=== PATIENT | male | born 1975 | race Caucasian/White ===

== ENCOUNTER 2017-11-07 13:53 | Emergency (ER) | payer MEDICARE, SELFPAY ==
[2017-11-07 13:53] VITALS: BP 148/101; PULSE 105; RESP 14; TEMP 36.5; O2SAT 97; BMI 19.4
--- NOTE | 2017-11-07 14:04 | ED.VISSUMM ---
- ER Visit Summary Date of Service: 11/07/17 Chief Complaint: [Insect sting] History of Present Illness: The patient is a 41 M [presents to the emergency department after being stung by an insect to his left calf approximately 20 minutes ago. Patient states that he was working in his garden when he got hit by something. Patient noticed redness and swelling so he applied some ice to the area. Patient states that he began feeling nauseated and then decided to come in and get evaluated. Patient denies lip or tongue swelling or difficulty breathing. Patient is unsure what may have stung him.] Physical Examination: [HEENT-PERRLA, EOMI. Cranial nerves II through XII grossly intact. TMs clear. Mucous membranes moist. No adenopathy. No angioedema noted of the lips, tongue, or soft tissue structures of the mouth. Cardiovascular-regular rate and rhythm without murmur or ectopy Lungs-clear to auscultation, chest wall stable without crepitus or subcu emphysema Abdomen-normoactive bowel sounds, soft, nontender, no rebound or rigidity, no peritoneal signs. Extremities-intact ?4, normal range of motion, normal pulses. Left calf-medial aspect there is an area of erythema measuring approximately 8 x 5 cm with a central portion slightly raised consistent with an insect sting with local inflammatory reaction. Patient neurovascular intact. Patient has no rashes otherwise. Test Results: [None indicated] Emergency Department Course and Treatment: [Patient was given a dose of Benadryl and dose of Zofran for nausea] Treatment Plan: [Patient advised to use ice to the area and Benadryl as needed for itching.] Disposition: [Discharged home in stable condition] Impression: [Insect Sting-local reaction] This note was generated with [employer] dictation software. It may contain incorrect words, spelling, and punctuation that were not noted in review of the chart prior to signing ED Disposition - Plan for ED Patient: Chief Complaint: Bite Referrals: Jose Graham MD [Primary Care Provider] -
--- NOTE | 2017-11-07 14:06 | ED.DEP ---
ED Disposition - Plan for ED Patient: Chief Complaint: Bite Instructions: ED Bite Sting Insect Gen Allergic React Referrals: Jose Graham MD [Primary Care Provider] - 3-5 Days
[2017-11-07] MEDS: DiphenhydrAMINE 25 MG Capsule PO (14:15)
[2017-11-07] MEDS: Ondansetron ODT 4 MG Tablet PO (14:15)
== END 2017-11-07 14:18 | disposition home or self-care (01) ==
LOC: ED 14:11
PROVIDERS: Emergency Provider Emergency Medicine; Family Provider Family Medicine; PCP Family Medicine
DX: T63.481A Toxic effect of venom of other arthropod, accidental (unintentional), initial encounter (principal); Y92.9 Unspecified place or not applicable; E11.9 Type 2 diabetes mellitus without complications; I10 Essential (primary) hypertension; K21.9 Gastro-esophageal reflux disease without esophagitis; J45.909 Unspecified asthma, uncomplicated; Z72.0 Tobacco use
CPT/HCPCS: 99283

== ENCOUNTER 2017-11-19 20:04 | Inpatient (IN) | payer MEDICARE, SELFPAY ==
[2017-11-19 20:04] VITALS: BP 116/82; PULSE 81; RESP 16; TEMP 37.9; O2SAT 98; BMI 19.9
[2017-11-19 20:34] LABS: Absolute Lymphocyte Count 1.03 X10^3/ul (0.83-4.51); Absolute Neutrophil Count 8.1 X10^3/uL (2.0-7.7); Basophil# 0.03 X10^3/uL; Basophil% 0.3 % (0-1); Eosinophil# 0.17 X10^3/uL; Eosinophils% 1.6 % (0-5); Hematocrit 35.8 % (40-54); Hemoglobin 11.8 g/dl (13.0-16.5); Lymphocyte # 1.03 X10^3/ul (4.0); Mean Corpuscular Hgb 28.9 pg (27.0-32.0); Mean Corpuscular Volume 87.5 fL (80-94); Mean Platelet Vol. 10.7 fl (6.2-12.0); Monocyte# 1.02 X10^3/uL; Monocyte% 9.9 % (0-10); Neutrophil # 8.08 X10^3/uL (2.7-7.7); Platelet Count 338 K/mm3 (150-450); RBC Distribution Width CV 13.4 % (11.6-14.6); RBC Distribution Width SD 43.2 fl (35.1-43.9); Red Blood Count 4.09 M/mm3 (4.6-6.2); White Blood Count 10.4 K/mm3 (4.4-11.0)
[2017-11-19 20:35] LABS: POSITIVE COUNT NO; POSITIVE DIFFERENTIAL NO; POSITIVE MORPHOLOGY NO
[2017-11-19 20:41] LABS: Erythrocyte Sedimentation Rate 81 mm/hr (0-15)
[2017-11-19] MEDS: Acetaminophen 500 MG Tablet 1000 MG PO (20:56)
[2017-11-19 21:11] LABS: Anion Gap 11 (5-15); BUN 25 mg/dL (7-18); CRP 3.81 mg/L (0.0-3.0); Calcium,Total 8.1 mg/dL (8.5-10.1); Chloride 93 mmol/L (98-107); Creatinine, Serum 1.78 mg/dL (0.70-1.30); EST Glomerular Filtration Rate 45 mL/min (>60); Est Glom Filt Rate - Afr Amer 54 mL/min (>60); Estimated Creatinine Clearance 42.82 ml/min; Glucose 613 mg/dL (74-106); Potassium 4.5 mmol/L (3.5-5.1); Sodium Level 131 mmol/L (136-145)
--- NOTE | 2017-11-19 21:24 | ED.VISSUMM ---
- ER Visit Summary Date of Service: 11/19/17 Chief Complaint: Right lower extremity redness History of Present Illness: The patient is a 41 M presenting with right lower extremity redness and pain. He states 2 weeks ago he sustained a wound to his right lower extremity. This was healing. He states that 2 days ago he noticed increasing redness around the wound with drainage. This has been progressively worsening over the past 2 days. He has a history of insulin dependent diabetes. He states his blood sugars are not well-controlled. He has had temperature up to 100.3. Denies other complaints. Physical Examination: Vitals are stable. Temperature 100.3. Alert no acute distress. HEENT exam is unremarkable. Neck is supple. Lungs are clear and equal bilaterally. Heart is regular rate and rhythm. Abdomen is soft nontender nondistended. Extremities right anterior lower extremity erythema surrounding wound, no drainage or fluctuance. Normal distal pulses.. Skin is warm and dry. No focal neurologic deficit. Remainder of exam is unremarkable. Emergency Department Course and Treatment: Right tib-fib x-ray is normal. CBC shows hemoglobin 11.8. ESR 81, CRP 3.81. Chemistry shows sodium 131, glucose 613, BUN 25, creatinine 1.78. Patient was given IV fluids, insulin, Ancef. Discussed with the hospitalist for admission. Disposition: Admission Impression: RLE cellulitis, KADIE, hyperglycemia This note was generated with [employer] dictation software. It may contain incorrect words, spelling, and punctuation that were not noted in review of the chart prior to signing ED Disposition - Plan for ED Patient: Chief Complaint: Cellulitis Referrals: Jose Graham MD [Primary Care Provider] -
[2017-11-19] MEDS: Cefazolin 1 GM/50 ML BAG IV (21:38)
[2017-11-19] MEDS: 0.9% Normal Saline 1,000 ML 999 ML IV (21:43)
[2017-11-19] MEDS: Insulin Lispro 100 UNIT/ML INSULN.PEN 15 UNIT SC (21:43)
[2017-11-19] MEDS: Morphine 4 MG/ML Syringe IV (21:46)
[2017-11-19] MEDS: Ondansetron 4 MG/2 ML Vial IV (21:47)
[2017-11-19 22:18] VITALS: BP 109/73; PULSE 79; RESP 18; O2SAT 99
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
[2017-11-19 23:12] VITALS: BMI 20.5
[2017-11-19 23:20] VITALS: BMI 20.5
[2017-11-19 23:32] VITALS: BP 118/81; PULSE 76; RESP 16; TEMP 37.2; O2SAT 98
[2017-11-20] VITALS (9 sets, daily range): BP systolic 150–158; BP diastolic 90–102; PULSE 73–91; RESP 16–18; TEMP 36.7–37; O2SAT 94–100
[2017-11-20] MEDS: 0.9% Normal Saline 1,000 ML 100 ML IV ×3 (00:05→22:13)
[2017-11-20] MEDS: Enoxaparin 40 MG/0.4 ML Syringe SC (00:20)
[2017-11-20 00:30] LABS: Bedside Glucose 332 mg/dL (70-110)
[2017-11-20] MEDS: oxyCODONE 5 MG Tablet PO ×5 (00:32→20:19)
[2017-11-20] MEDS: Morphine 2 MG/ML Syringe IV ×2 (02:04→06:43)
[2017-11-20 03:18] LABS: M R Staph aureus DNA By PCR Negative (Negative); Probe Check PASS; Specimen Processing Control PASS; Staph aureus DNA By PCR POSITIVE (Negative)
[2017-11-20] MEDS: traMADol 50 MG Tablet PO ×3 (03:41→22:15)
[2017-11-20] MEDS: Ondansetron 4 MG/2 ML Vial IV (05:34)
[2017-11-20 06:33] LABS: Absolute Lymphocyte Count 1.53 X10^3/ul (0.83-4.51); Absolute Neutrophil Count 11.8 X10^3/uL (2.0-7.7); Anion Gap 8 (5-15); BUN 22 mg/dL (7-18); BUN/Creat Ratio 17.2 RATIO (10-20); Basophil# 0.04 X10^3/uL; Basophil% 0.3 % (0-1); Calcium,Total 7.8 mg/dL (8.5-10.1); Chloride 99 mmol/L (98-107); Creatinine, Serum 1.28 mg/dL (0.70-1.30); EST Glomerular Filtration Rate 65 mL/min (>60); Eosinophil# 0.23 X10^3/uL; Eosinophils% 1.5 % (0-5); Est Glom Filt Rate - Afr Amer 79 mL/min (>60); Estimated Creatinine Clearance 61.36 ml/min; Glucose 46 mg/dL (74-106); Hematocrit 35.7 % (40-54); Hemoglobin 12.1 g/dl (13.0-16.5); Lymphocyte # 1.53 X10^3/ul (4.0); Lymphocyte % 10.1 % (19-41); Mean Corp Hgb Conc 33.9 g/gl (32-36); Mean Corpuscular Hgb 29.4 pg (27.0-32.0); Mean Corpuscular Volume 86.7 fL (80-94); Mean Platelet Vol. 10.5 fl (6.2-12.0); Monocyte# 1.54 X10^3/uL; Monocyte% 10.1 % (0-10); Neutrophil # 11.82 X10^3/uL (2.7-7.7); Neutrophil % 77.7 % (47-70); Platelet Count 387 K/mm3 (150-450); Potassium 3.7 mmol/L (3.5-5.1); RBC Distribution Width CV 13.1 % (11.6-14.6); RBC Distribution Width SD 40.8 fl (35.1-43.9); Red Blood Count 4.12 M/mm3 (4.6-6.2); Sodium Level 135 mmol/L (136-145); White Blood Count 15.2 K/mm3 (4.4-11.0)
[2017-11-20 06:39] LABS: Differential Indicated SCAN CRITERIA MET; POSITIVE COUNT NO; POSITIVE DIFFERENTIAL YES; POSITIVE MORPHOLOGY NO
[2017-11-20] MEDS: Sucralfate 1 GM Tablet PO ×4 (06:42→22:13)
[2017-11-20 06:58] LABS: Differential Comment SCANNED
[2017-11-20] MEDS: Albuterol 2.5 MG/3 ML VIAL.NEB. INHALATION ×3 (07:02→19:20)
[2017-11-20] MEDS: Budesonide Respules 0.5 MG/2 ML AMPUL.NEB. INHALATION ×2 (07:02→19:20)
[2017-11-20 07:41] LABS: Glucose 33 mg/dL (74-106)
[2017-11-20] MEDS: Dextrose 50%-Water 25 GM/50 ML DISP.SYRIN IV (07:49)
[2017-11-20 07:51] LABS: Bedside Glucose 35 mg/dL (70-110)
[2017-11-20 07:51] LABS: Bedside Glucose 41 mg/dL (70-110)
[2017-11-20 07:51] LABS: Bedside Glucose 31 mg/dL (70-110)
[2017-11-20 08:26] LABS: Bedside Glucose 174 mg/dL (70-110)
[2017-11-20] MEDS: Gabapentin 300 MG Capsule PO ×3 (08:31→17:48)
[2017-11-20] MEDS: Multivitamins,Ther W-Minerals Tablet 1 TABLET PO (08:31)
[2017-11-20] MEDS: Metoprolol Tartrate 50 MG Tablet PO ×2 (08:31→22:13)
[2017-11-20] MEDS: hydroCHLOROthiazide 25 MG Tablet PO (08:32)
[2017-11-20] MEDS: Sertraline 100 MG Tablet PO (08:32)
[2017-11-20] MEDS: Pantoprazole Sodium 40 MG Tablet PO (08:33)
[2017-11-20] MEDS: Glucerna Shake 120 ML LIQUID PO ×4 (10:13→22:14)
--- NOTE | 2017-11-20 10:19 | PCM.PN.HOSP ---
Patient Problems: Active and Suspected Problems Cellulitis of right leg (Acute) Trip and fall (Acute) On November 05, 2017 Subjective: Patient is a 41-year-old gentleman presenting with right lower extremity warmth with erythema and assessment of cellulitis made admitted to regular nursing floor for further management Objective: GENERAL: cooperative HEENT: Clear conjunctiva, NECK; supple, normal thyroid, CHEST: Clear to auscultation bilaterally, HEART: Regular S1 S2, no audible murmurs ABDOMEN: soft, non-tender, normoactive bowel sounds, RECTAL: deferred EXTREMITIES: An open excoriation involving the skin over the right knee as well as erythema along the entire right lower extremity DIVISION SUPERINTENDENT: Awake; no lateralizing signs. SKIN: Described above Vitals/I&O's: Vital Signs Temp Pulse Resp BP Pulse Ox 98.3 F 91 16 158/102 H 100 11/20/17 05:30 11/20/17 08:31 11/20/17 07:02 11/20/17 05:30 11/20/17 05:30 Oxygen Delivery Method Room Air Weight: 57.7 kg Intake and Output for Last 24 Hours 11/18/17 11/19/17 11/20/17 23:59 23:59 23:59 Intake Total 690 / 690 Balance 690 / 690 Laboratory Results 11/20/17 00:05: Hemoglobin A1c 11.0 H 11/20/17 00:10: POC Glucose 332 H 11/20/17 00:40: MRSA (PCR) Negative 11/20/17 00:40: S.aureus Protein A PCR POSITIVE H, MRSA (PCR) Negative 11/20/17 05:54: WBC 15.2 H, RBC 4.12 L, Hgb 12.1 L, Hct 35.7 L, MCV 86.7, MCH 29.4, MCHC 33.9, RDW 13.1, RDW Differential 40.8, Plt Count 387, MPV 10.5, Immature Gran % (Auto) 0.300, Neut % (Auto) 77.7 H, Lymph % (Auto) 10.1 L, [place] % (Auto) 10.1 H, Eos % (Auto) 1.5, Baso % (Auto) 0.3, Absolute Neuts (auto) 11.8 H, Absolute Lymphs (auto) 1.53, Total Counted Not Reportable, Differential Comment SCANNED, Diff Path Review July11/20/17 05:54: Sodium 135 L, Potassium 3.7, Chloride 99, Carbon Dioxide 28.0, Anion Gap 8, BUN 22 H, Creatinine 1.28, Estim Creat Clear Calc 61.36, Est GFR (MDRD) Af Amer 79, Est GFR (MDRD) Non-Af 65, BUN/Creatinine Ratio 17.2, Glucose 46 L, Calcium 7.8 L 11/20/17 07:01: POC Glucose 35 L* 11/20/17 07:24: POC Glucose 31 L* 11/20/17 07:25: Glucose 33 L* 11/20/17 07:43: POC Glucose 41 L* 11/20/17 08:23: POC Glucose 174 H Current Medications Acetaminophen (Tylenol) 650 mg PO Q6H PRN PRN PRN Reason: Mild Pain (scale 0-3)/T>100.7 Albuterol Sulfate (Ventolin Aerosols) 2.5 mg INHALATION Q4H PRN PRN PRN Reason: Bronchospasm Albuterol Sulfate (Ventolin Aerosols) 2.5 mg INHALATION Q6HWA.RT [facility] Last Admin: 11/20/17 07:02 Dose: 2.5 mg Budesonide (Pulmicort Aerosol) 0.5 mg INHALATION Q12H.RT [facility] Last Admin: 11/20/17 07:02 Dose: 0.5 mg Dextrose (D50w Syringe) 0 gm IV X1 PRN; Protocol PRN Reason: Hypoglycemia Last Admin: 11/20/17 07:49 Dose: 25 gm Docusate Sodium (Colace) 200 mg PO BID PRN PRN PRN Reason: Constipation Enoxaparin Sodium (Lovenox) 40 mg SC DAILY [facility] Last Admin: 11/20/17 00:20 Dose: 40 mg Gabapentin (Neurontin) 300 mg PO TIDCM [facility] Last Admin: 11/20/17 08:31 Dose: 300 mg Glucagon () 1 mg IM .X1 PRN PRN Reason: Hypoglycemia Hydrochlorothiazide (Hctz) 25 mg PO DAILY [facility] Last Admin: 11/20/17 08:32 Dose: 25 mg Sodium Chloride () 1,000 mls @ 100 mls/hr IV .Q10H [facility] Last Admin: 11/20/17 00:05 Dose: 100 mls/hr Ampicillin Sodium/Sulbactam (Sodium 3 gm/ Sodium Chloride) 112 mls @ 150 mls/hr IV Q6 [facility] Last Admin: 11/20/17 06:42 Dose: 150 mls/hr Insulin Glargine (Lantus (Bkc)) 35 units SC QHS [facility] Insulin Human Lispro (Humalog Kwikpen (Bkc)) 0 unit SQ ACHS [facility] PRN Reason: Protocol Last Admin: 11/20/17 07:54 Dose: Not Given Insulin Human Lispro (Humalog Kwikpen (Bkc)) 15 unit SC TIDAC [facility] Last Admin: 11/20/17 07:54 Dose: Not Given Metoprolol Tartrate (Lopressor (Beta [place])) 50 mg PO BID [facility] Last Admin: 11/20/17 08:31 Dose: 50 mg Montelukast Sodium (Singulair) 10 mg PO QHS [facility] Morphine Sulfate () 1 - 2 mg IV Q4H PRN PRN PRN Reason: Moderate Pain (pain scale 4-5) Last Admin: 11/20/17 06:43 Dose: 2 mg Multivitamins/Minerals (Multivitamin With Minerals) [facility] Last Admin: 11/20/17 08:31 Dose: 1 tablet Nutritional Formula (Lactose Free) (Glucerna Shake) 120 ml PO 4X/DAY [facility] Last Admin: 11/20/17 10:13 Dose: 120 ml Ondansetron HCl (Zofran) 4 mg IV Q8H PRN PRN PRN Reason: Nausea Last Admin: 11/20/17 05:34 Dose: 4 mg Oxycodone HCl (Oxyir) 5 mg PO Q4H PRN PRN PRN Reason: Moderate Pain (pain scale 4-5) Last Admin: 11/20/17 05:34 Dose: 5 mg Pantoprazole Sodium (Protonix) 40 mg PO DAILY [facility] Last Admin: 11/20/17 08:33 Dose: 40 mg Pyridostigmine [place] (Mestinon) 60 mg PO TID PRN PRN PRN Reason: MYASTHENIA GRAVIS Sertraline HCl (Zoloft) 100 mg PO DAILY [facility] Last Admin: 11/20/17 08:32 Dose: 100 mg Sodium Chloride () 5 - 30 ml IV UD PRN PRN Reason: SALINE FLUSH Sucralfate (Carafate) 1 gm PO 1HR_ACHS [facility] Last Admin: 11/20/17 06:42 Dose: 1 gm Tramadol HCl (Ultram) 50 mg PO Q6H PRN PRN PRN Reason: PAIN Last Admin: 11/20/17 03:41 Dose: 50 mg Medical Necessity - Tobacco Use Smoking Status: Current every day smoker Assessment/Plan All Active Problems Cellulitis of right leg (Acute) Trip and fall (Acute) Diarrhea (Resolved) Hyperglycemia (Acute) Intractable vomiting with nausea (Resolved) Transverse colitis (Resolved) Nausea (Resolved) Patient is a 41-year-old gentleman presenting with right lower extremity warmth with erythema and assessment of cellulitis made admitted to regular nursing floor for further management 1. Right lower extremity cellulitis with an open wound over the right knee: Admitted to regular nursing floor started on Unasyn colchicine with plans to adjust antibiotic therapy based on cultures 2. Healing right knee wound; wound care nurse consulted 3. Diabetes mellitus type 1 with complications including hypo-and hyperglycemia. Patient is on long-acting insulin in addition to pre-meal insulin held this morning as a result of patient being hypoglycemic 4. Hyponatremia secondary to pseudohyponatremia from patient's hypoglycemia 5. History of myasthenia gravis 6. Hypertension-blood pressure controlled, home medications continued with dose adjustment as needed 7. Irritable syndrome 8. DVT prophylaxis SC enoxaparin Active Medications Acetaminophen (Tylenol) 650 mg PO Q6H PRN PRN PRN Reason: Mild Pain (scale 0-3)/T>100.7 Albuterol Sulfate (Ventolin Aerosols) 2.5 mg INHALATION Q4H PRN PRN PRN Reason: Bronchospasm Albuterol Sulfate (Ventolin Aerosols) 2.5 mg INHALATION Q6HWA.RT [facility] Last Admin: 11/20/17 07:02 Dose: 2.5 mg Budesonide (Pulmicort Aerosol) 0.5 mg INHALATION Q12H.RT [facility] Last Admin: 11/20/17 07:02 Dose: 0.5 mg Dextrose (D50w Syringe) 0 gm IV X1 PRN; Protocol PRN Reason: Hypoglycemia Last Admin: 11/20/17 07:49 Dose: 25 gm Docusate Sodium (Colace) 200 mg PO BID PRN PRN PRN Reason: Constipation Enoxaparin Sodium (Lovenox) 40 mg SC DAILY [facility] Last Admin: 11/20/17 00:20 Dose: 40 mg Gabapentin (Neurontin) 300 mg PO TIDCM [facility] Last Admin: 11/20/17 08:31 Dose: 300 mg Glucagon () 1 mg IM .X1 PRN PRN Reason: Hypoglycemia Hydrochlorothiazide (Hctz) 25 mg PO DAILY [facility] Last Admin: 11/20/17 08:32 Dose: 25 mg Sodium Chloride () 1,000 mls @ 100 mls/hr IV .Q10H [facility] Last Admin: 11/20/17 00:05 Dose: 100 mls/hr Ampicillin Sodium/Sulbactam (Sodium 3 gm/ Sodium Chloride) 112 mls @ 150 mls/hr IV Q6 [facility] Last Admin: 11/20/17 06:42 Dose: 150 mls/hr Insulin Glargine (Lantus (Bkc)) 35 units SC QHS [facility] Insulin Human Lispro (Humalog Kwikpen (Bkc)) 0 unit SQ ACHS [facility] PRN Reason: Protocol Last Admin: 11/20/17 07:54 Dose: Not Given Insulin Human Lispro (Humalog Kwikpen (Bkc)) 15 unit SC TIDAC [facility] Last Admin: 11/20/17 07:54 Dose: Not Given Metoprolol Tartrate (Lopressor (Beta [place])) 50 mg PO BID [facility] Last Admin: 11/20/17 08:31 Dose: 50 mg Montelukast Sodium (Singulair) 10 mg PO QHS [facility] Morphine Sulfate () 1 - 2 mg IV Q4H PRN PRN PRN Reason: Moderate Pain (pain scale 4-5) Last Admin: 11/20/17 06:43 Dose: 2 mg Multivitamins/Minerals (Multivitamin With Minerals) [facility] Last Admin: 11/20/17 08:31 Dose: 1 tablet Nutritional Formula (Lactose Free) (Glucerna Shake) 120 ml PO 4X/DAY [facility] Last Admin: 11/20/17 10:13 Dose: 120 ml Ondansetron HCl (Zofran) 4 mg IV Q8H PRN PRN PRN Reason: Nausea Last Admin: 11/20/17 05:34 Dose: 4 mg Oxycodone HCl (Oxyir) 5 mg PO Q4H PRN PRN PRN Reason: Moderate Pain (pain scale 4-5) Last Admin: 11/20/17 05:34 Dose: 5 mg Pantoprazole Sodium (Protonix) 40 mg PO DAILY [facility] Last Admin: 11/20/17 08:33 Dose: 40 mg Pyridostigmine [place] (Mestinon) 60 mg PO TID PRN PRN PRN Reason: MYASTHENIA GRAVIS Sertraline HCl (Zoloft) 100 mg PO DAILY [facility] Last Admin: 11/20/17 08:32 Dose: 100 mg Sodium Chloride () 5 - 30 ml IV UD PRN PRN Reason: SALINE FLUSH Sucralfate (Carafate) 1 gm PO 1HR_ACHS [facility] Last Admin: 11/20/17 06:42 Dose: 1 gm Tramadol HCl (Ultram) 50 mg PO Q6H PRN PRN PRN Reason: PAIN Last Admin: 11/20/17 03:41 Dose: 50 mg Clinical Impression(s) from Imaging Studies Tibia/Fibula X-Ray 11/19/17 20:22 IMPRESSION: Normal x-ray examination of the tibia and fibula. Electronically Signed: Alexandro Cortés MD at 20:46 EDT , Service support , Code Visit Inpatient E&M: [id number] [facility] Hosp L3
[2017-11-20 10:20] LABS: Pathologist Review Reviewed
--- NOTE | 2017-11-20 10:56 | NURSING ---
wound photo: right whitt
[2017-11-20] MEDS: Acetaminophen 325 MG Tablet 650 MG PO ×2 (11:00→20:20)
[2017-11-20 11:11] LABS: Bedside Glucose 208 mg/dL (70-110)
[2017-11-20] MEDS: Insulin Lispro 100 UNIT/ML INSULN.PEN SQ ×2 (11:18→17:53)
[2017-11-20 13:10] LABS: Bedside Glucose 80 mg/dL (70-110)
--- NOTE | 2017-11-20 13:18 | CASEMGMT ---
RN CM Assessment completed. See Link. Pt states he is independent, Drives. Is able to change leg dressing himself. Daughter assists with laundry as this is in the basement. Pt states he drives when he has gas$ or has friend who can drive. Was to be on Glucerna shakes at home, states his insurance called him this am to say this will be covered under his insurance now. No other needs identified. Cari ZACARIAS RN ACM
[2017-11-20 14:51] LABS: Bedside Glucose 77 mg/dL (70-110)
[2017-11-20 16:05] LABS: Bedside Glucose 94 mg/dL (70-110)
[2017-11-20 18:16] LABS: Bedside Glucose 173 mg/dL (70-110)
[2017-11-20] MEDS: Montelukast 10 MG Tablet PO (22:13)
[2017-11-20 22:26] LABS: Bedside Glucose 272 mg/dL (70-110)
[2017-11-21] VITALS: BP 150/97; PULSE 81; RESP 16; TEMP 36.7; O2SAT 95
[2017-11-21] MEDS: oxyCODONE 5 MG Tablet PO ×2 (02:34→08:09)
[2017-11-21] MEDS: Acetaminophen 325 MG Tablet 650 MG PO (02:34)
[2017-11-21] MEDS: Morphine 4 MG/ML Syringe IV (03:15)
[2017-11-21] MEDS: traMADol 50 MG Tablet PO (06:08)
--- NOTE | 2017-11-21 06:10 | NURSING ---
BG 33 at this time, lab called and notified for STAT back up, 4 oz OJ given, patient also requested apple juice. Peanut butter and crackers given at this time. Patient is awake and alert and able to eat. Patient also ordering breakfast at this time.
[2017-11-21 06:14] VITALS: BP 173/89; PULSE 83; RESP 16; TEMP 36.9; O2SAT 96
[2017-11-21] MEDS: Sucralfate 1 GM Tablet PO (06:19)
[2017-11-21 06:25] LABS: Bedside Glucose 33 mg/dL (70-110)
--- NOTE | 2017-11-21 06:42 | NURSING ---
BG rechecked- 38, patient still eating, requested more apple juice and OJ. Patient still A&0x3, awake and alert.
[2017-11-21 06:47] LABS: Glucose 29 mg/dL (74-106)
[2017-11-21 06:58] VITALS: PULSE 78; RESP 16
[2017-11-21] MEDS: Dextrose 50%-Water 25 GM/50 ML DISP.SYRIN IV (06:58)
[2017-11-21] MEDS: Budesonide Respules 0.5 MG/2 ML AMPUL.NEB. INHALATION (06:58)
[2017-11-21 07:22] LABS: Bedside Glucose 65 mg/dL (70-110)
[2017-11-21 07:22] LABS: Bedside Glucose 139 mg/dL (70-110)
[2017-11-21 07:22] LABS: Bedside Glucose 38 mg/dL (70-110)
[2017-11-21 07:59] VITALS: BP 130/90; PULSE 77; RESP 18; TEMP 36.4; O2SAT 99
[2017-11-21 08:04] VITALS: PULSE 77
[2017-11-21] MEDS: Pantoprazole Sodium 40 MG Tablet PO (08:04)
[2017-11-21] MEDS: hydroCHLOROthiazide 25 MG Tablet PO (08:04)
[2017-11-21] MEDS: Multivitamins,Ther W-Minerals Tablet 1 TABLET PO (08:04)
[2017-11-21] MEDS: Metoprolol Tartrate 50 MG Tablet PO (08:04)
[2017-11-21] MEDS: Enoxaparin 40 MG/0.4 ML Syringe SC (08:05)
[2017-11-21] MEDS: Gabapentin 300 MG Capsule PO (08:05)
[2017-11-21] MEDS: Sertraline 100 MG Tablet PO (08:05)
[2017-11-21] MEDS: Glucerna Shake 120 ML LIQUID PO (08:09)
--- NOTE | 2017-11-21 09:59 | PCM.DC ---
- Discharge Diagnoses Current Active Problems: Current Active and Chronic Problems Cellulitis of right leg (Acute) Trip and fall (Acute) On November 05, 2017 You will use the following diet at home:: Calorie/Carbohydrate Controlled (specify 1200, 1400, etc) - 1999 Allergies/Adverse Reactions: Allergies lisinopril Allergy (Verified 11/20/17 00:12) Angioedema metoclopramide HCl [From Reglan] Allergy (Verified 11/19/17 20:07) Hives Medications to take at Discharge Insulin Aspart [Novolog Flexpen] 0 units SC TIDCM 12/28/12 Metoprolol Tartrate [Lopressor (beta mariama)] 50 mg PO BID 12/28/12 Omeprazole [Prilosec] 40 mg PO DAILY 12/28/12 Albuterol Inhaler [Ventolin Hfa] 2 puff INHALATION Q4H PRN PRN 08/19/14 Gabapentin [Neurontin] 300 mg PO TID 08/19/14 Budesonide/Formoterol 160/4.5 [Symbicort 160/4.5 Mcg Inhaler (SP)] 2 puff INHALATION BID 02/23/16 Montelukast Sodium [Singulair] 10 mg PO QHS 02/23/16 Hydrochlorothiazide 25 mg PO DAILY 06/21/16 Multivitamins,Ther W-Minerals [Multivitamin With Minerals] 1 tablet PO DAILY 06/21/16 Sucralfate 1 gm PO 4X/DAY 06/21/16 Pyridostigmine [place] [Mestinon] 60 mg PO TID PRN PRN 12/03/16 Sertraline HCl [Zoloft] 100 mg PO DAILY 02/07/17 traMADol [Ultram] 50 mg PO Q6H PRN PRN #20 tablet 02/09/17 Amox/Clavulanate Tablet [Augmentin Tablet] 500 mg PO Q12H #14 tab 11/21/17 Insulin Glargine,Hum.rec.anlog [Lantus] 20 unit SQ QHS #0 11/21/17 The following prescriptions were given: Amox/Clavulanate Tablet [Augmentin Tablet] 500 mg PO Q12H #14 tab Primary Care Physician: Jose Graham MD [Primary Care Provider] - Please follow up with your Primary Care Physician in: IN 3-5 DAYS Test Results: Test results from this visit will be discussed in further detail at your follow-up appointment, if applicable. Proposed Discharge Date: 11/21/17
--- NOTE | 2017-11-21 10:23 | PCA ---
Made followup appointment to his primary care doctor
--- NOTE | 2017-11-21 12:05 | PCM.DC.SUM ---
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 Right lower extremity cellulitis with an open wound over the right knee: Admitted to regular nursing floor started on Unasyn and vancomycin. Patient was discharged home on Augmentin 2. Healing right knee wound; wound care nurse consulted 3. Diabetes mellitus type 1 with complications including hypo-and hyperglycemia. Patient is on long-acting insulin in addition to pre-meal insulin held this morning as a result of patient being hypoglycemic; Patient insulin regimen adjusted on discharge 4. Hyponatremia secondary to pseudohyponatremia from patient's hypoglycemia 5. History of myasthenia gravis 6. Hypertension-blood pressure controlled, home medications continued with dose adjustment as needed 7. Irritable syndrome 8. DVT prophylaxis SC enoxaparin Discharge Diet: 1999 Calorie Control Diet Discharge Activity: Return to Normal Activity Home Medications: Medications to take at Discharge Insulin Aspart [Novolog Flexpen] 0 units SC TIDCM 12/28/12 Metoprolol Tartrate [Lopressor (beta mariama)] 50 mg PO BID 12/28/12 Omeprazole [Prilosec] 40 mg PO DAILY 12/28/12 Albuterol Inhaler [Ventolin Hfa] 2 puff INHALATION Q4H PRN PRN 08/19/14 Gabapentin [Neurontin] 300 mg PO TID 08/19/14 Budesonide/Formoterol 160/4.5 [Symbicort 160/4.5 Mcg Inhaler (SP)] 2 puff INHALATION BID 02/23/16 Montelukast Sodium [Singulair] 10 mg PO QHS 02/23/16 Hydrochlorothiazide 25 mg PO DAILY 06/21/16 Multivitamins,Ther W-Minerals [Multivitamin With Minerals] 1 tablet PO DAILY 06/21/16 Sucralfate 1 gm PO 4X/DAY 06/21/16 Pyridostigmine [place] [Mestinon] 60 mg PO TID PRN PRN 12/03/16 Sertraline HCl [Zoloft] 100 mg PO DAILY 02/07/17 traMADol [Ultram] 50 mg PO Q6H PRN PRN #20 tablet 02/09/17 Amox/Clavulanate Tablet [Augmentin Tablet] 500 mg PO Q12H #14 tab 11/21/17 Insulin Glargine,Hum.rec.anlog [Lantus] 20 unit SQ QHS #0 11/21/17 Following Prescrptions Were Given to Patient: Amox/Clavulanate Tablet [Augmentin Tablet] 500 mg PO Q12H #14 tab Primary Care Physician: Jose Graham MD [Primary Care Provider] - Please follow up with your Primary Care Physician in: IN 3-5 DAYS Please Follow Up With: Jose Graham MD Disposition: Home Minutes spent on discharge:: 35 Patient Condition:: Stable Medical Necessity - Tobacco Use Smoking Status: Current every day smoker Meaningful Use Info Meaningful Use Diagnoses (Choose all that apply): None applicable Code Visit Inpatient E&M: 99315 Disch Hosp
== END 2017-11-21 10:22 | disposition home or self-care (01) | DRG 603 ==
LOC: ED 21:45 → MS3 22:20
PROVIDERS: Admitting Provider Internal Medicine; Emergency Provider Emergency Medicine; Family Provider Family Medicine; PCP Family Medicine; Visit Provider Internal Medicine
DX: L03.115 Cellulitis of right lower limb (principal); N17.9 Acute kidney failure, unspecified; E87.1 Hypo-osmolality and hyponatremia; Z79.4 Long term (current) use of insulin; I10 Essential (primary) hypertension; G70.00 Myasthenia gravis without (acute) exacerbation; S81.801A Unspecified open wound, right lower leg, initial encounter; W01.0XXA Fall on same level from slipping, tripping and stumbling without subsequent striking against object, initial encounter; F17.200 Nicotine dependence, unspecified, uncomplicated; E10.65 Type 1 diabetes mellitus with hyperglycemia; K58.9 Irritable bowel syndrome, unspecified; E10.40 Type 1 diabetes mellitus with diabetic neuropathy, unspecified; E10.649 Type 1 diabetes mellitus with hypoglycemia without coma
CPT/HCPCS: 36415; 73590; 80048; 82947; 82962; 83036; 85025; 85652; 86140; 87040; 87640; 87641; 93970; 94640; 97802; 99284; 99406; J7030; A4216; J0295; J2405

== ENCOUNTER 2017-11-23 15:28 | Inpatient (IN) | payer MEDICARE, SELFPAY ==
[2017-11-23] VITALS (9 sets, daily range): BP systolic 152–217; BP diastolic 97–121; PULSE 82–95; RESP 14–24; TEMP 36.4–37.2; O2SAT 96–100; BMI 20.1; BMI 20.2; BMI 22.5
--- NOTE | 2017-11-23 16:35 | ED.VISSUMM ---
- ER Visit Summary Date of Service: 11/23/17 Chief Complaint: Right lower extremity infection History of Present Illness: The patient is a 41 M with history of type 1 diabetes and recent hospitalization for right lower extremity infection who presents for worsening of the infection at home. Patient states on November 05 he fell in the [place] and injured his right whitt. He developed an infection at that site and was hospitalized this past weekend, receiving IV antibiotics. He states he was discharged 2 days ago on Augmentin and the leg looked much better at the time. The redness had resolved and he was not having pain. He is taking all doses of Augmentin since discharge without missing any. Yesterday the leg began becoming red again, and today it is much more erythematous and painful. Patient also has a low-grade fever at home. Patient is feeling nauseated. He denies any other complaints at this time. Physical Examination: Vital signs: afebrile, heart rate 95, hypertensive at 169/109, no hypoxia on room air General: well nourished, well developed, in no distress, peers uncomfortable Skin: warm, dry HEENT: normocephalic and atraumatic; PERRL, EOMI, moist mucous membranes Cardiovascular: regular rate and rhythm without murmurs, no peripheral edema, 2+ pulses all distal extremities Respiratory: No increased work of breathing, lungs are clear to auscultation bilaterally, no rales, rhonchi or wheezing Abdominal: Abdomen is soft, nontender with normoactive bowel sounds, no guarding or rebound, no masses MSK: Moves all extremities, no deformities, normal strength, pitting edema to the right foot, erythema on the anterior tibia distal to the right knee and extending to the ankle, 5 x 3 cm area of induration and fluctuance just distal to the patella, no calf tenderness Neuro: Awake and alert, oriented ?4. No facial droop, sensation and motor function intact and symmetric Test Results: Abnormal Lab Results 11/23/17 11/23/17 11/23/17 16:45 17:00 17:00 WBC 8.9 RBC 4.00 L Hgb 11.6 L Hct 35.0 L MCV 87.5 MCH 29.0 MCHC 33.1 RDW 13.6 RDW Differential 43.5 Plt Count 369 MPV 10.8 Immature Gran % (Auto) 0.300 Neut % (Auto) 76.9 H Lymph % (Auto) 11.5 L [place] % (Auto) 7.8 Eos % (Auto) 3.3 Baso % (Auto) 0.2 Absolute Neuts (auto) 6.8 Absolute Lymphs (auto) 1.02 Total Counted Not Reportable PT 12.6 INR 0.9 APTT 37.4 H Sodium Potassium Chloride Carbon Dioxide Anion Gap BUN Creatinine Estim Creat Clear Calc Est GFR (MDRD) Af Amer Est GFR (MDRD) Non-Af BUN/Creatinine Ratio Glucose Hemoglobin A1c Lactic Acid Calcium Magnesium Iron TIBC Iron Saturation Ferritin Total Bilirubin AST ALT Alkaline Phosphatase Total Protein Albumin Globulin Albumin/Globulin Ratio Folate Urine Color Yellow Urine Clarity Sl. Cloudy Urine pH 7.0 Ur Specific [place] 1.010 Urine Protein 500 H Urine Glucose (UA) 100 H Urine Ketones 5 H Urine Occult Blood 25 H Urine Nitrite Negative Urine Bilirubin Negative Urine Urobilinogen Normal Ur Leukocyte Esterase Negative Urine RBC 0-5 SEEN Urine WBC 0-5 SEEN Ur Squamous Epith Cells 0 SEEN Ur Transition Epith Cell 0-5 SEEN Urine Bacteria 0 SEEN Hyaline Casts 0-5 SEEN Urine Mucus 0 SEEN S.aureus Protein A PCR MRSA (PCR) POC Glucose 11/23/17 11/23/17 11/23/17 17:00 17:00 17:00 WBC RBC Hgb Hct MCV MCH MCHC RDW RDW Differential Plt Count MPV Immature Gran % (Auto) Neut % (Auto) Lymph % (Auto) [place] % (Auto) Eos % (Auto) Baso % (Auto) Absolute Neuts (auto) Absolute Lymphs (auto) Total Counted PT INR APTT Sodium 136 Potassium 3.7 Chloride 99 Carbon Dioxide 26.0 Anion Gap 11 BUN 17 Creatinine 1.31 H Estim Creat Clear Calc 58.91 Est GFR (MDRD) Af Amer 77 Est GFR (MDRD) Non-Af 64 BUN/Creatinine Ratio 13.0 Glucose 282 H Hemoglobin A1c Lactic Acid 0.7 Calcium 8.4 L Magnesium 2.1 Iron 30 L TIBC 175 L Iron Saturation 17.1 Ferritin 339 Total Bilirubin 0.20 AST 34 ALT 116 H Alkaline Phosphatase 417 H Total Protein 6.8 Albumin 1.5 L Globulin 5.3 H Albumin/Globulin Ratio 0.3 L Folate 30.70 Urine Color Urine Clarity Urine pH Ur Specific [place] Urine Protein Urine Glucose (UA) Urine Ketones Urine Occult Blood Urine Nitrite Urine Bilirubin Urine Urobilinogen Ur Leukocyte Esterase Urine RBC Urine WBC Ur Squamous Epith Cells Ur Transition Epith Cell Urine Bacteria Hyaline Casts Urine Mucus S.aureus Protein A PCR MRSA (PCR) POC Glucose 11/23/17 11/23/17 11/23/17 17:00 19:40 21:04 WBC RBC Hgb Hct MCV MCH MCHC RDW RDW Differential Plt Count MPV Immature Gran % (Auto) Neut % (Auto) Lymph % (Auto) [place] % (Auto) Eos % (Auto) Baso % (Auto) Absolute Neuts (auto) Absolute Lymphs (auto) Total Counted PT INR APTT Sodium Potassium Chloride Carbon Dioxide Anion Gap BUN Creatinine Estim Creat Clear Calc Est GFR (MDRD) Af Amer Est GFR (MDRD) Non-Af BUN/Creatinine Ratio Glucose Hemoglobin A1c 10.9 H Lactic Acid Calcium Magnesium Iron TIBC Iron Saturation Ferritin Total Bilirubin AST ALT Alkaline Phosphatase Total Protein Albumin Globulin Albumin/Globulin Ratio Folate Urine Color Urine Clarity Urine pH Ur Specific [place] Urine Protein Urine Glucose (UA) Urine Ketones Urine Occult Blood Urine Nitrite Urine Bilirubin Urine Urobilinogen Ur Leukocyte Esterase Urine RBC Urine WBC Ur Squamous Epith Cells Ur Transition Epith Cell Urine Bacteria Hyaline Casts Urine Mucus S.aureus Protein A PCR POSITIVE H MRSA (PCR) Negative POC Glucose 227 H Clinical Impression(s) from Imaging Studies Tibia/Fibula X-Ray 11/23/17 16:34 IMPRESSION: Normal x-ray examination of the tibia and fibula. Electronically Signed: Neisha Pride MD at 18:09 EDT Tel , Service support , Chest X-Ray 11/23/17 16:45 IMPRESSION: 1. Trace left pleural effusion versus chronic fibrosis. 2. Minimal fibrotic changes in the lung bases. Electronically Signed: Neisha Pride MD at 18:08 EDT Tel , Service support , Emergency Department Course and Treatment: Patient presents with worsening of a right lower leg infection which was recently treated and improving with inpatient management. Patient has been compliant with his antibiotics. His examination is concerning for an abscess over the large area of cellulitis. Patient had no leukocytosis. Lactate was normal at 0.7. He was afebrile but was borderline tachycardic at 95. Because of the worsening of patient's cellulitis, it may be secondary to the abscess formation and inability of the antibiotics to effectively treat this. Thus incision and drainage was performed. Verbal consent was obtained. Patient's leg was cleansed with Shur-Clens. 1% lidocaine was used to locally anesthetize the area of maximum fluctuance. A 1 cm incision was made with an 11 blade over the area of maximum fluctuance with return of copious amounts of homogenous pus. Cultures were obtained. The abscess cavity was drained and loculations were broken with curved hemostats. He tolerated the procedure well. Patient was started on Unasyn and Zosyn. He was managed with morphine. An x-ray of the tibia and fibula had been obtained to look for any subcutaneous gas or signs of deep space infection that might be concerning for necrotizing fasciitis or osteomyelitis. X-ray was unremarkable. Given patient's failure on outpatient treatment, worsening of the cellulitis, and the development of the abscess, she will benefit from further inpatient management and IV antibiotics for his cellulitis, especially given that he is diabetic. He was discussed with Dr. Huynh and admitted for further management. Treatment Plan: [] Disposition: [] Impression: Right lower extremity cellulitis with abscess, failed outpatient therapy, incision and drainage This note was generated with [employer] dictation software. It may contain incorrect words, spelling, and punctuation that were not noted in review of the chart prior to signing ED Disposition - Plan for ED Patient: Disposition: Acute Care Hospital [facility] Chief Complaint: Lower Extremity Injury
--- NOTE | 2017-11-23 16:38 | ED.DCSUM_ITS ---
- ER Visit Summary Date of Service: 11/23/17 Chief Complaint: Right lower extremity infection History of Present Illness: The patient is a 41 M with history of type 1 diabetes and recent hospitalization for right lower extremity infection who presents for worsening of the infection at home. Patient states on November 05 he fell in the [place] and injured his right whitt. He developed an infection at that site and was hospitalized this past weekend, receiving IV antibiotics. He states he was discharged 2 days ago on Augmentin and the leg looked much better at the time. The redness had resolved and he was not having pain. He is taking all doses of Augmentin since discharge without missing any. Yesterday the leg began becoming red again, and today it is much more erythematous and painful. Patient also has a low-grade fever at home. Patient is feeling nauseated. He denies any other complaints at this time. Physical Examination: Vital signs: afebrile, heart rate 95, hypertensive at 169/109, no hypoxia on room air General: well nourished, well developed, in no distress, peers uncomfortable Skin: warm, dry HEENT: normocephalic and atraumatic; PERRL, EOMI, moist mucous membranes Cardiovascular: regular rate and rhythm without murmurs, no peripheral edema, 2 + pulses all distal extremities Respiratory: No increased work of breathing, lungs are clear to auscultation bilaterally, no rales, rhonchi or wheezing Abdominal: Abdomen is soft, nontender with normoactive bowel sounds, no guarding or rebound, no masses MSK: Moves all extremities, no deformities, normal strength, pitting edema to the right foot, erythema on the anterior tibia distal to the right knee and extending to the ankle, 5 x 3 cm area of induration and fluctuance just distal to the patella, no calf tenderness Neuro: Awake and alert, oriented ?4. No facial droop, sensation and motor function intact and symmetric Test Results: Abnormal Lab Results 11/23/17 11/23/17 11/23/17 16:45 17:00 17:00 WBC 8.9 RBC 4.00 L Hgb 11.6 L Hct 35.0 L MCV 87.5 MCH 29.0 MCHC 33.1 RDW 13.6 RDW Differential 43.5 Plt Count 369 MPV 10.8 Immature Gran % (Auto) 0.300 Neut % (Auto) 76.9 H Lymph % (Auto) 11.5 L [place] % (Auto) 7.8 Eos % (Auto) 3.3 Baso % (Auto) 0.2 Absolute Neuts (auto) 6.8 Absolute Lymphs (auto) 1.02 Total Counted Not Reportable PT 12.6 INR 0.9 APTT 37.4 H Sodium Potassium Chloride Carbon Dioxide Anion Gap BUN Creatinine Estim Creat Clear Calc Est GFR (MDRD) Af Amer Est GFR (MDRD) Non-Af BUN/Creatinine Ratio Glucose Hemoglobin A1c Lactic Acid Calcium Magnesium Iron TIBC Iron Saturation Ferritin Total Bilirubin AST ALT Alkaline Phosphatase Total Protein Albumin Globulin Albumin/Globulin Ratio Folate Urine Color Yellow Urine Clarity Sl. Cloudy Urine pH 7.0 Ur Specific [place] 1.010 Urine Protein 500 H Urine Glucose (UA) 100 H Urine Ketones 5 H Urine Occult Blood 25 H Urine Nitrite Negative Urine Bilirubin Negative Urine Urobilinogen Normal Ur Leukocyte Esterase Negative Urine RBC 0-5 SEEN Urine WBC 0-5 SEEN Ur Squamous Epith Cells 0 SEEN Ur Transition Epith Cell 0-5 SEEN Urine Bacteria 0 SEEN Hyaline Casts 0-5 SEEN Urine Mucus 0 SEEN S.aureus Protein A PCR MRSA (PCR) POC Glucose 11/23/17 11/23/17 11/23/17 17:00 17:00 17:00 WBC RBC Hgb Hct MCV MCH MCHC RDW RDW Differential Plt Count MPV Immature Gran % (Auto) Neut % (Auto) Lymph % (Auto) [place] % (Auto) Eos % (Auto) Baso % (Auto) Absolute Neuts (auto) Absolute Lymphs (auto) Total Counted PT INR APTT Sodium 136 Potassium 3.7 Chloride 99 Carbon Dioxide 26.0 Anion Gap 11 BUN 17 Creatinine 1.31 H Estim Creat Clear Calc 58.91 Est GFR (MDRD) Af Amer 77 Est GFR (MDRD) Non-Af 64 BUN/Creatinine Ratio 13.0 Glucose 282 H Hemoglobin A1c Lactic Acid 0.7 Calcium 8.4 L Magnesium 2.1 Iron 30 L TIBC 175 L Iron Saturation 17.1 Ferritin 339 Total Bilirubin 0.20 AST 34 ALT 116 H Alkaline Phosphatase 417 H Total Protein 6.8 Albumin 1.5 L Globulin 5.3 H Albumin/Globulin Ratio 0.3 L Folate 30.70 Urine Color Urine Clarity Urine pH Ur Specific [place] Urine Protein Urine Glucose (UA) Urine Ketones Urine Occult Blood Urine Nitrite Urine Bilirubin Urine Urobilinogen Ur Leukocyte Esterase Urine RBC Urine WBC Ur Squamous Epith Cells Ur Transition Epith Cell Urine Bacteria Hyaline Casts Urine Mucus S.aureus Protein A PCR MRSA (PCR) POC Glucose 11/23/17 11/23/17 11/23/17 17:00 19:40 21:04 WBC RBC Hgb Hct MCV MCH MCHC RDW RDW Differential Plt Count MPV Immature Gran % (Auto) Neut % (Auto) Lymph % (Auto) [place] % (Auto) Eos % (Auto) Baso % (Auto) Absolute Neuts (auto) Absolute Lymphs (auto) Total Counted PT INR APTT Sodium Potassium Chloride Carbon Dioxide Anion Gap BUN Creatinine Estim Creat Clear Calc Est GFR (MDRD) Af Amer Est GFR (MDRD) Non-Af BUN/Creatinine Ratio Glucose Hemoglobin A1c 10.9 H Lactic Acid Calcium Magnesium Iron TIBC Iron Saturation Ferritin Total Bilirubin AST ALT Alkaline Phosphatase Total Protein Albumin Globulin Albumin/Globulin Ratio Folate Urine Color Urine Clarity Urine pH Ur Specific [place] Urine Protein Urine Glucose (UA) Urine Ketones Urine Occult Blood Urine Nitrite Urine Bilirubin Urine Urobilinogen Ur Leukocyte Esterase Urine RBC Urine WBC Ur Squamous Epith Cells Ur Transition Epith Cell Urine Bacteria Hyaline Casts Urine Mucus S.aureus Protein A PCR POSITIVE H MRSA (PCR) Negative POC Glucose 227 H Clinical Impression(s) from Imaging Studies Tibia/Fibula X-Ray 11/23/17 16:34 IMPRESSION: Normal x-ray examination of the tibia and fibula. Electronically Signed: Neisha Pride MD at 18:09 EDT Tel , Service support , Chest X-Ray 11/23/17 16:45 IMPRESSION: 1. Trace left pleural effusion versus chronic fibrosis. 2. Minimal fibrotic changes in the lung bases. Electronically Signed: Neisha Pride MD at 18:08 EDT Tel , Service support , Emergency Department Course and Treatment: Patient presents with worsening of a right lower leg infection which was recently treated and improving with inpatient management. Patient has been compliant with his antibiotics. His examination is concerning for an abscess over the large area of cellulitis. Patient had no leukocytosis. Lactate was normal at 0.7. He was afebrile but was borderline tachycardic at 95. Because of the worsening of patient's cellulitis, it may be secondary to the abscess formation and inability of the antibiotics to effectively treat this. Thus incision and drainage was performed. Verbal consent was obtained. Patient's leg was cleansed with Shur- Clens. 1% lidocaine was used to locally anesthetize the area of maximum fluctuance. A 1 cm incision was made with an 11 blade over the area of maximum fluctuance with return of copious amounts of homogenous pus. Cultures were obtained. The abscess cavity was drained and loculations were broken with curved hemostats. He tolerated the procedure well. Patient was started on Unasyn and Zosyn. He was managed with morphine. An x-ray of the tibia and fibula had been obtained to look for any subcutaneous gas or signs of deep space infection that might be concerning for necrotizing fasciitis or osteomyelitis. X-ray was unremarkable. Given patient's failure on outpatient treatment, worsening of the cellulitis, and the development of the abscess, she will benefit from further inpatient management and IV antibiotics for his cellulitis, especially given that he is diabetic. He was discussed with Dr. Huynh and admitted for further management. Treatment Plan: [] Disposition: [] Impression: Right lower extremity cellulitis with abscess, failed outpatient therapy, incision and drainage This note was generated with [employer]aya dictation software. It may contain incorrect words, spelling, and punctuation that were not noted in review of the chart prior to signing ED Disposition - Plan for ED Patient: Disposition: Acute Care Hospital [facility] Chief Complaint: Lower Extremity Injury
[2017-11-23 16:50] LABS: Bacteria 0 SEEN /hpf (None Seen); Mucous, Urine 0 SEEN /hpf (<or=2+); Squamous Epithelial Cells - UA 0 SEEN /hpf (0-5)
[2017-11-23 16:55] LABS: Color, Urine Yellow (Yellow); Glucose, Dipstick 100 mg/dl (Normal); Ketone-Dipstick 5 mg/dl (Negative); Leukocyte Esterase-Dipstick Negative /ul (Negative); Nitrite-Dipstick Negative (Negative); Occult Blood-Urine 25 /ul (Negative); Protein-Dipstick 500 mg/dl (Negative); Urine Bilirubin Dipstick Negative (Negative); Urine Clarity Sl. Cloudy (Clear); Urine Urobilinogen Normal (Normal)
[2017-11-23] MEDS: Lactated Ringers 1,000 ML 250 ML IV (16:56)
[2017-11-23] MEDS: Acetaminophen 500 MG Tablet 1000 MG PO (16:56)
[2017-11-23 17:08] LABS: Hyaline Cast 0-5 SEEN /lpf (0-5)
[2017-11-23 17:11] LABS: Absolute Lymphocyte Count 1.02 X10^3/ul (0.83-4.51); Absolute Neutrophil Count 6.8 X10^3/uL (2.0-7.7); Basophil# 0.02 X10^3/uL; Basophil% 0.2 % (0-1); Eosinophil# 0.29 X10^3/uL; Eosinophils% 3.3 % (0-5); Hemoglobin 11.6 g/dl (13.0-16.5); Lymphocyte # 1.02 X10^3/ul (4.0); Lymphocyte % 11.5 % (19-41); Mean Corp Hgb Conc 33.1 g/gl (32-36); Mean Corpuscular Volume 87.5 fL (80-94); Mean Platelet Vol. 10.8 fl (6.2-12.0); Monocyte# 0.69 X10^3/uL; Monocyte% 7.8 % (0-10); Neutrophil % 76.9 % (47-70); POSITIVE COUNT NO; POSITIVE DIFFERENTIAL NO; POSITIVE MORPHOLOGY NO; Platelet Count 369 K/mm3 (150-450); RBC Distribution Width CV 13.6 % (11.6-14.6); RBC Distribution Width SD 43.5 fl (35.1-43.9); White Blood Count 8.9 K/mm3 (4.4-11.0)
[2017-11-23 17:11] LABS: White Blood Cells 0-5 SEEN /hpf (0-5)
[2017-11-23 17:12] LABS: Red Blood Cells-Urine 0-5 SEEN /hpf (0-5); Transitional Epithelial - Ur 0-5 SEEN /hpf (0-5)
[2017-11-23 17:18] LABS: International Normalized Ratio 0.9; Prothrombin Time (Protime)PT. 12.6 SECONDS (11.7-14.9)
[2017-11-23 17:19] LABS: Partial Thromboplast Time 37.4 Seconds (24.1-36.2)
[2017-11-23 17:41] LABS: ALB/GLOB Ratio 0.3 RATIO (0.9-2.4); AST(SGOT) 34 U/L (15-37); Alanine Aminotransfer ALT/SGPT 116 U/L (16-61); Albumin, Serum 1.5 g/dL (3.2-5.0); Alkaline Phosphatase 417 U/L (45-117); Anion Gap 11 (5-15); BUN 17 mg/dL (7-18); Calcium,Total 8.4 mg/dL (8.5-10.1); Chloride 99 mmol/L (98-107); Creatinine, Serum 1.31 mg/dL (0.70-1.30); EST Glomerular Filtration Rate 64 mL/min (>60); Est Glom Filt Rate - Afr Amer 77 mL/min (>60); Estimated Creatinine Clearance 58.91 ml/min; Globulin 5.3 g/dL (2.2-4.2); Glucose 282 mg/dL (74-106); Potassium 3.7 mmol/L (3.5-5.1); Protein, Total 6.8 g/dL (6.4-8.2); Sodium Level 136 mmol/L (136-145)
[2017-11-23 17:42] LABS: Lactic Acid 0.7 mmol/L (0.4-2.0)
[2017-11-23] MEDS: Ondansetron 4 MG/2 ML Vial IV (17:49)
[2017-11-23] MEDS: Morphine 4 MG/ML Syringe IV ×2 (17:49→22:30)
[2017-11-23] MEDS: morphine 8 MG/ML Syringe IV (19:40)
--- NOTE | 2017-11-23 19:42 | PCM.HP.STD ---
Problem List (1) Cellulitis of right leg Status: Acute (2) Diabetes type I Status: Chronic Qualifiers: Diabetes mellitus complication status: with unspecified complications Qualified Code(s): E10.8 - Type 1 diabetes mellitus with unspecified complications (3) HTN (hypertension) Status: Chronic Qualifiers: Hypertension type: essential hypertension Qualified Code(s): I10 - Essential (primary) hypertension (4) IBS (irritable bowel syndrome) Status: Chronic Qualifiers: Irritable bowel syndrome type: unspecified Qualified Code(s): K58.9 - Irritable bowel syndrome without diarrhea (5) Myasthenia gravis Status: Chronic History of Present Illness Date of Admission: 11/23/17 Chief Complaint: RLE infection The patient is a 41 y/o M w/ PMHx: Diabetes mellitus type I, HTN, HLD, Chronic COPD/Asthma, Tobacco use, Myasthenia Gravis s/p thymectomy, IBS, recently admitted 11/19/17 and discharged on 11/21/17 with RLE extremity cellulitis whitt discharged on augmentin regimen for an additional 7 days of treatment, improved upon discharge initially but has been worsened since Monday with onset redness, edema and discomfort w/ some development of fluctuance with ED I+D with copious purulent output. In the ED work-up included T 99, heart rate 95, BP 169/109, respiratory rate 18, 99% on room air, BC with WBC 8.9, hemoglobin 11.6, platelet 369 without market left shift, coags unremarkable aside PTT 37.4, CMP notable for BUN/creatinine 17/1.31 (baseline creatinine 0.8-1), AST/ALT 34/116 (noted intermittent enzyme elevations prior), Alk phos 417, UA without evidence UTI, plain film R Tib/Fib unremarkable, CXR w/ trace L pleural effusion versus chronic fibrosis, minimal fibrotic changes in the lung bases. In the ED patient administered Zofran, morphine, lidocaine, Tylenol, LR, Unasyn. Wound Cx obtained s/p I+D and discussed with ED physician with Wound MRSA PCR addition. Past Medical History Past Medical History (Chronic Problems): Chronic Problems IBS (irritable bowel syndrome) (Chronic) HTN (hypertension) (Chronic) Diabetes type I (Chronic) Myasthenia gravis (Chronic) Diabetes mellitus (Chronic) Allergies lisinopril Allergy (Verified 11/23/17 15:30) Angioedema losartan Allergy (Verified 11/23/17 15:30) Angioedema metoclopramide HCl [From Reglan] Allergy (Verified 11/23/17 15:30) Hives Home Medications: Ambulatory Orders Medication Instructions Recorded Insulin Aspart [Novolog Flexpen] 0 units SC TIDCM 12/28/12 Metoprolol Tartrate [Lopressor 50 mg PO BID 12/28/12 (beta mariama)] Omeprazole [Prilosec] 40 mg PO DAILY 12/28/12 Albuterol Inhaler [Ventolin Hfa] 2 puff INHALATION Q4H PRN PRN 08/19/14 Gabapentin [Neurontin] 300 mg PO TID 08/19/14 Budesonide/Formoterol 160/4.5 2 puff INHALATION BID 02/23/16 [Symbicort 160/4.5 Mcg Inhaler (SP)] Montelukast Sodium [Singulair] 10 mg PO QHS 02/23/16 Hydrochlorothiazide 25 mg PO DAILY 06/21/16 Multivitamins,Ther W-Minerals 1 tablet PO DAILY 06/21/16 [Multivitamin With Minerals] Sucralfate 1 gm PO 4X/DAY 06/21/16 Pyridostigmine Dupont [Mestinon] 60 mg PO TID PRN PRN 12/03/16 Sertraline HCl [Zoloft] 100 mg PO DAILY 02/07/17 Amox/Clavulanate Tablet [Augmentin 500 mg PO Q12H 11/23/17 Tablet] Furosemide [Lasix] 20 mg PO DAILY 11/23/17 Insulin Glargine,Hum.rec.anlog 14 unit SQ QHS 11/23/17 [Lantus] Surgical History: - - Thymectomy, cholecystectomy, teeth resection. Psychiatric History: No pertinent psych hx Lives: With Family - Lives with his young daughter. Smoking Status: Current every day smoker - 1 ppd. Tobacco Use: Cigarettes Alcohol: None Drugs: Marijuana - *Family History Maternal History Items: - - Crohn's disease and thyroid disease. Paternal History Items: Cancer, Hypertension, - Review of Systems Constitutional: Reports: Malaise, Weakness, Fatigue. Denies: Chills, Fever, Weight Change HEENT: Denies: Head Aches, Sinus Congestion, Sinus Drainage Cardiovascular: Denies: Chest Pain, Palpitations Respiratory: Denies: Cough, Shortness of breath at rest, Sputum production Gastrointestinal: Reports: Constipation, Diarrhea. Denies: Abdominal Pain, Nausea, Vomiting Genitourinary: Denies: Dysuria Musculoskeletal: Denies: Joint Pain, Joint Tenderness Skin: Reports: Skin Changes, Wounds. Denies: Rash Neurological: Denies: Numbness, Tingling, Focal weakness Psychiatric: Denies: Anxiety, Depression, Homicidal Ideations, Suicidal Ideations Hematologic/ Lymphatic: Denies: Easy Bruising, Easy Bleeding VTE Information - Inpt Only VTE Present on Admission: No VTE Mechan Device Prophylaxis: SCD's VTE Pharm Prophylaxis ordered?: Yes Subjective: Seated upright in the ED bed, fatigued, recent I+D w/ pain to RLE. Objective: Physical Examination: General: awake, alert, oriented x 3 and cooperative, seated upright in the ED bed in no apparent distress but notes discomfort ongoing to RLE. Skin: normal color, turgor, no icterus, cyanosis except RLE w/ erythema extending from ankle to proximal whitt, edematous, tender to palpation, warm, status post I&D with wick in place with noted purulent discharge with I&D. HEENT: AT/NC, EOMI, PERRLA, mildly dry MM, no carotid bruits or JVD noted. Lungs: Mildly diminished BS BL bases, moderate effort, no rales, ronchi or wheezing. Heart: Regular rate and rhythm; no gallop, rub audible. Abdomen: soft, thin habitus, NTTP, ND, normal BS, no HSM. Extremities: no cyanosis, clubbing, see skin. Neurological: patient awake, alert, oriented x 3; cognitive function intact; pupils equally reactive to light and accomodation; cranial nerves II-XII grossly normal, moving all 4 extremities, no focal deficits, strength mildly globally decreased secondary to acute presentation. Psychiatric: affect appears normal, no acute evidence of depressive or anxiety feelings. - Physical Exam Vital Signs Temp Pulse Resp BP Pulse Ox 98.5 F 88 24 H 187/116 H 96 11/23/17 17:51 11/23/17 19:11 11/23/17 19:11 11/23/17 19:11 11/23/17 19:11 Oxygen Delivery Method Room Air Weight: 125 lb Body Mass Index (BMI) 20.1 Finger Stick Blood Glucose 406 Laboratory Tests Past 24 Hrs 11/23/17 11/23/17 11/23/17 16:45 17:00 17:00 WBC 8.9 RBC 4.00 L Hgb 11.6 L Hct 35.0 L MCV 87.5 MCH 29.0 MCHC 33.1 RDW 13.6 RDW Differential 43.5 Plt Count 369 MPV 10.8 Immature Gran % (Auto) 0.300 Neut % (Auto) 76.9 H Lymph % (Auto) 11.5 L [place] % (Auto) 7.8 Eos % (Auto) 3.3 Baso % (Auto) 0.2 Absolute Neuts (auto) 6.8 Absolute Lymphs (auto) 1.02 Total Counted Not Reportable PT 12.6 INR 0.9 APTT 37.4 H Sodium Potassium Chloride Carbon Dioxide Anion Gap BUN Creatinine Estim Creat Clear Calc Est GFR (MDRD) Af Amer Est GFR (MDRD) Non-Af BUN/Creatinine Ratio Glucose Lactic Acid Calcium Total Bilirubin AST ALT Alkaline Phosphatase Total Protein Albumin Globulin Albumin/Globulin Ratio Urine Color Yellow Urine Clarity Sl. Cloudy Urine pH 7.0 Ur Specific [place] 1.010 Urine Protein 500 H Urine Glucose (UA) 100 H Urine Ketones 5 H Urine Occult Blood 25 H Urine Nitrite Negative Urine Bilirubin Negative Urine Urobilinogen Normal Ur Leukocyte Esterase Negative Urine RBC 0-5 SEEN Urine WBC 0-5 SEEN Ur Squamous Epith Cells 0 SEEN Ur Transition Epith Cell 0-5 SEEN Urine Bacteria 0 SEEN Hyaline Casts 0-5 SEEN Urine Mucus 0 SEEN 11/23/17 11/23/17 17:00 17:00 WBC RBC Hgb Hct MCV MCH MCHC RDW RDW Differential Plt Count MPV Immature Gran % (Auto) Neut % (Auto) Lymph % (Auto) [place] % (Auto) Eos % (Auto) Baso % (Auto) Absolute Neuts (auto) Absolute Lymphs (auto) Total Counted PT INR APTT Sodium 136 Potassium 3.7 Chloride 99 Carbon Dioxide 26.0 Anion Gap 11 BUN 17 Creatinine 1.31 H Estim Creat Clear Calc 58.91 Est GFR (MDRD) Af Amer 77 Est GFR (MDRD) Non-Af 64 BUN/Creatinine Ratio 13.0 Glucose 282 H Lactic Acid 0.7 Calcium 8.4 L Total Bilirubin 0.20 AST 34 ALT 116 H Alkaline Phosphatase 417 H Total Protein 6.8 Albumin 1.5 L Globulin 5.3 H Albumin/Globulin Ratio 0.3 L Urine Color Urine Clarity Urine pH Ur Specific [place] Urine Protein Urine Glucose (UA) Urine Ketones Urine Occult Blood Urine Nitrite Urine Bilirubin Urine Urobilinogen Ur Leukocyte Esterase Urine RBC Urine WBC Ur Squamous Epith Cells Ur Transition Epith Cell Urine Bacteria Hyaline Casts Urine Mucus Assessment/Plan All Active Problems Cellulitis of right leg (Acute) Trip and fall (Acute) Diarrhea (Resolved) Hyperglycemia (Acute) Intractable vomiting with nausea (Resolved) Transverse colitis (Resolved) Nausea (Resolved) The patient is a 41 y/o M w/ PMHx: Diabetes mellitus type I, HTN, HLD, Chronic COPD/Asthma, Tobacco use, Myasthenia Gravis s/p thymectomy, IBS, recently admitted 11/19/17 and discharged on 11/21/17 with RLE extremity cellulitis whitt discharged on augmentin regimen for an additional 7 days of treatment, improved upon discharge initially but has been worsened since Monday with onset redness, edema and discomfort w/ some development of fluctuance with ED I+D with copious purulent output. (1) RLE Extremity Cellulitis w/ Abscess: Will admit to [facility], maintain on IV vanc and zosyn, pending Wound Cx and added Wound MRSA PCR, plan repeat CBC in AM, continue affected extremity elevation above heart when seated and in bed, monitor erythema outline with VS checks. (2) Acute kidney injury: Secondary to acute infection, suspected mild decreased oral intake. Admission BUN/Cr 17/1.31, prior baseline creatinine noted to be 0.8-1.0. Will hydrate, hold nephrotoxic medications and repeat chemistry in AM. (3) Elevated Liver Enzymes: Noted prior intermittent elevations, will hydrate, repeat CMP in AM given acute presentation #1. (4) Chronic Normocytic Anemia: Unclear etiology, noted ongoing, admission Hgb 11.6, stable, will obtain Fe panel, ferritin, vitamin B12 and folic acid level. (5) Diabetes mellitus type I: Continue home insulin regimen, ADA diet, accu checks w/ ISS. (6) Chronic Asthma/COPD: ATC duonebs, PRN albuterol, HOB, IS parameters. (7) Tobacco Abuse: Encouraged cessation, inpatient consultation per RT, NR if desired. (8) Myasthenia Gravis: s/p thymectomy secondary to severity and difficulty tolerating steroids with DM. (9) GERD: PPI. (10) DVT Prophylaxis: SCDs, lovenox. Code Visit Inpatient E&M: 98487 Init Hosp L3
[2017-11-23 21:27] LABS: M R Staph aureus DNA By PCR Negative (Negative); Probe Check PASS; Specimen Processing Control PASS; Staph aureus DNA By PCR POSITIVE (Negative)
[2017-11-23 21:46] LABS: Bedside Glucose 227 mg/dL (70-110)
[2017-11-23] MEDS: Metoprolol Tartrate 50 MG Tablet PO (22:28)
[2017-11-23] MEDS: Sucralfate 1 GM Tablet PO (22:28)
[2017-11-23] MEDS: Temazepam 15 MG Capsule PO (22:28)
[2017-11-23] MEDS: 0.9% Normal Saline 1,000 ML 125 ML IV (22:28)
[2017-11-23] MEDS: Gabapentin 300 MG Capsule PO (22:28)
[2017-11-23] MEDS: Insulin Lispro 100 UNIT/ML INSULN.PEN SC (22:29)
[2017-11-23] MEDS: Vancomycin IV 1,000 MG/200 ML BAG 200 MG IV (22:30)
[2017-11-23] MEDS: Montelukast 10 MG Tablet PO (22:34)
[2017-11-23 22:50] LABS: Ferritin 339 ng/mL (26-388); Iron 30 ug/dL (65-175); Iron Binding Capacity,Total 175 ug/dL (250-450); Magnesium 2.1 mg/dL (1.6-2.6); PERCENT IRON SATURATION 17.1 % (15.0-55.0)
[2017-11-23 23:07] LABS: Hemoglobin A1c 10.9 % (4.2-6.3)
--- NOTE | 2017-11-23 23:21 | PCM.RX.CS ---
Consult Pharmacy has been consulted to manage selected antiobiotic: Vancomycin Type of Consult: New start Suspected Infection: Skin/Soft tissue Labs: Sodium 136 mmol/L (136-145) 11/23/17 17:00 Potassium 3.7 mmol/L (3.5-5.1) 11/23/17 17:00 Chloride 99 mmol/L (98-107) 11/23/17 17:00 Carbon Dioxide 26.0 mmol/L (21.0-32.0) 11/23/17 17:00 Anion Gap 11 (5-15) 11/23/17 17:00 BUN 17 mg/dL (7-18) 11/23/17 17:00 Creatinine 1.31 mg/dL (0.70-1.30) H 11/23/17 17:00 Est GFR (MDRD) Af Amer 77 mL/min (>60) 11/23/17 17:00 Est GFR (MDRD) Non-Af 64 mL/min (>60) 11/23/17 17:00 BUN/Creatinine Ratio 13.0 RATIO (10-20) 11/23/17 17:00 Glucose 282 mg/dL (74-106) H 11/23/17 17:00 Estimated Creatinine Clearance: 58.91 Goal Trough: 10-15 mcg/mL Pharmacy Plan for Drug Dosing: Pharmacy Service will continue to monitor and adjust dosing as required. Medications Vancomycin HCl 1,250 mg/ (Sodium Chloride) 275 mls @ 167 mls/hr IV Q24H [place] Vancomycin HCl (Vancomycin) 1,000 mg in 200 mls @ 200 mls/hr IV X1 ONE Stop: 11/23/17 23:29 Last Admin: 11/23/17 22:30 Dose: 200 mls/hr Follow-Up Labs: Trough Vancomycin Labs to be done on [date and time ordered]: 11/26 @ 6510
[2017-11-23] MEDS: HYDROcodone Bitartrate/Apap 5/325 Tablet PO (23:41)
[2017-11-24] VITALS (9 sets, daily range): BP systolic 135–162; BP diastolic 73–111; PULSE 56–102; RESP 16–18; TEMP 36.6–37.2; O2SAT 97–100
[2017-11-24] MEDS: 0.9% NaCl Peripheral Flush Adult/Peds IV ×6 (02:42→22:51)
[2017-11-24] MEDS: Morphine 4 MG/ML Syringe IV ×6 (02:42→22:56)
[2017-11-24] MEDS: Acetaminophen 325 MG Tablet 650 MG PO (02:44)
[2017-11-24] MEDS: HYDROcodone Bitartrate/Apap 5/325 Tablet PO ×3 (05:47→18:03)
[2017-11-24] MEDS: Gabapentin 300 MG Capsule PO ×3 (05:47→22:49)
[2017-11-24 06:48] LABS: Absolute Lymphocyte Count 0.99 X10^3/ul (0.83-4.51); Absolute Neutrophil Count 5.5 X10^3/uL (2.0-7.7); Basophil# 0.04 X10^3/uL; Basophil% 0.5 % (0-1); Eosinophil# 0.25 X10^3/uL; Eosinophils% 3.2 % (0-5); Hematocrit 29.9 % (40-54); Lymphocyte # 0.99 X10^3/ul (4.0); Lymphocyte % 12.6 % (19-41); Mean Corp Hgb Conc 33.4 g/gl (32-36); Mean Corpuscular Hgb 29.5 pg (27.0-32.0); Mean Corpuscular Volume 88.2 fL (80-94); Monocyte# 0.95 X10^3/uL; Monocyte% 12.1 % (0-10); Neutrophil # 5.54 X10^3/uL (2.7-7.7); Neutrophil % 70.7 % (47-70); Platelet Count 306 K/mm3 (150-450); RBC Distribution Width CV 13.2 % (11.6-14.6); RBC Distribution Width SD 40.9 fl (35.1-43.9); Red Blood Count 3.39 M/mm3 (4.6-6.2); White Blood Count 7.8 K/mm3 (4.4-11.0)
[2017-11-24 06:54] LABS: POSITIVE COUNT NO; POSITIVE DIFFERENTIAL NO; POSITIVE MORPHOLOGY NO
[2017-11-24] MEDS: Sucralfate 1 GM Tablet PO ×4 (06:55→22:48)
[2017-11-24 07:06] LABS: Bedside Glucose 145 mg/dL (70-110)
[2017-11-24] MEDS: Ipratropium/Albuterol Sulfate 3 ML AMPUL.NEB INHALATION ×3 (07:06→19:07)
[2017-11-24 07:20] LABS: ALB/GLOB Ratio 0.3 RATIO (0.9-2.4); AST(SGOT) 18 U/L (15-37); Alanine Aminotransfer ALT/SGPT 77 U/L (16-61); Albumin, Serum 1.1 g/dL (3.2-5.0); Alkaline Phosphatase 322 U/L (45-117); Anion Gap 8 (5-15); BUN 16 mg/dL (7-18); BUN/Creat Ratio 14.7 RATIO (10-20); Calcium,Total 7.7 mg/dL (8.5-10.1); Chloride 104 mmol/L (98-107); Creatinine, Serum 1.09 mg/dL (0.70-1.30); EST Glomerular Filtration Rate 79 mL/min (>60); Est Glom Filt Rate - Afr Amer 95 mL/min (>60); Estimated Creatinine Clearance 78.36 ml/min; Glucose 148 mg/dL (74-106); Potassium 3.7 mmol/L (3.5-5.1); Protein, Total 5.1 g/dL (6.4-8.2); Sodium Level 140 mmol/L (136-145)
[2017-11-24] MEDS: 0.9% Normal Saline 1,000 ML 125 ML IV ×2 (08:26→16:50)
[2017-11-24] MEDS: Enoxaparin 30 MG/0.3 ML Syringe SC (08:27)
[2017-11-24] MEDS: Multivitamins,Ther W-Minerals Tablet 1 TABLET PO (08:27)
[2017-11-24] MEDS: Metoprolol Tartrate 50 MG Tablet PO ×2 (08:27→22:49)
[2017-11-24] MEDS: Sertraline 100 MG Tablet PO (08:27)
[2017-11-24] MEDS: Pantoprazole Sodium 40 MG Tablet PO (08:27)
[2017-11-24 09:03] LABS: Vitamin B12 699 pg/mL (211-911)
--- NOTE | 2017-11-24 09:14 | PCM.PROGNOTE ---
Subjective: Chief complaint: Follow-up after admission for acute right leg cellulitis with abscess, status post bedside incision and drainage. Patient seen and examined. No acute events overnight. He complains of mild discomfort at the upper part of the right leg. Denied fever chills overnight. Patient was admitted 3 days ago for the same problem, discharged on October, on Augmentin but swelling and erythema of the right leg started to come back since yesterday. His vital signs are stable, afebrile. - Physical Exam General: Alert, Oriented x3, Cooperative, No apparent distress HEENT: Atraumatic, PERRLA, EOMI, Normocephalic Oral: Moist Mucosa, No Gingival or Mucosal Lesions/ Ulcerations Neck: Supple, No JVD, Negative Carotid Bruits, Trachea Midline, Thyroid Normal Size and Texture Lungs: Clear to auscultation, Normal air movement, No rhonchi, No wheeze, No rales Cardiovascular: Regular rate, Regular Rhythm, Normal S1, Normal S2, PMI Normal Abdomen: Bowel Sounds Present, Soft, Non Tender, Non-Distended, No Hepato-splenomegaly Extremities: No clubbing, No cyanosis, No edema Skin: No rashes, - - Right leg: Open longitudinal wound on the upper third of the right whitt surrounded by erythema and swelling extending up to just below the right knee as well as almost down to the right ankle. Lymphatic: No Cervical, Supraclavicular, or Inguinal Adenopathy Neurological: Cranial nerves II-XII grossly intact, Motor Exam 5/5 strength throughout Psych/Mental Status: Normal Affect, Appropriate, Alert and oriented to time, place, person, mood and affect Vital Signs Temp Pulse Resp BP Pulse Ox 98.6 F 56 L 18 135/73 H 97 11/24/17 08:22 11/24/17 08:27 11/24/17 08:22 11/24/17 08:22 11/24/17 08:22 Oxygen Delivery Method Room Air Weight: 139 lb 12.369 oz Body Mass Index (BMI) 22.5 Intake and Output for Last 24 Hours 11/22/17 11/23/17 11/24/17 23:59 23:59 23:59 Intake Total 347 / 347 1171 / 1171 Output Total 600 / 600 Balance 347 / 347 571 / 571 Laboratory Tests Past 24 Hrs 11/24/17 11/24/17 11/24/17 06:00 06:00 06:00 WBC 7.8 RBC 3.39 L Hgb 10.0 L Hct 29.9 L MCV 88.2 MCH 29.5 MCHC 33.4 RDW 13.2 RDW Differential 40.9 Plt Count 306 MPV 11.0 Immature Gran % (Auto) 0.900 Neut % (Auto) 70.7 H Lymph % (Auto) 12.6 L [place] % (Auto) 12.1 H Eos % (Auto) 3.2 Baso % (Auto) 0.5 Absolute Neuts (auto) 5.5 Absolute Lymphs (auto) 0.99 Total Counted Not Reportable Sodium 140 Potassium 3.7 Chloride 104 Carbon Dioxide 28.0 Anion Gap 8 BUN 16 Creatinine 1.09 Estim Creat Clear Calc 78.36 Est GFR (MDRD) Af Amer 95 Est GFR (MDRD) Non-Af 79 BUN/Creatinine Ratio 14.7 Glucose 148 H Calcium 7.7 L Total Bilirubin 0.10 L AST 18 ALT 77 H Alkaline Phosphatase 322 H Total Protein 5.1 L Albumin 1.1 L Globulin 4.0 Albumin/Globulin Ratio 0.3 L Vitamin B12 699 POC Glucose 11/24/17 11/23/17 06:52 21:04 POC Glucose 145 H 227 H Medical Necessity - Tobacco Use Smoking Status: Current every day smoker - 1 ppd. Tobacco Use: Cigarettes Assessment/Plan All Active Problems Cellulitis of right leg (Acute) This is a 41 years old male patient presented to the emergency room because of worsening right leg swelling, erythema and pain in context of recent discharge from the hospital because of right leg cellulitis and he was found to have right leg cellulitis with abscess status post bedside incision and drainage #1 acute bacterial right leg cellulitis/abscess: Status post bedside incision and drainage that was done by ER physician yesterday. He is on IV Unasyn and vancomycin. Patient was on Augmentin after discharge from the hospital on October,. Patient stated that when he was discharged, swelling and erythema of the artery improved but since yesterday, has been getting worse. His vital signs are stable, afebrile. No evidence of sepsis or severe sepsis. He has no leukocytosis. Blood, urine and wound cultures are pending. Wound care nurse consulted. Plan to continue same treatment. #2 acute kidney injury: Probably secondary to acute infection. Patient has been on IV fluids, creatinine came down to normal. Admission creatinine was 1.31. It came down to 1.01 today, improved. #3 chronically elevated LFT: This is chronic, unclear etiology. Patient denied any abdominal pain, denied right upper quadrant abdominal pain and it has been going on for couple of years. He denied drinking alcohol. No past history of hepatitis. #4 uncontrolled type 1 diabetes mellitus: Hemoglobin A1c is 10.9. He is on Lantus insulin nightly and sliding scale. Plan to monitor and adjust insulin dosage accordingly. #5 chronic anemia: It is normocytic anemia likely because of anemia of chronic disease. Today's hemoglobin is 10 compensated, stable. #6 hypertension: Blood pressure stable, continue metoprolol, IV hydralazine as needed. #7 asthma/COPD: Pulse ox is maintained on room air. Continue DuoNeb every 6 hours, albuterol as needed. #8 myasthenia gravis: Status post thymectomy, on Mestinon. #9 GERD: Continue Protonix. #10 DVT prophylaxis: Subcu Lovenox. This note was generated with [employer] dictation software. It may contain incorrect words, spelling, and punctuation that were not noted in checking the note before signing. Code Visit Inpatient E&M: 86422 Subs Hosp L2
--- NOTE | 2017-11-24 11:00 | CASEMGMT ---
ERICH MAURICIO Face to Face with patient for initial transition planning/care coordination assessment. ERICH MAURICIO introduced self and role at [facility]. Patient lying in bed, alert and oriented. Patient willing to participate in assessment and is able to answer all questions appropriately. Care providers, pharmacy, and demographics verified. Patient wishes to discharge home, denies need for home health at this time. ERICH MAURICIO discussed that CM will continue to monitor patient for need for HHC based on coarse of treatment. Patient states he has no further needs or concerns at this time. CM to follow for discharge planning needs that may arise. Patient was recently discharged on 11/21/17 for Cellulitis of right leg with wound care instructions and oral antibiotic. Follow-up appt was made for 11/30/[address] Graham PCP. Patient denied need for HHC. Disposition Plan: Patient to discharge home with follow-up plans in place. Will monitor for need for HHC based on coarse of treatment.
[2017-11-24] MEDS: Insulin Lispro 100 UNIT/ML INSULN.PEN SC ×2 (11:09→22:50)
--- NOTE | 2017-11-24 11:17 | NURSING ---
dressing being changed at this time by karuna rankin RN
--- NOTE | 2017-11-24 11:20 | NURSING ---
wound photo: right lower leg
[2017-11-24 11:21] LABS: Bedside Glucose 158 mg/dL (70-110)
--- NOTE | 2017-11-24 15:01 | NURSING ---
pt requested bgt be taken at this time- instead of later at 1630- same completed.
[2017-11-24 15:06] LABS: Bedside Glucose 139 mg/dL (70-110)
[2017-11-24] MEDS: Ondansetron 4 MG/2 ML Vial IV (19:12)
--- NOTE | 2017-11-24 19:54 | NURSING ---
pt was very happy at start of shift and very talkative. patient became very agitated and sad- tearful at times today. States he has a lot of family issues on top of being here in hospital. patient requesting prn morphine and norco every time due- but states that he only was taking motrin at home. Patient very agitated in room- at shift change and states that he cannot tolerate my noisy neighbor all night- notified that we will look into getting patient another room if he finds it to be intolerable. Patient states he will let us know if he needs something.
[2017-11-24] MEDS: Montelukast 10 MG Tablet PO (22:49)
[2017-11-24] MEDS: Temazepam 15 MG Capsule PO (22:58)
[2017-11-24 23:16] LABS: Bedside Glucose 337 mg/dL (70-110)
[2017-11-25] VITALS (10 sets, daily range): BP systolic 133–159; BP diastolic 86–97; PULSE 80–104; RESP 16–18; TEMP 36.8–37.1; O2SAT 92–98
[2017-11-25] MEDS: HYDROcodone Bitartrate/Apap 5/325 Tablet PO ×3 (00:52→19:22)
[2017-11-25] MEDS: Morphine 4 MG/ML Syringe IV ×5 (03:47→22:25)
[2017-11-25] MEDS: Ondansetron 4 MG/2 ML Vial IV ×2 (03:47→16:09)
[2017-11-25] MEDS: 0.9% Normal Saline 1,000 ML 125 ML IV ×2 (03:48→13:03)
--- NOTE | 2017-11-25 03:54 | NURSING ---
pt awake had diarrhea asked for items to clean up and get bed linen changed. C/o pain when I came back into the room he was throwing up in the trash can. States Took a sip of water and then had a cough then started to throw up. Meds given.
[2017-11-25] MEDS: 0.9% NaCl Peripheral Flush Adult/Peds IV ×2 (04:34→22:25)
[2017-11-25] MEDS: proMETHazine 25 MG/ML Syringe 12.5 MG IV ×2 (04:34→17:02)
[2017-11-25] MEDS: Insulin Lispro 100 UNIT/ML INSULN.PEN SC ×4 (06:10→22:21)
[2017-11-25 06:31] LABS: Bedside Glucose 185 mg/dL (70-110)
[2017-11-25] MEDS: Ipratropium/Albuterol Sulfate 3 ML AMPUL.NEB INHALATION ×3 (07:41→19:05)
[2017-11-25] MEDS: Sucralfate 1 GM Tablet PO ×4 (08:05→22:21)
[2017-11-25] MEDS: Pantoprazole Sodium 40 MG Tablet PO (08:05)
[2017-11-25] MEDS: Metoprolol Tartrate 50 MG Tablet PO ×2 (08:06→22:21)
[2017-11-25] MEDS: Multivitamins,Ther W-Minerals Tablet 1 TABLET PO (08:06)
[2017-11-25] MEDS: Sertraline 100 MG Tablet PO (08:06)
[2017-11-25] MEDS: Gabapentin 300 MG Capsule PO ×3 (08:07→22:21)
[2017-11-25] MEDS: Enoxaparin 30 MG/0.3 ML Syringe SC (08:07)
--- NOTE | 2017-11-25 08:19 | PCM.PROGNOTE ---
Subjective: Chief complaint: Follow-up after admission for acute right leg cellulitis with abscess, status post bedside incision and drainage. Patient seen and examined. No acute events overnight. Today, he denies any significant complaints. Erythema and swelling of the right leg is getting better. His vital signs are stable, afebrile. - Physical Exam General: Alert, Oriented x3, Cooperative, No apparent distress HEENT: Atraumatic, PERRLA, EOMI, Normocephalic Oral: Moist Mucosa, No Gingival or Mucosal Lesions/ Ulcerations Neck: Supple, No JVD, Negative Carotid Bruits, Trachea Midline, Thyroid Normal Size and Texture Lungs: Clear to auscultation, Normal air movement, No rhonchi, No wheeze, No rales Cardiovascular: Regular rate, Regular Rhythm, Normal S1, Normal S2, No murmurs Abdomen: Bowel Sounds Present, Soft, Non Tender, Non-Distended, No Hepato-splenomegaly Extremities: No clubbing, No cyanosis, No edema Skin: No rashes, Ulcer/ Wound, - - Right leg: Swelling and erythema improved, still there is some erythema around the site of the incision and drainage. Lymphatic: No Cervical, Supraclavicular, or Inguinal Adenopathy Neurological: Cranial nerves II-XII grossly intact, Neuro grossly intact Psych/Mental Status: Normal Affect, Appropriate, Alert and oriented to time, place, person, mood and affect Vital Signs Temp Pulse Resp BP Pulse Ox 98.2 F 92 18 159/92 H 98 11/25/17 08:01 11/25/17 08:06 11/25/17 08:01 11/25/17 08:01 11/25/17 08:01 Oxygen Delivery Method Room Air Weight: 139 lb 12.369 oz Body Mass Index (BMI) 22.5 Intake and Output for Last 24 Hours 11/23/17 11/24/17 11/25/17 23:59 23:59 23:59 Intake Total 347 / 347 3815 / 3815 1977 Output Total 600 / 600 200 / 200 Balance 347 / 347 3215 / 3215 1778 / 1778 Laboratory Tests Past 24 Hrs 11/24/17 06:00 Vitamin B12 699 POC Glucose 11/25/17 11/24/17 11/24/17 06:09 22:48 14:54 POC Glucose 185 H 337 H 139 H 11/24/17 11:02 POC Glucose 158 H Medical Necessity - Tobacco Use Smoking Status: Current every day smoker - 1 ppd. Tobacco Use: Cigarettes Assessment/Plan All Active Problems Cellulitis of right leg (Acute) This is a 41 years old male patient presented to the emergency room because of worsening right leg swelling, erythema and pain in context of recent discharge from the hospital because of right leg cellulitis and he was found to have right leg cellulitis with abscess status post bedside incision and drainage #1 acute bacterial right leg cellulitis/abscess: Status post bedside incision and drainage that was done by ER physician on admission. He is on IV Unasyn and vancomycin. His vital signs are stable, afebrile. Wound culture revealed MSSA. Local erythema and swelling of the right leg is improving. Urine culture showed no growth. Blood cultures pending. Plan: DC IV vancomycin, continue IV Unasyn. #2 acute kidney injury: Probably secondary to acute infection. Patient has been on IV fluids, creatinine came down to normal. Admission creatinine was 1.31. It came down to 1.01 yesterday, improved. #3 chronically elevated LFT: This is chronic, unclear etiology. Patient denied any abdominal pain, denied right upper quadrant abdominal pain and it has been going on for couple of years. He denied drinking alcohol. No past history of hepatitis. #4 uncontrolled type 1 diabetes mellitus: Blood sugar has been under fair control. Hemoglobin A1c is 10.9. He is on Lantus insulin nightly and sliding scale. #5 chronic anemia: It is normocytic anemia likely because of anemia of chronic disease. Yesterday's hemoglobin is 10 compensated, stable. #6 hypertension: Blood pressure stable, continue metoprolol, IV hydralazine as needed. #7 asthma/COPD: Pulse ox is maintained on room air. Continue DuoNeb every 6 hours, albuterol as needed. #8 myasthenia gravis: Status post thymectomy, on Mestinon. #9 GERD: Continue Protonix. #10 DVT prophylaxis: Subcu Lovenox. This note was generated with [employer] dictation software. It may contain incorrect words, spelling, and punctuation that were not noted in checking the note before signing. Code Visit Inpatient E&M: 43721 Subs Hosp L2
[2017-11-25 11:26] LABS: Bedside Glucose 239 mg/dL (70-110)
--- NOTE | 2017-11-25 11:44 | CASEMGMT ---
RN CM Note. Pt continues on IV Unasyn. If dc plan is for po antibiotics, pt can return home. IF IV antibiotics are recommended on dc, will need to stay to have set up on Monday by CM. Cari BURGERN RN ACM
[2017-11-25 16:16] LABS: Bedside Glucose 331 mg/dL (70-110)
[2017-11-25] MEDS: Montelukast 10 MG Tablet PO (22:21)
[2017-11-25] MEDS: Temazepam 15 MG Capsule PO (22:28)
[2017-11-25 23:10] LABS: Bedside Glucose 393 mg/dL (70-110)
[2017-11-26 02:00] VITALS: BP 132/84; PULSE 81; RESP 14; TEMP 37.2; O2SAT 95
[2017-11-26] MEDS: 0.9% NaCl Peripheral Flush Adult/Peds IV (03:32)
[2017-11-26] MEDS: Morphine 4 MG/ML Syringe IV (03:32)
[2017-11-26] MEDS: HYDROcodone Bitartrate/Apap 5/325 Tablet PO (06:36)
[2017-11-26] MEDS: Sucralfate 1 GM Tablet PO ×2 (06:36→10:46)
[2017-11-26] MEDS: Gabapentin 300 MG Capsule PO (06:36)
[2017-11-26] MEDS: Insulin Lispro 100 UNIT/ML INSULN.PEN SC (06:40)
[2017-11-26 06:51] LABS: Bedside Glucose 250 mg/dL (70-110)
[2017-11-26 06:52] VITALS: PULSE 89; RESP 18; O2SAT 96
[2017-11-26] MEDS: Ipratropium/Albuterol Sulfate 3 ML AMPUL.NEB INHALATION (06:52)
[2017-11-26 07:37] VITALS: BP 144/89; PULSE 90; RESP 16; TEMP 36.9; O2SAT 93
[2017-11-26] MEDS: Ondansetron 4 MG/2 ML Vial IV (07:44)
[2017-11-26] MEDS: Multivitamins,Ther W-Minerals Tablet 1 TABLET PO (07:45)
--- NOTE | 2017-11-26 09:03 | PCM.DC ---
You will use the following diet at home:: Calorie/Carbohydrate Controlled (specify 1200, 1400, etc) - 1800 ana maria, Cardiac Your food should be the consistency of: Regular Discharge Activity: Return to Normal Activity, May not drive while taking narcotic pain medications. Weight Bearing Status: Weight bearing as tolerated Call your doctor if your incision/area has: Continuous Slow Oozing, Increased Pain/ Swelling, Increased Redness, Foul Smelling Discharge, Swelling at the incision site Call your doctor if you observe: Fever of 101 or Higher, Shortness of breath, Dizziness, Fainting spells, Chest pain, Increased palpitations (irregular heartbeat), Uncontrolled pain Additional Instructions: Follow-up with the wound care center this coming week. Allergies/Adverse Reactions: Allergies lisinopril Allergy (Verified 11/23/17 15:30) Angioedema losartan Allergy (Verified 11/23/17 15:30) Angioedema metoclopramide HCl [From Reglan] Allergy (Verified 11/23/17 15:30) Hives Medications to take at Discharge Insulin Aspart [Novolog Flexpen] 0 units SC TIDCM 12/28/12 Metoprolol Tartrate [Lopressor (beta mariama)] 50 mg PO BID 12/28/12 Omeprazole [Prilosec] 40 mg PO DAILY 12/28/12 Albuterol Inhaler [Ventolin Hfa] 2 puff INHALATION Q4H PRN PRN 08/19/14 Gabapentin [Neurontin] 300 mg PO TID 08/19/14 Budesonide/Formoterol 160/4.5 [Symbicort 160/4.5 Mcg Inhaler (SP)] 2 puff INHALATION BID 02/23/16 Montelukast Sodium [Singulair] 10 mg PO QHS 02/23/16 Hydrochlorothiazide 25 mg PO DAILY 06/21/16 Multivitamins,Ther W-Minerals [Multivitamin With Minerals] 1 tablet PO DAILY 06/21/16 Sucralfate 1 gm PO 4X/DAY 06/21/16 Pyridostigmine [place] [Mestinon] 60 mg PO TID PRN PRN 12/03/16 Sertraline HCl [Zoloft] 100 mg PO DAILY 02/07/17 Furosemide [Lasix] 20 mg PO DAILY 11/23/17 Insulin Glargine,Hum.rec.anlog [Lantus] 14 unit SQ QHS 11/23/17 Levofloxacin [Levaquin] 750 mg PO DAILY #7 tab 11/26/17 Mupirocin [Bactroban] 1 applic TOPICAL TID #1 tube 11/26/17 traMADol [Ultram] 50 mg PO Q12H PRN PRN #10 tab 11/26/17 The following prescriptions were given: traMADol [Ultram] 50 mg PO Q12H PRN PRN #10 tab PRN Reason: Right leg pain Levofloxacin [Levaquin] 750 mg PO DAILY #7 tab Mupirocin [Bactroban] 1 applic TOPICAL TID #1 tube Primary Care Physician: Jose Graham MD [Primary Care Provider] - Please follow up with your Primary Care Physician in: 1 week. Test Results: Test results from this visit will be discussed in further detail at your follow-up appointment, if applicable.
[2017-11-26 10:44] VITALS: BP 144/89; PULSE 90
[2017-11-26] MEDS: Enoxaparin 30 MG/0.3 ML Syringe SC (10:44)
[2017-11-26] MEDS: Metoprolol Tartrate 50 MG Tablet PO (10:44)
[2017-11-26] MEDS: Sertraline 100 MG Tablet PO (10:45)
[2017-11-26] MEDS: Pantoprazole Sodium 40 MG Tablet PO (10:45)
[2017-11-26 11:10] LABS: Bedside Glucose 141 mg/dL (70-110)
[2017-11-26 12:18] VITALS: BP 158/80; PULSE 96; RESP 18; TEMP 37.1; O2SAT 96
--- NOTE | 2017-11-26 14:56 | PCM.DC.SUM ---
Discharge Date and Diagnosis Date of Admission: 11/23/17 Date of Discharge: 11/26/17 - Primary Discharge Diagnosis #1 acute MSSA right leg cellulitis/abscess status post bedside incision and drainage. #2 acute kidney injury. #3 uncontrolled type 1 diabetes mellitus. #4 chronically elevated LFTs. - Secondary Discharge Diagnosis Chronic Problems IBS (irritable bowel syndrome) (Chronic) HTN (hypertension) (Chronic) Diabetes type I (Chronic) Myasthenia gravis (Chronic) Hospital Course and Treatment Imaging Results: Clinical Impression(s) from Imaging Studies Tibia/Fibula X-Ray 11/23/17 16:34 IMPRESSION: Normal x-ray examination of the tibia and fibula. Electronically Signed: Neisha Pride MD at 18:09 EDT Tel , Service support , Chest X-Ray 11/23/17 16:45 IMPRESSION: 1. Trace left pleural effusion versus chronic fibrosis. 2. Minimal fibrotic changes in the lung bases. Electronically Signed: Neisha Pride MD at 18:08 EDT Tel , Service support , Consultations 11/23/17 21:44 Consult: Onc/Wound/admeasurer Routine Comment: Operations: None Procedures: None Summary of Care Provided: Patient was seen and examined on the day of discharge and appeared to be stable to be discharged home. Swelling and erythema of the right leg significantly improved. He has been afebrile since admission. His vital signs are stable. - Physical Exam General: Alert, Oriented x3, Cooperative, No apparent distress. HEENT: Atraumatic, PERRLA, EOMI. Neck: Supple, No JVD, Negative Carotid Bruits, Trachea Midline, Thyroid Normal. Lungs: Clear to auscultation, Normal air movement, No rhonchi, No wheeze, No rales. Cardiovascular: Regular rate, Regular Rhythm, Normal S1, Normal S2, PMI Normal. Abdomen: Bowel Sounds Present, Soft, Non Tender, Non-Distended, No Hepato-splenomegaly. Extremities: No clubbing, No cyanosis, No edema Skin: No rashes, No breakdown Neurological: Neuro grossly intact Vital Signs are stable. Hospital course: This is a 41 years old male patient presented to the emergency room because of worsening right leg swelling, erythema and pain in context of recent discharge from the hospital because of right leg cellulitis and he was found to have right leg cellulitis with abscess status post bedside incision and drainage #1 acute MSSA right leg cellulitis/abscess: Status post bedside incision and drainage that was done by ER physician on admission. Patient was treated with IV Unasyn and vancomycin. There was no evidence of sepsis or severe sepsis. Patient remained afebrile throughout admission. Staph aureus screen by PCR was positive but MRSA screen was negative. With IV antibiotic therapy, local erythema and swelling of the right leg improved. Blood and urine culture showed no growth. Wound culture revealed MSSA. Patient discharged home in a stable medical condition, discharged on Levaquin daily for 7 days, discharged on Bactroban topically 3 times daily for 7 days, recommended to follow-up with PCP in 1 week and follow-up with the wound care center in 3-5 days. #2 acute kidney injury: Probably secondary to acute infection. Treated with IV fluids and his kidney function returned back to normal. #3 chronically elevated LFT: This is chronic, unclear etiology. Patient denied any abdominal pain, denied right upper quadrant abdominal pain and it has been going on for couple of years. Recommend follow-up with PCP. #4 uncontrolled type 1 diabetes mellitus: Blood sugar has been fluctuating throughout admission. It goes from 140s up to 300s. Hemoglobin A1c is 10.9. Continued on Lantus insulin nightly and sliding scale, recommended to check blood sugar at least 4 times a day, follow-up with PCP. Patient discharged home in a stable medical condition, discharged on Levaquin for 7 days, and topical Bactroban, instructed and highly recommended to follow-up with the wound care center within 2-5 days, follow-up with PCP in 1 week. This note was generated with [employer] dictation software. It may contain incorrect words, spelling, and punctuation that were not noted in checking the note before signing. Discharge Activity: Return to Normal Activity, May not drive while taking narcotic pain medications. Weight Bearing Status: Weight bearing as tolerated Call your doctor if your incision/area has: Continuous Slow Oozing, Increased Pain/ Swelling, Increased Redness, Foul Smelling Discharge, Swelling at the incision site Call your doctor if you observe: Fever of 101 or Higher, Shortness of breath, Dizziness, Fainting spells, Chest pain, Increased palpitations (irregular heartbeat), Uncontrolled pain Home Medications: Medications to take at Discharge Insulin Aspart [Novolog Flexpen] 0 units SC TIDCM 12/28/12 Metoprolol Tartrate [Lopressor (beta mariama)] 50 mg PO BID 12/28/12 Omeprazole [Prilosec] 40 mg PO DAILY 12/28/12 Albuterol Inhaler [Ventolin Hfa] 2 puff INHALATION Q4H PRN PRN 08/19/14 Gabapentin [Neurontin] 300 mg PO TID 08/19/14 Budesonide/Formoterol 160/4.5 [Symbicort 160/4.5 Mcg Inhaler (SP)] 2 puff INHALATION BID 02/23/16 Montelukast Sodium [Singulair] 10 mg PO QHS 02/23/16 Hydrochlorothiazide 25 mg PO DAILY 06/21/16 Multivitamins,Ther W-Minerals [Multivitamin With Minerals] 1 tablet PO DAILY 06/21/16 Sucralfate 1 gm PO 4X/DAY 06/21/16 Pyridostigmine Grant [Mestinon] 60 mg PO TID PRN PRN 12/03/16 Sertraline HCl [Zoloft] 100 mg PO DAILY 02/07/17 Furosemide [Lasix] 20 mg PO DAILY 11/23/17 Insulin Glargine,Hum.rec.anlog [Lantus] 14 unit SQ QHS 11/23/17 Levofloxacin [Levaquin] 750 mg PO DAILY #7 tab 11/26/17 Mupirocin [Bactroban] 1 applic TOPICAL TID #1 tube 11/26/17 traMADol [Ultram] 50 mg PO Q12H PRN PRN #10 tab 11/26/17 Following Prescrptions Were Given to Patient: traMADol [Ultram] 50 mg PO Q12H PRN PRN #10 tab PRN Reason: Right leg pain Levofloxacin [Levaquin] 750 mg PO DAILY #7 tab Mupirocin [Bactroban] 1 applic TOPICAL TID #1 tube Primary Care Physician: Jose Graham MD [Primary Care Provider] - Please follow up with your Primary Care Physician in: 1 week. Disposition: Home Minutes spent on discharge:: 32 Patient Condition:: Stable Medical Necessity - Tobacco Use Smoking Status: Current every day smoker - 1 ppd. Tobacco Use: Cigarettes Meaningful Use Info Meaningful Use Diagnoses (Choose all that apply): None applicable Code Visit Inpatient E&M: 63572 Disch Hosp
--- NOTE | 2017-11-26 15:03 | DS.PCM_ITS ---
Discharge Date and Diagnosis Date of Admission: 11/23/17 Date of Discharge: 11/26/17 - Primary Discharge Diagnosis #1 acute MSSA right leg cellulitis/abscess status post bedside incision and drainage. #2 acute kidney injury. #3 uncontrolled type 1 diabetes mellitus. #4 chronically elevated LFTs. - Secondary Discharge Diagnosis Chronic Problems IBS (irritable bowel syndrome) (Chronic) HTN (hypertension) (Chronic) Diabetes type I (Chronic) Myasthenia gravis (Chronic) Hospital Course and Treatment Imaging Results: Clinical Impression(s) from Imaging Studies Tibia/Fibula X-Ray 11/23/17 16:34 IMPRESSION: Normal x-ray examination of the tibia and fibula. Electronically Signed: Neisha Pride MD at 18:09 EDT Tel , Service support , Chest X-Ray 11/23/17 16:45 IMPRESSION: 1. Trace left pleural effusion versus chronic fibrosis. 2. Minimal fibrotic changes in the lung bases. Electronically Signed: Neisha Pride MD at 18:08 EDT Tel , Service support , Consultations 11/23/17 21:44 Consult: Onc/Wound/data modeling architect Routine Comment: Operations: None Procedures: None Summary of Care Provided: Patient was seen and examined on the day of discharge and appeared to be stable to be discharged home. Swelling and erythema of the right leg significantly improved. He has been afebrile since admission. His vital signs are stable. - Physical Exam General: Alert, Oriented x3, Cooperative, No apparent distress. HEENT: Atraumatic, PERRLA, EOMI. Neck: Supple, No JVD, Negative Carotid Bruits, Trachea Midline, Thyroid Normal. Lungs: Clear to auscultation, Normal air movement, No rhonchi, No wheeze, No rales. Cardiovascular: Regular rate, Regular Rhythm, Normal S1, Normal S2, PMI Normal. Abdomen: Bowel Sounds Present, Soft, Non Tender, Non-Distended, No Hepato- splenomegaly. Extremities: No clubbing, No cyanosis, No edema Skin: No rashes, No breakdown Neurological: Neuro grossly intact Vital Signs are stable. Hospital course: This is a 41 years old male patient presented to the emergency room because of worsening right leg swelling, erythema and pain in context of recent discharge from the hospital because of right leg cellulitis and he was found to have right leg cellulitis with abscess status post bedside incision and drainage #1 acute MSSA right leg cellulitis/abscess: Status post bedside incision and drainage that was done by ER physician on admission. Patient was treated with IV Unasyn and vancomycin. There was no evidence of sepsis or severe sepsis. Patient remained afebrile throughout admission. Staph aureus screen by PCR was positive but MRSA screen was negative. With IV antibiotic therapy, local erythema and swelling of the right leg improved. Blood and urine culture showed no growth. Wound culture revealed MSSA. Patient discharged home in a stable medical condition, discharged on Levaquin daily for 7 days, discharged on Bactroban topically 3 times daily for 7 days, recommended to follow-up with PCP in 1 week and follow-up with the wound care center in 3-5 days. #2 acute kidney injury: Probably secondary to acute infection. Treated with IV fluids and his kidney function returned back to normal. #3 chronically elevated LFT: This is chronic, unclear etiology. Patient denied any abdominal pain, denied right upper quadrant abdominal pain and it has been going on for couple of years. Recommend follow-up with PCP. #4 uncontrolled type 1 diabetes mellitus: Blood sugar has been fluctuating throughout admission. It goes from 140s up to 300s. Hemoglobin A1c is 10.9. Continued on Lantus insulin nightly and sliding scale, recommended to check blood sugar at least 4 times a day, follow-up with PCP. Patient discharged home in a stable medical condition, discharged on Levaquin for 7 days, and topical Bactroban, instructed and highly recommended to follow- up with the wound care center within 2-5 days, follow-up with PCP in 1 week. This note was generated with [employer] dictation software. It may contain incorrect words, spelling, and punctuation that were not noted in checking the note before signing. Discharge Activity: Return to Normal Activity, May not drive while taking narcotic pain medications. Weight Bearing Status: Weight bearing as tolerated Call your doctor if your incision/area has: Continuous Slow Oozing, Increased Pain/ Swelling, Increased Redness, Foul Smelling Discharge, Swelling at the incision site Call your doctor if you observe: Fever of 101 or Higher, Shortness of breath, Dizziness, Fainting spells, Chest pain, Increased palpitations (irregular heartbeat), Uncontrolled pain Home Medications: Medications to take at Discharge Insulin Aspart [Novolog Flexpen] 0 units SC TIDCM 12/28/12 Metoprolol Tartrate [Lopressor (beta mariama)] 50 mg PO BID 12/28/12 Omeprazole [Prilosec] 40 mg PO DAILY 12/28/12 Albuterol Inhaler [Ventolin Hfa] 2 puff INHALATION Q4H PRN PRN 08/19/14 Gabapentin [Neurontin] 300 mg PO TID 08/19/14 Budesonide/Formoterol 160/4.5 [Symbicort 160/4.5 Mcg Inhaler (SP)] 2 puff INHALATION BID 02/23/16 Montelukast Sodium [Singulair] 10 mg PO QHS 02/23/16 Hydrochlorothiazide 25 mg PO DAILY 06/21/16 Multivitamins,Ther W-Minerals [Multivitamin With Minerals] 1 tablet PO DAILY Sucralfate 1 gm PO 4X/DAY 06/21/16 Pyridostigmine Gordo [Mestinon] 60 mg PO TID PRN PRN 12/03/16 Sertraline HCl [Zoloft] 100 mg PO DAILY 02/07/17 Furosemide [Lasix] 20 mg PO DAILY 11/23/17 Insulin Glargine,Hum.rec.anlog [Lantus] 14 unit SQ QHS 11/23/17 Levofloxacin [Levaquin] 750 mg PO DAILY #7 tab 11/26/17 Mupirocin [Bactroban] 1 applic TOPICAL TID #1 tube 11/26/17 traMADol [Ultram] 50 mg PO Q12H PRN PRN #10 tab 11/26/17 Following Prescrptions Were Given to Patient: traMADol [Ultram] 50 mg PO Q12H PRN PRN #10 tab PRN Reason: Right leg pain Levofloxacin [Levaquin] 750 mg PO DAILY #7 tab Mupirocin [Bactroban] 1 applic TOPICAL TID #1 tube Primary Care Physician: Jose Graham MD [Primary Care Provider] - Please follow up with your Primary Care Physician in: 1 week. Disposition: Home Minutes spent on discharge:: 32 Patient Condition:: Stable Medical Necessity - Tobacco Use Smoking Status: Current every day smoker - 1 ppd. Tobacco Use: Cigarettes Meaningful Use Info Meaningful Use Diagnoses (Choose all that apply): None applicable Code Visit Inpatient E&M: 74054 Disch Hosp
--- NOTE | 2017-11-28 16:07 | CASEMGMT ---
ERICH MAURICIO Discharge Follow-up Phone Call: MARILYN: 13 Strata: 4 Call Date: 11/28/17 Discharge Date: 11/29/17 Time of Call: 1610 Duration: 3 min Admitting Diagnosis: RLE cellulitis, Abscess ERICH MAURICIO completed follow-up phone call after recent hospitalization. Patient states he is doing well and had no questions regarding discharge instructions. 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 Patient states she has a follow-up appt with PCP on .
== END 2017-11-26 12:20 | disposition home or self-care (01) | DRG 603 ==
LOC: ED 16:46 → MS3 20:59
PROVIDERS: Admitting Provider Family Medicine; Emergency Provider Emergency Medicine; Family Provider Family Medicine; PCP Family Medicine; Visit Provider Hospitalist
DX: L03.115 Cellulitis of right lower limb (principal); N17.9 Acute kidney failure, unspecified; L02.415 Cutaneous abscess of right lower limb; B95.61 Methicillin susceptible Staphylococcus aureus infection as the cause of diseases classified elsewhere; E10.65 Type 1 diabetes mellitus with hyperglycemia; R79.89 Other specified abnormal findings of blood chemistry; K58.9 Irritable bowel syndrome, unspecified; I10 Essential (primary) hypertension; G70.00 Myasthenia gravis without (acute) exacerbation; Z79.4 Long term (current) use of insulin; J44.9 Chronic obstructive pulmonary disease, unspecified; F17.210 Nicotine dependence, cigarettes, uncomplicated; D63.8 Anemia in other chronic diseases classified elsewhere
CPT/HCPCS: 10060; 36415; 71045; 73590; 80053; 81001; 82607; 82728; 82746; 82962; 83036; 83540; 83550; 83605; 83735; 85025; 85610; 85730; 87040; 87070; 87077; 87086; 87186; 87205; 87640; 94640; 97802; 99284; 99406; J7030; J7050; J7120; A4216; J0295; J2405

== ENCOUNTER → 2018-04-17 15:34 | Outpatient (CLI) | payer MEDICARE, SELFPAY ==
[2017-11-23 21:57] VITALS: BMI 22.5
[2018-04-17 17:42] LABS: Protein, Urine (Random) 875.6 mg/dL (<11.9); Protein:Creat Ratio 14841 mg/g CRE (0-200)
--- OUTSIDE RECORDS SUMMARY | 2018-06-19 21:42 | XMS RPT_ITS ---
:1975 Author Organization OHIP Support Name Relationship Address Phone LISSET [facility] Unavailable [address] + [place] [address] D Unavailable Unavailable Unavailable BUSCHUR, LISSET Unavailable [address] + [place] [address] D Unavailable Unavailable Unavailable BUSCHUR, LISSET Unavailable [address] + [place] [address] D Unavailable Unavailable Unavailable BUSCHUR, LISSET Unavailable [address] + [place] [address] D Unavailable Unavailable Unavailable BUSCHUR, LISSET Unavailable [address] + [place] [address] D Unavailable Unavailable Unavailable BUSCHUR, LISSET Unavailable [address] + [place] [address] D Unavailable Unavailable Unavailable BUSCHUR, LISSET Unavailable [address] + [place] [address] D Unavailable Unavailable Unavailable BUSCHUR, LISSET Unavailable [address] + [place] [address] D Unavailable Unavailable Unavailable BUSCHUR, LISSET Unavailable [address] + [place] [address] D Unavailable Unavailable Unavailable BUSCHUR, LISSET Unavailable [address] + [place] [address] D Unavailable Unavailable Unavailable BUSCHUR, LISSET Unavailable [address] + [place] [address] D Unavailable Unavailable Unavailable BUSCHUR, LISSET Unavailable [address] + [place] [address] D Unavailable Unavailable Unavailable BUSCHUR, LISSET Unavailable [address] + [place] [address] D Unavailable Unavailable Unavailable Care Team Providers Name Role Phone CASSIE GRAHAM) Referring Unavailable CASSIE GRAHAM) Referring Unavailable CASSIE GRAHAM) Referring Unavailable CASSIE GRAHAM) Referring Unavailable CASSIE GRAHAM) Attending Unavailable CASSIE GRAHAM) Attending Unavailable PODLOGARBERE (ALFREDO) Attending Unavailable CASSIE GRAHAM) Referring Unavailable CASSIE GRAHAM) Referring Unavailable RAYO FAM Attending Unavailable PODLOGAR, BERE (ALFREDO) Attending Unavailable CASSIE GRAHAM) Referring Unavailable TESTRAKECARI Referring Unavailable TESTRAKECARI Attending Unavailable ADRIEN PARADA Attending Unavailable CASSIE GRAHAM) Referring Unavailable KALININJR Benito (PICKER / PACKER) Referring Unavailable TESTRAKECARI Referring Unavailable ADRIEN PARADA Referring Unavailable CASSIE GRAHAM) Referring Unavailable ADRIEN PARADA Referring Unavailable JANIE GAITAN Attending Unavailable CARI HDZ Referring Unavailable LEE MCNAMARA Attending Unavailable CASSIE GRAHAM) Attending Unavailable CASSIE GRAHAM) Referring Unavailable CASSIE GRAHAM) Referring Unavailable KALININAJR (PICKER / PACKER) Referring Unavailable CASSIE GRAHAM) Referring Unavailable VESNA HARRISON (ASSOCIATE DIRECTOR) Attending Unavailable JOSHUA CAMPBELL Attending Unavailable LEE MCNAMARA Referring Unavailable TESTRACARI ARENAS Attending Unavailable TESTRAKECARI Referring Unavailable Nina Vang Attending Unavailable Bursley, Jose Primary Care Unavailable Nina Vang Attending Unavailable Taj Nina Referring Unavailable Bursley, Jose Primary Care Unavailable Bursley, Jose Primary Care Unavailable Juanita Matthews Attending Unavailable Bursley, Jose Primary Care Unavailable Alexis, Inocencio Admitting Unavailable Van Ga Attending Unavailable Alexis, Inocencio Admitting Unavailable Alexis, Inocencio Attending Unavailable Bursley, Jose Primary Care Unavailable Alexis, Inocencio Consulting Unavailable Alexis, Inocencio Admitting Unavailable Van Ga Attending Unavailable Bursley, Jose Primary Care Unavailable Kittoe, Van Consulting Unavailable Alexis, Inocencio Admitting Unavailable Van Ga Attending Unavailable Gladys, Jose Primary Care Unavailable Van Ga Consulting Unavailable Bursley, Jose Primary Care Unavailable White, Heidi Admitting Unavailable Ashelfah, Ghasem Attending Unavailable White, Heidi Attending Unavailable Bursley, Jose Primary Care Unavailable White, Heidi Admitting Unavailable Ashelfah, Ghasem Attending Unavailable Bursley, Jose Primary Care Unavailable Ashelfah, Ghasem Consulting Unavailable White, Heidi Admitting Unavailable Ashelfah, Ghasem Attending Unavailable Bursley, Jose Primary Care Unavailable Ashelfah, Ghasem Consulting Unavailable White, Heidi Admitting Unavailable Ashelfah, Ghasem Attending Unavailable Gladys, Jose Primary Care Unavailable Ashelfah, Ghasem Consulting Unavailable Chao Wei Attending Unavailable Alexis, Inocencio Referring Unavailable PROBLEMS PROBLEMS DATE TYPE CONDITION / CODE ATTENDING STATUS SOURCE 03/07/2018 Active Generalized NA Active [facility] abdominal pain / [facility] R10.84(ICD-10) [place] Rep[facility] 03/06/2018 Active Diarrhea, NA Active [facility] unspecified / [facility] R19.7(ICD-10) [place] [facility] 03/06/2018 Active Encounter for NA Active [facility] screening for other [facility] disorder / [place] Z13.89(ICD-10) Repository 10/03/2016 Active Myasthenia gravis NA Active [facility] without (acute) [facility] exacerbation / [place] G70.00(ICD-10) Repository 01/17/2018 Active Full incontinence of NA Active [facility] feces / [facility] R15.9(ICD-10) [place] [facility] 01/17/2018 Active Epigastric pain / NA Active [facility] R10.13(ICD-10) [facility] [place] [facility] 01/17/2018 Active Other specified NA Active [facility] diabetes mellitus [facility] with diabetic [place] autonomic Repository (poly)neuropathy / E13.43(ICD-10) 01/17/2018 Active Fatty (change of) NA Active [facility] liver, not elsewhere [facility] classified / [place] K76.0(ICD-10) Repository 01/17/2018 Active Essential (primary) NA Active [facility] hypertension / [facility] I10(ICD-10) [place] [facility] 01/17/2018 Active Moderate NA Active [facility] protein-calorie [facility] malnutrition / [place] E44.0(ICD-10) Repository 01/03/2018 Active Abnormal results of NA Active [facility] liver function [facility] studies / [place] R94.5(ICD-10) Repository 01/03/2018 Active Nausea / NA Active [facility] R11.0(ICD-10) [facility] [place] [facility] 10/03/2016 Active Type 2 diabetes NA Active [facility] mellitus with other [facility] diabetic [place] neurological Repository complication / E11.49(ICD-10) 12/28/2017 Active Tinea unguium / NA Active [facility] B35.1(ICD-10) [facility] [place] [facility] 12/28/2017 Active Other specified NA Active [facility] symptoms and signs [facility] involving the [place] circulatory and Repository respiratory systems / R09.89(ICD-10) 12/26/2017 Active Nonspecific NA Active [facility] elevation of levels [facility] of transaminase and [place] lactic acid Repository dehydrogenase (ldh) / R74.0(ICD-10) 12/26/2017 Active Unknown / BISI, Active [facility] UNK(Unknown) ADRIEN J [facility] [place] [facility] 12/22/2017 Active Pain, unspecified / NA Active [facility] R52(ICD-10) [facility] [place] [facility] 12/07/2017 Active Acute kidney NA Active [facility] failure, unspecified [facility] / N17.9(ICD-10) [place] [facility] 12/07/2017 Active Other specified NA Active [facility] disorders of the [facility] male genital organs [place] / N50.89(ICD-10) Repository 12/07/2017 Active Localized edema / NA Active [facility] R60.0(ICD-10) [facility] [place] Rep[facility] 12/18/2017 Unknown M79.89 - Other Chao Wei Active [facility] specified soft Community tissue disorders / Hospital M79.89(ICD-10) Repository 11/07/2017 Active Other half-way NA Active [facility] (current) drug [facility] therapy / [place] Z79.899(ICD-10) Repository 04/27/2017 Active Other nonspecific NA Active [facility] abnormal finding of [facility] lung field / [place] R91.8(ICD-10) Repository 04/25/2017 Active Type 1 diabetes NA Active [facility] mellitus with [facility] diabetic [place] polyneuropathy / Repository E10.42(ICD-10) 04/25/2017 Active Other specified NA Active [facility] abnormal findings of [facility] blood chemistry / [place] R79.89(ICD-10) Repository 04/25/2017 Active Anemia, unspecified NA Active [facility] / D64.9(ICD-10) Clinic [facility] [place] Rep[facility] 04/25/2017 Active Pleural effusion, NA Active [facility] not elsewhere [facility] Main classified / [place] J90(ICD-10) Repository 04/25/2017 Active Mixed hyperlipidemia NA Active [facility] / E78.2(ICD-10) [facility] Main [place] Repository PROCEDURES PROCEDURES No Procedure Records FoundRESULTS RESULTS PROGRESS Observed: 04/20/2018 Status: COMPLETED Source: [place] 3:10 PM [facility] REPOSITORY HNO ID: [id number] Author: Lisset Nunn) Navin Service: (none) Author Type: Clinical Recruiter Type: Progress Notes Filed: 04/20/2018 3:11 PM Note Text: [facility] HYDROBLASTER QUICKNOTE Provider Action/FYI: Patient is opted out of the care gap registry per Dr. Graham. This was discussed at the teamlet meeting. Patient identified by name and . Lisset Soler MA PROGRESS Observed: 04/20/2018 Status: COMPLETED Source: [place] 10:41 AM [facility] REPOSITORY HNO ID: [id number] Author: Joshua Campbell Service: (none) Author Type: Physician Type: Progress Notes Filed: 04/20/2018 5:10 PM Note Text: NEUROLOGY CONSULT [facility] Chief Complaint: MG REQUESTING PHYSICIAN: Lee Mcnamara DO My final recommendations will be communicated to the requesting health care provider by way of the shared medical record for internal providers or letter via the [employer] for external providers.??? History of Present Illness: This is a 42 year old y.o. right handed male with history of DM type I, gastroparesis, IBD, MG, s/p thymectomy (2001), HLD, HTN who presents today for neurologic consultation. The patient was referred to neurology for evaluation of MG. Mr. Kaiser reports hx of MG, Ab+ in [address] Caruso at [facility]. Symptoms before Dx- diplopia, ptosis, and weakness. He never had myasthenic crisis. MG meds- Imuran and mestinon. Steroids never used b/c hx of DM type I. Thymectomy performed in 2001. Imuran d/c subsequently and mestinon continued 60 mg TID. He became disabled in 2001. He was following with Neurology at [facility]. Reportedly he saw neurology last time 2 years ago. Pt reports having difficulty contacting his neurologist at [facility] and wishes to establish care with [facility] neurology. Current symptoms: Diplopia resolved after thymectomy. Rarely he notices L ptosis when he is tired. No dysphonia or dysphagia. No SOB. Lower extremity weakness that is felt at baseline and slightly worse w activity - worse over the past several months. Gabapentin 300 mg QID RX for neuropathic pain not helping much. Distal LE and UE's paresthesia and pain x 4-5 years. RX statins in 09/2016 (as per EMR atorvastatin 80 mg daily) for HLD and d/c later b/c elevated LFT's. No bladder issues. He reports bowel incontinence related to very loose stools. GI sx (diarrhea) and elevated liver enzymes x 1 year. Labs- HbA1C 12.0 (03/13), MAURO neg (01/11), Hep A + (01/11) Folate 7.1 B12 933 (04/13), ACHR Muscle modulating Ab 85% (0-20%),AchR binding ab 10.2 (<= 0.02 nmol/L), anti SLAAV 35 (<5.0 IU/mL). Hepatic function panel Prot 5.9 ALT 55 AST 26 T bili < 0.2 Alb 2.7 GGT 307 (01/11). Review of Systems: Consitutional: No malaise, fever, chills, changes in weight. ENT: Normal hearing, no tinnitus. No nasal congestion or discharge. No sore throat, or changes in voice. Eye: No blurry vision, visual loss, diplopia. Cardiac: no chest pain, no edema. Respiratory: no shortness of breath, fever, or cough. GI: Diarrhea and occasional incontinence. : No urinary frequency, urgency or discomfort. No incontinence. Neurologic: Musculoskeletal: muscle pain. Endocrine: No problems tolerating cold or warm temperatures. No polyuria, polydipsia, or polyphagia. Psychiatric: Some anxiety/depression. Integumentary:No skin rash. Hematologic/Lymphatic:No bruising, bleeding, swelling. Allergic/Immunologic: No allergies or immunodeficiency. All other systems reviewed are negative. PAST MEDICAL HISTORY Diagnosis Date - Anxiety and depression - Asthma - Diabetic neuropathy (HCC) Seeing Dr. Land - Edentulous - Emphysema lung (HCC) early stages - Fatty liver - Gastroparesis - GERD (gastroesophageal reflux disease) - Hyperlipidemia - Hypertension - IBS (irritable bowel syndrome) previously seeing GI - Myasthenia gravis (HCC) Seeing Dr. Land-neurology - Pulmonary nodules - Shingles - Tobacco use - Type I diabetes mellitus ([facility]) Seeing Dr. Fam Current Outpatient Prescriptions on File Prior to Visit: insulin detemir U-100 (LEVEMIR FLEXTOUCH U-100 INSULN) 100 unit/mL (3 mL) inpn injection Inject subcutaneous 14 units daily. insulin aspart U-100 (NOVOLOG FLEXPEN U-100 INSULIN) 100 unit/mL inpn Take 1 unit per 8 grams of carbs breakfast and lunch; 1:7 at dinner +SSI. 150-200: 1unit, 201-250: 2units, 251-300: 3units, 301-350: 4units, 351-400:5units, TDD 30units. metoprolol tartrate, short acting, (LOPRESSOR) 100 mg tablet Take 1 tablet by mouth twice daily. buPROPion SR (WELLBUTRIN SR) 150 mg 12 hr tablet Take 1 tablet by mouth twice daily. promethazine (PHENERGAN) 25 mg tablet Take 1 tablet by mouth every 6 hours as needed for Nausea/Vomiting. ondansetron orally disintegrating (ZOFRAN ODT) 8 mg disintegrating tablet Take 1 tablet by mouth every 8 hours as needed. gabapentin (NEURONTIN) 300 mg capsule Take 1 capsule by mouth four times daily. Omeprazole 40 mg capsule Take 1 capsule by mouth once daily. budesonide-formoterol (SYMBICORT) 160-4.5 mcg/actuation inhaler Inhale 2 Puffs as instructed twice daily. albuterol HFA (VENTOLIN HFA) 90 mcg/actuation inhaler Inhale 2 Puffs as instructed every 4 hours as needed. hydroCHLOROthiazide (HYDRODIURIL, ESIDRIX) 50 mg tablet Take 1 tablet by mouth once daily. montelukast (SINGULAIR) 10 mg tablet Take 1 tablet by mouth daily at bedtime. furosemide (LASIX) 20 mg tablet Take 1 tablet by mouth once daily. blood sugar diagnostic (TRUE METRIX GLUCOSE TEST STRIP) test strip Use as instructed 3-4 times daily. lancets (TRUEPLUS LANCETS) 33 gauge misc Use as directed 3- 4 times daily. Insulin [place], Disposable, (BD ULTRA-FINE DAYA PEN NEEDLE) 32 gauge x ndle Use one needle for each dose. 4/day. sertraline (ZOLOFT) 100 mg tablet Take 1 tablet by mouth once daily. Compression Knee Highs KNEE HIGH COMPRESSION STOCKINGS 20- 30 MM. DX: EDEMA pyridostigmine (MESTINON) 60 mg tablet Take 1 tablet by mouth three times daily. As needed based on activity. Dr. Land, [facility] sucralfate (CARAFATE) 1 gram tablet Take 1 g by mouth four times daily. gabapentin (NEURONTIN) 300 mg capsule Take one capsule by mouth three times daily, as directed. DX: E11.40 mupirocin (BACTROBAN) 2 % ointment cyclobenzaprine (FLEXERIL) 10 mg tablet Take 1 tablet by mouth three times daily as needed for Muscle Spasm. Dr. Swanson trimethobenzamide (TIGAN) 300 mg capsule Take 1 capsule by mouth three times daily. (Patient not taking: Reported on 12/18/2017 ) MULTIVITAMIN ORAL Take by mouth. No current facility-administered medications on file prior to visit. ALLERGIES Allergen Reactions - Levaquin [Levofloxa* Other: See Comments Aching in joints - Lisinopril Other: See Comments Lip swelling, possible angioedema, face swelling - Losartan Swelling Face swelling - Nicoderm Rash - Reglan [Metoclopram* Hives SOCIAL HISTORY: Patient is single. He smokes 1/2 ppd for many years. Amarilys reports his alcohol use as never. Family History Problem Relation Age of Onset - Cancer Father lung - other (Other) Daughter Depression/Psych - Thyroid Maternal Grandmother - Cancer Paternal Grandmother lung - Cancer Paternal Grandfather throat, brain - Hypertension Mother - other (thyroid issues) Mother General exam: No acute distress BP 133/93 Pulse 76 Resp 18 Ht 5' 6 (1.68m) Wt 148 lb (67.1kg) BMI 23.90 kg/(m2). HEENT: AT/NC, PERRL, EOMI. No nasal discharge. EAC normal. Neck: supple, full range of motion. No lymphadenopathy. Heart: S1 S2 + Lungs: CTA. Abdomen: Bowel sounds present and normoactive. NT/ND. Endocrine: No thyromegaly. Lymphatic: No lymphadenopathy. Extremities: Normal ROM. No joint swelling, or redness. Normal peripheral pulses. Skin: No skin rash. Neurological exam: Mental status: Awake, alert and oriented x3; speech fluent with normal repetition, comprehension and naming. Cranial Nerves: PERRL, extraocular movements intact, very mild L eye lid asymmetry that does not worsen w sustained upgaze, light touch and pinprick are intact in V1-V3, face symmetric, tongue midline. Neck extensors 4/5. Motor: Tone is normal in upper and lower extremities. Symmetric bulk. UE: bilateral deltoid 4/5, elbow flexion/extension 4/5, wrist flexion/extension 4+/5, finger extensors 4/5, finger flexors 4/5, thumb abduction 4/5, dorsal intrinsics 4/5, palmar intrinsics 4/5. LE: bilateral hip flexion/extension 3/5, knee flexion/extension 4+/5, ankle plantar/dorsi- flexion 4-/5. Deep Tendon Reflexes: Bilateral brachioradialis 1+, biceps 1+, triceps 1+. Bilateral patella trace, ankle absent. Toes are downgoing bilaterally.Sanders's neg. Sensory: Light touch and pinprick are decreased below the knees and in hands. VS decreased in feet. MARCO WNL. Coordination: Normal [id number]. Gait: Unable to get up w/o assistance. Able to walk independently. DATA: Diagnostic tests reviewed for today's visit, films/specimens were personally reviewed by me: Most recent labs and imaging results. LABORATORIES: HbA1C 12.0 (03/13), MAURO neg (01/11), Hep A + (01/11) Folate 7.1 B12 933 (04/13), ACHR Muscle modulating Ab 85% (0-20%),AchR binding ab 10.2 (<= 0.02 nmol/L), anti SLAVA 35 (<5.0 IU/mL). Hepatic function panel Prot 5.9 ALT 55 AST 26 T bili < 0.2 Alb 2.7 GGT 307 (01/11). CK 164 (12/2016) IMAGING STUDIES: Results CT CHEST WO IVCON (Order [id number]) Patient Info Patient Name Sex NORAH Amarilys Kaiser Jr. ([id number]) Male 1975 01/04/2018 ?8:13 AM - Radiology, [place] In Impression IMPRESSION: No acute pulmonary process is identified. ?Stable bilateral pulmonary nodules, measuring up to 6 mm in size. ?Consider a follow- up examination in 6-12 months in order to assess stability. IMPRESSION: - Generalized MG with (+) AchR ab, s/p thymectomy, currently symptomatic (w evidence of moderate weakness in all ext including neck extensors). - Peripheral neuropathy, likely DM related - Uncontrolled DM type I - Smoker PLAN: Additional labs (CK and HMGCR ab given statin exposure). EMG PN protocol (need to know degree of PN) Improve DM control Quit smoking Will consider IVIG monthly given underlying DM, LFT abn, GI complaints. Pt to call me after EMG to coordinate IVIG tx. I spent 60 minutes in the visit, with more than 50% of the total [id number] time of the visit in counseling / coordination of care. Joshua Campbell MD Staff, Neurology and Neuromuscular Medicine CNOV Observed: 04/20/2018 Status: COMPLETED Source: [place] 9:40 AM [facility] REPOSITORY Office Visit (NENMMN) AMARILYS KAISER JR. ([id number]) 1975 M Date Time Provider Department 04/20/18 9:40 AM JOSHUA CAMPBELL [facility] During your visit today, we recorded the following information about you: Pulse Respiration Blood pressure Weight 76/minute 18/minute 133/93 67.1 kg Height 1.676 m Joshua Campbell MD 04/20/2018 5:10 PM Signed [facility] [place] [facility] Chief Complaint: MG REQUESTING PHYSICIAN: Lee Mcnamara, DO My final recommendations will be communicated to the requesting health care provider by way of the shared medical record for internal providers or letter via the [employer] for external providers.??? History of Present Illness: This is a 42 year old y.o. right handed male with history of DM type I, gastroparesis, IBD, MG, s/p thymectomy (2001), HLD, HTN who presents today for neurologic consultation. The patient was referred to neurology for evaluation of MG. Mr. Kaiser reports hx of MG, Ab+ in [address] Caruso at [facility]. Symptoms before Dx- diplopia, ptosis, and weakness. He never had myasthenic crisis. MG meds- Imuran and mestinon. Steroids never used b/c hx of DM type I. Thymectomy performed in 2001. Imuran d/c subsequently and mestinon continued 60 mg TID. He became disabled in 2001. He was following with Neurology at [facility]. Reportedly he saw neurology last time 2 years ago. Pt reports having difficulty contacting his neurologist at [facility] and wishes to establish care with [facility] neurology. Current symptoms: Diplopia resolved after thymectomy. Rarely he notices L ptosis when he is tired. No dysphonia or dysphagia. No SOB. Lower extremity weakness that is felt at baseline and slightly worse w activity - worse over the past several months. Gabapentin 300 mg QID RX for neuropathic pain not helping much. Distal LE and UE's paresthesia and pain x 4-5 years. RX statins in 09/2016 (as per EMR atorvastatin 80 mg daily) for HLD and d/c later b/c elevated LFT's. No bladder issues. He reports bowel incontinence related to very loose stools. GI sx (diarrhea) and elevated liver enzymes x 1 year. Labs- HbA1C 12.0 (03/13), MAURO neg (01/11), Hep A + (01/11) Folate 7.1 B12 933 (04/13), ACHR Muscle modulating Ab 85% (0-20%),AchR binding ab 10.2 (<= 0.02 nmol/L), anti SLAVA 35 (<5.0 IU/mL). Hepatic function panel Prot 5.9 ALT 55 AST 26 T bili < 0.2 Alb 2.7 GGT 307 (01/11). Review of Systems: Consitutional: No malaise, fever, chills, changes in weight. ENT: Normal hearing, no tinnitus. No nasal congestion or discharge. No sore throat, or changes in voice. Eye: No blurry vision, visual loss, diplopia. Cardiac: no chest pain, no edema. Respiratory: no shortness of breath, fever, or cough. GI: Diarrhea and occasional incontinence. : No urinary frequency, urgency or discomfort. No incontinence. Neurologic: Musculoskeletal: muscle pain. Endocrine: No problems tolerating cold or warm temperatures. No polyuria, polydipsia, or polyphagia. Psychiatric: Some anxiety/depression. Integumentary:No skin rash. Hematologic/Lymphatic:No bruising, bleeding, swelling. Allergic/Immunologic: No allergies or immunodeficiency. All other systems reviewed are negative. PAST MEDICAL HISTORY Diagnosis Date - Anxiety and depression - Asthma - Diabetic neuropathy (HCC) Seeing Dr. Land - Edentulous - Emphysema lung ([facility]) early stages - Fatty liver - Gastroparesis - GERD (gastroesophageal reflux disease) - Hyperlipidemia - Hypertension - IBS (irritable bowel syndrome) previously seeing GI - Myasthenia gravis ([facility]) Seeing Dr. Land-neurology - Pulmonary nodules - Shingles - Tobacco use - Type I diabetes mellitus ([facility]) Seeing Dr. Fam Current Outpatient Prescriptions on File Prior to Visit: insulin detemir U-100 (LEVEMIR FLEXTOUCH U-100 INSULN) 100 unit/mL (3 mL) inpn injection Inject subcutaneous 14 units daily. insulin aspart U-100 (NOVOLOG FLEXPEN U-100 INSULIN) 100 unit/mL inpn Take 1 unit per 8 grams of carbs breakfast and lunch; 1:7 at dinner +SSI. 150-200: 1unit, 201-250: 2units, 251-300: 3units, 301-350: 4units, 351-400:5units, TDD 30units. metoprolol tartrate, short acting, (LOPRESSOR) 100 mg tablet Take 1 tablet by mouth twice daily. buPROPion SR (WELLBUTRIN SR) 150 mg 12 hr tablet Take 1 tablet by mouth twice daily. promethazine (PHENERGAN) 25 mg tablet Take 1 tablet by mouth every 6 hours as needed for Nausea/Vomiting. ondansetron orally disintegrating (ZOFRAN ODT) 8 mg disintegrating tablet Take 1 tablet by mouth every 8 hours as needed. gabapentin (NEURONTIN) 300 mg capsule Take 1 capsule by mouth four times daily. Omeprazole 40 mg capsule Take 1 capsule by mouth once daily. budesonide-formoterol (SYMBICORT) 160-4.5 mcg/actuation inhaler Inhale 2 Puffs as instructed twice daily. albuterol HFA (VENTOLIN HFA) 90 mcg/actuation inhaler Inhale 2 Puffs as instructed every 4 hours as needed. hydroCHLOROthiazide (HYDRODIURIL, ESIDRIX) 50 mg tablet Take 1 tablet by mouth once daily. montelukast (SINGULAIR) 10 mg tablet Take 1 tablet by mouth daily at bedtime. furosemide (LASIX) 20 mg tablet Take 1 tablet by mouth once daily. blood sugar diagnostic (TRUE METRIX GLUCOSE TEST STRIP) test strip Use as instructed 3-4 times daily. lancets (TRUEPLUS LANCETS) 33 gauge misc Use as directed 3- 4 times daily. Insulin [place], Disposable, (BD ULTRA-FINE DAYA PEN NEEDLE) 32 gauge x /32 ndle Use one needle for each dose. 4/day. sertraline (ZOLOFT) 100 mg tablet Take 1 tablet by mouth once daily. Compression Knee Highs KNEE HIGH COMPRESSION STOCKINGS 20- 30 MM. DX: EDEMA pyridostigmine (MESTINON) 60 mg tablet Take 1 tablet by mouth three times daily. As needed based on activity. Dr. Land, [facility] sucralfate (CARAFATE) 1 gram tablet Take 1 g by mouth four times daily. gabapentin (NEURONTIN) 300 mg capsule Take one capsule by mouth three times daily, as directed. DX: E11.40 mupirocin (BACTROBAN) 2 % ointment cyclobenzaprine (FLEXERIL) 10 mg tablet Take 1 tablet by mouth three times daily as needed for Muscle Spasm. Dr. Swanson trimethobenzamide (TIGAN) 300 mg capsule Take 1 capsule by mouth three times daily. (Patient not taking: Reported on 12/18/2017 ) MULTIVITAMIN ORAL Take by mouth. No current facility-administered medications on file prior to visit. ALLERGIES Allergen Reactions - Levaquin [Levofloxa* Other: See Comments Aching in joints - Lisinopril Other: See Comments Lip swelling, possible angioedema, face swelling - Losartan Swelling Face swelling - Nicoderm Rash - Reglan [Metoclopram* Hives SOCIAL HISTORY: Patient is single. He smokes 1/2 ppd for many years. Amarilys reports his alcohol use as never. Family History Problem Relation Age of Onset - Cancer Father lung - other (Other) Daughter Depression/Psych - Thyroid Maternal Grandmother - Cancer Paternal Grandmother lung - Cancer Paternal Grandfather throat, brain - Hypertension Mother - other (thyroid issues) Mother General exam: No acute distress BP 133/93 Pulse 76 Resp 18 Ht 5' 6 (1.68m) Wt 148 lb (67.1kg) BMI 23.90 kg/(m2). HEENT: AT/NC, PERRL, EOMI. No nasal discharge. EAC normal. Neck: supple, full range of motion. No lymphadenopathy. Heart: S1 S2 + Lungs: CTA. Abdomen: Bowel sounds present and normoactive. NT/ND. Endocrine: No thyromegaly. Lymphatic: No lymphadenopathy. Extremities: Normal ROM. No joint swelling, or redness. Normal peripheral pulses. Skin: No skin rash. Neurological exam: Mental status: Awake, alert and oriented x3; speech fluent with normal repetition, comprehension and naming. Cranial Nerves: PERRL, extraocular movements intact, very mild L eye lid asymmetry that does not worsen w sustained upgaze, light touch and pinprick are intact in V1-V3, face symmetric, tongue midline. Neck extensors 4/5. Motor: Tone is normal in upper and lower extremities. Symmetric bulk. UE: bilateral deltoid 4/5, elbow flexion/extension 4/5, wrist flexion/extension 4+/5, finger extensors 4/5, finger flexors 4/5, thumb abduction 4/5, dorsal intrinsics 4/5, palmar intrinsics 4/5. LE: bilateral hip flexion/extension 3/5, knee flexion/extension 4+/5, ankle plantar/dorsi- flexion 4-/5. Deep Tendon Reflexes: Bilateral brachioradialis 1+, biceps 1+, triceps 1+. Bilateral patella trace, ankle absent. Toes are downgoing bilaterally.Sanders's neg. Sensory: Light touch and pinprick are decreased below the knees and in hands. VS decreased in feet. MARCO WNL. Coordination: Normal lgyqwr-fqlb-auxyev. Gait: Unable to get up w/o assistance. Able to walk independently. DATA: Diagnostic tests reviewed for today's visit, films/specimens were personally reviewed by me: Most recent labs and imaging results. LABORATORIES: HbA1C 12.0 (03/13), MAURO neg (01/11), Hep A + (01/11) Folate 7.1 B12 933 (04/13), ACHR Muscle modulating Ab 85% (0-20%),AchR binding ab 10.2 (<= 0.02 nmol/L), anti SLAVA 35 (<5.0 IU/mL). Hepatic function panel Prot 5.9 ALT 55 AST 26 T bili < 0.2 Alb 2.7 GGT 307 (01/11). CK 164 (12/2016) IMAGING STUDIES: Results CT CHEST WO IVCON (Order [id number]) Patient Info Patient Name Sex Amarilys Busch Jr. ([id number]) Male 1975 01/04/2018 ?8:13 AM - Radiology, O[place] In Impression IMPRESSION: No acute pulmonary process is identified. ?Stable bilateral pulmonary nodules, measuring up to 6 mm in size. ?Consider a follow- up examination in 6-12 months in order to assess stability. IMPRESSION: - Generalized MG with (+) AchR ab, s/p thymectomy, currently symptomatic (w evidence of moderate weakness in all ext including neck extensors). - Peripheral neuropathy, likely DM related - Uncontrolled DM type I - Smoker PLAN: Additional labs (CK and HMGCR ab given statin exposure). EMG PN protocol (need to know degree of PN) Improve DM control Quit smoking Will consider IVIG monthly given underlying DM, LFT abn, GI complaints. Pt to call me after EMG to coordinate IVIG tx. I spent 60 minutes in the visit, with more than 50% of the total lgzo-lo-iybo time of the visit in counseling / coordination of care. Joshua Campbell MD Staff, Neurology and Neuromuscular Medicine Joshua Campbell MD 04/20/2018 11:39 AM Signed Blood work EMG Increase gabapentin to 600 mg three times a day Will consider IVIG for myasthenia treatment Referring Provider: LEE MCNAMARA [[id number]] Allergies As of Date: 04/20/2018 Noted Allergy Reaction LEVAQUIN (LEVOFLOXACIN) 12/07/2017 14 - Other: See Comments Comments: Aching in joints LISINOPRIL 11/14/2017 14 - Other: See Comments Comments: Lip swelling, possible angioedema, face swelling LOSARTAN 12/07/2017 7 - Swelling Comments: Face swelling NICODERM 10/03/2016 2 - Rash REGLAN (METOCLOPRAMIDE HCL) 07/26/2016 4 - Hives Date Reviewed: 04/20/2018 Reviewed by: Monika Boo RN - Fully Assessed Reason for Visit: New Patient [172] Primary Visit Diagnosis:Myasthenia gravis with exacerbation (HCC) [G70.01] Other Visit Diagnoses:Myopathy [G72.9] Uncontrolled type I diabetes mellitus with neuropathy (HCC) [E10.40, E10.65] Order(s):EMG(NEURO/NI) [20100625] Order #: [id number]: 1 FUTURE CK CREATINE KINASE [SQCK] Order #: [id number] FUTURE ANTI HMGCR AUTOANTIBODIES [SQHMGCR] Order #: [id number] FUTURE Prescriptions as of 04/20/2018 Sig: INSULIN DETEMIR (U-100) 100 U* Inject subcutaneous 14 units * INSULIN ASPART U-100 100 UNI* Take 1 unit per 8 grams of ca* METOPROLOL TARTRATE 100 MG TA* Take 1 tablet by mouth twice * BUPROPION HCL SR 150 MG TABLE* Take 1 tablet by mouth twice * PROMETHAZINE 25 MG TABLET Take 1 tablet by mouth every * ONDANSETRON 8 MG DISINTEGRATI* Take 1 tablet by mouth every * GABAPENTIN 300 MG CAPSULE Take 1 capsule by mouth four * OMEPRAZOLE 40 MG CAPSULE,YONNY* Take 1 capsule by mouth once * BUDESONIDE-FORMOTEROL HFA 160* Inhale 2 Puffs as instructed * ALBUTEROL SULFATE HFA 90 MCG/* Inhale 2 Puffs as instructed * HYDROCHLOROTHIAZIDE 50 MG TAB* Take 1 tablet by mouth once d* MONTELUKAST 10 MG TABLET Take 1 tablet by mouth daily * FUROSEMIDE 20 MG TABLET Take 1 tablet by mouth once d* BLOOD SUGAR DIAGNOSTIC STRIPS Use as instructed 3-4 times d* LANCETS 33 GAUGE Use as directed 3-4 times willy* PEN NEEDLE, DIABETIC 32 GAUGE* Use one needle for each dose.* SERTRALINE 100 MG TABLET Take 1 tablet by mouth once d* COMPOUNDED PRESCRIPTION KNEE HIGH COMPRESSION STOCKIN* PYRIDOSTIGMINE BROMIDE 60 MG * Take 1 tablet by mouth three * SUCRALFATE 1 GRAM TABLET Take 1 g by mouth four times * GABAPENTIN 300 MG CAPSULE Take one capsule by mouth thr* MUPIROCIN 2 % TOPICAL OINTMENT CYCLOBENZAPRINE 10 MG TABLET Take 1 tablet by mouth three * TRIMETHOBENZAMIDE 300 MG CAPS* Take 1 capsule by mouth three* Patient not taking: Reported on 12/18/2017 MULTIVITAMIN ORAL Take by mouth. Medication notes this encounter BUPROPION HCL SR 150 MG TABLET,12 HR SUSTAINED-RELEASE >> Jamila Preston MA 04/20/2018 9:56 AM >> JAMILA PRESTON Apr 20, 2018 9:56 AM Problem List As Of Date 04/20/2018 Noted Resolved Anxiety and depression [F41.9, F32.9] INVALID FOR* Diabetic neuropathy (HCC) [E11.40] More... Asthma [J45.909] GERD (gastroesophageal reflux disease) [K21.9] IBS (irritable bowel syndrome) [K58.9] More... Myasthenia gravis (HCC) [G70.00] More... Tobacco use [Z72.0] Type I diabetes mellitus (HCC) [E10.9] More... Hyperlipidemia [E78.5] Essential hypertension [I10] INVALID FOR* Gastroparesis [K31.84] INVALID FOR* Hypoglycemia [E16.2] INVALID FOR* Other instructions from your clinician: Blood work EMG Increase gabapentin to 600 mg three times a day Will consider IVIG for myasthenia treatment Encounter Status:Closed by JOSHUA CAMPBELL MD on 04/20/18 ALFREDOTOUTREAFRANKY Observed: 04/20/2018 Status: COMPLETED Source: [place] 12:00 AM [facility] REPOSITORY Patient Outreach (FAMPWS) AMARILYS KAISER JR. ([id number]) 1975 M Date Time Provider Department 04/20/18 LISSET SOLER) BERTHAWS During your visit today, we recorded the following information about you: Lisset Soler MA 04/20/2018 3:11 PM Signed [facility] HYDROBLASTER QUICKNOTE Provider Action/FYI: Patient is opted out of the care gap registry per Dr. Graham. This was discussed at the teamlet meeting. Patient identified by name and . Lisset Soler MA Allergies As of Date: 04/20/2018 Noted Allergy Reaction LEVAQUIN (LEVOFLOXACIN) 12/07/2017 14 - Other: See Comments Comments: Aching in joints LISINOPRIL 11/14/2017 14 - Other: See Comments Comments: Lip swelling, possible angioedema, face swelling LOSARTAN 12/07/2017 7 - Swelling Comments: Face swelling NICODERM 10/03/2016 2 - Rash REGLAN (METOCLOPRAMIDE HCL) 07/26/2016 4 - Hives Date Reviewed: 04/20/2018 Reviewed by: Jamila Nunn) Kary - Fully Assessed Reason for Visit: [facility]/Care Gap Outreach [[id number]] Prescriptions as of 04/20/2018 Sig: INSULIN DETEMIR (U-100) 100 U* Inject subcutaneous 14 units * INSULIN ASPART U-100 100 UNI* Take 1 unit per 8 grams of ca* METOPROLOL TARTRATE 100 MG TA* Take 1 tablet by mouth twice * BUPROPION HCL SR 150 MG TABLE* Take 1 tablet by mouth twice * PROMETHAZINE 25 MG TABLET Take 1 tablet by mouth every * ONDANSETRON 8 MG DISINTEGRATI* Take 1 tablet by mouth every * GABAPENTIN 300 MG CAPSULE Take 1 capsule by mouth four * OMEPRAZOLE 40 MG CAPSULE,YONNY* Take 1 capsule by mouth once * BUDESONIDE-FORMOTEROL HFA 160* Inhale 2 Puffs as instructed * ALBUTEROL SULFATE HFA 90 MCG/* Inhale 2 Puffs as instructed * HYDROCHLOROTHIAZIDE 50 MG TAB* Take 1 tablet by mouth once d* MONTELUKAST 10 MG TABLET Take 1 tablet by mouth daily * FUROSEMIDE 20 MG TABLET Take 1 tablet by mouth once d* BLOOD SUGAR DIAGNOSTIC STRIPS Use as instructed 3-4 times d* LANCETS 33 GAUGE Use as directed 3-4 times willy* PEN NEEDLE, DIABETIC 32 GAUGE* Use one needle for each dose.* GABAPENTIN 300 MG CAPSULE Take one capsule by mouth thr* MUPIROCIN 2 % TOPICAL OINTMENT SERTRALINE 100 MG TABLET Take 1 tablet by mouth once d* COMPOUNDED PRESCRIPTION KNEE HIGH COMPRESSION STOCKIN* PYRIDOSTIGMINE BROMIDE 60 MG * Take 1 tablet by mouth three * CYCLOBENZAPRINE 10 MG TABLET Take 1 tablet by mouth three * TRIMETHOBENZAMIDE 300 MG CAPS* Take 1 capsule by mouth three* Patient not taking: Reported on 12/18/2017 SUCRALFATE 1 GRAM TABLET Take 1 g by mouth four times * MULTIVITAMIN ORAL Take by mouth. Problem List As Of Date 04/20/2018 Noted Resolved Anxiety and depression [F41.9, F32.9] INVALID FOR* Diabetic neuropathy (HCC) [E11.40] More... Asthma [J45.909] GERD (gastroesophageal reflux disease) [K21.9] IBS (irritable bowel syndrome) [K58.9] More... Myasthenia gravis (HCC) [G70.00] More... Tobacco use [Z72.0] Type I diabetes mellitus (HCC) [E10.9] More... Hyperlipidemia [E78.5] Essential hypertension [I10] INVALID FOR* Gastroparesis [K31.84] INVALID FOR* Hypoglycemia [E16.2] INVALID FOR* Encounter Status:Closed by LISSET SOLER on 04/20/18 KIDNEY AND BLADDER Observed: 04/18/2018 Status: F Source: [place] 2:01 PM [facility] REPOSITORY [facility] Imaging Services [address] [place] [address] Kidney and Bladder MR#: [id number] Acct: [id number] Name: AMARILYS KAISER Rep #: [id number] : 1975 M 42 From: Tez Vargas MD PCP: Jose Graham MD Status: REG CLI Study: Kidney and Bladder Date of Exam: 04/18/18 Exam# [id number] Ordering Dr: Nina Vang DO STUDY: RENAL ULTRASOUND - COMPLETE REASON FOR EXAM: Male, 42 years old. Proteinuria. Diabetes. TECHNIQUE: Ultrasound evaluation of the kidneys was performed with real-time and static noel-scale imaging. COMPARISON: None available. FINDINGS: RIGHT KIDNEY: Normal location of the right kidney, which is normal in size. The right kidney measures 10.8 cm. There is a normal cortex of the right kidney. There is no right renal mass or cyst. There are no right renal calculi. There is no right hydronephrosis. DISTAL RIGHT URETER: There is non-visualization of the distal right ureter. There is no demonstrated right ureterovesical junction calculus. There is a visualized right ureteral jet. LEFT KIDNEY: Normal location of the left kidney, which is normal in size. The left kidney measures 10.7 cm. There is a normal cortex of the left kidney. There is no left renal mass or cyst. There are no left renal calculi. There is no left hydronephrosis. DISTAL LEFT URETER: There is non-visualization of the distal left ureter. There is no demonstrated left ureterovesical junction calculus. There is a visualized left ureteral jet. BLADDER: The urinary bladder is partially distended and appears unremarkable. There is ascites noted. US/Kidney and Bladder IMPRESSION: Normal ultrasound of the kidneys and urinary bladder. Ascites. Electronically Signed: Tez Sam, at 23:22 EST Tel , Service support , CC: Nina Vang DO; Jose Graham MD Sales Producer: Signed PROTEIN+CREATININE Collected: Status: F Source: FARA HANDY,URINE 04/17/2018 3:37 PM [facility] REPOSITORY TYPE CODE TESTS RESULT OUT OF RANGE REFERENCE UNITS LAB L501.1200 NO RANGE EST. mg/dL Normal UR CREAT 59.00 LAB L501.1930 <11.9 mg/dL High 875.6 PROTEIN,UR.R AN. LAB L501.1940 0-200 mg/g CRE High PROT:CRE [id number] RATIO Performed By: #### L501.0900 #### [facility] [address] [place], [address] PROGRESS Observed: 04/13/2018 Status: COMPLETED Source: [place] 9:06 AM [facility] REPOSITORY HNO ID: [id number] Author: Vesna Harrison Service: (none) Author Type: Nurse Practitioner Type: Progress Notes Filed: 04/13/2018 10:28 AM Note Text: Reason for Consultation: DM Type 1 Referring Physician: SELF HISTORY OF PRESENT ILLNESS Mr. Kaiser is a 42 year old male presenting here today for a follow up of DM Type 1. As I recall, he was initially diagnosed with diabetes 1999. Previous patient of Dr. Fam; LV 12/18/2017 A1C 12.0 on 03/06/2018 States dx with myasthenia gravis in 1999. Going to see nephrology next week in [place] for macroalbuminuria. FHx of diabetes in uncle and Aunts Interested in medtronic pump/sensor. ? Known complications include: hypertension, gastroparesis, autonomic neuropathy, peripheral neuropathy, retinopathy, nephropathy ? Exacerbating factors include: none ? Current diabetes regimen is as follows: 1. levemir 34 units daily---pt only taking 14 units daily --due to low sugars overnight as low as 32. 2. novolog ratio 1:8 plus SS 1 he is checking his blood glucose 4 times daily. he does bring a log book today for review. ? LDE Blood Sugar Frequency: ? BS range: 32 to 572 ? FBS 114, 155, 240, 143, 514, 45 ? acL 91, 40/292, 380 ? acS 572 ? HS 434, 481 ? Post dinner 569, ? Hypoglycemia frequency: once weekly; does not always check but has been low as 32. ? Hypoglycemia awareness: Yes Regarding symptoms of hypoglycemia, he is is not experiencing any symptoms such as polyuria, polydipsia, nocturia or rapid weight loss or blurry vision, Overall, the patient has no acute complaints at this time. PAST MEDICAL HISTORY Diagnosis Date - Anxiety and depression - Asthma - Diabetic neuropathy (HCC) Seeing Dr. Land - Edentulous - Emphysema lung (HCC) early stages - Fatty liver - Gastroparesis - GERD (gastroesophageal reflux disease) - Hyperlipidemia - Hypertension - IBS (irritable bowel syndrome) previously seeing GI - Myasthenia gravis (HCC) Seeing Dr. Land-neurology - Pulmonary nodules - Shingles - Tobacco use - Type I diabetes mellitus (HCC) Seeing Dr. Fam PAST SURGICAL HISTORY Procedure Laterality Date - COLONOSCOPY 09/08/2015 poor prep - procedure aborted - EGD 01/04/2016 [facility] - PAST SURGICAL HISTORY OF Thymectomy - PAST SURGICAL HISTORY OF Cholecystectomy - PAST SURGICAL HISTORY OF teeth extraction-total FAMILY HISTORY Problem Relation Age of Onset - Cancer Father lung - other (Other) Daughter Depression/Psych - Thyroid Maternal Grandmother - Cancer Paternal Grandmother lung - Cancer Paternal Grandfather throat, brain - Hypertension Mother - other (thyroid issues) Mother Social History Marital status: Single Spouse name: Years of education: Number of children: 2 Social History Main Topics Smoking status: Current Every Day Smoker Packs/day: 1.00 Years: 26.00 Types: Cigarettes Smokeless tobacco: Never Used Comment: down from 2 packs per day Alcohol use: Yes Comment: rarely Drug use: Yes Frequency: 3.0 times per week Types: Marijuana Comment: now down to once a week Sexual activity: Not Currently Allergies As of Date: 04/13/2018 Allergen Noted Reaction LEVAQUIN [LEVOFLOXACIN] 12/07/2017 Other: See Comments LISINOPRIL 11/14/2017 Other: See Comments LOSARTAN 12/07/2017 Swelling NICODERM 10/03/2016 Rash REGLAN [METOCLOPRAMIDE HCL] 07/26/2016 Hives Fully Assessed 04/13/2018 Current Outpatient Prescriptions: insulin detemir U-100 (LEVEMIR FLEXTOUCH U-100 INSULN) 100 unit/mL (3 mL) inpn injection Inject subcutaneous 14 units daily. Disp: 15 Pen Rfl: 0 insulin aspart U-100 (NOVOLOG FLEXPEN U-100 INSULIN) 100 unit/mL inpn Take 1 unit per 8 grams of carbs breakfast and lunch; 1:7 at dinner +SSI. 150-200: 1unit, 201-250: 2units, 251-300: 3units, 301-350: 4units, 351-400:5units, TDD 30units. Disp: 30 mL Rfl: 1 metoprolol tartrate, short acting, (LOPRESSOR) 100 mg tablet Take 1 tablet by mouth twice daily. Disp: 60 tablet Rfl: 5 promethazine (PHENERGAN) 25 mg tablet Take 1 tablet by mouth every 6 hours as needed for Nausea/Vomiting. Disp: 120 tablet Rfl: 6 ondansetron orally disintegrating (ZOFRAN ODT) 8 mg disintegrating tablet Take 1 tablet by mouth every 8 hours as needed. Disp: 90 tablet Rfl: 6 gabapentin (NEURONTIN) 300 mg capsule Take 1 capsule by mouth four times daily. Disp: 120 capsule Rfl: 3 Omeprazole 40 mg capsule Take 1 capsule by mouth once daily. Disp: 30 capsule Rfl: 1 budesonide-formoterol (SYMBICORT) 160-4.5 mcg/actuation inhaler Inhale 2 Puffs as instructed twice daily. Disp: 3 Inhaler Rfl: 1 albuterol HFA (VENTOLIN HFA) 90 mcg/actuation inhaler Inhale 2 Puffs as instructed every 4 hours as needed. Disp: 3 Inhaler Rfl: 1 hydroCHLOROthiazide (HYDRODIURIL, ESIDRIX) 50 mg tablet Take 1 tablet by mouth once daily. Disp: 90 tablet Rfl: 0 montelukast (SINGULAIR) 10 mg tablet Take 1 tablet by mouth daily at bedtime. Disp: 90 tablet Rfl: 1 furosemide (LASIX) 20 mg tablet Take 1 tablet by mouth once daily. Disp: 30 tablet Rfl: 2 blood sugar diagnostic (TRUE METRIX GLUCOSE TEST STRIP) test strip Use as instructed 3-4 times daily. Disp: 400 Strip Rfl: 1 lancets (TRUEPLUS LANCETS) 33 gauge misc Use as directed 3- 4 times daily. Disp: 400 Each Rfl: 1 Insulin [place], Disposable, (BD ULTRA-FINE DAYA PEN NEEDLE) 32 gauge x 5/32 ndle Use one needle for each dose. 4/day. Disp: 400 Each Rfl: 1 sertraline (ZOLOFT) 100 mg tablet Take 1 tablet by mouth once daily. Disp: 90 tablet Rfl: 1 Compression Knee Highs KNEE HIGH COMPRESSION STOCKINGS 20- 30 MM. DX: EDEMA Disp: 1 Device Rfl: 1 pyridostigmine (MESTINON) 60 mg tablet Take 1 tablet by mouth three times daily. As needed based on activity. Dr. Land, [facility] Disp: Rfl: buPROPion SR (WELLBUTRIN SR) 150 mg 12 hr tablet Take 1 tablet by mouth twice daily. Disp: 60 tablet Rfl: 2 gabapentin (NEURONTIN) 300 mg capsule Take one capsule by mouth three times daily, as directed. DX: E11.40 Disp: 270 capsule Rfl: 1 mupirocin (BACTROBAN) 2 % ointment Disp: Rfl: cyclobenzaprine (FLEXERIL) 10 mg tablet Take 1 tablet by mouth three times daily as needed for Muscle Spasm. Dr. Swanson Disp: Rfl: trimethobenzamide (TIGAN) 300 mg capsule Take 1 capsule by mouth three times daily. (Patient not taking: Reported on 12/18/2017 ) Disp: 30 capsule Rfl: 6 sucralfate (CARAFATE) 1 gram tablet Take 1 g by mouth four times daily. Disp: Rfl: MULTIVITAMIN ORAL Take by mouth. Disp: Rfl: No current facility-administered medications for this visit. REVIEW OF SYSTEMS General: no fever and no chills Skin: dry skin Cardiac: denies chest pain, heart palpitations or orthopnea Pulmonary: denies wheezing or exertional dyspnea but cough with smoking PHYSICAL EXAMINATION BP 140/88 Pulse 107 Ht 167.5 cm (5' 5.95) Wt 67.6 kg (149 lb) SpO2 100% BMI 24.09 kg/m2 Physical Exam Constitutional: He is oriented to person, place, and time and well-developed, well-nourished, and in no distress. No distress. HENT: Head: Normocephalic and atraumatic. Eyes: Right eye exhibits no discharge. Left eye exhibits no discharge. Cardiovascular: Normal rate and regular rhythm. Pulmonary/Chest: Effort normal and breath sounds normal. Neurological: He is alert and oriented to person, place, and time. Skin: Skin is warm and dry. He is not diaphoretic. Psychiatric: Mood, memory, affect and judgment normal. Per podiatry--appt next week. DATA Creatinine Date Value Ref Range Status 03/06/2018 1.32 (H) 0.73 - 1.22 mg/dL Final Hemoglobin A1C (%) Date Value 03/06/2018 12.0 ) No components found for: URINEALBUMIN Cholesterol, Total (mg/dL) Date Value 04/25/2017 330 HDL Cholesterol (mg/dL) Date Value 04/25/2017 72 LDL Cholesterol (mg/dL) Date Value 04/25/2017 203 Triglyceride (mg/dL) Date Value 04/25/2017 276 IMPRESSION: Mr. Kaiser is a 42 year old male here for evaluation of DM Type 1 complicated by hypertension, retinopathy, autonomic neuropathy and gastroparesis, hypoglycemia RECOMMENDATIONS: (E10.8, E10.65) Diabetes mellitus type 1, uncontrolled, with complications (HCC) (primary encounter diagnosis) Comment: Complications of: retinopathy, gastroparesis, peripheral neuropathy, autonomic neuropathy, nephropathy. Glycemic control is above goal. Readings are variable. Adjustments made as able today. He would benefit from a pump with sensor and wants to use Medtr[employer]. Info given for Tate Crockett, [employer] Rep. Plan: COMP METABOLIC PANEL, LIPID PANEL BASIC, ALBUMIN/CREAT RATIO RND UR, insulin detemir U-100 (LEVEMIR FLEXTOUCH U-100 INSULN) 100 unit/mL (3 mL) inpn injection, insulin aspart U-100 (NOVOLOG FLEXPEN U-100 INSULIN) 100 unit/mL inpn Levemir 14 units daily. Novolog Breakfast ratio 1:8 Lunch ratio 1:8 Dinner ratio 1:7; Lower to 1:6 if still high at bedtime. Plus the same correction of 1:50 for sugars over 150. Send readings in a week. Contact Tate Crockett regarding a pump. Follow up in 3 months (I10) Essential hypertension Comment: BP with improvement when repeated. Plan: Stop smoking. Follow up with PCP/nephrology (K31.84) Gastroparesis Comment/Plan: Stable (E16.2) Hypoglycemia Comment: Blood sugars as low as 32. Plan: He would benefit from pump with sensor. Given Tate Crockett contact info. (Z72.0) Tobacco use Comment/Plan: Encourage cessation; he is trying to quit Vesna Harrison APRN, ASSOCIATE DIRECTOR-C Endocrinology [facility] Medical Office [facility]/[address] [place] [address] Fax: CNOV Observed: 04/13/2018 Status: COMPLETED Source: [place] 8:45 AM [facility] REPOSITORY Office Visit (ENDMED) AMARILYS KAISER JR. ([id number]) 1975 M Date Time Provider Department 1/18/19 8:45 AM VESNA HARRISON ([place]) ENDMED During your visit today, we recorded the following information about you: Pulse Blood pressure Weight Height 107/minute 140/88 67.6 kg 1.675 m Vesna Harrison APRN.CNP 04/13/2018 10:28 AM Signed Reason for Consultation: DM Type 1 Referring Physician: SELF HISTORY OF PRESENT ILLNESS Mr. Kaiser is a 42 year old male presenting here today for a follow up of DM Type 1. As I recall, he was initially diagnosed with diabetes 1999. Previous patient of Dr. Fam; LV 12/18/2017 A1C 12.0 on 03/06/2018 States dx with myasthenia gravis in 1999. Going to see nephrology next week in [place] for macroalbuminuria. FHx of diabetes in uncle and Aunts Interested in medtronic pump/sensor. ? Known complications include: hypertension, gastroparesis, autonomic neuropathy, peripheral neuropathy, retinopathy, nephropathy ? Exacerbating factors include: none ? Current diabetes regimen is as follows: 1. levemir 34 units daily---pt only taking 14 units daily --due to low sugars overnight as low as 32. 2. novolog ratio 1:8 plus SS 1 he is checking his blood glucose 4 times daily. he does bring a log book today for review. ? LDE Blood Sugar Frequency: ? BS range: 32 to 572 ? FBS 114, 155, 240, 143, 514, 45 ? acL 91, 40/292, 380 ? acS 572 ? HS 434, 481 ? Post dinner 569, ? Hypoglycemia frequency: once weekly; does not always check but has been low as 32. ? Hypoglycemia awareness: Yes Regarding symptoms of hypoglycemia, he is is not experiencing any symptoms such as polyuria, polydipsia, nocturia or rapid weight loss or blurry vision, Overall, the patient has no acute complaints at this time. PAST MEDICAL HISTORY Diagnosis Date - Anxiety and depression - Asthma - Diabetic neuropathy (HCC) Seeing Dr. Land - Edentulous - Emphysema lung (HCC) early stages - Fatty liver - Gastroparesis - GERD (gastroesophageal reflux disease) - Hyperlipidemia - Hypertension - IBS (irritable bowel syndrome) previously seeing GI - Myasthenia gravis (HCC) Seeing Dr. Land-neurology - Pulmonary nodules - Shingles - Tobacco use - Type I diabetes mellitus (HCC) Seeing Dr. Fam PAST SURGICAL HISTORY Procedure Laterality Date - COLONOSCOPY 09/08/2015 poor prep - procedure aborted - EGD 01/04/2016 [facility] - PAST SURGICAL HISTORY OF Thymectomy - PAST SURGICAL HISTORY OF Cholecystectomy - PAST SURGICAL HISTORY OF teeth extraction-total FAMILY HISTORY Problem Relation Age of Onset - Cancer Father lung - other (Other) Daughter Depression/Psych - Thyroid Maternal Grandmother - Cancer Paternal Grandmother lung - Cancer Paternal Grandfather throat, brain - Hypertension Mother - other (thyroid issues) Mother Social History Marital status: Single Spouse name: Years of education: Number of children: 2 Social History Main Topics Smoking status: Current Every Day Smoker Packs/day: 1.00 Years: 26.00 Types: Cigarettes Smokeless tobacco: Never Used Comment: down from 2 packs per day Alcohol use: Yes Comment: rarely Drug use: Yes Frequency: 3.0 times per week Types: Marijuana Comment: now down to once a week Sexual activity: Not Currently Allergies As of Date: 04/13/2018 Allergen Noted Reaction LEVAQUIN [LEVOFLOXACIN] 12/07/2017 Other: See Comments LISINOPRIL 11/14/2017 Other: See Comments LOSARTAN 12/07/2017 Swelling NICODERM 10/03/2016 Rash REGLAN [METOCLOPRAMIDE HCL] 07/26/2016 Hives Fully Assessed 04/13/2018 Current Outpatient Prescriptions: insulin detemir U-100 (LEVEMIR FLEXTOUCH U-100 INSULN) 100 unit/mL (3 mL) inpn injection Inject subcutaneous 14 units daily. Disp: 15 Pen Rfl: 0 insulin aspart U-100 (NOVOLOG FLEXPEN U-100 INSULIN) 100 unit/mL inpn Take 1 unit per 8 grams of carbs breakfast and lunch; 1:7 at dinner +SSI. 150-200: 1unit, 201-250: 2units, 251-300: 3units, 301-350: 4units, 351-400:5units, TDD 30units. Disp: 30 mL Rfl: 1 metoprolol tartrate, short acting, (LOPRESSOR) 100 mg tablet Take 1 tablet by mouth twice daily. Disp: 60 tablet Rfl: 5 promethazine (PHENERGAN) 25 mg tablet Take 1 tablet by mouth every 6 hours as needed for Nausea/Vomiting. Disp: 120 tablet Rfl: 6 ondansetron orally disintegrating (ZOFRAN ODT) 8 mg disintegrating tablet Take 1 tablet by mouth every 8 hours as needed. Disp: 90 tablet Rfl: 6 gabapentin (NEURONTIN) 300 mg capsule Take 1 capsule by mouth four times daily. Disp: 120 capsule Rfl: 3 Omeprazole 40 mg capsule Take 1 capsule by mouth once daily. Disp: 30 capsule Rfl: 1 budesonide-formoterol (SYMBICORT) 160-4.5 mcg/actuation inhaler Inhale 2 Puffs as instructed twice daily. Disp: 3 Inhaler Rfl: 1 albuterol HFA (VENTOLIN HFA) 90 mcg/actuation inhaler Inhale 2 Puffs as instructed every 4 hours as needed. Disp: 3 Inhaler Rfl: 1 hydroCHLOROthiazide (HYDRODIURIL, ESIDRIX) 50 mg tablet Take 1 tablet by mouth once daily. Disp: 90 tablet Rfl: 0 montelukast (SINGULAIR) 10 mg tablet Take 1 tablet by mouth daily at bedtime. Disp: 90 tablet Rfl: 1 furosemide (LASIX) 20 mg tablet Take 1 tablet by mouth once daily. Disp: 30 tablet Rfl: 2 blood sugar diagnostic (TRUE METRIX GLUCOSE TEST STRIP) test strip Use as instructed 3-4 times daily. Disp: 400 Strip Rfl: 1 lancets (TRUEPLUS LANCETS) 33 gauge misc Use as directed 3- 4 times daily. Disp: 400 Each Rfl: 1 Insulin [place], Disposable, (BD ULTRA-FINE DAYA PEN NEEDLE) 32 gauge x 5/32 ndle Use one needle for each dose. 4/day. Disp: 400 Each Rfl: 1 sertraline (ZOLOFT) 100 mg tablet Take 1 tablet by mouth once daily. Disp: 90 tablet Rfl: 1 Compression Knee Highs KNEE HIGH COMPRESSION STOCKINGS 20- 30 MM. DX: EDEMA Disp: 1 Device Rfl: 1 pyridostigmine (MESTINON) 60 mg tablet Take 1 tablet by mouth three times daily. As needed based on activity. Dr. Land, [facility] Disp: Rfl: buPROPion SR (WELLBUTRIN SR) 150 mg 12 hr tablet Take 1 tablet by mouth twice daily. Disp: 60 tablet Rfl: 2 gabapentin (NEURONTIN) 300 mg capsule Take one capsule by mouth three times daily, as directed. DX: E11.40 Disp: 270 capsule Rfl: 1 mupirocin (BACTROBAN) 2 % ointment Disp: Rfl: cyclobenzaprine (FLEXERIL) 10 mg tablet Take 1 tablet by mouth three times daily as needed for Muscle Spasm. Dr. Swanson Disp: Rfl: trimethobenzamide (TIGAN) 300 mg capsule Take 1 capsule by mouth three times daily. (Patient not taking: Reported on 12/18/2017 ) Disp: 30 capsule Rfl: 6 sucralfate (CARAFATE) 1 gram tablet Take 1 g by mouth four times daily. Disp: Rfl: MULTIVITAMIN ORAL Take by mouth. Disp: Rfl: No current facility-administered medications for this visit. REVIEW OF SYSTEMS General: no fever and no chills Skin: dry skin Cardiac: denies chest pain, heart palpitations or orthopnea Pulmonary: denies wheezing or exertional dyspnea but cough with smoking PHYSICAL EXAMINATION BP 140/88 Pulse 107 Ht 167.5 cm (5' 5.95) Wt 67.6 kg (149 lb) SpO2 100% BMI 24.09 kg/m2 Physical Exam Constitutional: He is oriented to person, place, and time and well-developed, well-nourished, and in no distress. No distress. HENT: Head: Normocephalic and atraumatic. Eyes: Right eye exhibits no discharge. Left eye exhibits no discharge. Cardiovascular: Normal rate and regular rhythm. Pulmonary/Chest: Effort normal and breath sounds normal. Neurological: He is alert and oriented to person, place, and time. Skin: Skin is warm and dry. He is not diaphoretic. Psychiatric: Mood, memory, affect and judgment normal. Per podiatry--appt next week. DATA Creatinine Date Value Ref Range Status 03/06/2018 1.32 (H) 0.73 - 1.22 mg/dL Final Hemoglobin A1C (%) Date Value 03/06/2018 12.0 ) No components found for: URINEALBUMIN Cholesterol, Total (mg/dL) Date Value 04/25/2017 330 HDL Cholesterol (mg/dL) Date Value 04/25/2017 72 LDL Cholesterol (mg/dL) Date Value 04/25/2017 203 Triglyceride (mg/dL) Date Value 04/25/2017 276 IMPRESSION: Mr. Kaiser is a 42 year old male here for evaluation of DM Type 1 complicated by hypertension, retinopathy, autonomic neuropathy and gastroparesis, hypoglycemia RECOMMENDATIONS: (E10.8, E10.65) Diabetes mellitus type 1, uncontrolled, with complications (HCC) (primary encounter diagnosis) Comment: Complications of: retinopathy, gastroparesis, peripheral neuropathy, autonomic neuropathy, nephropathy. Glycemic control is above goal. Readings are variable. Adjustments made as able today. He would benefit from a pump with sensor and wants to use Medtr[employer]. Info given for Tate Crockett, [employer] Rep. Plan: COMP METABOLIC PANEL, LIPID PANEL BASIC, ALBUMIN/CREAT RATIO RND UR, insulin detemir U-100 (LEVEMIR FLEXTOUCH U-100 INSULN) 100 unit/mL (3 mL) inpn injection, insulin aspart U-100 (NOVOLOG FLEXPEN U-100 INSULIN) 100 unit/mL inpn Levemir 14 units daily. Novolog Breakfast ratio 1:8 Lunch ratio 1:8 Dinner ratio 1:7; Lower to 1:6 if still high at bedtime. Plus the same correction of 1:50 for sugars over 150. Send readings in a week. Contact Tate Crockett regarding a pump. Follow up in 3 months (I10) Essential hypertension Comment: BP with improvement when repeated. Plan: Stop smoking. Follow up with PCP/nephrology (K31.84) Gastroparesis Comment/Plan: Stable (E16.2) Hypoglycemia Comment: Blood sugars as low as 32. Plan: He would benefit from pump with sensor. Given Tate Crockett contact info. (Z72.0) Tobacco use Comment/Plan: Encourage cessation; he is trying to quit Vesna Harrison APRN, ASSOCIATE DIRECTOR-C Endocrinology [facility] Medical Office [facility]/[address], [address] [place] [address] Fax: Vesna Harrison APRN.PICKER / PACKER 04/13/2018 9:29 AM Addendum 1. Levemir 14 units daily. 2. Novolog Breakfast ratio 1:8 Lunch ratio 1:8 Dinner ratio 1:7; Lower to 1:6 if still high at bedtime. Plus the same correction of 1:50 for sugars over 150. 3. Send readings in a week. 4. Contact Tate Bon regarding a pump. 5. Follow up in 3 months Vesna Harrison APRN, NP-C Endocrinology [facility] Medical Office [facility]/[address], [address] [place], [place] [address] Fax: Referring Provider: SELF [200] Allergies As of Date: 04/13/2018 Noted Allergy Reaction LEVAQUIN (LEVOFLOXACIN) 12/07/2017 14 - Other: See Comments Comments: Aching in joints LISINOPRIL 11/14/2017 14 - Other: See Comments Comments: Lip swelling, possible angioedema, face swelling LOSARTAN 12/07/2017 7 - Swelling Comments: Face swelling NICODERM 10/03/2016 2 - Rash REGLAN (METOCLOPRAMIDE HCL) 07/26/2016 4 - Hives Date Reviewed: 04/13/2018 Reviewed by: Vesna (Kirill) Gauri - Fully Assessed Reason for Visit: Diabetes [34] Primary Visit Diagnosis:Diabetes mellitus type 1, uncontrolled, with complications (HCC) [E10.8, E10.65] Other Visit Diagnoses:Essential hypertension [I10] Gastroparesis [K31.84] Hypoglycemia [E16.2] Tobacco use [Z72.0] Order(s):COMP METABOLIC PANEL [SQCMP] Order #: [id number] FUTURE LIPID PANEL BASIC [SQLIPB] Order #: [id number] FUTURE ALBUMIN/CREAT RATIO RND UR [SQUACR] Order #: [id number] FUTURE insulin detemir U-100 (LEVEMIR FLEXTOUCH U-100 INSULN) 100 unit/mL (3 mL) inpn injectionInject subcutaneous 14 units daily.Disp: 15 PenRfl: 0 insulin aspart U-100 (NOVOLOG FLEXPEN U-100 INSULIN) 100 unit/mL inpnTake 1 unit per 8 grams of carbs breakfast and lunch; 1:7 at dinner +SSI. 150-200: 1unit, 201-250: 2units, 251- 300: 3units, 301-350: 4units, 351-400:5units, TDD 30units.Disp: 30 mLRfl: 1 Prescriptions as of 04/13/2018 Sig: INSULIN DETEMIR (U-100) 100 U* Inject subcutaneous 14 units * INSULIN ASPART U-100 100 UNI* Take 1 unit per 8 grams of ca* METOPROLOL TARTRATE 100 MG TA* Take 1 tablet by mouth twice * PROMETHAZINE 25 MG TABLET Take 1 tablet by mouth every * ONDANSETRON 8 MG DISINTEGRATI* Take 1 tablet by mouth every * GABAPENTIN 300 MG CAPSULE Take 1 capsule by mouth four * OMEPRAZOLE 40 MG CAPSULE,YONNY* Take 1 capsule by mouth once * BUDESONIDE-FORMOTEROL HFA 160* Inhale 2 Puffs as instructed * ALBUTEROL SULFATE HFA 90 MCG/* Inhale 2 Puffs as instructed * HYDROCHLOROTHIAZIDE 50 MG TAB* Take 1 tablet by mouth once d* MONTELUKAST 10 MG TABLET Take 1 tablet by mouth daily * FUROSEMIDE 20 MG TABLET Take 1 tablet by mouth once d* BLOOD SUGAR DIAGNOSTIC STRIPS Use as instructed 3-4 times d* LANCETS 33 GAUGE Use as directed 3-4 times willy* PEN NEEDLE, DIABETIC 32 GAUGE* Use one needle for each dose.* SERTRALINE 100 MG TABLET Take 1 tablet by mouth once d* COMPOUNDED PRESCRIPTION KNEE HIGH COMPRESSION STOCKIN* PYRIDOSTIGMINE BROMIDE 60 MG * Take 1 tablet by mouth three * BUPROPION HCL SR 150 MG TABLE* Take 1 tablet by mouth twice * GABAPENTIN 300 MG CAPSULE Take one capsule by mouth thr* MUPIROCIN 2 % TOPICAL OINTMENT CYCLOBENZAPRINE 10 MG TABLET Take 1 tablet by mouth three * TRIMETHOBENZAMIDE 300 MG CAPS* Take 1 capsule by mouth three* Patient not taking: Reported on 12/18/2017 SUCRALFATE 1 GRAM TABLET Take 1 g by mouth four times * MULTIVITAMIN ORAL Take by mouth. Medication notes this encounter INSULIN DETEMIR (U-100) 100 UNIT/ML (3 ML) SUBCUTANEOUS PEN >> Cj Palafox Ma 04/13/2018 8:56 AM >> CJ PALAFOX MA Apr 13, 2018 8:56 AM Taking 14 units at 10pm daily BUPROPION HCL SR 150 MG TABLET,12 HR SUSTAINED-RELEASE >> Cj Palafox Ma 04/13/2018 8:56 AM >> CJ PALAFOX MA Apr 13, 2018 8:56 AM Haven't started taking GABAPENTIN 300 MG CAPSULE >> Cj Palafox Ma 04/13/2018 8:55 AM >> CJ PALAFOX MA Apr 13, 2018 8:55 AM D/c SUCRALFATE 1 GRAM TABLET >> Cj Templekuldeep Ying 04/13/2018 8:58 AM >> CJ PALAFOX MA Apr 13, 2018 8:58 AM As needed Problem List As Of Date 04/13/2018 Noted Resolved Anxiety and depression [F41.9, F32.9] INVALID FOR* Diabetic neuropathy (HCC) [E11.40] More... Asthma [J45.909] GERD (gastroesophageal reflux disease) [K21.9] IBS (irritable bowel syndrome) [K58.9] More... Myasthenia gravis (HCC) [G70.00] More... Tobacco use [Z72.0] Type I diabetes mellitus (HCC) [E10.9] More... Hyperlipidemia [E78.5] Essential hypertension [I10] INVALID FOR* Gastroparesis [K31.84] INVALID FOR* Hypoglycemia [E16.2] INVALID FOR* Other instructions from your clinician: 1. Levemir 14 units daily. 2. Novolog Breakfast ratio 1:8 Lunch ratio 1:8 Dinner ratio 1:7; Lower to 1:6 if still high at bedtime. Plus the same correction of 1:50 for sugars over 150. 3. Send readings in a week. 4. Contact Tate Crockett regarding a pump. 5. Follow up in 3 months Vesna Harrison APRN, ASSOCIATE DIRECTOR-C Endocrinology [facility] Office [facility]/[address], [facility] [address] [place] [address] Fax: Prescriptions ordered this encounter Disp Refills Start End INSULIN DETEMIR (U-100) 100 UNIT/ML * 15 P* 0 04/13/2018 Class: Med Update Sig: Inject subcutaneous 14 units daily. INSULIN ASPART U-100 100 UNIT/ML PERES* 30 mL 1 04/13/2018 Class: Med Update Sig: Take 1 unit per 8 grams of carbs breakfast and lunch; 1:7 at dinner +SSI. 150-200: 1unit, 201-250: 2units, 251-300: 3units, 301-350: 4units, 351-400:5units, TDD 30units. Medications Discontinued During This Encounter insulin detemir U-100 (LEVEMIR FLEXT* 15 P* 0 04/09/2018 04/13/2018 Sig: Inject subcutaneous 34 units daily. Disc: Reason for discontinue is not on file. insulin aspart U-100 (NOVOLOG FLEXPE* 30 mL 1 12/21/2017 04/13/2018 Class: Med Update Sig: Take 1 unit per 8 grams of carbs +SSI. 150-200: 1unit, 201-250: 2units, 251-300: 3units, 301-350: 4units, 351-400:5units, TDD 30units. Disc: Reason for discontinue is not on file. Follow-up and Disposition History Recorded Encounter Status:Closed by VESNA HARRISON on 04/13/18 OBSOLETE Observed: 04/09/2018 Status: COMPLETED Source: [place] 12:00 AM [facility] REPOSITORY Refill (ENDMED) AMARILYS KAISER JR. ([id number]) 1975 M Date Time Provider Department 04/09/18 VESNA HARRISON (KIRILL) NATY During your visit today, we recorded the following information about you: Mabel Rendon 04/09/2018 3:16 PM Signed Has an appointment Monday with Vesna. Will run out before appointment. Pharmacy verified in [facility] Patient has been identified by name and date of : Yes Patient aware RX will be sent to pharmacy. No need to notify patient. Patient phones for refill(s): Pending Prescriptions Disp Refills INSULIN DETEMIR (U-100) 100 UNIT/ML (3 ML) SUBCUTANEOUS PEN 15 mL 0 Sig: Inject subcutaneous 34 units daily. DENY: No Date of last office visit : 12/18/2017 Date of next office visit : 04/13/2018 Last 2 Encounter Wt Readings: Date: Wt: 03/05/2018 62.6 kg (138 lb) 03/01/2018 62.1 kg (137 lb) Not applicable Please advise. Mabel Westbrook Ma 04/09/2018 3:39 PM Signed Patient requesting refills as follows: ALAYNA: 12/18/2017 NOV: 04/13/2018 Pending Prescriptions Disp Refills INSULIN DETEMIR (U-100) 100 UNIT/ML (3 ML) SUBCUTANEOUS PEN 15 Pen 0 Sig: Inject subcutaneous 34 units daily. DENY: No Please review and advise. Kaleb Harrison, PURE PAK MACHINE OPERATOR.PICKER / PACKER 04/09/2018 3:48 PM Signed Former pt of Dr. Fam. RX sent. Has appt later this week. Allergies As of Date: 04/09/2018 Noted Allergy Reaction LEVAQUIN (LEVOFLOXACIN) 12/07/2017 14 - Other: See Comments Comments: Aching in joints LISINOPRIL 11/14/2017 14 - Other: See Comments Comments: Lip swelling, possible angioedema, face swelling LOSARTAN 12/07/2017 7 - Swelling Comments: Face swelling NICODERM 10/03/2016 2 - Rash REGLAN (METOCLOPRAMIDE HCL) 07/26/2016 4 - Hives Date Reviewed: 03/05/2018 Reviewed by: Petr Paul Ma - Fully Assessed Reason for Visit: Refill Request [94] Primary Visit Diagnosis: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) [E10.21] Order(s):insulin detemir U-100 (LEVEMIR FLEXTOUCH U-100 INSULN) 100 unit/mL (3 mL) inpn injectionInject subcutaneous 34 units daily.Disp: 15 PenRfl: 0 Prescriptions as of 04/09/2018 Sig: INSULIN DETEMIR (U-100) 100 U* Inject subcutaneous 34 units * METOPROLOL TARTRATE 100 MG TA* Take 1 tablet by mouth twice * BUPROPION HCL SR 150 MG TABLE* Take 1 tablet by mouth twice * PROMETHAZINE 25 MG TABLET Take 1 tablet by mouth every * ONDANSETRON 8 MG DISINTEGRATI* Take 1 tablet by mouth every * Patient not taking: Reported on 03/05/2018 GABAPENTIN 300 MG CAPSULE Take 1 capsule by mouth four * OMEPRAZOLE 40 MG CAPSULE,YONNY* Take 1 capsule by mouth once * BUDESONIDE-FORMOTEROL HFA 160* Inhale 2 Puffs as instructed * ALBUTEROL SULFATE HFA 90 MCG/* Inhale 2 Puffs as instructed * HYDROCHLOROTHIAZIDE 50 MG TAB* Take 1 tablet by mouth once d* MONTELUKAST 10 MG TABLET Take 1 tablet by mouth daily * FUROSEMIDE 20 MG TABLET Take 1 tablet by mouth once d* BLOOD SUGAR DIAGNOSTIC STRIPS Use as instructed 3-4 times d* LANCETS 33 GAUGE Use as directed 3-4 times willy* PEN NEEDLE, DIABETIC 32 GAUGE* Use one needle for each dose.* GABAPENTIN 300 MG CAPSULE Take one capsule by mouth thr* INSULIN ASPART U-100 100 UNI* Take 1 unit per 8 grams of ca* MUPIROCIN 2 % TOPICAL OINTMENT SERTRALINE 100 MG TABLET Take 1 tablet by mouth once d* COMPOUNDED PRESCRIPTION KNEE HIGH COMPRESSION STOCKIN* PYRIDOSTIGMINE BROMIDE 60 MG * Take 1 tablet by mouth three * CYCLOBENZAPRINE 10 MG TABLET Take 1 tablet by mouth three * TRIMETHOBENZAMIDE 300 MG CAPS* Take 1 capsule by mouth three* Patient not taking: Reported on 12/18/2017 SUCRALFATE 1 GRAM TABLET Take 1 g by mouth four times * MULTIVITAMIN ORAL Take by mouth. Problem List As Of Date 04/09/2018 Noted Resolved Anxiety and depression [F41.9, F32.9] INVALID FOR* Hypertension [I10] Diabetic neuropathy (HCC) [E11.40] More... Asthma [J45.909] GERD (gastroesophageal reflux disease) [K21.9] IBS (irritable bowel syndrome) [K58.9] More... Myasthenia gravis ([facility]) [G70.00] More... Tobacco use [Z72.0] Type I diabetes mellitus (HCC) [E10.9] More... Hyperlipidemia [E78.5] Prescriptions ordered this encounter Disp Refills Start End INSULIN DETEMIR (U-100) 100 UNIT/ML * 15 P* 0 04/09/2018 Sig: Inject subcutaneous 34 units daily. Medications Discontinued During This Encounter insulin detemir U-100 (LEVEMIR FLEXT* 15 mL 0 12/21/2017 04/09/2018 Class: Med Update Sig: Inject subcutaneous 34 units daily. Disc: Reason for discontinue is not on file. Encounter Status:Closed by YOSI HARRISONANY on 04/09/18 MRI PANC/COMPA WO/W Observed: 03/07/2018 Status: F Source: [facility] 3:49 PM [facility] [place] REPOSITORY * * *Final Report* * * DATE OF EXAM: Mar 07 2018 3:49PM CHIP 0730 - MRI PANC/COMPA WO/W IVCON / PROCEDURE REASON: Generalized abdominal pain * * * * Physician Interpretation * * * * MRI ABDOMEN WITHOUT AND WITH IV CONTRAST HISTORY: Elevated alkaline phosphatase and GGT. ?History of ulcerative colitis, evaluation for possible associated primary sclerosing cholangitis. TECHNIQUE: Magnet: 1.5T scanner. Multiplanar MRI with multiple sequences before and after contrast. Contrast: IV: 13ml ml of Dotarem COMPARISON: CT liver 01/03/2018. RESULT: Liver: Normal morphology. Small amount of focal fat along falciform ligament. No mass. Biliary: No bile duct dilation. Gallbladder is absent. Specifically there are no morphologic changes to suggest primary sclerosing cholangitis. Spleen: No mass. No splenomegaly. Pancreas: No mass or duct dilation. Adrenals: No mass. Kidneys: No solid or cystic mass. No hydronephrosis. GI tract: There is gastric wall edema, particularly in the antrum. Lymph nodes: No abdominal lymphadenopathy. Mesentery / Peritoneum / Retroperitoneum: No ascites or mass. Vasculature: The celiac axis and SMA are patent. The portal vein and branches, splenic vein, SMV, and hepatic veins are patent. No abdominal aortic artery aneurysm. Bones/Soft Tissues: No significant finding. Lower chest: Unremarkable. IMPRESSION: GASTRIC WALL EDEMA, PARTICULAR IN THE ANTRUM, SUGGESTING GASTRITIS. NO CHANGES TO SUGGEST PSC, CLINICALLY QUERIED. Sales Producer: PSCB Transcribe Date/Time: Mar 07 2018 4:10P Dictated by : MADELIN AMEZQUITA MD This examination was interpreted and the report reviewed and electronically signed by: BALDEV BOOKER MD on Mar 07 2018 4:54PM EST [id number] PROGRESS Observed: 03/07/2018 Status: COMPLETED Source: [place] 3:35 PM [facility] REPOSITORY HNO ID: [id number] Author: Cecelia () Willi Holt Service: (none) Author Type: Grapple Operator Type: Progress Notes Filed: 03/07/2018 3:36 PM Note Text: Radiology Service Progress Note PATIENT NAME: Amarilys Kaiser Jr. DATE OF SERVICE: March 07, 2018 TIME: 3:35 PM PATIENT IDENTITY VERIFICATION COMPLETED USING TWO (2) METHODS: Patient confirmed name verbally and Date of . PATIENT GENDER DATA: Male PATIENT RELEVANT IMPLANT DATA REVIEWED: Yes CONTRAST INDUCED NEPHROPATHY RISK FACTORS: Not applicable CREATININE: Creatinine Date Value Ref Range Status 03/06/2018 1.32 (H) 0.73 - 1.22 mg/dL Final 12/07/2017 1.11 0.73 - 1.22 mg/dL Final 11/07/2017 1.51 (H) 0.73 - 1.22 mg/dL Final eGFR-All Other Races Date Value Ref Range Status 03/06/2018 59 . Final Comment: eGFR (Estimated GFR) Units of measure: mL/min/1.73 meters squared eGFR is derived from the reexpressed MDRD Study equation using the following parameters: serum creatinine, age, gender and race. The creatinine assay has been calibrated to be traceable to IDMS. An eGFR <60 mL/min/1.73m2 for >3 months is consistent with chronic kidney disease. Refer to KDOQI guidelines for clinical interpretation. In patients with unstable renal function, e.g. those with acute kidney injury, the eGFR may not accurately reflect actual GFR. eGFR- Date Value Ref Range Status 03/06/2018 >60 Final P.O.C.T. RESULTS: N/A March 07, 2018 RADIOLOGIST NOTIFIED?: No ALLERGIES: Reviewed and unchanged CONTRAST ALLERGY: NO. PERIPHERAL IV ACCESS: Ambulatory: IV type: A peripheral IV was started in the Left antecubital site with a Angio cath: 22 gauge., Site assessment: Clean,Dry and Intact, Site disposition Discontinued RADIOLOGY DEPARTMENT: MR; Exam(s) Completed: Body: Pancreas/Biliary SIGNED BY: RT Nieves March 07, 2018 3:35 PM ALDOLASE Collected: 03/06/2018 Status: F Source: [place] 4:27 PM [facility] REPOSITORY TYPE CODE TESTS RESULT OUT OF REFERENCE UNITS RANGE LAB ALD 1.2-7.6 U/L High Aldolase 10.4 Result Comment: This test was developed and its performance characteristics determined by [facility] [place] ([facility] It has not been cleared or approved by the FDA. [facility] is regulated under CLIA as qualified to perform high-complexity testing. This test is used for clinical purposes. It should not be regarded as investigational or for research. Performed By: #### ALD, CRET1, CELSCR #### [facility] [employer] [address] [place], [place] [address] CREATININE Collected: 03/06/2018 Status: F Source: [place] 4:27 [facility] REPOSITORY TYPE CODE TESTS RESULT OUT OF REFERENCE UNITS RANGE LAB CRET 0.73-1.22 mg/dL High Creatinine 1.32 LAB GFRAA eGFR- >60 Amer. LAB GFRNAA . eGFR-All Other Races 59 Result Comment: eGFR (Estimated GFR) Units of measure: mL/min/1.73 meters squared eGFR is derived from the reexpressed MDRD Study equation using the following parameters: serum creatinine, age, gender and race. The creatinine assay has been calibrated to be traceable to IDMS. An eGFR <60 mL/min/1.73m2 for >3 months is consistent with chronic kidney disease. Refer to KDOQI guidelines for clinical interpretation. In patients with unstable renal function, e.g. those with acute kidney injury, the eGFR may not accurately reflect actual GFR. Performed By: #### ALD, CRET1, CELSCR #### [facility] [employer] [address] [place], [place] [address] CELIAC SCR W REFLEX Collected: 03/06/2018 Status: F Source: [place] 4:27 [facility] REPOSITORY TYPE CODE TESTS RESULT OUT OF REFERENCE UNITS RANGE LAB IGA 78-391 mg/dL IgA 370 LAB TGLUTA <20 Units Transglutaminase IgA 8 Result Comment: Negative : < 20 Units Weak Positive : 20 - 30 Units Moderate Pos to Strong Pos: >30 Units The following results were obtained with the [employer] QUANTA Lite h-tTG IgA SU. h-tTG IgA values obtained with different manufacturers' assay methods may not be used interchangeably. The magnitude of th e reported IgA levels cannot be correlated to an endpoint titer. LAB CASIMIROTER No serologic evidence of Interpretation No celiac disease. serologic evidence of celiac disease. Performed By: #### ALD, CRET1, CELSCR #### [facility] [employer] [address] [place], [place] [address] HEMOGLOBIN A1C Collected: 03/06/2018 Status: F Source: [place] 4:27 PM [facility] REPOSITORY TYPE CODE TESTS RESULT OUT OF REFERENCE UNITS RANGE LAB HGBA1C 4.3-5.6 % High Hemoglobin A1c 12.0 Result Comment: [place] [employer] guidelines indicate that patients with HgbA1c in the range 5.7-6.4% are at increased risk for development of diabetes, and intervention by lifestyle modification may be beneficial. HgbA1c greater or equal to 6.5% is considered diagnostic of diabetes. LAB HBA0 mg/dL Est. Average Glucose 298 Result Comment: eAG: (Estimated average glucose) is a calculated value from HgbA1c and is medical representative of the average blood glucose level in the last 2-3 month period. Performed By: #### HBA1C #### [facility] [employer] [address], [place] [address] PROGRESS Observed: 03/05/2018 Status: COMPLETED Source: [place] 8:02 AM [facility] REPOSITORY HNO ID: [id number] Author: Cassie Squires) Gladys Service: (none) Author Type: Physician Type: Progress Notes Filed: 03/05/2018 8:31 AM Note Text: Chief Complaint Patient presents with: follow up lab work HPI Amarilys Kaiser Jr. is a 42 year old male who presents here today for Above Complaints. Patient was to have labs done as ordered by Dr. Rankin. Ordered celiac panel, aldolase, and MRCP to r/o [facility]. Has not done as of this time, will go down before he leave building today to have drawn. Patient complaining of continued leg swelling with left worse than right, present for months. Taking HCTZ and lasix as prescribed. LE swelling down from last OV in November without new pain in his calves. Denies chest pain, palpitations, SOB. Has not been lying flat. So cannot say about orthopnea. Admits to coughing and wheezing more the last 2-3 weeks. Using rescue inhaler 2-3 times per day. Still taking Symbicort BID as prescribed and Singulair at night for allergies. Denies fever, SOB, URI symptoms. Has chronic nausea and diarrhea. Symptoms unchanged in the last 2 weeks. Smoking 1 1/2 packs of cigarettes per day. Would like to quit smoking Past medical history, appointments, medications, allergies reviewed. Previous Medical History PAST MEDICAL HISTORY Diagnosis Date - Anxiety and depression - Asthma - Diabetic neuropathy (HCC) Seeing Dr. Land - Edentulous - Emphysema lung (HCC) early stages - Fatty liver - Gastroparesis - GERD (gastroesophageal reflux disease) - Hyperlipidemia - Hypertension - IBS (irritable bowel syndrome) previously seeing GI - Myasthenia gravis (HCC) Seeing Dr. Land-neurology - Pulmonary nodules - Shingles - Tobacco use - Type I diabetes mellitus (HCC) Seeing Dr. Fam Previous Surgical History PAST SURGICAL HISTORY Procedure Laterality Date - COLONOSCOPY 09/08/2015 poor prep - procedure aborted - EGD 01/04/2016 [facility] - PAST SURGICAL HISTORY OF Thymectomy - PAST SURGICAL HISTORY OF Cholecystectomy - PAST SURGICAL HISTORY OF teeth extraction-total Family History FAMILY HISTORY Problem Relation Age of Onset - Cancer Father lung - other (Other) Daughter Depression/Psych - Thyroid Maternal Grandmother - Cancer Paternal Grandmother lung - Cancer Paternal Grandfather throat, brain - Hypertension Mother - other (thyroid issues) Mother Patient Allergies ALLERGIES Allergen Reactions - Levaquin [Levofloxa* Other: See Comments Aching in joints - Lisinopril Other: See Comments Lip swelling, possible angioedema, face swelling - Losartan Swelling Face swelling - Nicoderm Rash - Reglan [Metoclopram* Hives Current Medications Current Outpatient Prescriptions on File Prior to Visit: promethazine (PHENERGAN) 25 mg tablet Take 1 tablet by mouth every 6 hours as needed for Nausea/Vomiting. gabapentin (NEURONTIN) 300 mg capsule Take 1 capsule by mouth four times daily. Omeprazole 40 mg capsule Take 1 capsule by mouth once daily. metoprolol tartrate, short acting, (LOPRESSOR) 50 mg tablet Take 1 tablet by mouth twice daily. budesonide-formoterol (SYMBICORT) 160-4.5 mcg/actuation inhaler Inhale 2 Puffs as instructed twice daily. albuterol HFA (VENTOLIN HFA) 90 mcg/actuation inhaler Inhale 2 Puffs as instructed every 4 hours as needed. hydroCHLOROthiazide (HYDRODIURIL, ESIDRIX) 50 mg tablet Take 1 tablet by mouth once daily. furosemide (LASIX) 20 mg tablet Take 1 tablet by mouth once daily. blood sugar diagnostic (TRUE METRIX GLUCOSE TEST STRIP) test strip Use as instructed 3-4 times daily. lancets (TRUEPLUS LANCETS) 33 gauge misc Use as directed 3- 4 times daily. Insulin [place], Disposable, (BD ULTRA-FINE DAYA PEN NEEDLE) 32 gauge x 5/32 ndle Use one needle for each dose. 4/day. gabapentin (NEURONTIN) 300 mg capsule Take one capsule by mouth three times daily, as directed. DX: E11.40 insulin aspart U-100 (NOVOLOG FLEXPEN U-100 INSULIN) 100 unit/mL inpn Take 1 unit per 8 grams of carbs +SSI. 150-200: 1unit, 201-250: 2units, 251-300: 3units, 301-350: 4units, 351-400:5units, TDD 30units. insulin detemir U-100 (LEVEMIR FLEXTOUCH U-100 INSULN) 100 unit/mL (3 mL) inpn injection Inject subcutaneous 34 units daily. sertraline (ZOLOFT) 100 mg tablet Take 1 tablet by mouth once daily. Compression Knee Highs KNEE HIGH COMPRESSION STOCKINGS 20- 30 MM. DX: EDEMA pyridostigmine (MESTINON) 60 mg tablet Take 1 tablet by mouth three times daily. As needed based on activity. Dr. Land, [facility] sucralfate (CARAFATE) 1 gram tablet Take 1 g by mouth four times daily. ondansetron orally disintegrating (ZOFRAN ODT) 8 mg disintegrating tablet Take 1 tablet by mouth every 8 hours as needed. (Patient not taking: Reported on 03/05/2018 ) montelukast (SINGULAIR) 10 mg tablet Take 1 tablet by mouth daily at bedtime. mupirocin (BACTROBAN) 2 % ointment cyclobenzaprine (FLEXERIL) 10 mg tablet Take 1 tablet by mouth three times daily as needed for Muscle Spasm. Dr. Swanson trimethobenzamide (TIGAN) 300 mg capsule Take 1 capsule by mouth three times daily. (Patient not taking: Reported on 12/18/2017 ) MULTIVITAMIN ORAL Take by mouth. No current facility-administered medications on file prior to visit. Social History Social History Marital status: Single Spouse name: Years of education: Number of children: 2 Social History Main Topics Smoking status: Current Every Day Smoker Packs/day: 1.00 Years: 26.00 Types: Cigarettes Smokeless tobacco: Never Used Comment: down from 2 packs per day Alcohol use: Yes Comment: rarely Drug use: Yes Frequency: 3.0 times per week Types: Marijuana Comment: now down to once a week Sexual activity: Not Currently Review of Symptoms REVIEW OF SYSTEMS See HPI EXAM: BP 174/98 Pulse 90 Resp 16 Wt 62.6 kg (138 lb) BMI 22.27 kg/m? General Appearance: Well appearing, alert, in no acute distress, well-hydrated, well nourished.. Skin: Skin color, texture, turgor normal, no suspicious rashes or lesions. Lungs: positive findings: mild wheezing , rhonchi with moderate air entry Heart: RRR without murmur, gallop, or rubs. No ectopy. Abdomen: Normal abdominal exam, Abdomen soft, non-tender. Bowel sounds normal. No masses, organomegaly. Extremities: Edema: 1+ edema to mid whitt on right, 2+ edema on left with positive Dalila's sign. No erythema. 37.5 cm on left compared to 33.5 cm on right. Health Maintenance List BP CONTROLLED (<130/80) due on 1992 HBA1C due on 02/07/2018 DIABETIC FOOT EXAM due on 04/03/2018 DIABETES MED ADHERENCE due on 03/27/2018 STEROID INHALER ADHERENCE due on 03/27/2018 LDL CHOLESTEROL due on 04/25/2018 URINE ALBUMIN:CREATININE RATIO due on 11/07/2018 ANNUAL PCP TEAM CHRONIC DISEASE VISIT due on 12/21/2018 DILATED RETINAL EXAM due on 02/14/2019 DTAP,TDAP,TD(2 - Td) due on 10/03/2026 ONE PNEUMOVAX PRIOR TO AGE 65 Completed INFLUENZA Completed Data reviewed Component Latest Ref Rng AND Units 11/07/2017 12/07/2017 12/26/2017 Protein, Total 6.3 - 8.0 g/dL 5.8 (L) 5.8 (L) 5.9 (L) Albumin 3.9 - 4.9 g/dL 2.6 (L) 2.5 (L) 2.7 (L) Calcium 8.5 - 10.2 mg/dL 9.0 8.5 Bilirubin, Total 0.2 - 1.3 mg/dL <0.2 (L) <0.2 (L) <0.2 (L) Alkaline Phosphatase 38 - 113 U/L 209 (H) 351 (H) 319 (H) AST 14 - 40 U/L 35 98 (H) 26 Glucose 74 - 99 mg/dL 250 (H) 312 (H) BUN 9 - 24 mg/dL 24 17 Creatinine 0.73 - 1.22 mg/dL 1.51 (H) 1.11 Sodium 136 - 144 mmol/L 132 (L) 132 (L) Potassium 3.7 - 5.1 mmol/L 4.1 3.7 Chloride 97 - 105 mmol/L 92 (L) 95 (L) CO2 22 - 30 mmol/L 25 25 Anion Gap 9 - 18 mmol/L 15 12 ALT 10 - 54 U/L 45 81 (H) 55 (H) eGFR- >60 >60 eGFR-All Other Races . 51 >60 WBC 3.70 - 11.00 k/uL 10.24 RBC 4.20 - 6.00 m/uL 4.56 Hemoglobin 13.0 - 17.0 g/dL 13.1 Hematocrit 39.0 - 51.0 % 40.2 MCV 80.0 - 100.0 fL 88.2 MCH 26.0 - 34.0 pG 28.7 MCHC 30.5 - 36.0 g/dL 32.6 RDW-CV 11.5 - 15.0 % 13.0 Platelet Count 150 - 400 k/uL 384 MPV 9.0 - 12.7 fL 11.5 Absolute nRBC <0.01 k/uL <0.01 Bilirubin, Conjug <0.2 mg/dL <0.2 Creatinine, Ur Random (UCRR) 20 - 300 mg/dL 86.8 Albumin, Urine Random 0.0 - 23.0 mg/L >4,400.0 (H) Albumin/Creat Ratio 0 - 30 mg/g Not calculated Iron 41 - 186 ug/dL 28 (L) TIBC 232 - 386 ug/dL 212 (L) Transferrin Saturation 15 - 57 % 13 (L) Hemoglobin A1C 4.3 - 5.6 % 11.3 (H) Estimated Average Glucose mg/dL 278 MAURO by EIA, Qual Negative Negative MAURO by EIA OD Ratio 0.3 Hep A Ab, Total Negative Positive (A) Alpha 1 Antitrypsin 90 - 200 mg/dL 133 Smooth Muscle Ab Panel Negative Negative Ferritin 30.3 - 565.7 ng/mL 264.6 Ceruloplasmin 15 - 30 mg/dL 20 Mitochondrial Ab Panel Negative Negative GGT 10 - 70 U/L 307 (H) ASSESSMENT/PLAN: 1. Essential hypertension - ICD9: 401.9, ICD10: I10 (primary diagnosis) - poor control - Increase metoprolol - Encouraged dietary sodium restriction/DASH diet - Recommended regular aerobic exercise. - Follow up in 2 week for BP recheck. - Reviewed risks of HTN and principles of treatment - Goal of BP <140/90 - METOPROLOL TARTRATE 100 MG TABLET 2. Lower extremity edema - ICD9: 782.3, ICD10: R60.0 Continue HCTZ and lasix. Obtain venous duplex SUMANTH. If negative for DVT, increase lasix. - US LEG VEIN DVT UNL VAS LAB 3. Moderate persistent asthma with (acute) exacerbation - ICD9: 493.92, ICD10: J45.41 Start prednisone burst for 5 days. Monitor glucose readings with steroid as will cause elevation. Continue symbicort and albuterol PRN. Advised smoking cessation. - PREDNISONE 20 MG TABLET 4. Gastroesophageal reflux disease, esophagitis presence not specified - ICD9: 530.81, ICD10: K21.9 - Continue treatment with Prilosec 40 mg QD 5. Tobacco use - ICD9: 305.1, ICD10: Z72.0 - Cessation encouraged. - Physiologic and physical aspects of tobacco addiction as well as strategies for quitting were discussed. - Counseling was given focusing on the harmful effects of this addiction especially given the patient's medical condition(s) which will be worsened because of the chemicals in tobacco. - Prescription for bupropion (Wellbutrin) given - BUPROPION HCL SR 150 MG TABLET,12 HR SUSTAINED-RELEASE Cassie Graham MD CNOV Observed: 03/05/2018 Status: COMPLETED Source: [place] 8:00 AM [facility] REPOSITORY Office Visit (FAMPWS) AMARILYS KAISER JR. ([id number]) 1975 M Date Time Provider Department 03/05/18 8:00 AM CASSIE GRAHAM) FAMPWS During your visit today, we recorded the following information about you: Pulse Respiration Blood pressure Weight 90/minute 16/minute 154/104 62.6 kg Cassie Graham MD 03/05/2018 8:31 AM Signed Chief Complaint Patient presents with: follow up lab work HPI Amarilys Kaiser Jr. is a 42 year old male who presents here today for Above Complaints. Patient was to have labs done as ordered by Dr. Rankin. Ordered celiac panel, aldolase, and MRCP to r/o [facility]. Has not done as of this time, will go down before he leave building today to have drawn. Patient complaining of continued leg swelling with left worse than right, present for months. Taking HCTZ and lasix as prescribed. LE swelling down from last OV in November without new pain in his calves. Denies chest pain, palpitations, SOB. Has not been lying flat. So cannot say about orthopnea. Admits to coughing and wheezing more the last 2-3 weeks. Using rescue inhaler 2-3 times per day. Still taking Symbicort BID as prescribed and Singulair at night for allergies. Denies fever, SOB, URI symptoms. Has chronic nausea and diarrhea. Symptoms unchanged in the last 2 weeks. Smoking 1 1/2 packs of cigarettes per day. Would like to quit smoking Past medical history, appointments, medications, allergies reviewed. Previous Medical History PAST MEDICAL HISTORY Diagnosis Date - Anxiety and depression - Asthma - Diabetic neuropathy (HCC) Seeing Dr. Lnad - Edentulous - Emphysema lung (HCC) early stages - Fatty liver - Gastroparesis - GERD (gastroesophageal reflux disease) - Hyperlipidemia - Hypertension - IBS (irritable bowel syndrome) previously seeing GI - Myasthenia gravis (HCC) Seeing Dr. Land-neurology - Pulmonary nodules - Shingles - Tobacco use - Type I diabetes mellitus (HCC) Seeing Dr. Fam Previous Surgical History PAST SURGICAL HISTORY Procedure Laterality Date - COLONOSCOPY 09/08/2015 poor prep - procedure aborted - EGD 01/04/2016 [facility] - PAST SURGICAL HISTORY OF Thymectomy - PAST SURGICAL HISTORY OF Cholecystectomy - PAST SURGICAL HISTORY OF teeth extraction-total Family History FAMILY HISTORY Problem Relation Age of Onset - Cancer Father lung - other (Other) Daughter Depression/Psych - Thyroid Maternal Grandmother - Cancer Paternal Grandmother lung - Cancer Paternal Grandfather throat, brain - Hypertension Mother - other (thyroid issues) Mother Patient Allergies ALLERGIES Allergen Reactions - Levaquin [Levofloxa* Other: See Comments Aching in joints - Lisinopril Other: See Comments Lip swelling, possible angioedema, face swelling - Losartan Swelling Face swelling - Nicoderm Rash - Reglan [Metoclopram* Hives Current Medications Current Outpatient Prescriptions on File Prior to Visit: promethazine (PHENERGAN) 25 mg tablet Take 1 tablet by mouth every 6 hours as needed for Nausea/Vomiting. gabapentin (NEURONTIN) 300 mg capsule Take 1 capsule by mouth four times daily. Omeprazole 40 mg capsule Take 1 capsule by mouth once daily. metoprolol tartrate, short acting, (LOPRESSOR) 50 mg tablet Take 1 tablet by mouth twice daily. budesonide-formoterol (SYMBICORT) 160-4.5 mcg/actuation inhaler Inhale 2 Puffs as instructed twice daily. albuterol HFA (VENTOLIN HFA) 90 mcg/actuation inhaler Inhale 2 Puffs as instructed every 4 hours as needed. hydroCHLOROthiazide (HYDRODIURIL, ESIDRIX) 50 mg tablet Take 1 tablet by mouth once daily. furosemide (LASIX) 20 mg tablet Take 1 tablet by mouth once daily. blood sugar diagnostic (TRUE METRIX GLUCOSE TEST STRIP) test strip Use as instructed 3-4 times daily. lancets (TRUEPLUS LANCETS) 33 gauge misc Use as directed 3- 4 times daily. Insulin [place], Disposable, (BD ULTRA-FINE DAYA PEN NEEDLE) 32 gauge x 5/32 ndle Use one needle for each dose. 4/day. gabapentin (NEURONTIN) 300 mg capsule Take one capsule by mouth three times daily, as directed. DX: E11.40 insulin aspart U-100 (NOVOLOG FLEXPEN U-100 INSULIN) 100 unit/mL inpn Take 1 unit per 8 grams of carbs +SSI. 150-200: 1unit, 201-250: 2units, 251-300: 3units, 301-350: 4units, 351-400:5units, TDD 30units. insulin detemir U-100 (LEVEMIR FLEXTOUCH U-100 INSULN) 100 unit/mL (3 mL) inpn injection Inject subcutaneous 34 units daily. sertraline (ZOLOFT) 100 mg tablet Take 1 tablet by mouth once daily. Compression Knee Highs KNEE HIGH COMPRESSION STOCKINGS 20- 30 MM. DX: EDEMA pyridostigmine (MESTINON) 60 mg tablet Take 1 tablet by mouth three times daily. As needed based on activity. Dr. Land, [facility] sucralfate (CARAFATE) 1 gram tablet Take 1 g by mouth four times daily. ondansetron orally disintegrating (ZOFRAN ODT) 8 mg disintegrating tablet Take 1 tablet by mouth every 8 hours as needed. (Patient not taking: Reported on 03/05/2018 ) montelukast (SINGULAIR) 10 mg tablet Take 1 tablet by mouth daily at bedtime. mupirocin (BACTROBAN) 2 % ointment cyclobenzaprine (FLEXERIL) 10 mg tablet Take 1 tablet by mouth three times daily as needed for Muscle Spasm. Dr. Swanson trimethobenzamide (TIGAN) 300 mg capsule Take 1 capsule by mouth three times daily. (Patient not taking: Reported on 12/18/2017 ) MULTIVITAMIN ORAL Take by mouth. No current facility-administered medications on file prior to visit. Social History Social History Marital status: Single Spouse name: Years of education: Number of children: 2 Social History Main Topics Smoking status: Current Every Day Smoker Packs/day: 1.00 Years: 26.00 Types: Cigarettes Smokeless tobacco: Never Used Comment: down from 2 packs per day Alcohol use: Yes Comment: rarely Drug use: Yes Frequency: 3.0 times per week Types: Marijuana Comment: now down to once a week Sexual activity: Not Currently Review of Symptoms REVIEW OF SYSTEMS See HPI EXAM: BP 174/98 Pulse 90 Resp 16 Wt 62.6 kg (138 lb) BMI 22.27 kg/m? General Appearance: Well appearing, alert, in no acute distress, well-hydrated, well nourished.. Skin: Skin color, texture, turgor normal, no suspicious rashes or lesions. Lungs: positive findings: mild wheezing , rhonchi with moderate air entry Heart: RRR without murmur, gallop, or rubs. No ectopy. Abdomen: Normal abdominal exam, Abdomen soft, non-tender. Bowel sounds normal. No masses, organomegaly. Extremities: Edema: 1+ edema to mid whitt on right, 2+ edema on left with positive Dalila's sign. No erythema. 37.5 cm on left compared to 33.5 cm on right. Health Maintenance List BP CONTROLLED (<130/80) due on 1992 HBA1C due on 02/07/2018 DIABETIC FOOT EXAM due on 04/03/2018 DIABETES MED ADHERENCE due on 03/27/2018 STEROID INHALER ADHERENCE due on 03/27/2018 LDL CHOLESTEROL due on 04/25/2018 URINE ALBUMIN:CREATININE RATIO due on 11/07/2018 ANNUAL PCP TEAM CHRONIC DISEASE VISIT due on 12/21/2018 DILATED RETINAL EXAM due on 02/14/2019 DTAP,TDAP,TD(2 - Td) due on 10/03/2026 ONE PNEUMOVAX PRIOR TO AGE 65 Completed INFLUENZA Completed Data reviewed Component Latest Ref Rng AND Units 11/07/2017 12/07/2017 12/26/2017 Protein, Total 6.3 - 8.0 g/dL 5.8 (L) 5.8 (L) 5.9 (L) Albumin 3.9 - 4.9 g/dL 2.6 (L) 2.5 (L) 2.7 (L) Calcium 8.5 - 10.2 mg/dL 9.0 8.5 Bilirubin, Total 0.2 - 1.3 mg/dL <0.2 (L) <0.2 (L) <0.2 (L) Alkaline Phosphatase 38 - 113 U/L 209 (H) 351 (H) 319 (H) AST 14 - 40 U/L 35 98 (H) 26 Glucose 74 - 99 mg/dL 250 (H) 312 (H) BUN 9 - 24 mg/dL 24 17 Creatinine 0.73 - 1.22 mg/dL 1.51 (H) 1.11 Sodium 136 - 144 mmol/L 132 (L) 132 (L) Potassium 3.7 - 5.1 mmol/L 4.1 3.7 Chloride 97 - 105 mmol/L 92 (L) 95 (L) CO2 22 - 30 mmol/L 25 25 Anion Gap 9 - 18 mmol/L 15 12 ALT 10 - 54 U/L 45 81 (H) 55 (H) eGFR- >60 >60 eGFR-All Other Races . 51 >60 WBC 3.70 - 11.00 k/uL 10.24 RBC 4.20 - 6.00 m/uL 4.56 Hemoglobin 13.0 - 17.0 g/dL 13.1 Hematocrit 39.0 - 51.0 % 40.2 MCV 80.0 - 100.0 fL 88.2 MCH 26.0 - 34.0 pG 28.7 MCHC 30.5 - 36.0 g/dL 32.6 RDW-CV 11.5 - 15.0 % 13.0 Platelet Count 150 - 400 k/uL 384 MPV 9.0 - 12.7 fL 11.5 Absolute nRBC <0.01 k/uL <0.01 Bilirubin, Conjug <0.2 mg/dL <0.2 Creatinine, Ur Random (UCRR) 20 - 300 mg/dL 86.8 Albumin, Urine Random 0.0 - 23.0 mg/L >4,400.0 (H) Albumin/Creat Ratio 0 - 30 mg/g Not calculated Iron 41 - 186 ug/dL 28 (L) TIBC 232 - 386 ug/dL 212 (L) Transferrin Saturation 15 - 57 % 13 (L) Hemoglobin A1C 4.3 - 5.6 % 11.3 (H) Estimated Average Glucose mg/dL 278 MAURO by EIA, Qual Negative Negative MAURO by EIA OD Ratio 0.3 Hep A Ab, Total Negative Positive (A) Alpha 1 Antitrypsin 90 - 200 mg/dL 133 Smooth Muscle Ab Panel Negative Negative Ferritin 30.3 - 565.7 ng/mL 264.6 Ceruloplasmin 15 - 30 mg/dL 20 Mitochondrial Ab Panel Negative Negative GGT 10 - 70 U/L 307 (H) ASSESSMENT/PLAN: 1. Essential hypertension - ICD9: 401.9, ICD10: I10 (primary diagnosis) - poor control - Increase metoprolol - Encouraged dietary sodium restriction/DASH diet - Recommended regular aerobic exercise. - Follow up in 2 week for BP recheck. - Reviewed risks of HTN and principles of treatment - Goal of BP <140/90 - METOPROLOL TARTRATE 100 MG TABLET 2. Lower extremity edema - ICD9: 782.3, ICD10: R60.0 Continue HCTZ and lasix. Obtain venous duplex SUMANTH. If negative for DVT, increase lasix. - US LEG VEIN DVT UNL VAS LAB 3. Moderate persistent asthma with (acute) exacerbation - ICD9: 493.92, ICD10: J45.41 Start prednisone burst for 5 days. Monitor glucose readings with steroid as will cause elevation. Continue symbicort and albuterol PRN. Advised smoking cessation. - PREDNISONE 20 MG TABLET 4. Gastroesophageal reflux disease, esophagitis presence not specified - ICD9: 530.81, ICD10: K21.9 - Continue treatment with Prilosec 40 mg QD 5. Tobacco use - ICD9: 305.1, ICD10: Z72.0 - Cessation encouraged. - Physiologic and physical aspects of tobacco addiction as well as strategies for quitting were discussed. - Counseling was given focusing on the harmful effects of this addiction especially given the patient's medical condition(s) which will be worsened because of the chemicals in tobacco. - Prescription for bupropion (Wellbutrin) given - BUPROPION HCL SR 150 MG TABLET,12 HR SUSTAINED-RELEASE Cassie Graham MD Referring Provider: CASSIE GRAHAM) [[id number]] Allergies As of Date: 03/05/2018 Noted Allergy Reaction LEVAQUIN (LEVOFLOXACIN) 12/07/2017 14 - Other: See Comments Comments: Aching in joints LISINOPRIL 11/14/2017 14 - Other: See Comments Comments: Lip swelling, possible angioedema, face swelling LOSARTAN 12/07/2017 7 - Swelling Comments: Face swelling NICODERM 10/03/2016 2 - Rash REGLAN (METOCLOPRAMIDE HCL) 07/26/2016 4 - Hives Date Reviewed: 03/05/2018 Reviewed by: Petr Paul Ma - Fully Assessed Reason for Visit: follow up lab work [Other] Primary Visit Diagnosis:Essential hypertension [I10] Other Visit Diagnoses:Lower extremity edema [R60.0] Moderate persistent asthma with (acute) exacerbation [J45.41] Gastroesophageal reflux disease, esophagitis presence not specified [K21.9] Tobacco use [Z72.0] Order(s):metoprolol tartrate, short acting, (LOPRESSOR) 100 mg tabletTake 1 tablet by mouth twice daily.Disp: 60 tabletRfl: 5 buPROPion SR (WELLBUTRIN SR) 150 mg 12 hr tabletTake 1 tablet by mouth twice daily.Disp: 60 tabletRfl: 2 US LEG VEIN DVT UNL VAS LAB [[id number]] Order #: [id number] FUTURE predniSONE (DELTASONE) 20 mg tabletTake 2 tablets by mouth once daily for 5 days.Disp: 10 tabletRfl: 0 Prescriptions as of 03/05/2018 Sig: METOPROLOL TARTRATE 100 MG TA* Take 1 tablet by mouth twice * PROMETHAZINE 25 MG TABLET Take 1 tablet by mouth every * GABAPENTIN 300 MG CAPSULE Take 1 capsule by mouth four * OMEPRAZOLE 40 MG CAPSULE,YONNY* Take 1 capsule by mouth once * BUDESONIDE-FORMOTEROL HFA 160* Inhale 2 Puffs as instructed * ALBUTEROL SULFATE HFA 90 MCG/* Inhale 2 Puffs as instructed * HYDROCHLOROTHIAZIDE 50 MG TAB* Take 1 tablet by mouth once d* FUROSEMIDE 20 MG TABLET Take 1 tablet by mouth once d* BLOOD SUGAR DIAGNOSTIC STRIPS Use as instructed 3-4 times d* LANCETS 33 GAUGE Use as directed 3-4 times willy* PEN NEEDLE, DIABETIC 32 GAUGE* Use one needle for each dose.* GABAPENTIN 300 MG CAPSULE Take one capsule by mouth thr* INSULIN ASPART U-100 100 UNI* Take 1 unit per 8 grams of ca* INSULIN DETEMIR (U-100) 100 U* Inject subcutaneous 34 units * SERTRALINE 100 MG TABLET Take 1 tablet by mouth once d* COMPOUNDED PRESCRIPTION KNEE HIGH COMPRESSION STOCKIN* PYRIDOSTIGMINE BROMIDE 60 MG * Take 1 tablet by mouth three * SUCRALFATE 1 GRAM TABLET Take 1 g by mouth four times * BUPROPION HCL SR 150 MG TABLE* Take 1 tablet by mouth twice * PREDNISONE 20 MG TABLET Take 2 tablets by mouth once * ONDANSETRON 8 MG DISINTEGRATI* Take 1 tablet by mouth every * Patient not taking: Reported on 03/05/2018 MONTELUKAST 10 MG TABLET Take 1 tablet by mouth daily * MUPIROCIN 2 % TOPICAL OINTMENT CYCLOBENZAPRINE 10 MG TABLET Take 1 tablet by mouth three * TRIMETHOBENZAMIDE 300 MG CAPS* Take 1 capsule by mouth three* Patient not taking: Reported on 12/18/2017 MULTIVITAMIN ORAL Take by mouth. Problem List As Of Date 03/05/2018 Noted Resolved Anxiety and depression [F41.9, F32.9] INVALID FOR* Hypertension [I10] Diabetic neuropathy (HCC) [E11.40] More... Asthma [J45.909] GERD (gastroesophageal reflux disease) [K21.9] IBS (irritable bowel syndrome) [K58.9] More... Myasthenia gravis (HCC) [G70.00] More... Tobacco use [Z72.0] Type I diabetes mellitus (HCC) [E10.9] More... Hyperlipidemia [E78.5] Prescriptions ordered this encounter Disp Refills Start End METOPROLOL TARTRATE 100 MG TABLET 60 t* 5 03/05/2018 Route: ORAL Sig: Take 1 tablet by mouth twice daily. BUPROPION HCL SR 150 MG TABLET,12 HR* 60 t* 2 03/05/2018 Route: ORAL Sig: Take 1 tablet by mouth twice daily. PREDNISONE 20 MG TABLET 10 t* 0 03/05/2018 03/10/2018 Route: ORAL Sig: Take 2 tablets by mouth once daily for 5 days. Medications Discontinued During This Encounter metoprolol tartrate, short acting, (* 180 * 1 01/23/2018 03/05/2018 Route: ORAL Sig: Take 1 tablet by mouth twice daily. Disc: Reason for discontinue is not on file. Disposition: Return in about 4 months (around 07/04/2018). Follow-up and Disposition History Recorded Encounter Status:Closed by CASSIE GRAHAM MD on 03/05/18 PROGRESS Observed: 03/01/2018 Status: COMPLETED Source: [place] 9:41 AM [facility] REPOSITORY HNO ID: [id number] Author: Lee Mcnamara Service: (none) Author Type: Physician Type: Progress Notes Filed: 03/01/2018 9:59 AM Note Text: FOLLOW UP VISIT CHIEF COMPLAINT Patient presents with: EST GP Mr. Kaiser is here today for follow-up of: Gastroparesis. HPI I saw this 42y/o in f/u for his GP. The constipation has resolved and he has more diarrhea. The patient has continued nausea with rare vomiting. His weight is coming back up but overall has increased. He was diagnosed with Myasthenia in 1999 and he had a thymectomy after failing imuran. Current Outpatient Prescriptions: promethazine (PHENERGAN) 25 mg tablet Take 1 tablet by mouth every 6 hours as needed for Nausea/Vomiting. Disp: 30 tablet Rfl: 0 Omeprazole 40 mg capsule Take 1 capsule by mouth once daily. Disp: 30 capsule Rfl: 1 metoprolol tartrate, short acting, (LOPRESSOR) 50 mg tablet Take 1 tablet by mouth twice daily. Disp: 180 tablet Rfl: 1 budesonide-formoterol (SYMBICORT) 160-4.5 mcg/actuation inhaler Inhale 2 Puffs as instructed twice daily. Disp: 3 Inhaler Rfl: 1 albuterol HFA (VENTOLIN HFA) 90 mcg/actuation inhaler Inhale 2 Puffs as instructed every 4 hours as needed. Disp: 3 Inhaler Rfl: 1 hydroCHLOROthiazide (HYDRODIURIL, ESIDRIX) 50 mg tablet Take 1 tablet by mouth once daily. Disp: 90 tablet Rfl: 0 montelukast (SINGULAIR) 10 mg tablet Take 1 tablet by mouth daily at bedtime. Disp: 90 tablet Rfl: 1 furosemide (LASIX) 20 mg tablet Take 1 tablet by mouth once daily. Disp: 30 tablet Rfl: 2 blood sugar diagnostic (TRUE METRIX GLUCOSE TEST STRIP) test strip Use as instructed 3-4 times daily. Disp: 400 Strip Rfl: 1 lancets (TRUEPLUS LANCETS) 33 gauge misc Use as directed 3- 4 times daily. Disp: 400 Each Rfl: 1 Insulin [place], Disposable, (BD ULTRA-FINE DAYA PEN NEEDLE) 32 gauge x 5/32 ndle Use one needle for each dose. 4/day. Disp: 400 Each Rfl: 1 gabapentin (NEURONTIN) 300 mg capsule Take one capsule by mouth three times daily, as directed. DX: E11.40 Disp: 270 capsule Rfl: 1 insulin aspart U-100 (NOVOLOG FLEXPEN U-100 INSULIN) 100 unit/mL inpn Take 1 unit per 8 grams of carbs +SSI. 150-200: 1unit, 201-250: 2units, 251-300: 3units, 301-350: 4units, 351-400:5units, TDD 30units. Disp: 30 mL Rfl: 1 insulin detemir U-100 (LEVEMIR FLEXTOUCH U-100 INSULN) 100 unit/mL (3 mL) inpn injection Inject subcutaneous 34 units daily. Disp: 15 mL Rfl: 0 sertraline (ZOLOFT) 100 mg tablet Take 1 tablet by mouth once daily. Disp: 90 tablet Rfl: 1 Compression Knee Highs KNEE HIGH COMPRESSION STOCKINGS 20- 30 MM. DX: EDEMA Disp: 1 Device Rfl: 1 pyridostigmine (MESTINON) 60 mg tablet Take 1 tablet by mouth three times daily. As needed based on activity. Dr. Land, [facility] Disp: Rfl: ondansetron orally disintegrating (ZOFRAN ODT) 8 mg disintegrating tablet Take 8 mg by mouth as needed. Disp: Rfl: sucralfate (CARAFATE) 1 gram tablet Take 1 g by mouth four times daily. Disp: Rfl: mupirocin (BACTROBAN) 2 % ointment Disp: Rfl: cyclobenzaprine (FLEXERIL) 10 mg tablet Take 1 tablet by mouth three times daily as needed for Muscle Spasm. Dr. Swanson Disp: Rfl: trimethobenzamide (TIGAN) 300 mg capsule Take 1 capsule by mouth three times daily. (Patient not taking: Reported on 12/18/2017 ) Disp: 30 capsule Rfl: 6 MULTIVITAMIN ORAL Take by mouth. Disp: Rfl: No current facility-administered medications for this visit. ALLERGIES Allergen Reactions - Levaquin [Levofloxa* Other: See Comments Aching in joints - Lisinopril Other: See Comments Lip swelling, possible angioedema, face swelling - Losartan Swelling Face swelling - Nicoderm Rash - Reglan [Metoclopram* Hives Social History Marital status: Single Spouse name: Years of education: Number of children: 2 Social History Main Topics Smoking status: Current Every Day Smoker Packs/day: 1.00 Years: 26.00 Types: Cigarettes Smokeless tobacco: Never Used Comment: down from 2 packs per day Alcohol use: Yes Comment: rarely Drug use: Yes Frequency: 3.0 times per week Types: Marijuana Comment: now down to once a week Sexual activity: Not Currently Medical History: No changes since last visit. REVIEW OF SYSTEMS: GENERAL: weight stable, no fevers. CARDIOVASCULAR: No chest pain, no edema RESPIRATORY: No dyspnea : neg DRESS CUTTER: na The remainder of the review of systems are negative. Reviewed with patient during visit today. PHYSICAL EXAMINATION: BP 159/99 Pulse 79 Wt 137 lb (62.1kg) GENERAL APPEARANCE: thin no acute. SKIN: Skin color, texture, turgor normal. No rashes or lesions. EYES: Conjunctiva normal without icterus. OROPHARYNX: lips, mucosa, and tongue normal, teeth and gums normal NECK: Supple, full range of motion, no lymphadenopathy, normal thyroid, no carotid bruits and no JVD LUNGS: Normal breath sounds, Clear to auscultation, No wheezes, No crackles. HEART:Normal PMI, Regular rate and rhythm, Normal heart sounds, S1 and S2 and No murmurs. NEURO: Alert and oriented in no acute distress. ABDOMEN: Normal bowel sounds, abdomen flat with no distention, Soft, non-tender, no hepatomegaly. no palpable masses, no abdominal bruits, no rebound and no rigidity. EXTREMITIES:Extremities normal, No deformities, No skin discoloration, No edema . Assessment Encounter Diagnosis ICD-10-CM 1. Myasthenia gravis (HCC) G70.00 CONSULT TO NEUROMUSCULAR MEDIC 2. Gastroparesis due to secondary diabetes (HCC) E13.43 CAPSULE ENDOSCOPY SMART gabapentin (NEURONTIN) 300 mg capsule 3. 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 ([id number]) 1975 M Date Time Provider Department 03/01/18 9:30 AM LEE MCNAMARA G[facility] During your visit today, we recorded the following information about you: Pulse Blood pressure Weight 79/minute 159/99 62.1 kg Lee Mcnamara DO 03/01/2018 9:59 AM Signed FOLLOW UP VISIT CHIEF COMPLAINT Patient presents with: EST GP Mr. Kaiser is here today for follow-up of: Gastroparesis. HPI I saw this 42y/o in f/u for his GP. The constipation has resolved and he has more diarrhea. The patient has continued nausea with rare vomiting. His weight is coming back up but overall has increased. He was diagnosed with Myasthenia in 1999 and he had a thymectomy after failing imuran. Current Outpatient Prescriptions: promethazine (PHENERGAN) 25 mg tablet Take 1 tablet by mouth every 6 hours as needed for Nausea/Vomiting. Disp: 30 tablet Rfl: 0 Omeprazole 40 mg capsule Take 1 capsule by mouth once daily. Disp: 30 capsule Rfl: 1 metoprolol tartrate, short acting, (LOPRESSOR) 50 mg tablet Take 1 tablet by mouth twice daily. Disp: 180 tablet Rfl: 1 budesonide-formoterol (SYMBICORT) 160-4.5 mcg/actuation inhaler Inhale 2 Puffs as instructed twice daily. Disp: 3 Inhaler Rfl: 1 albuterol HFA (VENTOLIN HFA) 90 mcg/actuation inhaler Inhale 2 Puffs as instructed every 4 hours as needed. Disp: 3 Inhaler Rfl: 1 hydroCHLOROthiazide (HYDRODIURIL, ESIDRIX) 50 mg tablet Take 1 tablet by mouth once daily. Disp: 90 tablet Rfl: 0 montelukast (SINGULAIR) 10 mg tablet Take 1 tablet by mouth daily at bedtime. Disp: 90 tablet Rfl: 1 furosemide (LASIX) 20 mg tablet Take 1 tablet by mouth once daily. Disp: 30 tablet Rfl: 2 blood sugar diagnostic (TRUE METRIX GLUCOSE TEST STRIP) test strip Use as instructed 3-4 times daily. Disp: 400 Strip Rfl: 1 lancets (TRUEPLUS LANCETS) 33 gauge misc Use as directed 3- 4 times daily. Disp: 400 Each Rfl: 1 Insulin [place], Disposable, (BD ULTRA-FINE DAYA PEN NEEDLE) 32 gauge x 5/32 ndle Use one needle for each dose. 4/day. Disp: 400 Each Rfl: 1 gabapentin (NEURONTIN) 300 mg capsule Take one capsule by mouth three times daily, as directed. DX: E11.40 Disp: 270 capsule Rfl: 1 insulin aspart U-100 (NOVOLOG FLEXPEN U-100 INSULIN) 100 unit/mL inpn Take 1 unit per 8 grams of carbs +SSI. 150-200: 1unit, 201-250: 2units, 251-300: 3units, 301-350: 4units, 351-400:5units, TDD 30units. Disp: 30 mL Rfl: 1 insulin detemir U-100 (LEVEMIR FLEXTOUCH U-100 INSULN) 100 unit/mL (3 mL) inpn injection Inject subcutaneous 34 units daily. Disp: 15 mL Rfl: 0 sertraline (ZOLOFT) 100 mg tablet Take 1 tablet by mouth once daily. Disp: 90 tablet Rfl: 1 Compression Knee Highs KNEE HIGH COMPRESSION STOCKINGS 20- 30 MM. DX: EDEMA Disp: 1 Device Rfl: 1 pyridostigmine (MESTINON) 60 mg tablet Take 1 tablet by mouth three times daily. As needed based on activity. Dr. Land, [facility] Disp: Rfl: ondansetron orally disintegrating (ZOFRAN ODT) 8 mg disintegrating tablet Take 8 mg by mouth as needed. Disp: Rfl: sucralfate (CARAFATE) 1 gram tablet Take 1 g by mouth four times daily. Disp: Rfl: mupirocin (BACTROBAN) 2 % ointment Disp: Rfl: cyclobenzaprine (FLEXERIL) 10 mg tablet Take 1 tablet by mouth three times daily as needed for Muscle Spasm. Dr. Swanson Disp: Rfl: trimethobenzamide (TIGAN) 300 mg capsule Take 1 capsule by mouth three times daily. (Patient not taking: Reported on 12/18/2017 ) Disp: 30 capsule Rfl: 6 MULTIVITAMIN ORAL Take by mouth. Disp: Rfl: No current facility-administered medications for this visit. ALLERGIES Allergen Reactions - Levaquin [Levofloxa* Other: See Comments Aching in joints - Lisinopril Other: See Comments Lip swelling, possible angioedema, face swelling - Losartan Swelling Face swelling - Nicoderm Rash - Reglan [Metoclopram* Hives Social History Marital status: Single Spouse name: Years of education: Number of children: 2 Social History Main Topics Smoking status: Current Every Day Smoker Packs/day: 1.00 Years: 26.00 Types: Cigarettes Smokeless tobacco: Never Used Comment: down from 2 packs per day Alcohol use: Yes Comment: rarely Drug use: Yes Frequency: 3.0 times per week Types: Marijuana Comment: now down to once a week Sexual activity: Not Currently Medical History: No changes since last visit. REVIEW OF SYSTEMS: GENERAL: weight stable, no fevers. CARDIOVASCULAR: No chest pain, no edema RESPIRATORY: No dyspnea : neg DRESS CUTTER: na The remainder of the review of systems are negative. Reviewed with patient during visit today. PHYSICAL EXAMINATION: BP 159/99 Pulse 79 Wt 137 lb (62.1kg) GENERAL APPEARANCE: thin no acute. SKIN: Skin color, texture, turgor normal. No rashes or lesions. EYES: Conjunctiva normal without icterus. OROPHARYNX: lips, mucosa, and tongue normal, teeth and gums normal NECK: Supple, full range of motion, no lymphadenopathy, normal thyroid, no carotid bruits and no JVD LUNGS: Normal breath sounds, Clear to auscultation, No wheezes, No crackles. HEART:Normal PMI, Regular rate and rhythm, Normal heart sounds, S1 and S2 and No murmurs. NEURO: Alert and oriented in no acute distress. ABDOMEN: Normal bowel sounds, abdomen flat with no distention, Soft, non-tender, no hepatomegaly. no palpable masses, no abdominal bruits, no rebound and no rigidity. EXTREMITIES:Extremities normal, No deformities, No skin discoloration, No edema . Assessment Encounter Diagnosis ICD-10-CM 1. Myasthenia gravis (HCC) G70.00 CONSULT TO NEUROMUSCULAR MEDIC 2. Gastroparesis due to secondary diabetes (HCC) E13.43 CAPSULE ENDOSCOPY SMART gabapentin (NEURONTIN) 300 mg capsule 3. Other diabetic neurological complication associated with type 2 diabetes mellitus (HCC) E11.49 gabapentin (NEURONTIN) 300 mg capsule Lee Mcnamara DO 03/01/2018 Referring Provider: SELF [[id number]] Allergies As of Date: 03/01/2018 Noted Allergy Reaction LEVAQUIN (LEVOFLOXACIN) 12/07/2017 14 - Other: See Comments Comments: Aching in joints LISINOPRIL 11/14/2017 14 - Other: See Comments Comments: Lip swelling, possible angioedema, face swelling LOSARTAN 12/07/2017 7 - Swelling Comments: Face swelling NICODERM 10/03/2016 2 - Rash REGLAN (METOCLOPRAMIDE HCL) 07/26/2016 4 - Hives Date Reviewed: 03/01/2018 Reviewed by: Lee Mcnamara - Fully Assessed Reason for Visit: EST GP [Other] Primary Visit Diagnosis:Myasthenia gravis (HCC) [G70.00] Other Visit Diagnoses:Gastroparesis due to secondary diabetes (HCC) [E13.43] Other diabetic neurological complication associated with type 2 diabetes mellitus (HCC) [E11.49] Order(s):CONSULT TO NEUROMUSCULAR MEDIC [[id number]] Order #: [id number]: 1 CAPSULE ENDOSCOPY SMART [[id number]] Order #: [id number] FUTURE promethazine (PHENERGAN) 25 mg tabletTake 1 tablet by mouth every 6 hours as needed for Nausea/Vomiting.Disp: 120 tabletRfl: 6 ondansetron orally disintegrating (ZOFRAN ODT) 8 mg disintegrating tabletTake 1 tablet by mouth every 8 hours as needed.Disp: 90 tabletRfl: 6 gabapentin (NEURONTIN) 300 mg capsuleTake 1 capsule by mouth four times daily.Disp: 120 capsuleRfl: 3 Prescriptions as of 03/01/2018 Sig: PROMETHAZINE 25 MG TABLET Take 1 tablet by mouth every * ONDANSETRON 8 MG DISINTEGRATI* Take 1 tablet by mouth every * OMEPRAZOLE 40 MG CAPSULE,YONNY* Take 1 capsule by mouth once * METOPROLOL TARTRATE 50 MG TAB* Take 1 tablet by mouth twice * BUDESONIDE-FORMOTEROL HFA 160* Inhale 2 Puffs as instructed * ALBUTEROL SULFATE HFA 90 MCG/* Inhale 2 Puffs as instructed * HYDROCHLOROTHIAZIDE 50 MG TAB* Take 1 tablet by mouth once d* MONTELUKAST 10 MG TABLET Take 1 tablet by mouth daily * FUROSEMIDE 20 MG TABLET Take 1 tablet by mouth once d* BLOOD SUGAR DIAGNOSTIC STRIPS Use as instructed 3-4 times d* LANCETS 33 GAUGE Use as directed 3-4 times willy* PEN NEEDLE, DIABETIC 32 GAUGE* Use one needle for each dose.* GABAPENTIN 300 MG CAPSULE Take one capsule by mouth thr* INSULIN ASPART U-100 100 UNI* Take 1 unit per 8 grams of ca* INSULIN DETEMIR (U-100) 100 U* Inject subcutaneous 34 units * SERTRALINE 100 MG TABLET Take 1 tablet by mouth once d* COMPOUNDED PRESCRIPTION KNEE HIGH COMPRESSION STOCKIN* PYRIDOSTIGMINE BROMIDE 60 MG * Take 1 tablet by mouth three * SUCRALFATE 1 GRAM TABLET Take 1 g by mouth four times * GABAPENTIN 300 MG CAPSULE Take 1 capsule by mouth four * MUPIROCIN 2 % TOPICAL OINTMENT CYCLOBENZAPRINE 10 MG TABLET Take 1 tablet by mouth three * TRIMETHOBENZAMIDE 300 MG CAPS* Take 1 capsule by mouth three* Patient not taking: Reported on 12/18/2017 MULTIVITAMIN ORAL Take by mouth. Problem List As Of Date 03/01/2018 Noted Resolved Anxiety and depression [F41.9, F32.9] INVALID FOR* Hypertension [I10] Diabetic neuropathy ([facility]) [E11.40] More... Asthma [J45.909] GERD (gastroesophageal reflux disease) [K21.9] IBS (irritable bowel syndrome) [K58.9] More... Myasthenia gravis ([facility]) [G70.00] More... Tobacco use [Z72.0] Type I diabetes mellitus ([facility]) [E10.9] More... Hyperlipidemia [E78.5] Prescriptions ordered this encounter Disp Refills Start End PROMETHAZINE 25 MG TABLET 120 * 6 03/01/2018 Route: ORAL Sig: Take 1 tablet by mouth every 6 hours as needed for Nausea/Vomiting. ONDANSETRON 8 MG DISINTEGRATING TABL* 90 t* 6 03/01/2018 Route: ORAL Sig: Take 1 tablet by mouth every 8 hours as needed. GABAPENTIN 300 MG CAPSULE 120 * 3 03/01/2018 03/01/2019 Route: ORAL Sig: Take 1 capsule by mouth four times daily. Medications Discontinued During This Encounter promethazine (PHENERGAN) 25 mg tablet 30 t* 0 02/16/2018 03/01/2018 Route: ORAL Sig: Take 1 tablet by mouth every 6 hours as needed for Nausea/Vomiting. Disc: Reason for discontinue is not on file. ondansetron orally disintegrating (Z* 03/01/2018 Class: Historical Med Route: ORAL Sig: Take 8 mg by mouth as needed. Disc: Reason for discontinue is not on file. Encounter Status:Closed by LEE MCNAMARA DO on 03/01/18 CNOV Observed: 02/26/2018 Status: COMPLETED Source: [place] 8:00 AM [facility] REPOSITORY Office Visit (VASSWS) AMARILYS KAISER JR. ([id number]) 1975 M Date Time Provider Department 02/26/18 8:00 AM JANIE GAITAN [facility] During your visit today, we recorded the following information about you: Pulse Blood pressure 102/minute 143/100 Janie Gaitan, DO 02/26/2018 9:04 AM Signed VASCULAR SURGERY INITIAL CONSULT SERVICE DATE: 02/26/2018 SERVICE TIME: 7:57 AM PRIMARY CARE PHYSICIAN: Cassie Graham MD Consult requested for an opinion regarding the evaluation and treatment of the above. My final impression and recommendations will be communicated back to the requesting physician by way of the shared medical record or letter via US mail. CHIEF COMPLAINT/HISTORY OF PRESENT ILLNESS: Chief Complaint: PAD History of Present Illness: Amarilys Kaiser Jr. is a 42 year old male referred by Dr. Hdz for PVD follow-up and clearance for toenail removal. Mr. Kaiser states he has had pain and pressure on toenails, they have been filed by Dr. Hdz, however, patient still having pain. He reports most of the discomfort on his right foot great toe and third toe. Patient reports history of DMI, HTN, HLD. He states he does have occasional edema from the knee down- states he does wear compression stockings. He is a current smoker (2 PPD). States is unable to walk at a fast pace secondary to muscle weakness. Denies ulceration. Admits to neuropathy. PAST MEDICAL/SURGICAL/FAMILY/SOCIAL HISTORY PAST MEDICAL HISTORY Diagnosis Date - Anxiety and depression - Asthma - Diabetic neuropathy (HCC) Seeing Dr. Land - Edentulous - Emphysema lung (HCC) early stages - Fatty liver - Gastroparesis - GERD (gastroesophageal reflux disease) - Hyperlipidemia - Hypertension - IBS (irritable bowel syndrome) previously seeing GI - Myasthenia gravis (HCC) Seeing Dr. Land-neurology - Pulmonary nodules - Shingles - Tobacco use - Type I diabetes mellitus (HCC) Seeing Dr. Fam PAST SURGICAL HISTORY Procedure Laterality Date - COLONOSCOPY 09/08/2015 poor prep - procedure aborted - EGD 01/04/2016 [facility] - PAST SURGICAL HISTORY OF Thymectomy - PAST SURGICAL HISTORY OF Cholecystectomy - PAST SURGICAL HISTORY OF teeth extraction-total FAMILY HISTORY Problem Relation Age of Onset - Cancer Father lung - other (Other) Daughter Depression/Psych - Thyroid Maternal Grandmother - Cancer Paternal Grandmother lung - Cancer Paternal Grandfather throat, brain - Hypertension Mother - other (thyroid issues) Mother SOCIAL HISTORYSocial History Marital status: Single Spouse name: Years of education: Number of children: 2 Social History Main Topics Smoking status: Current Every Day Smoker Packs/day: 1.00 Years: 26.00 Types: Cigarettes Smokeless tobacco: Never Used Comment: down from 2 packs per day Alcohol use: Yes Comment: rarely Drug use: Yes Frequency: 3.0 times per week Types: Marijuana Comment: now down to once a week Sexual activity: Not Currently MEDICATIONS/ALLERGIES Current Outpatient Prescriptions: promethazine (PHENERGAN) 25 mg tablet Take 1 tablet by mouth every 6 hours as needed for Nausea/Vomiting. Disp: 30 tablet Rfl: 0 Omeprazole 40 mg capsule Take 1 capsule by mouth once daily. Disp: 30 capsule Rfl: 1 metoprolol tartrate, short acting, (LOPRESSOR) 50 mg tablet Take 1 tablet by mouth twice daily. Disp: 180 tablet Rfl: 1 budesonide-formoterol (SYMBICORT) 160-4.5 mcg/actuation inhaler Inhale 2 Puffs as instructed twice daily. Disp: 3 Inhaler Rfl: 1 albuterol HFA (VENTOLIN HFA) 90 mcg/actuation inhaler Inhale 2 Puffs as instructed every 4 hours as needed. Disp: 3 Inhaler Rfl: 1 hydroCHLOROthiazide (HYDRODIURIL, ESIDRIX) 50 mg tablet Take 1 tablet by mouth once daily. Disp: 90 tablet Rfl: 0 montelukast (SINGULAIR) 10 mg tablet Take 1 tablet by mouth daily at bedtime. Disp: 90 tablet Rfl: 1 furosemide (LASIX) 20 mg tablet Take 1 tablet by mouth once daily. Disp: 30 tablet Rfl: 2 blood sugar diagnostic (TRUE METRIX GLUCOSE TEST STRIP) test strip Use as instructed 3-4 times daily. Disp: 400 Strip Rfl: 1 lancets (TRUEPLUS LANCETS) 33 gauge misc Use as directed 3- 4 times daily. Disp: 400 Each Rfl: 1 Insulin [place], Disposable, (BD ULTRA-FINE DAYA PEN NEEDLE) 32 gauge x 5/32 ndle Use one needle for each dose. 4/day. Disp: 400 Each Rfl: 1 gabapentin (NEURONTIN) 300 mg capsule Take one capsule by mouth three times daily, as directed. DX: E11.40 Disp: 270 capsule Rfl: 1 insulin aspart U-100 (NOVOLOG FLEXPEN U-100 INSULIN) 100 unit/mL inpn Take 1 unit per 8 grams of carbs +SSI. 150-200: 1unit, 201-250: 2units, 251-300: 3units, 301-350: 4units, 351-400:5units, TDD 30units. Disp: 30 mL Rfl: 1 insulin detemir U-100 (LEVEMIR FLEXTOUCH U-100 INSULN) 100 unit/mL (3 mL) inpn injection Inject subcutaneous 34 units daily. Disp: 15 mL Rfl: 0 sertraline (ZOLOFT) 100 mg tablet Take 1 tablet by mouth once daily. Disp: 90 tablet Rfl: 1 Compression Knee Highs KNEE HIGH COMPRESSION STOCKINGS 20- 30 MM. DX: EDEMA Disp: 1 Device Rfl: 1 pyridostigmine (MESTINON) 60 mg tablet Take 1 tablet by mouth three times daily. As needed based on activity. Dr. Land, [facility] Disp: Rfl: sucralfate (CARAFATE) 1 gram tablet Take 1 g by mouth four times daily. Disp: Rfl: mupirocin (BACTROBAN) 2 % ointment Disp: Rfl: cyclobenzaprine (FLEXERIL) 10 mg tablet Take 1 tablet by mouth three times daily as needed for Muscle Spasm. Dr. Swanson Disp: Rfl: ondansetron orally disintegrating (ZOFRAN ODT) 8 mg disintegrating tablet Take 8 mg by mouth as needed. Disp: Rfl: trimethobenzamide (TIGAN) 300 mg capsule Take 1 capsule by mouth three times daily. (Patient not taking: Reported on 12/18/2017 ) Disp: 30 capsule Rfl: 6 MULTIVITAMIN ORAL Take by mouth. Disp: Rfl: No current facility-administered medications for this visit. ALLERGIES Allergen Reactions - Levaquin [Levofloxa* Other: See Comments Aching in joints - Lisinopril Other: See Comments Lip swelling, possible angioedema, face swelling - Losartan Swelling Face swelling - Nicoderm Rash - Reglan [Metoclopram* Hives REVIEW OF SYSTEMS Constitutional: No weight loss, malaise or fevers. HEENT: Negative for frequent or significant headaches, No changes in hearing or vision, no nose bleeds or other nasal problems Respiratory: Positive for chronic cough Cardiovascular: Positive for leg swelling and claudication Gatrointestinal: Positive for diarrhea Genitourinary: No history of dysuria, frequency, or incontinence and No difficulty urination, nocturia >1 times per night or hematuria Musculoskeletal: Positive for back pain Endocrine: Negative for cold or heat intolerance, polyuria, polydipsia and goiter Hematology/Lymphatic: Negative for prolonged bleeding, bruising easily or swollen nodes Neurologic: No history or headaches, syncope, paralysis, seizures or tremors Integumentary: Negative for lesions, rash, and itching. PHYSICAL EXAM VITALS: BP 143/100 Pulse 102 General: Alert and oriented, No acute distress Integumentary: Normal color, no rash, no lesions. HEENT: EOM, pupils equal, round and reactive. Cardiovascular: Normal S1 AND S2, no rubs, murmurs or gallops. No JVD., Pulse regular. Lungs: Normal breath sounds, no wheezes or crackles. Abdomen: Soft, non-tender, no rigidity. Extremities: Edema pitting bilaterally Neurological: Normal cognition and motor skills. Vascular: Posterior Tibial Right: Normal - Left: Normal Dorsalis Pedal Right: Normal - Left: Normal ASSESSMENT Peripheral arterial disease Diagnostic tests reviewed for today's visit: Most recent labs Most recent imaging PVRs- noncompressible vessels however normal waveforms, normal toe waveforms PLAN/RECOMMENDATIONS Discussed peripheral arterial disease with patient and reviewed his PVRs No evidence of large vessel disease however he does have significant calcification of his vessels We discussed from a vascular standpoint he is cleared for nail excision however discussed the importance of smoking cessation and improved blood glucose control to ensure healing of removal He may benefit from further cardiac workup to assess etiology of lower extremity edema although he may have a component of venous insufficiency secondary to muscle pump dysfunction. No no other etiology identified would recommend venous reflux testing Prescription provided for compression stockings knee high 20-30mmHg and instructed on use Will follow up in one year or sooner with concern SIGNATURE: Janie Gaitan DO PATIENT NAME: Amarilys Kaiser Jr. DATE: February 26, 2018 TIME: 7:57 AM Referring Provider: CARI HDZ [[id number]] Allergies As of Date: 02/26/2018 Noted Allergy Reaction LEVAQUIN (LEVOFLOXACIN) 12/07/2017 14 - Other: See Comments Comments: Aching in joints LISINOPRIL 11/14/2017 14 - Other: See Comments Comments: Lip swelling, possible angioedema, face swelling LOSARTAN 12/07/2017 7 - Swelling Comments: Face swelling NICODERM 10/03/2016 2 - Rash REGLAN (METOCLOPRAMIDE HCL) 07/26/2016 4 - Hives Date Reviewed: 02/26/2018 Reviewed by: Gilmar Esteves RN - Fully Assessed Reason for Visit: New Patient Evaluation [154] Primary Visit Diagnosis:Peripheral arterial disease (HCC) [I73.9] Order(s):PVR LEG W/EXC COMPA VAS LAB [[id number]] Order #: [id number] FUTURE Prescriptions as of 02/26/2018 Sig: PROMETHAZINE 25 MG TABLET Take 1 tablet by mouth every * OMEPRAZOLE 40 MG CAPSULE,YONNY* Take 1 capsule by mouth once * METOPROLOL TARTRATE 50 MG TAB* Take 1 tablet by mouth twice * BUDESONIDE-FORMOTEROL HFA 160* Inhale 2 Puffs as instructed * ALBUTEROL SULFATE HFA 90 MCG/* Inhale 2 Puffs as instructed * HYDROCHLOROTHIAZIDE 50 MG TAB* Take 1 tablet by mouth once d* MONTELUKAST 10 MG TABLET Take 1 tablet by mouth daily * FUROSEMIDE 20 MG TABLET Take 1 tablet by mouth once d* BLOOD SUGAR DIAGNOSTIC STRIPS Use as instructed 3-4 times d* LANCETS 33 GAUGE Use as directed 3-4 times willy* PEN NEEDLE, DIABETIC 32 GAUGE* Use one needle for each dose.* GABAPENTIN 300 MG CAPSULE Take one capsule by mouth thr* INSULIN ASPART U-100 100 UNI* Take 1 unit per 8 grams of ca* INSULIN DETEMIR (U-100) 100 U* Inject subcutaneous 34 units * SERTRALINE 100 MG TABLET Take 1 tablet by mouth once d* COMPOUNDED PRESCRIPTION KNEE HIGH COMPRESSION STOCKIN* PYRIDOSTIGMINE BROMIDE 60 MG * Take 1 tablet by mouth three * SUCRALFATE 1 GRAM TABLET Take 1 g by mouth four times * MUPIROCIN 2 % TOPICAL OINTMENT CYCLOBENZAPRINE 10 MG TABLET Take 1 tablet by mouth three * ONDANSETRON 8 MG DISINTEGRATI* Take 8 mg by mouth as needed. TRIMETHOBENZAMIDE 300 MG CAPS* Take 1 capsule by mouth three* Patient not taking: Reported on 12/18/2017 MULTIVITAMIN ORAL Take by mouth. Problem List As Of Date 02/26/2018 Noted Resolved Anxiety and depression [F41.9, F32.9] INVALID FOR* Hypertension [I10] Diabetic neuropathy (HCC) [E11.40] More... Asthma [J45.909] GERD (gastroesophageal reflux disease) [K21.9] IBS (irritable bowel syndrome) [K58.9] More... Myasthenia gravis (HCC) [G70.00] More... Tobacco use [Z72.0] Type I diabetes mellitus (HCC) [E10.9] More... Hyperlipidemia [E78.5] Encounter Status:Closed by JANIE GAITAN DO on 02/26/18 PROGRESS Observed: 02/26/2018 Status: COMPLETED Source: [place] 7:57 AM [facility] REPOSITORY HNO ID: [id number] Author: Janie Gaitan Service: (none) Author Type: Physician Type: Progress Notes Filed: 02/26/2018 9:04 AM Note Text: VASCULAR SURGERY INITIAL CONSULT SERVICE DATE: 02/26/2018 SERVICE TIME: 7:57 AM PRIMARY CARE PHYSICIAN: Cassie Graham MD Consult requested for an opinion regarding the evaluation and treatment of the above. My final impression and recommendations will be communicated back to the requesting physician by way of the shared medical record or letter via US mail. CHIEF COMPLAINT/HISTORY OF PRESENT ILLNESS: Chief Complaint: PAD History of Present Illness: Amarilys Kaiser Jr. is a 42 year old male referred by Dr. Hdz for PVD follow-up and clearance for toenail removal. Mr. Kaiser states he has had pain and pressure on toenails, they have been filed by Dr. Hdz, however, patient still having pain. He reports most of the discomfort on his right foot great toe and third toe. Patient reports history of DMI, HTN, HLD. He states he does have occasional edema from the knee down- states he does wear compression stockings. He is a current smoker (2 PPD). States is unable to walk at a fast pace secondary to muscle weakness. Denies ulceration. Admits to neuropathy. PAST MEDICAL/SURGICAL/FAMILY/SOCIAL HISTORY PAST MEDICAL HISTORY Diagnosis Date - Anxiety and depression - Asthma - Diabetic neuropathy (HCC) Seeing Dr. Land - Edentulous - Emphysema lung (HCC) early stages - Fatty liver - Gastroparesis - GERD (gastroesophageal reflux disease) - Hyperlipidemia - Hypertension - IBS (irritable bowel syndrome) previously seeing GI - Myasthenia gravis (HCC) Seeing Dr. Land-neurology - Pulmonary nodules - Shingles - Tobacco use - Type I diabetes mellitus (HCC) Seeing Dr. Fam PAST SURGICAL HISTORY Procedure Laterality Date - COLONOSCOPY 09/08/2015 poor prep - procedure aborted - EGD 01/04/2016 [facility] - PAST SURGICAL HISTORY OF Thymectomy - PAST SURGICAL HISTORY OF Cholecystectomy - PAST SURGICAL HISTORY OF teeth extraction-total FAMILY HISTORY Problem Relation Age of Onset - Cancer Father lung - other (Other) Daughter Depression/Psych - Thyroid Maternal Grandmother - Cancer Paternal Grandmother lung - Cancer Paternal Grandfather throat, brain - Hypertension Mother - other (thyroid issues) Mother SOCIAL HISTORYSocial History Marital status: Single Spouse name: Years of education: Number of children: 2 Social History Main Topics Smoking status: Current Every Day Smoker Packs/day: 1.00 Years: 26.00 Types: Cigarettes Smokeless tobacco: Never Used Comment: down from 2 packs per day Alcohol use: Yes Comment: rarely Drug use: Yes Frequency: 3.0 times per week Types: Marijuana Comment: now down to once a week Sexual activity: Not Currently MEDICATIONS/ALLERGIES Current Outpatient Prescriptions: promethazine (PHENERGAN) 25 mg tablet Take 1 tablet by mouth every 6 hours as needed for Nausea/Vomiting. Disp: 30 tablet Rfl: 0 Omeprazole 40 mg capsule Take 1 capsule by mouth once daily. Disp: 30 capsule Rfl: 1 metoprolol tartrate, short acting, (LOPRESSOR) 50 mg tablet Take 1 tablet by mouth twice daily. Disp: 180 tablet Rfl: 1 budesonide-formoterol (SYMBICORT) 160-4.5 mcg/actuation inhaler Inhale 2 Puffs as instructed twice daily. Disp: 3 Inhaler Rfl: 1 albuterol HFA (VENTOLIN HFA) 90 mcg/actuation inhaler Inhale 2 Puffs as instructed every 4 hours as needed. Disp: 3 Inhaler Rfl: 1 hydroCHLOROthiazide (HYDRODIURIL, ESIDRIX) 50 mg tablet Take 1 tablet by mouth once daily. Disp: 90 tablet Rfl: 0 montelukast (SINGULAIR) 10 mg tablet Take 1 tablet by mouth daily at bedtime. Disp: 90 tablet Rfl: 1 furosemide (LASIX) 20 mg tablet Take 1 tablet by mouth once daily. Disp: 30 tablet Rfl: 2 blood sugar diagnostic (TRUE METRIX GLUCOSE TEST STRIP) test strip Use as instructed 3-4 times daily. Disp: 400 Strip Rfl: 1 lancets (TRUEPLUS LANCETS) 33 gauge misc Use as directed 3- 4 times daily. Disp: 400 Each Rfl: 1 Insulin [place], Disposable, (BD ULTRA-FINE DAYA PEN NEEDLE) 32 gauge x 5/32 ndle Use one needle for each dose. 4/day. Disp: 400 Each Rfl: 1 gabapentin (NEURONTIN) 300 mg capsule Take one capsule by mouth three times daily, as directed. DX: E11.40 Disp: 270 capsule Rfl: 1 insulin aspart U-100 (NOVOLOG FLEXPEN U-100 INSULIN) 100 unit/mL inpn Take 1 unit per 8 grams of carbs +SSI. 150-200: 1unit, 201-250: 2units, 251-300: 3units, 301-350: 4units, 351-400:5units, TDD 30units. Disp: 30 mL Rfl: 1 insulin detemir U-100 (LEVEMIR FLEXTOUCH U-100 INSULN) 100 unit/mL (3 mL) inpn injection Inject subcutaneous 34 units daily. Disp: 15 mL Rfl: 0 sertraline (ZOLOFT) 100 mg tablet Take 1 tablet by mouth once daily. Disp: 90 tablet Rfl: 1 Compression Knee Highs KNEE HIGH COMPRESSION STOCKINGS 20- 30 MM. DX: EDEMA Disp: 1 Device Rfl: 1 pyridostigmine (MESTINON) 60 mg tablet Take 1 tablet by mouth three times daily. As needed based on activity. Dr. Land, [facility] Disp: Rfl: sucralfate (CARAFATE) 1 gram tablet Take 1 g by mouth four times daily. Disp: Rfl: mupirocin (BACTROBAN) 2 % ointment Disp: Rfl: cyclobenzaprine (FLEXERIL) 10 mg tablet Take 1 tablet by mouth three times daily as needed for Muscle Spasm. Dr. Swanson Disp: Rfl: ondansetron orally disintegrating (ZOFRAN ODT) 8 mg disintegrating tablet Take 8 mg by mouth as needed. Disp: Rfl: trimethobenzamide (TIGAN) 300 mg capsule Take 1 capsule by mouth three times daily. (Patient not taking: Reported on 12/18/2017 ) Disp: 30 capsule Rfl: 6 MULTIVITAMIN ORAL Take by mouth. Disp: Rfl: No current facility-administered medications for this visit. ALLERGIES Allergen Reactions - Levaquin [Levofloxa* Other: See Comments Aching in joints - Lisinopril Other: See Comments Lip swelling, possible angioedema, face swelling - Losartan Swelling Face swelling - Nicoderm Rash - Reglan [Metoclopram* Hives REVIEW OF SYSTEMS Constitutional: No weight loss, malaise or fevers. HEENT: Negative for frequent or significant headaches, No changes in hearing or vision, no nose bleeds or other nasal problems Respiratory: Positive for chronic cough Cardiovascular: Positive for leg swelling and claudication Gatrointestinal: Positive for diarrhea Genitourinary: No history of dysuria, frequency, or incontinence and No difficulty urination, nocturia >1 times per night or hematuria Musculoskeletal: Positive for back pain Endocrine: Negative for cold or heat intolerance, polyuria, polydipsia and goiter Hematology/Lymphatic: Negative for prolonged bleeding, bruising easily or swollen nodes Neurologic: No history or headaches, syncope, paralysis, seizures or tremors Integumentary: Negative for lesions, rash, and itching. PHYSICAL EXAM VITALS: BP 143/100 Pulse 102 General: Alert and oriented, No acute distress Integumentary: Normal color, no rash, no lesions. HEENT: EOM, pupils equal, round and reactive. Cardiovascular: Normal S1 AND S2, no rubs, murmurs or gallops. No JVD., Pulse regular. Lungs: Normal breath sounds, no wheezes or crackles. Abdomen: Soft, non-tender, no rigidity. Extremities: Edema pitting bilaterally Neurological: Normal cognition and motor skills. Vascular: Posterior Tibial Right: Normal - Left: Normal Dorsalis Pedal Right: Normal - Left: Normal ASSESSMENT Peripheral arterial disease Diagnostic tests reviewed for today's visit: Most recent labs Most recent imaging PVRs- noncompressible vessels however normal waveforms, normal toe waveforms PLAN/RECOMMENDATIONS Discussed peripheral arterial disease with patient and reviewed his PVRs No evidence of large vessel disease however he does have significant calcification of his vessels We discussed from a vascular standpoint he is cleared for nail excision however discussed the importance of smoking cessation and improved blood glucose control to ensure healing of removal He may benefit from further cardiac workup to assess etiology of lower extremity edema although he may have a component of venous insufficiency secondary to muscle pump dysfunction. No no other etiology identified would recommend venous reflux testing Prescription provided for compression stockings knee high 20-30mmHg and instructed on use Will follow up in one year or sooner with concern SIGNATURE: Janie Gaitan DO PATIENT NAME: Amarilys Kaiser Jr. DATE: February 26, 2018 TIME: 7:57 AM NURSING PROG Observed: 02/13/2018 Status: COMPLETED Source: [place] 6:01 PM [facility] REPOSITORY HNO ID: [id number] Author: Kadeem Delgado Service: (none) Author Type: (none) Type: Nursing Progress Note Filed: 02/13/2018 6:14 PM Note Text: Pt's right arm IV removed at this time. NURSING PROG Observed: 02/13/2018 Status: COMPLETED Source: [place] 4:45 PM [facility] REPOSITORY HNO ID: [id number] Author: Kadeem Delgado Service: (none) Author Type: (none) Type: Nursing Progress Note Filed: 02/13/2018 6:12 PM Note Text: Pt's blood pressure 176/108 at this time. Pt also complains of 7/10 pain in abdomen RUQ. Pt's RUQ soft and nontender on palpation. Dr. Hamilton aware. Orders received for oxycodone 5mg PO now. 1715: Pt's Blood pressure 169/102. Still remains in 6/[address] Hamilton aware. Dr. Hamilton in to assess pt. Dr. Hamilton and RN advise pt that if BP remains high that pt should be evaluated by emergency medicine. Pt is not agreeable to this plan. Dr. Hamilton states that if BP is lower and pain is controlled that pt may be discharged. 1730: Pt remains in 7/10 pain. Abdomen remains soft and nontender on palpation. Dr. Hamilton orders oxycodone 5mg Po now. 1800: Pt's blood pressure 150/90. Pt rates abdominal pain as 5/10 and tolerable. Pt understands discharge plan. Will discharge pt now as ordered by Dr. Hamilton. SURGICAL PATHOLOGY Observed: 02/13/2018 Status: F Source: [place] 4:00 PM [facility] REPOSITORY Specimen originated from [facility] Specimen #: [id number] Submitting Physician: ALFONSO EMERY MD FINAL DIAGNOSIS Liver, biopsy - Hepatic parenchyma with no diagnostic alteration. - No fibrosis. KL/dbb 02/14/2018. COMMENT The lobular hepatic architecture is preserved. The portal tracts are unremarkable, harboring their usual structures without evidence of granulomas, intralobular bile duct injury or ductopenia. Examination of the lobules reveal no significant steatosis or evidence of ballooning hepatocyte degeneration. Luly hyaline inclusions are not identified. Trichrome stain shows no fibrosis. PAS-D stain is negative for diagnostic inclusions. Iron stain is negative. Overall, the histologic findings demonstrate hepatic parenchyma with no diagnostic alteration. Nicolas Martinez M.D. (Electronic Signature) SPECIMEN SUBMITTED A: LIVER, BIOPSY CLINICAL DATA elevated LFT's Iron studies GROSS DESCRIPTION A. Received in formalin on Telfa gauze are multiple segments of cylindrical tissue aggregating to 4.0 x 0.1 x 0.1 cm, pacheco-brown and of a soft and friable consistency. Two cores are totally submitted in cassette A1. One core is totally submitted in cassette A2 for quantitative iron. Gross examination performed at [facility], [address] [place] [address] 02/13/2018 9:50:40 PM Date of Report: 02/14/2018 Date of Procedure: 02/13/2018 Date of Receipt: 02/13/2018 Submitted by: ALFONSO EMERY MD Location: [facility] Diagnostic interpretation performed at [place] [address]. BRIEF OP NOT Observed: 02/13/2018 Status: COMPLETED Source: [place] 3:56 PM [facility] REPOSITORY HNO ID: [id number] Author: Alfonso mEery Service: Radiology Author Type: Physician Type: Brief Op Note Filed: 02/13/2018 3:57 PM Note Text: OPERATIVE/PROCEDURE REPORT LOG ID: [id number] SURGERY/PROCEDURE DATE: 02/13/2018 INCISION/PROCEDURE START TIME: 3:23 PM INCISION CLOSE/PROCEDURE END TIME: 3:36 PM SURGEON(S)/PROCEDURALIST(S) AND LIDAR ANALYST(S): Surgeon(s) and Role: * Alfonso Emery - Primary No Additional Staff SURGERY/PROCEDURE(S): Transjugular liver biopsy and pressure measuremens ANESTHESIA: Procedural Sedation SURGERY/PROCEDURE DETAILS: RT IJV acces. Selective acces into the [facility]. Pressures measured and 3 core biopsies obtained. No ocmplicatipns. Hemostasis by manual compression, PRE-OP/PRE-PROCEDURE DIAGNOSIS: Elevated LFTS POST-OP/POST-PROCEDURE DIAGNOSIS: * No post-op diagnosis entered * ESTIMATED BLOOD LOSS: minima; SPECIMENS: Liver tissue x 3 IMPLANTABLE DEVICES: None DRAINS: None COMPLICATIONS: None PARTICIPATION IN SURGERY/PROCEDURE: I performed the entire procedure. SIGNATURE: Alfonso Emery MD PATIENT NAME: Amarilys Kaiser Jr. DATE: February 13, 2018 TIME: 3:56 PM PAGER/CONTACT #: IR TRANSJUG LIVER BX Observed: 02/13/2018 Status: F Source: [place] W/PRESS 3:36 PM [facility] REPOSITORY * * *Final Report* * * DATE OF EXAM: Feb 13 2018 3:36PM [facility] [id number] - IR TRANSJUG LIVER BX W/PRESS / PROCEDURE REASON: R74.0-Nonspecific elevation of levels of transaminase and lactic acid dehydrogen * * * * Physician Interpretation * * * * PROCEDURE: TRANSJUGULAR LIVER BIOPSY AND PRESSURES HISTORY: 42 year old male with elevated LFT's. Liver biopsy requested for further evaluation. CONSENT: Risks, benefits, treatment options, potential complications and personnel to be involved were discussed (including the risks of radiation exposure, contrast and anesthesia administration, and any equipment needed for the procedure to ensure best possible outcome) with the patient and all questions were answered and consent was obtained prior to procedure. MEDICATION RECONCILIATION: The patient's medications and allergies were reviewed in the electronic medical record and reconciled to the proposed procedure/treatment. [place]-PROCEDURE DISCUSSION: The appropriate elements of the pre-procedure discussion, safety check list and sign-out were performed. TIME OUT: A time out was performed immediately prior to procedure start with the nursing, and interventional team, correctly identifying the name, date of , procedure, anatomy (including marking of site and side if applicable), patient position, procedure consent form, relevant diagnostic and radiology test results, antibiotic administration if applicable, safety precautions, and procedure-specific equipment needs. Start of procedure (Time out): 1523 End of procedure (Sign out): 1536 Patient position: Supine Anesthesia: After establishing pulse oximetry, BP and EKG monitoring by the Radiology nurse, moderate sedation with Versed and Fentanyl was administered. Physician Intra-Service time in minutes (first dose of sedation to end of procedure): 31 Local anesthesia: 2 % lidocaine ANTIBIOTICS: None ADDITIONAL MED: IV Hydralazine to control Blood pressure ADDITIONAL MED: IV dextrose to control hypoglycemia CONTRAST DOSE: 20 CC cc of OMNIPAQUE 240 was injected into the venous system during the procedure. IMAGE GUIDANCE: Fluoroscopic and sonographic guidance was used. Ultrasound demonstrated patency of the target vein without filling defects. Access was obtained under direct sonographic visualization. A sonographic image of the vessel was obtained and placed into the permanent archive for documentation. FLUOROSCOPIC RADIATION SUMMARY: Plane A, Air Kerma: 8.8 mGy mGy Dose Area Product (DAP): 198.13 mGy*cm2 mGycm2 Fluoro Time: 2:6 min Radiation dose exceed 5 Gy: No If radiation dose exceeded 5 Gy, was counseling and instructional brochure provided:N/A ACCESS: right internal jugular vein ACCESS HEMOSTASIS: Manual Compression. TECHNIQUE: The patient was prepped and draped using all elements of maximal sterile barrier technique (cap, mask, sterile gown, sterile gloves, a large sterile sheet, hand hygiene and cutaneous antisepsis), sterile ultrasound gel and sterile ultrasound probe covers. ...After local anesthesia, access was obtained into the vein using a 21G micropuncture set which was exchanged over a wire for a long #9F sheath. Pressures were measured in the IVC and the right atrium. Using a #5F MPA catheter in conjunction with a 035 angled glide wire, access into the middle hepatic vein was obtained. Hepatic venogram was performed. Catheter was exchanged for an rena balloon over an Amplatz guide wire. Free and wedge pressures were measured in the hepatic vein. The rena balloon was removed and a #7F biopsy sheath was placed coaxially through the #9F sheath over a guide wire. The biopsy sheath and stiffener were advanced into the hepatic vein. Using a #19G biopsy gun, 3 passes and 3 core biopsies were obtained and sent to pathology in formalin. The sample was correctly labeled with the patient information. The sheaths were removed and hemostasis was obtained at the neck by direct manual compression. RESULT: Right atrial pressure measured mean of 3 mm Hg. IVC pressure measured mean of 4 mm Hg. Free hepatic pressure measured mean of 11 mm Hg. Hepatic wedge pressure measured mean of 7 mm Hg. Corrected sinusoidal gradient is calculated to be mean of 4 mm Hg. Specimens: 3 passes were made obtaining 3 cores which were sent to surgical pathology. Middle hepatic venogram demonstrated no evidence for filling defects, focal stenosis, or web formations. The patient tolerated the procedure well. There were no significant complications and no other complications during the procedure. CONCLUSION: The patient was comfortable and was transferred to the recovery room in stable condition. Estimated Blood Loss: Minimal ATTENDING RADIOLOGIST: Alfonso Emery M.D. LIDAR ANALYST: None The procedure was performed by the: attending radiologist, without an catering administrative assistant. The attending radiologist performed the following procedural activities: Entire procedure IMPRESSION: 1. SUCCESSFUL TRANSJUGULAR LIVER BIOPSY DESCRIBED ABOVE. 2. NO EVIDENCE OF PORTAL HYPERTENSION. CORRECTED SINUSOIDAL GRADIENT IS CALCULATED TO BE MEAN OF 4 MM HG. Sales Producer: MORIS Transcribe Date/Time: Feb 13 2018 6:56P Dictated by : ALFONSO EMERY MD This examination was interpreted and the report reviewed and electronically signed by: ALFONSO EMERY MD on Feb 13 2018 7:00PM EST [id number] HISTORY PHYSICAL Observed: 02/13/2018 Status: COMPLETED Source: [place] 2:43 PM [facility] REPOSITORY O ID: [id number] Author: Alfonso Emery Service: Radiology Author Type: Physician Type: HANDP Filed: 02/13/2018 2:44 PM Note Text: RADIOLOGY PROCEDURAL SEDATION HISTORY AND PHYSICAL EXAM SERVICE DATE: 02/13/2018 SERVICE TIME: 2:43 PM Subjective HPI: This is a 42 year old male who presents with elevated liver enzymes. Here for liver biopsy PROCEDURE SCHEDULED: Procedure(s) with comments: TRANSCATHETER BIOPSY (N/A) - TJL BX W PRESS PT CALLING RADIOLOGY ORDER PLACED: PAST ANESTHESIA HISTORY: No history of adverse event PAST MEDICAL HISTORY Diagnosis Date - Anxiety and depression - Asthma - Diabetic neuropathy (HCC) Seeing Dr. Land - Edentulous - Emphysema lung (HCC) early stages - Fatty liver - Gastroparesis - GERD (gastroesophageal reflux disease) - Hyperlipidemia - Hypertension - IBS (irritable bowel syndrome) previously seeing GI - Myasthenia gravis (HCC) Seeing Dr. Land-neurology - Pulmonary nodules - Shingles - Tobacco use - Type I diabetes mellitus (HCC) Seeing Dr. Fam PAST SURGICAL HISTORY Procedure Laterality Date - COLONOSCOPY 09/08/2015 poor prep - procedure aborted - EGD 01/04/2016 [facility] - PAST SURGICAL HISTORY OF Thymectomy - PAST SURGICAL HISTORY OF Cholecystectomy - PAST SURGICAL HISTORY OF teeth extraction-total Prior to Admission medications as of 02/13/18 1215 Medication Sig Last Dose Taking Omeprazole 40 mg capsule Take 1 capsule by mouth once daily. 02/12/2018 at 2200 Yes metoprolol tartrate, short acting, (LOPRESSOR) 50 mg tablet Take 1 tablet by mouth twice daily. 02/12/2018 at 0500 Yes budesonide-formoterol (SYMBICORT) 160-4.5 mcg/actuation inhaler Inhale 2 Puffs as instructed twice daily. 02/13/2018 at Unknown time Yes albuterol HFA (VENTOLIN HFA) 90 mcg/actuation inhaler Inhale 2 Puffs as instructed every 4 hours as needed. 02/12/2018 at Unknown time Yes hydroCHLOROthiazide (HYDRODIURIL, ESIDRIX) 50 mg tablet Take 1 tablet by mouth once daily. 02/13/2018 at Unknown time Yes montelukast (SINGULAIR) 10 mg tablet Take 1 tablet by mouth daily at bedtime. 02/12/2018 at 2200 Yes furosemide (LASIX) 20 mg tablet Take 1 tablet by mouth once daily. 02/13/2018 at 0700 Yes blood sugar diagnostic (TRUE METRIX GLUCOSE TEST STRIP) test strip Use as instructed 3-4 times daily. Yes gabapentin (NEURONTIN) 300 mg capsule Take one capsule by mouth three times daily, as directed. DX: E11.40 02/12/2018 at 2200 Yes insulin aspart U-100 (NOVOLOG FLEXPEN U-100 INSULIN) 100 unit/mL inpn Take 1 unit per 8 grams of carbs +SSI. 150-200: 1unit, 201-250: 2units, 251-300: 3units, 301-350: 4units, 351-400:5units, TDD 30units. 02/12/2018 at Unknown time Yes insulin detemir U-100 (LEVEMIR FLEXTOUCH U-100 INSULN) 100 unit/mL (3 mL) inpn injection Inject subcutaneous 34 units daily. 02/12/2018 at Unknown time Yes sertraline (ZOLOFT) 100 mg tablet Take 1 tablet by mouth once daily. 02/13/2018 at 0700 Yes promethazine (PHENERGAN) 25 mg tablet Take 1 tablet by mouth every 6 hours as needed for Nausea/Vomiting. Yes pyridostigmine (MESTINON) 60 mg tablet Take 1 tablet by mouth three times daily. As needed based on activity. Dr. Land, [facility] Yes ondansetron orally disintegrating (ZOFRAN ODT) 8 mg disintegrating tablet Take 8 mg by mouth as needed. 02/12/2018 at 1600 Yes sucralfate (CARAFATE) 1 gram tablet Take 1 g by mouth four times daily. Yes lancets (TRUEPLUS LANCETS) 33 gauge misc Use as directed 3- 4 times daily. Insulin [place], Disposable, (BD ULTRA-FINE DAYA PEN NEEDLE) 32 gauge x 5/32 ndle Use one needle for each dose. 4/day. mupirocin (BACTROBAN) 2 % ointment Compression Knee Highs KNEE HIGH COMPRESSION STOCKINGS 20- 30 MM. DX: EDEMA cyclobenzaprine (FLEXERIL) 10 mg tablet Take 1 tablet by mouth three times daily as needed for Muscle Spasm. Dr. Swanson trimethobenzamide (TIGAN) 300 mg capsule Take 1 capsule by mouth three times daily. Patient not taking: Reported on 12/18/2017 MULTIVITAMIN ORAL Take by mouth. ALLERGIES Allergen Reactions - Levaquin [Levofloxa* Other: See Comments Aching in joints - Lisinopril Other: See Comments Lip swelling, possible angioedema, face swelling - Losartan Swelling Face swelling - Nicoderm Rash - Reglan [Metoclopram* Hives Objective PHYSICAL EXAM: The remainder of the physical exam is noncontributory. AIRWAY: Airway Visualization of Uvula: Yes Mouth opening greater than 2 fingerbreadths: Yes Neck Full Range of Motion: Yes LUNGS: Negative CARDIAC: Normal S1 and S2; no rubs, murmurs, or gallops Assessment/Plan ASA Class: ASA Class:: Patient with mild systemic disease Provisional Diagnosis/Treatment Plan: Transjugular liver biopsy and pressure measurements under moderate sedation SEDATION GOAL: Moderate SIGNATURE: Alfonso Emery MD PATIENT NAME: Amarilys Kaiser Jr. DATE: February 13, 2018 TIME: 2:43 PM PAGER: [phone] PT ED Observed: 02/13/2018 Status: COMPLETED Source: [place] 2:36 PM [facility] REPOSITORY HNO ID: [id number] Author: Whitney RamseyRn) ERICH Ornelas Service: Nursing Author Type: Registered Nurse Type: Patient Education Filed: 02/13/2018 2:37 PM Note Text: AMBULATORY PATIENT EDUCATION TOPIC: Survival Skills: SURVIVAL SKILLS: procedure READINESS TO LEARN COGNITIVE ABILITY: Alert and oriented MOTIVATION TO LEARN: Interested FAMILY SUPPORT: Unable to assess - Family not present INSTRUCTION PROVIDED TO: Patient PATIENT LEARNS BEST BY: Individual Instruction Verbal Instruction FACTORS AFFECTING LEARNING: None PHYSICAL LIMITATIONS AFFECTING LEARNING: None LEARNING RESPONSE DIAGNOSIS: Fatty liver METHOD OF INSTRUCTION: Individual instruction Verbal instruction PATIENT / FAMILY RESPONSE: Information received as demonstrated by interest and questions FOLLOW-UP PLAN: Complete - No need for follow-up SUPPLEMENTAL MATERIAL: None REFERRAL (RECOMMENDATION): None Electronically Signed By: Whitney Ornelas RN In Department: [facility] NURSING PROG Observed: 02/13/2018 Status: COMPLETED Source: [place] 12:36 PM [facility] REPOSITORY HNO ID: [id number] Author: Ann RamseyRn) ERICH Verma Service: Nursing Author Type: Registered Nurse Type: Nursing Progress Note Filed: 02/13/2018 1:02 PM Note Text: Nursing Progress Note Amarilys Kaiser Jr. [id number] 1201:Brought back to recovery for pre procedure prep. Pt c/o light headedness and diaphoresis. Patent in cart at this time and accucheck completed, blood sugar 59. Dr. Campbell paged. #20g IV started in right AC. 1208: 1/[address] Campbell at bedside. Will recheck blood sugar in 15 minutes. 1223: Blood sugar rechecked- 110. Dr. Campbell paged with updated blood sugar and high blood pressure - 182/114, recheck 185/120. Waiting for call back. Patient states I am feeling better. Will continue to monitor. 1245: Second call placed to patient ride for post procedure, unable to reach, voice mail left to call back. 1300: Dr Campbell at bedside and updated on patient blood sugar and BP. Waiting for further instruction. Return call received from patient post procedure Lonny josé, will be here post procedure for grape picker. This note was completed by: Ann Verma RN NURSING PROG Observed: 02/06/2018 Status: COMPLETED Source: [place] 11:02 AM [facility] REPOSITORY HNO ID: [id number] Author: Kaitlynn (Rn) ERICH Yo Service: (none) Author Type: Registered Nurse Type: Nursing Progress Note Filed: 02/06/2018 11:04 AM Note Text: Pre-procedure phone calls: Contacted Amarilys Kaiser Jr. and confirmed appt. for his transjugular liver biopsy scheduled on 02/13, at [facility]. I will be providing you with instructions if not followed; your procedure will be rescheduled. At the end of our conversation, I will be asking you a few questions, I will wait while you get a pen and paper. Diet: Do not eat any solid food after MN the day of/night before your procedure. Please take your routine medications with small sips of clear liquids. You may drink clear liquids until 1030, which means black coffee or water only. Medications: IF ok with your Prescribing Provider: RADIOLOGY RECOMMENDS THESE MEDICATION RESTRICTIONS Will hold insulin the day of procedure Labs: (J1-4, S-15, 3 hours prior to procedure start time). Labs completed on 12/26 Arrival: Please bring your Photo ID and Insurance Card. A general consent may need to be signed. Arrive to J1-1 ([facility]) Admitting/Registration by 1100. Then proceed to desk QB-1 ([facility]) and check in for your procedure. Your anticipated procedure start time will be between 1230 AND 1330. Household Refrigerator Mechanic/Transportation: How will you be arriving for your procedure? private car. If you will be arriving at [facility] via ambulance or public transportation, please call to discuss. You will need a responsible adult to accompany you to and from the procedure. Your armored truck driver is required to stay with you until you are taken into the Procedure room. Recovery expectations: You will be in the recovery room post procedure for a minimum of 2 Hours. You will be staying overnight after the procedure. Special concerns: Do you use CPAP or BPAP? No If you use CPAP or BiPAP, please call to discuss. We do not want your procedure to be rescheduled I have a few questions for you... What is your arrival time to -1? 1100 What time do you stop eating food? MN What time can you have clears until? 1030 Tell me how you will be taking your medications the morning of your procedure? Will take all medications except insulin If you have any questions please call [phone] CNPTOUTREACH Observed: 02/06/2018 Status: COMPLETED Source: [place] 12:00 AM [facility] REPOSITORY Patient Outreach (FAMP[facility]) AMARILYS KAISER JR. ([id number]) 1975 M Date Time Provider Department 02/06/18 CASSIE GRAHAM) [facility] During your visit today, we recorded the following information about you: Allergies As of Date: 02/06/2018 Noted Allergy Reaction LEVAQUIN (LEVOFLOXACIN) 12/07/2017 14 - Other: See Comments Comments: Aching in joints LISINOPRIL 11/14/2017 14 - Other: See Comments Comments: Lip swelling, possible angioedema, face swelling LOSARTAN 12/07/2017 7 - Swelling Comments: Face swelling NICODERM 10/03/2016 2 - Rash REGLAN (METOCLOPRAMIDE HCL) 07/26/2016 4 - Hives Date Reviewed: 01/03/2018 Reviewed by: Patricia Grimm Ct - Fully Assessed Visit Diagnosis:Medication management [Z79.899] Order(s):HGB A1C [NJCOU8C] Order #: [id number] FUTURE Prescriptions as of 02/06/2018 Sig: ALBUTEROL SULFATE HFA 90 MCG/* Inhale 2 Puffs as instructed * BLOOD SUGAR DIAGNOSTIC STRIPS Use as instructed 3-4 times d* BUDESONIDE-FORMOTEROL HFA 160* Inhale 2 Puffs as instructed * COMPOUNDED PRESCRIPTION KNEE HIGH COMPRESSION STOCKIN* CYCLOBENZAPRINE 10 MG TABLET Take 1 tablet by mouth three * FUROSEMIDE 20 MG TABLET Take 1 tablet by mouth once d* GABAPENTIN 300 MG CAPSULE Take one capsule by mouth thr* HYDROCHLOROTHIAZIDE 50 MG TAB* Take 1 tablet by mouth once d* INSULIN ASPART U-100 100 UNI* Take 1 unit per 8 grams of ca* INSULIN DETEMIR (U-100) 100 U* Inject subcutaneous 34 units * PEN NEEDLE, DIABETIC 32 GAUGE* Use one needle for each dose.* LANCETS 33 GAUGE Use as directed 3-4 times willy* MONTELUKAST 10 MG TABLET Take 1 tablet by mouth daily * MULTIVITAMIN ORAL Take by mouth. MUPIROCIN 2 % TOPICAL OINTMENT OMEPRAZOLE 40 MG CAPSULE,YONNY* Take 1 capsule by mouth once * PYRIDOSTIGMINE BROMIDE 60 MG * Take 1 tablet by mouth three * SERTRALINE 100 MG TABLET Take 1 tablet by mouth once d* SUCRALFATE 1 GRAM TABLET Take 1 g by mouth four times * TRIMETHOBENZAMIDE 300 MG CAPS* Take 1 capsule by mouth three* Patient not taking: Reported on 12/18/2017 X METOPROLOL TARTRATE 50 MG TAB* Take 1 tablet by mouth twice * X ONDANSETRON 8 MG DISINTEGRATI* Take 8 mg by mouth as needed. X PROMETHAZINE 25 MG TABLET Take 1 tablet by mouth every * Problem List As Of Date 02/06/2018 Noted Resolved Anxiety and depression [F41.9, F32.9] INVALID FOR* Hypertension [I10] Diabetic neuropathy (HCC) [E11.40] More... Asthma [J45.909] GERD (gastroesophageal reflux disease) [K21.9] IBS (irritable bowel syndrome) [K58.9] More... Myasthenia gravis (HCC) [G70.00] More... Tobacco use [Z72.0] Type I diabetes mellitus (HCC) [E10.9] More... Hyperlipidemia [E78.5] Encounter Status:Closed by SKYLER RODRIGUEZ on 03/09/18 HOSP Observed: 01/08/2018 Status: COMPLETED Source: [place] 12:00 AM [facility] [place] REPOSITORY Patient:Amarilys Kaiser Jr. MRN: <[id number]> Height:5' 6(1.676 m) Weight:No patient weight recorded within the last 30 days. Outpatient Medications as of 02/13/18: Omeprazole 40 mg capsule metoprolol tartrate, short acting, (LOPRESSOR) 50 mg tablet budesonide-formoterol (SYMBICORT) 160-4.5 mcg/actuation inhaler albuterol HFA (VENTOLIN HFA) 90 mcg/actuation inhaler hydroCHLOROthiazide (HYDRODIURIL, ESIDRIX) 50 mg tablet montelukast (SINGULAIR) 10 mg tablet furosemide (LASIX) 20 mg tablet blood sugar diagnostic (TRUE METRIX GLUCOSE TEST STRIP) test strip lancets (TRUEPLUS LANCETS) 33 gauge [facility] Insulin [place], Disposable, (BD ULTRA-FINE DAYA PEN NEEDLE) 32 gauge x 5/32 ndle gabapentin (NEURONTIN) 300 mg capsule insulin aspart U-100 (NOVOLOG FLEXPEN U-100 INSULIN) 100 unit/mL inpn insulin detemir U-100 (LEVEMIR FLEXTOUCH U-100 INSULN) 100 unit/mL (3 mL) inpn injection mupirocin (BACTROBAN) 2 % ointment sertraline (ZOLOFT) 100 mg tablet Compression Knee Highs promethazine (PHENERGAN) 25 mg tablet pyridostigmine (MESTINON) 60 mg tablet cyclobenzaprine (FLEXERIL) 10 mg tablet ondansetron orally disintegrating (ZOFRAN ODT) 8 mg disintegrating tablet trimethobenzamide (TIGAN) 300 mg capsule sucralfate (CARAFATE) 1 gram tablet MULTIVITAMIN ORAL Admission/Clinic Administered Medications as of 02/13/18: Patient has no admission medications. Problem List: Anxiety and depression [F41.9, F32.9] Hypertension [I10] Diabetic neuropathy (HCC) [E11.40] Asthma [J45.909] GERD (gastroesophageal reflux disease) [K21.9] IBS (irritable bowel syndrome) [K58.9] Myasthenia gravis ([facility]) [G70.00] Tobacco use [Z72.0] Type I diabetes mellitus (HCC) [E10.9] Hyperlipidemia [E78.5] Allergies: Allergies have not been reviewed in the past 30 days. Lab Values No results within the last 30 days for the following basenames: K,HCT Progress Notes ([facility]): Cassie Graham MD 01/26/2018 1:18 PM Signed Med list updated. No changes to regimen. Progress Notes ([facility]): Racheal Perdomo Ma 01/23/2018 8:50 AM Signed Message from [facility]: Amarilys Kaiser Jr. would like a refill of the following medications: promethazine (PHENERGAN) 25 mg tablet [Kadeem Sim MD] Preferred pharmacy: [facility] [address] [place] [phone] [facility] [phone] [facility] Comment: Medication renewals requested in this message routed separately: Omeprazole 40 mg capsule [Chloe Batista RN PURE PAK MACHINE OPERATOR.PICKER / PACKER] metoprolol tartrate, short acting, (LOPRESSOR) 50 mg tablet [Cassie Graham MD] budesonide-formoterol (SYMBICORT) 160-4.5 mcg/actuation inhaler [Cassie Graham MD] albuterol HFA (VENTOLIN HFA) 90 mcg/actuation inhaler [Cassie Graham MD] hydroCHLOROthiazide (HYDRODIURIL, ESIDRIX) 50 mg tablet [Cassie Graham MD] montelukast (SINGULAIR) 10 mg tablet [Cassie Graham MD] furosemide (LASIX) 20 mg tablet [Cassie Graham MD] sertraline (ZOLOFT) 100 mg tablet [Cassie Graham MD] losartan (COZAAR) 50 mg tablet [Cassie Graham MD] blood sugar diagnostic (TRUE METRIX GLUCOSE TEST STRIP) test strip [Rayo Fam MD] lancets (TRUEPLUS LANCETS) 33 gauge misc [Rayo Fam MD] Insulin [place], Disposable, (BD ULTRA-FINE DAYA PEN NEEDLES) 32 gauge x 5/32 ndle [Rayo Fam MD] gabapentin (NEURONTIN) 300 mg capsule [Rayo Fam MD] Racheal Perdomo Ma 01/23/2018 8:50 AM Signed Patient last seen 11/08/2016. Racheal Perdomo Ma PROGRESS Observed: 01/03/2018 Status: COMPLETED Source: [place] 11:39 AM [facility] REPOSITORY O ID: [id number] Author: Patricia Grimm Ct Service: (none) Author Type: (none) Type: Progress Notes Filed: 01/03/2018 11:40 AM Note Text: Radiology Service Progress Note PATIENT NAME: Amarilys Kaiser Jr. DATE OF SERVICE: January 03, 2018 TIME: 11:39 AM PATIENT IDENTITY VERIFICATION COMPLETED USING TWO (2) METHODS: Patient confirmed name verbally and Date of . PATIENT GENDER DATA: Male PATIENT RELEVANT IMPLANT DATA REVIEWED: Not Applicable CONTRAST INDUCED NEPHROPATHY RISK FACTORS: Not applicable CREATININE: Creatinine Date Value Ref Range Status 12/07/2017 1.11 0.73 - 1.22 mg/dL Final 11/07/2017 1.51 (H) 0.73 - 1.22 mg/dL Final 04/25/2017 0.85 0.73 - 1.22 mg/dL Final eGFR-All Other Races Date Value Ref Range Status 12/07/2017 >60 . Final Comment: eGFR (Estimated GFR) Units of measure: mL/min/1.73 meters squared eGFR is derived from the reexpressed MDRD Study equation using the following parameters: serum creatinine, age, gender and race. The creatinine assay has been calibrated to be traceable to IDMS. An eGFR <60 mL/min/1.73m2 for >3 months is consistent with chronic kidney disease. Refer to KDOQI guidelines for clinical interpretation. In patients with unstable renal function, e.g. those with acute kidney injury, the eGFR may not accurately reflect actual GFR. eGFR- Date Value Ref Range Status 12/07/2017 >60 Final P.O.C.T. RESULTS: POC done: Yes, See Lab Tab January 03, 2018 RADIOLOGIST NOTIFIED?: No ALLERGIES: Reviewed and unchanged CONTRAST ALLERGY: NO. PERIPHERAL IV ACCESS: Ambulatory: IV type: A peripheral IV was started in the Left antecubital site with a Angio cath: 18 gauge., Site assessment: Clean,Dry and Intact, Site disposition Discontinued RADIOLOGY DEPARTMENT: CT; Exam(s) Completed: Chest and Liver SIGNED BY: Patricia Khalil Grimm Ct January 03, 2018 11:[address] LIVER W IVCON Observed: 01/03/2018 Status: F Source: [place] 8:52 AM [facility] REPOSITORY * * *Final Report* * * DATE OF EXAM: Jan 03 2018 8:52AM [facility] 0548 - CT LIVER W IVCON / PROCEDURE REASON: multiple diagnoses * * * * Physician Interpretation * * * * EXAMINATION: CT ABDOMEN WITH IV CONTRAST (LIVER) CLINICAL HISTORY: 42-year-old man with elevated liver enzymes found to have fatty liver by ultrasound. TECHNIQUE: Hepatic arterial, portal venous and early equilibrium phase CT imaging of the abdomen was performed utilizing IV contrast only (Liver protocol). M: [id number] Contrast: IV: 110 ml of Omnipaque 300 Oral: none CT Radiation dose: Integrated Dose-length product (DLP) for this visit = 967 mGy*cm. CT Dose Reduction Employed: Automated exposure control(AEC) and iterative recon COMPARISON: None. RESULT: Liver: Normal hepatic morphology. Hepatic attenuation is normal with no findings to suggest diffuse steatosis. Focal area of low attenuation within segment IV adjacent to the fissure for the falciform ligament is compatible with focal steatosis. There are no hepatic lesions. Hepatic vasculature: ... Portal venous system (splenic vein, main portal vein, left and right anterior and right posterior portal vein branches): Patent. Celiac trunk and SMA: Patent. No stenosis. Hepatic artery: Patent. Conventional anatomy. Hepatic veins: Patent. Other findings: Spleen: 9 cm (craniocaudally), normal. No mass. Mesentery/Peritoneum: No ascites. No mass. Biliary: No bile duct dilation. Gallbladder is absent. Pancreas: Diffuse pancreatic atrophy. No mass. Adrenals: No mass. Kidneys: No mass, calculus or hydronephrosis. GI tract: No dilation or wall thickening. Lymph nodes: No abdominal lymphadenopathy. Vasculature: There are atherosclerotic calcifications without aneurysmal dilation. Bones/Soft Tissues: No significant finding. Lower thorax: Unremarkable. IMPRESSION: Normal hepatic morphology. No hepatic lesion. Focal fat present adjacent to the fissure for ligament, otherwise no CT evidence of steatosis. Patent hepatic vasculature. Sales Producer: MORIS Transcribe Date/Time: Jan 03 2018 9:14A Dictated by : MEGAN SIMON MD This examination was interpreted and the report reviewed and electronically signed by: MEGAN SIMON MD on Jan 03 2018 9:25AM EST [id number] CT CHEST WO IVCON Observed: 01/03/2018 Status: F Source: [place] 8:52 AM [facility] REPOSITORY * * *Final Report* * * DATE OF EXAM: Jan 03 2018 8:52AM [facility] 0541 - CT CHEST WO IVCON / PROCEDURE REASON: Other nonspecific abnormal finding of lung field * * * * Physician Interpretation * * * * EXAMINATION: CHEST CT WITHOUT CONTRAST CLINICAL HISTORY: Other nonspecific abnormal finding of lung field Technique: Spiral CT acquisition of the chest from the thoracic inlet to the upper abdomen without contrast. MQ: [id number] CT Dose-Length Product: 967 mGy*cm CT Dose Reduction Employed: Automated exposure control(AEC) and iterative recon Comparison: 04/27/2017 RESULT: Limitations: None. Lines, tubes, and devices: None. Lung parenchyma and pleura: There are stable subcentimeter pulmonary nodules. For example, there is a stable 4 mm nodule seen within the right lower lobe (series 3, image #154). There is a stable, approximately 6 mm nodule seen within the right lower lobe (series 3, image #158). Multiple other subcentimeter pulmonary nodules are also stable. For example, there is a stable, approximately 3-4 mm nodule seen within the right upper lobe (series 3, image #32). There is a stable 3 mm nodule seen within the left upper lobe (series 3, image #31). There is a stable, approximate 4 mm nodule seen within left lower lobe (series 3, image #144). There is no new pulmonary nodule. There is no CT evidence for pneumonia. No pleural effusion, endobronchial lesion, or pneumothorax. Thoracic inlet, heart, and mediastinum: The patient is status post median sternotomy. Surgical clips again seen within the anterior mediastinum. The heart is normal in size. There is a small pericardial effusion, stable. There are no pathologically enlarged axillary, mediastinal, or hilar lymph nodes. Bones and soft tissues: A bone island is seen within the right humeral head. There is mild scoliosis of the spine. There is no destructive bony lesion. The patient is status post median sternotomy. Upper abdomen: Please refer to separately dictated report for abdominal. IMPRESSION: No acute pulmonary process is identified. Stable bilateral pulmonary nodules, measuring up to 6 mm in size. Consider a follow- up examination in 6-12 months in order to assess stability. Please refer to separately dictated report for abdominal findings. Sales Producer: PSCB Transcribe Date/Time: Jan 04 2018 8:07A Dictated by : MALACHI LARSON MD This examination was interpreted and the report reviewed and electronically signed by: MALACHI LARSON MD on Jan 04 2018 8:11AM EST [id number] [id number] Collected: 12/26/2017 Status: F Source: [place] 9:46 AM [facility] [place] REPOSITORY TYPE CODE TESTS RESULT OUT OF RANGE REFERENCE UNITS LAB PSEC 9.7-13.0 sec Low PT Sec 9.4 LAB INR 0.9-1.3 Low PT INR <0.9 Result Comment: Vitamin K Antagonist (VKA) Therapeutic Range: INR 2 to 3 (Target INR of 2.5) Note: For patients treated with VKA drugs, such as warfarin, the [place] [employer] 2012 Guideline recommends a therapeutic INR range of 2 to 3 (target INR of 2.5). This recommendation includes high-risk patients with antiphospholipid syndrome with previous arterial or venous thromboembolism, current-generation mechanical or bioprosthetic aortic heart valve replacement. Note: Patients with mechanical aortic valve replacement and additional risk factors for thromboembolic events (atrial fibrillation, previous thromboembolism, LV dysfunction, hypercoagulable conditions) or an older generation mechanical AVR (i.e., ball in-Cage) or any mechanical MVR should have a INR therapeutic range of 2.5 to 3.5 (target INR of 3). Kacie GH, et al. Chest 2012, 141:7S-47S Magy AYALA, et al. [facility] 2017, 70: 252-289 Performed By: #### PT, CBC, CERULO, AHAVT, GGT, IRON, AAT, HFP, FERR, ANAS, SMOOTH, DOROTEO #### [facility] [employer] [address] [place], [place] [address] CBC Collected: 12/26/2017 Status: F Source: [place] 9:46 AM [facility] REPOSITORY TYPE CODE TESTS RESULT OUT OF REFERENCE UNITS RANGE LAB WBC 3.70-11.00 k/uL WBC 10.24 LAB RBC 4.20-6.00 m/uL RBC 4.56 LAB HGB 13.0-17.0 g/dL Hemoglobin 13.1 LAB HCT 39.0-51.0 % Hematocrit 40.2 LAB MCV 80.0-100.0 fL MCV 88.2 LAB MCH 26.0-34.0 pG MCH 28.7 LAB MCHC 30.5-36.0 g/dL MCHC 32.6 LAB RDWCV 11.5-15.0 % RDW-CV 13.0 LAB PLTCT 150-400 k/uL Platelet Count 384 LAB MPV 9.0-12.7 fL MPV 11.5 LAB ABSNUC <0.01 k/uL Absolute nRBC <0.01 Performed By: #### PT, CBC, CERULO, AHAVT, GGT, IRON, AAT, HFP, FERR, ANAS, SMOOTH, DOROTEO #### [facility] [employer] [employer] [facility] [place] [address] CERULOPLASMIN Collected: 12/26/2017 Status: F Source: [place] 9:46 AM [facility] REPOSITORY TYPE CODE TESTS RESULT OUT OF REFERENCE UNITS RANGE LAB CERULO 15-30 mg/dL Ceruloplasmin 20 Performed By: #### PT, CBC, CERULO, AHAVT, GGT, IRON, AAT, HFP, FERR, ANAS, SMOOTH, DOROTEO #### [facility] [employer] [address] [place], [place] [address] HEPATITIS A AB TOTAL Collected: 12/26/2017 Status: F Source: [place] 9:46 AM [facility] REPOSITORY TYPE CODE TESTS RESULT OUT OF RANGE REFERENCE UNITS LAB AHAVT Negative Abnormal Hepatitis A Ab Positive Alert Total Performed By: #### PT, CBC, CERULO, AHAVT, GGT, IRON, AAT, HFP, FERR, ANAS, SMOOTH, DOROTEO #### [place] [address] GGT Collected: 12/26/2017 Status: F Source: [place] 9:46 AM [facility] REPOSITORY TYPE CODE TESTS RESULT OUT OF RANGE REFERENCE UNITS LAB GGT 10-70 U/L High GGT 307 Performed By: #### PT, CBC, CERULO, AHAVT, GGT, IRON, AAT, HFP, FERR, ANAS, SMOOTH, DOROTEO #### [place] [address] IRON AND TIBC Collected: 12/26/2017 Status: F Source: [place] 9:46 AM [facility] REPOSITORY TYPE CODE TESTS RESULT OUT OF REFERENCE UNITS RANGE LAB IRN 41-186 ug/dL Low Iron 28 LAB TIBC 232-386 ug/dL Low TIBC 212 LAB SAT 15-57 % Low Transferrin Saturatn 13 Performed By: #### PT, CBC, CERULO, AHAVT, GGT, IRON, AAT, HFP, FERR, ANAS, SMOOTH, DOROTEO #### [place] [address] ALPHA 1 ANTITRYPSIN Collected: 12/26/2017 Status: F Source: [place] 9:46 AM [facility] REPOSITORY TYPE CODE TESTS RESULT OUT OF REFERENCE UNITS RANGE LAB AAT 90-200 mg/dL Alpha 1 antitrypsin 133 Performed By: #### PT, CBC, CERULO, AHAVT, GGT, IRON, AAT, HFP, FERR, ANAS, SMOOTH, DOROTEO #### [place] [address] HEPATIC FUNCTN PANEL Collected: 12/26/2017 Status: F Source: [place] 9:46 [facility] REPOSITORY TYPE CODE TESTS RESULT OUT OF REFERENCE UNITS RANGE LAB ALB 3.9-4.9 g/dL Low Albumin 2.7 LAB TBIL 0.2-1.3 mg/dL Low Bilirubin, Total <0.2 LAB CBIL <0.2 mg/dL Bilirubin,Conjuga <0.2 chavez LAB ALKP 38-113 U/L Alkaline High Phosphatase 319 LAB AST 14-40 U/L AST 26 LAB ALT 10-54 U/L ALT High 55 LAB TP 6.3-8.0 g/dL Low Protein, Total 5.9 Performed By: #### PT, CBC, CERULO, AHAVT, GGT, IRON, AAT, HFP, FERR, ANAS, SMOOTH, DOROTEO #### [place] [id number] FERRITIN Collected: 12/26/2017 Status: F Source: [place] 9:46 AM [facility] REPOSITORY TYPE CODE TESTS RESULT OUT OF REFERENCE UNITS RANGE LAB FERR 30.3-565.7 ng/mL Ferritin 264.6 Performed By: #### PT, CBC, CERULO, AHAVT, GGT, IRON, AAT, HFP, FERR, ANAS, SMOOTH, DOROTEO #### [place] [address] MAURO Collected: 12/26/2017 Status: F Source: [place] 9:46 AM [facility] REPOSITORY TYPE CODE TESTS RESULT OUT OF REFERENCE UNITS RANGE LAB ANAQL Negative MAURO Negative by EIA, Qual LAB ANAEIA OD Ratio MAURO 0.3 by EIA Result Comment: OD Ratio is interpreted as follows: Negative <1.0 Positive >=1.0 Performed By: #### PT, CBC, CERULO, AHAVT, GGT, IRON, AAT, HFP, FERR, ANAS, SMOOTH, DOROTEO #### [place] [id number] SMOOTH MUSCLE AB Collected: 12/26/2017 Status: F Source: [place] PNL 9:46 AM [facility] REPOSITORY TYPE CODE TESTS RESULT OUT OF REFERENCE UNITS RANGE LAB SMOOTH Negative Smooth Negative Muscle Ab Pnl Result Comment: Normal range : negative at a 1:20 serum dilution. Performed By: #### PT, CBC, CERULO, AHAVT, GGT, IRON, AAT, HFP, FERR, ANAS, SMOOTH, DOROTEO #### [address] [address] MITOCHONDRIAL AB PNL Collected: 12/26/2017 Status: F Source: [place] 9:46 AM [facility] REPOSITORY TYPE CODE TESTS RESULT OUT OF REFERENCE UNITS RANGE LAB DOROTEO Negative Mitochondrial Ab Pnl Negative Result Comment: Normal range : negative at a 1:20 serum dilution. Performed By: #### PT, CBC, CERULO, AHAVT, GGT, IRON, AAT, HFP, FERR, ANAS, SMOOTH, DOROTEO #### [facility] [address] [place], [place] [address] PROGRESS Observed: 12/26/2017 Status: COMPLETED Source: [place] 8:23 AM [facility] [place] REPOSITORY HNO ID: [id number] Author: Adrien Parada Service: (none) Author Type: Physician Type: Progress Notes Filed: 12/26/2017 1:23 PM Note Text: Diagnosis: NAFLD Symptom: abdominal pain, nausea with vomiting, fatigue Consultation requested by Dr. Graham for an opinion regarding elevated liver enzymes. My final recommendations will be communicated back to the requesting physician by way of shared medical record or letter via US mail History of presenting illness: Amarilys Kaiser Jr. is a 42 year old yr old male patient who is referred to me today by Dr. Graham for an opinion regarding abnormal liver enzymes. The patient has known to have intermittently elevated liver enzymes since 2013. US liver in 2014 was unremarkable. Remote panel was negative. Last year he was admitted to the hospital with complain of abdominal pain, nausea/vomiting with workup showing hypovolemia and glucose of >600 with normal anion gap in the ED. CT abd/pelvis showed potential colitis without bowel obstruction. Also noted micro nodules in lung bases bilaterally. Diagnosed with transverse colitis and started on IV cipro and flagyl with clear liquid diet. Also given IV hydration for hypovolemia with hyponatremia and hypochloremia. His labs at that time showed worsening of transaminitis and he underwent another RUQ US that showed a fatty liver, mild splenomegaly, small ascites, and small pleural effusion. 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 He has been on insulin since 1999. Gastroparesis secondary to DM. Takes Zofran and Phenergan as needed for nausea. Was seen by Dr. Mcnamara and recommended a smart pill which he didn't do due to transportation issues. He tried Reglan but developed rash. Currently not taking any medications for gastroparesis Chronic bilateral lower extremity swelling due to venous insuffoiciency. Taking lasix 20 mg daily Hypertension. Taking Losartan, hydrochlorothiazide Mixed hyperlipidemia-was on statin but stopped due to elevated LFTs. Myasthenia gravis, s/p thymectomy in 2001. On Mestinon Malnutrition, takes protein boosts TID Moderate asthma IBS mixed type. Depression and anxiety-on Zoloft The patient has the metabolic syndrome including DM. Amarilys Kaiser Jr. denies alcohol abuse. Family history significant for alcoholic liver disease in father. He denies cronic hepatotoxic drug ingestion and risk factors for hepatitis C including IVDA, nasal cocaine, blood transfusion prior to 1989, tattoo or high risk sexual exposure. He is scheduled for chest CT on 01/03. Based on recent blood work, the patient has transaminitis with preserved liver synthetic function and has normal platelets. The patient reports fatigue, nausea, abdominal pain, and nocturnal stool incontinence. Denies fever, rash, jaundice, recent change in bowel habits, confusion or GI bleeding. Does not currently have ascites, GI bleeding or encephalopathy Metabolic Syndrome Risk factors: 3/5 1) Diabetes/ Abnormal FBS >100mg/dL:yes 2) Hypertension :yes 3)Triglycerides more then 150 : yes 4) HDL (<50 female and <40 male):no 5) Central obesity ( Waist >102 men and >88 female) -no, Body mass index is 20.37 kg/m?. VANITA:no Work Up: Liver Biopsy: no Imaging: US, 02/24/2017 IMPRESSION: 1. ?Possible hepatic fatty change. 2. ?Mild splenomegaly 3. ?Small amount of ascites 4. ?Small left pleural effusion EGD: yes, 01/04/2016 Esophageal stricture, s/p dilatation Colonoscopy: 09/08/2015 Poor prep Review of Systems: No headache or vision loss No slurring of speech + numbness or tingling + chronic fatigue No fever + abd pain + nausea or vomiting + constipation or diarrhea No hemoptysis or melena No Jaundice or rash General: normal Respiratory: none Cardiovascular: none GI: see HPI : negative Endocrine: see HPI Nervous: none Psychiatric: cooperative and agreeable Musculoskeletal: denies significant problems Integumentary: none Allergic/Immunologic: none Others: none Allergy: Levaquin [Levofloxacin]; Lisinopril; Losartan; Nicoderm; Reglan [Metoclopramide Hcl] PAST MEDICAL HISTORY Diagnosis Date - Anxiety and depression - Asthma - Diabetic neuropathy (HCC) Seeing Dr. Land - Edentulous - Emphysema lung (HCC) early stages - Fatty liver - Gastroparesis - GERD (gastroesophageal reflux disease) - Hyperlipidemia - Hypertension - IBS (irritable bowel syndrome) previously seeing GI - Myasthenia gravis (HCC) Seeing Dr. Land-neurology - Pulmonary nodules - Shingles - Tobacco use - Type I diabetes mellitus (HCC) Seeing Dr. Fam PAST SURGICAL HISTORY Procedure Laterality Date - COLONOSCOPY 09/08/2015 poor prep - procedure aborted - EGD 01/04/2016 [facility] - PAST SURGICAL HISTORY OF Thymectomy - PAST SURGICAL HISTORY OF Cholecystectomy - PAST SURGICAL HISTORY OF teeth extraction-total Current Outpatient Prescriptions: insulin aspart U-100 (NOVOLOG FLEXPEN U-100 INSULIN) 100 unit/mL inpn Take 1 unit per 8 grams of carbs +SSI. 150-200: 1unit, 201-250: 2units, 251-300: 3units, 301-350: 4units, 351-400:5units, TDD 30units. insulin detemir U-100 (LEVEMIR FLEXTOUCH U-100 INSULN) 100 unit/mL (3 mL) inpn injection Inject subcutaneous 34 units daily. mupirocin (BACTROBAN) 2 % ointment sertraline (ZOLOFT) 100 mg tablet Take 1 tablet by mouth once daily. Compression Knee Highs KNEE HIGH COMPRESSION STOCKINGS 20- 30 MM. DX: EDEMA losartan (COZAAR) 50 mg tablet Take 1 tablet by mouth once daily. (Patient not taking: Reported on 12/22/2017 ) furosemide (LASIX) 20 mg tablet TAKE ONE TABLET BY MOUTH ONCE DAILY promethazine (PHENERGAN) 25 mg tablet Take 1 tablet by mouth every 6 hours as needed for Nausea/Vomiting. montelukast (SINGULAIR) 10 mg tablet TAKE 1 TABLET AT BEDTIME gabapentin (NEURONTIN) 300 mg capsule Take one capsule by mouth three times daily, as directed. DX: E11.40 Insulin [place], Disposable, (BD ULTRA-FINE DAYA PEN NEEDLES) 32 gauge x 5/32 ndle Use one needle for each dose. 4/day. hydroCHLOROthiazide (HYDRODIURIL, ESIDRIX) 50 mg tablet Take 1 tablet by mouth once daily. blood sugar diagnostic (TRUE METRIX GLUCOSE TEST STRIP) test strip Use as instructed 3-4 times daily. lancets (TRUEPLUS LANCETS) 33 gauge misc Use as directed 3- 4 times daily. pyridostigmine (MESTINON) 60 mg tablet Take 1 tablet by mouth three times daily. As needed based on activity. Dr. Land, [facility] cyclobenzaprine (FLEXERIL) 10 mg tablet Take 1 tablet by mouth three times daily as needed for Muscle Spasm. Dr. Swanson metoprolol tartrate, short acting, (LOPRESSOR) 50 mg tablet Take 1 tablet by mouth twice daily. budesonide-formoterol (SYMBICORT) 160-4.5 mcg/actuation inhaler Inhale 2 Puffs as instructed twice daily. albuterol HFA (VENTOLIN HFA) 90 mcg/actuation inhaler Inhale 2 Puffs as instructed every 4 hours as needed. ondansetron orally disintegrating (ZOFRAN ODT) 8 mg disintegrating tablet Take 8 mg by mouth as needed. trimethobenzamide (TIGAN) 300 mg capsule Take 1 capsule by mouth three times daily. (Patient not taking: Reported on 12/18/2017 ) Omeprazole 40 mg capsule Take 1 capsule by mouth twice daily before meals (0600/1600). sucralfate (CARAFATE) 1 gram tablet Take 1 g by mouth four times daily. MULTIVITAMIN ORAL Take by mouth. No current facility-administered medications for this visit. Social History Substance Use Topics - Smoking status: Current Every Day Smoker Packs/day: 1.00 Years: 26.00 Types: Cigarettes - Smokeless tobacco: Never Used Comment: down from 2 packs per day - Alcohol use Yes Comment: rarely Family History: FAMILY HISTORY Problem Relation Age of Onset - Cancer Father lung - other (Other) Daughter Depression/Psych - Thyroid Maternal Grandmother - Cancer Paternal Grandmother lung - Cancer Paternal Grandfather throat, brain - Hypertension Mother - other (thyroid issues) Mother Examinations: 12/26/17 0800 BP: 112/73 Pulse: 118 Temp: 36.6 ?C (97.9 ?F) TempSrc: Oral SpO2: 98% Weight: 57.2 kg (126 lb 3.2 oz) Height: 167.6 cm (5' 6) General: alert, oriented x 3, and in no acute distress, malnurished Skin: no rash, no spider nevi, no jaundice, no acanthosis nigricans HEENT: no icterus, conjunctiva not pale nor hyperemic Oropharynx: moist oral mucosa without ulcerations Neck: supple, no palpable neck or supraclavicular lymph nodes Lungs: normal expansion, diminished breath sounds on right, no crepits or wheezes Heart: regular rate and rhythm, no murmurs or gallops Abdomen: soft no mass, non tender, no hepatomegaly, no splenomegaly, no shifting dullness Extremities: no cyanosis, clubbing, phlebitis, palmar erythema, +muscle wasting, 2+ LE edema Lymph nodes: not palpable Neuro: Normal mental status, normal gait, no asterixis Labs: Component Latest Ref Rng AND Units 04/25/2017 11/07/2017 12/07/2017 Protein, Total 6.3 - 8.0 g/dL 5.8 (L) 5.8 (L) Albumin 3.9 - 4.9 g/dL 2.6 (L) 2.5 (L) Calcium 8.5 - 10.2 mg/dL 9.0 8.5 Bilirubin, Total 0.2 - 1.3 mg/dL <0.2 (L) <0.2 (L) Alkaline Phosphatase 36 - 108 U/L 209 (H) 351 (H) AST 14 - 40 U/L 35 98 (H) Glucose 74 - 99 mg/dL 250 (H) 312 (H) BUN 9 - 24 mg/dL 24 17 Creatinine 0.73 - 1.22 mg/dL 1.51 (H) 1.11 Sodium 136 - 144 mmol/L 132 (L) 132 (L) Potassium 3.7 - 5.1 mmol/L 4.1 3.7 Chloride 97 - 105 mmol/L 92 (L) 95 (L) CO2 22 - 30 mmol/L 25 25 Anion Gap 9 - 18 mmol/L 15 12 ALT 10 - 54 U/L 45 81 (H) eGFR- >60 >60 eGFR-All Other Races . 51 >60 Cholesterol, Total <200 mg/dL 330 (H) Triglyceride <150 mg/dL 276 (H) HDL Cholesterol >39 mg/dL 72 LDL Cholesterol <100 mg/dL 203 (H) Non HDL Cholesterol <130 mg/dL 258 (H) Fasting Time hrs 11 VLDL Cholesterol <30 mg/dL 55 (H) TC:HDL Ratio <5.10 4.58 LDL:HDL Ratio <2.54 2.82 (H) Creatinine, Ur Random (UCRR) 20 - 300 mg/dL 86.8 Albumin, Urine Random 0.0 - 23.0 mg/L >4,400.0 (H) Albumin/Creat Ratio 0 - 30 mg/g Not calculated Hemoglobin A1C 4.3 - 5.6 % 11.3 (H) Estimated Average Glucose mg/dL 278 NT Pro BNP <125 pg/mL 2,137 (H) Impression: 42 year old year old male with h/o DM type I, HTN, hyperlipidemia, myasthenia gravis, s/p thymectomy, gastroparesis a/w DM, asthma, depression and anxiety, and venous insufficiency presenting with transaminitis, fatty liver, and ascites on imaging, might be associated with MeS. Will do complete workup for chronic liver diseases, CT liver. He might need a liver biopsy. Plan: - Reviewed the US and disussed in detail the metabolic syndrome, fatty liver, NAFLD, liver biopsy - Check CBC,BMP, LFT and INR. - Check chronic liver disease panel: MAURO, ASMA, A1AT, AMA, iron studies, ceruloplasmin - CT liver - Follow up with Dr. Mcnamara for gastroparesis - Colorectal consult for nocturnal stool incontinence - Tramadol for abdominal pain until see Dr. Mcnamara - Might restart Lipitor after workup complete (was stopped due to elevated LFTs) - Follow up visit after the work up is complete, 4-6 weeks rJ Gomez APRN.ALFREDO See the above note for details. I saw and evaluated the patient with ALFREDO Gomez. I agree with the findings and the plan of care as documented in the note. Adrien Steel MD CNOV Observed: 12/26/2017 Status: COMPLETED Source: [place] 8:10 AM [facility] REPOSITORY Office Visit ([id number]) JOBAMARILYSRUBENS Renee JR. ([id number]) 1975 M Date Time Provider Department 12/26/17 8:10 AM ADRIEN PARADA [place]5 During your visit today, we recorded the following information about you: Temperature Pulse Blood pressure Weight 97.9 degrees 118/minute 112/73 57.2 kg Height 1.676 m Adrien Steel MD 12/26/2017 1:23 PM Signed Diagnosis: NAFLD Symptom: abdominal pain, nausea with vomiting, fatigue Consultation requested by Dr. Graham for an opinion regarding elevated liver enzymes. My final recommendations will be communicated back to the requesting physician by way of shared medical record or letter via US mail History of presenting illness: Amarilys Alexandrefrankytamela Malagon is a 42 year old yr old male patient who is referred to me today by Dr. Graham for an opinion regarding abnormal liver enzymes. The patient has known to have intermittently elevated liver enzymes since 2013. US liver in 2014 was unremarkable. Remote panel was negative. Last year he was admitted to the hospital with complain of abdominal pain, nausea/vomiting with workup showing hypovolemia and glucose of >600 with normal anion gap in the ED. CT abd/pelvis showed potential colitis without bowel obstruction. Also noted micro nodules in lung bases bilaterally. Diagnosed with transverse colitis and started on IV cipro and flagyl with clear liquid diet. Also given IV hydration for hypovolemia with hyponatremia and hypochloremia. His labs at that time showed worsening of transaminitis and he underwent another RUQ US that showed a fatty liver, mild splenomegaly, small ascites, and small pleural effusion. 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 He has been on insulin since 1999. Gastroparesis secondary to DM. Takes Zofran and Phenergan as needed for nausea. Was seen by Dr. Mcnamara and recommended a smart pill which he didn't do due to transportation issues. He tried Reglan but developed rash. Currently not taking any medications for gastroparesis Chronic bilateral lower extremity swelling due to venous insuffoiciency. Taking lasix 20 mg daily Hypertension. Taking Losartan, hydrochlorothiazide Mixed hyperlipidemia-was on statin but stopped due to elevated LFTs. Myasthenia gravis, s/p thymectomy in 2001. On Mestinon Malnutrition, takes protein boosts TID Moderate asthma IBS mixed type. Depression and anxiety-on Zoloft The patient has the metabolic syndrome including DM. Amarilys Kaiser Jr. denies alcohol abuse. Family history significant for alcoholic liver disease in father. He denies cronic hepatotoxic drug ingestion and risk factors for hepatitis C including IVDA, nasal cocaine, blood transfusion prior to 1989, tattoo or high risk sexual exposure. He is scheduled for chest CT on 01/03. Based on recent blood work, the patient has transaminitis with preserved liver synthetic function and has normal platelets. The patient reports fatigue, nausea, abdominal pain, and nocturnal stool incontinence. Denies fever, rash, jaundice, recent change in bowel habits, confusion or GI bleeding. Does not currently have ascites, GI bleeding or encephalopathy Metabolic Syndrome Risk factors: 05/29 1) Diabetes/ Abnormal FBS >100mg/dL:yes 2) Hypertension :yes 3)Triglycerides more then 150 : yes 4) HDL (<50 female and <40 male):no 5) Central obesity ( Waist >102 men and >88 female) -no, Body mass index is 20.37 kg/m?. VANITA:no Work Up: Liver Biopsy: no Imaging: US, 02/24/2017 IMPRESSION: 1. ?Possible hepatic fatty change. 2. ?Mild splenomegaly 3. ?Small amount of ascites 4. ?Small left pleural effusion EGD: yes, 01/04/2016 Esophageal stricture, s/p dilatation Colonoscopy: 09/08/2015 Poor prep Review of Systems: No headache or vision loss No slurring of speech + numbness or tingling + chronic fatigue No fever + abd pain + nausea or vomiting + constipation or diarrhea No hemoptysis or melena No Jaundice or rash General: normal Respiratory: none Cardiovascular: none GI: see HPI : negative Endocrine: see HPI Nervous: none Psychiatric: cooperative and agreeable Musculoskeletal: denies significant problems Integumentary: none Allergic/Immunologic: none Others: none Allergy: Levaquin [Levofloxacin]; Lisinopril; Losartan; Nicoderm; Reglan [Metoclopramide Hcl] PAST MEDICAL HISTORY Diagnosis Date - Anxiety and depression - Asthma - Diabetic neuropathy (HCC) Seeing Dr. Land - Edentulous - Emphysema lung (HCC) early stages - Fatty liver - Gastroparesis - GERD (gastroesophageal reflux disease) - Hyperlipidemia - Hypertension - IBS (irritable bowel syndrome) previously seeing GI - Myasthenia gravis (HCC) Seeing Dr. Land-neurology - Pulmonary nodules - Shingles - Tobacco use - Type I diabetes mellitus (HCC) Seeing Dr. Fam PAST SURGICAL HISTORY Procedure Laterality Date - COLONOSCOPY 09/08/2015 poor prep - procedure aborted - EGD 01/04/2016 [facility] - PAST SURGICAL HISTORY OF Thymectomy - PAST SURGICAL HISTORY OF Cholecystectomy - PAST SURGICAL HISTORY OF teeth extraction-total Current Outpatient Prescriptions: insulin aspart U-100 (NOVOLOG FLEXPEN U-100 INSULIN) 100 unit/mL inpn Take 1 unit per 8 grams of carbs +SSI. 150-200: 1unit, 201-250: 2units, 251-300: 3units, 301-350: 4units, 351-400:5units, TDD 30units. insulin detemir U-100 (LEVEMIR FLEXTOUCH U-100 INSULN) 100 unit/mL (3 mL) inpn injection Inject subcutaneous 34 units daily. mupirocin (BACTROBAN) 2 % ointment sertraline (ZOLOFT) 100 mg tablet Take 1 tablet by mouth once daily. Compression Knee Highs KNEE HIGH COMPRESSION STOCKINGS 20- 30 MM. DX: EDEMA losartan (COZAAR) 50 mg tablet Take 1 tablet by mouth once daily. (Patient not taking: Reported on 12/22/2017 ) furosemide (LASIX) 20 mg tablet TAKE ONE TABLET BY MOUTH ONCE DAILY promethazine (PHENERGAN) 25 mg tablet Take 1 tablet by mouth every 6 hours as needed for Nausea/Vomiting. montelukast (SINGULAIR) 10 mg tablet TAKE 1 TABLET AT BEDTIME gabapentin (NEURONTIN) 300 mg capsule Take one capsule by mouth three times daily, as directed. DX: E11.40 Insulin [place], Disposable, (BD ULTRA-FINE DAYA PEN NEEDLES) 32 gauge x 5/32 ndle Use one needle for each dose. 4/day. hydroCHLOROthiazide (HYDRODIURIL, ESIDRIX) 50 mg tablet Take 1 tablet by mouth once daily. blood sugar diagnostic (TRUE METRIX GLUCOSE TEST STRIP) test strip Use as instructed 3-4 times daily. lancets (TRUEPLUS LANCETS) 33 gauge misc Use as directed 3- 4 times daily. pyridostigmine (MESTINON) 60 mg tablet Take 1 tablet by mouth three times daily. As needed based on activity. Dr. Land, [facility] cyclobenzaprine (FLEXERIL) 10 mg tablet Take 1 tablet by mouth three times daily as needed for Muscle Spasm. Dr. Swanson metoprolol tartrate, short acting, (LOPRESSOR) 50 mg tablet Take 1 tablet by mouth twice daily. budesonide-formoterol (SYMBICORT) 160-4.5 mcg/actuation inhaler Inhale 2 Puffs as instructed twice daily. albuterol HFA (VENTOLIN HFA) 90 mcg/actuation inhaler Inhale 2 Puffs as instructed every 4 hours as needed. ondansetron orally disintegrating (ZOFRAN ODT) 8 mg disintegrating tablet Take 8 mg by mouth as needed. trimethobenzamide (TIGAN) 300 mg capsule Take 1 capsule by mouth three times daily. (Patient not taking: Reported on 12/18/2017 ) Omeprazole 40 mg capsule Take 1 capsule by mouth twice daily before meals (0600/1600). sucralfate (CARAFATE) 1 gram tablet Take 1 g by mouth four times daily. MULTIVITAMIN ORAL Take by mouth. No current facility-administered medications for this visit. Social History Substance Use Topics - Smoking status: Current Every Day Smoker Packs/day: 1.00 Years: 26.00 Types: Cigarettes - Smokeless tobacco: Never Used Comment: down from 2 packs per day - Alcohol use Yes Comment: rarely Family History: FAMILY HISTORY Problem Relation Age of Onset - Cancer Father lung - other (Other) Daughter Depression/Psych - Thyroid Maternal Grandmother - Cancer Paternal Grandmother lung - Cancer Paternal Grandfather throat, brain - Hypertension Mother - other (thyroid issues) Mother Examinations: 12/26/17 0800 BP: 112/73 Pulse: 118 Temp: 36.6 ?C (97.9 ?F) TempSrc: Oral SpO2: 98% Weight: 57.2 kg (126 lb 3.2 oz) Height: 167.6 cm (5' 6) General: alert, oriented x 3, and in no acute distress, malnurished Skin: no rash, no spider nevi, no jaundice, no acanthosis nigricans HEENT: no icterus, conjunctiva not pale nor hyperemic Oropharynx: moist oral mucosa without ulcerations Neck: supple, no palpable neck or supraclavicular lymph nodes Lungs: normal expansion, diminished breath sounds on right, no crepits or wheezes Heart: regular rate and rhythm, no murmurs or gallops Abdomen: soft no mass, non tender, no hepatomegaly, no splenomegaly, no shifting dullness Extremities: no cyanosis, clubbing, phlebitis, palmar erythema, +muscle wasting, 2+ LE edema Lymph nodes: not palpable Neuro: Normal mental status, normal gait, no asterixis Labs: Component Latest Ref Rng AND Units 04/25/2017 11/07/2017 12/07/2017 Protein, Total 6.3 - 8.0 g/dL 5.8 (L) 5.8 (L) Albumin 3.9 - 4.9 g/dL 2.6 (L) 2.5 (L) Calcium 8.5 - 10.2 mg/dL 9.0 8.5 Bilirubin, Total 0.2 - 1.3 mg/dL <0.2 (L) <0.2 (L) Alkaline Phosphatase 36 - 108 U/L 209 (H) 351 (H) AST 14 - 40 U/L 35 98 (H) Glucose 74 - 99 mg/dL 250 (H) 312 (H) BUN 9 - 24 mg/dL 24 17 Creatinine 0.73 - 1.22 mg/dL 1.51 (H) 1.11 Sodium 136 - 144 mmol/L 132 (L) 132 (L) Potassium 3.7 - 5.1 mmol/L 4.1 3.7 Chloride 97 - 105 mmol/L 92 (L) 95 (L) CO2 22 - 30 mmol/L 25 25 Anion Gap 9 - 18 mmol/L 15 12 ALT 10 - 54 U/L 45 81 (H) eGFR- >60 >60 eGFR-All Other Races . 51 >60 Cholesterol, Total <200 mg/dL 330 (H) Triglyceride <150 mg/dL 276 (H) HDL Cholesterol >39 mg/dL 72 LDL Cholesterol <100 mg/dL 203 (H) Non HDL Cholesterol <130 mg/dL 258 (H) Fasting Time hrs 11 VLDL Cholesterol <30 mg/dL 55 (H) TC:HDL Ratio <5.10 4.58 LDL:HDL Ratio <2.54 2.82 (H) Creatinine, Ur Random (UCRR) 20 - 300 mg/dL 86.8 Albumin, Urine Random 0.0 - 23.0 mg/L >4,400.0 (H) Albumin/Creat Ratio 0 - 30 mg/g Not calculated Hemoglobin A1C 4.3 - 5.6 % 11.3 (H) Estimated Average Glucose mg/dL 278 NT Pro BNP <125 pg/mL 2,137 (H) Impression: 42 year old year old male with h/o DM type I, HTN, hyperlipidemia, myasthenia gravis, s/p thymectomy, gastroparesis a/w DM, asthma, depression and anxiety, and venous insufficiency presenting with transaminitis, fatty liver, and ascites on imaging, might be associated with MeS. Will do complete workup for chronic liver diseases, CT liver. He might need a liver biopsy. Plan: - Reviewed the US and disussed in detail the metabolic syndrome, fatty liver, NAFLD, liver biopsy - Check CBC,BMP, LFT and INR. - Check chronic liver disease panel: MAURO, ASMA, A1AT, AMA, iron studies, ceruloplasmin - CT liver - Follow up with Dr. Mcnamara for gastroparesis - Colorectal consult for nocturnal stool incontinence - Tramadol for abdominal pain until see Dr. Mcnamara - Might restart Lipitor after workup complete (was stopped due to elevated LFTs) - Follow up visit after the work up is complete, 4-6 weeks Jr Gomez APRN.CNP See the above note for details. I saw and evaluated the patient with ALFREDO Gomez. I agree with the findings and the plan of care as documented in the note. Adrien Steel MD Referring Provider: CASSIE GRAHAM) [[id number]] Allergies As of Date: 12/26/2017 Noted Allergy Reaction LEVAQUIN (LEVOFLOXACIN) 12/07/2017 14 - Other: See Comments Comments: Aching in joints LISINOPRIL 11/14/2017 14 - Other: See Comments Comments: Lip swelling, possible angioedema, face swelling LOSARTAN 12/07/2017 7 - Swelling Comments: Face swelling NICODERM 10/03/2016 2 - Rash REGLAN (METOCLOPRAMIDE HCL) 07/26/2016 4 - Hives Date Reviewed: 12/26/2017 Reviewed by: Gomez Winn LPN - Fully Assessed Reason for Visit: New Patient [172] Cmt: fatty liver Primary Visit Diagnosis:Transaminitis [R74.0] Other Visit Diagnoses:Abnormal results of liver function studies [R94.5] Nausea [R11.0] Incontinence of feces, unspecified fecal incontinence type [R15.9] Epigastric pain [R10.13] Gastroparesis due to secondary diabetes (HCC) [E13.43] Fatty metamorphosis of liver [K76.0] Essential hypertension [I10] Myasthenia gravis (HCC) [G70.00] Mixed hyperlipidemia [E78.2] Malnutrition of moderate degree (HCC) [E44.0] Order(s):HEP A AB TOTAL [SQAHAVT] Order #: [id number] FUTURE MAURO BLOOD [SQANAS] Order #: [id number] FUTURE DLSXO-2-BJRIFDNPY BL [SQAAT] Order #: [id number] FUTURE SMOOTH MUSCLE AB PNL SCRN [SQSMOOTH] Order #: [id number] FUTURE IRON + TIBC [SQIRON] Order #: [id number] FUTURE FERRITIN BLD [SQFERR] Order #: [id number] FUTURE CERULOPLASMIN BLD [SQCERULO] Order #: [id number] FUTURE MITOCHONDRIAL AB PNL SCRN [SQMITO] Order #: [id number] FUTURE GGT BLD [SQGGT] Order #: [id number] FUTURE HEPATIC FUNCTION PNL [SQHFP] Order #: [id number] FUTURE PROTHROMBIN TIME/PT [SQPT] Order #: [id number] FUTURE CBC [SQCBC] Order #: [id number] FUTURE CT LIVER W IVCON [[id number]] Order #: [id number] FUTURE iv contrast (will be provided with radiology test)CT LIVER W IVCON Inject, intravenously, once for 1 dose. No IV access, insert saline lock prior to the beginning of sedation, infusion, injection of imaging exam. Discontinue saline lock post exam. If Pt. has a central line or IVAD, may access for administration according to line specific nursing protocol. Once exam is complete flush line and de-access according to line specific nursing protocol in the CT contrast administration guidelines link.Disp: 1 EachRfl: 0 CONSULT TO COLO-RECTAL SURGERY [] Order #: [id number]: 1 traMADol (ULTRAM) 50 mg tabletTake 1 tablet by mouth twice daily for 7 days.Disp: 14 tabletRfl: 0 MANOMETRY ANORECTAL [[id number]] Order #: [id number] FUTURE Prescriptions as of 12/26/2017 Sig: IV CONTRAST (RADIOLOGY PROCED* CT LIVER W IVCON Inject, intr* TRAMADOL 50 MG TABLET Take 1 tablet by mouth twice * INSULIN ASPART U-100 100 UNI* Take 1 unit per 8 grams of ca* INSULIN DETEMIR (U-100) 100 U* Inject subcutaneous 34 units * MUPIROCIN 2 % TOPICAL OINTMENT SERTRALINE 100 MG TABLET Take 1 tablet by mouth once d* COMPOUNDED PRESCRIPTION KNEE HIGH COMPRESSION STOCKIN* LOSARTAN 50 MG TABLET Take 1 tablet by mouth once d* Patient not taking: Reported on 12/22/2017 FUROSEMIDE 20 MG TABLET TAKE ONE TABLET BY MOUTH ONCE* PROMETHAZINE 25 MG TABLET Take 1 tablet by mouth every * MONTELUKAST 10 MG TABLET TAKE 1 TABLET AT BEDTIME GABAPENTIN 300 MG CAPSULE Take one capsule by mouth thr* PEN NEEDLE, DIABETIC 32 GAUGE* Use one needle for each dose.* HYDROCHLOROTHIAZIDE 50 MG TAB* Take 1 tablet by mouth once d* BLOOD SUGAR DIAGNOSTIC STRIPS Use as instructed 3-4 times d* LANCETS 33 GAUGE Use as directed 3-4 times willy* PYRIDOSTIGMINE BROMIDE 60 MG * Take 1 tablet by mouth three * CYCLOBENZAPRINE 10 MG TABLET Take 1 tablet by mouth three * METOPROLOL TARTRATE 50 MG TAB* Take 1 tablet by mouth twice * BUDESONIDE-FORMOTEROL HFA 160* Inhale 2 Puffs as instructed * ALBUTEROL SULFATE HFA 90 MCG/* Inhale 2 Puffs as instructed * ONDANSETRON 8 MG DISINTEGRATI* Take 8 mg by mouth as needed. TRIMETHOBENZAMIDE 300 MG CAPS* Take 1 capsule by mouth three* Patient not taking: Reported on 12/18/2017 OMEPRAZOLE 40 MG CAPSULE,YONNY* Take 1 capsule by mouth twice* SUCRALFATE 1 GRAM TABLET Take 1 g by mouth four times * MULTIVITAMIN ORAL Take by mouth. Problem List As Of Date 12/26/2017 Noted Resolved Anxiety and depression [F41.9, F32.9] INVALID FOR* Hypertension [I10] Diabetic neuropathy (HCC) [E11.40] More... Asthma [J45.909] GERD (gastroesophageal reflux disease) [K21.9] IBS (irritable bowel syndrome) [K58.9] More... Myasthenia gravis (HCC) [G70.00] More... Tobacco use [Z72.0] Type I diabetes mellitus (HCC) [E10.9] More... Hyperlipidemia [E78.5] Prescriptions ordered this encounter Disp Refills Start End IV CONTRAST (RADIOLOGY PROCEDURE) 1 Ea* 0 12/26/2017 12/27/2017 Class: In Office Sig: CT LIVER W IVCON Inject, intravenously, once for 1 dose. No IV access, insert saline lock prior to the beginning of sedation, infusion, injection of imaging exam. Discontinue saline lock post exam. If Pt. has a central line or IVAD, may access for administration according to line specific nursing protocol. Once exam is complete flush line and de-access according to line specific nursing protocol in the CT contrast administration guidelines link. TRAMADOL 50 MG TABLET 14 t* 0 12/26/2017 01/02/2018 Class: Print RX Route: ORAL Sig: Take 1 tablet by mouth twice daily for 7 days. Disposition: Return in about 4 weeks (around 01/23/2018). Follow-up and Disposition History Recorded Encounter Status:Closed by ADRIEN STEEL MD on 12/26/17 PROGRESS Observed: 12/22/2017 Status: COMPLETED Source: [place] 9:21 AM [facility] [place] REPOSITORY O ID: [id number] Author: Cari Hdz Service: (none) Author Type: Physician Type: Progress Notes Filed: 12/29/2017 12:58 PM Note Text: Consultation requested by Dr. Fam for an opinion regarding painful toenails. My final recommendations will be communicated back to the requesting physician by way of shared Medical record or letter to requesting physician via US mail. Initial Office Visit Subjective: This 42 year old male presents to clinic for diabetic foot check. Patient has the following complaints: painful right 1st and 3rd toenail. Patient admits to being diabetic for 18 years now and states that their blood sugar was 212 mg/dL this AM. Patient + B/T/N in feet at this time. Patient +pain in legs when walking. No other pedal complaints at this time. No change in medications or medical history since last visit. Patient currently smokes 1 pack per day. PAIN EVALUATION 12/22/2017 Pain Score: 8 Pain Location: Foot-Right Description: Dull;Pressure;Pulsating;Throbbing;Stiffness;Other: See comment patient needs to pull on toe to relieve pressure Duration Amount of Time: 6 Duration Units: Months Frequency: Continuous Intervention: Cold;Heat;Relaxation Hemoglobin A1C (%) Date Value 11/07/2017 11.3 04/25/2017 13.1 12/27/2016 13.3 PCP: Cassie Graham MD PAST MEDICAL HISTORY Diagnosis Date - Anxiety and depression - Asthma - Diabetic neuropathy (HCC) Seeing Dr. Land - Edentulous - Emphysema lung (HCC) early stages - Fatty liver - Gastroparesis - GERD (gastroesophageal reflux disease) - Hyperlipidemia - Hypertension - IBS (irritable bowel syndrome) previously seeing GI - Myasthenia gravis (HCC) Seeing Dr. Land-neurology - Pulmonary nodules - Shingles - Tobacco use - Type I diabetes mellitus (HCC) Seeing Dr. Fam Current Outpatient Prescriptions: insulin aspart U-100 (NOVOLOG FLEXPEN U-100 INSULIN) 100 unit/mL inpn Take 1 unit per 8 grams of carbs +SSI. 150-200: 1unit, 201-250: 2units, 251-300: 3units, 301-350: 4units, 351-400:5units, TDD 30units. insulin detemir U-100 (LEVEMIR FLEXTOUCH U-100 INSULN) 100 unit/mL (3 mL) inpn injection Inject subcutaneous 34 units daily. sertraline (ZOLOFT) 100 mg tablet Take 1 tablet by mouth once daily. Compression Knee Highs KNEE HIGH COMPRESSION STOCKINGS 20- 30 MM. DX: EDEMA furosemide (LASIX) 20 mg tablet TAKE ONE TABLET BY MOUTH ONCE DAILY promethazine (PHENERGAN) 25 mg tablet Take 1 tablet by mouth every 6 hours as needed for Nausea/Vomiting. montelukast (SINGULAIR) 10 mg tablet TAKE 1 TABLET AT BEDTIME Insulin [place], Disposable, (BD ULTRA-FINE DAYA PEN NEEDLES) 32 gauge x ndle Use one needle for each dose. 4/day. hydroCHLOROthiazide (HYDRODIURIL, ESIDRIX) 50 mg tablet Take 1 tablet by mouth once daily. blood sugar diagnostic (TRUE METRIX GLUCOSE TEST STRIP) test strip Use as instructed 3-4 times daily. lancets (TRUEPLUS LANCETS) 33 gauge misc Use as directed 3- 4 times daily. pyridostigmine (MESTINON) 60 mg tablet Take 1 tablet by mouth three times daily. As needed based on activity. Dr. Land, [facility] metoprolol tartrate, short acting, (LOPRESSOR) 50 mg tablet Take 1 tablet by mouth twice daily. budesonide-formoterol (SYMBICORT) 160-4.5 mcg/actuation inhaler Inhale 2 Puffs as instructed twice daily. albuterol HFA (VENTOLIN HFA) 90 mcg/actuation inhaler Inhale 2 Puffs as instructed every 4 hours as needed. ondansetron orally disintegrating (ZOFRAN ODT) 8 mg disintegrating tablet Take 8 mg by mouth as needed. Omeprazole 40 mg capsule Take 1 capsule by mouth twice daily before meals (0600/1600). sucralfate (CARAFATE) 1 gram tablet Take 1 g by mouth four times daily. MULTIVITAMIN ORAL Take by mouth. mupirocin (BACTROBAN) 2 % ointment losartan (COZAAR) 50 mg tablet Take 1 tablet by mouth once daily. (Patient not taking: Reported on 12/22/2017 ) gabapentin (NEURONTIN) 300 mg capsule Take one capsule by mouth three times daily, as directed. DX: E11.40 cyclobenzaprine (FLEXERIL) 10 mg tablet Take 1 tablet by mouth three times daily as needed for Muscle Spasm. Dr. Swanson trimethobenzamide (TIGAN) 300 mg capsule Take 1 capsule by mouth three times daily. (Patient not taking: Reported on 12/18/2017 ) No current facility-administered medications for this visit. ALLERGIES Allergen Reactions - Levaquin [Levofloxa* Other: See Comments Aching in joints - Lisinopril Other: See Comments Lip swelling, possible angioedema, face swelling - Losartan Swelling Face swelling - Nicoderm Rash - Reglan [Metoclopram* Hives PAST SURGICAL HISTORY Procedure Laterality Date - COLONOSCOPY 09/08/2015 poor prep - procedure aborted - EGD 01/04/2016 [facility] - PAST SURGICAL HISTORY OF Thymectomy - PAST SURGICAL HISTORY OF Cholecystectomy - PAST SURGICAL HISTORY OF teeth extraction-total FAMILY HISTORY Problem Relation Age of Onset - Cancer Father lung - other (Other) Daughter Depression/Psych - Thyroid Maternal Grandmother - Cancer Paternal Grandmother lung - Cancer Paternal Grandfather throat, brain - Hypertension Mother - other (thyroid issues) Mother Social History Marital status: Single Spouse name: Years of education: Number of children: 2 Social History Main Topics Smoking status: Current Every Day Smoker Packs/day: 1.00 Years: 26.00 Types: Cigarettes Smokeless tobacco: Never Used Comment: down from 2 packs per day Alcohol use: Yes Comment: rarely Drug use: Yes Frequency: 3.0 times per week Types: Marijuana Comment: now down to once a week Sexual activity: Not Currently REVIEW OF SYSTEMS GENERAL: Negative for Malaise, significant weight loss, fever RESPIRATORY: Negative for cough, wheezing and shortness of breath CARDIOVASCULAR: Negative for chest pain, leg swelling and palpitations GI: Negative for abdominal discomfort, blood in stools or black stools and change in bowel habits : Negative for dysuria, frequency and incontinence MUSCULOSKELETAL: Negative for joint pain or swelling, back pain, and muscle pain. SKIN: Negative for lesions, rash, and itching. HEMATOLOGY/LYMPHOLOGY Negative for prolonged bleeding, bruising easily, and swollen nodes. ENDOCRINE: Negative for cold or heat intolerance, polyuria, polydipsia and goiter. NEURO: negative The remainder of the review of systems is noncontributory. Objective: Patient presents to clinic ambulating in [facility] Constitutional: Pt is a well developed 42 year old male who is alert, oriented, cooperative and in no apparent distress. Eyes: Following during examination. No redness or drainage. Respiratory: RR normal and nonlabored. Even breathing. No evidence of distress. Psychology: Patient is engaged during conversation. Normal affect and mood. Does not appear depressed or anxious. Vasc: DP and PT pulses are faint bilateral. CFT is less than 5 seconds bilateral. Skin temperature is warm to warm proximal to distal bilateral. There is no edema or varicosities noted. Hair growth present. Neuro: Protective sensation is absent to the foot and toes when tested with the 5.07 SWM bilateral. Vibratory sensation is absent at the hallux bilateral. +Significant neurological defecits. Derm: Inspection and palpation performed. Nails 1,3 right are painful, discolored-yellow, thick, crumbly, dystrophic and with subungal debris. Skin is of normal turgor and texture. Hyperkeratosis not present. NO ulcerations, scars, verruca or other lesions noted. Ortho: Ankle joint DF is full with the knee extended and full with knee flexed. No pain or crepitus noted. STJ, MTJ ROM are full and free of pain or crepitus. Muscle strength is 5/5 for dorsiflexors, plantarflexors, inverters, everters. Digital deformities include no. 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 Patient was seen and evaluated. 2. Patient was instructed on the continued importance of diabetic foot care along with proper diet and keeping their blood sugar under control to prevent complications. Instructions given both oral and written. 3. Patient toenails 1-5 right and left 1st, and 5th were debrided in length and thickness. A review of the patient's PMH and Podiatric physical exam was completed. We discussed the possible etiologies of discolored, dystrophic, and thickened nails including fungus, yeast, mold as well as in some instances, prior trauma, or mechanical causes such as repetitive microtrauma in shoe gear. We discussed topical medication for discolored toenails which has very low success but no major side effects. We discussed oral medication. Patient will need hepatic testing prior to use. Patient informed of risks associated with Lamisil. We discussed removal of toenails. If patient desires removal of toenails, would require pvr to assure healing potential. I would require him to get his a1c down prior to removal. 4. Diabetic shoes were ordered 5. F/u in 3 months Cari Hdz DPM PROGRESS Observed: 12/22/2017 Status: COMPLETED Source: [place] 9:01 AM [facility] REPOSITORY HNO ID: [id number] Author: Gabriella Luke MA Service: (none) Author Type: (none) Type: Progress Notes Filed: 12/22/2017 11:56 AM Note Text: AMB ROOMING INTAKE FLOWSHEET DATA Risk Screening Do you have concerns about personal safety or safety in the home?: No Pain Pain Score: 8/10 Pain Location: Foot-Right Description: Dull, Pressure, Pulsating, Throbbing, Stiffness, Other: See comment (patient needs to pull on toe to relieve pressure) Duration Amount of Time: 6 Duration Units: Months Frequency: Continuous Intervention: Cold, Heat, Relaxation Patient ishere for onychoycosis on right foot. Patient stating when sitting pain is at 5. Patient states pain in both arch area. Patient is diabetic,and reports home non fasting blood glucose reading at 212 mg/dL Patient is a smoker. Gabriella Luke MA . CNOV Observed: 12/22/2017 Status: COMPLETED Source: [place] 8:40 AM [facility] REPOSITORY Office Visit (PODIWS) BUSCHUR,AMARILYS D JR. ([id number]) 1975 M Date Time Provider Department 12/22/17 8:40 AM [facility] During your visit today, we recorded the following information about you: Gabriella Ti YING 12/22/2017 11:56 AM Signed AMB ROOMING INTAKE FLOWSHEET DATA Risk Screening Do you have concerns about personal safety or safety in the home?: No Pain Pain Score: 8/10 Pain Location: Foot-Right Description: Dull, Pressure, Pulsating, Throbbing, Stiffness, Other: See comment (patient needs to pull on toe to relieve pressure) Duration Amount of Time: 6 Duration Units: Months Frequency: Continuous Intervention: Cold, Heat, Relaxation Patient ishere for onychoycosis on right foot. Patient stating when sitting pain is at 5. Patient states pain in both arch area. Patient is diabetic,and reports home non fasting blood glucose reading at 212 mg/dL Patient is a smoker. Gabriella Luke MA . Cari Hdz DPM 12/29/2017 12:58 PM Addendum Consultation requested by Dr. Fam for an opinion regarding painful toenails. My final recommendations will be communicated back to the requesting physician by way of shared Medical record or letter to requesting physician via [place] mail. Initial Office Visit Subjective: This 42 year old male presents to clinic for diabetic foot check. Patient has the following complaints: painful right 1st and 3rd toenail. Patient admits to being diabetic for 18 years now and states that their blood sugar was 212 mg/dL this AM. Patient + B/T/N in feet at this time. Patient +pain in legs when walking. No other pedal complaints at this time. No change in medications or medical history since last visit. Patient currently smokes 1 pack per day. PAIN EVALUATION 12/22/2017 Pain Score: 8 Pain Location: Foot-Right Description: Dull;Pressure;Pulsating;Throbbing;Stiffness;Other: See comment patient needs to pull on toe to relieve pressure Duration Amount of Time: 6 Duration Units: Months Frequency: Continuous Intervention: Cold;Heat;Relaxation Hemoglobin A1C (%) Date Value 11/07/2017 11.3 04/25/2017 13.1 12/27/2016 13.3 PCP: Cassie Graham MD PAST MEDICAL HISTORY Diagnosis Date - Anxiety and depression - Asthma - Diabetic neuropathy (HCC) Seeing Dr. Land - Edentulous - Emphysema lung (HCC) early stages - Fatty liver - Gastroparesis - GERD (gastroesophageal reflux disease) - Hyperlipidemia - Hypertension - IBS (irritable bowel syndrome) previously seeing GI - Myasthenia gravis ([facility]) Seeing Dr. Land-neurology - Pulmonary nodules - Shingles - Tobacco use - Type I diabetes mellitus (HCC) Seeing Dr. Fam Current Outpatient Prescriptions: insulin aspart U-100 (NOVOLOG FLEXPEN U-100 INSULIN) 100 unit/mL inpn Take 1 unit per 8 grams of carbs +SSI. 150-200: 1unit, 201-250: 2units, 251-300: 3units, 301-350: 4units, 351-400:5units, TDD 30units. insulin detemir U-100 (LEVEMIR FLEXTOUCH U-100 INSULN) 100 unit/mL (3 mL) inpn injection Inject subcutaneous 34 units daily. sertraline (ZOLOFT) 100 mg tablet Take 1 tablet by mouth once daily. Compression Knee Highs KNEE HIGH COMPRESSION STOCKINGS 20- 30 MM. DX: EDEMA furosemide (LASIX) 20 mg tablet TAKE ONE TABLET BY MOUTH ONCE DAILY promethazine (PHENERGAN) 25 mg tablet Take 1 tablet by mouth every 6 hours as needed for Nausea/Vomiting. montelukast (SINGULAIR) 10 mg tablet TAKE 1 TABLET AT BEDTIME Insulin [place], Disposable, (BD ULTRA-FINE DAYA PEN NEEDLES) 32 gauge x ndle Use one needle for each dose. 4/day. hydroCHLOROthiazide (HYDRODIURIL, ESIDRIX) 50 mg tablet Take 1 tablet by mouth once daily. blood sugar diagnostic (TRUE METRIX GLUCOSE TEST STRIP) test strip Use as instructed 3-4 times daily. lancets (TRUEPLUS LANCETS) 33 gauge misc Use as directed 3- 4 times daily. pyridostigmine (MESTINON) 60 mg tablet Take 1 tablet by mouth three times daily. As needed based on [facility]. Dr[facility] metoprolol tartrate, short acting, (LOPRESSOR) 50 mg tablet Take 1 tablet by mouth twice daily. budesonide-formoterol (SYMBICORT) 160-4.5 mcg/actuation inhaler Inhale 2 Puffs as instructed twice daily. albuterol HFA (VENTOLIN HFA) 90 mcg/actuation inhaler Inhale 2 Puffs as instructed every 4 hours as needed. ondansetron orally disintegrating (ZOFRAN ODT) 8 mg disintegrating tablet Take 8 mg by mouth as needed. Omeprazole 40 mg capsule Take 1 capsule by mouth twice daily before meals (0600/1600). sucralfate (CARAFATE) 1 gram tablet Take 1 g by mouth four times daily. MULTIVITAMIN ORAL Take by mouth. mupirocin (BACTROBAN) 2 % ointment losartan (COZAAR) 50 mg tablet Take 1 tablet by mouth once daily. (Patient not taking: Reported on 12/22/2017 ) gabapentin (NEURONTIN) 300 mg capsule Take one capsule by mouth three times daily, as directed. DX: E11.40 cyclobenzaprine (FLEXERIL) 10 mg tablet Take 1 tablet by mouth three times daily as needed for Muscle Spasm. Dr. Swanson trimethobenzamide (TIGAN) 300 mg capsule Take 1 capsule by mouth three times daily. (Patient not taking: Reported on 12/18/2017 ) No current facility-administered medications for this visit. ALLERGIES Allergen Reactions - Levaquin [Levofloxa* Other: See Comments Aching in joints - Lisinopril Other: See Comments Lip swelling, possible angioedema, face swelling - Losartan Swelling Face swelling - Nicoderm Rash - Reglan [Metoclopram* Hives PAST SURGICAL HISTORY Procedure Laterality Date - COLONOSCOPY 09/08/2015 poor prep - procedure aborted - EGD 01/04/2016 [facility] - PAST SURGICAL HISTORY OF Thymectomy - PAST SURGICAL HISTORY OF Cholecystectomy - PAST SURGICAL HISTORY OF teeth extraction-total FAMILY HISTORY Problem Relation Age of Onset - Cancer Father lung - other (Other) Daughter Depression/Psych - Thyroid Maternal Grandmother - Cancer Paternal Grandmother lung - Cancer Paternal Grandfather throat, brain - Hypertension Mother - other (thyroid issues) Mother Social History Marital status: Single Spouse name: Years of education: Number of children: 2 Social History Main Topics Smoking status: Current Every Day Smoker Packs/day: 1.00 Years: 26.00 Types: Cigarettes Smokeless tobacco: Never Used Comment: down from 2 packs per day Alcohol use: Yes Comment: rarely Drug use: Yes Frequency: 3.0 times per week Types: Marijuana Comment: now down to once a week Sexual activity: Not Currently REVIEW OF SYSTEMS GENERAL: Negative for Malaise, significant weight loss, fever RESPIRATORY: Negative for cough, wheezing and shortness of breath CARDIOVASCULAR: Negative for chest pain, leg swelling and palpitations GI: Negative for abdominal discomfort, blood in stools or black stools and change in bowel habits : Negative for dysuria, frequency and incontinence MUSCULOSKELETAL: Negative for joint pain or swelling, back pain, and muscle pain. SKIN: Negative for lesions, rash, and itching. HEMATOLOGY/LYMPHOLOGY Negative for prolonged bleeding, bruising easily, and swollen nodes. ENDOCRINE: Negative for cold or heat intolerance, polyuria, polydipsia and goiter. NEURO: negative The remainder of the review of systems is noncontributory. Objective: Patient presents to clinic ambulating in [facility] Constitutional: Pt is a well developed 42 year old male who is alert, oriented, cooperative and in no apparent distress. Eyes: Following during examination. No redness or drainage. Respiratory: RR normal and nonlabored. Even breathing. No evidence of distress. Psychology: Patient is engaged during conversation. Normal affect and mood. Does not appear depressed or anxious. Vasc: DP and PT pulses are faint bilateral. CFT is less than 5 seconds bilateral. Skin temperature is warm to warm proximal to distal bilateral. There is no edema or varicosities noted. Hair growth present. Neuro: Protective sensation is absent to the foot and toes when tested with the 5.07 SWM bilateral. Vibratory sensation is absent at the hallux bilateral. +Significant neurological defecits. Derm: Inspection and palpation performed. Nails 1,3 right are painful, discolored-yellow, thick, crumbly, dystrophic and with subungal debris. Skin is of normal turgor and texture. Hyperkeratosis not present. NO ulcerations, scars, verruca or other lesions noted. Ortho: Ankle joint DF is full with the knee extended and full with knee flexed. No pain or crepitus noted. STJ, MTJ ROM are full and free of pain or crepitus. Muscle strength is 5/5 for dorsiflexors, plantarflexors, inverters, everters. Digital deformities include no. 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 Patient was seen and evaluated. 2. Patient was instructed on the continued importance of diabetic foot care along with proper diet and keeping their blood sugar under control to prevent complications. Instructions given both oral and written. 3. Patient toenails 1-5 right and left 1st, and 5th were debrided in length and thickness. A review of the patient's PMH and Podiatric physical exam was completed. We discussed the possible etiologies of discolored, dystrophic, and thickened nails including fungus, yeast, mold as well as in some instances, prior trauma, or mechanical causes such as repetitive microtrauma in shoe gear. We discussed topical medication for discolored toenails which has very low success but no major side effects. We discussed oral medication. Patient will need hepatic testing prior to use. Patient informed of risks associated with Lamisil. We discussed removal of toenails. If patient desires removal of toenails, would require pvr to assure healing potential. I would require him to get his a1c down prior to removal. 4. Diabetic shoes were ordered 5. F/u in 3 months ZADYA Brody Ma 12/22/2017 9:34 AM Signed Diabetes Foot Care Instructions When you have diabetes, proper foot care is very important. Poor foot care may lead to amputation of a foot or leg. As a person with diabetes, you are more vulnerable to foot problems, because diabetes can damage your nerves and reduce blood flow to your feet. Here are some diabetes foot care tips to follow: Wash and Dry Your Feet Daily Use mild soaps Use warm water Pat your skin dry; do not rub. Thoroughly dry your feet. After washing, use lotion on your feet to prevent cracking. Do not put lotion between your toes. ? Examine Your Feet Each Day Check the tops and bottoms of your feet. Have someone else look at your feet if you cannot see them. Check for dry, cracked skin. Look for blisters, cuts, scratches, or other sores. Check for redness, increased warmth, or tenderness when touching any area of your feet. Check for ingrown toenails, corns, and calluses. If you get a blister or sore from your shoes, do not pop it. Apply a bandage and wear a different pair of shoes. Take Care of Your Toenails Cut toenails after bathing, when they are soft. Cut toenails straight across and smooth with a nail file. Avoid cutting into the corners of toes. Do not cut cuticles. If you have neuropathy (or decreased sensation in your feet) a strike warfare/missile systems officer should always cut your toenails. ? Be Careful When Exercising Walk and exercise in comfortable shoes. Do not exercise when you have open sores on your feet. Protect Your Feet With Shoes and Socks Never go barefoot. Always protect your feet by wearing shoes or hard-soled slippers or footwear. Avoid shoes with high heels and pointed toes. Avoid shoes that expose your toes or heels (such as open-toed shoes or sandals). These types of shoes increase your risk for injury and potential infections. Try on new footwear with the type of socks you usually wear. Do not wear new shoes for more than an hour at a time. Change your socks daily. Look and feel inside your shoes before putting them on to make sure there are no foreign objects or rough areas. Avoid tight socks. Wear natural-fiber socks (cotton, wool, or a cotton-wool blend). Wear special shoes if your health care provider recommends them. Wear shoes/boots that will protect your feet from various weather conditions (cold, moisture, etc.). Make sure your shoes fit properly. If you have neuropathy (nerve damage), you may not notice that your shoes are too tight. Perform the footwear test described below. Footwear Test Use this simple test to see if your shoes fit correctly: Stand on a piece of paper. (Make sure you are standing and not sitting, because your foot changes shape when you stand.) Trace the outline of your foot. Trace the outline of your shoe. Compare the tracings: Is the shoe too narrow? Is your foot crammed into the shoe? The shoe should be at least 1/2 inch longer than your longest toe and as wide as your foot. Proper Shoe Choices The following types of shoes are best for people with diabetes Closed toes and heels Leather uppers without a seam inside At least 1/2 inch extra space at the end of your longest toe Inside of shoe should be soft with no rough areas Outer sole should be made of stiff material Shoes should be at least as wide as your feet Tips for Foot Care in Diabetes Don't wait to treat a minor foot problem if you have diabetes. Follow your health care provider's guidelines and first aid guidelines. Report foot injuries and infections to your health care provider immediately. Check water temperature with your elbow, not your foot. Do not use a heating pad on your feet. Do not cross your legs. Do not self-treat your corns, calluses, or other foot problems. Go to your health care provider or strike warfare/missile systems officer to treat these conditions. Janay Méndez [place] [address] [facility] [address] PH: [phone] [place] [address] [facility] [address] [address] PH: [phone] [place] [address] [facility] [address] PH: [phone] [place] [address] [facility] [address] PH: [phone] or [phone] [place] [address] [facility] [address] PH: [phone] [place] [address] [facility] [address] PH: [phone] Referring Provider: SELF [200] Allergies As of Date: 12/22/2017 Noted Allergy Reaction LEVAQUIN (LEVOFLOXACIN) 12/07/2017 14 - Other: See Comments Comments: Aching in joints LISINOPRIL 11/14/2017 14 - Other: See Comments Comments: Lip swelling, possible angioedema, face swelling LOSARTAN 12/07/2017 7 - Swelling Comments: Face swelling NICODERM 10/03/2016 2 - Rash REGLAN (METOCLOPRAMIDE HCL) 07/26/2016 4 - Hives Date Reviewed: 12/22/2017 Reviewed by: Gabriella Luke MA - Fully Assessed Reason for Visit: New Patient [172] Primary Visit Diagnosis:Onychomycosis [B35.1] Other Visit Diagnoses:Pain in toe of right foot [M79.674] Pain in toe of left foot [M79.675] Diminished pulses in lower extremity [R09.89] 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) [E10.21] Order(s):DIAB SHOE FOR DENSITY INSERT [[id number]] Order #: [id number] PVR ANK PRESS COMPA VAS LAB [[id number]] Order #: [id number] FUTURE Prescriptions as of 12/22/2017 Sig: INSULIN ASPART U-100 100 UNI* Take 1 unit per 8 grams of ca* INSULIN DETEMIR (U-100) 100 U* Inject subcutaneous 34 units * SERTRALINE 100 MG TABLET Take 1 tablet by mouth once d* COMPOUNDED PRESCRIPTION KNEE HIGH COMPRESSION STOCKIN* FUROSEMIDE 20 MG TABLET TAKE ONE TABLET BY MOUTH ONCE* PROMETHAZINE 25 MG TABLET Take 1 tablet by mouth every * MONTELUKAST 10 MG TABLET TAKE 1 TABLET AT BEDTIME PEN NEEDLE, DIABETIC 32 GAUGE* Use one needle for each dose.* HYDROCHLOROTHIAZIDE 50 MG TAB* Take 1 tablet by mouth once d* BLOOD SUGAR DIAGNOSTIC STRIPS Use as instructed 3-4 times d* LANCETS 33 GAUGE Use as directed 3-4 times willy* PYRIDOSTIGMINE BROMIDE 60 MG * Take 1 tablet by mouth three * METOPROLOL TARTRATE 50 MG TAB* Take 1 tablet by mouth twice * BUDESONIDE-FORMOTEROL HFA 160* Inhale 2 Puffs as instructed * ALBUTEROL SULFATE HFA 90 MCG/* Inhale 2 Puffs as instructed * ONDANSETRON 8 MG DISINTEGRATI* Take 8 mg by mouth as needed. OMEPRAZOLE 40 MG CAPSULE,YONNY* Take 1 capsule by mouth twice* SUCRALFATE 1 GRAM TABLET Take 1 g by mouth four times * MULTIVITAMIN ORAL Take by mouth. MUPIROCIN 2 % TOPICAL OINTMENT LOSARTAN 50 MG TABLET Take 1 tablet by mouth once d* Patient not taking: Reported on 12/22/2017 GABAPENTIN 300 MG CAPSULE Take one capsule by mouth thr* CYCLOBENZAPRINE 10 MG TABLET Take 1 tablet by mouth three * TRIMETHOBENZAMIDE 300 MG CAPS* Take 1 capsule by mouth three* Patient not taking: Reported on 12/18/2017 Problem List As Of Date 12/22/2017 Noted Resolved Anxiety and depression [F41.9, F32.9] INVALID FOR* Hypertension [I10] Diabetic neuropathy (HCC) [E11.40] More... Asthma [J45.909] GERD (gastroesophageal reflux disease) [K21.9] IBS (irritable bowel syndrome) [K58.9] More... Myasthenia gravis (HCC) [G70.00] More... Tobacco use [Z72.0] Type I diabetes mellitus (HCC) [E10.9] More... Hyperlipidemia [E78.5] Other instructions from your clinician: Diabetes Foot Care Instructions When you have diabetes, proper foot care is very important. Poor foot care may lead to amputation of a foot or leg. As a person with diabetes, you are more vulnerable to foot problems, because diabetes can damage your nerves and reduce blood flow to your feet. Here are some diabetes foot care tips to follow: Wash and Dry Your Feet Daily Use mild soaps Use warm water Pat your skin dry; do not rub. Thoroughly dry your feet. After washing, use lotion on your feet to prevent cracking. Do not put lotion between your toes. ? Examine Your Feet Each Day Check the tops and bottoms of your feet. Have someone else look at your feet if you cannot see them. Check for dry, cracked skin. Look for blisters, cuts, scratches, or other sores. Check for redness, increased warmth, or tenderness when touching any area of your feet. Check for ingrown toenails, corns, and calluses. If you get a blister or sore from your shoes, do not pop it. Apply a bandage and wear a different pair of shoes. Take Care of Your Toenails Cut toenails after bathing, when they are soft. Cut toenails straight across and smooth with a nail file. Avoid cutting into the corners of toes. Do not cut cuticles. If you have neuropathy (or decreased sensation in your feet) a strike warfare/missile systems officer should always cut your toenails. ? Be Careful When Exercising Walk and exercise in comfortable shoes. Do not exercise when you have open sores on your feet. Protect Your Feet With Shoes and Socks Never go barefoot. Always protect your feet by wearing shoes or hard-soled slippers or footwear. Avoid shoes with high heels and pointed toes. Avoid shoes that expose your toes or heels (such as open- toed shoes or sandals). These types of shoes increase your risk for injury and potential infections. Try on new footwear with the type of socks you usually wear. Do not wear new shoes for more than an hour at a time. Change your socks daily. Look and feel inside your shoes before putting them on to make sure there are no foreign objects or rough areas. Avoid tight socks. Wear natural-fiber socks (cotton, wool, or a cotton-wool blend). Wear special shoes if your health care provider recommends them. Wear shoes/boots that will protect your feet from various weather conditions (cold, moisture, etc.). Make sure your shoes fit properly. If you have neuropathy (nerve damage), you may not notice that your shoes are too tight. Perform the footwear test described below. Footwear Test Use this simple test to see if your shoes fit correctly: Stand on a piece of paper. (Make sure you are standing and not sitting, because your foot changes shape when you stand.) Trace the outline of your foot. Trace the outline of your shoe. Compare the tracings: Is the shoe too narrow? Is your foot crammed into the shoe? The shoe should be at least 1/2 inch longer than your longest toe and as wide as your foot. Proper Shoe Choices The following types of shoes are best for people with diabetes Closed toes and heels Leather uppers without a seam inside At least 1/2 inch extra space at the end of your longest toe Inside of shoe should be soft with no rough areas Outer sole should be made of stiff material Shoes should be at least as wide as your feet Tips for Foot Care in Diabetes Don't wait to treat a minor foot problem if you have diabetes. Follow your health care provider's guidelines and first aid guidelines. Report foot injuries and infections to your health care provider immediately. Check water temperature with your elbow, not your foot. Do not use a heating pad on your feet. Do not cross your legs. Do not self-treat your corns, calluses, or other foot problems. Go to your health care provider or strike warfare/missile systems officer to treat these conditions. Janay [place] [address] [facility] [place], [facility] [address] PH: [phone] [place] [address] [facility] [address], [facility] [address] PH: [phone] [place] [address], [facility] [address] PH: [phone] [place] [address], [place] [address] PH: [phone] or [phone] [place] [address], [facility] [address] PH: [phone] [place] [address], [facility] [address] PH: [phone] Encounter Status:Closed by CARI HDZ DPM on 12/22/17 PROGRESS Observed: 12/22/2017 Status: COMPLETED Source: [place] 8:24 AM [facility] REPOSITORY HNO ID: [id number] Author: Angelique (Rt) Willi Eagle Service: (none) Author Type: Grapple Operator Type: Progress Notes Filed: 12/22/2017 8:24 AM Note Text: Radiology Service Progress Note PATIENT NAME: Amarilys Kaiser Jr. DATE OF SERVICE: December 22, 2017 TIME: 8:24 AM PATIENT IDENTITY VERIFICATION COMPLETED USING TWO (2) METHODS: Patient confirmed name verbally and Date of . PATIENT GENDER DATA: Male PATIENT RELEVANT IMPLANT DATA REVIEWED: Not Applicable RADIOLOGY DEPARTMENT: General X-ray: Exam(s) Completed: Lower Extremity X-Ray(s): Feet, Bilateral and Wt. Bearing: PERIPHERAL IV DATA: Not applicable SIGNED BY: RT Bianca December 22, 2017 8:24 AM XR FOOT 3V AP/LAT/OBL Observed: 12/22/2017 Status: F Source: [facility] 8:22 AM [facility] REPOSITORY * * *Final Report* * * DATE OF EXAM: Dec 22 2017 8:22AM WRX [id number] - XR FOOT 3V AP/LAT/OBL COMPA / PROCEDURE REASON: Pain, unspecified * * * * Physician Interpretation * * * * Clinical Information: Pain Technique: Three views of both feet were obtained. Results: There is no fracture or dislocation. Joint spaces are maintained. No lytic or blastic lesions identified. No soft tissue abnormalities are seen. IMPRESSION: Negative bilateral feet. Sales Producer: MORIS Transcribe Date/Time: Dec 22 2017 3:40P Dictated by : MADELIN BLOOM MD This examination was interpreted and the report reviewed and electronically signed by: MADELIN BLOOM MD on Dec 22 2017 3:40PM EST [id number] PROGRESS Observed: 12/21/2017 Status: COMPLETED Source: [place] 11:57 AM [facility] REPOSITORY O ID: [id number] Author: Lissette Parikh LPN Service: (none) Author Type: (none) Type: Progress Notes Filed: 12/21/2017 1:13 PM Note Text: 42 year old male here for INACTIVATED INFLUENZA VACCINE. 8867-9726 Season Patient is identified by name and date of : Yes [] CONTRAINDICATIONS color enhanced section Age less than 6 months? No Allergy to eggs, chicken, chicken feathers, or chicken dander? No Allergy to thimerosal (a preservative) or formaldehyde, gelatin? No History of severe reaction to any vaccine component or a previous dose of influenza vaccination? No History of Guillain-Brookings Syndrome within 6 weeks after a previous influenza vaccine? No Patient is not moderately or severely ill? No Current temperature greater or equal to 100.4F? No History of Bone Marrow Transplant prior 6 months or solid organ transplant in the past 3 months ? No History of fainting after a prior injection or medical procedure? No- ? If patient has fainted in the past, the CDC recommends sitting or lying down for 15 minutes after the vaccination. [] VERIFICATION color enhanced section Was the answer Yes for any of the above contraindications? No contraindications present. Acceptable to proceed with vaccine. Patient/guardian agrees the above answers are true to the best of their knowledge? Yes Flu vaccine information sheet given? Yes [facility] in [facility] for details of immunizations adminstered today. Patient age: [age] year old For The 3837-8175 Flu Season 6-35 months old: Fluzone 0.25 ml - IM (Preservative Free) 3 years of age: Fluzone 0.5 ml - IM (Preservative Free) 3 years and older: Fluzone 0.5 ml- IM-(with Preservatives) 65+ years old: 2-49 years old Fluzone High-Dose 0.5 ml - IM (Preservative Free) FLUMIST- intranasal REMEMBER: If patient is less than 9 years of age and this is the first vaccine of Influenza to be received in any flu season, they should receive a second dose in one months time. PROGRESS Observed: 12/21/2017 Status: COMPLETED Source: [place] 11:01 AM [facility] REPOSITORY HNO ID: [id number] Author: Bere Montgomery) Podlogar Service: (none) Author Type: Nurse Practitioner Type: Progress Notes Filed: 12/21/2017 1:13 PM Note Text: 12/21/2017 Patient presents with: Diabetic Teaching: Carb counting and meal planning SUBJECTIVE: This is a 42 year old that is here today for Above Complaints. Patient saw Dr. Fam on 12/18/2017 for Type 1 DM. Patient reports he was told to see PCP for teaching on carb counting and meal planning. Office note from Dr. Fam reads: At this point I will initiate the following changes to his diabetes regimen: go up on Lantus to 34 units at HS, ICR to 1:8, and ISF to 1:40. Patient reports he has not been following carb counting. He does report he understands how to do this but would like to review with me today. He is drinking Boost for diabetics 3 times a day which has 23 carbs in it. He reports he needs to eat 6 smaller meals a day because he has gastroparesis. PAST MEDICAL HISTORY Diagnosis Date - Anxiety and depression - Asthma - Diabetic neuropathy (HCC) Seeing Dr. Land - Edentulous - Emphysema lung (HCC) early stages - Fatty liver - Gastroparesis - GERD (gastroesophageal reflux disease) - Hyperlipidemia - Hypertension - IBS (irritable bowel syndrome) previously seeing GI - Myasthenia gravis ([facility]) Seeing Dr. Land-neurology - Pulmonary nodules - Shingles - Tobacco use - Type I diabetes mellitus (HCC) Seeing Dr. Fam ALLERGIES Levaquin [Levofloxacin]; Lisinopril; Losartan; Nicoderm; Reglan [Metoclopramide Hcl] MEDICATIONS Current Outpatient Prescriptions: mupirocin (BACTROBAN) 2 % ointment sertraline (ZOLOFT) 100 mg tablet Take 1 tablet by mouth once daily. Compression Knee Highs KNEE HIGH COMPRESSION STOCKINGS 20- 30 MM. DX: EDEMA losartan (COZAAR) 50 mg tablet Take 1 tablet by mouth once daily. insulin detemir U-100 (LEVEMIR FLEXTOUCH U-100 INSULN) 100 unit/mL (3 mL) inpn injection Inject subcutaneous 30 units daily. (Patient taking differently: Inject 14 Units subcutaneously daily at bedtime. Inject subcutaneous 30 units daily. ) furosemide (LASIX) 20 mg tablet TAKE ONE TABLET BY MOUTH ONCE DAILY insulin aspart U-100 (NOVOLOG FLEXPEN U-100 INSULIN) 100 unit/mL inpn Take 1 unit per 10 grams of carbs +SSI. 150-200: 1unit, 201-250: 2units, 251-300: 3units, 301-350: 4units, 351-400:5units, TDD 30units. promethazine (PHENERGAN) 25 mg tablet Take 1 tablet by mouth every 6 hours as needed for Nausea/Vomiting. montelukast (SINGULAIR) 10 mg tablet TAKE 1 TABLET AT BEDTIME gabapentin (NEURONTIN) 300 mg capsule Take one capsule by mouth three times daily, as directed. DX: E11.40 Insulin [place], Disposable, (BD ULTRA-FINE DAYA PEN NEEDLES) 32 gauge x 5/32 ndle Use one needle for each dose. 4/day. hydroCHLOROthiazide (HYDRODIURIL, ESIDRIX) 50 mg tablet Take 1 tablet by mouth once daily. blood sugar diagnostic (TRUE METRIX GLUCOSE TEST STRIP) test strip Use as instructed 3-4 times daily. lancets (TRUEPLUS LANCETS) 33 gauge misc Use as directed 3- 4 times daily. pyridostigmine (MESTINON) 60 mg tablet Take 1 tablet by mouth three times daily. As needed based on activity. Dr. Land, [facility] cyclobenzaprine (FLEXERIL) 10 mg tablet Take 1 tablet by mouth three times daily as needed for Muscle Spasm. Dr. Swanson metoprolol tartrate, short acting, (LOPRESSOR) 50 mg tablet Take 1 tablet by mouth twice daily. budesonide-formoterol (SYMBICORT) 160-4.5 mcg/actuation inhaler Inhale 2 Puffs as instructed twice daily. albuterol HFA (VENTOLIN HFA) 90 mcg/actuation inhaler Inhale 2 Puffs as instructed every 4 hours as needed. ondansetron orally disintegrating (ZOFRAN ODT) 8 mg disintegrating tablet Take 8 mg by mouth as needed. trimethobenzamide (TIGAN) 300 mg capsule Take 1 capsule by mouth three times daily. (Patient not taking: Reported on 12/18/2017 ) Omeprazole 40 mg capsule Take 1 capsule by mouth twice daily before meals (0600/1600). sucralfate (CARAFATE) 1 gram tablet Take 1 g by mouth four times daily. MULTIVITAMIN ORAL Take by mouth. No current facility-administered medications for this visit. Medications and allergies reviewed by this provider. SOCIAL HISTORY Social History Marital status: Single Spouse name: Years of education: Number of children: 2 Social History Main Topics Smoking status: Current Every Day Smoker Packs/day: 1.00 Years: 26.00 Types: Cigarettes Smokeless tobacco: Never Used Comment: down from 2 packs per day Alcohol use: Yes Comment: rarely Drug use: Yes Frequency: 3.0 times per week Types: Marijuana Comment: now down to once a week Sexual activity: Not Currently REVIEW OF SYSTEMS All other reviewed and negative other than HPI. OBJECTIVE: BP 132/82 (BP Site: Left Arm, BP Position: Sitting, BP Cuff Size: Small Adult) Pulse 88 Temp 36.6 ?C (97.9 ?F) (Left Tympanic) Resp 18 Wt 56.7 kg (125 lb) BMI 20.64 kg/m? . Vital signs reviewed by this provider. APPEARANCE Well appearing, alert, in no acute distress, well-hydrated, well nourished. ASSESSMENT/PLAN: 1. 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) - ICD9: 250.41, 583.81, ICD10: E10.21 (primary diagnosis) - patient was unaware that he was to increase his Lantus to 34 units at night- he just increased from 14 units to 18 units- we discussed the he should talk with endocrinology with concerns with this amount - lengthy discussion on carb counting. - patient has a good understanding of carb counting - I gave him handouts with sample diets and snack choices along with information on label reading - he is going to use his boost as snacks in between meals. He is rather thin so we discussed him aiming for about 60 carbs a meal in - he also plans on increasing his activity level ad we discussed it may be necessary to adjust higher depending on blood sugars response - he is to follow with endocrinology as scheduled and see Dr. Graham at end of January as scheduled- he may return sooner if needed 2. Need for vaccination - ICD9: V05.9, ICD10: Z23 - INFLUENZA VACCINE QUADRIVALENT AGE 3 YRS PLUS + IM Bere Valle, LAURA.ALFREDO Prescription instructions reviewed with patient as applicable. Patient advised if symptoms do not improve or if symptoms worsen sooner, to contact their primary care physician. Potential red flag symptoms discussed with the patient. Reviewed appropriate action plan to take if red flag symptoms occur. Patient agreeable to treatment plan. During this patient visit I have spent approximately 30 minutes in counseling regarding diabetic teacing. CNOV Observed: 12/21/2017 Status: COMPLETED Source: [place] 11:00 AM [facility] REPOSITORY [facility] AMARILYS KAIESR JR. ([id number]) 1975 M Date Time Provider Department 12/21/17 11:00 AM BERE VALLE (ALFREDO[facility] During your visit today, we recorded the following information about you: Temperature Pulse Respiration Blood pressure 97.9 degrees 88/minute 18/minute 132/82 Weight 56.7 kg Bere Valle APRN.CNP 12/21/2017 1:13 PM Signed 12/21/2017 Patient presents with: Diabetic Teaching: Carb counting and meal planning SUBJECTIVE: This is a 42 year old that is here today for Above Complaints. Patient saw Dr. Fam on 12/18/2017 for Type 1 DM. Patient reports he was told to see PCP for teaching on carb counting and meal planning. Office note from Dr. Fam reads: At this point I will initiate the following changes to his diabetes regimen: go up on Lantus to 34 units at HS, ICR to 1:8, and ISF to 1:40. Patient reports he has not been following carb counting. He does report he understands how to do this but would like to review with me today. He is drinking Boost for diabetics 3 times a day which has 23 carbs in it. He reports he needs to eat 6 smaller meals a day because he has gastroparesis. PAST MEDICAL HISTORY Diagnosis Date - Anxiety and depression - Asthma - Diabetic neuropathy ([facility]) Seeing Dr. Land - Edentulous - Emphysema lung ([facility]) early stages - Fatty liver - Gastroparesis - GERD (gastroesophageal reflux disease) - Hyperlipidemia - Hypertension - IBS (irritable bowel syndrome) previously seeing GI - Myasthenia gravis ([facility]) Seeing Dr. Land-neurology - Pulmonary nodules - Shingles - Tobacco use - Type I diabetes mellitus ([facility]) Seeing Dr. Fam ALLERGIES Levaquin [Levofloxacin]; Lisinopril; Losartan; Nicoderm; Reglan [Metoclopramide Hcl] MEDICATIONS Current Outpatient Prescriptions: mupirocin (BACTROBAN) 2 % ointment sertraline (ZOLOFT) 100 mg tablet Take 1 tablet by mouth once daily. Compression Knee Highs KNEE HIGH COMPRESSION STOCKINGS 20- 30 MM. DX: EDEMA losartan (COZAAR) 50 mg tablet Take 1 tablet by mouth once daily. insulin detemir U-100 (LEVEMIR FLEXTOUCH U-100 INSULN) 100 unit/mL (3 mL) inpn injection Inject subcutaneous 30 units daily. (Patient taking differently: Inject 14 Units subcutaneously daily at bedtime. Inject subcutaneous 30 units daily. ) furosemide (LASIX) 20 mg tablet TAKE ONE TABLET BY MOUTH ONCE DAILY insulin aspart U-100 (NOVOLOG FLEXPEN U-100 INSULIN) 100 unit/mL inpn Take 1 unit per 10 grams of carbs +SSI. 150-200: 1unit, 201-250: 2units, 251-300: 3units, 301-350: 4units, 351-400:5units, TDD 30units. promethazine (PHENERGAN) 25 mg tablet Take 1 tablet by mouth every 6 hours as needed for Nausea/Vomiting. montelukast (SINGULAIR) 10 mg tablet TAKE 1 TABLET AT BEDTIME gabapentin (NEURONTIN) 300 mg capsule Take one capsule by mouth three times daily, as directed. DX: E11.40 Insulin [place], Disposable, (BD ULTRA-FINE DAYA PEN NEEDLES) 32 gauge x 5/32 ndle Use one needle for each dose. 4/day. hydroCHLOROthiazide (HYDRODIURIL, ESIDRIX) 50 mg tablet Take 1 tablet by mouth once daily. blood sugar diagnostic (TRUE METRIX GLUCOSE TEST STRIP) test strip Use as instructed 3-4 times daily. lancets (TRUEPLUS LANCETS) 33 gauge misc Use as directed 3- 4 times daily. pyridostigmine (MESTINON) 60 mg tablet Take 1 tablet by mouth three times daily. As needed based on activity. Dr. Land, [facility] cyclobenzaprine (FLEXERIL) 10 mg tablet Take 1 tablet by mouth three times daily as needed for Muscle Spasm. Dr. Swanson metoprolol tartrate, short acting, (LOPRESSOR) 50 mg tablet Take 1 tablet by mouth twice daily. budesonide-formoterol (SYMBICORT) 160-4.5 mcg/actuation inhaler Inhale 2 Puffs as instructed twice daily. albuterol HFA (VENTOLIN HFA) 90 mcg/actuation inhaler Inhale 2 Puffs as instructed every 4 hours as needed. ondansetron orally disintegrating (ZOFRAN ODT) 8 mg disintegrating tablet Take 8 mg by mouth as needed. trimethobenzamide (TIGAN) 300 mg capsule Take 1 capsule by mouth three times daily. (Patient not taking: Reported on 12/18/2017 ) Omeprazole 40 mg capsule Take 1 capsule by mouth twice daily before meals (0600/1600). sucralfate (CARAFATE) 1 gram tablet Take 1 g by mouth four times daily. MULTIVITAMIN ORAL Take by mouth. No current facility-administered medications for this visit. Medications and allergies reviewed by this provider. SOCIAL HISTORY Social History Marital status: Single Spouse name: Years of education: Number of children: 2 Social History Main Topics Smoking status: Current Every Day Smoker Packs/day: 1.00 Years: 26.00 Types: Cigarettes Smokeless tobacco: Never Used Comment: down from 2 packs per day Alcohol use: Yes Comment: rarely Drug use: Yes Frequency: 3.0 times per week Types: Marijuana Comment: now down to once a week Sexual activity: Not Currently REVIEW OF SYSTEMS All other reviewed and negative other than HPI. OBJECTIVE: BP 132/82 (BP Site: Left Arm, BP Position: Sitting, BP Cuff Size: Small Adult) Pulse 88 Temp 36.6 ?C (97.9 ?F) (Left Tympanic) Resp 18 Wt 56.7 kg (125 lb) BMI 20.64 kg/m? . Vital signs reviewed by this provider. APPEARANCE Well appearing, alert, in no acute distress, well- hydrated, well nourished. ASSESSMENT/PLAN: 1. 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) - ICD9: 250.41, 583.81, ICD10: E10.21 (primary diagnosis) - patient was unaware that he was to increase his Lantus to 34 units at night- he just increased from 14 units to 18 units- we discussed the he should talk with endocrinology with concerns with this amount - lengthy discussion on carb counting. - patient has a good understanding of carb counting - I gave him handouts with sample diets and snack choices along with information on label reading - he is going to use his boost as snacks in between meals. He is rather thin so we discussed him aiming for about 60 carbs a meal in - he also plans on increasing his activity level ad we discussed it may be necessary to adjust higher depending on blood sugars response - he is to follow with endocrinology as scheduled and see Dr. Graham at end of January as scheduled- he may return sooner if needed 2. 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 Patient advised if symptoms do not improve or if symptoms worsen sooner, to contact their primary care physician. Potential red flag symptoms discussed with the patient. Reviewed appropriate action plan to take if red flag symptoms occur. Patient agreeable to treatment plan. During this patient visit I have spent approximately 30 minutes in counseling regarding diabetic teacing. Lissette Parikh LPN 12/21/2017 1:13 PM Signed 42 year old male here for INACTIVATED INFLUENZA VACCINE. 3053-6518 Season Patient is identified by name and date of : Yes [] CONTRAINDICATIONS color enhanced section Age less than 6 months? No Allergy to eggs, chicken, chicken feathers, or chicken dander? No Allergy to thimerosal (a preservative) or formaldehyde, gelatin? No History of severe reaction to any vaccine component or a previous dose of influenza vaccination? No History of Guillain-Brookings Syndrome within 6 weeks after a previous influenza vaccine? No Patient is not moderately or severely ill? No Current temperature greater or equal to 100.4F? No History of Bone Marrow Transplant prior 6 months or solid organ transplant in the past 3 months ? No History of fainting after a prior injection or medical procedure? No- ? If patient has fainted in the past, the CDC recommends sitting or lying down for 15 minutes after the vaccination. [] VERIFICATION color enhanced section Was the answer Yes for any of the above contraindications? No contraindications present. Acceptable to proceed with vaccine. Patient/guardian agrees the above answers are true to the best of their knowledge? Yes Flu vaccine information sheet given? Yes See immunization activity in [facility] for details of immunizations adminstered today. Patient age: [age] year old For The 3002-3557 Flu Season 6-35 months old: Fluzone 0.25 ml - IM (Preservative Free) 3 years of age: Fluzone 0.5 ml - IM (Preservative Free) 3 years and older: Fluzone 0.5 ml- IM-(with Preservatives) 65+ years old: 2-49 years old Fluzone High-Dose 0.5 ml - IM (Preservative Free) FLUMIST- intranasal REMEMBER: If patient is less than 9 years of age and this is the first vaccine of Influenza to be received in any flu season, they should receive a second dose in one months time. Referring Provider: CASSIE GRAHAM) [[id number]] Allergies As of Date: 12/21/2017 Noted Allergy Reaction LEVAQUIN (LEVOFLOXACIN) 12/07/2017 14 - Other: See Comments Comments: Aching in joints LISINOPRIL 11/14/2017 14 - Other: See Comments Comments: Lip swelling, possible angioedema, face swelling LOSARTAN 12/07/2017 7 - Swelling Comments: Face swelling NICODERM 10/03/2016 2 - Rash REGLAN (METOCLOPRAMIDE HCL) 07/26/2016 4 - Hives Date Reviewed: 12/21/2017 Reviewed by: Lissette Parikh LPN - Fully Assessed Reason for Visit: Diabetic Teaching [250] Cmt: Carb counting and meal planning Imm/Inj [58] Cmt: Flu Vaccine Reason For Visit History Recorded Primary Visit Diagnosis: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) [E10.21] Other Visit Diagnosis:Need for vaccination [Z23] Order(s):INFLUENZA VACCINE QUADRIVALENT AGE 3 YRS PLUS + IM [[id number]] Order #: [id number] insulin aspart U-100 (NOVOLOG FLEXPEN U-100 INSULIN) 100 unit/mL inpnTake 1 unit per 8 grams of carbs +SSI. 150-200: 1unit, 201-250: 2units, 251-300: 3units, 301-350: 4units, 351-400:5units, TDD 30units.Disp: 30 mLRfl: 1 insulin detemir U-100 (LEVEMIR FLEXTOUCH U-100 INSULN) 100 unit/mL (3 mL) inpn injectionInject subcutaneous 34 units daily.Disp: 15 mLRfl: 0 Prescriptions as of 12/21/2017 Sig: INSULIN ASPART U-100 100 UNI* Take 1 unit per 8 grams of ca* INSULIN DETEMIR (U-100) 100 U* Inject subcutaneous 34 units * MUPIROCIN 2 % TOPICAL OINTMENT SERTRALINE 100 MG TABLET Take 1 tablet by mouth once d* COMPOUNDED PRESCRIPTION KNEE HIGH COMPRESSION STOCKIN* LOSARTAN 50 MG TABLET Take 1 tablet by mouth once d* FUROSEMIDE 20 MG TABLET TAKE ONE TABLET BY MOUTH ONCE* PROMETHAZINE 25 MG TABLET Take 1 tablet by mouth every * MONTELUKAST 10 MG TABLET TAKE 1 TABLET AT BEDTIME PEN NEEDLE, DIABETIC 32 GAUGE* Use one needle for each dose.* HYDROCHLOROTHIAZIDE 50 MG TAB* Take 1 tablet by mouth once d* BLOOD SUGAR DIAGNOSTIC STRIPS Use as instructed 3-4 times d* LANCETS 33 GAUGE Use as directed 3-4 times willy* PYRIDOSTIGMINE BROMIDE 60 MG * Take 1 tablet by mouth three * METOPROLOL TARTRATE 50 MG TAB* Take 1 tablet by mouth twice * BUDESONIDE-FORMOTEROL HFA 160* Inhale 2 Puffs as instructed * ALBUTEROL SULFATE HFA 90 MCG/* Inhale 2 Puffs as instructed * ONDANSETRON 8 MG DISINTEGRATI* Take 8 mg by mouth as needed. OMEPRAZOLE 40 MG CAPSULE,YONNY* Take 1 capsule by mouth twice* SUCRALFATE 1 GRAM TABLET Take 1 g by mouth four times * MULTIVITAMIN ORAL Take by mouth. GABAPENTIN 300 MG CAPSULE Take one capsule by mouth thr* CYCLOBENZAPRINE 10 MG TABLET Take 1 tablet by mouth three * TRIMETHOBENZAMIDE 300 MG CAPS* Take 1 capsule by mouth three* Patient not taking: Reported on 12/18/2017 Problem List As Of Date 12/21/2017 Noted Resolved Anxiety and depression [F41.9, F32.9] INVALID FOR* Hypertension [I10] Diabetic neuropathy ([facility]) [E11.40] More... Asthma [J45.909] GERD (gastroesophageal reflux disease) [K21.9] IBS (irritable bowel syndrome) [K58.9] More... Myasthenia gravis ([facility]) [G70.00] More... Tobacco use [Z72.0] Type I diabetes mellitus ([facility]) [E10.9] More... Hyperlipidemia [E78.5] Prescriptions ordered this encounter Disp Refills Start End INSULIN ASPART U-100 100 UNIT/ML PERES* 30 mL 1 12/21/2017 Class: Med Update Sig: Take 1 unit per 8 grams of carbs +SSI. 150-200: 1unit, 201-250: 2units, 251-300: 3units, 301-350: 4units, 351-400:5units, TDD 30units. INSULIN DETEMIR (U-100) 100 UNIT/ML * 15 mL 0 12/21/2017 Class: Med Update Sig: Inject subcutaneous 34 units daily. Medications Discontinued During This Encounter insulin aspart U-100 (NOVOLOG FLEXPE* 30 mL 1 08/03/2017 12/21/2017 Sig: Take 1 unit per 10 grams of carbs +SSI. 150-200: 1unit, 201-250: 2units, 251-300: 3units, 301-350: 4units, 351-400:5units, TDD 30units. Disc: Reason for discontinue is not on file. insulin detemir U-100 (LEVEMIR FLEXT* 15 mL 0 10/16/2017 12/21/2017 Sig: Inject subcutaneous 30 units daily. Patient taking differently: Inject 14 Units subcutaneously daily at bedtime. Inject subcutaneous 30 units daily. Disc: Reason for discontinue is not on file. Follow-up and Disposition History Recorded Encounter Status:Closed by BERE VALLE CNP on 12/21/17 PROGRESS Observed: 12/18/2017 Status: COMPLETED Source: [place] 3:28 PM [facility] [place] REPOSITORY [facility] ID: [id number] Author: Rayo Fam Service: (none) Author Type: Physician Type: Progress Notes Filed: 01/26/2018 5:52 PM Note Text: Last Visit: April 03, 2017 Reason for follow up: DM Type 1 HISTORY OF PRESENT ILLNESS; Mr. Kaiser is a 42 year old male presenting as a new patient to me regarding DM Type 1. He was initially diagnosed with diabetes in 1999. He does have a family history of diabetes mellitus in his Uncle and Aunts. The patient reports the following microvascular complications: retinopathy, nephropathy, peripheral neuropathy, autonomic neuropathy and gastroparesis. Amarilys has no know macrovascular complications of diabetes. He has been on insulin since 1999. December 18, 2017: His current diabetes regimen is Lantus 14 units at HS, Novolog ICR 1:10, puls sliding scale 1:50 above 150. Regarding symptoms of hyperglycemia, he is is experiencing polyuria, polydipsia and nocturia. Taking boost control as food supplements 3 times a day, he was not feeling well last week, and his blood sugar was in 400-500 range. Dietary History is as follows: doing carb count not following diet Exercise: none Amarilys is checking his blood glucose 2-3 times daily. He did not bring a logbook today for review: ? Fastin-350 mg/dL ? Prelunch: 150-263 mg/dL ? Predinner: 150-300 mg/dL ? 2 hr post dinner: 250-290 mg/dL Hypoglycemia frequency: during hosp admission Hypoglycemia awareness: Yes The patient comes into the office today with complaints of uncontrolled blood sugar and gastroparesis. 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 Land - Edentulous - Emphysema lung (HCC) early stages - Fatty liver - Gastroparesis - GERD (gastroesophageal reflux disease) - Hyperlipidemia - Hypertension - IBS (irritable bowel syndrome) previously seeing GI - Myasthenia gravis (HCC) Seeing Dr. Land-neurology - Pulmonary nodules - Shingles - Tobacco use - Type I diabetes mellitus (HCC) Seeing Dr. Fam PAST SURGICAL HISTORY Procedure Laterality Date - COLONOSCOPY 09/08/2015 poor prep - procedure aborted - EGD 01/04/2016 [facility] - PAST SURGICAL HISTORY OF Thymectomy - PAST SURGICAL HISTORY OF Cholecystectomy - PAST SURGICAL HISTORY OF teeth extraction-total FAMILY HISTORY Problem Relation Age of Onset - Cancer Father lung - other (Other) Daughter Depression/Psych - Thyroid Maternal Grandmother - Cancer Paternal Grandmother lung - Cancer Paternal Grandfather throat, brain - Hypertension Mother - other (thyroid issues) Mother Social History Marital status: Single Spouse name: Years of education: Number of children: 2 Social History Main Topics Smoking status: Current Every Day Smoker Packs/day: 1.00 Years: 26.00 Types: Cigarettes Smokeless tobacco: Never Used Comment: down from 2 packs per day Alcohol use: Yes Comment: rarely Drug use: Yes Frequency: 3.0 times per week Types: Marijuana Comment: now down to once a week Sexual activity: Not Currently Current Outpatient Prescriptions: mupirocin (BACTROBAN) 2 % ointment Disp: Rfl: sertraline (ZOLOFT) 100 mg tablet Take 1 tablet by mouth once daily. Disp: 90 tablet Rfl: 1 Compression Knee Highs KNEE HIGH COMPRESSION STOCKINGS 20- 30 MM. DX: EDEMA Disp: 1 Device Rfl: 1 insulin detemir U-100 (LEVEMIR FLEXTOUCH U-100 INSULN) 100 unit/mL (3 mL) inpn injection Inject subcutaneous 30 units daily. (Patient taking differently: Inject 14 Units subcutaneously daily at bedtime. Inject subcutaneous 30 units daily. ) Disp: 15 mL Rfl: 0 furosemide (LASIX) 20 mg tablet TAKE ONE TABLET BY MOUTH ONCE DAILY Disp: 30 tablet Rfl: 2 insulin aspart U-100 (NOVOLOG FLEXPEN U-100 INSULIN) 100 unit/mL inpn Take 1 unit per 10 grams of carbs +SSI. 150-200: 1unit, 201-250: 2units, 251-300: 3units, 301-350: 4units, 351-400:5units, TDD 30units. Disp: 30 mL Rfl: 1 promethazine (PHENERGAN) 25 mg tablet Take 1 tablet by mouth every 6 hours as needed for Nausea/Vomiting. Disp: 60 tablet Rfl: 1 montelukast (SINGULAIR) 10 mg tablet TAKE 1 TABLET AT BEDTIME Disp: 90 tablet Rfl: 1 gabapentin (NEURONTIN) 300 mg capsule Take one capsule by mouth three times daily, as directed. DX: E11.40 Disp: 270 capsule Rfl: 0 Insulin [place], Disposable, (BD ULTRA-FINE DAYA PEN NEEDLES) 32 gauge x 5/32 ndle Use one needle for each dose. 4/day. Disp: 400 Each Rfl: 0 hydroCHLOROthiazide (HYDRODIURIL, ESIDRIX) 50 mg tablet Take 1 tablet by mouth once daily. Disp: 90 tablet Rfl: 0 blood sugar diagnostic (TRUE METRIX GLUCOSE TEST STRIP) test strip Use as instructed 3-4 times daily. Disp: 400 Strip Rfl: 1 lancets (TRUEPLUS LANCETS) 33 gauge misc Use as directed 3- 4 times daily. Disp: 400 Each Rfl: 1 pyridostigmine (MESTINON) 60 mg tablet Take 1 tablet by mouth three times daily. As needed based on activity. Dr. Land, [facility] Disp: Rfl: metoprolol tartrate, short acting, (LOPRESSOR) 50 mg tablet Take 1 tablet by mouth twice daily. Disp: 180 tablet Rfl: 1 budesonide-formoterol (SYMBICORT) 160-4.5 mcg/actuation inhaler Inhale 2 Puffs as instructed twice daily. Disp: 3 Inhaler Rfl: 1 albuterol HFA (VENTOLIN HFA) 90 mcg/actuation inhaler Inhale 2 Puffs as instructed every 4 hours as needed. Disp: 3 Inhaler Rfl: 1 ondansetron orally disintegrating (ZOFRAN ODT) 8 mg disintegrating tablet Take 8 mg by mouth as needed. Disp: Rfl: Omeprazole 40 mg capsule Take 1 capsule by mouth twice daily before meals (0600/1600). Disp: 60 capsule Rfl: 5 sucralfate (CARAFATE) 1 gram tablet Take 1 g by mouth four times daily. Disp: Rfl: MULTIVITAMIN ORAL Take by mouth. Disp: Rfl: losartan (COZAAR) 50 mg tablet Take 1 tablet by mouth once daily. Disp: 30 tablet Rfl: 1 cyclobenzaprine (FLEXERIL) 10 mg tablet Take 1 tablet by mouth three times daily as needed for Muscle Spasm. Dr. Swanson Disp: Rfl: trimethobenzamide (TIGAN) 300 mg capsule Take 1 capsule by mouth three times daily. (Patient not taking: Reported on 12/18/2017 ) Disp: 30 capsule Rfl: 6 No current facility-administered medications for this visit. Allergies As of Date: 12/18/2017 Allergen Noted Reaction LEVAQUIN [LEVOFLOXACIN] 12/07/2017 Other: See Comments LISINOPRIL 11/14/2017 Other: See Comments LOSARTAN 12/07/2017 Swelling NICODERM 10/03/2016 Rash REGLAN [METOCLOPRAMIDE HCL] 07/26/2016 Hives Fully Assessed 12/18/2017 REVIEW OF SYSTEMS: December 18, 2017 General: no fever, no chills and stable weight in the last 6 months Skin: no rashes, pruritis or dry skin Eyes: blurred vision - left eye Cardiac: denies chest pain, heart palpitations or orthopnea Pulmonary: productive cough from smoking also has h/o asthma GI: nausea, vomiting and diarrhea - from gastroparesis Neuro: denies seizures, numbness/tingling in hands and numbness/tingling in feet Musc: denies history of upper or lower extremity weakness Endocrine: complains of polyuria, polydipsia, nocturia, blurred vision and excessive fatigue Hematology: Negative for anemia, easy bleeding and bruising. All other systems: non-contributory PHYSICAL EXAM: BP 145/102 (BP Site: Left Arm, BP Position: Sitting, BP Cuff Size: Regular Adult) Pulse 110 Ht 165.7 cm (5' 5.25) Wt 55.8 kg (123 lb) SpO2 100% BMI 20.31 kg/m2 December 18, 2017 General: Well appearing, alert, in no acute distress, well-hydrated, well nourished., Thin Skin: skin color, texture, turgor normal, no rashes or lesions. Head: normocephalic, no masses, lesions, tenderness or abnormalities. Eyes: Anicteric sclera. Pupils are equally round and reactive to light. Extraocular movements are intact. Oropharynx: Lips, mucosa, and tongue normal, teeth and gums normal, oropharynx normal Neck: Supple, no adenopathy; thyroid symmetric, normal size, no bruits Heart: RRR without murmur, gallop, or rubs. No ectopy Abdomen: soft, non-tender, positive bowel sounds Extremities: no edema, no calluses or ulcers present. and sensation intact based on 128hz tuning fork examination. Peripheral Pulses: posterior tibial and doralis pedis pulses 2+ and symmetrical DATA: Creatinine Date Value Ref Range Status 12/07/2017 1.11 0.73 - 1.22 mg/dL Final Hemoglobin A1C (%) Date Value 11/07/2017 11.3 ) No components found for: URINEALBUMIN Cholesterol, Total (mg/dL) Date Value 04/25/2017 330 HDL Cholesterol (mg/dL) Date Value 04/25/2017 72 LDL Cholesterol (mg/dL) Date Value 04/25/2017 203 Triglyceride (mg/dL) Date Value 04/25/2017 276 IMPRESSION: Mr. Kaiser is a 42 year old male here for evaluation of DM Type 1 complicated by hypertension, hyperlipidemia, peripheral neuropathy, autonomic neuropathy and gastroparesis. RECOMMENDATIONS: 1. Glycemic control: Component Latest Ref Rng AND Units 11/07/2017 Hemoglobin A1C 4.3 - 5.6 % 11.3 (H) Estimated Average Glucose mg/dL 278 This patient is not at target due to non-complaince. He didn't change his insulin dose after last visit even after discussion as he was afraid of hypoglycemia. At this point I will initiate the following changes to his diabetes regimen: go up on Lantus to 20 units at HS, ICR to 1:8, and ISF to 1:40. Also encouraged to watch diet and exercise as tolerated. The patient was reminded to check his blood glucose 4 times a day and to record the data in a logbook. He was advised to bring their logbook to each office visit. I recommended at least 150 minutes per week of moderate physical activity, such as walking and to reduce carbohydrates and overall caloric intake. 2. Hypertension/BP control: This patient is not at target on current regimen. I will defer management of this to their primary care physician. 3. Lipids: This patient is close to target LDL but not on statin regimen. Diet, exercise and food supplement discussed. 4. Antiplatelet therapy: This patient is not on antiplatelet therapy. 5. Nephropathy screening: This patient has microalbuminuria and is on BILL-I or ARB therapy. 6. Ophthalmology: This patient is up to date with their annual eye exam and has a history of retinopathy. 7. Immunization: Annual influenza was recommended. Pneumococcal vaccine was recommended. 8. Smoking: Comment: adverse effects of smoking discussed. Plan: counseled for smoking cessation. (spent 3-5 mins) 9. Neuropathy: pathophysiology AND treatment options discussed. Better blood sugar control, less fluctuations of blood sugar, foot care- including self foot exam on a regular basis (teaching given), Vit B12 OTC supplement, consider lipoic acid in future 10. Onychomycosis: refer to podiatry. The patient was asked to follow up with us in 3 months. I advised the patient to call in with their blood glucose readings to the office in 2 weeks. I spent 25 minutes in this visit, with more than 50% of the time devoted to patient counseling. Discussed: pathophysiology of type-1 diabetes, importance of diet and exercise, over weight and blood glucose control, medications for type-1 diabetes applicable to him, ADA recommendations, simple and complex carbs, glycemic index, how Lantus, Humalog works, etc Rayo Fam MD December 18, 2017 CNOV Observed: 12/18/2017 Status: COMPLETED Source: [place] 2:25 PM [facility] REPOSITORY Office Visit (ENDMED) AMARILYS KAISER JR. ([id number]) 1975 M Date Time Provider Department 12/18/17 2:25 PM RAYO FAM During your visit today, we recorded the following information about you: Pulse Blood pressure Weight Height 110/minute 145/102 55.8 kg 1.657 m Rayo Fam MD 01/26/2018 5:52 PM Signed Last Visit: April 03, 2017 Reason for follow up: DM Type 1 HISTORY OF PRESENT ILLNESS; Mr. Kaiser is a 42 year old male presenting as a new patient to me regarding DM Type 1. He was initially diagnosed with diabetes in 1999. He does have a family history of diabetes mellitus in his Uncle and Aunts. The patient reports the following microvascular complications: retinopathy, nephropathy, peripheral neuropathy, autonomic neuropathy and gastroparesis. Amarilys has no know macrovascular complications of diabetes. He has been on insulin since 1999. December 18, 2017: His current diabetes regimen is Lantus 14 units at HS, Novolog ICR 1:10, puls sliding scale 1:50 above 150. Regarding symptoms of hyperglycemia, he is is experiencing polyuria, polydipsia and nocturia. Taking boost control as food supplements 3 times a day, he was not feeling well last week, and his blood sugar was in 400-500 range. Dietary History is as follows: doing carb count not following diet Exercise: none Amarilys is checking his blood glucose 2-3 times daily. He did not bring a logbook today for review: ? Fastin-350 mg/dL ? Prelunch: 150-263 mg/dL ? Predinner: 150-300 mg/dL ? 2 hr post dinner: 250-290 mg/dL Hypoglycemia frequency: during hosp admission Hypoglycemia awareness: Yes The patient comes into the office today with complaints of uncontrolled blood sugar and gastroparesis. 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 Land - Edentulous - Emphysema lung (HCC) early stages - Fatty liver - Gastroparesis - GERD (gastroesophageal reflux disease) - Hyperlipidemia - Hypertension - IBS (irritable bowel syndrome) previously seeing GI - Myasthenia gravis (HCC) Seeing Dr. Land-neurology - Pulmonary nodules - Shingles - Tobacco use - Type I diabetes mellitus (HCC) Seeing Dr. Fam PAST SURGICAL HISTORY Procedure Laterality Date - COLONOSCOPY 09/08/2015 poor prep - procedure aborted - EGD 01/04/2016 [facility] - PAST SURGICAL HISTORY OF Thymectomy - PAST SURGICAL HISTORY OF Cholecystectomy - PAST SURGICAL HISTORY OF teeth extraction-total FAMILY HISTORY Problem Relation Age of Onset - Cancer Father lung - other (Other) Daughter Depression/Psych - Thyroid Maternal Grandmother - Cancer Paternal Grandmother lung - Cancer Paternal Grandfather throat, brain - Hypertension Mother - other (thyroid issues) Mother Social History Marital status: Single Spouse name: Years of education: Number of children: 2 Social History Main Topics Smoking status: Current Every Day Smoker Packs/day: 1.00 Years: 26.00 Types: Cigarettes Smokeless tobacco: Never Used Comment: down from 2 packs per day Alcohol use: Yes Comment: rarely Drug use: Yes Frequency: 3.0 times per week Types: Marijuana Comment: now down to once a week Sexual activity: Not Currently Current Outpatient Prescriptions: mupirocin (BACTROBAN) 2 % ointment Disp: Rfl: sertraline (ZOLOFT) 100 mg tablet Take 1 tablet by mouth once daily. Disp: 90 tablet Rfl: 1 Compression Knee Highs KNEE HIGH COMPRESSION STOCKINGS 20- 30 MM. DX: EDEMA Disp: 1 Device Rfl: 1 insulin detemir U-100 (LEVEMIR FLEXTOUCH U-100 INSULN) 100 unit/mL (3 mL) inpn injection Inject subcutaneous 30 units daily. (Patient taking differently: Inject 14 Units subcutaneously daily at bedtime. Inject subcutaneous 30 units daily. ) Disp: 15 mL Rfl: 0 furosemide (LASIX) 20 mg tablet TAKE ONE TABLET BY MOUTH ONCE DAILY Disp: 30 tablet Rfl: 2 insulin aspart U-100 (NOVOLOG FLEXPEN U-100 INSULIN) 100 unit/mL inpn Take 1 unit per 10 grams of carbs +SSI. 150-200: 1unit, 201-250: 2units, 251-300: 3units, 301-350: 4units, 351-400:5units, TDD 30units. Disp: 30 mL Rfl: 1 promethazine (PHENERGAN) 25 mg tablet Take 1 tablet by mouth every 6 hours as needed for Nausea/Vomiting. Disp: 60 tablet Rfl: 1 montelukast (SINGULAIR) 10 mg tablet TAKE 1 TABLET AT BEDTIME Disp: 90 tablet Rfl: 1 gabapentin (NEURONTIN) 300 mg capsule Take one capsule by mouth three times daily, as directed. DX: E11.40 Disp: 270 capsule Rfl: 0 Insulin [place], Disposable, (BD ULTRA-FINE DAYA PEN NEEDLES) 32 gauge x 5/32 ndle Use one needle for each dose. 4/day. Disp: 400 Each Rfl: 0 hydroCHLOROthiazide (HYDRODIURIL, ESIDRIX) 50 mg tablet Take 1 tablet by mouth once daily. Disp: 90 tablet Rfl: 0 blood sugar diagnostic (TRUE METRIX GLUCOSE TEST STRIP) test strip Use as instructed 3-4 times daily. Disp: 400 Strip Rfl: 1 lancets (TRUEPLUS LANCETS) 33 gauge misc Use as directed 3- 4 times daily. Disp: 400 Each Rfl: 1 pyridostigmine (MESTINON) 60 mg tablet Take 1 tablet by mouth three times daily. As needed based on activity. Dr. Land, [facility] Disp: Rfl: metoprolol tartrate, short acting, (LOPRESSOR) 50 mg tablet Take 1 tablet by mouth twice daily. Disp: 180 tablet Rfl: 1 budesonide-formoterol (SYMBICORT) 160-4.5 mcg/actuation inhaler Inhale 2 Puffs as instructed twice daily. Disp: 3 Inhaler Rfl: 1 albuterol HFA (VENTOLIN HFA) 90 mcg/actuation inhaler Inhale 2 Puffs as instructed every 4 hours as needed. Disp: 3 Inhaler Rfl: 1 ondansetron orally disintegrating (ZOFRAN ODT) 8 mg disintegrating tablet Take 8 mg by mouth as needed. Disp: Rfl: Omeprazole 40 mg capsule Take 1 capsule by mouth twice daily before meals (0600/1600). Disp: 60 capsule Rfl: 5 sucralfate (CARAFATE) 1 gram tablet Take 1 g by mouth four times daily. Disp: Rfl: MULTIVITAMIN ORAL Take by mouth. Disp: Rfl: losartan (COZAAR) 50 mg tablet Take 1 tablet by mouth once daily. Disp: 30 tablet Rfl: 1 cyclobenzaprine (FLEXERIL) 10 mg tablet Take 1 tablet by mouth three times daily as needed for Muscle Spasm. Dr. Swanson Disp: Rfl: trimethobenzamide (TIGAN) 300 mg capsule Take 1 capsule by mouth three times daily. (Patient not taking: Reported on 12/18/2017 ) Disp: 30 capsule Rfl: 6 No current facility-administered medications for this visit. Allergies As of Date: 12/18/2017 Allergen Noted Reaction LEVAQUIN [LEVOFLOXACIN] 12/07/2017 Other: See Comments LISINOPRIL 11/14/2017 Other: See Comments LOSARTAN 12/07/2017 Swelling NICODERM 10/03/2016 Rash REGLAN [METOCLOPRAMIDE HCL] 07/26/2016 Hives Fully Assessed 12/18/2017 REVIEW OF SYSTEMS: December 18, 2017 General: no fever, no chills and stable weight in the last 6 months Skin: no rashes, pruritis or dry skin Eyes: blurred vision - left eye Cardiac: denies chest pain, heart palpitations or orthopnea Pulmonary: productive cough from smoking also has h/o asthma GI: nausea, vomiting and diarrhea - from gastroparesis Neuro: denies seizures, numbness/tingling in hands and numbness/tingling in feet Musc: denies history of upper or lower extremity weakness Endocrine: complains of polyuria, polydipsia, nocturia, blurred vision and excessive fatigue Hematology: Negative for anemia, easy bleeding and bruising. All other systems: non-contributory PHYSICAL EXAM: BP 145/102 (BP Site: Left Arm, BP Position: Sitting, BP Cuff Size: Regular Adult) Pulse 110 Ht 165.7 cm (5' 5.25) Wt 55.8 kg (123 lb) SpO2 100% BMI 20.31 kg/m2 December 18, 2017 General: Well appearing, alert, in no acute distress, well- hydrated, well nourished., Thin Skin: skin color, texture, turgor normal, no rashes or lesions. Head: normocephalic, no masses, lesions, tenderness or abnormalities. Eyes: Anicteric sclera. Pupils are equally round and reactive to light. Extraocular movements are intact. Oropharynx: Lips, mucosa, and tongue normal, teeth and gums normal, oropharynx normal Neck: Supple, no adenopathy; thyroid symmetric, normal size, no bruits Heart: RRR without murmur, gallop, or rubs. No ectopy Abdomen: soft, non-tender, positive bowel sounds Extremities: no edema, no calluses or ulcers present. and sensation intact based on 128hz tuning fork examination. Peripheral Pulses: posterior tibial and doralis pedis pulses 2+ and symmetrical DATA: Creatinine Date Value Ref Range Status 12/07/2017 1.11 0.73 - 1.22 mg/dL Final Hemoglobin A1C (%) Date Value 11/07/2017 11.3 ) No components found for: URINEALBUMIN Cholesterol, Total (mg/dL) Date Value 04/25/2017 330 HDL Cholesterol (mg/dL) Date Value 04/25/2017 72 LDL Cholesterol (mg/dL) Date Value 04/25/2017 203 Triglyceride (mg/dL) Date Value 04/25/2017 276 IMPRESSION: Mr. Kaiser is a 42 year old male here for evaluation of DM Type 1 complicated by hypertension, hyperlipidemia, peripheral neuropathy, autonomic neuropathy and gastroparesis. RECOMMENDATIONS: 1. Glycemic control: Component Latest Ref Rng AND Units 11/07/2017 Hemoglobin A1C 4.3 - 5.6 % 11.3 (H) Estimated Average Glucose mg/dL 278 This patient is not at target due to non-complaince. He didn't change his insulin dose after last visit even after discussion as he was afraid of hypoglycemia. At this point I will initiate the following changes to his diabetes regimen: go up on Lantus to 20 units at HS, ICR to 1:8, and ISF to 1:40. Also encouraged to watch diet and exercise as tolerated. The patient was reminded to check his blood glucose 4 times a day and to record the data in a logbook. He was advised to bring their logbook to each office visit. I recommended at least 150 minutes per week of moderate physical activity, such as walking and to reduce carbohydrates and overall caloric intake. 2. Hypertension/BP control: This patient is not at target on current regimen. I will defer management of this to their primary care physician. 3. Lipids: This patient is close to target LDL but not on statin regimen. Diet, exercise and food supplement discussed. 4. Antiplatelet therapy: This patient is not on antiplatelet therapy. 5. Nephropathy screening: This patient has microalbuminuria and is on BILL-I or ARB therapy. 6. Ophthalmology: This patient is up to date with their annual eye exam and has a history of retinopathy. 7. Immunization: Annual influenza was recommended. Pneumococcal vaccine was recommended. 8. Smoking: Comment: adverse effects of smoking discussed. Plan: counseled for smoking cessation. (spent 3-5 mins) 9. Neuropathy: pathophysiology AND treatment options discussed. Better blood sugar control, less fluctuations of blood sugar, foot care- including self foot exam on a regular basis (teaching given), Vit B12 OTC supplement, consider lipoic acid in future 10. Onychomycosis: refer to podiatry. The patient was asked to follow up with us in 3 months. I advised the patient to call in with their blood glucose readings to the office in 2 weeks. I spent 25 minutes in this visit, with more than 50% of the time devoted to patient counseling. Discussed: pathophysiology of type-1 diabetes, importance of diet and exercise, over weight and blood glucose control, medications for type- 1 diabetes applicable to him, ADA recommendations, simple and complex carbs, glycemic index, how Lantus, Humalog works, etc Rayo Fam MD December 18, 2017 Referring Provider: SELF [[id number]] Allergies As of Date: 12/18/2017 Noted Allergy Reaction LEVAQUIN (LEVOFLOXACIN) 12/07/2017 14 - Other: See Comments Comments: Aching in joints LISINOPRIL 11/14/2017 14 - Other: See Comments Comments: Lip swelling, possible angioedema, face swelling LOSARTAN 12/07/2017 7 - Swelling Comments: Face swelling NICODERM 10/03/2016 2 - Rash REGLAN (METOCLOPRAMIDE HCL) 07/26/2016 4 - Hives Date Reviewed: 12/18/2017 Reviewed by: Kaleb Westbrook Ma - Fully Assessed Reason for Visit: Diabetes [34] Primary Visit Diagnosis: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) [E10.21] Other Visit Diagnoses:Mixed hyperlipidemia [E78.2] Essential hypertension [I10] Neuropathy (HCC) [G62.9] Tobacco use [Z72.0] Onychomycosis [B35.1] Order(s):CONSULT TO PODIATRY [9034] Order #: [id number]: 1 DIABETES EDUCATION (CDE) (X20) [5255992] Order #: [id number]: 1 Prescriptions as of 12/18/2017 Sig: MUPIROCIN 2 % TOPICAL OINTMENT SERTRALINE 100 MG TABLET Take 1 tablet by mouth once d* COMPOUNDED PRESCRIPTION KNEE HIGH COMPRESSION STOCKIN* X INSULIN DETEMIR (U-100) 100 U* Inject subcutaneous 30 units * Patient taking differently: Inject 14 Units subcutaneousl* X FUROSEMIDE 20 MG TABLET TAKE ONE TABLET BY MOUTH ONCE* X INSULIN ASPART U-100 100 UNI* Take 1 unit per 10 grams of c* PROMETHAZINE 25 MG TABLET Take 1 tablet by mouth every * X MONTELUKAST 10 MG TABLET TAKE 1 TABLET AT BEDTIME X GABAPENTIN 300 MG CAPSULE Take one capsule by mouth thr* X PEN NEEDLE, DIABETIC 32 GAUGE* Use one needle for each dose.* X HYDROCHLOROTHIAZIDE 50 MG TAB* Take 1 tablet by mouth once d* X BLOOD SUGAR DIAGNOSTIC STRIPS Use as instructed 3-4 times d* X LANCETS 33 GAUGE Use as directed 3-4 times willy* PYRIDOSTIGMINE BROMIDE 60 MG * Take 1 tablet by mouth three * X METOPROLOL TARTRATE 50 MG TAB* Take 1 tablet by mouth twice * X BUDESONIDE-FORMOTEROL HFA 160* Inhale 2 Puffs as instructed * X ALBUTEROL SULFATE HFA 90 MCG/* Inhale 2 Puffs as instructed * ONDANSETRON 8 MG DISINTEGRATI* Take 8 mg by mouth as needed. X OMEPRAZOLE 40 MG CAPSULE,YONNY* Take 1 capsule by mouth twice* SUCRALFATE 1 GRAM TABLET Take 1 g by mouth four times * MULTIVITAMIN ORAL Take by mouth. X LOSARTAN 50 MG TABLET Take 1 tablet by mouth once d* Patient not taking: Reported on 12/22/2017 CYCLOBENZAPRINE 10 MG TABLET Take 1 tablet by mouth three * TRIMETHOBENZAMIDE 300 MG CAPS* Take 1 capsule by mouth three* Patient not taking: Reported on 12/18/2017 Medication notes this encounter GABAPENTIN 300 MG CAPSULE >> Kaleb Westbrook Ma 12/18/2017 2:46 PM >> KALEB WESTBROOK MA Dec 18, 2017 2:46 PM Problem List As Of Date 12/18/2017 Noted Resolved Anxiety and depression [F41.9, F32.9] INVALID FOR* Hypertension [I10] Diabetic neuropathy (HCC) [E11.40] More... Asthma [J45.909] GERD (gastroesophageal reflux disease) [K21.9] IBS (irritable bowel syndrome) [K58.9] More... Myasthenia gravis (HCC) [G70.00] More... Tobacco use [Z72.0] Type I diabetes mellitus (HCC) [E10.9] More... Hyperlipidemia [E78.5] Disposition: Return in about 3 months (around 03/19/2018). Follow-up and Disposition History Recorded Encounter Status:Closed by RAYO FAM MD on 01/26/18 COMP METABOLIC PANEL Collected: 12/07/2017 Status: F Source: [place] 1:47 PM [facility] [place] REPOSITORY TYPE CODE TESTS RESULT OUT OF REFERENCE UNITS RANGE LAB TP 6.3-8.0 g/dL Low Protein, Total 5.8 LAB ALB 3.9-4.9 g/dL Low Albumin 2.5 LAB CA 8.5-10.2 mg/dL Calcium, Total 8.5 LAB TBIL 0.2-1.3 mg/dL Low Bilirubin, Total <0.2 LAB ALKP 36-108 U/L Alkaline High Phosphatase 351 LAB AST 14-40 U/L AST High 98 LAB GLU 74-99 mg/dL Glucose High 312 Result Comment: The [place] [employer] (ADA) provides guidance for cutoff values for fasting glucose and random glucose. The ADA defines fasting as no caloric intake for at least 8 hours. Fas ting plasma glucose results between 100 to 125 mg/dL indicate increased risk for diabetes (prediabetes). Fasting plasma glucose results greater than or equal to 126 mg/dL meet the criteria for diagnosis of diabetes. In the absence of unequivocal hyperglycemia, results should be confirmed by repeat testing. In a patient with classic symptoms of hyperglycemia or hyperglycemic crisis, random plasma glucose results greater than or equal to 200 mg/dL meet the criteria for diagnosis of diabetes. Reference: Standards of Medical Care in Diabetes 2016, [place] [employer]. Diabetes Care. 2016.39(Suppl 1). LAB BUN 9-24 mg/dL BUN 17 LAB CRET 0.73-1.22 mg/dL Creatinine 1.11 LAB NA 136-144 mmol/L Low Sodium 132 LAB K 3.7-5.1 mmol/L Potassium 3.7 LAB CL 97-105 mmol/L Low Chloride 95 LAB CO2 22-30 mmol/L CO2 25 LAB AGAP 9-18 mmol/L Anion Gap 12 LAB ALT 10-54 U/L ALT High 81 LAB GFRAA eGFR- Amer. >60 LAB GFRNAA . eGFR-All Other Races >60 Result Comment: eGFR (Estimated GFR) Units of measure: mL/min/1.73 meters squared eGFR is derived from the reexpressed MDRD Study equation using the following parameters: serum creatinine, age, gender and race. The creatinine assay has been calibrated to be traceable to IDMS. An eGFR <60 mL/min/1.73m2 for >3 months is consistent with chronic kidney disease. Refer to KDOQI guidelines for clinical interpretation. In patients with unstable renal function, e.g. those with acute kidney injury, the eGFR may not accurately reflect actual GFR. Performed By: #### CMP, NTBNP #### [facility] [employer] [address] [place], [place] [id number] NT PRO BNP Collected: 12/07/2017 Status: F Source: [place] 1:47 PM [facility] REPOSITORY TYPE CODE TESTS RESULT OUT OF REFERENCE UNITS RANGE LAB PBNP <125 pg/mL High PRO B Natr 2137 Peptide Performed By: #### CMP, NTBNP #### [facility] [employer] [address] [place], [place] [id number] PROGRESS Observed: 12/07/2017 Status: COMPLETED Source: [place] 1:12 PM [facility] REPOSITORY HNO ID: [id number] Author: Bere Montgomery) Podlogar Service: (none) Author Type: Nurse Practitioner Type: Progress Notes Filed: 12/07/2017 3:30 PM Note Text: 12/07/2017 Patient presents with: Recheck: check edema and b/p SUBJECTIVE: This is a 42 year old that is here today for Above Complaints. Saw Dr. Graham last week for hospital follow-up. Returns today for follow-up on scrotal and edema and cellulitis of skin. Did not get recommend labs from last visit. 1. Cellulitis: Right lower whitt. Healing good. Finished antibiotic on the . Reports improving redness and tenderness. Had a small amount of clear drainage after shower one night. Denies fevers, vomiting,m or diarrhea. 2. Edema: Has been taking HCTZ and lasix as prescribed. Improved edema to scrotum and penis. Urinating without difficulty. Denies SOB, dyspnea, wheezing, coughing, chest pain or palpitations. Has not been wearing compression hose. Seeing nephrology on January 03. PAST MEDICAL HISTORY Diagnosis Date - Anxiety and depression - Asthma - Diabetic neuropathy (HCC) Seeing Dr. Land - Edentulous - Emphysema lung ([facility]) early stages - Fatty liver - Gastroparesis - GERD (gastroesophageal reflux disease) - Hyperlipidemia - Hypertension - IBS (irritable bowel syndrome) previously seeing GI - Myasthenia gravis ([facility]) Seeing Dr. Land-neurology - Shingles - Tobacco use - Type I diabetes mellitus ([facility]) Seeing Dr. Fam ALLERGIES Lisinopril; Nicoderm; Reglan [Metoclopramide Hcl] MEDICATIONS Current Outpatient Prescriptions: mupirocin (BACTROBAN) 2 % ointment cefADROxil (DURICEF) 500 mg capsule 2 capsules twice daily for 7 days. nut.tx.glucose intolerance,soy (BOOST GLUCOSE CONTROL) Take 237 mL by mouth three times daily with meals. Chocolate and strawberry flavor. sertraline (ZOLOFT) 100 mg tablet Take 1 tablet by mouth once daily. Compression Knee Highs KNEE HIGH COMPRESSION STOCKINGS 20- 30 MM. DX: EDEMA losartan (COZAAR) 50 mg tablet Take 1 tablet by mouth once daily. insulin detemir U-100 (LEVEMIR FLEXTOUCH U-100 INSULN) 100 unit/mL (3 mL) inpn injection Inject subcutaneous 30 units daily. (Patient taking differently: Inject 14 Units subcutaneously daily at bedtime. Inject subcutaneous 30 units daily. ) furosemide (LASIX) 20 mg tablet TAKE ONE TABLET BY MOUTH ONCE DAILY insulin aspart U-100 (NOVOLOG FLEXPEN U-100 INSULIN) 100 unit/mL inpn Take 1 unit per 10 grams of carbs +SSI. 150-200: 1unit, 201-250: 2units, 251-300: 3units, 301-350: 4units, 351-400:5units, TDD 30units. promethazine (PHENERGAN) 25 mg tablet Take 1 tablet by mouth every 6 hours as needed for Nausea/Vomiting. montelukast (SINGULAIR) 10 mg tablet TAKE 1 TABLET AT BEDTIME gabapentin (NEURONTIN) 300 mg capsule Take one capsule by mouth three times daily, as directed. DX: E11.40 Insulin [place], Disposable, (BD ULTRA-FINE DAYA PEN NEEDLES) 32 gauge x 5/32 ndle Use one needle for each dose. 4/day. hydroCHLOROthiazide (HYDRODIURIL, ESIDRIX) 50 mg tablet Take 1 tablet by mouth once daily. blood sugar diagnostic (TRUE METRIX GLUCOSE TEST STRIP) test strip Use as instructed 3-4 times daily. lancets (TRUEPLUS LANCETS) 33 gauge misc Use as directed 3- 4 times daily. pyridostigmine (MESTINON) 60 mg tablet Take 1 tablet by mouth three times daily. As needed based on activity. Dr. Land, [facility] cyclobenzaprine (FLEXERIL) 10 mg tablet Take 1 tablet by mouth three times daily as needed for Muscle Spasm. Dr. Swanson metoprolol tartrate, short acting, (LOPRESSOR) 50 mg tablet Take 1 tablet by mouth twice daily. budesonide-formoterol (SYMBICORT) 160-4.5 mcg/actuation inhaler Inhale 2 Puffs as instructed twice daily. albuterol HFA (VENTOLIN HFA) 90 mcg/actuation inhaler Inhale 2 Puffs as instructed every 4 hours as needed. ondansetron orally disintegrating (ZOFRAN ODT) 8 mg disintegrating tablet Take 8 mg by mouth as needed. trimethobenzamide (TIGAN) 300 mg capsule Take 1 capsule by mouth three times daily. Omeprazole 40 mg capsule Take 1 capsule by mouth twice daily before meals (0600/1600). sucralfate (CARAFATE) 1 gram tablet Take 1 g by mouth four times daily. MULTIVITAMIN ORAL Take by mouth. No current facility-administered medications for this visit. Medications and allergies reviewed by this provider. SOCIAL HISTORY Social History Marital status: Single Spouse name: Years of education: Number of children: 2 Social History Main Topics Smoking status: Current Every Day Smoker Packs/day: 1.00 Years: 26.00 Types: Cigarettes Smokeless tobacco: Former User Comment: down from 2 packs per day Alcohol use: Yes Comment: rarely Drug use: Yes Frequency: 3.0 times per week Types: Marijuana Comment: now down to once a week Sexual activity: Not Currently REVIEW OF SYSTEMS All other reviewed and negative other than HPI. OBJECTIVE: BP 150/82 (BP Site: Left Arm, BP Position: Sitting, BP Cuff Size: Regular Adult) Pulse 64 Temp 37 ?C (98.6 ?F) Resp 16 Wt 62.6 kg (138 lb) BMI 22.88 kg/m? . Vital signs reviewed by this provider. APPEARANCE Well appearing, alert, in no acute distress, well-hydrated, well nourished. HEART RRR with normal S1 and S2, no murmurs, no gallops, no JVD appreciated LUNG clear to auscultation MALE Penis normal, no urethral discharge, scrotum normal to palpation. No scrotal edema. Small amount of penile swelling. EXTREMITIES 1-2+ BLE edema. No edema to upper legs SKIN: less than 2 cm round incision site without active drainage. Slightly pinkened around incision site. Much improvement from previous demarcation. No warmth to touch, mild TTP. ASSESSMENT/PLAN: 1. Scrotal edema - ICD9: 608.86, ICD10: N50.89 (primary diagnosis) - improved - continue lasix and HCTZ as ordered - minimize salt intake - encouraged to get blood work completed that was ordered last week - follow-up as scheduled with Dr. Graham in January, sooner if needed or if edema returns 2. Bilateral lower extremity edema - ICD9: 782.3, ICD10: R60.0 -improving - encouraged to wear compression hose and elevate legs above heart level when sitting - minimize salt intake - continue lasix and HCTZ intake - follow-up as scheduled with Dr. Graham in January, sooner if needed or increasing swelling 3. Cellulitis of skin - ICD9: 682.9, ICD10: L03.90 - resolving - follow-up for increased swelling, redness, warmth, tenderness, to ER with red streaking, verbalizes understanding Bere Valle APRN.PICKER / PACKER Prescription instructions reviewed with patient as applicable. Patient advised if symptoms do not improve or if symptoms worsen sooner, to contact their primary care physician. Potential red flag symptoms discussed with the patient. Reviewed appropriate action plan to take if red flag symptoms occur. Patient agreeable to treatment plan. JORGEOV Observed: 12/07/2017 Status: COMPLETED Source: [place] 1:00 PM [facility] REPOSITORY [facility] AMARILYS KAISER JR. ([id number]) 1975 M Date Time Provider Department 12/07/17 1:00 PM BERE VALLE) ALEX During your visit today, we recorded the following information about you: Temperature Pulse Respiration Blood pressure 98.6 degrees 64/minute 16/minute 150/82 Weight 62.6 kg Bere Annelogshiela, SUSANNA 12/07/2017 3:30 PM Signed 12/07/2017 Patient presents with: Recheck: check edema and b/p SUBJECTIVE: This is a 42 year old that is here today for Above Complaints. Saw Dr. Graham last week for hospital follow-up. Returns today for follow-up on scrotal and edema and cellulitis of skin. Did not get recommend labs from last visit. 1. Cellulitis: Right lower whitt. Healing good. Finished antibiotic on the . Reports improving redness and tenderness. Had a small amount of clear drainage after shower one night. Denies fevers, vomiting,m or diarrhea. 2. Edema: Has been taking HCTZ and lasix as prescribed. Improved edema to scrotum and penis. Urinating without difficulty. Denies SOB, dyspnea, wheezing, coughing, chest pain or palpitations. Has not been wearing compression hose. Seeing nephrology on January 03. PAST MEDICAL HISTORY Diagnosis Date - Anxiety and depression - Asthma - Diabetic neuropathy (HCC) Seeing Dr. Land - Edentulous - Emphysema lung (HCC) early stages - Fatty liver - Gastroparesis - GERD (gastroesophageal reflux disease) - Hyperlipidemia - Hypertension - IBS (irritable bowel syndrome) previously seeing GI - Myasthenia gravis ([facility]) Seeing Dr. Land-neurology - Shingles - Tobacco use - Type I diabetes mellitus ([facility]) Seeing Dr. Fam ALLERGIES Lisinopril; Nicoderm; Reglan [Metoclopramide Hcl] MEDICATIONS Current Outpatient Prescriptions: mupirocin (BACTROBAN) 2 % ointment cefADROxil (DURICEF) 500 mg capsule 2 capsules twice daily for 7 days. nut.tx.glucose intolerance,soy (BOOST GLUCOSE CONTROL) Take 237 mL by mouth three times daily with meals. Chocolate and strawberry flavor. sertraline (ZOLOFT) 100 mg tablet Take 1 tablet by mouth once daily. Compression Knee Highs KNEE HIGH COMPRESSION STOCKINGS 20- 30 MM. DX: EDEMA losartan (COZAAR) 50 mg tablet Take 1 tablet by mouth once daily. insulin detemir U-100 (LEVEMIR FLEXTOUCH U-100 INSULN) 100 unit/mL (3 mL) inpn injection Inject subcutaneous 30 units daily. (Patient taking differently: Inject 14 Units subcutaneously daily at bedtime. Inject subcutaneous 30 units daily. ) furosemide (LASIX) 20 mg tablet TAKE ONE TABLET BY MOUTH ONCE DAILY insulin aspart U-100 (NOVOLOG FLEXPEN U-100 INSULIN) 100 unit/mL inpn Take 1 unit per 10 grams of carbs +SSI. 150-200: 1unit, 201-250: 2units, 251-300: 3units, 301-350: 4units, 351-400:5units, TDD 30units. promethazine (PHENERGAN) 25 mg tablet Take 1 tablet by mouth every 6 hours as needed for Nausea/Vomiting. montelukast (SINGULAIR) 10 mg tablet TAKE 1 TABLET AT BEDTIME gabapentin (NEURONTIN) 300 mg capsule Take one capsule by mouth three times daily, as directed. DX: E11.40 Insulin [place], Disposable, (BD ULTRA-FINE DAYA PEN NEEDLES) 32 gauge x 5/32 ndle Use one needle for each dose. 4/day. hydroCHLOROthiazide (HYDRODIURIL, ESIDRIX) 50 mg tablet Take 1 tablet by mouth once daily. blood sugar diagnostic (TRUE METRIX GLUCOSE TEST STRIP) test strip Use as instructed 3-4 times daily. lancets (TRUEPLUS LANCETS) 33 gauge misc Use as directed 3- 4 times daily. pyridostigmine (MESTINON) 60 mg tablet Take 1 tablet by mouth three times daily. As needed based on activity. Dr. Land, [facility] cyclobenzaprine (FLEXERIL) 10 mg tablet Take 1 tablet by mouth three times daily as needed for Muscle Spasm. Dr. Swanson metoprolol tartrate, short acting, (LOPRESSOR) 50 mg tablet Take 1 tablet by mouth twice daily. budesonide-formoterol (SYMBICORT) 160-4.5 mcg/actuation inhaler Inhale 2 Puffs as instructed twice daily. albuterol HFA (VENTOLIN HFA) 90 mcg/actuation inhaler Inhale 2 Puffs as instructed every 4 hours as needed. ondansetron orally disintegrating (ZOFRAN ODT) 8 mg disintegrating tablet Take 8 mg by mouth as needed. trimethobenzamide (TIGAN) 300 mg capsule Take 1 capsule by mouth three times daily. Omeprazole 40 mg capsule Take 1 capsule by mouth twice daily before meals (0600/1600). sucralfate (CARAFATE) 1 gram tablet Take 1 g by mouth four times daily. MULTIVITAMIN ORAL Take by mouth. No current facility-administered medications for this visit. Medications and allergies reviewed by this provider. SOCIAL HISTORY Social History Marital status: Single Spouse name: Years of education: Number of children: 2 Social History Main Topics Smoking status: Current Every Day Smoker Packs/day: 1.00 Years: 26.00 Types: Cigarettes Smokeless tobacco: Former User Comment: down from 2 packs per day Alcohol use: Yes Comment: rarely Drug use: Yes Frequency: 3.0 times per week Types: Marijuana Comment: now down to once a week Sexual activity: Not Currently REVIEW OF SYSTEMS All other reviewed and negative other than HPI. OBJECTIVE: BP 150/82 (BP Site: Left Arm, BP Position: Sitting, BP Cuff Size: Regular Adult) Pulse 64 Temp 37 ?C (98.6 ?F) Resp 16 Wt 62.6 kg (138 lb) BMI 22.88 kg/m? . Vital signs reviewed by this provider. APPEARANCE Well appearing, alert, in no acute distress, well- hydrated, well nourished. HEART RRR with normal S1 and S2, no murmurs, no gallops, no JVD appreciated LUNG clear to auscultation MALE Penis normal, no urethral discharge, scrotum normal to palpation. No scrotal edema. Small amount of penile swelling. EXTREMITIES 1-2+ BLE edema. No edema to upper legs SKIN: less than 2 cm round incision site without active drainage. Slightly pinkened around incision site. Much improvement from previous demarcation. No warmth to touch, mild TTP. ASSESSMENT/PLAN: 1. Scrotal edema - ICD9: 608.86, ICD10: N50.89 (primary diagnosis) - improved - continue lasix and HCTZ as ordered - minimize salt intake - encouraged to get blood work completed that was ordered last week - follow-up as scheduled with Dr. Graham in January, sooner if needed or if edema returns 2. Bilateral lower extremity edema - ICD9: 782.3, ICD10: R60.0 -improving - encouraged to wear compression hose and elevate legs above heart level when sitting - minimize salt intake - continue lasix and HCTZ intake - follow-up as scheduled with Dr. Graham in January, sooner if needed or increasing swelling 3. Cellulitis of skin - ICD9: 682.9, ICD10: L03.90 - resolving - follow-up for increased swelling, redness, warmth, tenderness, to ER with red streaking, verbalizes understanding Bere Valle APRN.PICKER / PACKER Prescription instructions reviewed with patient as applicable. Patient advised if symptoms do not improve or if symptoms worsen sooner, to contact their primary care physician. Potential red flag symptoms discussed with the patient. Reviewed appropriate action plan to take if red flag symptoms occur. Patient agreeable to treatment plan. Bere Valle APRN.CNP 12/07/2017 1:35 PM Signed If you start having increased swelling notify office Referring Provider: CASSIE GRAHAM) [[id number]] Allergies As of Date: 12/07/2017 Noted Allergy Reaction LEVAQUIN (LEVOFLOXACIN) 12/07/2017 14 - Other: See Comments Comments: Aching in joints LISINOPRIL 11/14/2017 14 - Other: See Comments Comments: Lip swelling, possible angioedema LOSARTAN 12/07/2017 7 - Swelling NICODERM 10/03/2016 2 - Rash REGLAN (METOCLOPRAMIDE HCL) 07/26/2016 4 - Hives Date Reviewed: 12/07/2017 Reviewed by: Mary Dhillon LPN - Fully Assessed Reason for Visit: Recheck [92] Cmt: check edema and b/p Primary Visit Diagnosis:Scrotal edema [N50.89] Other Visit Diagnoses:Bilateral lower extremity edema [R60.0] Cellulitis of skin [L03.90] Prescriptions as of 12/07/2017 Sig: MUPIROCIN 2 % TOPICAL OINTMENT BOOST GLUCOSE CONTROL Take 237 mL by mouth three ti* SERTRALINE 100 MG TABLET Take 1 tablet by mouth once d* COMPOUNDED PRESCRIPTION KNEE HIGH COMPRESSION STOCKIN* LOSARTAN 50 MG TABLET Take 1 tablet by mouth once d* INSULIN DETEMIR (U-100) 100 U* Inject subcutaneous 30 units * Patient taking differently: Inject 14 Units subcutaneousl* FUROSEMIDE 20 MG TABLET TAKE ONE TABLET BY MOUTH ONCE* INSULIN ASPART U-100 100 UNI* Take 1 unit per 10 grams of c* PROMETHAZINE 25 MG TABLET Take 1 tablet by mouth every * MONTELUKAST 10 MG TABLET TAKE 1 TABLET AT BEDTIME GABAPENTIN 300 MG CAPSULE Take one capsule by mouth thr* PEN NEEDLE, DIABETIC 32 GAUGE* Use one needle for each dose.* HYDROCHLOROTHIAZIDE 50 MG TAB* Take 1 tablet by mouth once d* BLOOD SUGAR DIAGNOSTIC STRIPS Use as instructed 3-4 times d* LANCETS 33 GAUGE Use as directed 3-4 times willy* PYRIDOSTIGMINE BROMIDE 60 MG * Take 1 tablet by mouth three * CYCLOBENZAPRINE 10 MG TABLET Take 1 tablet by mouth three * METOPROLOL TARTRATE 50 MG TAB* Take 1 tablet by mouth twice * BUDESONIDE-FORMOTEROL HFA 160* Inhale 2 Puffs as instructed * ALBUTEROL SULFATE HFA 90 MCG/* Inhale 2 Puffs as instructed * ONDANSETRON 8 MG DISINTEGRATI* Take 8 mg by mouth as needed. TRIMETHOBENZAMIDE 300 MG CAPS* Take 1 capsule by mouth three* OMEPRAZOLE 40 MG CAPSULE,YONNY* Take 1 capsule by mouth twice* SUCRALFATE 1 GRAM TABLET Take 1 g by mouth four times * MULTIVITAMIN ORAL Take by mouth. Problem List As Of Date 12/07/2017 Noted Resolved Anxiety and depression [F41.9, F32.9] INVALID FOR* Hypertension [I10] Diabetic neuropathy (HCC) [E11.40] More... Asthma [J45.909] GERD (gastroesophageal reflux disease) [K21.9] IBS (irritable bowel syndrome) [K58.9] More... Myasthenia gravis (HCC) [G70.00] More... Tobacco use [Z72.0] Type I diabetes mellitus (HCC) [E10.9] More... Hyperlipidemia [E78.5] Other instructions from your clinician: If you start having increased swelling notify office Medications Discontinued During This Encounter cefADROxil (DURICEF) 500 mg capsule 11/30/2017 12/07/2017 Class: Med Update Si capsules twice daily for 7 days. Disc: Course of therapy completed Follow-up and Disposition History Recorded Encounter Status:Closed by BERE VALLE CNP on 12/07/17 JORGEOV Observed: 11/30/2017 Status: COMPLETED Source: [place] 10:40 AM [facility] REPOSITORY Office Visit ([facility]) AMARILYS KAISER JR. ([id number]) 1975 M Date Time Provider Department 11/30/17 10:40 AM CASSIE GRAHAM) [facility] During your visit today, we recorded the following information about you: Temperature Pulse Respiration Blood pressure 98.3 degrees 96/minute 16/minute 154/98 Weight 67.1 kg Cassie Graham MD 11/30/2017 11:12 AM Signed Chief Complaint No chief complaint on file. HPI Amarilys Víctor Kaiser Jr. is a 42 year old male who presents here today for Hospital Discharge Follow up.. Patient was admitted to [facility] on 11/23 and discharged on 11/26 with Acute MSSA RLE cellulitis of whitt post bedside IANDD, KADIE, uncontrolled DM type I, and chronically elevated LFTs. Patient had been discharged from the hospital 2 days prior for infection and was sent home with Augmentin, but symptoms worsened after he returned home. During this inpatient admission, was treated with IV Unasyn and Vancomycin. Remained afebrile without signs of sepsis throughout admission. Erythema and swelling improved with IV abx. Discharged arnaldo on Levaquin daily for 7 days along with bactroban topically 3 times daily for 7 days. f/u recommended with PCP and wound care in 3-5 days. KADIE resolved with IV fluids. A1C uncontrolled at 10.9 during admission. Instructed on continued lantus and sliding scale insulin. Check glucose QID and f/u with PCP and endo. Called for TCM this week, noted in bold below: TRANSITION CARE MANAGEMENT (TCM) INITIAL CONTACT Clinical Recruiter Outreach ? Provider Action/FYI: Patient's night time insulin was decreased to 14 units. Patient has some concerns with swelling. Lasix and HCT was held in the hospital but he is back taking.Incision the oozing has stopped just red. Some pain below infection on right leg. Per patient, tendon on from of whitt popping when walking. ? ? Initial contact with patient post discharge, spoke to patient. Patient identified by name and . ? TRANSITION CARE MANAGEMENT INITIAL OUTREACH DOCUMENTATION: *Please note that this section is currently only available to locations [employer] [facility] [employer]. Beginning December 05, patient discharge date and Outreach Attempt documentation will populate here automatically. ? No flowsheet data found. ? SUMMARY: -Pt discharged from [facility] on 11/26/17. -Admitted for: Acute MSSA right leg cellulitis, abscess status post bedside incision and drainage/acute Kidney injury/uncontrolled DM 1/chronic increased LFTs ? Do you have a hospital follow up appointment with your PCP? Appointment on 11/30/[address] Graham. Yes. Remind patient of appointment date, time, and location. If not within 14 calendar days of discharge - please reschedule accordingly. ? MEDICATIONS: Many patients have questions or concerns about their medications once they are home. Were you prescribed any new medications? Yes, Bactroban cream, tramadol which patient has completed this, ATB Cesadroxil ? Were you told to hold any medications? No Were any of your medications discontinued? No ? Do you have any questions about getting or taking your medications? No ? Your discharge instructions/After visit Summary (AVS) are important in guiding you through the recovery process. Is there anything I might help you understand? No ? Do you have all the necessary equipment and supplies at home? Yes ? Medical records from recent hospitalization: [facility] Since discharge, patient took single dose of the levaquin and had joint pain so called the hospital and they switched him to Cefadroxil 1000 mg BID for 7 days. Erythema has improved, no drainage from the IANDD site, denies fevers, vomiting. Admits to loose stools at home with abx without blood or mucous. Patient is up 20 lbs since his last OV since they held his lasix and HCTZ while inpatient. Has started taking them again and has been diuresing well. Swelling in his legs and scrotum has improved. States that his scrotum prior to starting medications was grapefruit sized, now down to orange size. Does not have a scale at home. Long acting insulin decreased due to hypoglcyemia in the hospital into the 30's. Currently on 14 units of Levemir. Stopped evening snack. Taking mealtimes as previously prescribed and morning glucose readings have been in the 160's and meal times have been in the high 100's. Has appointment with Dr. Fam on 12/18. Past medical history, appointments, medications, allergies reviewed. Previous Medical History PAST MEDICAL HISTORY Diagnosis Date - Anxiety and depression - Asthma - Diabetic neuropathy (HCC) Seeing Dr. Land - Emphysema lung (HCC) early stages - Fatty liver - GERD (gastroesophageal reflux disease) - Hyperlipidemia - Hypertension - IBS (irritable bowel syndrome) previously seeing GI - Myasthenia gravis (HCC) Seeing Dr. Land-neurology - Shingles - Tobacco use - Type I diabetes mellitus (HCC) Seeing Dr. Fam Previous Surgical History PAST SURGICAL HISTORY Procedure Laterality Date - COLONOSCOPY 09/08/2015 poor prep - procedure aborted - EGD 01/04/2016 [facility] - PAST SURGICAL HISTORY OF Thymectomy - PAST SURGICAL HISTORY OF Cholecystectomy - PAST SURGICAL HISTORY OF teeth extraction-total Family History FAMILY HISTORY Problem Relation Age of Onset - Cancer Father lung - other (Other) Daughter Depression/Psych - Thyroid Maternal Grandmother - Cancer Paternal Grandmother lung - Cancer Paternal Grandfather throat, brain - Hypertension Mother - other (thyroid issues) Mother Patient Allergies ALLERGIES Allergen Reactions - Lisinopril Other: See Comments Lip swelling, possible angioedema - Nicoderm Rash - Reglan [Metoclopram* Hives Current Medications Current Outpatient Prescriptions on File Prior to Visit: nut.tx.glucose intolerance,soy (BOOST GLUCOSE CONTROL) Take 237 mL by mouth three times daily with meals. Chocolate and strawberry flavor. sertraline (ZOLOFT) 100 mg tablet Take 1 tablet by mouth once daily. Compression Knee Highs KNEE HIGH COMPRESSION STOCKINGS 20- 30 MM. DX: EDEMA losartan (COZAAR) 50 mg tablet Take 1 tablet by mouth once daily. insulin detemir U-100 (LEVEMIR FLEXTOUCH U-100 INSULN) 100 unit/mL (3 mL) inpn injection Inject subcutaneous 30 units daily. furosemide (LASIX) 20 mg tablet TAKE ONE TABLET BY MOUTH ONCE DAILY insulin aspart U-100 (NOVOLOG FLEXPEN U-100 INSULIN) 100 unit/mL inpn Take 1 unit per 10 grams of carbs +SSI. 150-200: 1unit, 201-250: 2units, 251-300: 3units, 301-350: 4units, 351-400:5units, TDD 30units. promethazine (PHENERGAN) 25 mg tablet Take 1 tablet by mouth every 6 hours as needed for Nausea/Vomiting. montelukast (SINGULAIR) 10 mg tablet TAKE 1 TABLET AT BEDTIME gabapentin (NEURONTIN) 300 mg capsule Take one capsule by mouth three times daily, as directed. DX: E11.40 Insulin [place], Disposable, (BD ULTRA-FINE DAYA PEN NEEDLES) 32 gauge x 32 ndle Use one needle for each dose. 4/day. hydroCHLOROthiazide (HYDRODIURIL, ESIDRIX) 50 mg tablet Take 1 tablet by mouth once daily. blood sugar diagnostic (TRUE METRIX GLUCOSE TEST STRIP) test strip Use as instructed 3-4 times daily. lancets (TRUEPLUS LANCETS) 33 gauge misc Use as directed 3- 4 times daily. pyridostigmine (MESTINON) 60 mg tablet Take 1 tablet by mouth three times daily. As needed based on activity. Dr. Land, [facility] cyclobenzaprine (FLEXERIL) 10 mg tablet Take 1 tablet by mouth three times daily as needed for Muscle Spasm. Dr. Swanson metoprolol tartrate, short acting, (LOPRESSOR) 50 mg tablet Take 1 tablet by mouth twice daily. budesonide-formoterol (SYMBICORT) 160-4.5 mcg/actuation inhaler Inhale 2 Puffs as instructed twice daily. albuterol HFA (VENTOLIN HFA) 90 mcg/actuation inhaler Inhale 2 Puffs as instructed every 4 hours as needed. ondansetron orally disintegrating (ZOFRAN ODT) 8 mg disintegrating tablet Take 8 mg by mouth as needed. trimethobenzamide (TIGAN) 300 mg capsule Take 1 capsule by mouth three times daily. Omeprazole 40 mg capsule Take 1 capsule by mouth twice daily before meals (0600/1600). sucralfate (CARAFATE) 1 gram tablet Take 1 g by mouth four times daily. MULTIVITAMIN ORAL Take by mouth. No current facility-administered medications on file prior to visit. Social History Social History Marital status: Single Spouse name: Years of education: Number of children: 2 Social History Main Topics Smoking status: Current Every Day Smoker Packs/day: 1.00 Years: 26.00 Types: Cigarettes Smokeless tobacco: Former User Comment: down from 2 packs per day Alcohol use: Yes Comment: rarely Drug use: Yes Frequency: 3.0 times per week Types: Marijuana Comment: now down to once a week Sexual activity: Not Currently Review of Symptoms REVIEW OF SYSTEMS GENERAL: No weight loss, malaise or fevers RESPIRATORY: Negative for cough, hemoptysis, wheezing, COPD, dyspnea or shortness of breath CARDIOVASCULAR: Negative for chest pain, hypertension, CHF, orthopnea or palpitations GI: No nausea, vomiting, or diarrhea SKIN: Negative for lesions, rash, and itching EXAM: BP 154/98 Pulse 96 Temp 36.8 ?C (98.3 ?F) (Tympanic) Resp 16 Wt 67.1 kg (148 lb) SpO2 96% BMI 24.54 kg/m? General Appearance: Well appearing, alert, in no acute distress, well-hydrated, well nourished.. Skin: erythema improved from discharge based on previous demarcation. Has TTP in right LE, minimal warmth to touch, erythema about 2-3 cm around incision site without active drainage or fluctuance. Lungs: Lungs clear to auscultation. No wheezing, rhonchi, rales. Heart: RRR without murmur, gallop, or rubs. No ectopy. Abdomen: Normal abdominal exam, Abdomen soft, non-tender. Bowel sounds normal. No masses, organomegaly. Extremities: Edema: 2+ edema to knees bilaterally, 1+ in upper legs. Genitalia: penile and scrotal edema without mass, erythema, lesions. Health Maintenance List BP CONTROLLED (<130/80) due on 1992 INFLUENZA(1) due on 11/25/2017 DIABETES MED ADHERENCE due on 12/25/2017 STEROID INHALER ADHERENCE due on 12/25/2017 HBA1C due on 02/07/2018 DIABETIC FOOT EXAM due on 04/03/2018 LDL CHOLESTEROL due on 04/25/2018 DILATED RETINAL EXAM due on 10/20/2018 URINE ALBUMIN:CREATININE RATIO due on 11/07/2018 ANNUAL PCP TEAM CHRONIC DISEASE VISIT due on 11/14/2018 DTAP,TDAP,TD(2 - Td) due on 10/03/2026 ONE PNEUMOVAX PRIOR TO AGE 65 Completed Data reviewed Component Latest Ref Rng AND Units 04/25/2017 11/07/2017 Protein, Total 6.3 - 8.0 g/dL 5.4 (L) 5.8 (L) Albumin 3.9 - 4.9 g/dL 2.3 (L) 2.6 (L) Calcium 8.5 - 10.2 mg/dL 8.6 9.0 Bilirubin, Total 0.2 - 1.3 mg/dL <0.2 (L) <0.2 (L) Alkaline Phosphatase 36 - 108 U/L 188 (H) 209 (H) AST 14 - 40 U/L 67 (H) 35 Glucose 74 - 99 mg/dL 296 (H) 250 (H) BUN 9 - 24 mg/dL 25 (H) 24 Creatinine 0.73 - 1.22 mg/dL 0.85 1.51 (H) Sodium 136 - 144 mmol/L 131 (L) 132 (L) Potassium 3.7 - 5.1 mmol/L 4.3 4.1 Chloride 97 - 105 mmol/L 93 (L) 92 (L) CO2 22 - 30 mmol/L 29 25 Anion Gap 9 - 18 mmol/L 9 15 ALT 10 - 54 U/L 86 (H) 45 eGFR- >60 >60 eGFR-All Other Races . >60 51 Cholesterol, Total <200 mg/dL 330 (H) Triglyceride <150 mg/dL 276 (H) HDL Cholesterol >39 mg/dL 72 LDL Cholesterol <100 mg/dL 203 (H) Non HDL Cholesterol <130 mg/dL 258 (H) Fasting Time hrs 11 VLDL Cholesterol <30 mg/dL 55 (H) TC:HDL Ratio <5.10 4.58 LDL:HDL Ratio <2.54 2.82 (H) Creatinine, Ur Random (UCRR) 20 - 300 mg/dL 86.8 Albumin, Urine Random 0.0 - 23.0 mg/L >4,400.0 (H) Albumin/Creat Ratio 0 - 30 mg/g Not calculated Hemoglobin A1C 4.3 - 5.6 % 11.3 (H) Estimated Average Glucose mg/dL 278 NT Pro BNP <125 pg/mL 625 (H) ASSESSMENT/PLAN: 1. Cellulitis of skin - ICD9: 682.9, ICD10: L03.90 (primary diagnosis) - Continue treatment with Cefadroxil (Duricef) - No lymphangetic streaking, this was defined for patient to watch for and to seek medical care immediately if appears - Area of cellulitis defined with pen, seek further attention if this area continues to enlarge - Follow up for recheck in 1 week 2. Type 1 diabetes mellitus with diabetic polyneuropathy (HCC) - ICD9: 250.61, 357.2, ICD10: E10.42 Continue lower dose of Levemir and meal time insulin. Diabetic diet. F/u with endocrinology as scheduled this month. 3. KADIE (acute kidney injury) (HCC) - ICD9: 584.9, ICD10: N17.9 Repeat CMP today with restart of lasix and HCTZ. - COMP METABOLIC PANEL 4. Hospital discharge follow-up - ICD9: V67.59, ICD10: Z09 Infection improving. Swelling improving. Finish abx and follow up in 1 week. 5. Scrotal edema - ICD9: 608.86, ICD10: N50.89 Possibly 2/2 malnutrition vs cardiac etiology. Ordered echo last year which has not been obtained. Will have patient continue his lasix and HCTZ as swelling is improving. Repeat CMP, check BNP and will call with results. No sign of pulmonary edema today, so will hold off on CXR. If BNP elevated will reorder echo. - COMP METABOLIC PANEL - NT PRO BNP 6. Bilateral lower extremity edema - ICD9: 782.3, ICD10: R60.0 See above. - COMP METABOLIC PANEL - NT PRO BNP Cassie Graham MD Referring Provider: SELF [[id number]] Allergies As of Date: 11/30/2017 Noted Allergy Reaction LISINOPRIL 11/14/2017 14 - Other: See Comments Comments: Lip swelling, possible angioedema NICODERM 10/03/2016 2 - Rash REGLAN (METOCLOPRAMIDE HCL) 07/26/2016 4 - Hives Date Reviewed: 11/30/2017 Reviewed by: Petr Paul Ma - Fully Assessed Reason for Visit: Hospital Follow Up [177] Primary Visit Diagnosis:Cellulitis of skin [L03.90] Other Visit Diagnoses:Type 1 diabetes mellitus with diabetic polyneuropathy (HCC) [E10.42] KADIE (acute kidney injury) (HCC) [N17.9] Hospital discharge follow-up [Z09] Scrotal edema [N50.89] Bilateral lower extremity edema [R60.0] Order(s):cefADROxil (DURICEF) 500 mg capsule2 capsules twice daily for 7 days.Disp: Rfl: COMP METABOLIC PANEL [SQCMP] Order #: [id number] FUTURE NT PRO BNP [SQNTBNP] Order #: [id number] FUTURE Prescriptions as of 11/30/2017 Sig: MUPIROCIN 2 % TOPICAL OINTMENT CEFADROXIL 500 MG CAPSULE 2 capsules twice daily for 7 * BOOST GLUCOSE CONTROL Take 237 mL by mouth three ti* SERTRALINE 100 MG TABLET Take 1 tablet by mouth once d* COMPOUNDED PRESCRIPTION KNEE HIGH COMPRESSION STOCKIN* LOSARTAN 50 MG TABLET Take 1 tablet by mouth once d* INSULIN DETEMIR (U-100) 100 U* Inject subcutaneous 30 units * Patient taking differently: Inject 14 Units subcutaneousl* FUROSEMIDE 20 MG TABLET TAKE ONE TABLET BY MOUTH ONCE* INSULIN ASPART U-100 100 UNI* Take 1 unit per 10 grams of c* PROMETHAZINE 25 MG TABLET Take 1 tablet by mouth every * MONTELUKAST 10 MG TABLET TAKE 1 TABLET AT BEDTIME GABAPENTIN 300 MG CAPSULE Take one capsule by mouth thr* PEN NEEDLE, DIABETIC 32 GAUGE* Use one needle for each dose.* HYDROCHLOROTHIAZIDE 50 MG TAB* Take 1 tablet by mouth once d* BLOOD SUGAR DIAGNOSTIC STRIPS Use as instructed 3-4 times d* LANCETS 33 GAUGE Use as directed 3-4 times willy* PYRIDOSTIGMINE BROMIDE 60 MG * Take 1 tablet by mouth three * CYCLOBENZAPRINE 10 MG TABLET Take 1 tablet by mouth three * METOPROLOL TARTRATE 50 MG TAB* Take 1 tablet by mouth twice * BUDESONIDE-FORMOTEROL HFA 160* Inhale 2 Puffs as instructed * ALBUTEROL SULFATE HFA 90 MCG/* Inhale 2 Puffs as instructed * ONDANSETRON 8 MG DISINTEGRATI* Take 8 mg by mouth as needed. TRIMETHOBENZAMIDE 300 MG CAPS* Take 1 capsule by mouth three* OMEPRAZOLE 40 MG CAPSULE,YONNY* Take 1 capsule by mouth twice* SUCRALFATE 1 GRAM TABLET Take 1 g by mouth four times * MULTIVITAMIN ORAL Take by mouth. Problem List As Of Date 11/30/2017 Noted Resolved Anxiety and depression [F41.9, F32.9] INVALID FOR* Hypertension [I10] Diabetic neuropathy (HCC) [E11.40] More... Asthma [J45.909] GERD (gastroesophageal reflux disease) [K21.9] IBS (irritable bowel syndrome) [K58.9] More... Myasthenia gravis (HCC) [G70.00] More... Tobacco use [Z72.0] Type I diabetes mellitus (HCC) [E10.9] More... Hyperlipidemia [E78.5] Prescriptions ordered this encounter Disp Refills Start End CEFADROXIL 500 MG CAPSULE 11/30/2017 12/07/2017 Class: Med Update Si capsules twice daily for 7 days. Medications Discontinued During This Encounter cefADROxil (DURICEF) 500 mg capsule 11/26/2017 11/30/2017 Class: Historical Med Sig: Disc: Reason for discontinue is not on file. Disposition: Return in about 1 day (around 12/01/2017). Follow-up and Disposition History Recorded Encounter Status:Closed by CASSIE GRAHAM MD on 11/30/17 PROGRESS Observed: 11/30/2017 Status: COMPLETED Source: [place] 10:26 AM [facility] REPOSITORY O ID: [id number] Author: Cassie Squires) Gladys Service: (none) Author Type: Physician Type: Progress Notes Filed: 11/30/2017 11:12 AM Note Text: Chief Complaint No chief complaint on file. HPI Amarilys Kaiser Jr. is a 42 year old male who presents here today for Hospital Discharge Follow up.. Patient was admitted to [facility] on 11/23 and discharged on 11/26 with Acute MSSA RLE cellulitis of whitt post bedside IANDD, KADIE, uncontrolled DM type I, and chronically elevated LFTs. Patient had been discharged from the hospital 2 days prior for infection and was sent home with Augmentin, but symptoms worsened after he returned home. During this inpatient admission, was treated with IV Unasyn and Vancomycin. Remained afebrile without signs of sepsis throughout admission. Erythema and swelling improved with IV abx. Discharged arnaldo on Levaquin daily for 7 days along with bactroban topically 3 times daily for 7 days. f/u recommended with PCP and wound care in 3-5 days. KADIE resolved with IV fluids. A1C uncontrolled at 10.9 during admission. Instructed on continued lantus and sliding scale insulin. Check glucose QID and f/u with PCP and endo. Called for TCM this week, noted in bold below: TRANSITION CARE MANAGEMENT (TCM) INITIAL CONTACT Clinical Recruiter Outreach ? Provider Action/FYI: Patient's night time insulin was decreased to 14 units. Patient has some concerns with swelling. Lasix and HCT was held in the hospital but he is back taking.Incision the oozing has stopped just red. Some pain below infection on right leg. Per patient, tendon on from of whitt popping when walking. ? ? Initial contact with patient post discharge, spoke to patient. Patient identified by name and . ? TRANSITION CARE MANAGEMENT INITIAL OUTREACH DOCUMENTATION: *Please note that this section is currently only available to locations [employer]. Beginning December 05, patient discharge date and Outreach Attempt documentation will populate here automatically. ? No flowsheet data found. ? SUMMARY: -Pt discharged from [facility] on 11/26/17. -Admitted for: Acute MSSA right leg cellulitis, abscess status post bedside incision and drainage/acute Kidney injury/uncontrolled DM 1/chronic increased LFTs ? Do you have a hospital follow up appointment with your PCP? Appointment on 11/30/[address] Graham. Yes. Remind patient of appointment date, time, and location. If not within 14 calendar days of discharge - please reschedule accordingly. ? MEDICATIONS: Many patients have questions or concerns about their medications once they are home. Were you prescribed any new medications? Yes, Bactroban cream, tramadol which patient has completed this, ATB Cesadroxil ? Were you told to hold any medications? No Were any of your medications discontinued? No ? Do you have any questions about getting or taking your medications? No ? Your discharge instructions/After visit Summary (AVS) are important in guiding you through the recovery process. Is there anything I might help you understand? No ? Do you have all the necessary equipment and supplies at home? Yes ? Medical records from recent hospitalization: [facility] Since discharge, patient took single dose of the levaquin and had joint pain so called the hospital and they switched him to Cefadroxil 1000 mg BID for 7 days. Erythema has improved, no drainage from the IANDD site, denies fevers, vomiting. Admits to loose stools at home with abx without blood or mucous. Patient is up 20 lbs since his last OV since they held his lasix and HCTZ while inpatient. Has started taking them again and has been diuresing well. Swelling in his legs and scrotum has improved. States that his scrotum prior to starting medications was grapefruit sized, now down to orange size. Does not have a scale at home. Long acting insulin decreased due to hypoglcyemia in the hospital into the 30's. Currently on 14 units of Levemir. Stopped evening snack. Taking mealtimes as previously prescribed and morning glucose readings have been in the 160's and meal times have been in the high 100's. Has appointment with Dr. Fam on 12/18. Past medical history, appointments, medications, allergies reviewed. Previous Medical History PAST MEDICAL HISTORY Diagnosis Date - Anxiety and depression - Asthma - Diabetic neuropathy (HCC) Seeing Dr. Land - Emphysema lung ([facility]) early stages - Fatty liver - GERD (gastroesophageal reflux disease) - Hyperlipidemia - Hypertension - IBS (irritable bowel syndrome) previously seeing GI - Myasthenia gravis ([facility]) Seeing Dr. Land-neurology - Shingles - Tobacco use - Type I diabetes mellitus (HCC) Seeing Dr. Fam Previous Surgical History PAST SURGICAL HISTORY Procedure Laterality Date - COLONOSCOPY 09/08/2015 poor prep - procedure aborted - EGD 01/04/2016 [facility] - PAST SURGICAL HISTORY OF Thymectomy - PAST SURGICAL HISTORY OF Cholecystectomy - PAST SURGICAL HISTORY OF teeth extraction-total Family History FAMILY HISTORY Problem Relation Age of Onset - Cancer Father lung - other (Other) Daughter Depression/Psych - Thyroid Maternal Grandmother - Cancer Paternal Grandmother lung - Cancer Paternal Grandfather throat, brain - Hypertension Mother - other (thyroid issues) Mother Patient Allergies ALLERGIES Allergen Reactions - Lisinopril Other: See Comments Lip swelling, possible angioedema - Nicoderm Rash - Reglan [Metoclopram* Hives Current Medications Current Outpatient Prescriptions on File Prior to Visit: nut.tx.glucose intolerance,soy (BOOST GLUCOSE CONTROL) Take 237 mL by mouth three times daily with meals. Chocolate and strawberry flavor. sertraline (ZOLOFT) 100 mg tablet Take 1 tablet by mouth once daily. Compression Knee Highs KNEE HIGH COMPRESSION STOCKINGS 20- 30 MM. DX: EDEMA losartan (COZAAR) 50 mg tablet Take 1 tablet by mouth once daily. insulin detemir U-100 (LEVEMIR FLEXTOUCH U-100 INSULN) 100 unit/mL (3 mL) inpn injection Inject subcutaneous 30 units daily. furosemide (LASIX) 20 mg tablet TAKE ONE TABLET BY MOUTH ONCE DAILY insulin aspart U-100 (NOVOLOG FLEXPEN U-100 INSULIN) 100 unit/mL inpn Take 1 unit per 10 grams of carbs +SSI. 150-200: 1unit, 201-250: 2units, 251-300: 3units, 301-350: 4units, 351-400:5units, TDD 30units. promethazine (PHENERGAN) 25 mg tablet Take 1 tablet by mouth every 6 hours as needed for Nausea/Vomiting. montelukast (SINGULAIR) 10 mg tablet TAKE 1 TABLET AT BEDTIME gabapentin (NEURONTIN) 300 mg capsule Take one capsule by mouth three times daily, as directed. DX: E11.40 Insulin [place], Disposable, (BD ULTRA-FINE DAYA PEN NEEDLES) 32 gauge x 5/32 ndle Use one needle for each dose. 4/day. hydroCHLOROthiazide (HYDRODIURIL, ESIDRIX) 50 mg tablet Take 1 tablet by mouth once daily. blood sugar diagnostic (TRUE METRIX GLUCOSE TEST STRIP) test strip Use as instructed 3-4 times daily. lancets (TRUEPLUS LANCETS) 33 gauge misc Use as directed 3- 4 times daily. pyridostigmine (MESTINON) 60 mg tablet Take 1 tablet by mouth three times daily. As needed based on activity. Dr. Land, [facility] cyclobenzaprine (FLEXERIL) 10 mg tablet Take 1 tablet by mouth three times daily as needed for Muscle Spasm. Dr. Swanson metoprolol tartrate, short acting, (LOPRESSOR) 50 mg tablet Take 1 tablet by mouth twice daily. budesonide-formoterol (SYMBICORT) 160-4.5 mcg/actuation inhaler Inhale 2 Puffs as instructed twice daily. albuterol HFA (VENTOLIN HFA) 90 mcg/actuation inhaler Inhale 2 Puffs as instructed every 4 hours as needed. ondansetron orally disintegrating (ZOFRAN ODT) 8 mg disintegrating tablet Take 8 mg by mouth as needed. trimethobenzamide (TIGAN) 300 mg capsule Take 1 capsule by mouth three times daily. Omeprazole 40 mg capsule Take 1 capsule by mouth twice daily before meals (0600/1600). sucralfate (CARAFATE) 1 gram tablet Take 1 g by mouth four times daily. MULTIVITAMIN ORAL Take by mouth. No current facility-administered medications on file prior to visit. Social History Social History Marital status: Single Spouse name: Years of education: Number of children: 2 Social History Main Topics Smoking status: Current Every Day Smoker Packs/day: 1.00 Years: 26.00 Types: Cigarettes Smokeless tobacco: Former User Comment: down from 2 packs per day Alcohol use: Yes Comment: rarely Drug use: Yes Frequency: 3.0 times per week Types: Marijuana Comment: now down to once a week Sexual activity: Not Currently Review of Symptoms REVIEW OF SYSTEMS GENERAL: No weight loss, malaise or fevers RESPIRATORY: Negative for cough, hemoptysis, wheezing, COPD, dyspnea or shortness of breath CARDIOVASCULAR: Negative for chest pain, hypertension, CHF, orthopnea or palpitations GI: No nausea, vomiting, or diarrhea SKIN: Negative for lesions, rash, and itching EXAM: BP 154/98 Pulse 96 Temp 36.8 ?C (98.3 ?F) (Tympanic) Resp 16 Wt 67.1 kg (148 lb) SpO2 96% BMI 24.54 kg/m? General Appearance: Well appearing, alert, in no acute distress, well-hydrated, well nourished.. Skin: erythema improved from discharge based on previous demarcation. Has TTP in right LE, minimal warmth to touch, erythema about 2- 3 cm around incision site without active drainage or fluctuance. Lungs: Lungs clear to auscultation. No wheezing, rhonchi, rales. Heart: RRR without murmur, gallop, or rubs. No ectopy. Abdomen: Normal abdominal exam, Abdomen soft, non-tender. Bowel sounds normal. No masses, organomegaly. Extremities: Edema: 2+ edema to knees bilaterally, 1+ in upper legs. Genitalia: penile and scrotal edema without mass, erythema, lesions. Health Maintenance List BP CONTROLLED (<130/80) due on 1992 INFLUENZA(1) due on 11/25/2017 DIABETES MED ADHERENCE due on 12/25/2017 STEROID INHALER ADHERENCE due on 12/25/2017 HBA1C due on 02/07/2018 DIABETIC FOOT EXAM due on 04/03/2018 LDL CHOLESTEROL due on 04/25/2018 DILATED RETINAL EXAM due on 10/20/2018 URINE ALBUMIN:CREATININE RATIO due on 11/07/2018 ANNUAL PCP TEAM CHRONIC DISEASE VISIT due on 11/14/2018 DTAP,TDAP,TD(2 - Td) due on 10/03/2026 ONE PNEUMOVAX PRIOR TO AGE 65 Completed Data reviewed Component Latest Ref Rng AND Units 04/25/2017 11/07/2017 Protein, Total 6.3 - 8.0 g/dL 5.4 (L) 5.8 (L) Albumin 3.9 - 4.9 g/dL 2.3 (L) 2.6 (L) Calcium 8.5 - 10.2 mg/dL 8.6 9.0 Bilirubin, Total 0.2 - 1.3 mg/dL <0.2 (L) <0.2 (L) Alkaline Phosphatase 36 - 108 U/L 188 (H) 209 (H) AST 14 - 40 U/L 67 (H) 35 Glucose 74 - 99 mg/dL 296 (H) 250 (H) BUN 9 - 24 mg/dL 25 (H) 24 Creatinine 0.73 - 1.22 mg/dL 0.85 1.51 (H) Sodium 136 - 144 mmol/L 131 (L) 132 (L) Potassium 3.7 - 5.1 mmol/L 4.3 4.1 Chloride 97 - 105 mmol/L 93 (L) 92 (L) CO2 22 - 30 mmol/L 29 25 Anion Gap 9 - 18 mmol/L 9 15 ALT 10 - 54 U/L 86 (H) 45 eGFR- >60 >60 eGFR-All Other Races . >60 51 Cholesterol, Total <200 mg/dL 330 (H) Triglyceride <150 mg/dL 276 (H) HDL Cholesterol >39 mg/dL 72 LDL Cholesterol <100 mg/dL 203 (H) Non HDL Cholesterol <130 mg/dL 258 (H) Fasting Time hrs 11 VLDL Cholesterol <30 mg/dL 55 (H) TC:HDL Ratio <5.10 4.58 LDL:HDL Ratio <2.54 2.82 (H) Creatinine, Ur Random (UCRR) 20 - 300 mg/dL 86.8 Albumin, Urine Random 0.0 - 23.0 mg/L >4,400.0 (H) Albumin/Creat Ratio 0 - 30 mg/g Not calculated Hemoglobin A1C 4.3 - 5.6 % 11.3 (H) Estimated Average Glucose mg/dL 278 NT Pro BNP <125 pg/mL 625 (H) ASSESSMENT/PLAN: 1. Cellulitis of skin - ICD9: 682.9, ICD10: L03.90 (primary diagnosis) - Continue treatment with Cefadroxil (Duricef) - No lymphangetic streaking, this was defined for patient to watch for and to seek medical care immediately if appears - Area of cellulitis defined with pen, seek further attention if this area continues to enlarge - Follow up for recheck in 1 week 2. Type 1 diabetes mellitus with diabetic polyneuropathy (HCC) - ICD9: 250.61, 357.2, ICD10: E10.42 Continue lower dose of Levemir and meal time insulin. Diabetic diet. F/u with endocrinology as scheduled this month. 3. KADEI (acute kidney injury) (HCC) - ICD9: 584.9, ICD10: N17.9 Repeat CMP today with restart of lasix and HCTZ. - COMP METABOLIC PANEL 4. Hospital discharge follow-up - ICD9: V67.59, ICD10: Z09 Infection improving. Swelling improving. Finish abx and follow up in 1 week. 5. Scrotal edema - ICD9: 608.86, ICD10: N50.89 Possibly 2/2 malnutrition vs cardiac etiology. Ordered echo last year which has not been obtained. Will have patient continue his lasix and HCTZ as swelling is improving. Repeat CMP, check BNP and will call with results. No sign of pulmonary edema today, so will hold off on CXR. If BNP elevated will reorder echo. - COMP METABOLIC PANEL - NT PRO BNP 6. Bilateral lower extremity edema - ICD9: 782.3, ICD10: R60.0 See above. - COMP METABOLIC PANEL - NT PRO BNP Cassie Graham MD PROGRESS Observed: 11/29/2017 Status: COMPLETED Source: [place] 11:09 AM [facility] REPOSITORY HNO ID: [id number] Author: Cassie Squires) Gladys Service: (none) Author Type: Physician Type: Progress Notes Filed: 11/29/2017 11:09 AM Note Text: Reviewed. Will discuss at OV tomorrow. PROGRESS Observed: 11/29/2017 Status: COMPLETED Source: [place] 10:57 AM [facility] REPOSITORY HNO ID: [id number] Author: Francesco Christian LPN Service: (none) Author Type: (none) Type: Progress Notes Filed: 12/11/2017 11:29 AM Note Text: TRANSITION CARE MANAGEMENT (TCM) INITIAL CONTACT Clinical Recruiter Outreach Provider Action/FYI: Patient's night time insulin was decreased to 14 units. Patient has some concerns with swelling. Lasix and HCT was held in the hospital but he is back taking.Incision the oozing has stopped just red. Some pain below infection on right leg. Per patient, tendon on from of whitt popping when walking. Initial contact with patient post discharge, spoke to patient. Patient identified by name and . TRANSITION CARE MANAGEMENT INITIAL OUTREACH DOCUMENTATION: *Please note that this section is currently only available to locations [employer] [facility] [employer]. Beginning December 05, patient discharge date and Outreach Attempt documentation will populate here automatically. No flowsheet data found. SUMMARY: -Pt discharged from [facility] on 11/26/17. -Admitted for: Acute MSSA right leg cellulitis, abscess status post bedside incision and drainage/acute Kidney injury/uncontrolled DM 1/chronic increased LFTs Do you have a hospital follow up appointment with your PCP? Appointment on 11/30/[address] Graham. Yes. Remind patient of appointment date, time, and location. If not within 14 calendar days of discharge - please reschedule accordingly. MEDICATIONS: Many patients have questions or concerns about their medications once they are home. Were you prescribed any new medications? Yes, Bactroban cream, tramadol which patient has completed this, ATB Cesadroxil Were you told to hold any medications? No Were any of your medications discontinued? No Do you have any questions about getting or taking your medications? No Your discharge instructions/After visit Summary (AVS) are important in guiding you through the recovery process. Is there anything I might help you understand? No Do you have all the necessary equipment and supplies at home? Yes Medical records from recent hospitalization: [facility] CNPTOUTREACH Observed: 11/29/2017 Status: COMPLETED Source: [place] 12:00 AM [facility] REPOSITORY Patient Outreach (FAMPWS) JOBAMARILYS Víctor MALAGON ([id number]) 1975 M Date Time Provider Department 11/29/17 CASSIE GRAHAM) JOVANPWS During your visit today, we recorded the following information about you: Francesco Christian MARKET DEVELOPMENT EXECUTIVE 12/11/2017 11:29 AM Signed TRANSITION CARE MANAGEMENT (TCM) INITIAL CONTACT Clinical Recruiter Outreach Provider Action/FYI: Patient's night time insulin was decreased to 14 units. Patient has some concerns with swelling. Lasix and HCT was held in the hospital but he is back taking.Incision the oozing has stopped just red. Some pain below infection on right leg. Per patient, tendon on from of whitt popping when walking. Initial contact with patient post discharge, spoke to patient. Patient identified by name and . TRANSITION CARE MANAGEMENT INITIAL OUTREACH DOCUMENTATION: *Please note that this section is currently only available to locations [employer] [facility] [employer]. Beginning December 05, patient discharge date and Outreach Attempt documentation will populate here automatically. No flowsheet data found. SUMMARY: -Pt discharged from [facility] on 11/26/17. -Admitted for: Acute MSSA right leg cellulitis, abscess status post bedside incision and drainage/acute Kidney injury/uncontrolled DM 1/chronic increased LFTs Do you have a hospital follow up appointment with your PCP? Appointment on 11/30/[address] Graham. Yes. Remind patient of appointment date, time, and location. If not within 14 calendar days of discharge - please reschedule accordingly. MEDICATIONS: Many patients have questions or concerns about their medications once they are home. Were you prescribed any new medications? Yes, Bactroban cream, tramadol which patient has completed this, ATB Cesadroxil Were you told to hold any medications? No Were any of your medications discontinued? No Do you have any questions about getting or taking your medications? No Your discharge instructions/After visit Summary (AVS) are important in guiding you through the recovery process. Is there anything I might help you understand? No Do you have all the necessary equipment and supplies at home? Yes Medical records from recent hospitalization: [facility] Cassie Graham MD 11/29/2017 11:09 AM Signed Reviewed. Will discuss at OV tomorrow. Allergies As of Date: 11/29/2017 Noted Allergy Reaction LISINOPRIL 11/14/2017 14 - Other: See Comments Comments: Lip swelling, possible angioedema NICODERM 10/03/2016 2 - Rash REGLAN (METOCLOPRAMIDE HCL) 07/26/2016 4 - Hives Date Reviewed: 11/14/2017 Reviewed by: Petr Paul Ma - Fully Assessed Reason for Visit: TCM note [Other] Prescriptions as of 11/29/2017 Sig: BOOST GLUCOSE CONTROL Take 237 mL by mouth three ti* SERTRALINE 100 MG TABLET Take 1 tablet by mouth once d* COMPOUNDED PRESCRIPTION KNEE HIGH COMPRESSION STOCKIN* LOSARTAN 50 MG TABLET Take 1 tablet by mouth once d* INSULIN DETEMIR (U-100) 100 U* Inject subcutaneous 30 units * Patient taking differently: Inject 14 Units subcutaneousl* FUROSEMIDE 20 MG TABLET TAKE ONE TABLET BY MOUTH ONCE* INSULIN ASPART U-100 100 UNI* Take 1 unit per 10 grams of c* PROMETHAZINE 25 MG TABLET Take 1 tablet by mouth every * MONTELUKAST 10 MG TABLET TAKE 1 TABLET AT BEDTIME GABAPENTIN 300 MG CAPSULE Take one capsule by mouth thr* PEN NEEDLE, DIABETIC 32 GAUGE* Use one needle for each dose.* HYDROCHLOROTHIAZIDE 50 MG TAB* Take 1 tablet by mouth once d* BLOOD SUGAR DIAGNOSTIC STRIPS Use as instructed 3-4 times d* LANCETS 33 GAUGE Use as directed 3-4 times willy* PYRIDOSTIGMINE BROMIDE 60 MG * Take 1 tablet by mouth three * CYCLOBENZAPRINE 10 MG TABLET Take 1 tablet by mouth three * METOPROLOL TARTRATE 50 MG TAB* Take 1 tablet by mouth twice * BUDESONIDE-FORMOTEROL HFA 160* Inhale 2 Puffs as instructed * ALBUTEROL SULFATE HFA 90 MCG/* Inhale 2 Puffs as instructed * ONDANSETRON 8 MG DISINTEGRATI* Take 8 mg by mouth as needed. TRIMETHOBENZAMIDE 300 MG CAPS* Take 1 capsule by mouth three* OMEPRAZOLE 40 MG CAPSULE,YONNY* Take 1 capsule by mouth twice* SUCRALFATE 1 GRAM TABLET Take 1 g by mouth four times * MULTIVITAMIN ORAL Take by mouth. Problem List As Of Date 11/29/2017 Noted Resolved Anxiety and depression [F41.9, F32.9] INVALID FOR* Hypertension [I10] Diabetic neuropathy (HCC) [E11.40] More... Asthma [J45.909] GERD (gastroesophageal reflux disease) [K21.9] IBS (irritable bowel syndrome) [K58.9] More... Myasthenia gravis (HCC) [G70.00] More... Tobacco use [Z72.0] Type I diabetes mellitus (HCC) [E10.9] More... Hyperlipidemia [E78.5] Encounter Status:Closed by FRANCESCO CHRISTIAN LPN on 12/11/17 DISCHARGE SUMMARY Observed: 11/26/2017 Status: F Source: [place] 3:40 PM [facility] REPOSITORY [facility] Medical Records Department [address] [place] [id number] Discharge Summary 11/26/17 1456 MR#: [id number] Acct: [id number] Name: JOBAMARILYS D Rep #: [id number] : 1975 42 From: Ermelinda Ambrose MD PCP: Jose Graham MD Status: DIS IN Y [id number] ADDENDUM by Ermelinda Ambrose on 11/26/17 at 1540 Code Visit The patient called the floor back and he stated that he took 1 dose of Levaquin and that caused significant joint pain to him. I canceled the Levaquin prescription and I sent another E prescription for Duricef 1000 mg p.o. twice daily for 7 days to [facility] pharmacy on November 26, 2012 at 3:33 PM. 11/26/17 1540 <Electronically signed by Ermelinda Ambrose MD> Date Ermelinda Ambrose MD cc: Jose Graham MD; Ermelinda Ambrose * Signed Discharge Date and Diagnosis Date of Admission: 11/23/17 Date of Discharge: 11/26/17 - Primary Discharge Diagnosis #1 acute MSSA right leg cellulitis/abscess status post bedside incision and drainage. #2 acute kidney injury. #3 uncontrolled type 1 diabetes mellitus. #4 chronically elevated LFTs. - Secondary Discharge Diagnosis Chronic Problems IBS (irritable bowel syndrome) (Chronic) HTN (hypertension) (Chronic) Diabetes type I (Chronic) Myasthenia gravis (Chronic) Hospital Course and Treatment Imaging Results: Clinical Impression(s) from Imaging Studies Tibia/Fibula X-Ray 11/23/17 16:34 IMPRESSION: Normal x-ray examination of the tibia and fibula. Electronically Signed: Francesco Pride MD at 18:09 EDT Tel , Service support , Chest X-Ray 11/23/17 16:45 IMPRESSION: 1. Trace left pleural effusion versus chronic fibrosis. 2. Minimal fibrotic changes in the lung bases. Electronically Signed: Francesco Pride MD at 18:08 EDT Tel , Service support , Consultations 11/23/17 21:44 Consult: Onc/Wound/dealmaker Routine Comment: Operations: None Procedures: None Summary of Care Provided: Patient was seen and examined on the day of discharge and appeared to be stable to be discharged home. Swelling and erythema of the right leg significantly improved. He has been afebrile since admission. His vital signs are stable. - Physical Exam General: Alert, Oriented x3, Cooperative, No apparent distress. HEENT: Atraumatic, PERRLA, EOMI. Neck: Supple, No JVD, Negative Carotid Bruits, Trachea Midline, Thyroid Normal. Lungs: Clear to auscultation, Normal air movement, No rhonchi, No wheeze, No rales. Cardiovascular: Regular rate, Regular Rhythm, Normal S1, Normal S2, PMI Normal. Abdomen: Bowel Sounds Present, Soft, Non Tender, Non-Distended, No Hepato-splenomegaly. Extremities: No clubbing, No cyanosis, No edema Skin: No rashes, No breakdown Neurological: Neuro grossly intact Vital Signs are stable. Hospital course: This is a 41 years old male patient presented to the emergency room because of worsening right leg swelling, erythema and pain in context of recent discharge from the hospital because of right leg cellulitis and he was found to have right leg cellulitis with abscess status post bedside incision and drainage #1 acute MSSA right leg cellulitis/abscess: Status post bedside incision and drainage that was done by ER physician on admission. Patient was treated with IV Unasyn and vancomycin. There was no evidence of sepsis or severe sepsis. Patient remained afebrile throughout admission. Staph aureus screen by PCR was positive but MRSA screen was negative. With IV antibiotic therapy, local erythema and swelling of the right leg improved. Blood and urine culture showed no growth. Wound culture revealed MSSA. Patient discharged home in a stable medical condition, discharged on Levaquin daily for 7 days, discharged on Bactroban topically 3 times daily for 7 days, recommended to follow-up with PCP in 1 week and follow-up with the wound care center in 3-5 days. #2 acute kidney injury: Probably secondary to acute infection. Treated with IV fluids and his kidney function returned back to normal. #3 chronically elevated LFT: This is chronic, unclear etiology. Patient denied any abdominal pain, denied right upper quadrant abdominal pain and it has been going on for couple of years. Recommend follow-up with PCP. #4 uncontrolled type 1 diabetes mellitus: Blood sugar has been fluctuating throughout admission. It goes from 140s up to 300s. Hemoglobin A1c is 10.9. Continued on Lantus insulin nightly and sliding scale, recommended to check blood sugar at least 4 times a day, follow-up with PCP. Patient discharged home in a stable medical condition, discharged on Levaquin for 7 days, and topical Bactroban, instructed and highly recommended to follow- up with the wound care center within 2-5 days, follow-up with PCP in 1 week. This note was generated with [employer] dictation software. It may contain incorrect words, spelling, and punctuation that were not noted in checking the note before signing. Discharge Activity: Return to Normal Activity, May not drive while taking narcotic pain medications. Weight Bearing Status: Weight bearing as tolerated Call your doctor if your incision/area has: Continuous Slow Oozing, Increased Pain/ Swelling, Increased Redness, Foul Smelling Discharge, Swelling at the incision site Call your doctor if you observe: Fever of 101 or Higher, Shortness of breath, Dizziness, Fainting spells, Chest pain, Increased palpitations (irregular heartbeat), Uncontrolled pain Home Medications: Medications to take at Discharge Insulin Aspart [Novolog Flexpen] 0 units SC TIDCM 12/28/12 Metoprolol Tartrate [Lopressor (beta mariama)] 50 mg PO BID 12/28/12 Omeprazole [Prilosec] 40 mg PO DAILY 12/28/12 Albuterol Inhaler [Ventolin Hfa] 2 puff INHALATION Q4H PRN PRN 08/19/14 Gabapentin [Neurontin] 300 mg PO TID 08/19/14 Budesonide/Formoterol 160/4.5 [Symbicort 160/4.5 Mcg Inhaler (SP)] 2 puff INHALATION BID 02/23/16 Montelukast Sodium [Singulair] 10 mg PO QHS 02/23/16 Hydrochlorothiazide 25 mg PO DAILY 06/21/16 Multivitamins,Ther W-Minerals [Multivitamin With Minerals] 1 tablet PO DAILY 06/21/16 Sucralfate 1 gm PO 4X/DAY 06/21/16 Pyridostigmine Mertens [Mestinon] 60 mg PO TID PRN PRN 12/03/16 Sertraline HCl [Zoloft] 100 mg PO DAILY 02/07/17 Furosemide [Lasix] 20 mg PO DAILY 11/23/17 Insulin Glargine,Hum.rec.anlog [Lantus] 14 unit SQ QHS 11/23/17 Levofloxacin [Levaquin] 750 mg PO DAILY #7 tab 11/26/17 Mupirocin [Bactroban] 1 applic TOPICAL TID #1 tube 11/26/17 traMADol [Ultram] 50 mg PO Q12H PRN PRN #10 tab 11/26/17 Following Prescrptions Were Given to Patient: traMADol [Ultram] 50 mg PO Q12H PRN PRN #10 tab PRN Reason: Right leg pain Levofloxacin [Levaquin] 750 mg PO DAILY #7 tab Mupirocin [Bactroban] 1 applic TOPICAL TID #1 tube Primary Care Physician: Jose Graham MD [Primary Care Provider] - Please follow up with your Primary Care Physician in: 1 week. Disposition: Home Minutes spent on discharge:: 32 Patient Condition:: Stable Medical Necessity - Tobacco Use Smoking Status: Current every day smoker - 1 ppd. Tobacco Use: Cigarettes Meaningful Use Info Meaningful Use Diagnoses (Choose all that apply): None applicable Code Visit Inpatient Dee Dee DELGADILLO M: [id number] Disch Hosp 11/26/17 1509 <Electronically signed by Ermelinda Ambrose MD> Date Ermelinda Ambrose MD Cosigner Signature (if applicable): Date CC: Jose Graham MD; Ermelinda Ambrose Signed BEDSIDE GLUCOSE Collected: 11/26/2017 Status: F Source: [place] 11:02 AM [facility] REPOSITORY TYPE CODE TESTS RESULT OUT OF REFERENCE UNITS RANGE LAB L501.080 70-110 mg/dL High BEDSIDE GLU 141 Result Comment: MANAGEMENT OF PATIENT CARE PER NURSING PROTOCOL Performed By: #### L501.080 #### [facility] Point of Care [address] [facility] [place] [address] DISCHARGE INSTRUCTION Observed: 11/26/2017 Status: F Source: [place] 9:04 AM [facility] REPOSITORY [facility] Medical Records Department [address] [place] [address] Instructions for Home/Discharge Instructions 11/26/1703 MR#: [id number] Acct: [id number] Name: AMARILYS KAISER Rep #: [id number] : 1975 42 From: Ermelinda Ambrose MD PCP: Jose Graham MD Status: ADM IN You will use the following diet at home:: Calorie/Carbohydrate Controlled (specify 1200, 1400, etc) - 1800 ana maria, Cardiac Your food should be the consistency of: Regular Discharge Activity: Return to Normal Activity, May not drive while taking narcotic pain medications. Weight Bearing Status: Weight bearing as tolerated Call your doctor if your incision/area has: Continuous Slow Oozing, Increased Pain/ Swelling, Increased Redness, Foul Smelling Discharge, Swelling at the incision site Call your doctor if you observe: Fever of 101 or Higher, Shortness of breath, Dizziness, Fainting spells, Chest pain, Increased palpitations (irregular heartbeat), Uncontrolled pain Additional Instructions: Follow-up with the wound care center this coming week. Allergies/Adverse Reactions: Allergies lisinopril Allergy (Verified 11/23/17 15:30) Angioedema losartan Allergy (Verified 11/23/17 15:30) Angioedema metoclopramide HCl [From Reglan] Allergy (Verified 11/23/17 15:30) Hives Medications to take at Discharge Insulin Aspart [Novolog Flexpen] 0 units SC TIDCM 12/28/12 Metoprolol Tartrate [Lopressor (beta mariama)] 50 mg PO BID 12/28/12 Omeprazole [Prilosec] 40 mg PO DAILY 12/28/12 Albuterol Inhaler [Ventolin Hfa] 2 puff INHALATION Q4H PRN PRN 08/19/14 Gabapentin [Neurontin] 300 mg PO TID 08/19/14 Budesonide/Formoterol 160/4.5 [Symbicort 160/4.5 Mcg Inhaler (SP)] 2 puff INHALATION BID 02/23/16 Montelukast Sodium [Singulair] 10 mg PO QHS 02/23/16 Hydrochlorothiazide 25 mg PO DAILY 06/21/16 Multivitamins,Ther W-Minerals [Multivitamin With Minerals] 1 tablet PO DAILY 06/21/16 Sucralfate 1 gm PO 4X/DAY 06/21/16 Pyridostigmine Mertens [Mestinon] 60 mg PO TID PRN PRN 12/03/16 Sertraline HCl [Zoloft] 100 mg PO DAILY 02/07/17 Furosemide [Lasix] 20 mg PO DAILY 11/23/17 Insulin Glargine,Hum.rec.anlog [Lantus] 14 unit SQ QHS 11/23/17 Levofloxacin [Levaquin] 750 mg PO DAILY #7 tab 11/26/17 Mupirocin [Bactroban] 1 applic TOPICAL TID #1 tube 11/26/17 traMADol [Ultram] 50 mg PO Q12H PRN PRN #10 tab 11/26/17 The following prescriptions were given: traMADol [Ultram] 50 mg PO Q12H PRN PRN #10 tab PRN Reason: Right leg pain Levofloxacin [Levaquin] 750 mg PO DAILY #7 tab Mupirocin [Bactroban] 1 applic TOPICAL TID #1 tube Primary Care Physician: Jose Grahma MD [Primary Care Provider] - Please follow up with your Primary Care Physician in: 1 week. Test Results: Test results from this visit will be discussed in further detail at your follow-up appointment, if applicable. 11/26/17 0904 <Electronically signed by Ermelinda Ambrose MD> Date Ermelinda Ambrose MD CC: Jose Graham MD BEDSIDE GLUCOSE Collected: 11/26/2017 Status: F Source: [place] 6:39 AM [facility] REPOSITORY TYPE CODE TESTS RESULT OUT OF REFERENCE UNITS RANGE LAB L501.080 70-110 mg/dL High BEDSIDE GLU 250 Result Comment: MANAGEMENT OF PATIENT CARE PER NURSING PROTOCOL Performed By: #### L501.080 #### [facility] Point of Care [address] [place] [address] BEDSIDE GLUCOSE Collected: 11/25/2017 Status: F Source: [place] 10:19 PM [facility] REPOSITORY TYPE CODE TESTS RESULT OUT OF REFERENCE UNITS RANGE LAB L501.080 70-110 mg/dL High BEDSIDE GLU 393 Result Comment: MANAGEMENT OF PATIENT CARE PER NURSING PROTOCOL Performed By: #### L501.080 #### [facility] Point of Care [address] [place] [address] BEDSIDE GLUCOSE Collected: 11/25/2017 Status: F Source: [place] 4:11 PM [facility] REPOSITORY TYPE CODE TESTS RESULT OUT OF REFERENCE UNITS RANGE LAB L501.080 70-110 mg/dL High BEDSIDE GLU 331 Result Comment: MANAGEMENT OF PATIENT CARE PER NURSING PROTOCOL Performed By: #### L501.080 #### [facility] Point of Care [address] [place] [address] BEDSIDE GLUCOSE Collected: 11/25/2017 Status: F Source: [place] 11:17 AM [facility] REPOSITORY TYPE CODE TESTS RESULT OUT OF REFERENCE UNITS RANGE LAB L501.080 70-110 mg/dL High BEDSIDE GLU 239 Result Comment: MANAGEMENT OF PATIENT CARE PER NURSING PROTOCOL Performed By: #### L501.080 #### [facility] Point of Care [address] [place] [address] BEDSIDE GLUCOSE Collected: 11/25/2017 Status: F Source: [place] 6:09 AM [facility] REPOSITORY TYPE CODE TESTS RESULT OUT OF REFERENCE UNITS RANGE LAB L501.080 70-110 mg/dL High BEDSIDE GLU 185 Result Comment: MANAGEMENT OF PATIENT CARE PER NURSING PROTOCOL Performed By: #### L501.080 #### [facility] Point of Care [address] [place] [address] BEDSIDE GLUCOSE Collected: 2017 Status: F Source: [place] 10:48 PM [facility] REPOSITORY TYPE CODE TESTS RESULT OUT OF REFERENCE UNITS RANGE LAB L501.080 70-110 mg/dL High BEDSIDE GLU 337 Result Comment: MANAGEMENT OF PATIENT CARE PER NURSING PROTOCOL Performed By: #### L501.080 #### [facility] Point of Care [address] [place] [address] BEDSIDE GLUCOSE Collected: 2017 Status: F Source: [place] 2:54 PM [facility] REPOSITORY TYPE CODE TESTS RESULT OUT OF REFERENCE UNITS RANGE LAB L501.080 70-110 mg/dL High BEDSIDE GLU 139 Result Comment: MANAGEMENT OF PATIENT CARE PER NURSING PROTOCOL Performed By: #### L501.080 #### [facility] Point of Care [address] [place] [address] BEDSIDE GLUCOSE Collected: 2017 Status: F Source: [place] 11:02 AM [facility] REPOSITORY TYPE CODE TESTS RESULT OUT OF REFERENCE UNITS RANGE LAB L501.080 70-110 mg/dL High BEDSIDE GLU 158 Result Comment: MANAGEMENT OF PATIENT CARE PER NURSING PROTOCOL Performed By: #### L501.080 #### [facility] Point of Care [address] [place] [address] BEDSIDE GLUCOSE Collected: 2017 Status: F Source: [place] 6:52 AM [facility] REPOSITORY TYPE CODE TESTS RESULT OUT OF REFERENCE UNITS RANGE LAB L501.080 70-110 mg/dL High BEDSIDE GLU 145 Result Comment: MANAGEMENT OF PATIENT CARE PER NURSING PROTOCOL Performed By: #### L501.080 #### [facility] Point of Care [address] [place] [address] CBC W/DIFF, AUTOMATED Collected: 2017 Status: F Source: [place] 6:00 AM [facility] REPOSITORY TYPE CODE TESTS RESULT OUT OF RANGE REFERENCE UNITS LAB L100.1000 4.4-11.0 K/mm3 Normal WBC 7.8 LAB L100.1200 4.6-6.2 M/mm3 Low RBC 3.39 LAB L100.1300 13.0-16.5 g/dl Low HGB 10.0 LAB L100.1400 40-54 % Low HCT 29.9 LAB L100.1500 80-94 fL Normal MCV 88.2 LAB L100.1600 27.0-32.0 pg Normal MCH 29.5 LAB L100.1700 32-36 g/gl Normal MCHC 33.4 LAB L100.1810 11.6-14.6 % Normal RDW CV 13.2 LAB L100.1820 35.1-43.9 fl Normal RDW SD 40.9 LAB L100.1900 150-450 K/mm3 Normal PLT 306 LAB L100.2000 6.2-12.0 fl Normal MPV 11.0 LAB L100.2100 47-70 % High NEUT% 70.7 LAB L100.2200 19-41 % Low LY% 12.6 LAB L100.2300 0-10 % High MONO% 12.1 LAB L100.2400 0-5 % Normal EO% 3.2 LAB L100.2500 0-1 % Normal BASO% 0.5 LAB L100.2550 0.0-0.9 % Normal IM GRAN % 0.900 Result Comment: IG% - Immature Granulocytes (promyelocytes, myelocytes and metamyelocytes) > 1% indicates that a LEFT SHIFT is Present. LAB L100.2620 2.0-7.7 X10 3/uL Normal Absolute Neut 5.5 LAB L100.2720 0.83-4.51 X10 3/ul Normal Absolute Lymph 0.99 Performed By: #### L100.0100 #### [facility] [address] [place], [address] COMPREHENSIVE METABOLIC Collected: 2017 Status: F Source: [place] PROFIL 6:00 AM [facility] REPOSITORY TYPE CODE TESTS RESULT OUT OF RANGE REFERENCE UNITS LAB L501.0100 74-106 mg/dL High GLU 148 Result Comment: Fasting Glucose result greater than or equal to 126 mg/dL suggests DIABETES MELLITUS per A.D.A. criteria. Please note revised GLUCOSE reference range effective 2017. LAB L501.1000 7-18 mg/dL Normal BUN 16 LAB L501.1100 0.70-1.30 mg/dL Normal CREAT,SERUM 1.09 Result Comment: The validity of the calculated GFR AND GFRAA in patients over 70 years has not been determined. Clinical correlation is essential. LAB L501.1110 >60 mL/min Normal EST GFR 79 Result Comment: Non- GFR Calc LAB L501.1115 >60 mL/min Normal EST GFR - AA 95 Result Comment: GFR Calc LAB L501.1255 ml/min Normal Estimated CRCL 78.36 LAB L501.1300 10-20 RATIO Normal BUN/CRE 14.7 LAB L501.1500 6.4-8. g/dL Low 2 T PROT 5.1 LAB L501.1800 3.2-5. g/dL Low 0 ALB 1.1 LAB L501.1950 2.2-4. g/dL Normal 2 GLOB 4.0 LAB L501.2000 0.9-2. RATIO Low 4 A/G 0.3 LAB L501.2200 8.5-10 mg/dL Low .1 CA 7.7 LAB L501.4100 15-37 U/L Normal AST 18 LAB L501.4305 45-117 U/L High ALK P 322 LAB L501.4405 16-61 U/L High ALT 77 LAB L501.4600 0.20-1 mg/dL Low .00 T BILI 0.10 LAB L501.5300 136-14 mmol/L Normal 5 NA 140 LAB L501.5600 3.5-5. mmol/L Normal 1 K 3.7 LAB L501.5900 98-107 mmol/L Normal CL 104 LAB L501.6100 21.0-3 mmol/L Normal 2.0 CO2 28.0 LAB L501.6200 5-15 Normal GAP 8 Performed By: #### L500.4050 #### [facility] [address] [place], [address] VITAMIN B12 Collected: 2017 Status: F Source: [place] 6:00 AM [facility] REPOSITORY TYPE CODE TESTS RESULT OUT OF RANGE REFERENCE UNITS LAB L503.0105 211-911 pg/mL Normal Vitamin B12 699 Performed By: #### L503.0105 #### [facility] [address] [facility] [place], [address] EMERGENCY DEPARTMENT Observed: 2017 Status: F Source: [place] SUMMARY 1:44 AM [facility] REPOSITORY [facility] Medical Records Department [address] [place] [address] Emergency Department Summary 11/23/17 1635 MR#: [id number] Acct: [id number] Name: AMARILYS KAISER Rep #: [id number] : 1975 41 From: Cecelia Philippe MD PCP: Jose Graham MD Status: ADM IN - ER Visit Summary Date of Service: 11/23/17 Chief Complaint: Right lower extremity infection History of Present Illness: The patient is a 41 M with history of type 1 diabetes and recent hospitalization for right lower extremity infection who presents for worsening of the infection at home. Patient states on November 05 he fell in the [place] and injured his right whitt. He developed an infection at that site and was hospitalized this past weekend, receiving IV antibiotics. He states he was discharged 2 days ago on Augmentin and the leg looked much better at the time. The redness had resolved and he was not having pain. He is taking all doses of Augmentin since discharge without missing any. Yesterday the leg began becoming red again, and today it is much more erythematous and painful. Patient also has a low-grade fever at home. Patient is feeling nauseated. He denies any other complaints at this time. Physical Examination: Vital signs: afebrile, heart rate 95, hypertensive at 169/109, no hypoxia on room air General: well nourished, well developed, in no distress, peers uncomfortable Skin: warm, dry HEENT: normocephalic and atraumatic; PERRL, EOMI, moist mucous membranes Cardiovascular: regular rate and rhythm without murmurs, no peripheral edema, 2+ pulses all distal extremities Respiratory: No increased work of breathing, lungs are clear to auscultation bilaterally, no rales, rhonchi or wheezing Abdominal: Abdomen is soft, nontender with normoactive bowel sounds, no guarding or rebound, no masses MSK: Moves all extremities, no deformities, normal strength, pitting edema to the right foot, erythema on the anterior tibia distal to the right knee and extending to the ankle, 5 x 3 cm area of induration and fluctuance just distal to the patella, no calf tenderness Neuro: Awake and alert, oriented 4. No facial droop, sensation and motor function intact and symmetric Test Results: Abnormal Lab Results WBC RBC Hgb Hct WBC RBC Hgb Hct MCV MCH MCHC RDW RDW Differential Plt Count MPV Immature Gran % (Auto) Clinical Impression(s) from Imaging Studies Tibia/Fibula X-Ray 11/23/17 16:34 IMPRESSION: Normal x-ray examination of the tibia and fibula. Electronically Signed: Francesco Pride MD at 18:09 EDT Tel , Service support , Chest X-Ray 11/23/17 16:45 IMPRESSION: 1. Trace left pleural effusion versus chronic fibrosis. 2. Minimal fibrotic changes in the lung bases. Electronically Signed: Francesco Pride MD at 18:08 EDT Tel , Service support , Emergency Department Course and Treatment: Patient presents with worsening of a right lower leg infection which was recently treated and improving with inpatient management. Patient has been compliant with his antibiotics. His examination is concerning for an abscess over the large area of cellulitis. Patient had no leukocytosis. Lactate was normal at 0.7. He was afebrile but was borderline tachycardic at 95. Because of the worsening of patient's cellulitis, it may be secondary to the abscess formation and inability of the antibiotics to effectively treat this. Thus incision and drainage was performed. Verbal consent was obtained. Patient's leg was cleansed with Shur-Clens. 1% lidocaine was used to locally anesthetize the area of maximum fluctuance. A 1 cm incision was made with an 11 blade over the area of maximum fluctuance with return of copious amounts of homogenous pus. Cultures were obtained. The abscess cavity was drained and loculations were broken with curved hemostats. He tolerated the procedure well. Patient was started on Unasyn and Zosyn. He was managed with morphine. An x-ray of the tibia and fibula had been obtained to look for any subcutaneous gas or signs of deep space infection that might be concerning for necrotizing fasciitis or osteomyelitis. X-ray was unremarkable. Given patient's failure on outpatient treatment, worsening of the cellulitis, and the development of the abscess, she will benefit from further inpatient management and IV antibiotics for his cellulitis, especially given that he is diabetic. He was discussed with Dr. Huynh and admitted for further management. Treatment Plan: [] Disposition: [] Impression: Right lower extremity cellulitis with abscess, failed outpatient therapy, incision and drainage This note was generated with [employer] dictation software. It may contain incorrect words, spelling, and punctuation that were not noted in review of the chart prior to signing ED Disposition - Plan for ED Patient: Disposition: Acute Care Hospital [facility] Chief Complaint: Lower Extremity Injury What to do if you have Problems For any increased pain, shortness of breath, bleeding, nausea or vomiting, chest pain, or any unexpected problems, contact your Primary Care Provider. Call [facility] ([phone]) or report to the closest Emergency Room. Call 911 if necessary. 11/24/17 0144 <Electronically signed by Cecelia Philippe MD> Date Cecelia Philippe MD Cosigner Signature (If Indicated): Date CC: Jose Graham MD BEDSIDE GLUCOSE Collected: 11/23/2017 Status: F Source: [place] 9:04 PM [facility] REPOSITORY TYPE CODE TESTS RESULT OUT OF REFERENCE UNITS RANGE LAB L501.080 70-110 mg/dL High BEDSIDE GLU 227 Result Comment: MANAGEMENT OF PATIENT CARE PER NURSING PROTOCOL Performed By: #### L501.080 #### [facility] Point of Care [address] [place] [address] HISTORY AND PHYSICAL Observed: 11/23/2017 Status: F Source: [place] EXAM 8:23 PM [facility] REPOSITORY [facility] Medical Records Department [address] [place] [address] History and Physical 11/23/171941 MR#: [id number] Acct: [id number] Name: AMARILYS KAISER Rep #: [id number] : 1975 41 From: Heidi Huynh PCP: Jose Graham MD Status: DEP ER Y Location: ED Problem List (1) Cellulitis of right leg Status: Acute (2) Diabetes type I Status: Chronic Qualifiers: Diabetes mellitus complication status: with unspecified complications Qualified Code(s): E10.8 - Type 1 diabetes mellitus with unspecified complications (3) HTN (hypertension) Status: Chronic Qualifiers: Hypertension type: essential hypertension Qualified Code(s): I10 - Essential (primary) hypertension (4) IBS (irritable bowel syndrome) Status: Chronic Qualifiers: Irritable bowel syndrome type: unspecified Qualified Code(s): K58.9 - Irritable bowel syndrome without diarrhea (5) Myasthenia gravis Status: Chronic History of Present Illness Date of Admission: 11/23/17 Chief Complaint: RLE infection The patient is a 41 y/o M w/ PMHx: Diabetes mellitus type I, HTN, HLD, Chronic COPD/Asthma, Tobacco use, Myasthenia Gravis s/p thymectomy, IBS, recently admitted 11/19/17 and discharged on 11/21/17 with RLE extremity cellulitis whitt discharged on augmentin regimen for an additional 7 days of treatment, improved upon discharge initially but has been worsened since Monday with onset redness, edema and discomfort w/ some development of fluctuance with ED I+D with copious purulent output. In the ED work-up included T 99, heart rate 95, BP 169/109, respiratory rate 18, 99% on room air, BC with WBC 8.9, hemoglobin 11.6, platelet 369 without market left shift, coags unremarkable aside PTT 37.4, CMP notable for BUN/creatinine 17/1.31 (baseline creatinine 0.8-1), AST/ALT 34/116 (noted intermittent enzyme elevations prior), Alk phos 417, UA without evidence UTI, plain film R Tib/Fib unremarkable, CXR w/ trace L pleural effusion versus chronic fibrosis, minimal fibrotic changes in the lung bases. In the ED patient administered Zofran, morphine, lidocaine, Tylenol, LR, Unasyn. Wound Cx obtained s/p I+D and discussed with ED physician with Wound MRSA PCR addition. Past Medical History Past Medical History (Chronic Problems): Chronic Problems IBS (irritable bowel syndrome) (Chronic) HTN (hypertension) (Chronic) Diabetes type I (Chronic) Myasthenia gravis (Chronic) Diabetes mellitus (Chronic) Allergies lisinopril Allergy (Verified 11/23/17 15:30) Angioedema losartan Allergy (Verified 11/23/17 15:30) Angioedema metoclopramide HCl [From Reglan] Allergy (Verified 11/23/17 15:30) Hives Home Medications: Ambulatory Orders Medication Instructions Recorded Insulin Aspart [Novolog Flexpen] 0 units SC TIDCM 12/28/12 Metoprolol Tartrate [Lopressor 50 mg PO BID 12/28/12 (beta mariama)] Omeprazole [Prilosec] 40 mg PO DAILY 12/28/12 Surgical History: - - Thymectomy, cholecystectomy, teeth resection. Psychiatric History: No pertinent psych hx Lives: With Family - Lives with his young daughter. Smoking Status: Current every day smoker - 1 ppd. Tobacco Use: Cigarettes Alcohol: None Drugs: Marijuana - *Family History Maternal History Items: - - Crohn's disease and thyroid disease. Paternal History Items: Cancer, Hypertension, - Review of Systems Constitutional: Reports: Malaise, Weakness, Fatigue. Denies: Chills, Fever, Weight Change HEENT: Denies: Head Aches, Sinus Congestion, Sinus Drainage Cardiovascular: Denies: Chest Pain, Palpitations Respiratory: Denies: Cough, Shortness of breath at rest, Sputum production Gastrointestinal: Reports: Constipation, Diarrhea. Denies: Abdominal Pain, Nausea, Vomiting Genitourinary: Denies: Dysuria Musculoskeletal: Denies: Joint Pain, Joint Tenderness Skin: Reports: Skin Changes, Wounds. Denies: Rash Neurological: Denies: Numbness, Tingling, Focal weakness Psychiatric: Denies: Anxiety, Depression, Homicidal Ideations, Suicidal Ideations Hematologic/ Lymphatic: Denies: Easy Bruising, Easy Bleeding VTE Information - Inpt Only VTE Present on Admission: No VTE Mechan Device Prophylaxis: SCD's VTE Pharm Prophylaxis ordered?: Yes Subjective: Seated upright in the ED bed, fatigued, recent I+D w/ pain to RLE. Objective: Physical Examination: General: awake, alert, oriented x 3 and cooperative, seated upright in the ED bed in no apparent distress but notes discomfort ongoing to RLE. Skin: normal color, turgor, no icterus, cyanosis except RLE w/ erythema extending from ankle to proximal whitt, edematous, tender to palpation, warm, status post I AND D with wick in place with noted purulent discharge with I AND D. HEENT: AT/NC, EOMI, PERRLA, mildly dry MM, no carotid bruits or JVD noted. Lungs: Mildly diminished BS BL bases, moderate effort, no rales, ronchi or wheezing. Heart: Regular rate and rhythm; no gallop, rub audible. Abdomen: soft, thin habitus, NTTP, ND, normal BS, no HSM. Extremities: no cyanosis, clubbing, see skin. Neurological: patient awake, alert, oriented x 3; cognitive function intact; pupils equally reactive to light and accomodation; cranial nerves II-XII grossly normal, moving all 4 extremities, no focal deficits, strength mildly globally decreased secondary to acute presentation. Psychiatric: affect appears normal, no acute evidence of depressive or anxiety feelings. - Physical Exam Vital Signs Temp Pulse Resp BP Pulse Ox 98.5 F 88 24 H 187/116 H 96 11/23/17 17:51 11/23/17 19:11 11/23/17 19:11 11/23/17 19:11 11/23/17 19:11 Oxygen Delivery Method Room Air Weight: 125 lb Body Mass Index (BMI) 20.1 Finger Stick Blood Glucose 406 Laboratory Tests Past 24 Hrs WBC 8.9 Assessment/Plan All Active Problems Cellulitis of right leg (Acute) Trip and fall (Acute) Diarrhea (Resolved) Hyperglycemia (Acute) Intractable vomiting with nausea (Resolved) Transverse colitis (Resolved) Nausea (Resolved) The patient is a 41 y/o M w/ PMHx: Diabetes mellitus type I, HTN, HLD, Chronic COPD/Asthma, Tobacco use, Myasthenia Gravis s/p thymectomy, IBS, recently admitted 11/19/17 and discharged on 11/21/17 with RLE extremity cellulitis whitt discharged on augmentin regimen for an additional 7 days of treatment, improved upon discharge initially but has been worsened since Monday with onset redness, edema and discomfort w/ some development of fluctuance with ED I+D with copious purulent output. (1) RLE Extremity Cellulitis w/ Abscess: Will admit to [facility], maintain on IV vanc and zosyn, pending Wound Cx and added Wound MRSA PCR, plan repeat CBC in AM, continue affected extremity elevation above heart when seated and in bed, monitor erythema outline with VS checks. (2) Acute kidney injury: Secondary to acute infection, suspected mild decreased oral intake. Admission BUN/Cr 17/1.31, prior baseline creatinine noted to be 0.8-1.0. Will hydrate, hold nephrotoxic medications and repeat chemistry in AM. (3) Elevated Liver Enzymes: Noted prior intermittent elevations, will hydrate, repeat CMP in AM given acute presentation #1. (4) Chronic Normocytic Anemia: Unclear etiology, noted ongoing, admission Hgb 11.6, stable, will obtain Fe panel, ferritin, vitamin B12 and folic acid level. (5) Diabetes mellitus type I: Continue home insulin regimen, ADA diet, accu checks w/ ISS. (6) Chronic Asthma/COPD: ATC duonebs, PRN albuterol, HOB, IS parameters. (7) Tobacco Abuse: Encouraged cessation, inpatient consultation per RT, NR if desired. (8) Myasthenia Gravis: s/p thymectomy secondary to severity and difficulty tolerating steroids with DM. (9) GERD: PPI. (10) DVT Prophylaxis: SCDs, lovenox. Code Visit Inpatient E AND M: 22245 Init Hosp L3 11/23/172022 <Electronically signed by Heidi Huynh > Date Heidi Huynh Cosigner Signature: Date (if applicable) CC: Heidi Huynh; Jose Graham MD Signed MRSA WOUND DNA BY Collected: 11/23/2017 Status: F Source: [place] PCR 7:40 PM [facility] REPOSITORY Order Comment: Order Date: 11/23/17 TYPE CODE TESTS RESULT OUT OF RANGE REFERENCE UNITS LAB L8200.1100 Negative Normal MRSA Negative RESULT LAB L8200.1150 Negative High SA RESULT POSITIVE Performed By: #### L8200.1075 #### [facility] [address] [place], [address] Observed: 11/23/2017 Status: F Source: [place] CULTURE, WOUND 7:40 PM [facility] REPOSITORY Order Date: 11/23/17 Gram Stain Gram Stain 2+ Gram positive cocci Rare White Blood Cells Wound Culture ORGANISM 1: Staphylococcus aureus Amount Growth 2+ Staphylococcus aureus: REACTION Benzylpenicillin NF <=0.03 R Cefoxitin *NF - Clindamycin $$ <=0.25 S Inducable Clindamycin Resistan - Erythromycin $ <=0.25 S Gentamicin $ <=0.5 S Levofloxacin $ <=0.12 S Linezolid $$$$ 2 S Moxifloxicin *NF <=0.25 S Oxacillin NF <=0.25 S Tigecycline $$$$ <=0.12 S Rifampin $$ <=0.5 S Tetracycline NF <=1 S Trimethoprim/Sulfametho $ <=10 S Vancomycin $ <=0.5 S (NF) indicates non-formulary drug at [facility]. Approval by Infectious Disease Specialist required before non-formulary drugs may be ordered and/or dispensed. * CLSI guidelines does not recommend testing of cephalosporins. This interpretation is deduced from Beta-lactam/penicillin results. Performed By: #### M100.1400 #### [facility] [address], [place], [address] Observed: 11/23/2017 Status: F Source: [place] CULTURE, BLOOD (WB) 5:08 PM [facility] REPOSITORY BC No growth in 5 days. Performed By: #### M200.1000 #### [facility] [address] [place], [address] CBC W/DIFF, AUTOMATED Collected: 11/23/2017 Status: F Source: [place] 5:00 PM [facility] REPOSITORY TYPE CODE TESTS RESULT OUT OF RANGE REFERENCE UNITS LAB L100.1000 4.4-11.0 K/mm3 Normal WBC 8.9 LAB L100.1200 4.6-6.2 M/mm3 Low RBC 4.00 LAB L100.1300 13.0-16.5 g/dl Low HGB 11.6 LAB L100.1400 40-54 % Low HCT 35.0 LAB L100.1500 80-94 fL Normal MCV 87.5 LAB L100.1600 27.0-32.0 pg Normal MCH 29.0 LAB L100.1700 32-36 g/gl Normal MCHC 33.1 LAB L100.1810 11.6-14.6 % Normal RDW CV 13.6 LAB L100.1820 35.1-43.9 fl Normal RDW SD 43.5 LAB L100.1900 150-450 K/mm3 Normal PLT 369 LAB L100.2000 6.2-12.0 fl Normal MPV 10.8 LAB L100.2100 47-70 % High NEUT% 76.9 LAB L100.2200 19-41 % Low LY% 11.5 LAB L100.2300 0-10 % Normal MONO% 7.8 LAB L100.2400 0-5 % Normal EO% 3.3 LAB L100.2500 0-1 % Normal BASO% 0.2 LAB L100.2550 0.0-0.9 % Normal IM GRAN % 0.300 Result Comment: IG% - Immature Granulocytes (promyelocytes, myelocytes and metamyelocytes) > 1% indicates that a LEFT SHIFT is Present. LAB L100.2620 2.0-7.7 X10 3/uL Normal Absolute Neut 6.8 LAB L100.2720 0.83-4.51 X10 3/ul Normal Absolute Lymph 1.02 Performed By: #### L100.0100 #### [facility] [address] [place], [address] PROTHROMBIN TIME W/INR Collected: 11/23/2017 Status: F Source: [place] 5:00 PM [facility] REPOSITORY TYPE CODE TESTS RESULT OUT OF RANGE REFERENCE UNITS LAB L300.4150 11.7-14.9 SECONDS Normal PROTIME 12.6 LAB L300.4200 Normal INR 0.9 Performed By: #### L300.3900, L300.4310 #### [facility] [address] [place], [address] PARTIAL THROMBOPLAST Collected: 11/23/2017 Status: F Source: [facility] 5:00 PM [facility] REPOSITORY TYPE CODE TESTS RESULT OUT OF REFERENCE UNITS RANGE LAB L300.4310 24.1-36.2 Seconds High PTT 37.4 Performed By: #### L300.3900, L300.4310 #### [facility] [address] [place], [address] COMPREHENSIVE METABOLIC Collected: 11/23/2017 Status: F Source: [place] PROFIL 5:00 PM [facility] REPOSITORY TYPE CODE TESTS RESULT OUT OF RANGE REFERENCE UNITS LAB L501.0100 74-106 mg/dL High GLU 282 Result Comment: Glucose result greater than or equal to 200 mg/dL suggests DIABETES MELLITUS per A.D.A. criteria. Please note revised GLUCOSE reference range effective 2017. LAB L501.1000 7-18 mg/dL Normal BUN 17 LAB L501.1100 0.70-1.30 mg/dL High CREAT,SERUM 1.31 Result Comment: The validity of the calculated GFR AND GFRAA in patients over 70 years has not been determined. Clinical correlation is essential. LAB L501.1110 >60 mL/min Normal EST GFR 64 Result Comment: Non- GFR Calc LAB L501.1115 >60 mL/min Normal EST GFR - AA 77 Result Comment: GFR Calc LAB L501.1255 ml/min Normal Estimated CRCL 58.91 LAB L501.1300 10-20 RATIO Normal BUN/CRE 13.0 LAB L501.1500 6.4-8. g/dL Normal 2 T PROT 6.8 LAB L501.1800 3.2-5. g/dL Low 0 ALB 1.5 LAB L501.1950 2.2-4. g/dL High 2 GLOB 5.3 LAB L501.2000 0.9-2. RATIO Low 4 A/G 0.3 LAB L501.2200 8.5-10 mg/dL Low .1 CA 8.4 LAB L501.4100 15-37 U/L Normal AST 34 LAB L501.4305 45-117 U/L High ALK P 417 LAB L501.4405 16-61 U/L High ALT 116 LAB L501.4600 0.20-1 mg/dL Normal .00 T BILI 0.20 LAB L501.5300 136-14 mmol/L Normal 5 NA 136 LAB L501.5600 3.5-5. mmol/L Normal 1 K 3.7 LAB L501.5900 98-107 mmol/L Normal CL 99 LAB L501.6100 21.0-3 mmol/L Normal 2.0 CO2 26.0 LAB L501.6200 5-15 Normal GAP 11 Performed By: #### L500.4050 #### [facility] [address] [place], [place], [id number] LACTIC ACID Collected: 11/23/2017 Status: F Source: [place] 5:00 PM [facility] REPOSITORY Order Comment: Yes/No query for Sepsis Lactate Rule Y TYPE CODE TESTS RESULT OUT OF RANGE REFERENCE UNITS LAB L503.6005 0.4-2.0 mmol/L Normal LACTIC ACID 0.7 Performed By: #### L503.6005 #### [facility] [address] [place], [place], [address] MAGNESIUM Collected: 11/23/2017 Status: F Source: [place] 5:00 PM [facility] REPOSITORY TYPE CODE TESTS RESULT OUT OF RANGE REFERENCE UNITS LAB L501.5200 1.6-2.6 mg/dL Normal MG 2.1 Performed By: #### L501.5200, L503.6030, L503.6550, L506.0250 #### [facility] [address] [place], [place], [id number] IRON+IRON BINDING Collected: 11/23/2017 Status: F Source: [facility] 5:00 PM [facility] REPOSITORY TYPE CODE TESTS RESULT OUT OF RANGE REFERENCE UNITS LAB L503.6075 250-450 ug/dL Low TIBC 175 LAB L503.6150 65-175 ug/dL Low IRON 30 LAB L503.6250 15.0-55.0 % IRON Normal SATURATION 17.1 Performed By: #### L501.5200, L503.6030, L503.6550, L506.0250 #### [facility] [address] [place], [place], [id number] FERRITIN Collected: 11/23/2017 Status: F Source: [place] 5:00 PM [facility] REPOSITORY TYPE CODE TESTS RESULT OUT OF RANGE REFERENCE UNITS LAB L503.6550 26-388 ng/mL Normal FERRITIN 339 Performed By: #### L501.5200, L503.6030, L503.6550, L506.0250 #### [facility] [address] [place], [place], [id number] FOLATES, (FOLIC ACID) Collected: 11/23/2017 Status: F Source: [place] 5:00 PM [facility] REPOSITORY TYPE CODE TESTS RESULT OUT OF RANGE REFERENCE UNITS LAB L506.0250 3.1-55.4 ng/mL Normal FOLATES 30.70 Performed By: #### L501.5200, L503.6030, L503.6550, L506.0250 #### [facility] [address] [place], [place], [id number] HEMOGLOBIN A1C Collected: 11/23/2017 Status: F Source: [place] 5:00 PM [facility] REPOSITORY TYPE CODE TESTS RESULT OUT OF RANGE REFERENCE UNITS LAB L501.9985 4.2-6.3 % High HGB A1C 10.9 Performed By: #### L501.9985 #### [facility] [address], [address] Observed: 11/23/2017 Status: F Source: [place] CULTURE, BLOOD (WB) 5:00 PM [facility] REPOSITORY BC No growth in 5 days. Performed By: #### M200.1000 #### [facility] [address] [place], [address] URINALYSIS, COMPLETE Collected: 11/23/2017 Status: F Source: [place] 4:45 PM [facility] REPOSITORY Order Comment: Order Date: 11/23/17 How was Urine Obtained? FIRE CONTROL TECHNICIAN B TO SPECIFY TYPE CODE TESTS RESULT OUT OF REFERENCE UNITS RANGE LAB L400.3000 Yellow COLOR Normal Yellow LAB L400.3050 Clear CLARITY Normal Sl. Cloudy LAB L400.3200 Normal mg/dl GLUCOSE, UR High 100 LAB L400.3300 Negative mg/dL BILIRUBIN Normal URINE Negative LAB L400.3400 Negative mg/dl KETONE UR High 5 LAB L400.3465 1.002-1.030 SP.GR. Normal DIPSTX 1.010 LAB L400.3550 5.0 - 8.0 pH UR Normal 7.0 LAB L400.3600 Negative mg/dl PROT DIPSTX High 500 LAB L400.3700 Normal mg/dl UROBILI Normal Normal LAB L400.3750 Negative NITRITE UR Normal Negative LAB L400.3780 Negative /ul OCCULT High BLOOD-UR 25 LAB L400.3800 Negative /ul LEUK Normal ESTERASE Negative LAB L400.4050 0-5 /hpf WBC Normal 0-5 SEEN LAB L400.4100 0-5 /hpf RBC-UA Normal 0-5 SEEN LAB L400.4150 0-5 /hpf SQUAM EPI Normal 0 SEEN LAB L400.4300 None Seen /hpf BACTERIA Normal 0 SEEN LAB L400.4350 <or=2+ /hpf MUCUS, Normal URINE 0 SEEN LAB L400.4200 0-5 /hpf Normal TRANSITIONAL EP 0-5 SEEN LAB L400.4400 0-5 /lpf HYALINE Normal CAST 0-5 SEEN Performed By: #### L400.0001 #### [facility] [address] [place], [address] Observed: 11/23/2017 Status: F Source: [place] CULTURE, URINE 4:45 PM [facility] REPOSITORY Order Date: 11/23/17 Urine Culture Culture exhibits no growth. Performed By: #### M100.0650 #### [facility] [address] [place], [address] CHEST 1 VIEW Observed: 11/23/2017 Status: F Source: [place] (PORTABLE) 4:35 PM [facility] REPOSITORY [facility] Imaging Services [address] [place] [address] Chest 1 View (Portable) MR#: [id number] Acct: [id number] Name: AMARILYS KAISER Rep #: [id number] : 1975 M 41 From: Francesco Pride MD PCP: Jose Graham MD Status: REG ER Study: Chest 1 View (Portable) Date of Exam: 11/23/17 Exam# [id number] Ordering Dr: Cecelia Philippe MD STUDY: X-RAY CHEST REASON FOR EXAM: Male, 41 years old. Right lower extremity infection TECHNIQUE: Portable chest. COMPARISON: 01/14/2016. FINDINGS: There is mild interstitial fibrosis in the lung bases. The lung howard are otherwise clear. There is blunting of the left costophrenic angle consistent with trace pleural effusion versus chronic scarring. This is a new finding compared to the prior study. Normal size heart. Normal mediastinum and nathaniel. Normal visualized pulmonary arteries. Normal visualized aortic arch and descending thoracic aorta. Normal visualized thoracic spine. Normal visualized ribs, clavicles, and shoulders. There is no demonstrated abnormality of the visualized soft tissue structures of the upper abdomen. RAD/Chest 1 View (Portable) IMPRESSION: 1. Trace left pleural effusion versus chronic fibrosis. 2. Minimal fibrotic changes in the lung bases. Electronically Signed: Francesco Pride MD at 18:08 EDT Tel , Service support , CC: Jose Graham MD; Cecelia Philippe MD Sales Producer: Signed TIBIA AND FIBULA Observed: 11/23/2017 Status: F Source: [place] 2 VIEWS 4:35 PM [facility] REPOSITORY [facility] Imaging Services [address] [place] [address] Tibia AND Fibula 2 Views MR#: [id number] Acct: [id number] Name: AMARILYS KAISER Rep #: [id number] : 1975 M 41 From: Francesco Pride MD PCP: Jose Graham MD Status: REG ER Study: Tibia AND Fibula 2 Views Date of Exam: 11/23/17 Exam# [id number] Ordering Dr: Cecelia Philippe MD STUDY: X-RAY - RIGHT TIBIA AND FIBULA REASON FOR EXAM: Male, 41 years old. Right lower extremity infection. TECHNIQUE: 2 view(s) of the tibia and fibula were obtained. COMPARISON: None. FINDINGS: Normal visualized tibia. Normal visualized fibula. The soft tissue structures are unremarkable. RAD/Tibia AND Fibula 2 Views IMPRESSION: Normal x-ray examination of the tibia and fibula. Electronically Signed: Francesco Pride MD at 18:09 EDT Tel , Service support , CC: Jose Graham MD; Cecelia Philippe MD Sales Producer: Signed DISCHARGE SUMMARY Observed: 11/21/2017 Status: F Source: [place] 12:06 PM [facility] REPOSITORY [facility] Medical Records Department [address] [place] [address] Discharge Summary 11/21/17 1205 MR#: [id number] Acct: [id number] Name: AMARILYS KAISER Rep #: [id number] : 1975 41 From: Van Ga MD PCP: Jose Graham MD Status: DIS IN Y Location: MS3 [id number] Discharge Date and Diagnosis Date of Admission: 11/19/17 Date of Discharge: 11/21/17 - Primary Discharge Diagnosis Right lower extremity cellulitis - Secondary Discharge Diagnosis Chronic Problems IBS (irritable bowel syndrome) (Chronic) HTN (hypertension) (Chronic) Diabetes type I (Chronic) Myasthenia gravis (Chronic) Diabetes mellitus (Chronic) Hospital Course and Treatment Consultations 11/20/17 06:10 Consult: Onc/Wound/dealmaker Routine Comment: wound with cellulitis to right whitt Summary of Care Provided: Patient is a 41-year-old gentleman presenting with right lower extremity warmth with erythema and assessment of cellulitis made admitted to regular nursing floor for further management 1. Right lower extremity cellulitis with an open wound over the right knee: Admitted to regular nursing floor started on Unasyn and vancomycin. Patient was discharged home on Augmentin 2. Healing right knee wound; wound care nurse consulted 3. Diabetes mellitus type 1 with complications including hypo-and hyperglycemia. Patient is on long-acting insulin in addition to pre-meal insulin held this morning as a result of patient being hypoglycemic; Patient insulin regimen adjusted on discharge 4. Hyponatremia secondary to pseudohyponatremia from patient's hypoglycemia 5. History of myasthenia gravis 6. Hypertension-blood pressure controlled, home medications continued with dose adjustment as needed 7. Irritable syndrome 8. DVT prophylaxis SC enoxaparin Discharge Diet: 1999 Calorie Control Diet Discharge Activity: Return to Normal Activity Home Medications: Medications to take at Discharge Insulin Aspart [Novolog Flexpen] 0 units SC TIDCM 12/28/12 Metoprolol Tartrate [Lopressor (beta mariama)] 50 mg PO BID 12/28/12 Omeprazole [Prilosec] 40 mg PO DAILY 12/28/12 Albuterol Inhaler [Ventolin Hfa] 2 puff INHALATION Q4H PRN PRN 08/19/14 Gabapentin [Neurontin] 300 mg PO TID 08/19/14 Budesonide/Formoterol 160/4.5 [Symbicort 160/4.5 Mcg Inhaler (SP)] 2 puff INHALATION BID 02/23/16 Montelukast Sodium [Singulair] 10 mg PO QHS 02/23/16 Hydrochlorothiazide 25 mg PO DAILY 06/21/16 Multivitamins,Ther W-Minerals [Multivitamin With Minerals] 1 tablet PO DAILY 06/21/16 Sucralfate 1 gm PO 4X/DAY 06/21/16 Pyridostigmine Mertens [Mestinon] 60 mg PO TID PRN PRN 12/03/16 Sertraline HCl [Zoloft] 100 mg PO DAILY 02/07/17 traMADol [Ultram] 50 mg PO Q6H PRN PRN #20 tablet 02/09/17 Amox/Clavulanate Tablet [Augmentin Tablet] 500 mg PO Q12H #14 tab 11/21/17 Insulin Glargine,Hum.rec.anlog [Lantus] 20 unit SQ QHS #0 11/21/17 Following Prescrptions Were Given to Patient: Amox/Clavulanate Tablet [Augmentin Tablet] 500 mg PO Q12H #14 tab Primary Care Physician: Jose Graham MD [Primary Care Provider] - Please follow up with your Primary Care Physician in: [place] 3- 5 DAYS Please Follow Up With: Jose Graham MD Disposition: Home Minutes spent on discharge:: 35 Patient Condition:: Stable Medical Necessity - Tobacco Use Smoking Status: Current every day smoker Meaningful Use Info Meaningful Use Diagnoses (Choose all that apply): None applicable Code Visit Inpatient E AND M: 35093 Disch Hosp 11/21/17 1206 <Electronically signed by Van Ga MD> Date Van Ga MD Cosigner Signature (if applicable): Date CC: Jose Graham MD; Van Ga MD Signed DISCHARGE INSTRUCTION Observed: 11/21/2017 Status: F Source: [place] 10:00 AM [facility] REPOSITORY [facility] Medical Records Department [address] [place] [address] Instructions for Home/Discharge Instructions 11/21/17 0959 MR#: [id number] Acct: [id number] Name: AMARILYS KAISER Rep #: [id number] : 1975 41 From: Van Ga MD PCP: Jose Graham MD Status: ADM IN - Discharge Diagnoses Current Active Problems: Current Active and Chronic Problems Cellulitis of right leg (Acute) Trip and fall (Acute) On November 05, 2017 You will use the following diet at home:: Calorie/Carbohydrate Controlled (specify 1200, 1400, etc) - 1999 Allergies/Adverse Reactions: Allergies lisinopril Allergy (Verified 11/20/17 00:12) Angioedema metoclopramide HCl [From Reglan] Allergy (Verified 11/19/17 20:07) Hives Medications to take at Discharge Insulin Aspart [Novolog Flexpen] 0 units SC TIDCM 12/28/12 Metoprolol Tartrate [Lopressor (beta mariama)] 50 mg PO BID 12/28/12 Omeprazole [Prilosec] 40 mg PO DAILY 12/28/12 Albuterol Inhaler [Ventolin Hfa] 2 puff INHALATION Q4H PRN PRN 08/19/14 Gabapentin [Neurontin] 300 mg PO TID 08/19/14 Budesonide/Formoterol 160/4.5 [Symbicort 160/4.5 Mcg Inhaler (SP)] 2 puff INHALATION BID 02/23/16 Montelukast Sodium [Singulair] 10 mg PO QHS 02/23/16 Hydrochlorothiazide 25 mg PO DAILY 06/21/16 Multivitamins,Ther W-Minerals [Multivitamin With Minerals] 1 tablet PO DAILY 06/21/16 Sucralfate 1 gm PO 4X/DAY 06/21/16 Pyridostigmine Mertens [Mestinon] 60 mg PO TID PRN PRN 12/03/16 Sertraline HCl [Zoloft] 100 mg PO DAILY 02/07/17 traMADol [Ultram] 50 mg PO Q6H PRN PRN #20 tablet 02/09/17 Amox/Clavulanate Tablet [Augmentin Tablet] 500 mg PO Q12H #14 tab 11/21/17 Insulin Glargine,Hum.rec.anlog [Lantus] 20 unit SQ QHS #0 11/21/17 The following prescriptions were given: Amox/Clavulanate Tablet [Augmentin Tablet] 500 mg PO Q12H #14 tab Primary Care Physician: Jose Graham MD [Primary Care Provider] - Please follow up with your Primary Care Physician in: IN 3- 5 DAYS Test Results: Test results from this visit will be discussed in further detail at your follow-up appointment, if applicable. Proposed Discharge Date: 11/21/17 11/21/17 1000 <Electronically signed by Van Ga MD> Date Van Ga MD CC: Jose Graham MD BEDSIDE GLUCOSE Collected: 11/21/2017 Status: F Source: FARA 7:16 AM [facility] REPOSITORY TYPE CODE TESTS RESULT OUT OF REFERENCE UNITS RANGE LAB L501.080 70-110 mg/dL High BEDSIDE GLU 139 Result Comment: MANAGEMENT OF PATIENT CARE PER NURSING PROTOCOL Performed By: #### L501.080 #### [facility] Point of Care [address] [facility] [place] [address] BEDSIDE GLUCOSE Collected: 11/21/2017 Status: F Source: FARA 6:50 AM [facility] REPOSITORY TYPE CODE TESTS RESULT OUT OF REFERENCE UNITS RANGE LAB L501.080 70-110 mg/dL Low BEDSIDE GLU 65 Result Comment: MANAGEMENT OF PATIENT CARE PER NURSING PROTOCOL Performed By: #### L501.080 #### [facility] Point of Care [address] [facility] [place] [address] BEDSIDE GLUCOSE Collected: 11/21/2017 Status: F Source: FARA 6:32 AM [facility] REPOSITORY TYPE CODE TESTS RESULT OUT OF REFERENCE UNITS RANGE LAB L501.080 70-110 mg/dL Low alert BEDSIDE GLU 38 Result Comment: Snack Given MANAGEMENT OF PATIENT CARE PER NURSING PROTOCOL Performed By: #### L501.080 #### [facility] Point of Care [address] [place] [address] GLUCOSE Collected: 11/21/2017 Status: F Source: FARA 6:26 AM [facility] REPOSITORY TYPE CODE TESTS RESULT OUT OF RANGE REFERENCE UNITS LAB L501.0100 74-106 mg/dL Low alert GLU 29 Result Comment: Critical Result(s) Called at: 06:46:47 11/21/2017 by: Alex Horton RN (MS3) Glucose result less than 50 mg/dL suggests HYPOGLYCEMIA. Please note revised GLUCOSE reference range effective 2017. Performed By: #### L501.0100 #### [facility] [address] [place], [address] BEDSIDE GLUCOSE Collected: 11/21/2017 Status: F Source: FARA 6:01 AM [facility] REPOSITORY TYPE CODE TESTS RESULT OUT OF REFERENCE UNITS RANGE LAB L501.080 70-110 mg/dL Low alert BEDSIDE GLU 33 Result Comment: Snack Given MANAGEMENT OF PATIENT CARE PER NURSING PROTOCOL Performed By: #### L501.080 #### [facility] Point of Care [address] [place] [address] BEDSIDE GLUCOSE Collected: 11/20/2017 Status: F Source: FARA 10:07 PM [facility] REPOSITORY TYPE CODE TESTS RESULT OUT OF REFERENCE UNITS RANGE LAB L501.080 70-110 mg/dL High BEDSIDE GLU 272 Result Comment: MANAGEMENT OF PATIENT CARE PER NURSING PROTOCOL Performed By: #### L501.080 #### [facility] Point of Care [address] [place] [address] BEDSIDE GLUCOSE Collected: 11/20/2017 Status: F Source: FARA 5:52 PM [facility] REPOSITORY TYPE CODE TESTS RESULT OUT OF REFERENCE UNITS RANGE LAB L501.080 70-110 mg/dL High BEDSIDE GLU 173 Result Comment: MANAGEMENT OF PATIENT CARE PER NURSING PROTOCOL Performed By: #### L501.080 #### [facility] Point of Care [address] [place] [address] VENOUS DUPLEX LOWER Observed: 11/20/2017 Status: F Source: [place] EXTREMITY 5:51 PM [facility] REPOSITORY [facility] Cardiovascular Services [address] [place] [address] Venous Duplex US - Compa Extrem 11/20/17 1145 MR#: [id number] Acct: [id number] Name: AMARILYS KAISER Rep #: [id number] : 1975 41 From: Chao Wei MD Attending Dr: Van Ga MD Status: ADM IN Ordering Dr: Inocencio Espinoza MD Date: 11/20/17 Location: MS3 Sex: M C Admitted: 11/19/17 Reason For Study: LEG SWELLING RIGHT LEFT GSV is normal. GSV is normal. CFV is compressible, spontaneous, phasic, CFV is compressible, spontaneous, phasic, competent and demonstrates normal competent, and demonstrates normal augmentation. augmentation. FV is compressible, spontaneous, phasic, FV is compressible, spontaneous, phasic, competent and demonstrates normal competent and demonstrates normal augmentation. augmentation. POP V is compressible, spontaneous, phasic, POP V is compressible, spontaneous, phasic, competent and demonstrates normal competent and demonstrates normal augmentation. augmentation. T/P Trunk is compressible. T/P Trunk is compressible. PTV is compressible. PTV is compressible. RT PerV is compressible. LT PerV is compressible. Procedure Exam performed portable in patient room. A preliminary report was called and/or faxed to MS-3. Interpretation Summary No evidence for acute deep venous thrombosis bilateral lower extremities with patent and compressible bilateral great saphenous veins. Ordering Physician: Inocencio Espinoza Referring Physician: Cassie Graham Performed By: Kanchan Wolfe [id number] [id number] Date Chao Wei MD CC: Jose Graham MD; Van Ga MD; Inocencio Espinoza MD Date Dictated: 11/20/17 1145 Date Transcribed: 11/20/171749 Sales Producer: Signed BEDSIDE GLUCOSE Collected: 11/20/2017 Status: F Source: FARA 3:59 PM [facility] REPOSITORY TYPE CODE TESTS RESULT OUT OF RANGE REFERENCE UNITS LAB L501.080 70-110 mg/dL Normal BEDSIDE GLU 94 Result Comment: MANAGEMENT OF PATIENT CARE PER NURSING PROTOCOL Performed By: #### L501.080 #### [facility] Point of Care [address] [place] [address] BEDSIDE GLUCOSE Collected: 11/20/2017 Status: F Source: FARA 2:45 PM [facility] REPOSITORY TYPE CODE TESTS RESULT OUT OF RANGE REFERENCE UNITS LAB L501.080 70-110 mg/dL Normal BEDSIDE GLU 77 Result Comment: MANAGEMENT OF PATIENT CARE PER NURSING PROTOCOL Performed By: #### L501.080 #### [facility] Point of Care [address] [place] [address] BEDSIDE GLUCOSE Collected: 11/20/2017 Status: F Source: FARA 1:01 PM [facility] REPOSITORY TYPE CODE TESTS RESULT OUT OF RANGE REFERENCE UNITS LAB L501.080 70-110 mg/dL Normal BEDSIDE GLU 80 Result Comment: MANAGEMENT OF PATIENT CARE PER NURSING PROTOCOL Performed By: #### L501.080 #### [facility] Point of Care [address] [place] [address] BEDSIDE GLUCOSE Collected: 11/20/2017 Status: F Source: FARA 11:04 AM [facility] REPOSITORY TYPE CODE TESTS RESULT OUT OF REFERENCE UNITS RANGE LAB L501.080 70-110 mg/dL High BEDSIDE GLU 208 Result Comment: MANAGEMENT OF PATIENT CARE PER NURSING PROTOCOL Performed By: #### L501.080 #### [facility] Point of Care [address] [place] [address] BEDSIDE GLUCOSE Collected: 11/20/2017 Status: F Source: FARA 8:23 AM [facility] REPOSITORY TYPE CODE TESTS RESULT OUT OF REFERENCE UNITS RANGE LAB L501.080 70-110 mg/dL High BEDSIDE GLU 174 Result Comment: MANAGEMENT OF PATIENT CARE PER NURSING PROTOCOL Performed By: #### L501.080 #### [facility] Point of Care [address] [place] [address] BEDSIDE GLUCOSE Collected: 11/20/2017 Status: F Source: FARA 7:43 AM [facility] REPOSITORY TYPE CODE TESTS RESULT OUT OF REFERENCE UNITS RANGE LAB L501.080 70-110 mg/dL Low alert BEDSIDE GLU 41 Result Comment: Snack Given MANAGEMENT OF PATIENT CARE PER NURSING PROTOCOL Performed By: #### L501.080 ####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 cyclobenzaprine (FLEXERIL) 10 mg tablet Take 1 tablet by mouth three times daily as needed for Muscle Spasm. Dr. Swanson No current facility-administered medications on file prior to visit. Social History Social History Marital status: Single Spouse name: Years of education: Number of children: 2 Social History Main Topics Smoking status: Current Every Day Smoker Packs/day: 1.00 Years: 26.00 Types: Cigarettes Smokeless tobacco: Former User Comment: down from 2 packs per day Alcohol use: Yes Comment: rarely Drug use: Yes Frequency: 3.0 times per week Types: Marijuana Comment: now down to once a week Sexual activity: Not Currently Review of Symptoms REVIEW OF SYSTEMS GENERAL: No weight loss, malaise or fevers RESPIRATORY: Negative for cough, hemoptysis, wheezing, COPD, dyspnea or shortness of breath CARDIOVASCULAR: Negative for chest pain, leg swelling, hypertension, CHF or palpitations GI: No nausea, vomiting, or diarrhea SKIN: Negative for lesions, rash, and itching EXAM: BP 150/104 Pulse 102 Resp 16 Wt 58.5 kg (129 lb) BMI 21.39 kg/m? General Appearance: Well appearing, alert, in no acute distress, well-hydrated, well nourished.. Skin: Skin color, texture, turgor normal, no suspicious rashes or lesions. Lungs: Lungs clear to auscultation. No wheezing, rhonchi, rales. Heart: RRR without murmur, gallop, or rubs. No ectopy. Abdomen: Normal abdominal exam, Abdomen soft, non-tender. Bowel sounds normal. No masses, organomegaly. Extremities: Edema: 2+ edema to knees bilaterally. Health Maintenance List BLOOD PRESSURE CONTROLLED due on 1992 INFLUENZA(1) due on 11/25/2017 DIABETES MED ADHERENCE due on 11/25/2017 STEROID INHALER ADHERENCE due on 11/25/2017 HBA1C due on 02/07/2018 DIABETIC FOOT EXAM due on 04/03/2018 ANNUAL PCP TEAM CHRONIC DISEASE VISIT due on 04/20/2018 LDL CHOLESTEROL due on 04/25/2018 DILATED RETINAL EXAM due on 10/20/2018 URINE ALBUMIN:CREATININE RATIO due on 11/07/2018 DTAP,TDAP,TD(2 - Td) due on 10/03/2026 ONE PNEUMOVAX PRIOR TO AGE 65 Completed Data reviewed Component Latest Ref Rng AND Units 04/25/2017 11/07/2017 Protein, Total 6.3 - 8.0 g/dL 5.4 (L) 5.8 (L) Albumin 3.9 - 4.9 g/dL 2.3 (L) 2.6 (L) Calcium 8.5 - 10.2 mg/dL 8.6 9.0 Bilirubin, Total 0.2 - 1.3 mg/dL <0.2 (L) <0.2 (L) Alkaline Phosphatase 36 - 108 U/L 188 (H) 209 (H) AST 14 - 40 U/L 67 (H) 35 Glucose 74 - 99 mg/dL 296 (H) 250 (H) BUN 9 - 24 mg/dL 25 (H) 24 Creatinine 0.73 - 1.22 mg/dL 0.85 1.51 (H) Sodium 136 - 144 mmol/L 131 (L) 132 (L) Potassium 3.7 - 5.1 mmol/L 4.3 4.1 Chloride 97 - 105 mmol/L 93 (L) 92 (L) CO2 22 - 30 mmol/L 29 25 Anion Gap 9 - 18 mmol/L 9 15 ALT 10 - 54 U/L 86 (H) 45 eGFR- >60 >60 eGFR-All Other Races . >60 51 Cholesterol, Total <200 mg/dL 330 (H) Triglyceride <150 mg/dL 276 (H) HDL Cholesterol >39 mg/dL 72 LDL Cholesterol <100 mg/dL 203 (H) Non HDL Cholesterol <130 mg/dL 258 (H) Fasting Time hrs 11 VLDL Cholesterol <30 mg/dL 55 (H) TC:HDL Ratio <5.10 4.58 LDL:HDL Ratio <2.54 2.82 (H) Hep B Core Ab, Total Negative Negative Hep C Antibody IA Negative Negative Hep B Surface Ag Negative Negative Hep B Surface Ab, Qual Negative Negative Iron 41 - 186 ug/dL 55 TIBC 232 - 386 ug/dL 217 (L) Transferrin Saturation 15 - 57 % 25 Creatinine, Ur Random (UCRR) 20 - 300 mg/dL 86.8 Albumin, Urine Random 0.0 - 23.0 mg/L >4,400.0 (H) Albumin/Creat Ratio 0 - 30 mg/g Not calculated Hemoglobin A1C 4.3 - 5.6 % 13.1 (H) 11.3 (H) Estimated Average Glucose mg/dL 329 278 GGT 10 - 70 U/L 193 (H) Ferritin 30.3 - 565.7 ng/mL 410.2 Vitamin B12 232 - 1,245 pg/mL 933 Folate >4.7 ng/mL 7.1 NT Pro BNP <125 pg/mL 625 (H) ASSESSMENT/PLAN: 1. Type 1 diabetes mellitus with diabetic polyneuropathy (HCC) - ICD9: 250.61, 357.2, ICD10: E10.42 (primary diagnosis) improved control - Continue current medications - Blood glucose monitoring on a four times a day schedule - Encouraged regular aerobic exercise and weight loss - Daily Asprin therapy recommended - Follow up in 4 months, sooner should any other issues arise. 2. Essential hypertension - ICD9: 401.9, ICD10: I10 - poor control - Begin losartan(Cozaar) - Encouraged dietary sodium restriction/DASH diet - Recommended regular aerobic exercise. - Reviewed risks of HTN and principles of treatment - Goal of BP <140/90 - CONSULT TO NEPHROLOGY - LOSARTAN 50 MG TABLET - LOSARTAN 50 MG TABLET 3. Tobacco use - ICD9: 305.1, ICD10: Z72.0 - Cessation encouraged. - Physiologic and physical aspects of tobacco addiction as well as strategies for quitting were discussed. - Counseling was given focusing on the harmful effects of this addiction especially given the patient's medical condition(s) which will be worsened because of the chemicals in tobacco. 4. Anxiety and depression - ICD9: 300.00, 311, ICD10: F41.9, F32.9 Anxiety uncontrolled. Increase zoloft to 100 mg daily. Recheck in 3 months. - SERTRALINE 100 MG TABLET 5. Mixed hyperlipidemia - ICD9: 272.2, ICD10: E78.2 - poor control - Encouraged following a low fat, low cholesterol diet. - Discussed the benefits of regular aerobic exercise and weight loss. - Holding statin due to elevated LFTs 6. Bilateral lower extremity edema - ICD9: 782.3, ICD10: R60.0 Start compression stockings daily. Continue lasix. - COMPOUNDED PRESCRIPTION 7. Malnutrition of moderate degree (HCC) - ICD9: 263.0, ICD10: E44.0 Discussed increased protein in diet. Requesting orders for supplement shakes. 8. Moderate persistent asthma without complication - ICD9: 493.90, ICD10: J45.40 Moderate persistent Asthma stable - Continue current meds - Avoidance of triggers recommended 9. Diabetic polyneuropathy associated with type 1 diabetes mellitus (HCC) - ICD9: 250.61, 357.2, ICD10: E10.42 Continue current regimen. 10. KADIE (acute kidney injury) (HCC) - ICD9: 584.9, ICD10: N17.9 Avoid NSAIDs, push PO fluids as able, low sodium diet. Will refer to nephrology and continue working on DM control. - CONSULT TO NEPHROLOGY 11. Microalbuminuria - ICD9: 791.0, ICD10: R80.9 Significant elevation on recent urine studies. Refer to nephrology for evaluation. - CONSULT TO NEPHROLOGY 12. Venous insufficiency of both lower extremities - ICD9: 459.81, ICD10: I87.2 - COMPOUNDED PRESCRIPTION Cassie Graham MD CNOV Observed: 11/14/2017 Status: COMPLETED Source: [place] 12:00 PM [facility] REPOSITORY Office Visit (FAMPWS) AMARILYS KAISER JR. ([id number]) 1975 M Date Time Provider Department 11/14/17 12:00 PM CASSIE GRAHAM) FAMPWS During your visit today, we recorded the following information about you: Pulse Respiration Blood pressure Weight 102/minute 16/minute 164/118 58.5 kg Cassie Graham MD 11/14/2017 5:55 PM Signed Chief Complaint Patient presents with: 6 Month Exam HPI Amarilys Kaiser Jr. is a 41 year old male who presents here today for 6 month follow up. Patient following up with Dr. Fam for type I DM and recently increased his Lantus from 30 units to 34 units and changed his short acting insulin with 1:8 carbs at meals. A1C improving, but still elevated at 11.3. Next follow up visit in 1 month. Anxiety symptoms not well controlled on current dose of Zoloft. Complains of excessive worrying, trouble controlling worry, irritability/agitation, racing thoughts, fidgeting, trouble concentrating. Denies panic symptoms. Depression symptoms well controlled. C/o bilateral lower extremity swelling which is chronic. Taking lasix 20 mg daily which is not helping much. Does not use compression stockings. Reviewed recent labs. LFTs improved aside from Alk phos which is elevated still. Has not followed up with Dr. Saba recently. Previously had GGT which was elevated indicating liver etiology. Urine albumin elevated significantly and creatinine elevated with decreased GFR. Past medical history, appointments, medications, allergies reviewed. Previous Medical History PAST MEDICAL HISTORY Diagnosis Date - Anxiety and depression - Asthma - Diabetic neuropathy (HCC) Seeing Dr. Land - Emphysema lung (HCC) early stages - GERD (gastroesophageal reflux disease) - Hyperlipidemia - Hypertension - IBS (irritable bowel syndrome) previously seeing GI - Myasthenia gravis (HCC) Seeing Dr. Land-neurology - Shingles - Tobacco use - Type I diabetes mellitus (HCC) Seeing Dr. Fam Previous Surgical History PAST SURGICAL HISTORY Procedure Laterality Date - COLONOSCOPY 09/08/2015 poor prep - procedure aborted - EGD 01/04/2016 [facility] - PAST SURGICAL HISTORY OF Thymectomy - PAST SURGICAL HISTORY OF Cholecystectomy - PAST SURGICAL HISTORY OF teeth extraction-total Family History FAMILY HISTORY Problem Relation Age of Onset - Cancer Father lung - other (Other) Daughter Depression/Psych - Thyroid Maternal Grandmother - Cancer Paternal Grandmother lung - Cancer Paternal Grandfather throat, brain - Hypertension Mother - other (thyroid issues) Mother Patient Allergies ALLERGIES Allergen Reactions - Becca Rash - Reglan [Metoclopram* Hives Current Medications Current Outpatient Prescriptions on File Prior to Visit: insulin detemir U-100 (LEVEMIR FLEXTOUCH U-100 INSULN) 100 unit/mL (3 mL) inpn injection Inject subcutaneous 30 units daily. furosemide (LASIX) 20 mg tablet TAKE ONE TABLET BY MOUTH ONCE DAILY insulin aspart U-100 (NOVOLOG FLEXPEN U-100 INSULIN) 100 unit/mL inpn Take 1 unit per 10 grams of carbs +SSI. 150-200: 1unit, 201-250: 2units, 251-300: 3units, 301-350: 4units, 351-400:5units, TDD 30units. promethazine (PHENERGAN) 25 mg tablet Take 1 tablet by mouth every 6 hours as needed for Nausea/Vomiting. sertraline (ZOLOFT) 50 mg tablet TAKE 1 TABLET EVERY DAY montelukast (SINGULAIR) 10 mg tablet TAKE 1 TABLET AT BEDTIME Insulin [place], Disposable, (BD ULTRA-FINE DAYA PEN NEEDLES) 32 gauge x 5/32 ndle Use one needle for each dose. 4/day. hydroCHLOROthiazide (HYDRODIURIL, ESIDRIX) 50 mg tablet Take 1 tablet by mouth once daily. blood sugar diagnostic (TRUE METRIX GLUCOSE TEST STRIP) test strip Use as instructed 3-4 times daily. lancets (TRUEPLUS LANCETS) 33 gauge misc Use as directed 3- 4 times daily. pyridostigmine (MESTINON) 60 mg tablet Take 1 tablet by mouth three times daily. As needed based on activity. Dr. Land, [facility] metoprolol tartrate, short acting, (LOPRESSOR) 50 mg tablet Take 1 tablet by mouth twice daily. budesonide-formoterol (SYMBICORT) 160-4.5 mcg/actuation inhaler Inhale 2 Puffs as instructed twice daily. albuterol HFA (VENTOLIN HFA) 90 mcg/actuation inhaler Inhale 2 Puffs as instructed every 4 hours as needed. ondansetron orally disintegrating (ZOFRAN ODT) 8 mg disintegrating tablet Take 8 mg by mouth as needed. trimethobenzamide (TIGAN) 300 mg capsule Take 1 capsule by mouth three times daily. Omeprazole 40 mg capsule Take 1 capsule by mouth twice daily before meals (0600/1600). sucralfate (CARAFATE) 1 gram tablet Take 1 g by mouth four times daily. MULTIVITAMIN ORAL Take by mouth. sertraline (ZOLOFT) 50 mg tablet TAKE ONE TABLET BY MOUTH ONCE DAILY gabapentin (NEURONTIN) 300 mg capsule Take one capsule by mouth three times daily, as directed. DX: E11.40 cyclobenzaprine (FLEXERIL) 10 mg tablet Take 1 tablet by mouth three times daily as needed for Muscle Spasm. Dr. Swanson No current facility-administered medications on file prior to visit. Social History Social History Marital status: Single Spouse name: Years of education: Number of children: 2 Social History Main Topics Smoking status: Current Every Day Smoker Packs/day: 1.00 Years: 26.00 Types: Cigarettes Smokeless tobacco: Former User Comment: down from 2 packs per day Alcohol use: Yes Comment: rarely Drug use: Yes Frequency: 3.0 times per week Types: Marijuana Comment: now down to once a week Sexual activity: Not Currently Review of Symptoms REVIEW OF SYSTEMS GENERAL: No weight loss, malaise or fevers RESPIRATORY: Negative for cough, hemoptysis, wheezing, COPD, dyspnea or shortness of breath CARDIOVASCULAR: Negative for chest pain, leg swelling, hypertension, CHF or palpitations GI: No nausea, vomiting, or diarrhea SKIN: Negative for lesions, rash, and itching EXAM: BP 150/104 Pulse 102 Resp 16 Wt 58.5 kg (129 lb) BMI 21.39 kg/m? General Appearance: Well appearing, alert, in no acute distress, well-hydrated, well nourished.. Skin: Skin color, texture, turgor normal, no suspicious rashes or lesions. Lungs: Lungs clear to auscultation. No wheezing, rhonchi, rales. Heart: RRR without murmur, gallop, or rubs. No ectopy. Abdomen: Normal abdominal exam, Abdomen soft, non-tender. Bowel sounds normal. No masses, organomegaly. Extremities: Edema: 2+ edema to knees bilaterally. Health Maintenance List BLOOD PRESSURE CONTROLLED due on 1992 INFLUENZA(1) due on 11/25/2017 DIABETES MED ADHERENCE due on 11/25/2017 STEROID INHALER ADHERENCE due on 11/25/2017 HBA1C due on 02/07/2018 DIABETIC FOOT EXAM due on 04/03/2018 ANNUAL PCP TEAM CHRONIC DISEASE VISIT due on 04/20/2018 LDL CHOLESTEROL due on 04/25/2018 DILATED RETINAL EXAM due on 10/20/2018 URINE ALBUMIN:CREATININE RATIO due on 11/07/2018 DTAP,TDAP,TD(2 - Td) due on 10/03/2026 ONE PNEUMOVAX PRIOR TO AGE 65 Completed Data reviewed Component Latest Ref Rng AND Units 04/25/2017 11/07/2017 Protein, Total 6.3 - 8.0 g/dL 5.4 (L) 5.8 (L) Albumin 3.9 - 4.9 g/dL 2.3 (L) 2.6 (L) Calcium 8.5 - 10.2 mg/dL 8.6 9.0 Bilirubin, Total 0.2 - 1.3 mg/dL <0.2 (L) <0.2 (L) Alkaline Phosphatase 36 - 108 U/L 188 (H) 209 (H) AST 14 - 40 U/L 67 (H) 35 Glucose 74 - 99 mg/dL 296 (H) 250 (H) BUN 9 - 24 mg/dL 25 (H) 24 Creatinine 0.73 - 1.22 mg/dL 0.85 1.51 (H) Sodium 136 - 144 mmol/L 131 (L) 132 (L) Potassium 3.7 - 5.1 mmol/L 4.3 4.1 Chloride 97 - 105 mmol/L 93 (L) 92 (L) CO2 22 - 30 mmol/L 29 25 Anion Gap 9 - 18 mmol/L 9 15 ALT 10 - 54 U/L 86 (H) 45 eGFR- >60 >60 eGFR-All Other Races . >60 51 Cholesterol, Total <200 mg/dL 330 (H) Triglyceride <150 mg/dL 276 (H) HDL Cholesterol >39 mg/dL 72 LDL Cholesterol <100 mg/dL 203 (H) Non HDL Cholesterol <130 mg/dL 258 (H) Fasting Time hrs 11 VLDL Cholesterol <30 mg/dL 55 (H) TC:HDL Ratio <5.10 4.58 LDL:HDL Ratio <2.54 2.82 (H) Hep B Core Ab, Total Negative Negative Hep C Antibody IA Negative Negative Hep B Surface Ag Negative Negative Hep B Surface Ab, Qual Negative Negative Iron 41 - 186 ug/dL 55 TIBC 232 - 386 ug/dL 217 (L) Transferrin Saturation 15 - 57 % 25 Creatinine, Ur Random (UCRR) 20 - 300 mg/dL 86.8 Albumin, Urine Random 0.0 - 23.0 mg/L >4,400.0 (H) Albumin/Creat Ratio 0 - 30 mg/g Not calculated Hemoglobin A1C 4.3 - 5.6 % 13.1 (H) 11.3 (H) Estimated Average Glucose mg/dL 329 278 GGT 10 - 70 U/L 193 (H) Ferritin 30.3 - 565.7 ng/mL 410.2 Vitamin B12 232 - 1,245 pg/mL 933 Folate >4.7 ng/mL 7.1 NT Pro BNP <125 pg/mL 625 (H) ASSESSMENT/PLAN: 1. Type 1 diabetes mellitus with diabetic polyneuropathy (HCC) - ICD9: 250.61, 357.2, ICD10: E10.42 (primary diagnosis) improved control - Continue current medications - Blood glucose monitoring on a four times a day schedule - Encouraged regular aerobic exercise and weight loss - Daily Asprin therapy recommended - Follow up in 4 months, sooner should any other issues arise. 2. Essential hypertension - ICD9: 401.9, ICD10: I10 - poor control - Begin losartan(Cozaar) - Encouraged dietary sodium restriction/DASH diet - Recommended regular aerobic exercise. - Reviewed risks of HTN and principles of treatment - Goal of BP <140/90 - CONSULT TO NEPHROLOGY - LOSARTAN 50 MG TABLET - LOSARTAN 50 MG TABLET 3. Tobacco use - ICD9: 305.1, ICD10: Z72.0 - Cessation encouraged. - Physiologic and physical aspects of tobacco addiction as well as strategies for quitting were discussed. - Counseling was given focusing on the harmful effects of this addiction especially given the patient's medical condition(s) which will be worsened because of the chemicals in tobacco. 4. Anxiety and depression - ICD9: 300.00, 311, ICD10: F41.9, F32.9 Anxiety uncontrolled. Increase zoloft to 100 mg daily. Recheck in 3 months. - SERTRALINE 100 MG TABLET 5. Mixed hyperlipidemia - ICD9: 272.2, ICD10: E78.2 - poor control - Encouraged following a low fat, low cholesterol diet. - Discussed the benefits of regular aerobic exercise and weight loss. - Holding statin due to elevated LFTs 6. Bilateral lower extremity edema - ICD9: 782.3, ICD10: R60.0 Start compression stockings daily. Continue lasix. - COMPOUNDED PRESCRIPTION 7. Malnutrition of moderate degree (HCC) - ICD9: 263.0, ICD10: E44.0 Discussed increased protein in diet. Requesting orders for supplement shakes. 8. Moderate persistent asthma without complication - ICD9: 493.90, ICD10: J45.40 Moderate persistent Asthma stable - Continue current meds - Avoidance of triggers recommended 9. Diabetic polyneuropathy associated with type 1 diabetes mellitus (HCC) - ICD9: 250.61, 357.2, ICD10: E10.42 Continue current regimen. 10. KADIE (acute kidney injury) (HCC) - ICD9: 584.9, ICD10: N17.9 Avoid NSAIDs, push PO fluids as able, low sodium diet. Will refer to nephrology and continue working on DM control. - CONSULT TO NEPHROLOGY 11. Microalbuminuria - ICD9: 791.0, ICD10: R80.9 Significant elevation on recent urine studies. Refer to nephrology for evaluation. - CONSULT TO NEPHROLOGY 12. Venous insufficiency of both lower extremities - ICD9: 459.81, ICD10: I87.2 - COMPOUNDED PRESCRIPTION Cassie Graham MD Referring Provider: SELF [200] Allergies As of Date: 11/14/2017 Noted Allergy Reaction LISINOPRIL 11/14/2017 14 - Other: See Comments Comments: Lip swelling, possible angioedema NICODERM 10/03/2016 2 - Rash REGLAN (METOCLOPRAMIDE HCL) 07/26/2016 4 - Hives Date Reviewed: 11/14/2017 Reviewed by: Petr Paul Ma - Fully Assessed Reason for Visit: 6 Month Exam [189] Primary Visit Diagnosis:Type 1 diabetes mellitus with diabetic polyneuropathy (HCC) [E10.42] Other Visit Diagnoses:Essential hypertension [I10] Tobacco use [Z72.0] Anxiety and depression [F41.9, F32.9] Mixed hyperlipidemia [E78.2] Bilateral lower extremity edema [R60.0] Malnutrition of moderate degree ([facility]) [E44.0] Moderate persistent asthma without complication [J45.40] Diabetic polyneuropathy associated with type 1 diabetes mellitus ([facility]) [E10.42] KADIE (acute kidney injury) ([facility]) [N17.9] Microalbuminuria [R80.9] Venous insufficiency of both lower extremities [I87.2] Order(s):sertraline (ZOLOFT) 100 mg tabletTake 1 tablet by mouth once daily.Disp: 90 tabletRfl: 1 Compression Knee HighsKNEE HIGH COMPRESSION STOCKINGS 20-30 MM. DX: EDEMADisp: 1 DeviceRfl: 1 CONSULT TO NEPHROLOGY [90] Order #: [id number]: 1 losartan (COZAAR) 50 mg tabletTake 1 tablet by mouth once daily.Disp: 30 tabletRfl: 1 Prescriptions as of 11/14/2017 Sig: INSULIN DETEMIR (U-100) 100 U* Inject subcutaneous 30 units * FUROSEMIDE 20 MG TABLET TAKE ONE TABLET BY MOUTH ONCE* INSULIN ASPART U-100 100 UNI* Take 1 unit per 10 grams of c* PROMETHAZINE 25 MG TABLET Take 1 tablet by mouth every * MONTELUKAST 10 MG TABLET TAKE 1 TABLET AT BEDTIME GABAPENTIN 300 MG CAPSULE Take one capsule by mouth thr* PEN NEEDLE, DIABETIC 32 GAUGE* Use one needle for each dose.* HYDROCHLOROTHIAZIDE 50 MG TAB* Take 1 tablet by mouth once d* BLOOD SUGAR DIAGNOSTIC STRIPS Use as instructed 3-4 times d* LANCETS 33 GAUGE Use as directed 3-4 times willy* PYRIDOSTIGMINE BROMIDE 60 MG * Take 1 tablet by mouth three * METOPROLOL TARTRATE 50 MG TAB* Take 1 tablet by mouth twice * BUDESONIDE-FORMOTEROL HFA 160* Inhale 2 Puffs as instructed * ALBUTEROL SULFATE HFA 90 MCG/* Inhale 2 Puffs as instructed * ONDANSETRON 8 MG DISINTEGRATI* Take 8 mg by mouth as needed. TRIMETHOBENZAMIDE 300 MG CAPS* Take 1 capsule by mouth three* OMEPRAZOLE 40 MG CAPSULE,YONNY* Take 1 capsule by mouth twice* SUCRALFATE 1 GRAM TABLET Take 1 g by mouth four times * MULTIVITAMIN ORAL Take by mouth. SERTRALINE 100 MG TABLET Take 1 tablet by mouth once d* COMPOUNDED PRESCRIPTION KNEE HIGH COMPRESSION STOCKIN* LOSARTAN 50 MG TABLET Take 1 tablet by mouth once d* CYCLOBENZAPRINE 10 MG TABLET Take 1 tablet by mouth three * Medication notes this encounter GABAPENTIN 300 MG CAPSULE >> Cassie Graham MD 11/14/2017 12:28 PM >> CASSIE GRAHAM MD Nov 14, 2017 12:28 PM Taking Problem List As Of Date 11/14/2017 Noted Resolved Anxiety and depression [F41.9, F32.9] INVALID FOR* Hypertension [I10] Diabetic neuropathy ([facility]) [E11.40] More... Asthma [J45.909] GERD (gastroesophageal reflux disease) [K21.9] IBS (irritable bowel syndrome) [K58.9] More... Myasthenia gravis ([facility]) [G70.00] More... Tobacco use [Z72.0] Type I diabetes mellitus (HCC) [E10.9] More... Hyperlipidemia [E78.5] Prescriptions ordered this encounter Disp Refills Start End SERTRALINE 100 MG TABLET 90 t* 1 11/14/2017 Route: ORAL Sig: Take 1 tablet by mouth once daily. COMPOUNDED PRESCRIPTION 1 De* 1 11/14/2017 Class: Print RX Sig: KNEE HIGH COMPRESSION STOCKINGS 20-30 MM. DX: EDEMA LOSARTAN 50 MG TABLET 30 t* 5 11/14/2017 11/14/2017 Route: ORAL Sig: Take 1 tablet by mouth once daily. LOSARTAN 50 MG TABLET 30 t* 1 11/14/2017 Route: ORAL Sig: Take 1 tablet by mouth once daily. Medications Discontinued During This Encounter sertraline (ZOLOFT) 50 mg tablet 90 t* 1 07/11/2017 11/14/2017 Sig: TAKE 1 TABLET EVERY DAY Disc: Reason for discontinue is not on file. sertraline (ZOLOFT) 50 mg tablet 30 t* 2 08/17/2017 11/14/2017 Cmt: Please consider 90 day supplies to promote better adherence Sig: TAKE ONE TABLET BY MOUTH ONCE DAILY Disc: Reason for discontinue is not on file. losartan (COZAAR) 50 mg tablet 30 t* 5 11/14/2017 11/14/2017 Route: ORAL Sig: Take 1 tablet by mouth once daily. Disc: Reason for discontinue is not on file. Disposition: Return in about 3 months (around 02/14/2018). Follow-up and Disposition History Recorded Encounter Status:Closed by CASSIE GRAHAM MD on 11/14/17 DISCHARGE INSTRUCTION Observed: 11/07/2017 Status: F Source: [place] 2:07 PM [facility] REPOSITORY [facility] Medical Records Department [address] [place] [address] Discharge Instruction 11/07/17 1406 MR#: [id number] Acct: [id number] Name: AMARILYS KAISER Rep #: [id number] : 1975 41 From: Juanita Matthews DO PCP: Jose Graham MD Status: PRE ER ED Disposition - Plan for ED Patient: Chief Complaint: Bite Instructions: ED Bite Sting Insect Gen Allergic React Referrals: Jose Graham MD [Primary Care Provider] - 3-5 Days What to do if you have Problems For any increased pain, shortness of breath, bleeding, nausea or vomiting, chest pain, or any unexpected problems, contact your Primary Care Provider. Call [facility] ([phone]) or report to the closest Emergency Room. Call 911 if necessary. 11/07/17 140 <Electronically signed by Juanita Matthews DO> Date Juanita Matthews DO Cosigner Signature (If Indicated): Date CC: Jose Graham MD EMERGENCY DEPARTMENT Observed: 11/07/2017 Status: F Source: [place] SUMMARY 2:06 PM [facility] REPOSITORY [facility] Medical Records Department [address] [place] [address] Emergency Department Summary 11/07/17 1404 MR#: [id number] Acct: [id number] Name: AMARILYS KAISER Rep #: [id number] : 1975 41 From: Juanita Matthews DO PCP: Jose Graham MD Status: PRE ER - ER Visit Summary Date of Service: 11/07/17 Chief Complaint: [Insect sting] History of Present Illness: The patient is a 41 M [presents to the emergency department after being stung by an insect to his left calf approximately 20 minutes ago. Patient states that he was working in his garden when he got hit by something. Patient noticed redness and swelling so he applied some ice to the area. Patient states that he began feeling nauseated and then decided to come in and get evaluated. Patient denies lip or tongue swelling or difficulty breathing. Patient is unsure what may have stung him.] Physical Examination: [HEENT-PERRLA, EOMI. Cranial nerves II through XII grossly intact. TMs clear. Mucous membranes moist. No adenopathy. No angioedema noted of the lips, tongue, or soft tissue structures of the mouth. Cardiovascular-regular rate and rhythm without murmur or ectopy Lungs-clear to auscultation, chest wall stable without crepitus or subcu emphysema Abdomen-normoactive bowel sounds, soft, nontender, no rebound or rigidity, no peritoneal signs. Extremities-intact 4, normal range of motion, normal pulses. Left calf-medial aspect there is an area of erythema measuring approximately 8 x 5 cm with a central portion slightly raised consistent with an insect sting with local inflammatory reaction. Patient neurovascular intact. Patient has no rashes otherwise. Test Results: [None indicated] Emergency Department Course and Treatment: [Patient was given a dose of Benadryl and dose of Zofran for nausea] Treatment Plan: [Patient advised to use ice to the area and Benadryl as needed for itching.] Disposition: [Discharged home in stable condition] Impression: [Insect Sting-local reaction] This note was generated with [employer] dictation software. It may contain incorrect words, spelling, and punctuation that were not noted in review of the chart prior to signing ED Disposition - Plan for ED Patient: Chief Complaint: Bite Referrals: Jose Graham MD [Primary Care Provider] - What to do if you have Problems For any increased pain, shortness of breath, bleeding, nausea or vomiting, chest pain, or any unexpected problems, contact your Primary Care Provider. Call [employer] [facility] ([phone]) or report to the closest Emergency Room. Call 911 if necessary. 11/07/17 8873 <Electronically signed by Juanita Matthews DO> Date Violaus Millantamela DAILY Cosigner Signature (If Indicated): Date CC: Jose Graham MD ALBUMIN/CREAT RATIO Collected: 11/07/2017 Status: F Source: [place] 1:03 PM [facility] [place] REPOSITORY TYPE CODE TESTS RESULT OUT OF REFERENCE UNITS RANGE LAB UCRR 20-300 mg/dL 86.8 Creatinine,Ur ine,Ran LAB UALBR 0.0-23.0 mg/L >4400.0 High Albumin Urine Random LAB UALBCR 0-30 mg/g Not Albumin/Creat calculated Ratio Performed By: #### UACR #### [facility] [address] [place], [place] [address] COMP METABOLIC PANEL Collected: 11/07/2017 Status: F Source: [place] 12:25 PM [facility] REPOSITORY TYPE CODE TESTS RESULT OUT OF REFERENCE UNITS RANGE LAB TP 6.3-8.0 g/dL Low Protein, Total 5.8 LAB ALB 3.9-4.9 g/dL Low Albumin 2.6 LAB CA 8.5-10.2 mg/dL Calcium, Total 9.0 LAB TBIL 0.2-1.3 mg/dL Low Bilirubin, Total <0.2 LAB ALKP 36-108 U/L Alkaline High Phosphatase 209 LAB AST 14-40 U/L AST 35 LAB GLU 74-99 mg/dL Glucose High 250 Result Comment: The [place] [employer] (ADA) provides guidance for cutoff values for fasting glucose and random glucose. The ADA defines fasting as no caloric intake for at least 8 hours. Fas ting plasma glucose results between 100 to 125 mg/dL indicate increased risk for diabetes (prediabetes). Fasting plasma glucose results greater than or equal to 126 mg/dL meet the criteria for diagnosis of diabetes. In the absence of unequivocal hyperglycemia, results should be confirmed by repeat testing. In a patient with classic symptoms of hyperglycemia or hyperglycemic crisis, random plasma glucose results greater than or equal to 200 mg/dL meet the criteria for diagnosis of diabetes. Reference: Standards of Medical Care in Diabetes 2016, [place] [employer]. Diabetes Care. 2016.39(Suppl 1). LAB BUN 9-24 mg/dL BUN 24 LAB CRET 0.73-1.22 mg/dL Creatinine High 1.51 LAB NA 136-144 mmol/L Low Sodium 132 LAB K 3.7-5.1 mmol/L Potassium 4.1 LAB CL 97-105 mmol/L Low Chloride 92 LAB CO2 22-30 mmol/L CO2 25 LAB AGAP 9-18 mmol/L Anion Gap 15 LAB ALT 10-54 U/L ALT 45 LAB GFRAA eGFR- Amer. >60 LAB GFRNAA . eGFR-All Other Races 51 Result Comment: eGFR (Estimated GFR) Units of measure: mL/min/1.73 meters squared eGFR is derived from the reexpressed MDRD Study equation using the following parameters: serum creatinine, age, gender and race. The creatinine assay has been calibrated to be traceable to IDMS. An eGFR <60 mL/min/1.73m2 for >3 months is consistent with chronic kidney disease. Refer to KDOQI guidelines for clinical interpretation. In patients with unstable renal function, e.g. those with acute kidney injury, the eGFR may not accurately reflect actual GFR. Performed By: #### CMP, HBA1C #### [facility] [employer] [address] [place], [place] [address] HEMOGLOBIN A1C Collected: 11/07/2017 Status: F Source: [place] 12:25 PM [facility] REPOSITORY TYPE CODE TESTS RESULT OUT OF REFERENCE UNITS RANGE LAB HGBA1C 4.3-5.6 % High Hemoglobin A1c 11.3 LAB HBA0 mg/dL Est. Average Glucose 278 Result Comment: eAG: (Estimated average glucose) is a calculated value from HgbA1c and is medical representative of the average blood glucose level in the last 2-3 month period. Performed By: #### CMP, HBA1C #### [facility] [employer] [address] [place], [place] [address] CNPTOUTREACH Observed: 10/24/2017 Status: COMPLETED Source: [place] 12:00 AM [facility] REPOSITORY Patient Outreach (INTMWH) JOBAMARILYSRUBENS Renee JR. ([id number]) 1975 M Date Time Provider Department 10/24/17 CASSIE GRAHAM) [facility] During your visit today, we recorded the following information about you: Allergies As of Date: 10/24/2017 Noted Allergy Reaction NICODERM 10/03/2016 2 - Rash REGLAN (METOCLOPRAMIDE HCL) 07/26/2016 4 - Hives Date Reviewed: 05/25/2017 Reviewed by: Awais Adhikari Ma - Fully Assessed Visit Diagnosis:Medication management [Z79.899] Order(s):ALBUMIN/CREAT RATIO RND UR [SQUACR] Order #: [id number] FUTURE Prescriptions as of 10/24/2017 Sig: X INSULIN DETEMIR (U-100) 100 U* Inject subcutaneous 30 units * Patient taking differently: Inject 14 Units subcutaneousl* FUROSEMIDE 20 MG TABLET TAKE ONE TABLET BY MOUTH ONCE* X SERTRALINE 50 MG TABLET TAKE ONE TABLET BY MOUTH ONCE* X INSULIN ASPART U-100 100 UNI* Take 1 unit per 10 grams of c* PROMETHAZINE 25 MG TABLET Take 1 tablet by mouth every * MONTELUKAST 10 MG TABLET TAKE 1 TABLET AT BEDTIME X SERTRALINE 50 MG TABLET TAKE 1 TABLET EVERY DAY GABAPENTIN 300 MG CAPSULE Take one capsule by mouth thr* PEN NEEDLE, DIABETIC 32 GAUGE* Use one needle for each dose.* HYDROCHLOROTHIAZIDE 50 MG TAB* Take 1 tablet by mouth once d* BLOOD SUGAR DIAGNOSTIC STRIPS Use as instructed 3-4 times d* LANCETS 33 GAUGE Use as directed 3-4 times willy* PYRIDOSTIGMINE BROMIDE 60 MG * Take 1 tablet by mouth three * CYCLOBENZAPRINE 10 MG TABLET Take 1 tablet by mouth three * METOPROLOL TARTRATE 50 MG TAB* Take 1 tablet by mouth twice * BUDESONIDE-FORMOTEROL HFA 160* Inhale 2 Puffs as instructed * ALBUTEROL SULFATE HFA 90 MCG/* Inhale 2 Puffs as instructed * ONDANSETRON 8 MG DISINTEGRATI* Take 8 mg by mouth as needed. TRIMETHOBENZAMIDE 300 MG CAPS* Take 1 capsule by mouth three* Patient not taking: Reported on 12/18/2017 OMEPRAZOLE 40 MG CAPSULE,YONNY* Take 1 capsule by mouth twice* SUCRALFATE 1 GRAM TABLET Take 1 g by mouth four times * MULTIVITAMIN ORAL Take by mouth. Problem List As Of Date 10/24/2017 Noted Resolved Anxiety and depression [F41.9, F32.9] INVALID FOR* Hypertension [I10] Diabetic neuropathy (HCC) [E11.40] More... Asthma [J45.909] GERD (gastroesophageal reflux disease) [K21.9] IBS (irritable bowel syndrome) [K58.9] More... Myasthenia gravis (HCC) [G70.00] More... Tobacco use [Z72.0] Type I diabetes mellitus (HCC) [E10.9] More... Hyperlipidemia [E78.5] Encounter Status:Closed by Mommy Nearest on 01/05/18 PROGRESS Observed: 08/18/2017 Status: COMPLETED Source: [place] 3:38 PM [facility] REPOSITORY HNO ID: [id number] Author: Lisset Soler Service: (none) Author Type: Clinical Recruiter Type: Progress Notes Filed: 08/23/2017 2:16 PM Note Text: Noted. PROGRESS Observed: 08/18/2017 Status: COMPLETED Source: [place] 1:16 PM [facility] REPOSITORY HNO ID: [id number] Author: Cassie Graham Service: (none) Author Type: Physician Type: Progress Notes Filed: 08/23/2017 2:16 PM Note Text: Patient seeing endo. Will have him follow up with Dr. Fam PROGRESS Observed: 08/17/2017 Status: COMPLETED Source: [place] 3:07 PM [facility] REPOSITORY HNO ID: [id number] Author: Lisset Soler Service: (none) Author Type: Clinical Recruiter Type: Progress Notes Filed: 08/23/2017 2:16 PM Note Text: PHMA TEAMLET DOCUMENTATION Provider Action/FYI: Consult to pharmacy PSR Action/FYI: Teamlet has identified patient by name and date of . Team: Dr. Graham, Lisset Soler MA, Lisset Weathers, RN Gas Worker, Petr Paul MA, BREE GrayR ? Last Office Visit:08/03/2017 ? Next Office Visit: 11/08/2017 ? Last BP/Labs: Blood Pressure: Last 3 Encounter BP Readings: Date: BP: 05/25/2017 118/80 05/25/2017 116/80 04/20/2017 150/110 Lipids: Cholesterol, Total (mg/dL) Date Value 04/25/2017 330 02/20/2017 311 HDL Cholesterol (mg/dL) Date Value 04/25/2017 72 02/20/2017 82 LDL Cholesterol (mg/dL) Date Value 04/25/2017 203 02/20/2017 186 Triglyceride (mg/dL) Date Value 04/25/2017 276 02/20/2017 213 HGB A1C: Lab Results Component Value Date HBA1C 13.1 04/25/2017 HBA1C 13.3 12/27/2016 TSH: TSH (uU/mL) Date Value 12/27/2016 2.920 ) Care Gap: DM - Last HGBA1C is NOT under 9% Plan: ? Confirm PCP / Status ? Type of appointment needed: Follow-up ? Consultation Appointments: Clinical [facility] ? No patient outreach needed at this time ? Labs, HM and Immunization: Labs: Lisset Soler MA CNPTOUTREACH Observed: 08/17/2017 Status: COMPLETED Source: [place] 12:00 AM [facility] REPOSITORY Patient Outreach (FAMPWS) AMARILYS KAISER JR. ([id number]) 1975 M Date Time Provider Department 08/17/17 LISSET SOLER) [facility] During your visit today, we recorded the following information about you: Lisset Soler MA 08/23/2017 2:16 PM Signed PHMA TEAMLET DOCUMENTATION Provider Action/FYI: Consult to pharmacy PSR Action/FYI: Teamlet has identified patient by name and date of . Team: Dr. Graham, Lisset Soler MA, Lisset Weathers, RN Gas Worker, Petr Paul MA, Alycia Khan,PSR ? Last Office Visit:08/03/2017 ? Next Office Visit: 11/08/2017 ? Last BP/Labs: Blood Pressure: Last 3 Encounter BP Readings: Date: BP: 05/25/2017 118/80 05/25/2017 116/80 04/20/2017 150/110 Lipids: Cholesterol, Total (mg/dL) Date Value 04/25/2017 330 02/20/2017 311 HDL Cholesterol (mg/dL) Date Value 04/25/2017 72 02/20/2017 82 LDL Cholesterol (mg/dL) Date Value 04/25/2017 203 02/20/2017 186 Triglyceride (mg/dL) Date Value 04/25/2017 276 02/20/2017 213 HGB A1C: Lab Results Component Value Date HBA1C 13.1 04/25/2017 HBA1C 13.3 12/27/2016 TSH: TSH (uU/mL) Date Value 12/27/2016 2.920 ) Care Gap: DM - Last HGBA1C is NOT under 9% Plan: ? Confirm PCP / Status ? Type of appointment needed: Follow-up ? Consultation Appointments: Clinical [facility] ? No patient outreach needed at this time ? Labs, HM and Immunization: Labs: STEPAN Gonzalez MD 08/23/2017 2:16 PM Signed Patient seeing endo. Will have him follow up with Dr. Jessica Soler MA 08/23/2017 2:16 PM Signed Noted. Allergies As of Date: 08/17/2017 Noted Allergy Reaction NICODERM 10/03/2016 2 - Rash REGLAN (METOCLOPRAMIDE HCL) 07/26/2016 4 - Hives Date Reviewed: 05/25/2017 Reviewed by: Awais Adhikari Ma - Fully Assessed Reason for Visit: PHMA/Care Gap Outreach [3025] Prescriptions as of 08/17/2017 Sig: INSULIN ASPART U-100 100 UNI* Take 1 unit per 10 grams of c* PROMETHAZINE 25 MG TABLET Take 1 tablet by mouth every * SERTRALINE 50 MG TABLET TAKE 1 TABLET EVERY DAY MONTELUKAST 10 MG TABLET TAKE 1 TABLET AT BEDTIME X FUROSEMIDE 20 MG TABLET TAKE 1 TABLET ONE TIME DAILY GABAPENTIN 300 MG CAPSULE Take one capsule by mouth thr* PEN NEEDLE, DIABETIC 32 GAUGE* Use one needle for each dose.* INSULIN GLARGINE (U-100) 100 * Inject 30 Units subcutaneousl* HYDROCHLOROTHIAZIDE 50 MG TAB* Take 1 tablet by mouth once d* BLOOD SUGAR DIAGNOSTIC STRIPS Use as instructed 3-4 times d* LANCETS 33 GAUGE Use as directed 3-4 times willy* PYRIDOSTIGMINE BROMIDE 60 MG * Take 1 tablet by mouth three * CYCLOBENZAPRINE 10 MG TABLET Take 1 tablet by mouth three * METOPROLOL TARTRATE 50 MG TAB* Take 1 tablet by mouth twice * BUDESONIDE-FORMOTEROL HFA 160* Inhale 2 Puffs as instructed * ALBUTEROL SULFATE HFA 90 MCG/* Inhale 2 Puffs as instructed * ONDANSETRON 8 MG DISINTEGRATI* Take 8 mg by mouth as needed. TRIMETHOBENZAMIDE 300 MG CAPS* Take 1 capsule by mouth three* OMEPRAZOLE 40 MG CAPSULE,OYNNY* Take 1 capsule by mouth twice* SUCRALFATE 1 GRAM TABLET Take 1 g by mouth four times * MULTIVITAMIN ORAL Take by mouth. Problem List As Of Date 08/17/2017 Noted Resolved Anxiety and depression [F41.9, F32.9] INVALID FOR* Hypertension [I10] Diabetic neuropathy (HCC) [E11.40] More... Asthma [J45.909] GERD (gastroesophageal reflux disease) [K21.9] IBS (irritable bowel syndrome) [K58.9] More... Myasthenia gravis (HCC) [G70.00] More... Tobacco use [Z72.0] Type I diabetes mellitus (HCC) [E10.9] More... Hyperlipidemia [E78.5] Encounter Status:Closed by LISSET SOLER on 08/23/17 PROGRESS Observed: 07/04/2017 Status: COMPLETED Source: [place] 8:36 AM [facility] REPOSITORY HNO ID: [id number] Author: Lisset Soler Service: (none) Author Type: Clinical Recruiter Type: Progress Notes Filed: 07/04/2017 8:37 AM Note Text: The patient has been identified by name and date of : YES I have scheduled the patient for an appointment on 10/18/2017. The patient will report to the lab prior to the visit. I have pended the following lab orders: CMP HgbA1c PHMA Documentation 07/04/2017 Opts out of [facility] No Appointments Scheduled Scheduled PCP Appt DM2 with No Urine Alb Lab Ordered DM2 with No DFE Record Requested A1C > 8.9 Lab Ordered;Record Requested Lisset Soler MA CNCO Observed: 07/04/2017 Status: COMPLETED Source: [place] 12:00 AM [facility] REPOSITORY Letter Text Amarilys Kaiser Jr. [address] [facility] [address] 07/04/2017 [facility] #: [id number] Dear , Due to a change in the provider's schedule it has been necessary to reschedule your Appointment. Your original appointment was scheduled for October 18, 2017 at 10:40 AM with Cassie Graham M.D. Your new appointment is now scheduled on November 08, 2017 at 9 AM with Cassie Graham M.D. If this new appointment is not convenient for you, please contact our office at [phone]. Thank you for choosing the [facility] as your Healthcare Provider . Sincerely, Family Medicine Appointment Office PROGRESS Observed: 07/03/2017 Status: COMPLETED Source: [place] 10:20 AM [facility] REPOSITORY HNO ID: [id number] Author: Cassie Graham Service: (none) Author Type: Physician Type: Progress Notes Filed: 07/04/2017 8:37 AM Note Text: Orders placed. PROGRESS Observed: 07/03/2017 Status: COMPLETED Source: [place] 10:17 AM [facility] REPOSITORY HNO ID: [id number] Author: Lisset Soler Service: (none) Author Type: Clinical Recruiter Type: Progress Notes Filed: 07/04/2017 8:37 AM Note Text: Please file lab order. Thanks, STEPAN Gonzalez Dr. Patient has appointment tomorrow with Dr. Fam. Please Wait to file order. PROGRESS Observed: 07/03/2017 Status: COMPLETED Source: [place] 7:08 AM [facility] REPOSITORY HNO ID: [id number] Author: Shilpa Khan Psr Service: (none) Author Type: (none) Type: Progress Notes Filed: 07/04/2017 8:37 AM Note Text: Patient has been added to the appointment reminder calendar with lab . Labs still need ordered. PROGRESS Observed: 06/28/2017 Status: COMPLETED Source: [place] 9:08 AM [facility] REPOSITORY HNO ID: [id number] Author: Lisset Soler Service: (none) Author Type: Clinical Recruiter Type: Progress Notes Filed: 07/04/2017 8:37 AM Note Text: PHMA TEAMLET DOCUMENTATION Provider Action/FYI: Patient has appointment scheduled, needs lab ordered, HgbA1c PSR Action/FYI: please call patient remind of appointment and lab work Thanks Teamlet has identified patient by name and date of . Team: Dr. Graham, Lisset Soler MA, , Petr Paul MA, Alycia Khan,PSR ? Last Office Visit:05/25/2017 ? Next Office Visit: 10/18/2017 ? Last BP/Labs: Blood Pressure: Last 3 Encounter BP Readings: Date: BP: 05/25/2017 118/80 05/25/2017 116/80 04/20/2017 150/110 Lipids: Cholesterol, Total (mg/dL) Date Value 04/25/2017 330 02/20/2017 311 HDL Cholesterol (mg/dL) Date Value 04/25/2017 72 02/20/2017 82 LDL Cholesterol (mg/dL) Date Value 04/25/2017 203 02/20/2017 186 Triglyceride (mg/dL) Date Value 04/25/2017 276 02/20/2017 213 HGB A1C: Lab Results Component Value Date HBA1C 13.1 04/25/2017 HBA1C 13.3 12/27/2016 TSH: TSH (uU/mL) Date Value 12/27/2016 2.920 ) Care Gap: DM - Last HGBA1C is NOT under 9% HTN - Last BP NOT under 140/90 Plan: ? Confirm PCP / ? Type of appointment needed: Follow-up ? Consultation Appointments ? Labs, HM and Immunization: Labs: HGB A1C Lisset Soler MA CNPTOUTREACH Observed: 06/28/2017 Status: COMPLETED Source: [place] 12:00 AM [facility] REPOSITORY Patient Outreach (FAMPWS) AMARILYS KAISER JR. ([id number]) 1975 M Date Time Provider Department 06/28/17 LISSET SOLER) FAMPWS During your visit today, we recorded the following information about you: Lisset Soler MA 07/04/2017 8:37 AM Signed PHMA TEAMLET DOCUMENTATION Provider Action/FYI: Patient has appointment scheduled, needs lab ordered, HgbA1c PSR Action/FYI: please call patient remind of appointment and lab work Thanks Teamlet has identified patient by name and date of . Team: Dr. Graham, Lisset Soler MA, , Petr Paul MA, Alycia Khan,PSR ? Last Office Visit:05/25/2017 ? Next Office Visit: 10/18/2017 ? Last BP/Labs: Blood Pressure: Last 3 Encounter BP Readings: Date: BP: 05/25/2017 118/80 05/25/2017 116/80 04/20/2017 150/110 Lipids: Cholesterol, Total (mg/dL) Date Value 04/25/2017 330 02/20/2017 311 HDL Cholesterol (mg/dL) Date Value 04/25/2017 72 02/20/2017 82 LDL Cholesterol (mg/dL) Date Value 04/25/2017 203 02/20/2017 186 Triglyceride (mg/dL) Date Value 04/25/2017 276 02/20/2017 213 HGB A1C: Lab Results Component Value Date HBA1C 13.1 04/25/2017 HBA1C 13.3 12/27/2016 TSH: TSH (uU/mL) Date Value 12/27/2016 2.920 ) Care Gap: DM - Last HGBA1C is NOT under 9% HTN - Last BP NOT under 140/90 Plan: ? Confirm PCP / ? Type of appointment needed: Follow-up ? Consultation Appointments ? Labs, HM and Immunization: Labs: HGB A1C Lisset Soler MA Shilpa Khan Psr 07/04/2017 8:37 AM Signed Patient has been added to the appointment reminder calendar with lab . Labs still need ordered. Lisset Soler MA 07/04/2017 8:37 AM Signed Please file lab order. Thanks, STEPAN Gonzalez Dr. Patient has appointment tomorrow with Dr. Fam. Please Wait to file order. Cassie Graham MD 07/04/2017 8:37 AM Signed Orders placed. Lisset Soler MA 07/04/2017 8:37 AM Signed The patient has been identified by name and date of : YES I have scheduled the patient for an appointment on 10/18/2017. The patient will report to the lab prior to the visit. I have pended the following lab orders: CMP HgbA1c PHMA Documentation 07/04/2017 Opts out of Population Health No Appointments Scheduled Scheduled PCP Appt DM2 with No Urine Alb Lab Ordered DM2 with No DFE Record Requested A1C ANDgt; 8.9 Lab Ordered;Record Requested Lisset Soler MA Allergies As of Date: 06/28/2017 Noted Allergy Reaction NICODERM 10/03/2016 2 - Rash REGLAN (METOCLOPRAMIDE HCL) 07/26/2016 4 - Hives Date Reviewed: 05/25/2017 Reviewed by: Awais Adhikari Ma - Fully Assessed Reason for Visit: PHMA/Care Gap Outreach [[id number]] Primary Visit Diagnosis:Diabetic polyneuropathy associated with type 1 diabetes mellitus (HCC) [E10.42] Other Visit Diagnosis:Type 1 diabetes mellitus with diabetic polyneuropathy (HCC) [E10.42] Order(s):HGB A1C [RUHIR0Y] Order #: [id number] FUTURE COMP METABOLIC PANEL [SQCMP] Order #: [id number] FUTURE Prescriptions as of 06/28/2017 Sig: PEN NEEDLE, DIABETIC 32 GAUGE* Use one needle for each dose.* INSULIN GLARGINE (U-100) 100 * Inject 30 Units subcutaneousl* GABAPENTIN 300 MG CAPSULE Take one capsule by mouth thr* HYDROCHLOROTHIAZIDE 50 MG TAB* Take 1 tablet by mouth once d* BLOOD SUGAR DIAGNOSTIC STRIPS Use as instructed 3-4 times d* LANCETS 33 GAUGE Use as directed 3-4 times willy* PYRIDOSTIGMINE BROMIDE 60 MG * Take 1 tablet by mouth three * CYCLOBENZAPRINE 10 MG TABLET Take 1 tablet by mouth three * SERTRALINE 50 MG TABLET Take 1 tablet by mouth once d* MONTELUKAST 10 MG TABLET Take 1 tablet by mouth daily * METOPROLOL TARTRATE 50 MG TAB* Take 1 tablet by mouth twice * FUROSEMIDE 20 MG TABLET Take 1 tablet by mouth once d* BUDESONIDE-FORMOTEROL HFA 160* Inhale 2 Puffs as instructed * ALBUTEROL SULFATE HFA 90 MCG/* Inhale 2 Puffs as instructed * ONDANSETRON 8 MG DISINTEGRATI* Take 8 mg by mouth as needed. TRIMETHOBENZAMIDE 300 MG CAPS* Take 1 capsule by mouth three* PROMETHAZINE 25 MG TABLET Take 1 tablet by mouth every * OMEPRAZOLE 40 MG CAPSULE,YONNY* Take 1 capsule by mouth twice* SUCRALFATE 1 GRAM TABLET Take 1 g by mouth four times * INSULIN ASPART U-100 100 UNI* Take 1 unit per 10 grams of c* MULTIVITAMIN ORAL Take by mouth. Problem List As Of Date 06/28/2017 Noted Resolved Anxiety and depression [F41.9, F32.9] INVALID FOR* Hypertension [I10] Diabetic neuropathy (HCC) [E11.40] More... Asthma [J45.909] GERD (gastroesophageal reflux disease) [K21.9] IBS (irritable bowel syndrome) [K58.9] More... Myasthenia gravis ([facility]) [G70.00] More... Tobacco use [Z72.0] Type I diabetes mellitus (HCC) [E10.9] More... Hyperlipidemia [E78.5] Encounter Status:Closed by LISSET SOLER on 07/04/17 PROGRESS Observed: 05/30/2017 Status: COMPLETED Source: [place] 1:47 PM [facility] [place] REPOSITORY HNO ID: [id number] Author: Lisset Calvillo (Stepan) Navin Service: (none) Author Type: Clinical Recruiter Type: Progress Notes Filed: 05/30/2017 2:06 PM Note Text: PHMA TEAMLET DOCUMENTATION Provider Action/FYI: patient has appointment 10-18-17 PSR Action/FYI: Teamlet has identified patient by name and date of . Team: Dr. Graham, Lisset Soler MA, Lisset Weathers, RN Gas Worker, JITENDRA Finney, Awais Roche MA, Petr Paul MA, Alycia Khan,PSR ? Last Office Visit:05/25/2017 ? Next Office Visit: 10/18/2017 ? Last BP/Labs: Blood Pressure: Last 3 Encounter BP Readings: Date: BP: 05/25/2017 118/80 05/25/2017 116/80 04/20/2017 150/110 Lipids: Cholesterol, Total (mg/dL) Date Value 04/25/2017 330 02/20/2017 311 HDL Cholesterol (mg/dL) Date Value 04/25/2017 72 02/20/2017 82 LDL Cholesterol (mg/dL) Date Value 04/25/2017 203 02/20/2017 186 Triglyceride (mg/dL) Date Value 04/25/2017 276 02/20/2017 213 HGB A1C: Lab Results Component Value Date HBA1C 13.1 04/25/2017 HBA1C 13.3 12/27/2016 TSH: TSH (uU/mL) Date Value 12/27/2016 2.920 ) Care Gap: DM - Needs dilated eye exam - HM overdue Last HGBA1C is NOT under 9% Plan: ? ? Type of appointment needed: ? Consultation Appointments: ? Labs, HM and Immunization: Diabetic Eye Exam Lisset Soler MA CNPTOUTREACH Observed: 05/30/2017 Status: COMPLETED Source: [place] 12:00 AM [facility] REPOSITORY Patient Outreach (FAMPWS) AMARILYS KAISER JR. ([id number]) 1975 M Date Time Provider Department 05/30/17 LISSET SOLER) FAMPWS During your visit today, we recorded the following information about you: Lisset Soler MA 05/30/2017 2:06 PM Signed PHMA TEAMLET DOCUMENTATION Provider Action/FYI: patient has appointment 10-18-17 PSR Action/FYI: Teamlet has identified patient by name and date of . Team: Dr. Graham, Lisset Soler MA, Lisset Weathers, RN Gas Worker, JITENDRA Finney, Awais Roche MA, Petr Paul MA, Alycia Khan,PSR ? Last Office Visit:05/25/2017 ? Next Office Visit: 10/18/2017 ? Last BP/Labs: Blood Pressure: Last 3 Encounter BP Readings: Date: BP: 05/25/2017 118/80 05/25/2017 116/80 04/20/2017 150/110 Lipids: Cholesterol, Total (mg/dL) Date Value 04/25/2017 330 02/20/2017 311 HDL Cholesterol (mg/dL) Date Value 04/25/2017 72 02/20/2017 82 LDL Cholesterol (mg/dL) Date Value 04/25/2017 203 02/20/2017 186 Triglyceride (mg/dL) Date Value 04/25/2017 276 02/20/2017 213 HGB A1C: Lab Results Component Value Date HBA1C 13.1 04/25/2017 HBA1C 13.3 12/27/2016 TSH: TSH (uU/mL) Date Value 12/27/2016 2.920 ) Care Gap: DM - Needs dilated eye exam - HM overdue Last HGBA1C is NOT under 9% Plan: ? ? Type of appointment needed: ? Consultation Appointments: ? Labs, HM and Immunization: Diabetic Eye Exam Lisset Soler MA Allergies As of Date: 05/30/2017 Noted Allergy Reaction NICODERM 10/03/2016 2 - Rash REGLAN (METOCLOPRAMIDE HCL) 07/26/2016 4 - Hives Date Reviewed: 05/25/2017 Reviewed by: Awais Adhikari Ma - Fully Assessed Reason for Visit: PHMA/Care Gap Outreach [[id number]] Prescriptions as of 05/30/2017 Sig: GABAPENTIN 300 MG CAPSULE Take one capsule by mouth thr* HYDROCHLOROTHIAZIDE 50 MG TAB* Take 1 tablet by mouth once d* BLOOD SUGAR DIAGNOSTIC STRIPS Use as instructed 3-4 times d* LANCETS 33 GAUGE Use as directed 3-4 times willy* PYRIDOSTIGMINE BROMIDE 60 MG * Take 1 tablet by mouth three * CYCLOBENZAPRINE 10 MG TABLET Take 1 tablet by mouth three * SERTRALINE 50 MG TABLET Take 1 tablet by mouth once d* MONTELUKAST 10 MG TABLET Take 1 tablet by mouth daily * METOPROLOL TARTRATE 50 MG TAB* Take 1 tablet by mouth twice * FUROSEMIDE 20 MG TABLET Take 1 tablet by mouth once d* BUDESONIDE-FORMOTEROL HFA 160* Inhale 2 Puffs as instructed * ALBUTEROL SULFATE HFA 90 MCG/* Inhale 2 Puffs as instructed * ONDANSETRON 8 MG DISINTEGRATI* Take 8 mg by mouth as needed. PEN NEEDLE, DIABETIC 32 GAUGE* Use one needle for each dose.* TRIMETHOBENZAMIDE 300 MG CAPS* Take 1 capsule by mouth three* PROMETHAZINE 25 MG TABLET Take 1 tablet by mouth every * OMEPRAZOLE 40 MG CAPSULE,YONNY* Take 1 capsule by mouth twice* SUCRALFATE 1 GRAM TABLET Take 1 g by mouth four times * INSULIN GLARGINE (U-100) 100 * Inject 30 Units subcutaneousl* INSULIN ASPART U-100 100 UNI* Take 1 unit per 10 grams of c* MULTIVITAMIN ORAL Take by mouth. Problem List As Of Date 05/30/2017 Noted Resolved Anxiety and depression [F41.8] INVALID FOR* Hypertension [I10] Diabetic neuropathy (HCC) [E11.40] More... Asthma [J45.909] GERD (gastroesophageal reflux disease) [K21.9] IBS (irritable bowel syndrome) [K58.9] More... Myasthenia gravis (HCC) [G70.00] More... Tobacco use [Z72.0] Type I diabetes mellitus (HCC) [E10.9] More... Hyperlipidemia [E78.5] Disposition: Return in about 3 months (around 08/30/2017). Follow-up and Disposition History Recorded Encounter Status:Closed by LISSET SOLER on 05/30/17 CNNURSE Observed: 05/25/2017 Status: COMPLETED Source: [place] 9:00 AM [facility] REPOSITORY Nurse Visit (FAMPWS) AMARILYS KAISER JR. ([id number]) 1975 M Date Time Provider Department 05/25/17 9:[address] NURSE FAMPWS During your visit today, we recorded the following information about you: Pulse Blood pressure 105/minute 116/80 Referring Provider: CASSIE GRAHAM) [[id number]] Allergies As of Date: 05/25/2017 Noted Allergy Reaction NICODERM 10/03/2016 2 - Rash REGLAN (METOCLOPRAMIDE HCL) 07/26/2016 4 - Hives Date Reviewed: 05/25/2017 Reviewed by: Awais Adhikari Ma - Fully Assessed Reason for Visit: BP Check [142] Primary Visit Diagnosis:Elevated blood pressure reading without diagnosis of hypertension [R03.0] Other Visit Diagnosis:Hypertension, essential [I10] Prescriptions as of 05/25/2017 Sig: GABAPENTIN 300 MG CAPSULE Take one capsule by mouth thr* HYDROCHLOROTHIAZIDE 50 MG TAB* Take 1 tablet by mouth once d* BLOOD SUGAR DIAGNOSTIC STRIPS Use as instructed 3-4 times d* LANCETS 33 GAUGE Use as directed 3-4 times willy* PYRIDOSTIGMINE BROMIDE 60 MG * Take 1 tablet by mouth three * CYCLOBENZAPRINE 10 MG TABLET Take 1 tablet by mouth three * SERTRALINE 50 MG TABLET Take 1 tablet by mouth once d* MONTELUKAST 10 MG TABLET Take 1 tablet by mouth daily * METOPROLOL TARTRATE 50 MG TAB* Take 1 tablet by mouth twice * FUROSEMIDE 20 MG TABLET Take 1 tablet by mouth once d* BUDESONIDE-FORMOTEROL HFA 160* Inhale 2 Puffs as instructed * ALBUTEROL SULFATE HFA 90 MCG/* Inhale 2 Puffs as instructed * ONDANSETRON 8 MG DISINTEGRATI* Take 8 mg by mouth as needed. PEN NEEDLE, DIABETIC 32 GAUGE* Use one needle for each dose.* TRIMETHOBENZAMIDE 300 MG CAPS* Take 1 capsule by mouth three* OMEPRAZOLE 40 MG CAPSULE,YONNY* Take 1 capsule by mouth twice* SUCRALFATE 1 GRAM TABLET Take 1 g by mouth four times * INSULIN GLARGINE (U-100) 100 * Inject 30 Units subcutaneousl* INSULIN ASPART U-100 100 UNI* Take 1 unit per 10 grams of c* MULTIVITAMIN ORAL Take by mouth. PROMETHAZINE 25 MG TABLET Take 1 tablet by mouth every * Medication notes this encounter PROMETHAZINE 25 MG TABLET >> Awais Adhikari Ma 05/25/2017 9:10 AM >> AWAIS ADHIKARI MA Aaliyah May 25, 2017 9:10 AM Therapy complete. Problem List As Of Date 05/25/2017 Noted Resolved Anxiety and depression [F41.8] INVALID FOR* Hypertension [I10] Diabetic neuropathy (HCC) [E11.40] More... Asthma [J45.909] GERD (gastroesophageal reflux disease) [K21.9] IBS (irritable bowel syndrome) [K58.9] More... Myasthenia gravis (HCC) [G70.00] More... Tobacco use [Z72.0] Type I diabetes mellitus (HCC) [E10.9] More... Hyperlipidemia [E78.5] Encounter Status:Closed by AWAIS ADHIKARI MA on 05/25/17 CNPN Observed: 05/25/2017 Status: COMPLETED Source: [place] 12:00 AM [facility] REPOSITORY Telephone (FAMPWS) AMARILYS KAISER JR. ([id number]) 1975 M Date Time Provider Department 05/25/[facility] During your visit today, we recorded the following information about you: Pulse Blood pressure 105/minute 118/80 Awais Adhikari Ma 05/25/2017 9:22 AM Signed Manual Readin/80 Pulse: 105 Reason for blood pressure check - Last BP elevated 04/20/17 PCP office visit-150/110 Patient is: Taking medication as prescribed Yes Took medication today Yes If no, date medication last taken N/A Experiencing side effects No Recommendations Continue taking medications as prescribed Follow-up No Pt has been identified by name and birthdate: Yes Allergies reviewed: Yes Latex allergy: no. Medication - prescribed and OTC reviewed and updated: Yes Do you need any prescription refills prior to your next visit: No Health Maintenance: Reviewed and not up to date and provider notified Cassie Graham MD 05/25/2017 9:39 AM Signed Repeat BP in normal range. Follow up as scheduled. Continue current regimen. Awais Adhikari Ma 05/25/2017 9:53 AM Signed Patient notified via [facility] message. Allergies As of Date: 05/25/2017 Noted Allergy Reaction NICODERM 10/03/2016 2 - Rash REGLAN (METOCLOPRAMIDE HCL) 07/26/2016 4 - Hives Date Reviewed: 05/25/2017 Reviewed by: Awais Adhikari Ma - Fully Assessed Reason for Visit: BP Check [142] Prescriptions as of 05/25/2017 Sig: GABAPENTIN 300 MG CAPSULE Take one capsule by mouth thr* HYDROCHLOROTHIAZIDE 50 MG TAB* Take 1 tablet by mouth once d* BLOOD SUGAR DIAGNOSTIC STRIPS Use as instructed 3-4 times d* LANCETS 33 GAUGE Use as directed 3-4 times willy* PYRIDOSTIGMINE BROMIDE 60 MG * Take 1 tablet by mouth three * CYCLOBENZAPRINE 10 MG TABLET Take 1 tablet by mouth three * SERTRALINE 50 MG TABLET Take 1 tablet by mouth once d* MONTELUKAST 10 MG TABLET Take 1 tablet by mouth daily * METOPROLOL TARTRATE 50 MG TAB* Take 1 tablet by mouth twice * FUROSEMIDE 20 MG TABLET Take 1 tablet by mouth once d* BUDESONIDE-FORMOTEROL HFA 160* Inhale 2 Puffs as instructed * ALBUTEROL SULFATE HFA 90 MCG/* Inhale 2 Puffs as instructed * ONDANSETRON 8 MG DISINTEGRATI* Take 8 mg by mouth as needed. PEN NEEDLE, DIABETIC 32 GAUGE* Use one needle for each dose.* TRIMETHOBENZAMIDE 300 MG CAPS* Take 1 capsule by mouth three* PROMETHAZINE 25 MG TABLET Take 1 tablet by mouth every * OMEPRAZOLE 40 MG CAPSULE,YONNY* Take 1 capsule by mouth twice* SUCRALFATE 1 GRAM TABLET Take 1 g by mouth four times * INSULIN GLARGINE (U-100) 100 * Inject 30 Units subcutaneousl* INSULIN ASPART U-100 100 UNI* Take 1 unit per 10 grams of c* MULTIVITAMIN ORAL Take by mouth. Problem List As Of Date 05/25/2017 Noted Resolved Anxiety and depression [F41.8] INVALID FOR* Hypertension [I10] Diabetic neuropathy (HCC) [E11.40] More... Asthma [J45.909] GERD (gastroesophageal reflux disease) [K21.9] IBS (irritable bowel syndrome) [K58.9] More... Myasthenia gravis (HCC) [G70.00] More... Tobacco use [Z72.0] Type I diabetes mellitus (HCC) [E10.9] More... Hyperlipidemia [E78.5] Encounter Status:Closed by AWAIS ADHIKARI MA on 05/25/17 PROGRESS Observed: 04/27/2017 Status: COMPLETED Source: [place] 9:05 AM [facility] REPOSITORY O ID: [id number] Author: Patricia Tatum Service: (none) Author Type: (none) Type: Progress Notes Filed: 04/27/2017 9:06 AM Note Text: Radiology Service Progress Note PATIENT NAME: Amarilys Kaiser Jr. DATE OF SERVICE: April 27, 2017 TIME: 9:05 AM PATIENT IDENTITY VERIFICATION COMPLETED USING TWO (2) METHODS: Patient confirmed name verbally and Date of . PATIENT GENDER DATA: Male PATIENT RELEVANT IMPLANT DATA REVIEWED: Not Applicable RADIOLOGY DEPARTMENT: CT; Exam(s) Completed: Chest PERIPHERAL IV DATA: Not applicable SIGNED BY: Patricia Khalil [address] April 27, 2017 9:[address] CHEST WO IVCON Observed: 04/27/2017 Status: F Source: [place] 9:01 AM [facility] REPOSITORY * * *Final Report* * * DATE OF EXAM: Apr 27 2017 9:01AM [facility] 0541 - CT CHEST WO IVCON / PROCEDURE REASON: Other nonspecific abnormal finding of lung field * * * * Physician Interpretation * * * * EXAMINATION: CHEST CT WITHOUT CONTRAST Indication: Other nonspecific abnormal finding of lung field Technique: Spiral CT acquisition of the chest from the thoracic inlet to the upper abdomen without contrast. M: [id number] CT Dose-Length Product: 141 mGy*cm CT Dose Reduction Employed: Automated exposure control(AEC) and iterative recon Comparison: Type of study and date/time RESULT: Limitations: None. Lines, tubes, and devices: None. Lung parenchyma and pleura: There is a 6 mm noncalcified nodule in the RIGHT lower lobe image 126 there is a 5 mm noncalcified nodule RIGHT lung base is 168 smaller noncalcified nodule RIGHT lung base image 161 There is a 2 mm noncalcified nodule RIGHT upper lobe anteriorly image 103 scattered other subcentimeter noncalcified nodules are seen in each lung. Thoracic inlet, heart, and mediastinum: Postsurgical clips in the prevascular space probably due to previous splenectomy in a patient with myasthenia gravis. No definite mediastinal or hilar adenopathy is seen. No axillary adenopathy is seen. No lymphadenopathy in the axillary, mediastinal, or hilar regions. The thoracic aorta and main pulmonary artery are normal in caliber. The cardiac chambers are normal in size. No coronary artery atherosclerotic calcifications are noted, although the study is not optimized for coronary assessment. No pericardial effusion or thickening. Bones and soft tissues: No destructive bone lesion. Chest wall is unremarkable. Upper abdomen: No abnormality in the imaged upper abdomen. IMPRESSION: 1. There are multiple noncalcified nodules throughout each lung the largest of these is 6 mm. No further evaluation is performed at this time than a Follow-up study suggested in 6 months 2. Postsurgical clips in the prevascular space Sales Producer: MORIS Transcribe Date/Time: Apr 28 2017 8:48A Dictated by : ABDIRASHID HERNANDEZ DO This examination was interpreted and the report reviewed and electronically signed by: ABDIRASHID HERNANDEZ DO on Apr 28 2017 5:01PM EST [id number] VITAMIN B12 Collected: 04/25/2017 Status: F Source: [place] 7:54 AM [facility] REPOSITORY TYPE CODE TESTS RESULT OUT OF REFERENCE UNITS RANGE LAB B12 232-1245 pg/mL Vitamin B12 933 Performed By: #### B12, SERFOL, CMP, IRON, FERR, NTBNP, GGT, LIPB, HBA1C, HREMOP #### [facility] [address] [id number] FOLATE, SERUM Collected: 04/25/2017 Status: F Source: [place] 7:54 AM [facility] REPOSITORY TYPE CODE TESTS RESULT OUT OF REFERENCE UNITS RANGE LAB SERFOL >4.7 ng/mL Folate, 7.1 Serum Performed By: #### B12, SERFOL, CMP, IRON, FERR, NTBNP, GGT, LIPB, HBA1C, HREMOP #### [facility] [address] [address] COMP METABOLIC PANEL Collected: 04/25/2017 Status: F Source: [place] 7:54 AM [facility] REPOSITORY TYPE CODE TESTS RESULT OUT OF REFERENCE UNITS RANGE LAB TP 6.3-8.0 g/dL Low Protein, Total 5.4 LAB ALB 3.9-4.9 g/dL Low Albumin 2.3 LAB CA 8.5-10.2 mg/dL Calcium, Total 8.6 LAB TBIL 0.2-1.3 mg/dL Low Bilirubin, Total <0.2 LAB ALKP 36-108 U/L Alkaline High Phosphatase 188 LAB AST 14-40 U/L AST High 67 LAB GLU 74-99 mg/dL Glucose High 296 Result Comment: The [place] [employer] (ADA) provides guidance for cutoff values for fasting glucose and random glucose. The ADA defines fasting as no caloric intake for at least 8 hours. Fas ting plasma glucose results between 100 to 125 mg/dL indicate increased risk for diabetes (prediabetes). Fasting plasma glucose results greater than or equal to 126 mg/dL meet the criteria for diagnosis of diabetes. In the absence of unequivocal hyperglycemia, results should be confirmed by repeat testing. In a patient with classic symptoms of hyperglycemia or hyperglycemic crisis, random plasma glucose results greater than or equal to 200 mg/dL meet the criteria for diagnosis of diabetes. Reference: Standards of Medical Care in Diabetes 2016, [place] [employer]. Diabetes Care. 2016.39(Suppl 1). LAB BUN 9-24 mg/dL BUN High 25 LAB CRET 0.73-1.22 mg/dL Creatinine 0.85 LAB NA 136-144 mmol/L Low Sodium 131 LAB K 3.7-5.1 mmol/L Potassium 4.3 LAB CL 97-105 mmol/L Low Chloride 93 LAB CO2 22-30 mmol/L CO2 29 LAB AGAP 9-18 mmol/L Anion Gap 9 LAB ALT 10-54 U/L ALT High 86 LAB GFRAA eGFR- Amer. >60 LAB GFRNAA . eGFR-All Other Races >60 Result Comment: eGFR (Estimated GFR) Units of measure: mL/min/1.73 meters squared eGFR is derived from the reexpressed MDRD Study equation using the following parameters: serum creatinine, age, gender and race. The creatinine assay has been calibrated to be traceable to IDMS. An eGFR <60 mL/min/1.73m2 for >3 months is consistent with chronic kidney disease. Refer to KDOQI guidelines for clinical interpretation. In patients with unstable renal function, e.g. those with acute kidney injury, the eGFR may not accurately reflect actual GFR. Performed By: #### B12, SERFOL, CMP, IRON, FERR, NTBNP, GGT, LIPB, HBA1C, HREMOP #### [facility] [address] [place], [place] [address] IRON AND TIBC Collected: 04/25/2017 Status: F Source: [place] 7:54 AM [facility] REPOSITORY TYPE CODE TESTS RESULT OUT OF REFERENCE UNITS RANGE LAB IRN 41-186 ug/dL Iron 55 LAB TIBC 232-386 ug/dL Low TIBC 217 LAB SAT 15-57 % Transferrin Saturatn 25 Performed By: #### B12, SERFOL, CMP, IRON, FERR, NTBNP, GGT, LIPB, HBA1C, HREMOP #### [address] [address] FERRITIN Collected: 04/25/2017 Status: F Source: [place] 7:54 AM [facility] REPOSITORY TYPE CODE TESTS RESULT OUT OF REFERENCE UNITS RANGE LAB FERR 30.3-565.7 ng/mL Ferritin 410.2 Performed By: #### B12, SERFOL, CMP, IRON, FERR, NTBNP, GGT, LIPB, HBA1C, HREMOP #### [place] [address] NT PRO BNP Collected: 04/25/2017 Status: F Source: [place] 7:54 AM [facility] REPOSITORY TYPE CODE TESTS RESULT OUT OF REFERENCE UNITS RANGE LAB PBNP <125 pg/mL High PRO B Natr 625 Peptide Performed By: #### B12, SERFOL, CMP, IRON, FERR, NTBNP, GGT, LIPB, HBA1C, HREMOP #### [place] [address] GGT Collected: 04/25/2017 Status: F Source: [place] 7:54 AM [facility] REPOSITORY TYPE CODE TESTS RESULT OUT OF RANGE REFERENCE UNITS LAB GGT 10-70 U/L High GGT 193 Performed By: #### B12, SERFOL, CMP, IRON, FERR, NTBNP, GGT, LIPB, HBA1C, HREMOP #### [place] [address] LIPID PANEL, BASIC Collected: 04/25/2017 Status: F Source: [place] 7:54 AM [facility] REPOSITORY TYPE CODE TESTS RESULT OUT OF REFERENCE UNITS RANGE LAB CHOL <200 mg/dL Cholesterol High 330 Result Comment: <200 mg/dL, Desirable 200-239 mg/dL, Borderline high >239 mg/dL, High LAB TRIGLY <150 mg/dL Triglyceride High 276 Result Comment: <150 mg/dL, Normal 150-199 mg/dL, Borderline high 200-499 mg/dL, High >499 mg/dL, Very high LAB HDL >39 mg/dL HDL-Cholesterol 72 Result Comment: 40-59 mg/dL, Acceptable >59 mg/dL, High: Negative risk factor for coronary heart disease <40 mg/dL, Low: Positive risk factor for coronary heart disease LAB LDL <100 mg/dL LDL-Cholesterol High 203 Result Comment: <100 mg/dL, Optimal 100-129 mg/dL, Near optimal/above optimal 130-159 mg/dL, Borderline high 160-189 mg/dL, High >189 mg/dL, Very high Secondary prevention optimal LDL Cholesterol levels are recommended to be < 70 mg/dL LAB NONHDL <130 mg/dL Non HDL High Cholesterol 258 Result Comment: <130 mg/dL, Optimal 130-159 mg/dL, Near optimal/above optimal 160-189 mg/dL, Borderline high 190-219 mg/dL, High >219 mg/dL, Very high Secondary prevention optimal non HDL Cholesterol levels are recommended to be < 100 mg/dL LAB FT hrs Fasting Time 11 LAB VLDL <30 mg/dL High VLDL Cholesterol 55 LAB TCHDL <5.10 TC:HDL Ratio 4.58 LAB LDLHDL <2.54 High LDL:HDL Ratio 2.82 Result Comment: Reference: 1. National Cholesterol Education Program ATP III Guideline At-A-Glance Quick Desk Reference: National Heart, Lung, and Blood [place]. National Institutes of Health. 2001: NIH Publication No. 01-3305. 2. An International Atherosclerosis Society position paper: global recommendations for the management of dyslipidemia: executive summary, Atherosclerosis. 2014: 232(2):410-413. Performed By: #### B12, SERFOL, CMP, IRON, FERR, NTBNP, GGT, LIPB, HBA1C, HREMOP #### [facility] [address] [place], [place] [address] HEMOGLOBIN A1C Collected: 04/25/2017 Status: F Source: [place] 7:54 AM [facility] REPOSITORY TYPE CODE TESTS RESULT OUT OF REFERENCE UNITS RANGE LAB HGBA1C 4.3-5.6 % High Hemoglobin A1c 13.1 LAB HBA0 mg/dL Est. Average Glucose 329 Result Comment: eAG: (Estimated average glucose) is a calculated value from HgbA1c and is medical representative of the average blood glucose level in the last 2-3 month period. Performed By: #### B12, SERFOL, CMP, IRON, FERR, NTBNP, GGT, LIPB, HBA1C, HREMOP #### [facility] [employer] [address] [place], [place] [address] HEPATITIS REMOTE PANEL Collected: 04/25/2017 Status: F Source: [place] 7:54 AM [facility] REPOSITORY TYPE CODE TESTS RESULT OUT OF REFERENCE UNITS RANGE LAB AHBCOT Negative Hep B Core Ab,Total Negative LAB AHCV Negative Hepatitis C Ab Negative IA LAB HBSAGR Negative HBsAg Negative LAB AHBSAG Negative HepB Surface Ab,Qual Negative Result Comment: NEGATIVE Performed By: #### B12, SERFOL, CMP, IRON, FERR, NTBNP, GGT, LIPB, HBA1C, HREMOP #### [facility] [employer] [address] [place], [place] [address] OBSOLETE Observed: 04/24/2017 Status: COMPLETED Source: [place] 12:00 AM [facility] REPOSITORY Refill (ENDMED) AMARILYS KAISER JR. ([id number]) 1975 M Date Time Provider Department 04/24/17 RAYO FAM During your visit today, we recorded the following information about you: Kaleb Westbrook Ma 04/24/2017 10:09 AM Signed Pharmacy requesting refills as follows via faxed request: ALAYNA: 04/03/2017 NOV: 07/03/2017 Pending Prescriptions Disp Refills BLOOD SUGAR DIAGNOSTIC STRIPS 400 Strip 1 Sig: Use as instructed 3-4 times daily. LANCETS 33 GAUGE 400 Each 1 Sig: Use as directed 3-4 times daily. Please review and advise. Kaleb Fam MD 04/24/2017 12:12 PM Signed Patient's request for medication is as follows: Signed Prescriptions Disp Refills blood sugar diagnostic (TRUE METRIX GLUCOSE TEST STRIP) test strip 400 Strip 1 Sig: Use as instructed 3-4 times daily. Authorizing Provider: RAYO FAM lancets (TRUEPLUS LANCETS) 33 gauge misc 400 Each 1 Sig: Use as directed 3-4 times daily. Authorizing Provider: RAYO FAM Prescription(s) as above. Please process accordingly. Rayo Fam MD Allergies As of Date: 04/24/2017 Noted Allergy Reaction BECCA 10/03/2016 2 - Rash REGLAN (METOCLOPRAMIDE HCL) 07/26/2016 4 - Hives Date Reviewed: 04/20/2017 Reviewed by: Sharmin Logan LPN - Fully Assessed Reason for Visit: Refill Request [94] Order(s):blood sugar diagnostic (TRUE METRIX GLUCOSE TEST STRIP) test stripUse as instructed 3-4 times daily.Disp: 400 StripRfl: 1 lancets (TRUEPLUS LANCETS) 33 gauge miscUse as directed 3-4 times daily.Disp: 400 EachRfl: 1 Prescriptions as of 04/24/2017 Sig: BLOOD SUGAR DIAGNOSTIC STRIPS Use as instructed 3-4 times d* LANCETS 33 GAUGE Use as directed 3-4 times willy* PYRIDOSTIGMINE BROMIDE 60 MG * Take 1 tablet by mouth three * CYCLOBENZAPRINE 10 MG TABLET Take 1 tablet by mouth three * SERTRALINE 50 MG TABLET Take 1 tablet by mouth once d* MONTELUKAST 10 MG TABLET Take 1 tablet by mouth daily * METOPROLOL TARTRATE 50 MG TAB* Take 1 tablet by mouth twice * HYDROCHLOROTHIAZIDE 25 MG TAB* Take 1 tablet by mouth once d* FUROSEMIDE 20 MG TABLET Take 1 tablet by mouth once d* BUDESONIDE-FORMOTEROL HFA 160* Inhale 2 Puffs as instructed * ALBUTEROL SULFATE HFA 90 MCG/* Inhale 2 Puffs as instructed * ONDANSETRON 8 MG DISINTEGRATI* Take 8 mg by mouth as needed. PEN NEEDLE, DIABETIC 32 GAUGE* Use one needle for each dose.* TRIMETHOBENZAMIDE 300 MG CAPS* Take 1 capsule by mouth three* PROMETHAZINE 25 MG TABLET Take 1 tablet by mouth every * OMEPRAZOLE 40 MG CAPSULE,YONNY* Take 1 capsule by mouth twice* GABAPENTIN 300 MG CAPSULE Take 300 mg by mouth three ti* SUCRALFATE 1 GRAM TABLET Take 1 g by mouth four times * INSULIN GLARGINE 100 UNIT/ML * Inject 30 Units subcutaneousl* INSULIN ASPART 100 UNIT/ML PERES* Take 1 unit per 10 grams of c* MULTIVITAMIN ORAL Take by mouth. Problem List As Of Date 04/24/2017 Noted Resolved Anxiety and depression [F41.8] INVALID FOR* Hypertension [I10] Diabetic neuropathy (HCC) [E11.40] More... Asthma [J45.909] GERD (gastroesophageal reflux disease) [K21.9] IBS (irritable bowel syndrome) [K58.9] More... Myasthenia gravis (HCC) [G70.00] More... Tobacco use [Z72.0] Type I diabetes mellitus (HCC) [E10.9] More... Hyperlipidemia [E78.5] Prescriptions ordered this encounter Disp Refills Start End BLOOD SUGAR DIAGNOSTIC STRIPS 400 * 1 04/24/2017 Class: [employer] Sig: Use as instructed 3-4 times daily. LANCETS 33 GAUGE 400 * 1 04/24/2017 Class: [employer] Sig: Use as directed 3-4 times daily. Encounter Status:Closed by RAYO FAM MD on 04/24/17 ALLERGIES ALLERGIES DATE TYPE / NAME / CODE REACTION SEVERITY SOURCE CODE 12/07/2017 DRUG LEVOFLOXACIN OTHER: SEE C [facility]/[address] [place] [address] Main [id number]([facility]) Repository 12/07/2017 DRUG LOSARTAN SWELLING [place] [address] Main [id number]([facility]) Repository 11/23/2017 Drug metoclopramide Hives Unknown [place] Allergy/41 HCl/[id number](RXNOR Community [id number]) Repository 11/23/2017 Drug lisinopril/[id number] Angioedema Unknown [place] Allergy/41 8(RXNORM) Community [id number]([facility]) Repository 11/23/2017 Drug losartan/[id number]( Angioedema Unknown [place] Allergy/41 RXNORM) Community [id number]([facility]) Repository 11/14/2017 DRUG LISINOPRIL OTHER: SEE C [facility]/41 [facility] Main [id number]([facility]) Repository 10/03/2016 DRUG/84295 NICODERM RASH [place] 1003([facility]) [place] Repository 07/26/2016 DRUG METOCLOPRAMIDE HCL HIVES [facility]/41 [facility] [id number]( [place] OMED CT) Repository ENCOUNTERS ENCOUNTERS ADMIT/DISCHARGE ACCOUNT ADMITTING ENCOUNTER LOCATION SOURCE NUMBER CLASS 04/20/2018/04/20/19 [id number] Ambulatory [address] Main [place] Repository 04/20/2018/04/20/19 [id number] Ambulatory [address] Main [place] Repository 04/18/2018 [id number] Ambulatory [facility] ing:US Repository 04/17/2018 [id number] Ambulatory [facility] ing:POLAB3 Repository 04/13/2018/04/13/19 [id number] Ambulatory [address] Main [place] Repository 03/09/2018/03/09/20 [id number] Ambulatory [address] Main [place] Repository 03/07/2018/03/09/20 [id number] Ambulatory [address] Main [place] Repository 03/06/2018/03/06/20 [id number] Ambulatory [address] Main [place] Repository 03/05/2018/03/06/20 [id number] Ambulatory [address] Main [place] Repository 03/01/2018/03/02/20 [id number] Ambulatory [address] Main [place] Repository 02/26/2018/02/27/20 [id number] Ambulatory [address] Main [place] Repository 02/13/2018/02/14/20 [id number] Ambulatory [address] Main [place] Repository 01/17/2018/01/19/20 [id number] Ambulatory [address] Main [place] Repository 01/03/2018/01/04/20 [id number] Ambulatory [place] 18 [facility] Main [place] Repository 01/03/2018/01/04/20 [id number] Ambulatory [place] 18 [facility] Main [place] Repository 12/28/2017/12/29/19 [id number] Ambulatory [place] 18 [facility] Main [place] Repository 12/26/2017/12/27/19 [id number] Ambulatory [place] 18 [facility] Main [place] Repository 12/26/2017/12/28/19 [id number] Ambulatory [place] 18 [facility] Main [place] Repository 12/22/2017/12/27/19 [id number] Ambulatory [address] Main [place] Repository 12/22/2017/12/23/19 [id number] Ambulatory [address] Repository 12/21/2017/12/23/19 [id number] Ambulatory [address] Repository 12/18/2017/01/30/20 [id number] Ambulatory [address] Repository 12/07/2017/12/08/19 [id number] Ambulatory [address] Repository 12/07/2017/12/09/19 [id number] Ambulatory [address] Repository 11/30/2017/12/02/19 [id number] Ambulatory [address] Repository 11/23/2017/11/27/19 [id number] White, Heidi Inpatient [place] 18 Encounter [facility] ing:RD6Gayo: Repository BN478Rts: 1 11/23/2017 [id number] Heidi Huynh Ambulatory [facility] [place] Repository 11/23/2017 [id number] Lino Heidi Ambulatory [facility] [place] Repository 11/23/2017 [id number] Heidi Huynh Ambulatory [facility] [place] Repository 11/23/2017 [id number] Ambulatory [facility] [place] Repository 11/19/2017/11/22/19 [id number] [place], Inpatient [place] [address] Encounter [facility] ing:OL7Gmen: Repository NM099Zzx: 1 11/19/2017 [id number] [place], Ambulatory BMSBuilding:B [facility] [place] Repository 11/19/2017 [id number] [facility], Ambulatory BMSBuilding:B [place] Repository 11/19/2017/11/22/19 [id number] Ambulatory BMSBuilding:B [place] 18 .CF.[facility] Repository 11/19/2017 [id number] [place], Ambulatory BMSBuilding:[facility] [place] Repository 11/14/2017/11/16/19 [id number] Ambulatory [address] Repository 11/07/2017/11/08/19 [id number] Emergency [address] ing:ED Repository 11/07/2017 [id number] Ambulatory [facility] Repository 05/25/2017/05/26/19 [id number] Ambulatory [address] Repository 04/27/2017/04/27/19 [id number] Ambulatory [address] Repository 04/25/2017/04/25/19 [id number] Ambulatory [address] Repository PAYERS PAYERS ENCOUNTER GUARANTOR PAYER SUBSCRIBER SOURCE 04/18/2018 AMARILYS ALEXANDRECHUR Primary AMARILYS D BETTIECHUR [place] [id number] ANUJ Insurance:MYCARE CRSC JRDOB: [facility] [place] [facility] [id number] Hospital [address]Ehd: (330) Number: Repository () [id number] Date:3329-15-02WQJO CLAIMS [address] [place] [phone]: 04/18/2018 Secondary NOT GIVENUNK [place] Insurance:SELF PAY [facility] Number: Effective Repository Date:2018-04-17 04/17/2018 Amarilys D Bettiechur Primary AMARILYS D [place] [id number] Anuj Insurance:MYCARE CRSC BUSCHURDOB: [facility] [place] [facility] [id number] Hospital [address]Xxa: (330) Number: Repository () [id number] Date:2405-72-13WLXC CLAIMS [address], [place] [address]MP: 04/17/2018 Secondary NOT GIVENUNK [place] Insurance:SELF PAY [facility] Number: Effective Repository Date:2018-04-17 11/23/2017 Amarilys D Bettiechur Primary AMARILYS D [place] [id number] [place] Insurance:MYCARE CRSC BUSCHURDOB: [facility] [place] [facility] [id number] Hospital [address]Yow: (330) Number: Repository () [id number] Date:0146-42-69MSZF CLAIMS [address], [place] [address]XP: 11/23/2017 Secondary NOT GIVENUNK [place] Insurance:SELF PAY [facility] Number: Effective Repository Date:2017-11-23 11/23/2017 Amarilys Víctor Alexandrechur Primary AMARILYS Víctor Chaudhari [id number] Anuj Insurance:MYCARE CRSC BUS[place]URDOB: [place] [facility] [id number] Hospital [address]Tpb: (330) Number: Repository () [id number] Date:0811-09-86XTSP CLAIMS DEPTPO [address] [place] [phone]: 11/23/2017 Secondary NOT GIVENUNK [place] Insurance:SELF PAY [facility] Number: Effective Repository Date:2017-11-23 11/23/2017 Amarilys Víctor Bettiechtamela Primary AMARILYS D [place] [id number] [place] Insurance:MYCARE CRSC BUS[place]URDOB: [place] [facility] [id number] Hospital 137[address]Zfq: (330) Number: Repository () [id number] Date:4407-89-56FUAD CLAIMS DEPTPO [address] [place] [phone]: 11/23/2017 Secondary NOT GIVENUNK [place] Insurance:SELF PAY [facility] Number: Effective Repository Date:2017-11-23 11/23/2017 Amarilys Víctor Alexandrechur Primary AMARILYS D [place] [id number] [place] Insurance:MYCARE CRSC BUS[place]URDOB: [place] [facility] [id number] Hospital [address]Lme: (330) Number: Repository () [id number] Date:0575-70-69KZIT CLAIMS [address], [place] [address]UD: 11/23/2017 Secondary NOT GIVENUNK [place] Insurance:SELF PAY [facility] Number: Effective Repository Date:2017-11-23 11/23/2017 Amarilys D Buschur Primary AMARILYS D [place] [id number] Anuj Insurance:MYCARE CRSC BUS[place]URDOB: [place] [facility] [id number] Hospital [address]Zoz: (330) Number: Repository () [id number] Date:6696-11-40MEZU CLAIMS DEPT[address] [place] [phone]: 11/23/2017 Secondary NOT GIVENUNK [place] Insurance:SELF PAY [facility] Number: Effective Repository Date:2017-11-23 11/19/2017 Amarilys D Buschur Primary AMARILYS D [place] [id number] Anuj Insurance:MYCARE CRSC [place]URDOB: [place] [facility] [id number] Hospital [address]Bma: (330) Number: Repository () [id number] Date:4595-56-53GHUP CLAIMS DEPTPO [address] [place] [phone]: 11/19/2017 Secondary NOT GIVENUNK [place] Insurance:SELF PAY [facility] Number: Effective Repository Date:2017-11-19 11/19/2017 Maarilys D Bettiechur Primary AMARILYS D [place] [id number] Anuj Insurance:MYCARE CRSC BUS[place]URDOB: [place] [facility] [id number] Hospital [address]Ykd: (330) Number: Repository () [id number] Date:9126-40-46LVCJ CLAIMS DEPTPO [address] [place] [phone]: 11/19/2017 Secondary NOT GIVENUNK [place] Insurance:SELF PAY [facility] Number: Effective Repository Date:2017-11-19 11/19/2017 Amarilys D Bettiechur Primary AMARILYS D [place] [id number] Anuj Insurance:MYCARE CRSC BUS[place]URDOB: [place] [facility] [id number] Hospital [address]Eks: (330) Number: Repository () [id number] Date:8157-26-21PHTY CLAIMS [address], [place] [address]YM: 11/19/2017 Secondary NOT GIVENUNK [place] Insurance:SELF PAY [facility] Number: Effective Repository Date:2017-11-19 11/19/2017 Amarilys D Bettiechur Primary AMARILYS D [place] [id number] Anuj Insurance:MYCARE CRSC [place]UR[place]OB: [place] [facility] [id number] Hospital 164[address]Qvj: (330) Number: Repository () [id number] Date:0325-51-20KRRK CLAIMS [address], [place] [address]DC: 11/19/2017 Secondary NOT GIVENUNK [place] Insurance:SELF PAY [facility] Number: Effective Repository Date:2017-11-19 11/19/2017 Amarilys D Buschur Primary AMARILYS D [place] [id number] [place] Insurance:MYCARE CRSC [place]URDOB: [place] [facility] [id number] Hospital 22016Qey: (330) Number: Repository () [id number] Date:6306-75-68XOCO CLAIMS [address], [place] [address]EO: 11/19/2017 Secondary NOT GIVENUNK [place] Insurance:SELF PAY [facility] Number: Effective Repository Date:2017-11-19 11/07/2017 Amarilys D Buschur Primary AMARILYS D [place] [id number] [place] Insurance:MYCARE CRSC [place]URDOB: [place] [facility] [id number] Hospital [address]Vsk: (330) Number: Repository () [id number] Date:8180-01-20KHBP CLAIMS [address], [place] [address]VW: 11/07/2017 Secondary NOT GIVENUNK [place] Insurance:SELF PAY [facility] Number: Effective Repository Date:2017-11-07
== END ==
PROVIDERS: Family Provider Family Medicine; PCP Family Medicine; Visit Provider Internal Medicine Nephrology
DX: E10.21 Type 1 diabetes mellitus with diabetic nephropathy (principal)
CPT/HCPCS: 82570; 84156

== ENCOUNTER → 2018-04-18 13:57 | Outpatient (CLI) | payer MEDICARE, SELFPAY ==
[2017-11-23 21:57] VITALS: BMI 22.5
--- NOTE | 2018-04-18 14:01 | US_ITS ---
STUDY: RENAL ULTRASOUND - COMPLETE REASON FOR EXAM: Male, 42 years old. Proteinuria. Diabetes. TECHNIQUE: Ultrasound evaluation of the kidneys was performed with real-time and static noel-scale imaging. COMPARISON: None available. FINDINGS: RIGHT KIDNEY: Normal location of the right kidney, which is normal in size. The right kidney measures 10.8 cm. There is a normal cortex of the right kidney. There is no right renal mass or cyst. There are no right renal calculi. There is no right hydronephrosis. DISTAL RIGHT URETER: There is non-visualization of the distal right ureter. There is no demonstrated right ureterovesical junction calculus. There is a visualized right ureteral jet. LEFT KIDNEY: Normal location of the left kidney, which is normal in size. The left kidney measures 10.7 cm. There is a normal cortex of the left kidney. There is no left renal mass or cyst. There are no left renal calculi. There is no left hydronephrosis. DISTAL LEFT URETER: There is non-visualization of the distal left ureter. There is no demonstrated left ureterovesical junction calculus. There is a visualized left ureteral jet. BLADDER: The urinary bladder is partially distended and appears unremarkable. There is ascites noted. US/Kidney and Bladder IMPRESSION: Normal ultrasound of the kidneys and urinary bladder. Ascites. Electronically Signed: Tez Vargas, at 23:22 EST Tel , Service support ,
--- OUTSIDE RECORDS SUMMARY | 2018-06-20 13:51 | XMS RPT_ITS ---
:1975 Author Organization OHIP Support Name Relationship Address Phone LISSET KAISER Unavailable [address] + [place] [address] D Unavailable Unavailable Unavailable BUSCHUR, LISSET Unavailable [address] + [place] [address] D Unavailable Unavailable Unavailable BUSCHUR, LISSET Unavailable [address] + [place] [address] D Unavailable Unavailable Unavailable BUSCHUR, LISSET Unavailable [address] + [place] [address] D Unavailable Unavailable Unavailable BUSCHUR, LISSET Unavailable [address] + [place] [address] D Unavailable Unavailable Unavailable BUSCHUR, LISSET Unavailable [address] + [place] [address] D Unavailable Unavailable Unavailable BUSCHUR, LISSET Unavailable [address] + [place] [address] D Unavailable Unavailable Unavailable BUSCHUR, LISSET Unavailable [address] + [place] [address] D Unavailable Unavailable Unavailable BUSCHUR, LISSET Unavailable [address] + [place] [address] D Unavailable Unavailable Unavailable BUSCHUR, LISSET Unavailable [address] + [place] [address] D Unavailable Unavailable Unavailable BUSCHUR, LISSET Unavailable [address] + [place] [address] D Unavailable Unavailable Unavailable BUSCHUR, LISSET Unavailable [address] + [place] [address] D Unavailable Unavailable Unavailable BUSCHUR, LISSET Unavailable [address] + [place] [address] D Unavailable Unavailable Unavailable Care Team Providers [...] Unavailable CASSIE GRAHAM) Referring Unavailable KALININJR Benito (SUPERVISOR LIVESTOCK YARD) Referring Unavailable TESTRAKECARI Referring Unavailable ADRIEN PARADA Referring Unavailable CASSIE GRAHAM) Referring Unavailable ADRIEN PARADA Referring Unavailable JANIE GAITAN Attending Unavailable CARI HDZ Referring Unavailable LEE MCNAMARA Attending Unavailable CASSIE GRAHAM) Attending Unavailable CASSIE GRAHAM) Referring Unavailable CASSIE GRAHAM) Referring Unavailable KALININAJR (SUPERVISOR LIVESTOCK YARD) Referring Unavailable CASSIE GRAHAM) Referring Unavailable VESNA HARRISON (SWITCH INSPECTOR) Attending Unavailable JOSHUA CAMPBELL Attending Unavailable LEE [...] STATUS SOURCE 03/07/2018 Active Generalized NA Active [facility] abdominal pain / [facility] R10.84(ICD-10) [place] Repository 03/06/2018 Active Diarrhea, NA Active [facility] unspecified / [facility] R19.7(ICD-10) [place] Repository 03/06/2018 Active Encounter for NA Active [facility] screening for other [facility] disorder / [place] Z13.89(ICD-10) Repository 10/03/2016 Active Myasthenia gravis NA Active [facility] without (acute) [facility] exacerbation / [place] G70.00(ICD-10) Repository 01/17/2018 Active Full incontinence of NA Active [facility] feces / [facility] R15.9(ICD-10) [place] Repository 01/17/2018 Active Epigastric pain / NA Active [facility] R10.13(ICD-10) [facility] [place] Repository 01/17/2018 Active Other specified NA Active [facility] diabetes mellitus [facility] with diabetic [place] autonomic Repository (poly)neuropathy / E13.43(ICD-10) 01/17/2018 Active Fatty (change of) NA Active [facility] liver, not elsewhere [facility] classified / [place] K76.0(ICD-10) Repository 01/17/2018 Active Essential (primary) NA Active [facility] hypertension / [facility] I10(ICD-10) [place] Repository 01/17/2018 Active Moderate NA Active [facility] protein-calorie [facility] malnutrition / [place] E44.0(ICD-10) Repository 01/03/2018 Active Abnormal results of NA Active [facility] liver function [facility] studies / [place] R94.5(ICD-10) Repository 01/03/2018 Active Nausea / NA Active [facility] R11.0(ICD-10) [facility] [place] Repository 10/03/2016 Active Type 2 diabetes NA Active [facility] mellitus with other [facility] diabetic [place] neurological Repository complication / E11.49(ICD-10) 12/28/2017 Active Tinea unguium / NA Active [facility] B35.1(ICD-10) [facility] [place] Repository 12/28/2017 Active Other specified NA Active [facility] symptoms and signs [facility] involving the [place] circulatory and Repository respiratory systems / R09.89(ICD-10) 12/26/2017 Active Nonspecific NA Active [facility] elevation of levels [facility] of transaminase and [place] lactic acid Repository dehydrogenase (ldh) / R74.0(ICD-10) 12/26/2017 Active Unknown / BISI, Active [facility] UNK(Unknown) ADRIEN J [facility] [place] Repository 12/22/2017 Active Pain, unspecified / NA Active [facility] R52(ICD-10) [facility] [place] Repository 12/07/2017 Active Acute kidney NA Active [facility] failure, unspecified [facility] / N17.9(ICD-10) [place] Repository 12/07/2017 Active Other specified NA Active [facility] disorders of the [facility] male genital organs [place] / N50.89(ICD-10) Repository 12/07/2017 Active Localized edema / NA Active [facility] R60.0(ICD-10) [facility] [place] Repository 12/18/2017 Unknown M79.89 - Other Chao Wei Active [facility] specified soft Community tissue disorders / Hospital M79.89(ICD-10) Repository 11/07/2017 Active Other assisted NA Active [facility] (current) drug [facility] therapy / [place] Z79.899(ICD-10) Repository 04/27/2017 Active Other nonspecific NA Active [facility] abnormal finding of [facility] lung field / [place] R91.8(ICD-10) Repository 04/25/2017 Active Type 1 diabetes NA Active [facility] mellitus with [facility] diabetic [place] polyneuropathy / Repository E10.42(ICD-10) 04/25/2017 Active Other specified NA Active [facility] abnormal findings of [facility] blood chemistry / [place] R79.89(ICD-10) Repository 04/25/2017 Active Anemia, unspecified NA Active [facility] / D64.9(ICD-10) [facility] [place] Repository 04/25/2017 Active Pleural effusion, NA Active [facility] not elsewhere [facility] Main classified / [place] J90(ICD-10) Repository 04/25/2017 Active Mixed hyperlipidemia NA Active [facility] / E78.2(ICD-10) Clinic Main [place] Repository PROCEDURES PROCEDURES No Procedure Records FoundRESULTS RESULTS PROGRESS Observed: 04/20/2018 Status: COMPLETED Source: [place] 3:54 PM [facility] REPOSITORY HNO ID: [id number] Author: Cari Hdz Service: (none) Author Type: Physician Type: Progress Notes Filed: 04/23/2018 10:28 AM Note Text: Subjective: Patient presents to clinic c/o painful toenails. They state that the nails are especially painful with shoe gear and pressure. Patient states that nails right hallux and right 3rd toenail are painful. Patient admits to being diabetic and states that their blood sugar was 209 mg/dL this AM. He was seen by Dr. Gaitan to discuss ability to heal following removal of toenails. It was determined his circulation is fine to heal procedure but due to poorly controlled diabetes and smoking, we have elected to hold. No other pedal complaints at this time. Patient states no change in medications or medical history since last visit. Objective: Patient presents to clinic ambulating in [facility] Vasc: DP and PT pulses are faint bilateral. CFT is less than 5 seconds bilateral. Skin temperature is warm to cool proximal to distal bilateral. There is no edema or varicosities noted. Neuro: Protective sensation is decreased to the foot and toes when tested with the 5.07 SWM bilateral. Vibratory sensation is decreased at the hallux IPJ bilateral. The hallux is downgoing bilateral. Derm: Nails 1-5 b/l are normal in length. The right 1st and 3rd toenail are thick and painful. Skin is of normal turgor, texture and hair growth is bilateral. There are no hyperkeratosis, ulcerations, scars, verruca or other lesions noted. Ortho: Muscle strength is 5/5 for all pedal groups tested. Ankle joint DF is full with the knee extended with no pain or crepitus noted. 1st MPJ ROM is full bilateral. Assessment: (B35.1) Onychomycosis (primary encounter diagnosis) (E10.21) 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) (I73.9) PAD (peripheral artery disease) ([facility]) Plan: Patient was seen and evaluated. Toenails 1-5 b/l are normal in length. The right 1st and 3rd toenail are thick. These were reduced with power dremmel. Discussed removal of toenails in future. I would highly recommend he get his sugars under control and refrain from smoking prior to any attempted removal of toenails. Patient was instructed on the continued importance of diabetic foot care along with proper diet and keeping their blood sugar under control to prevent complications. Patient is to RTC in 3-4 months. Cari Hdz DPM PROGRESS Observed: 04/20/2018 Status: COMPLETED Source: [place] 3:43 PM [facility] REPOSITORY HNO ID: [id number] Author: Monika Boo RN Service: (none) Author Type: (none) Type: Progress Notes Filed: 04/23/2018 10:28 AM Note Text: AMB ROOMING INTAKE FLOWSHEET DATA Risk Screening Do you have concerns about personal safety or safety in the home?: No Patient is here for diabetic nail care. Reports that his blood sugar was 209 after breakfast. CNOV Observed: 04/20/2018 Status: COMPLETED Source: [place] 3:30 PM [facility] REPOSITORY Office Visit (PODIWS) AMARILYS KAISER JR. ([id number]) 1975 M Date Time Provider Department 04/20/18 3:30 PM CARI HDZ During your visit today, we recorded the following information about you: Monika Boo RN 04/23/2018 10:28 AM Signed AMB ROOMING INTAKE FLOWSHEET DATA Risk Screening Do you have concerns about personal safety or safety in the home?: No Patient is here for diabetic nail care. Reports that his blood sugar was 209 after breakfast. Cari Hdz DPM 04/23/2018 10:28 AM Signed Subjective: Patient presents to clinic c/o painful toenails. They state that the nails are especially painful with shoe gear and pressure. Patient states that nails right hallux and right 3rd toenail are painful. Patient admits to being diabetic and states that their blood sugar was 209 mg/dL this AM. He was seen by Dr. Gaitan to discuss ability to heal following removal of toenails. It was determined his circulation is fine to heal procedure but due to poorly controlled diabetes and smoking, we have elected to hold. No other pedal complaints at this time. Patient states no change in medications or medical history since last visit. Objective: Patient presents to clinic ambulating in sneaker Vasc: DP and PT pulses are faint bilateral. CFT is less than 5 seconds bilateral. Skin temperature is warm to cool proximal to distal bilateral. There is no edema or varicosities noted. Neuro: Protective sensation is decreased to the foot and toes when tested with the 5.07 SWM bilateral. Vibratory sensation is decreased at the hallux IPJ bilateral. The hallux is downgoing bilateral. Derm: Nails 1-5 b/l are normal in length. The right 1st and 3rd toenail are thick and painful. Skin is of normal turgor, texture and hair growth is bilateral. There are no hyperkeratosis, ulcerations, scars, verruca or other lesions noted. Ortho: Muscle strength is 5/5 for all pedal groups tested. Ankle joint DF is full with the knee extended with no pain or crepitus noted. 1st MPJ ROM is full bilateral. Assessment: (B35.1) Onychomycosis (primary encounter diagnosis) (E10.21) Type 1 diabetes mellitus with nephropathy ([facility]) (I73.9) PAD (peripheral artery disease) ([facility]) Plan: Patient was seen and evaluated. Toenails 1-5 b/l are normal in length. The right 1st and 3rd toenail are thick. These were reduced with power dremmel. Discussed removal of toenails in future. I would highly recommend he get his sugars under control and refrain from smoking prior to any attempted removal of toenails. Patient was instructed on the continued importance of diabetic foot care along with proper diet and keeping their blood sugar under control to prevent complications. Patient is to RTC in 3-4 months. Cari Hdz DPM Referring Provider: CARI HDZ [[id number]] Allergies As of Date: 04/20/2018 Noted Allergy [...] RN - Fully Assessed Reason for Visit: Diabetic Foot Care [916] Primary Visit Diagnosis:Onychomycosis [B35.1] Other Visit Diagnoses:Pain in toe of right foot [M79.674] Pain in toe of left foot [M79.675] Type 1 diabetes mellitus with nephropathy ([facility]) [E10.21] PAD (peripheral artery disease) ([facility]) [I73.9] Prescriptions as of 04/20/2018 Sig: INSULIN DETEMIR [...] Take 1 tablet by mouth three * GABAPENTIN 300 MG CAPSULE Take one [...] [K31.84] INVALID FOR* Hypoglycemia [E16.2] INVALID FOR* Disposition: Return in about 6 months (around 10/18/2018) for diabetic foot exam. Follow-up and Disposition History Recorded Encounter Status:Closed by CARI HDZ DPM on 04/23/18 PROGRESS Observed: 04/20/2018 Status: COMPLETED Source: [place] 3:10 PM [facility] REPOSITORY HNO ID: [id number] Author: Lisset Soler Service: (none) Author Type: Gold Leaf Printer Type: Progress Notes Filed: 04/20/2018 3:11 PM Note Text: [facility] SENIOR QUALITATIVE RESEARCHER QUICKNOTE Provider Action/FYI: Patient is opted out of the care gap registry per Dr. Graham. This was discussed at the teamlet meeting. Patient identified by name and . Lisset Soler MA PROGRESS Observed: 04/20/2018 Status: COMPLETED Source: [place] 10:41 AM [facility] REPOSITORY HNO ID: [id number] Author: Joshua Campbell Service: (none) Author Type: Physician Type: Progress Notes Filed: 04/20/2018 5:10 PM Note Text: NEUROLOGY CONSULT [facility] Chief Complaint: MG REQUESTING PHYSICIAN: Lee Mcnamara, DO My final recommendations will be communicated to the requesting health care provider by way of the shared medical record for internal providers or letter via the [employer] for external providers.??? History of Present Illness: This is a 42 year old y.o. right handed male with history of DM type I, gastroparesis, IBD, MG, s/p thymectomy (2001), HLD, HTN who presents today for neurologic consultation. The patient was referred to neurology for evaluation of MG. Mr. Kaiser reports hx of MG, Ab+ in [address] Caruso at [facility]. Symptoms before Dx- diplopia, ptosis, and weakness. He never had myasthenic crisis. MG meds- Imuran and mestinon. Steroids never used b/c hx of DM type I. Thymectomy performed in 2001. Imuran d/c subsequently and mestinon continued 60 mg TID. He became disabled in 2001. He was following with Neurology at [facility]. Reportedly he saw neurology last time 2 years ago. Pt reports having difficulty contacting his neurologist at [facility] and wishes to establish care with [facility] neurology. Current symptoms: Diplopia resolved after thymectomy. [...] mellitus (HCC) Seeing Dr. Fam Current Outpatient Prescriptions on [...] as directed 3- 4 times daily. Insulin [place], Disposable, (BD ULTRA-FINE DAYA PEN NEEDLE) 32 gauge x 5/32 ndle Use one needle for each dose. 4/day. sertraline (ZOLOFT) 100 mg tablet Take 1 tablet by mouth once daily. Compression Knee Highs KNEE HIGH COMPRESSION STOCKINGS 20- 30 MM. DX: EDEMA pyridostigmine (MESTINON) 60 mg tablet Take 1 tablet by mouth three times daily. As needed based on activity. Dr. Land, [facility] sucralfate (CARAFATE) 1 gram tablet Take 1 [...] decreased in feet. MARCO WNL. Coordination: Normal tbierb-uoqq-uyfwkg. Gait: Unable to get up w/o assistance. [...] STUDIES: Results CT CHEST WO IVCON (Order [id number]) Patient Info Patient Name Sex Amarilys Busch Jr. ([id number]) Male 1975 01/04/2018 ?8:13 AM - Radiology, [...] with more than 50% of the total pnbl-dc-rzmo time of the visit in counseling / coordination of care. Joshua Campbell MD Staff, Neurology and Neuromuscular Medicine CNOV Observed: 04/20/2018 Status: COMPLETED Source: [place] 9:40 AM [facility] REPOSITORY Office Visit (NERIMN) AMARILYS KAISER JR. ([id number]) 1975 M Date Time Provider Department 04/20/18 9:40 AM JOSHUA CAMPBELL NENMMN During your visit today, we recorded the following information about you: Pulse Respiration Blood pressure Weight 76/minute 18/minute 133/93 67.1 kg Height 1.676 m Joshua Campbell MD 04/20/2018 5:10 PM Signed NEUROLOGY CONSULT [facility] Chief Complaint: MG REQUESTING PHYSICIAN: Lee Mcnamara, DO My final recommendations will be communicated to the requesting health care provider by way of the shared medical record for internal providers or letter via the [employer] for external providers.??? History of Present Illness: This is a 42 year old y.o. right handed male with history of DM type I, gastroparesis, IBD, MG, s/p thymectomy (2001), HLD, HTN who presents today for neurologic consultation. The patient was referred to neurology for evaluation of MG. Mr. Kaiser reports hx of MG, Ab+ in [address] Caruos at [facility]. Symptoms before Dx- diplopia, ptosis, and weakness. He never had myasthenic crisis. MG meds- Imuran and mestinon. Steroids never used b/c hx of DM type I. Thymectomy performed in 2001. Imuran d/c subsequently and mestinon continued 60 mg TID. He became disabled in 2001. He was following with Neurology at [facility]. Reportedly he saw neurology last time 2 years ago. Pt reports having difficulty contacting his neurologist at [facility] and wishes to establish care with [facility] neurology. Current symptoms: Diplopia resolved after thymectomy. [...] mellitus (HCC) Seeing Dr. Fam Current Outpatient Prescriptions on [...] as directed 3- 4 times daily. Insulin [place], Disposable, (BD ULTRA-FINE DAYA PEN NEEDLE) 32 gauge x ndle Use one needle for each dose. 4/day. sertraline (ZOLOFT) 100 mg tablet Take 1 tablet by mouth once daily. Compression Knee Highs KNEE HIGH COMPRESSION STOCKINGS 20- 30 MM. DX: EDEMA pyridostigmine (MESTINON) 60 mg tablet Take 1 tablet by mouth three times daily. As needed based on activity. Dr. Land, [facility] sucralfate (CARAFATE) 1 gram tablet Take 1 [...] decreased in feet. MARCO WNL. Coordination: Normal rukwye-fvdl-mntzym. Gait: Unable to get up w/o assistance. [...] STUDIES: Results CT CHEST WO IVCON (Order [id number]) Patient Info Patient Name Sex Amarilys Busch Jr. ([id number]) Male 1975 01/04/2018 ?8:13 AM - Radiology, [...] with more than 50% of the total mzqf-df-yddx time of the visit in counseling / coordination of care. Joshua Campbell MD Staff, Neurology and Neuromuscular Medicine Joshua Campbell MD 04/20/2018 11:39 AM Signed Blood work EMG Increase gabapentin to 600 mg three times a day Will consider IVIG for myasthenia treatment Referring Provider: LEE MCNAMARA [[id number]] Allergies As of Date: 04/20/2018 Noted Allergy [...] (HCC) [E10.40, E10.65] Order(s):EMG(NEURO/NI) [[id number]] Order #: [id number]: 1 FUTURE CK CREATINE KINASE [SQCK] Order #: [id number] FUTURE ANTI HMGCR AUTOANTIBODIES [SQHMGCR] Order #: [id number] FUTURE Prescriptions as of 04/20/2018 Sig: INSULIN [...] Status:Closed by JOSHUA CAMPBELL MD on 04/20/18 ALFREDOPATRICIA Observed: 04/20/2018 Status: COMPLETED Source: [place] 12:00 AM [facility] REPOSITORY Patient Outreach (FAMPWS) AMARILYS KAISER JR. ([id number]) 1975 M Date Time Provider Department 04/20/18 [facility] SOLER) BERTHAWS During your visit today, we recorded the following information about you: Lisset Soler MA 04/20/2018 3:11 PM Signed [facility] SENIOR QUALITATIVE RESEARCHER REGGIE Provider Action/FYI: Patient is opted out of [...] Hives Date Reviewed: 04/20/2018 Reviewed by: Jamila Preston - Fully Assessed Reason for Visit: [facility]/Care Gap Outreach [2097] Prescriptions as of 04/20/2018 Sig: INSULIN DETEMIR [...] AND BLADDER Observed: 04/18/2018 Status: F Source: [place] 2:01 PM [facility] REPOSITORY [facility] Imaging Services [address] [place] [address] Kidney and Bladder MR#: [id number] Acct: [id number] Name: AMARILYS KAISER Rep #: [id number] : 1975 M 42 From: Tez Vargas MD PCP: Jose Graham MD Status: REG CLI Study: Kidney and Bladder Date of Exam: 04/18/18 Exam# [id number] Ordering Dr: Nina Vang DO STUDY: RENAL [...] and urinary bladder. Ascites. Electronically Signed: Tez Vargas, at 23:22 EST Tel , Service support , CC: Nina Vang DO; Jose Graham MD Breaker Table Worker: Signed PROTEIN+CREATININE Collected: Status: F Source: [place] HANDY,URINE 04/17/2018 3:37 PM [facility] REPOSITORY TYPE CODE TESTS RESULT OUT OF RANGE REFERENCE UNITS LAB L501.1200 NO RANGE EST. mg/dL Normal UR CREAT 59.00 LAB L501.1930 <11.9 mg/dL High 875.6 PROTEIN,UR.R AN. LAB L501.1940 0-200 mg/g CRE High PROT:CRE [id number] RATIO Performed By: #### L501.0900 #### [facility] [address] [place], [address] PROGRESS Observed: 04/13/2018 Status: COMPLETED Source: [place] 9:06 AM [facility] REPOSITORY HNO ID: [id number] Author: Vesna (Kirill) Gauri Service: (none) Author Type: Nurse Practitioner Type: Progress Notes Filed: 04/13/2018 10:28 AM Note Text: Reason for Consultation: DM Type 1 Referring Physician: SELF HISTORY OF PRESENT ILLNESS Mr. Kaiser is a 42 year old male presenting here today for a follow up of DM Type 1. As I recall, he was initially diagnosed with diabetes 2000. Previous patient of Dr. Fam; 12/18/2017 A1C 12.0 on 03/06/2018 States dx with myasthenia gravis in 1999. Going to see nephrology next week in [place] for macroalbuminuria. FHx of diabetes in uncle [...] daily. Disp: 400 Each Rfl: 1 Insulin [place], Disposable, (BD ULTRA-FINE DAYA PEN NEEDLE) 32 [...] As needed based on activity. Dr. Land, [facility] Disp: Rfl: buPROPion SR (WELLBUTRIN SR) 150 [...] use Medtronic. Info given for Tate Crockett, [employer] Rep. Plan: COMP METABOLIC PANEL, LIPID PANEL [...] with sensor. Given Tate Crockett contact info. (Z10.0) Tobacco use Comment/Plan: Encourage cessation; he is trying to quit Vesna Harrison APRN, KIRILL-C Endocrinology [facility]/[address] [place], [place] [address] Fax: CNOV Observed: 04/13/2018 Status: COMPLETED Source: [place] 8:45 AM [facility] REPOSITORY Office Visit (ENDMED) AMARILYS KAISER JR. ([id number]) 1975 M Date Time Provider Department 04/13/18 8:45 AM VESNA HARRISON (KIRILL) NATY During your visit today, we recorded the following information about you: Pulse Blood pressure Weight Height 107/minute 140/88 67.6 kg 1.675 m Vesna Harrison APRN.[facility] 04/13/2018 10:28 AM Signed Reason for Consultation: DM Type 1 Referring Physician: SELF HISTORY OF PRESENT ILLNESS Mr. Kaiser is a 42 year old male presenting here today for a follow up of DM Type 1. As I recall, he was initially diagnosed with diabetes 2000. Previous patient of Dr. Fam; [place] 12/18/2017 A1C 12.0 on 03/06/2018 States dx with myasthenia gravis in 1999. Going to see nephrology next week in [place] for macroalbuminuria. FHx of diabetes in uncle [...] Rfl: 1 lancets (TRUEPLUS LANCETS) 33 gauge [facility] Use as directed 3- 4 times daily. Disp: 400 Each Rfl: 1 Insulin [place], Disposable, (BD ULTRA-FINE DAYA PEN NEEDLE) 32 [...] As needed based on activity. Dr. Land, [facility] Disp: Rfl: buPROPion SR (WELLBUTRIN SR) 150 [...] daily as needed for Muscle Spasm. Dr. Swasnon Disp: Rfl: trimethobenzamide (TIGAN) 300 mg capsule [...] use Medtronic. Info given for Tate Crockett, [employer] Rep. Plan: COMP METABOLIC PANEL, LIPID PANEL [...] is trying to quit Vesna Harrison APRN, SWITCH INSPECTOR-C Endocrinology [facility] Office Building/[place] [address] Fax: Vesna Harrison APRN.SUPERVISOR LIVESTOCK YARD 04/13/2018 9:29 AM Addendum 1. Levemir 14 units daily. 2. Novolog Breakfast ratio 1:8 Lunch ratio 1:8 Dinner ratio 1:7; Lower to 1:6 if still high at bedtime. Plus the same correction of 1:50 for sugars over 150. 3. Send readings in a week. 4. Contact Tate Crockett regarding a pump. 5. Follow up in 3 months Vesna Harrison APRN, KIRILL-C Endocrinology [facility] Office [facility]/[place] [address] Fax: Referring Provider: SELF [200] Allergies As [...] Hives Date Reviewed: 04/13/2018 Reviewed by: Vesna Harrison - Fully Assessed Reason for Visit: Diabetes [34] Primary Visit Diagnosis:Diabetes mellitus type 1, uncontrolled, with complications (HCC) [E10.8, E10.65] Other Visit Diagnoses:Essential hypertension [I10] Gastroparesis [K31.84] Hypoglycemia [E16.2] Tobacco use [Z72.0] Order(s):COMP METABOLIC PANEL [SQCMP] Order #: [id number] FUTURE LIPID PANEL BASIC [SQLIPB] Order #: [id number] FUTURE ALBUMIN/CREAT RATIO RND UR [SQUACR] Order #: [id number] FUTURE insulin detemir U-100 (LEVEMIR FLEXTOUCH U-100 [...] by mouth four * OMEPRAZOLE 40 MG CAPSULE,YONYN* Take 1 capsule by mouth once * [...] D/c SUCRALFATE 1 GRAM TABLET >> Cj Palafox Ma 04/13/2018 8:58 AM >> CJ PALAFOX MA [...] up in 3 months Vesna Harrison APRN, SWITCH INSPECTOR-C Endocrinology [facility]/[address] [place] [address] Fax: Prescriptions ordered this encounter Disp Refills [...] 04/13/18 OBSOLETE Observed: 04/09/2018 Status: COMPLETED Source: [place] 12:00 AM [facility] REPOSITORY Refill (ENDMED) AMARILYS KAISER JR. ([id number]) 1975 M Date Time Provider Department 04/09/18 VESNA HARRISON (KIRILL) ENDMED During your visit today, we recorded the following information about you: Mabel Wheeler 04/09/2018 3:16 PM Signed Has an appointment Monday with Vesna. Will run out before appointment. Pharmacy verified in Epic Patient has been identified by name and [...] No Please review and advise. Kaleb Harrison, LAURA.SUPERVISOR LIVESTOCK YARD 04/09/2018 3:48 PM Signed Former pt of [...] is not on file. Encounter Status:Closed by VESNA HARRISON on 04/09/18 MRI PANC/COMPA WO/W Observed: 03/07/2018 Status: F Source: [place] IVCON 3:49 PM [facility] [place] REPOSITORY * * *Final Report* * * DATE OF EXAM: Mar 07 2018 3:49PM [facility] 0730 - MRI PANC/COMPA WO/W IVCON / [...] NO CHANGES TO SUGGEST PSC, CLINICALLY QUERIED. Breaker Table Worker: PSCB Transcribe Date/Time: Mar 07 2018 4:10P Dictated by : MADELIN AMEZQUITA MD This examination was interpreted and the report reviewed and electronically signed by: BALDEV BOOKER MD on Mar 07 2018 4:54PM EST [id number] PROGRESS Observed: 03/07/2018 Status: COMPLETED Source: [place] 3:35 PM [facility] REPOSITORY HNO ID: [id number] Author: Cecelia () Willi Holt Service: (none) Author Type: Aircraft Layout Worker Type: Progress Notes Filed: 03/07/2018 3:36 PM [...] PM ALDOLASE Collected: 03/06/2018 Status: F Source: [place] 4:27 PM [facility] REPOSITORY TYPE CODE TESTS RESULT OUT OF REFERENCE UNITS RANGE LAB ALD 1.2-7.6 U/L High Aldolase 10.4 Result Comment: This test was developed and its performance characteristics determined by [facility] Pathology and Laboratory Medicine [place] ([facility]). It has not been cleared or approved by the FDA. [facility] is regulated under CLIA as qualified to perform high-complexity testing. This test is used for clinical purposes. It should not be regarded as investigational or for research. Performed By: #### ALD, CRET1, CELSCR #### [facility] [address] [place] [id number] CREATININE Collected: 03/06/2018 Status: F Source: [place] 4:27 PM [facility] REPOSITORY TYPE CODE TESTS RESULT OUT OF [...] Performed By: #### ALD, CRET1, CELSCR #### [facility] [address] [place], [place] [id number] CELIAC SCR W REFLEX Collected: 03/06/2018 Status: F Source: [place] 4:27 PM [facility] REPOSITORY TYPE CODE TESTS RESULT OUT OF REFERENCE UNITS RANGE LAB IGA 78-391 mg/dL IgA 370 LAB TGLUTA <20 Units Transglutaminase IgA 8 Result Comment: Negative : < 20 Units Weak Positive : 20 - 30 Units Moderate Pos to Strong Pos: >30 Units The following results were obtained with the Active Scaler QUANTA Lite h-tTG IgA SU. h-tTG IgA values obtained with different manufacturers' assay methods may not be used interchangeably. The magnitude of th e reported IgA levels cannot be correlated to an endpoint titer. [facility] No serologic evidence of Interpretation No celiac disease. serologic evidence of celiac disease. Performed By: #### ALD, CRET1, CELSCR #### [facility] [address] [place], [place] [address] HEMOGLOBIN A1C Collected: 03/06/2018 Status: F Source: [facility] 4:27 [facility] REPOSITORY TYPE CODE TESTS RESULT OUT OF REFERENCE UNITS RANGE LAB HGBA1C 4.3-5.6 % High Hemoglobin A1c 12.0 Result Comment: [place] [employer] guidelines indicate that patients with HgbA1c in the range 5.7-6.4% are at increased risk for development of diabetes, and intervention by lifestyle modification may be beneficial. HgbA1c greater or equal to 6.5% is considered diagnostic of diabetes. LAB HBA0 mg/dL Est. Average Glucose 298 Result Comment: eAG: (Estimated average glucose) is a calculated value from HgbA1c and is product support representative of the average blood glucose level in the last 2-3 month period. Performed By: #### HBA1C #### [facility] [address] [place], [place] [address] PROGRESS Observed: 03/05/2018 Status: COMPLETED Source: [place] 8:02 AM [facility] REPOSITORY HNO ID: [id number] Author: Cassie Squires) Gladys Service: (none) Author [...] syndrome) previously seeing GI - Myasthenia gravis ([facility]) Seeing Dr. Land-neurology - Pulmonary nodules - [...] as directed 3- 4 times daily. Insulin [place], Disposable, (BD ULTRA-FINE DAYA PEN NEEDLE) 32 [...] As needed based on activity. Dr. Land, [facility] sucralfate (CARAFATE) 1 gram tablet Take 1 [...] MD CNOV Observed: 03/05/2018 Status: COMPLETED Source: [place] 8:00 AM [facility] REPOSITORY Office Visit (FAMPWS) AMARILYS KAISER JR. ([id number]) 1975 M Date Time Provider Department 03/05/18 [...] Dr. Land - Edentulous - Emphysema lung ([facility]) early stages - Fatty liver - Gastroparesis - GERD (gastroesophageal reflux disease) - Hyperlipidemia - Hypertension - IBS (irritable bowel syndrome) previously seeing GI - Myasthenia gravis ([facility]) Seeing Dr. Land-neurology - Pulmonary nodules - Shingles - Tobacco use - Type I diabetes mellitus ([facility]) Seeing Dr. Fam Previous Surgical History PAST [...] as directed 3- 4 times daily. Insulin [place], Disposable, (BD ULTRA-FINE DAYA PEN NEEDLE) 32 [...] As needed based on activity. Dr. Land, [facility] sucralfate (CARAFATE) 1 gram tablet Take 1 [...] Cassie Graham MD Referring Provider: CASSIE GRAHAM) [[id number]] Allergies As of Date: 03/05/2018 Noted Allergy [...] US LEG VEIN DVT UNL VAS LAB [8581504-01] Order #: [id number] FUTURE predniSONE (DELTASONE) 20 mg tabletTake 2 [...] F32.9] INVALID FOR* Hypertension [I10] Diabetic neuropathy ([facility]) [E11.40] More... Asthma [J45.909] GERD (gastroesophageal reflux disease) [K21.9] IBS (irritable bowel syndrome) [K58.9] More... Myasthenia gravis ([facility]) [G70.00] More... Tobacco use [Z72.0] Type I diabetes mellitus ([facility]) [E10.9] More... Hyperlipidemia [E78.5] Prescriptions ordered this [...] 03/05/18 PROGRESS Observed: 03/01/2018 Status: COMPLETED Source: [place] 9:41 AM [facility] REPOSITORY HNO ID: [id number] Author: Lee Mcnamara Service: (none) Author Type: [...] daily. Disp: 400 Each Rfl: 1 Insulin [place], Disposable, (BD ULTRA-FINE DAYA PEN NEEDLE) 32 [...] As needed based on activity. Dr. Land, [facility] Disp: Rfl: ondansetron orally disintegrating (ZOFRAN ODT) [...] no edema RESPIRATORY: No dyspnea : neg RELAY RECORD CLERK: na The remainder of the review of [...] 03/01/2018 CNOV Observed: 03/01/2018 Status: COMPLETED Source: [place] 9:30 AM [facility] [place] REPOSITORY Office Visit (GASTSP) AMARILYS KAISER JRKee ([id number]) 1975 M Date Time Provider Department 03/01/18 9:30 AM DARIO LEE Kay DIOP During your visit today, we recorded the following information about you: Pulse Blood pressure Weight 79/minute 159/99 62.1 kg Lee McnamaraDO 03/01/2018 9:59 AM Signed FOLLOW UP VISIT [...] daily. Disp: 400 Each Rfl: 1 Insulin [place], Disposable, (BD ULTRA-FINE DAYA PEN NEEDLE) 32 [...] As needed based on activity. Dr. Land, [facility] Disp: Rfl: ondansetron orally disintegrating (ZOFRAN ODT) [...] no edema RESPIRATORY: No dyspnea : neg RELAY RECORD CLERK: na The remainder of the review of [...] mellitus (HCC) [E11.49] Order(s):CONSULT TO NEUROMUSCULAR MEDIC [[id number]] Order #: [id number]: 1 CAPSULE ENDOSCOPY SMART [[id number]] Order #: [id number] FUTURE promethazine (PHENERGAN) 25 mg tabletTake 1 [...] 03/01/18 CNOV Observed: 02/26/2018 Status: COMPLETED Source: [place] 8:00 AM [facility] REPOSITORY Office Visit (VASSWS) AMARILYS KAISER JR. ([id number]) 1975 M Date Time Provider Department 02/26/18 8:00 AM JANIE GAITAN During your visit today, we recorded the following information about you: Pulse Blood pressure 102/minute 143/100 Janie Gaitan DO 02/26/2018 9:04 AM Signed VASCULAR SURGERY [...] Complaint: PAD History of Present Illness: Amarilys Alexandrejohn ThomasKee is a 42 year old male referred [...] daily. Disp: 400 Each Rfl: 1 Insulin [place], Disposable, (BD ULTRA-FINE DAYA PEN NEEDLE) 32 [...] As needed based on activity. Dr. Land, [facility] Disp: Rfl: sucralfate (CARAFATE) 1 gram tablet [...] TIME: 7:57 AM Referring Provider: CARI HDZ [[id number]] Allergies As of Date: 02/26/2018 Noted Allergy [...] [I73.9] Order(s):PVR LEG W/EXC COMPA VAS LAB [[id number]] Order #: [id number] FUTURE Prescriptions as of 02/26/2018 Sig: PROMETHAZINE [...] 02/26/18 PROGRESS Observed: 02/26/2018 Status: COMPLETED Source: [place] 7:57 AM [facility] [place] REPOSITORY [facility] ID: [id number] Author: Janie Gaitan Service: (none) Author Type: [...] daily. Disp: 400 Each Rfl: 1 Insulin [place], Disposable, (BD ULTRA-FINE DAYA PEN NEEDLE) 32 [...] As needed based on activity. Dr. Land, [facility] Disp: Rfl: sucralfate (CARAFATE) 1 gram tablet [...] NURSING PROG Observed: 02/13/2018 Status: COMPLETED Source: [place] 6:01 PM [facility] REPOSITORY HNO ID: [id number] Author: Kadeem Delgado Service: (none) Author Type: (none) Type: Nursing Progress Note Filed: 02/13/2018 6:14 PM Note Text: Pt's right arm IV removed at this time. NURSING PROG Observed: 02/13/2018 Status: COMPLETED Source: [place] 4:45 PM [facility] REPOSITORY HNO ID: [id number] Author: Kadeem Delgado Service: (none) Author Type: (none) Type: Nursing Progress Note Filed: 02/13/2018 6:12 PM Note Text: Pt's blood pressure 176/108 at this time. Pt also complains of 7/10 pain in abdomen RUQ. Pt's RUQ soft and nontender on palpation. Dr. Alfonso aware. Orders received for oxycodone 5mg PO [...] SURGICAL PATHOLOGY Observed: 02/13/2018 Status: F Source: [place] 4:00 PM [facility] REPOSITORY Specimen originated from [facility] Specimen #: [id number] Submitting Physician: ALFONSO EMERY MD FINAL DIAGNOSIS [...] for quantitative iron. Gross examination performed at [facility], [address] [place] [address] 02/13/2018 9:50:40 PM Date of Report: 02/14/2018 Date of Procedure: 02/13/2018 Date of Receipt: 02/13/2018 Submitted by: ALFONSO EMERY MD Location: [facility] Diagnostic interpretation performed at [place] [address]. BRIEF OP NOT Observed: 02/13/2018 Status: COMPLETED Source: [place] 3:56 PM [facility] [place] REPOSITORY HNO ID: [id number] Author: Alfonso Emery Service: Radiology Author Type: Physician Type: Brief Op Note Filed: 02/13/2018 3:57 PM Note Text: OPERATIVE/PROCEDURE REPORT LOG ID: [id number] SURGERY/PROCEDURE DATE: 02/13/2018 INCISION/PROCEDURE START TIME: 3:23 PM INCISION CLOSE/PROCEDURE END TIME: 3:36 PM SURGEON(S)/PROCEDURALIST(S) AND ENGLISH INSTRUCTOR(S): Surgeon(s) and Role: * Alfonso Emery - [...] Alfonso Emery MD PATIENT NAME: Amarilys Kaiser JrKee DATE: February 13, 2018 TIME: 3:56 PM PAGER/CONTACT #: MITCH TRANSJUG LIVER BX Observed: 02/13/2018 Status: F Source: [place] W/PRESS 3:36 PM [facility] REPOSITORY * * *Final Report* * * DATE OF EXAM: Feb 13 2018 3:36PM SARAHI Cruz - IR TRANSJUG LIVER BX W/PRESS / [...] Loss: Minimal ATTENDING RADIOLOGIST: Alfonso Emery M.D. ENGLISH INSTRUCTOR: None The procedure was performed by the: attending radiologist, without an administrative sales assistant. The attending radiologist performed the following procedural activities: Entire procedure IMPRESSION: 1. SUCCESSFUL TRANSJUGULAR LIVER BIOPSY DESCRIBED ABOVE. 2. NO EVIDENCE OF PORTAL HYPERTENSION. CORRECTED SINUSOIDAL GRADIENT IS CALCULATED TO BE MEAN OF 4 MM HG. Breaker Table Worker: MORIS Transcribe Date/Time: Feb 13 2018 6:56P Dictated by : ALFONSO EMERY MD This examination was interpreted and the report reviewed and electronically signed by: ALFONSO EMERY MD on Feb 13 2018 7:00PM EST [id number] HISTORY PHYSICAL Observed: 02/13/2018 Status: COMPLETED Source: [place] 2:43 PM [facility] [place] REPOSITORY HNO ID: [id number] Author: Alfonso Emery Service: Radiology Author Type: [...] As needed based on activity. Dr. Land, [facility] Yes ondansetron orally disintegrating (ZOFRAN ODT) 8 mg disintegrating tablet Take 8 mg by mouth as needed. 02/12/2018 at 1600 Yes sucralfate (CARAFATE) 1 gram tablet Take 1 g by mouth four times daily. Yes lancets (TRUEPLUS LANCETS) 33 gauge misc Use as directed 3- 4 times daily. Insulin [place], Disposable, (BD ULTRA-FINE DAYA PEN NEEDLE) 32 [...] February 13, 2018 TIME: 2:43 PM PAGER: [phone] PT ED Observed: 02/13/2018 Status: COMPLETED Source: [facility] 2:36 PM [facility] REPOSITORY HNO ID: [id number] Author: Whitney (Rn) ERICH Ornelas Service: Nursing Author Type: Registered [...] Signed By: Whitney Ornelas RN In Department: [place] [address] NURSING PROG Observed: 02/13/2018 Status: COMPLETED Source: [place] 12:36 PM [facility] REPOSITORY HNO ID: [id number] Author: Ann RamseyRn) ERICH Verma Service: Nursing Author Type: Registered Nurse Type: Nursing Progress Note Filed: 02/13/2018 1:02 PM Note Text: Nursing Progress Note Amarilys Víctor Kaiser Jr. [id number] 1201:Brought back to recovery for pre procedure [...] monitor. 1245: Second call placed to patient riddee dee for post procedure, unable to reach, voice mail left to call back. 1300: Dr aCmpbell at bedside and updated on patient blood sugar and BP. Waiting for further instruction. 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 This note was completed by: Ann Verma RN NURSING PROG Observed: 02/06/2018 Status: COMPLETED Source: [place] 11:02 AM [facility] REPOSITORY HNO ID: [id number] Author: Kaitlynn RamseyRn) English RN Service: (none) Author Type: Registered Nurse Type: Nursing Progress Note Filed: 02/06/2018 11:04 AM Note Text: Pre-procedure phone calls: Contacted Amarilys Víctor Kaiser Jr. and confirmed appt. for his transjugular liver biopsy scheduled on 02/13, at [facility]. I will be providing you with [...] may need to be signed. Arrive to [facility] ([facility]) Admitting/Registration by 1100. Then proceed to desk QB-1 ([facility]) and check in for your procedure. Your anticipated procedure start time will be between 1230 AND 1330. Gem Stone Cutter/Transportation: How will you be arriving for your procedure? private car. If you will be arriving at [facility] via ambulance or public transportation, please call to discuss. You will need a responsible adult to accompany you to and from the procedure. Your regional driver is required to stay with you [...] you... What is your arrival time to [facility]? 1100 What time do you stop eating food? MN What time can you have clears until? 1030 Tell me how you will be taking your medications the morning of your procedure? Will take all medications except insulin If you have any questions please call [phone] CNPTOUTREACH Observed: 02/06/2018 Status: COMPLETED Source: [place] 12:00 AM [facility] REPOSITORY Patient Outreach (FAMPST) JOBAMARILYSRUBENS Renee JR. ([id number]) 1975 M Date Time Provider Department 02/06/18 CASSIE GRAHAM) ELLIE During your visit today, we recorded the [...] Assessed Visit Diagnosis:Medication management [Z79.899] Order(s):HGB A1C [HYZVL9C] Order #: [id number] FUTURE Prescriptions as of 02/06/2018 Sig: ALBUTEROL [...] 03/09/18 HOSP Observed: 01/08/2018 Status: COMPLETED Source: [place] 12:00 AM [facility] REPOSITORY Patient:Amarilys Kaiser Jr. MRN: <[id number]> Height:5' 6(1.676 m) Weight:No patient weight recorded [...] test strip lancets (TRUEPLUS LANCETS) 33 gauge [facility] Insulin [place], Disposable, (BD ULTRA-FINE DAYA PEN NEEDLE) 32 [...] IBS (irritable bowel syndrome) [K58.9] Myasthenia gravis (HCC) [G70.00] Tobacco use [Z72.0] Type I diabetes mellitus (HCC) [E10.9] Hyperlipidemia [E78.5] Allergies: Allergies have not been reviewed in the past 30 days. Lab Values No results within the last 30 days for the following basenames: K,HCT Progress Notes ([facility]): Cassie Graham MD 01/26/2018 1:18 PM Signed Med list updated. No changes to regimen. Progress Notes ([facility]): Racheal Perdomo Ma 01/23/2018 8:50 AM Signed Message from [employer]: Amarilys Kaiser Jr. would like a refill of the following medications: promethazine (PHENERGAN) 25 mg tablet [Kadeem Sim MD] Preferred pharmacy: [facility] [address] [place] [phone] [facility] [phone] 1812 Comment: Medication renewals requested in this message routed separately: Omeprazole 40 mg capsule [Chloe Batista RN TRANSMISSION REBUILDER.SUPERVISOR LIVESTOCK YARD] metoprolol tartrate, short acting, (LOPRESSOR) 50 mg [...] 33 gauge misc [Rayo Fam MD] Insulin [place], Disposable, (BD ULTRA-FINE DAYA PEN NEEDLES) 32 gauge x 5/32 ndle [Rayo Fam MD] gabapentin (NEURONTIN) 300 mg capsule [Rayo Fam MD] Racheal Perdomo Ma 01/23/2018 8:50 AM Signed Patient last seen 11/08/2016. Racheal Perdomo Ma PROGRESS Observed: 01/03/2018 Status: COMPLETED Source: [place] 11:39 AM [facility] REPOSITORY O ID: [id number] Author: Patricia Grimm Ga Service: (none) Author Type: (none) Type: Progress [...] Completed: Chest and Liver SIGNED BY: Patricia Grimm Ct January 03, 2018 11:[address] LIVER W IVCON Observed: 01/03/2018 Status: F Source: [place] 8:52 AM [facility] REPOSITORY * * *Final Report* * * DATE OF EXAM: Jan 03 2018 8:52AM [facility] 0548 - CT LIVER W IVCON / [...] CT evidence of steatosis. Patent hepatic vasculature. Breaker Table Worker: MORIS Transcribe Date/Time: Jan 03 2018 9:14A Dictated by : MEGAN SIMON MD This examination was interpreted and the report reviewed and electronically signed by: MEGAN SIMON MD on Jan 03 2018 9:25AM EST [id number] CT CHEST WO IVCON Observed: 01/03/2018 Status: F Source: [place] 8:52 AM [facility] REPOSITORY * * *Final Report* * * DATE OF EXAM: Jan 03 2018 8:52AM [facility] 0541 - CT CHEST WO IVCON / [...] to separately dictated report for abdominal findings. Breaker Table Worker: PSCB Transcribe Date/Time: Jan 04 2018 8:07A Dictated by : MALACHI LARSON MD This examination was interpreted and the report reviewed and electronically signed by: MALACHI LARSON MD on Jan 04 2018 8:11AM EST [id number] Collected: 12/26/2017 Status: F Source: [place] 9:46 AM [facility] REPOSITORY TYPE CODE TESTS RESULT OUT OF RANGE REFERENCE UNITS LAB PSEC 9.7-13.0 sec Low PT Sec 9.4 LAB INR 0.9-1.3 Low PT INR <0.9 Result Comment: Vitamin K Antagonist (VKA) Therapeutic Range: INR 2 to 3 (Target INR of 2.5) Note: For patients treated with VKA drugs, such as warfarin, the [place] [employer] 2012 Guideline recommends [...] GH, et al. Chest 2012, 141:7S-47S Magy AYALA et al. [facility] 2017, 70: 252-289 Performed By: #### PT, CBC, CERULO, AHAVT, GGT, IRON, AAT, HFP, FERR, ANAS, SMOOTH, DOROTEO #### [facility] [address] [place], [place] [address] CBC Collected: 12/26/2017 Status: F Source: [place] 9:46 AM [facility] REPOSITORY TYPE CODE TESTS RESULT OUT OF [...] AAT, HFP, FERR, ANAS, SMOOTH, DOROTEO #### [place] [address] CERULOPLASMIN Collected: 12/26/2017 Status: F Source: [place] 9:46 AM [facility] REPOSITORY TYPE CODE TESTS RESULT OUT OF REFERENCE UNITS RANGE LAB CERULO 15-30 mg/dL Ceruloplasmin 20 Performed By: #### PT, CBC, CERULO, AHAVT, GGT, IRON, AAT, HFP, FERR, ANAS, SMOOTH, DOROTEO #### [place] [address] HEPATITIS A AB TOTAL Collected: 12/26/2017 Status: F Source: [place] 9:46 AM [facility] REPOSITORY TYPE CODE TESTS RESULT OUT OF RANGE REFERENCE UNITS LAB AHAVT Negative Abnormal Hepatitis A Ab Positive Alert Total Performed By: #### PT, CBC, CERULO, AHAVT, GGT, IRON, AAT, HFP, FERR, ANAS, SMOOTH, DOROTEO #### [place] [address] GGT Collected: 12/26/2017 Status: F Source: [place] 9:46 AM [facility] REPOSITORY TYPE CODE TESTS RESULT OUT OF RANGE REFERENCE UNITS LAB GGT 10-70 U/L High GGT 307 Performed By: #### PT, CBC, CERULO, AHAVT, GGT, IRON, AAT, HFP, FERR, ANAS, SMOOTH, DOROTEO #### [place] [address] IRON AND TIBC Collected: 12/26/2017 Status: F Source: [place] 9:46 AM [facility] REPOSITORY TYPE CODE TESTS RESULT OUT OF REFERENCE UNITS RANGE LAB IRN 41-186 ug/dL Low Iron 28 LAB TIBC 232-386 ug/dL Low TIBC 212 LAB SAT 15-57 % Low Transferrin Saturatn 13 Performed By: #### PT, CBC, CERULO, AHAVT, GGT, IRON, AAT, HFP, FERR, ANAS, SMOOTH, DOROTEO #### [place] [address] ALPHA 1 ANTITRYPSIN Collected: 12/26/2017 Status: F Source: [place] 9:46 AM [facility] REPOSITORY TYPE CODE TESTS RESULT OUT OF REFERENCE UNITS RANGE LAB AAT 90-200 mg/dL Alpha 1 antitrypsin 133 Performed By: #### PT, CBC, CERULO, AHAVT, GGT, IRON, AAT, HFP, FERR, ANAS, SMOOTH, DOROTEO #### [facility] [address] [place] [address] HEPATIC FUNCTN PANEL Collected: 12/26/2017 Status: F Source: [place] 9:46 [facility] REPOSITORY TYPE CODE TESTS RESULT OUT OF [...] AAT, HFP, FERR, ANAS, SMOOTH, DOROTEO #### [facility] [address] [place] [address] FERRITIN Collected: 12/26/2017 Status: F Source: [place] 9:46 [facility] REPOSITORY TYPE CODE TESTS RESULT OUT OF REFERENCE UNITS RANGE LAB FERR 30.3-565.7 ng/mL Ferritin 264.6 Performed By: #### PT, CBC, CERULO, AHAVT, GGT, IRON, AAT, HFP, FERR, ANAS, SMOOTH, DOROTEO #### [facility] [address] [place] [address] MAURO Collected: 12/26/2017 Status: F Source: [place] 9:46 [facility] REPOSITORY TYPE CODE TESTS RESULT OUT OF REFERENCE UNITS RANGE LAB ANAQL Negative MAURO Negative by EIA, Qual LAB ANAEIA OD Ratio MAURO 0.3 by EIA Result Comment: OD Ratio is interpreted as follows: Negative <1.0 Positive >=1.0 Performed By: #### PT, CBC, CERULO, AHAVT, GGT, IRON, AAT, HFP, FERR, ANAS, SMOOTH, DOROTEO #### [facility] [address] [place], [place] [address] SMOOTH MUSCLE AB Collected: 12/26/2017 Status: F Source: [facility] 9:46 AM [facility] REPOSITORY TYPE CODE TESTS RESULT OUT OF REFERENCE UNITS RANGE LAB SMOOTH Negative Smooth Negative Muscle Ab Pnl Result Comment: Normal range : negative at a 1:20 serum dilution. Performed By: #### PT, CBC, CERULO, AHAVT, GGT, IRON, AAT, HFP, FERR, ANAS, SMOOTH, DOROTEO #### [facility] [address] [place], [place] [address] MITOCHONDRIAL AB PNL Collected: 12/26/2017 Status: F Source: [facility] 9:46 AM [facility] REPOSITORY TYPE CODE TESTS RESULT OUT OF REFERENCE UNITS RANGE LAB DOROTEO Negative Mitochondrial Ab Pnl Negative Result Comment: Normal range : negative at a 1:20 serum dilution. Performed By: #### PT, CBC, CERULO, AHAVT, GGT, IRON, AAT, HFP, FERR, ANAS, SMOOTH, DOROTEO #### [facility] [address] [place], [place] [address] PROGRESS Observed: 12/26/2017 Status: COMPLETED Source: [facility] 8:23 AM [facility] REPOSITORY HNO ID: [id number] Author: Adrien Parada Service: (none) Author Type: [...] liver enzymes since 2013. US liver in 2015 was unremarkable. Remote panel was negative. Last [...] times daily, as directed. DX: E11.40 Insulin [place], Disposable, (BD ULTRA-FINE DAYA PEN NEEDLES) 32 [...] As needed based on activity. Dr. Land, [facility] cyclobenzaprine (FLEXERIL) 10 mg tablet Take 1 [...] up is complete, 4-6 weeks Jr Gomez APRN.ALFREDO See the above note for details. I saw and evaluated the patient with ALFREDO Gomez. I agree with the findings and the plan of care as documented in the note. Adrien Steel MD CNOV Observed: 12/26/2017 Status: COMPLETED Source: [facility] 8:10 AM [facility] REPOSITORY Office Visit (GASTA5) AMARILYS KAISER JR. ([id number]) 1975 M Date Time Provider Department 12/26/17 [...] liver enzymes since 2013. US liver in 2015 was unremarkable. Remote panel was negative. Last [...] times daily, as directed. DX: E11.40 Insulin [place], Disposable, (BD ULTRA-FINE DAYA PEN NEEDLES) 32 [...] As needed based on activity. Dr. Land, [facility] cyclobenzaprine (FLEXERIL) 10 mg tablet Take 1 [...] Adrien Steel MD Referring Provider: CASSIE GRAHAM) [[id number]] Allergies As of Date: 12/26/2017 Noted Allergy Reaction LEVAQUIN (LEVOFLOXACIN) 12/07/2017 14 - Other: See Comments Comments: Aching in joints LISINOPRIL 11/14/2017 14 - Other: See Comments Comments: Lip swelling, possible angioedema, face swelling LOSARTAN 12/07/2017 7 - Swelling Comments: Face swelling NICODERM 10/03/2016 2 - Rash REGLAN (METOCLOPRAMIDE HCL) 07/26/2016 4 - Hives Date Reviewed: 12/26/2017 Reviewed by: Teepree Winn JAVA JSF DEVELOPER - Fully Assessed Reason for Visit: New [...] Order(s):HEP A AB TOTAL [SQAHAVT] Order #: [id number] FUTURE MAURO BLOOD [SQANAS] Order #: [id number] FUTURE OVBVE-0-LSNJRUSZP BL [SQAAT] Order #: [id number] FUTURE SMOOTH MUSCLE AB PNL SCRN [SQSMOOTH] Order #: [id number] FUTURE IRON + TIBC [SQIRON] Order #: [id number] FUTURE FERRITIN BLD [SQFERR] Order #: [id number] FUTURE CERULOPLASMIN BLD [SQCERULO] Order #: [id number] FUTURE MITOCHONDRIAL AB PNL SCRN [SQMITO] Order #: [id number] FUTURE GGT BLD [SQGGT] Order #: [id number] FUTURE HEPATIC FUNCTION PNL [SQHFP] Order #: [id number] FUTURE PROTHROMBIN TIME/PT [SQPT] Order #: [id number] FUTURE CBC [SQCBC] Order #: [id number] FUTURE CT LIVER W IVCON [5354404] Order #: [id number] FUTURE iv contrast (will be provided with [...] CONSULT TO COLO-RECTAL SURGERY [] Order #: [id number]: 1 traMADol (ULTRAM) 50 mg tabletTake 1 tablet by mouth twice daily for 7 days.Disp: 14 tabletRfl: 0 MANOMETRY ANORECTAL [[id number]] Order #: [id number] FUTURE Prescriptions as of 12/26/2017 Sig: IV [...] 12/26/17 PROGRESS Observed: 12/22/2017 Status: COMPLETED Source: [facility] 9:21 AM [facility] [place] REPOSITORY HNO ID: [id number] Author: Cari Hdz Service: (none) Author Type: [...] Dr. Land - Edentulous - Emphysema lung ([facility]) early stages - Fatty liver - Gastroparesis - GERD (gastroesophageal reflux disease) - Hyperlipidemia - Hypertension - IBS (irritable bowel syndrome) previously seeing GI - Myasthenia gravis ([facility]) Seeing Dr. Land-neurology - Pulmonary nodules - [...] tablet TAKE 1 TABLET AT BEDTIME Insulin [place], Disposable, (BD ULTRA-FINE DAYA PEN NEEDLES) 32 [...] As needed based on activity. Dr. Land, [facility] metoprolol tartrate, short acting, (LOPRESSOR) 50 mg [...] Objective: Patient presents to clinic ambulating in [facility] Constitutional: Pt is a well developed [...] DPM PROGRESS Observed: 12/22/2017 Status: COMPLETED Source: [facility] 9:01 AM [facility] REPOSITORY O ID: [id number] Author: Gabriella Luke MA Service: (none) Author [...] 212 mg/dL Patient is a smoker. Gabriella Sweet CNOV Observed: 12/22/2017 Status: COMPLETED Source: [facility] 8:40 AM [facility] REPOSITORY Office Visit (PODIWS) AMARILYS KAISER JR. ([id number]) 1975 M Date Time Provider Department 12/22/17 8:40 AM CARI HDZ During your visit today, we recorded the following information about you: Gabriella Luke MA 12/22/2017 11:56 AM Signed AMB ROOMING INTAKE [...] 212 mg/dL Patient is a smoker. Gabriella Hdz DPM 12/29/2017 12:58 PM Addendum Consultation [...] tablet TAKE 1 TABLET AT BEDTIME Insulin [place], Disposable, (BD ULTRA-FINE DAYA PEN NEEDLES) 32 [...] As needed based on activity. Dr. Land, [facility] metoprolol tartrate, short acting, (LOPRESSOR) 50 mg [...] Objective: Patient presents to clinic ambulating in [facility] Constitutional: Pt is a well developed [...] were ordered 5. F/u in 3 months ZAYDA Brody Ma 12/22/2017 9:34 AM Signed Diabetes [...] (or decreased sensation in your feet) a master deputy sheriff court security should always cut your toenails. ? Be [...] Go to your health care provider or master deputy sheriff court security to treat these conditions. Janay Méndez [address] [facility] [address] PH: [phone] [place] [address] [facility] [address], [facility] [address] PH: [phone] [place] [address] [facility] [address] PH: [phone] [place] [address] [facility] [address] PH: [phone] or [phone] [place] [address] [address] , [facility] [address] PH: [phone] [place] [address] [facility] [address] PH: [phone] Referring Provider: SELF [200] Allergies As of [...] (HCC) [E10.21] Order(s):DIAB SHOE FOR DENSITY INSERT [[id number]] Order #: [id number] PVR ANK PRESS COMPA VAS LAB [8585380] Order #: [id number] FUTURE Prescriptions as of 12/22/2017 Sig: INSULIN [...] (irritable bowel syndrome) [K58.9] More... Myasthenia gravis ([facility]) [G70.00] More... Tobacco use [Z72.0] Type I [...] (or decreased sensation in your feet) a master deputy sheriff court security should always cut your toenails. ? Be [...] Go to your health care provider or master deputy sheriff court security to treat these conditions. Janay Méndez [address] [facility] [address] PH: [phone] [place] [address] [facility] [address], [facility] [address] PH: [phone] [place] [address] [facility] [address] PH: [phone] [place] [address] [facility] [address] PH: [phone] or [phone] [place] [address] [facility] [address] PH: [phone] [place] [address] [facility] [address] PH: [phone] Encounter Status:Closed by CARI HDZ DPM on 12/22/17 PROGRESS Observed: 12/22/2017 Status: COMPLETED Source: [facility] 8:24 AM [facility] REPOSITORY HNO ID: [id number] Author: Angelique (Rt) Willi Eagle Service: (none) Author Type: Aircraft Layout Worker Type: Progress Notes Filed: 12/22/2017 8:24 AM [...] 3V AP/LAT/OBL Observed: 12/22/2017 Status: F Source: [facility] 8:22 AM [facility] REPOSITORY * * *Final Report* * * [...] abnormalities are seen. IMPRESSION: Negative bilateral feet. Breaker Table Worker: MORIS Transcribe Date/Time: Dec 22 2017 3:40P Dictated by : MADELIN BLOOM MD This examination was interpreted and the report reviewed and electronically signed by: MADELIN BLOOM MD on Dec 22 2017 3:40PM EST [id number] PROGRESS Observed: 12/21/2017 Status: COMPLETED Source: [facility] 11:57 AM [facility] REPOSITORY HNO ID: [id number] Author: Lissette Parikh LPN Service: (none) Author Type: (none) Type: Progress Notes Filed: 12/21/2017 1:13 PM Note Text: 42 year old male here for INACTIVATED INFLUENZA VACCINE. 1203-4978 Season Patient is identified by name and date of : Yes [] CONTRAINDICATIONS color enhanced section Age less than 6 months? No Allergy to eggs, chicken, chicken feathers, or chicken dander? No Allergy to thimerosal (a preservative) or formaldehyde, gelatin? No History of severe reaction to any vaccine component or a previous dose of influenza vaccination? 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 Yes See immunization activity in [facility] for details of immunizations adminstered today. Patient age: [age] year old [place] 0209-2521 Flu Season 6-35 months old: Fluzone 0.25 [...] time. PROGRESS Observed: 12/21/2017 Status: COMPLETED Source: [facility] 11:01 AM [facility] REPOSITORY HNO ID: [id number] Author: Bere Montgomery) Podlogar Service: (none) Author [...] and depression - Asthma - Diabetic neuropathy ([facility]) Seeing Dr. Land - Edentulous - Emphysema lung ([facility]) early stages - Fatty liver - Gastroparesis - GERD (gastroesophageal reflux disease) - Hyperlipidemia - Hypertension - IBS (irritable bowel syndrome) previously seeing GI - Myasthenia gravis ([facility]) Seeing Dr. Land-neurology - Pulmonary nodules - Shingles - Tobacco use - Type I diabetes mellitus ([facility]) Seeing Dr. Fam ALLERGIES Levaquin [Levofloxacin]; Lisinopril; [...] times daily, as directed. DX: E11.40 Insulin [place], Disposable, (BD ULTRA-FINE DAYA PEN NEEDLES) 32 [...] As needed based on activity. Dr. Land, [facility] cyclobenzaprine (FLEXERIL) 10 mg tablet Take 1 [...] 3 YRS PLUS + IM Bere Podlogar, TRANSMISSION REBUILDER.SUPERVISOR LIVESTOCK YARD Prescription instructions reviewed with patient as applicable. [...] 30 minutes in counseling regarding diabetic teacing. SALLIE Observed: 12/21/2017 Status: COMPLETED Source: [facility] 11:00 AM [facility] REPOSITORY [facility] AMARILYS KAISER JR. ([id number]) 1975 M Date Time Provider Department 12/21/17 11:00 AM BERE VALLE (ALFREDO) ALEX During your visit today, we recorded [...] syndrome) previously seeing GI - Myasthenia gravis ([facility]) Seeing Dr. Land-neurology - Pulmonary nodules - Shingles - Tobacco use - Type I diabetes mellitus ([facility]) Seeing Dr. Fam ALLERGIES Levaquin [Levofloxacin]; Lisinopril; [...] times daily, as directed. DX: E11.40 Insulin [place], Disposable, (BD ULTRA-FINE DAYA PEN NEEDLES) 32 [...] As needed based on activity. Dr. Land, [facility] cyclobenzaprine (FLEXERIL) 10 mg tablet Take 1 [...] 3 YRS PLUS + IM Bere Podlogar, TRANSMISSION REBUILDER.SUPERVISOR LIVESTOCK YARD Prescription instructions reviewed with patient as applicable. [...] old male here for INACTIVATED INFLUENZA VACCINE. 4251-3197 Season Patient is identified by name and date of : Yes [] CONTRAINDICATIONS color enhanced section Age less than 6 months? No Allergy to eggs, chicken, chicken feathers, or chicken dander? No Allergy to thimerosal (a preservative) or formaldehyde, gelatin? No History of severe reaction to any vaccine component or a previous dose of influenza vaccination? 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 Yes See immunization activity in [facility] for details of immunizations adminstered today. Patient age: [age] year old For [place] 7514-2838 Flu Season 6-35 months old: Fluzone 0.25 [...] one months time. Referring Provider: CASSIE GRAHAM) [[id number]] Allergies As of Date: 12/21/2017 Noted Allergy [...] QUADRIVALENT AGE 3 YRS PLUS + IM [07418TUH] Order #: [id number] insulin aspart U-100 (NOVOLOG FLEXPEN U-100 INSULIN) [...] 12/21/17 PROGRESS Observed: 12/18/2017 Status: COMPLETED Source: [facility] 3:28 PM [facility] REPOSITORY O ID: [id number] Author: Rayo Fam Service: (none) Author Type: [...] Last feet exam: October 2017 + neuropathy, Bottle Packer: 2014 PAST MEDICAL HISTORY Diagnosis Date - Anxiety and depression - Asthma - Diabetic neuropathy (HCC) Seeing Dr. Land - Edentulous - Emphysema lung (HCC) early stages - Fatty liver - Gastroparesis - GERD (gastroesophageal reflux disease) - Hyperlipidemia - Hypertension - IBS (irritable bowel syndrome) previously seeing GI - Myasthenia gravis ([facility]) Seeing Dr. Land-neurology - Pulmonary nodules - [...] E11.40 Disp: 270 capsule Rfl: 0 Insulin [place], Disposable, (BD ULTRA-FINE DAYA PEN NEEDLES) 32 [...] As needed based on activity. Dr. Land, [facility] Disp: Rfl: metoprolol tartrate, short acting, (LOPRESSOR) [...] 2017 CNOV Observed: 12/18/2017 Status: COMPLETED Source: [facility] 2:25 PM [facility] REPOSITORY Office Visit (ENDMED) JOBAMARILYS Víctor MALAGON ([id number]) 1975 M Date Time Provider Department 12/18/17 [...] Last feet exam: October 2017 + neuropathy, Bottle Packer: 2014 PAST MEDICAL HISTORY Diagnosis Date - Anxiety and depression - Asthma - Diabetic neuropathy (HCC) Seeing Dr. Land - Edentulous - Emphysema lung (HCC) early stages - Fatty liver - Gastroparesis - GERD (gastroesophageal reflux disease) - Hyperlipidemia - Hypertension - IBS (irritable bowel syndrome) previously seeing GI - Myasthenia gravis ([facility]) Seeing Dr. Land-neurology - Pulmonary nodules - [...] E11.40 Disp: 270 capsule Rfl: 0 Insulin [place], Disposable, (BD ULTRA-FINE DAYA PEN NEEDLES) 32 [...] As needed based on activity. Dr. Land, [facility] Disp: Rfl: metoprolol tartrate, short acting, (LOPRESSOR) [...] [B35.1] Order(s):CONSULT TO PODIATRY [9034] Order #: [id number]: 1 DIABETES EDUCATION (CDE) (X20) [6228428] Order #: [id number]: 1 Prescriptions as of 12/18/2017 Sig: MUPIROCIN [...] METABOLIC PANEL Collected: 12/07/2017 Status: F Source: [facility] 1:47 PM [facility] REPOSITORY TYPE CODE [...] mg/dL Glucose High 312 Result Comment: The [place] [employer] Association (ADA) provides guidance for cutoff [...] Standards of Medical Care in Diabetes 2016, [place] [employer]. Diabetes Care. 2016.39(Suppl 1). LAB [...] GFR. Performed By: #### CMP, NTBNP #### [facility] [address] [place], [place] [address] NT PRO BNP Collected: 12/07/2017 Status: F Source: [facility] 1:47 PM [facility] REPOSITORY TYPE CODE TESTS RESULT OUT OF REFERENCE UNITS RANGE LAB PBNP <125 pg/mL High PRO B Natr 2137 Peptide Performed By: #### CMP, NTBNP #### [facility] [address] [place], [place] [address] [phone] PROGRESS Observed: 12/07/2017 Status: COMPLETED Source: [place] 1:12 PM [facility] REPOSITORY HNO ID: [id number] Author: Bere (Wearing Apparel Folder) Podlogar Service: (none) Author Type: Nurse Practitioner [...] syndrome) previously seeing GI - Myasthenia gravis ([facility]) Seeing Dr. Land-neurology - Shingles - Tobacco use - Type I diabetes mellitus (HCC) Seeing Dr. Fam ALLERGIES Lisinopril; Nicoderm; Reglan [...] times daily, as directed. DX: E11.40 Insulin [place], Disposable, (BD ULTRA-FINE DAYA PEN NEEDLES) 32 [...] As needed based on activity. Dr. Land, [facility] cyclobenzaprine (FLEXERIL) 10 mg tablet Take 1 [...] with red streaking, verbalizes understanding Bere Valle APRN.CNP Prescription instructions reviewed with patient as applicable. Patient advised if symptoms do not improve or if symptoms worsen sooner, to contact their primary care physician. Potential red flag symptoms discussed with the patient. Reviewed appropriate action plan to take if red flag symptoms occur. Patient agreeable to treatment plan. CNOV Observed: 12/07/2017 Status: COMPLETED Source: [place] 1:00 PM [facility] REPOSITORY Office Visit (FAMPWS) AMARILYS KAISER JR. ([id number]) 1975 M Date Time Provider Department 12/07/17 1:00 PM [facility] your visit today, we recorded the following information about you: Temperature Pulse Respiration Blood pressure 98.6 degrees 64/minute 16/minute 150/82 Weight 62.6 kg Bere Valle APRN.CNP 12/07/2017 3:30 PM Signed 12/07/2017 Patient presents [...] and depression - Asthma - Diabetic neuropathy ([facility]) Seeing Dr. Land - Edentulous - Emphysema lung ([facility]) early stages - Fatty liver - Gastroparesis - GERD (gastroesophageal reflux disease) - Hyperlipidemia - Hypertension - IBS (irritable bowel syndrome) previously seeing GI - Myasthenia gravis ([facility]) Seeing Dr. Land-neurology - Shingles - Tobacco use - Type I diabetes mellitus ([facility]) Seeing Dr. Fam ALLERGIES Lisinopril; Nicoderm; Reglan [...] times daily, as directed. DX: E11.40 Insulin [place], Disposable, (BD ULTRA-FINE DAYA PEN NEEDLES) 32 [...] As needed based on activity. Dr. Land, [facility] cyclobenzaprine (FLEXERIL) 10 mg tablet Take 1 [...] with red streaking, verbalizes understanding Bere Valle APRN.CNP Prescription instructions reviewed with patient as applicable. [...] swelling notify office Referring Provider: CASSIE GRAHAM) [[id number]] Allergies As of Date: 12/07/2017 Noted Allergy [...] F32.9] INVALID FOR* Hypertension [I10] Diabetic neuropathy ([facility]) [E11.40] More... Asthma [J45.909] GERD (gastroesophageal reflux disease) [K21.9] IBS (irritable bowel syndrome) [K58.9] More... Myasthenia gravis ([facility]) [G70.00] More... Tobacco use [Z72.0] Type I diabetes mellitus ([facility]) [E10.9] More... Hyperlipidemia [E78.5] Other instructions from your clinician: If you start having increased swelling notify office Medications Discontinued During This Encounter cefADROxil (DURICEF) 500 mg capsule 11/30/2017 12/07/2017 Class: Med Update Si capsules twice daily for 7 days. Disc: Course of therapy completed Follow-up and Disposition History Recorded Encounter Status:Closed by MANUELLOGBERE DAMICO CNP on 12/07/17 CNOV Observed: 11/30/2017 Status: COMPLETED Source: [place] 10:40 AM [facility] REPOSITORY Office Visit (FAMPWS) AMARILYS KAISER JR. ([id number]) 1975 M Date Time Provider Department 11/30/17 [...] Discharge Follow up.. Patient was admitted to [facility] on 11/23 and discharged on 11/26 [...] below: TRANSITION CARE MANAGEMENT (TCM) INITIAL CONTACT [employer] Out[facility] ? Provider Action/FYI: Patient's night time [...] is currently only available to locations [employer] [facility] [employer] [place]. Beginning December 05, patient discharge date and Outreach Attempt documentation will populate here automatically. ? No flowsheet data found. ? SUMMARY: -Pt discharged from [facility] on 11/26/17. -Admitted for: Acute MSSA [...] Yes ? Medical records from recent hospitalization: [facility] Since discharge, patient took single dose [...] times daily, as directed. DX: E11.40 Insulin [place], Disposable, (BD ULTRA-FINE DAYA PEN NEEDLES) 32 [...] As needed based on activity. Dr. Land, [facility] cyclobenzaprine (FLEXERIL) 10 mg tablet Take 1 [...] COMP METABOLIC PANEL - NT PRO BNP Cassei Graham MD Referring Provider: SELF [200] Allergies [...] polyneuropathy (HCC) [E10.42] KADIE (acute kidney injury) ([facility]) [N17.9] Hospital discharge follow-up [Z09] Scrotal edema [N50.89] Bilateral lower extremity edema [R60.0] Order(s):cefADROxil (DURICEF) 500 mg capsule2 capsules twice daily for 7 days.Disp: Rfl: COMP METABOLIC PANEL [SQCMP] Order #: [id number] FUTURE NT PRO BNP [SQNTBNP] Order #: [id number] FUTURE Prescriptions as of 11/30/2017 Sig: MUPIROCIN [...] 11/30/17 PROGRESS Observed: 11/30/2017 Status: COMPLETED Source: [facility] 10:26 AM [facility] REPOSITORY HNO ID: [id number] Author: Cassie Squires) Gladys Service: (none) Author Type: Physician Type: Progress Notes Filed: 11/30/2017 11:12 AM Note Text: Chief Complaint No chief complaint on file. HPI Amarilys Kaiser Jr. is a 42 year old male who presents here today for Hospital Discharge Follow up.. Patient was admitted to [facility] on 11/23 and discharged on 11/26 [...] below: TRANSITION CARE MANAGEMENT (TCM) INITIAL CONTACT [employer] Outreach ? Provider Action/FYI: Patient's night time [...] currently only available to locations [employer] [place]. Beginning December 05, patient discharge date and Outreach Attempt documentation will populate here automatically. ? No flowsheet data found. ? SUMMARY: -Pt discharged from [facility] on 11/26/17. -Admitted for: Acute MSSA [...] Yes ? Medical records from recent hospitalization: [facility] Since discharge, patient took single dose [...] times daily, as directed. DX: E11.40 Insulin [place], Disposable, (BD ULTRA-FINE DAYA PEN NEEDLES) 32 [...] As needed based on activity. Dr. Land, [facility] cyclobenzaprine (FLEXERIL) 10 mg tablet Take 1 [...] MD PROGRESS Observed: 11/29/2017 Status: COMPLETED Source: [place] 11:09 AM [facility] REPOSITORY HNO ID: [id number] Author: Cassie Squires) Gladys Service: (none) Author Type: Physician Type: Progress Notes Filed: 11/29/2017 11:09 AM Note Text: Reviewed. Will discuss at tomorrow. PROGRESS Observed: 11/29/2017 Status: COMPLETED Source: [place] 10:57 AM [facility] REPOSITORY HNO ID: [id number] Author: Francesco Christian LPN Service: (none) Author Type: (none) Type: Progress Notes Filed: 12/11/2017 11:29 AM Note Text: TRANSITION CARE MANAGEMENT (TCM) INITIAL CONTACT [employer] [facility] Provider Action/FYI: Patient's night time insulin [...] currently only available to locations [employer] [place]. Beginning December 05, patient discharge date and Outreach Attempt documentation will populate here automatically. No flowsheet data found. SUMMARY: -Pt discharged from [facility] on 11/26/17. -Admitted for: Acute MSSA [...] home? Yes Medical records from recent hospitalization: [facility] CNPTOUTREACH Observed: 11/29/2017 Status: COMPLETED Source: [place] 12:00 AM [facility] REPOSITORY Patient Outreach ([facility]WS) AMARILYS KAISER JR. ([id number]) 1975 M Date Time Provider Department 11/29/17 CASSIE GRAHAM) JOVANPWS During your visit today, we recorded the following information about you: Francesco Christian LPN 12/11/2017 11:29 AM Signed TRANSITION CARE MANAGEMENT (TCM) INITIAL CONTACT [employer] Provider Action/FYI: Patient's night time insulin [...] currently only available to locations [employer]. Beginning December 05, patient discharge date and Outreach Attempt documentation will populate here automatically. No flowsheet data found. SUMMARY: -Pt discharged from [facility] on 11/26/17. -Admitted for: Acute MSSA [...] home? Yes Medical records from recent hospitalization: [facility] Cassie Graham MD 11/29/2017 11:09 AM [...] DISCHARGE SUMMARY Observed: 11/26/2017 Status: F Source: [place] 3:40 PM [facility] REPOSITORY [facility] Medical Records Department [address] [place] [address] [place] [address] Discharge Summary 11/26/17 1456 MR#: [id number] Acct: [id number] Name: AMARILYS KAISER Rep #: [id number] : 1975 42 From: Ermelinda Ambrose MD PCP: Jose Graham MD Status: DIS IN Y Location: MS3 [id number] ADDENDUM by Ermelinda Ambrose on 11/26/17 at 1540 Code Visit The patient called the floor back and he stated that he took 1 dose of Levaquin and that caused significant joint pain to him. I canceled the Levaquin prescription and I sent another E prescription for Duricef 1000 mg p.o. twice daily for 7 days to [facility] pharmacy on November 26, 2012 at 3:33 [...] Service support , Consultations 11/23/17 21:44 Consult: Onc/Wound/material reclaimer Routine Comment: Operations: None Procedures: None Summary [...] 1 week. This note was generated with Agil[employer] dictation software. It may contain incorrect words, [...] Sucralfate 1 gm PO 4X/DAY 06/21/16 Pyridostigmine [place] [Mestinon] 60 mg PO TID PRN PRN [...] applicable Code Visit Inpatient E AND M: 30141 Disch Hosp 11/26/17 1509 <Electronically signed by Ermelinda Ambrose MD> Date Ermelinda Ambrose MD Cosigner Signature (if applicable): Date CC: Jose Graham MD; Ermelinda Ambrose Signed BEDSIDE GLUCOSE Collected: 11/26/2017 Status: F Source: [place] 11:02 AM [facility] REPOSITORY TYPE CODE TESTS RESULT OUT OF REFERENCE UNITS RANGE LAB L501.080 70-110 mg/dL High BEDSIDE GLU 141 Result Comment: MANAGEMENT OF PATIENT CARE PER NURSING PROTOCOL Performed By: #### L501.080 #### [facility] Point of Care [address] [place] [address] DISCHARGE INSTRUCTION Observed: 11/26/2017 Status: F Source: [place] 9:04 AM [facility] REPOSITORY [facility] Medical Records Department [address] [place] [address] Instructions for Home/Discharge Instructions 11/26/17902 MR#: [id number] Acct: [id number] Name: AMARILYS KAISER Rep #: [id number] : 1975 42 From: Ermelinda Ambrose MD [...] Sucralfate 1 gm PO 4X/DAY 06/21/16 Pyridostigmine [place] [Mestinon] 60 mg PO TID PRN PRN [...] 11/26/2017 Status: F Source: [place] 6:39 AM [facility] REPOSITORY TYPE CODE TESTS RESULT OUT OF REFERENCE UNITS RANGE LAB L501.080 70-110 mg/dL High BEDSIDE GLU 250 Result Comment: MANAGEMENT OF PATIENT CARE PER NURSING PROTOCOL Performed By: #### L501.080 #### [facility] Point of Care [address] [place] [address] BEDSIDE GLUCOSE Collected: 11/25/2017 Status: F Source: [place] 10:19 PM [facility] REPOS[facility]ORY TYPE CODE TESTS RESULT OUT OF REFERENCE UNITS RANGE LAB L501.080 70-110 mg/dL High BEDSIDE GLU 393 Result Comment: MANAGEMENT OF PATIENT CARE PER NURSING PROTOCOL Performed By: #### L501.080 #### [facility] Point of Care [address] [place] [address] BEDSIDE GLUCOSE Collected: 11/25/2017 Status: F Source: [place] 4:11 PM [facility] REPOS[facility] TYPE CODE TESTS RESULT OUT OF REFERENCE UNITS RANGE LAB L501.080 70-110 mg/dL High BEDSIDE GLU 331 Result Comment: MANAGEMENT OF PATIENT CARE PER NURSING PROTOCOL Performed By: #### L501.080 #### [facility] Point of Care [address] [place] [address] BEDSIDE GLUCOSE Collected: 11/25/2017 Status: F Source: [place] 11:17 AM [facility] REPOS[facility] TYPE CODE TESTS RESULT OUT OF REFERENCE UNITS RANGE LAB L501.080 70-110 mg/dL High BEDSIDE GLU 239 Result Comment: MANAGEMENT OF PATIENT CARE PER NURSING PROTOCOL Performed By: #### L501.080 #### [facility] Point of Care [address] [place] [address] BEDSIDE GLUCOSE Collected: 11/25/2017 Status: F Source: [place] 6:09 AM [facility] RE[facility] TYPE CODE TESTS RESULT OUT OF REFERENCE UNITS RANGE LAB L501.080 70-110 mg/dL High BEDSIDE GLU 185 Result Comment: MANAGEMENT OF PATIENT CARE PER NURSING PROTOCOL Performed By: #### L501.080 #### [facility] Point of Care [address] [place] [address] BEDSIDE GLUCOSE Collected: 2017 Status: F Source: [place] 10:48 PM [facility] RE[facility] TYPE CODE TESTS RESULT OUT OF REFERENCE UNITS RANGE LAB L501.080 70-110 mg/dL High BEDSIDE GLU 337 Result Comment: MANAGEMENT OF PATIENT CARE PER NURSING PROTOCOL Performed By: #### L501.080 #### [facility] Point of Care [address] [place] [address] BEDSIDE GLUCOSE Collected: 2017 Status: F Source: [place] 2:54 PM [facility] RE[facility] TYPE CODE TESTS RESULT OUT OF REFERENCE UNITS RANGE LAB L501.080 70-110 mg/dL High BEDSIDE GLU 139 Result Comment: MANAGEMENT OF PATIENT CARE PER NURSING PROTOCOL Performed By: #### L501.080 #### [facility] Point of Care [address] [place] [address] BEDSIDE GLUCOSE Collected: 2017 Status: F Source: [place] 11:02 AM [facility] TYPE CODE TESTS RESULT OUT OF REFERENCE UNITS RANGE LAB L501.080 70-110 mg/dL High BEDSIDE GLU 158 Result Comment: MANAGEMENT OF PATIENT CARE PER NURSING PROTOCOL Performed By: #### L501.080 #### [facility] Point of Care [address] [place] [address] BEDSIDE GLUCOSE Collected: 2017 Status: F Source: [place] 6:52 AM [facility] TYPE CODE TESTS RESULT OUT OF REFERENCE UNITS RANGE LAB L501.080 70-110 mg/dL High BEDSIDE GLU 145 Result Comment: MANAGEMENT OF PATIENT CARE PER NURSING PROTOCOL Performed By: #### L501.080 #### [facility] Point of Care [address] [place] [address] CBC W/DIFF, AUTOMATED Collected: 2017 Status: F Source: [place] 6:00 AM [facility] REPOS[facility]ORY TYPE CODE TESTS RESULT OUT OF [...] Lymph 0.99 Performed By: #### L100.0100 #### [facility] [address] [place], [address] COMPREHENSIVE METABOLIC Collected: 2017 Status: F Source: [facility] 6:00 AM [facility] RE[facility] TYPE CODE TESTS RESULT OUT OF [...] GAP 8 Performed By: #### L500.4050 #### [facility] [address] [facility] [place], [address] VITAMIN B12 Collected: 2017 Status: F Source: [place] 6:00 AM [facility] RE[facility] TYPE CODE TESTS RESULT OUT OF RANGE REFERENCE UNITS LAB L503.0105 211-911 pg/mL Normal Vitamin B12 699 Performed By: #### L503.0105 #### [facility] [address] [facility] [place], [address] EMERGENCY DEPARTMENT Observed: 2017 Status: F Source: [place] SUMMARY 1:44 AM [facility] REPOSITORY [facility] Medical Records Department [address] [facility] [address] Emergency Department Summary 11/23/17 1635 MR#: [id number] Acct: [id number] Name: AMARILYS KAISER Rep #: [id number] : 1975 41 From: Cecelia Philippe MD [...] and drainage This note was generated with Agilys dictation software. It may contain incorrect words, spelling, and punctuation that were not noted in review of the chart prior to signing ED Disposition - Plan for ED Patient: Disposition: Acute Care Hospital [facility] Chief Complaint: Lower Extremity Injury What to do if you have Problems For any increased pain, shortness of breath, bleeding, nausea or vomiting, chest pain, or any unexpected problems, contact your Primary Care Provider. Call [facility] ([phone]) or report to the closest Emergency Room. Call 911 if necessary. 11/24/17 0144 <Electronically signed by Cecelia Philippe MD> Date Cecelia Philippe MD Cosigner Signature (If Indicated): Date CC: Jose Graham MD BEDSIDE GLUCOSE Collected: 11/23/2017 Status: F Source: [place] 9:04 PM [facility] RE[facility] TYPE CODE TESTS RESULT OUT OF REFERENCE UNITS RANGE LAB L501.080 70-110 mg/dL High BEDSIDE GLU 227 Result Comment: MANAGEMENT OF PATIENT CARE PER NURSING PROTOCOL Performed By: #### L501.080 #### [facility] Point of Care [address] [facility] [place] [address] HISTORY AND PHYSICAL Observed: 11/23/2017 Status: F Source: [place] EXAM 8:23 PM [facility] REPOSITORY [facility] Medical Records Department [address] [place] [address] History and Physical 11/23/171941 MR#: [id number] Acct: [id number] Name: AMARILYS KAISER Rep #: [id number] : 1975 41 From: Heidi Huynh PCP: [...] lovenox. Code Visit Inpatient E AND M: 28728 Init Hosp L3 11/23/172022 <Electronically signed by Heidi Huynh > Date Heidi Huynh Cosigner Signature: Date (if applicable) CC: Heidi Huynh; Jose Graham MD Signed MRSA WOUND DNA BY Collected: 11/23/2017 Status: F Source: [place] PCR 7:40 PM [facility] REPOSITORY Order Comment: Order Date: 11/23/17 TYPE CODE TESTS RESULT OUT OF RANGE REFERENCE UNITS LAB L8200.1100 Negative Normal MRSA Negative RESULT LAB L8200.1150 Negative High SA RESULT POSITIVE Performed By: #### L8200.1075 #### [place] [facility] [address] [place], [address] Observed: 11/23/2017 Status: F Source: [place] CULTURE, WOUND 7:40 PM [facility] REPOSITORY Order Date: 11/23/17 Gram Stain Gram [...] <=0.5 S (NF) indicates non-formulary drug at [facility]. Approval by Infectious Disease Specialist required before non-formulary drugs may be ordered and/or dispensed. * CLSI guidelines does not recommend testing of cephalosporins. This interpretation is deduced from Beta-lactam/penicillin results. Performed By: #### M100.1400 #### [facility] [address] [facility] [place], [address] Observed: 11/23/2017 Status: F Source: [place] CULTURE, BLOOD (WB) 5:08 PM [facility] REPOSITORY BC No growth in 5 days. Performed By: #### M200.1000 #### [facility] [address] [facility] [place], [address] CBC W/DIFF, AUTOMATED Collected: 11/23/2017 Status: F Source: [place] 5:00 PM [facility] REPOSITORY TYPE CODE TESTS RESULT OUT OF [...] Lymph 1.02 Performed By: #### L100.0100 #### [facility] [address] [place] [address], [address] PROTHROMBIN TIME W/INR Collected: 11/23/2017 Status: F Source: [place] 5:00 PM [facility] REPOSITORY TYPE CODE TESTS RESULT OUT OF RANGE REFERENCE UNITS LAB L300.4150 11.7-14.9 SECONDS Normal PROTIME 12.6 LAB L300.4200 Normal INR 0.9 Performed By: #### L300.3900, L300.4310 #### [facility] [address] [place], [place], [address] PARTIAL THROMBOPLAST Collected: 11/23/2017 Status: F Source: [place] TIME 5:00 PM [facility] REPOS[facility]ORY TYPE CODE TESTS RESULT OUT OF REFERENCE UNITS RANGE LAB L300.4310 24.1-36.2 Seconds High PTT 37.4 Performed By: #### L300.3900, L300.4310 #### [facility] [address] [place], [address] COMPREHENSIVE METABOLIC Collected: 11/23/2017 Status: F Source: [place] PROFIL 5:00 PM [facility] REPOSITORY TYPE CODE TESTS RESULT OUT OF [...] GAP 11 Performed By: #### L500.4050 #### [facility] [address] [place], [address] LACTIC ACID Collected: 11/23/2017 Status: F Source: [place] 5:00 PM [facility] REPOS[facility]ORY Order Comment: Yes/No query for Sepsis Lactate Rule Y TYPE CODE TESTS RESULT OUT OF RANGE REFERENCE UNITS LAB L503.6005 0.4-2.0 mmol/L Normal LACTIC ACID 0.7 Performed By: #### L503.6005 #### [facility] [place], [address] MAGNESIUM Collected: 11/23/2017 Status: F Source: [place] 5:00 [facility] REPOSITORY TYPE CODE TESTS RESULT OUT OF RANGE REFERENCE UNITS LAB L501.5200 1.6-2.6 mg/dL Normal MG 2.1 Performed By: #### L501.5200, L503.6030, L503.6550, L506.0250 #### [facility] [address] IRON+IRON BINDING Collected: 11/23/2017 Status: F Source: [facility] 5:00 PM [facility] REPOS[facility]ORY TYPE CODE TESTS RESULT OUT OF RANGE REFERENCE UNITS LAB L503.6075 250-450 ug/dL Low TIBC 175 LAB L503.6150 65-175 ug/dL Low IRON 30 LAB L503.6250 15.0-55.0 % IRON Normal SATURATION 17.1 Performed By: #### L501.5200, L503.6030, L503.6550, L506.0250 #### [facility] [address] [facility] [place], [address] FERRITIN Collected: 11/23/2017 Status: F Source: [place] 5:00 PM [facility]POS[facility] TYPE CODE TESTS RESULT OUT OF RANGE REFERENCE UNITS LAB L503.6550 26-388 ng/mL Normal FERRITIN 339 Performed By: #### L501.5200, L503.6030, L503.6550, L506.0250 #### [facility] [address] [place], [address] FOLATES, (FOLIC ACID) Collected: 11/23/2017 Status: F Source: [place] 5:00 PM [facility] REPOS[facility] TYPE CODE TESTS RESULT OUT OF RANGE REFERENCE UNITS LAB L506.0250 3.1-55.4 ng/mL Normal FOLATES 30.70 Performed By: #### L501.5200, L503.6030, L503.6550, L506.0250 #### [facility] [address] [place], [address] HEMOGLOBIN A1C Collected: 11/23/2017 Status: F Source: [place] 5:00 PM [facility] REPOS[facility] TYPE CODE TESTS RESULT OUT OF RANGE REFERENCE UNITS LAB L501.9985 4.2-6.3 % High HGB A1C 10.9 Performed By: #### L501.9985 #### [facility] [address] [place], [address] Observed: 11/23/2017 Status: F Source: [place] CULTURE, BLOOD (WB) 5:00 PM [facility] REPOSITORY BC No growth in 5 days. Performed By: #### M200.1000 #### [facility] [address] [facility] [place], [address] URINALYSIS, COMPLETE Collected: 11/23/2017 Status: F Source: [place] 4:45 PM [facility] RE[facility] Order Comment: Order Date: 11/23/17 How was Urine Obtained? SENIOR IT SPECIALIST TO SPECIFY TYPE CODE TESTS RESULT OUT [...] 0-5 SEEN Performed By: #### L400.0001 #### [facility] [address] [place], [address] Observed: 11/23/2017 Status: F Source: [place] CULTURE, URINE 4:45 PM [facility] RE[facility] Order Date: 11/23/17 Urine Culture Culture exhibits no growth. Performed By: #### M100.0650 #### [facility] [address] [place], [address] CHEST 1 VIEW Observed: 11/23/2017 Status: F Source: [place] (PORTABLE) 4:35 PM [facility] REPOSITORY [facility] Imaging Services [address] [place] [address] Chest 1 View (Portable) MR#: [id number] Acct: [id number] Name: AMARILYS KAISER Rep #: [id number] : 1975 M 41 From: Francesco Prdie MD PCP: Jose Graham MD Status: REG ER Study: Chest 1 View (Portable) Date of Exam: 11/23/17 Exam# [id number] Ordering Dr: Cecelia Philippe MD STUDY: X-RAY [...] CC: Jose Graham MD; Cecelia Philippe MD Breaker Table Worker: Signed TIBIA AND FIBULA Observed: 11/23/2017 Status: F Source: [place] 2 VIEWS 4:35 PM [facility] REPOSITORY [facility] Imaging Services [address] [place] [address] Tibia AND Fibula 2 Views MR#: [id number] Acct: [id number] Name: AMARILYS KAISER Rep #: [id number] : 1975 M 41 From: Francesco Pride MD PCP: Jose Graham MD Status: REG ER Study: Tibia AND Fibula 2 Views Date of Exam: 11/23/17 Exam# [id number] Ordering Dr: Cecelia Philippe MD STUDY: X-RAY [...] CC: Jose Graham MD; Cecelia Philippe MD Breaker Table Worker: Signed DISCHARGE SUMMARY Observed: 11/21/2017 Status: F Source: [place] 12:06 PM [facility] REPOS[facility]ORY [facility] Medical Records Department [address] [place] [address] Discharge Summary 11/21/17 1205 MR#: [id number] Acct: [id number] Name: AMARILYS KAISER Rep #: [id number] : 1975 41 From: Van Ga MD PCP: Jose Graham MD Status: DIS IN Y Location: [facility] [id number] Discharge Date and Diagnosis Date of Admission: 11/19/17 Date of Discharge: 11/21/17 - Primary Discharge Diagnosis Right lower extremity cellulitis - Secondary Discharge Diagnosis Chronic Problems IBS (irritable bowel syndrome) (Chronic) HTN (hypertension) (Chronic) Diabetes type I (Chronic) Myasthenia gravis (Chronic) Diabetes mellitus (Chronic) Hospital Course and Treatment Consultations 11/20/17 06:10 Consult: Onc/Wound/material reclaimer Routine Comment: wound with cellulitis to right [...] 8. DVT prophylaxis SC enoxaparin Discharge Diet: 2000 Calorie Control Diet Discharge Activity: Return to [...] Sucralfate 1 gm PO 4X/DAY 06/21/16 Pyridostigmine [place] [Mestinon] 60 mg PO TID PRN PRN [...] PO Q12H #14 tab Primary Care Physician: Joes Graham MD [Primary Care Provider] - Please [...] applicable Code Visit Inpatient E AND M: 03447 Disch Hosp 11/21/17 1206 <Electronically signed by Van Ga MD> Date Van Ga MD Cosigner Signature (if applicable): Date CC: Jose Graham MD; Van Ga MD Signed DISCHARGE INSTRUCTION Observed: 11/21/2017 Status: F Source: [place] 10:00 AM [facility] REPOS[facility]ORY [facility] Medical Records Department [address] [place] [address] Instructions for Home/Discharge Instructions 11/21/17 0959 MR#: [id number] Acct: [id number] Name: AMARILYS KAISER Víctor Rep #: [id number] : 1975 41 From: Van Ga MD [...] Sucralfate 1 gm PO 4X/DAY 06/21/16 Pyridostigmine [place] [Mestinon] 60 mg PO TID PRN PRN [...] 11/21/2017 Status: F Source: [place] 7:16 AM [facility] TYPE CODE TESTS RESULT OUT OF REFERENCE UNITS RANGE LAB L501.080 70-110 mg/dL High BEDSIDE GLU 139 Result Comment: MANAGEMENT OF PATIENT CARE PER NURSING PROTOCOL Performed By: #### L501.080 #### [facility] Point of Care [address] [place] [address] BEDSIDE GLUCOSE Collected: 11/21/2017 Status: F Source: [place] 6:50 AM [facility] TYPE CODE TESTS RESULT OUT OF REFERENCE UNITS RANGE LAB L501.080 70-110 mg/dL Low BEDSIDE GLU 65 Result Comment: MANAGEMENT OF PATIENT CARE PER NURSING PROTOCOL Performed By: #### L501.080 #### [facility] Point of Care [address] [place] [address] BEDSIDE GLUCOSE Collected: 11/21/2017 Status: F Source: [place] 6:32 AM [facility] TYPE CODE TESTS RESULT OUT OF REFERENCE UNITS RANGE LAB L501.080 70-110 mg/dL Low alert BEDSIDE GLU 38 Result Comment: Snack Given MANAGEMENT OF PATIENT CARE PER NURSING PROTOCOL Performed By: #### L501.080 #### [facility] Point of Care [address] [place] [address] GLUCOSE Collected: 11/21/2017 Status: F Source: [place] 6:26 AM [facility] TYPE CODE TESTS RESULT OUT OF RANGE REFERENCE UNITS LAB L501.0100 74-106 mg/dL Low alert GLU 29 Result Comment: Critical Result(s) Called at: 06:46:47 11/21/2017 by: Alex Horton RN (MS3) Glucose result less than 50 mg/dL suggests HYPOGLYCEMIA. Please note revised GLUCOSE reference range effective 2017. Performed By: #### L501.0100 #### [facility] [address] [place], [address] BEDSIDE GLUCOSE Collected: 11/21/2017 Status: F Source: [place] 6:01 AM [facility] TYPE CODE TESTS RESULT OUT OF REFERENCE UNITS RANGE LAB L501.080 70-110 mg/dL Low alert BEDSIDE GLU 33 Result Comment: Snack Given MANAGEMENT OF PATIENT CARE PER NURSING PROTOCOL Performed By: #### L501.080 #### [facility] Point of Care [address] [place] [address] BEDSIDE GLUCOSE Collected: 11/20/2017 Status: F Source: [place] 10:07 PM [facility] TYPE CODE TESTS RESULT OUT OF REFERENCE UNITS RANGE LAB L501.080 70-110 mg/dL High BEDSIDE GLU 272 Result Comment: MANAGEMENT OF PATIENT CARE PER NURSING PROTOCOL Performed By: #### L501.080 #### [facility] Point of Care [address] [place] [address] BEDSIDE GLUCOSE Collected: 11/20/2017 Status: F Source: [place] 5:52 PM [facility] TYPE CODE TESTS RESULT OUT OF REFERENCE UNITS RANGE LAB L501.080 70-110 mg/dL High BEDSIDE GLU 173 Result Comment: MANAGEMENT OF PATIENT CARE PER NURSING PROTOCOL Performed By: #### L501.080 #### [facility] Point of Care [address] [place] [address] VENOUS DUPLEX LOWER Observed: 11/20/2017 Status: F Source: [place] EXTREMITY 5:51 PM [facility] RE[facility]ORY [facility] Cardiovascular Services [address] [place] [address] Venous Duplex US - Compa Extrem 11/20/17 1145 MR#: [id number] Acct: [id number] Name: AMARILYS KAISER Rep #: [id number] : 1975 41 From: Chao Wei MD [...] Cassie Graham Performed By: Kanchan Wolfe RVT 11/20/171749 Date Chao Wei MD CC: Jose Graham MD; Van Ga MD; Inocencio Espinoza MD Date Dictated: 11/20/17 1145 Date Transcribed: 11/20/171749 Breaker Table Worker: Signed BEDSIDE GLUCOSE Collected: 11/20/2017 Status: F Source: [place] 3:59 PM [facility] TYPE CODE TESTS RESULT OUT OF RANGE REFERENCE UNITS LAB L501.080 70-110 mg/dL Normal BEDSIDE GLU 94 Result Comment: MANAGEMENT OF PATIENT CARE PER NURSING PROTOCOL Performed By: #### L501.080 #### [place] [facility] Point of Care [address] [place] [address] BEDSIDE GLUCOSE Collected: 11/20/2017 Status: F Source: [place] 2:45 PM [facility] TYPE CODE TESTS RESULT OUT OF RANGE REFERENCE UNITS LAB L501.080 70-110 mg/dL Normal BEDSIDE GLU 77 Result Comment: MANAGEMENT OF PATIENT CARE PER NURSING PROTOCOL Performed By: #### L501.080 #### [facility] Point of Care [address] [place] [address] BEDSIDE GLUCOSE Collected: 11/20/2017 Status: F Source: [place] 1:01 PM [facility] TYPE CODE TESTS RESULT OUT OF RANGE REFERENCE UNITS LAB L501.080 70-110 mg/dL Normal BEDSIDE GLU 80 Result Comment: MANAGEMENT OF PATIENT CARE PER NURSING PROTOCOL Performed By: #### L501.080 #### [facility] Point of Care [address] [place] [address] BEDSIDE GLUCOSE Collected: 11/20/2017 Status: F Source: [place] 11:04 AM [facility] TYPE CODE TESTS RESULT OUT OF REFERENCE UNITS RANGE LAB L501.080 70-110 mg/dL High BEDSIDE GLU 208 Result Comment: MANAGEMENT OF PATIENT CARE PER NURSING PROTOCOL Performed By: #### L501.080 #### [facility] Point of Care [address] [place] [address] BEDSIDE GLUCOSE Collected: 11/20/2017 Status: F Source: [place] 8:23 AM [facility] TYPE CODE TESTS RESULT OUT OF REFERENCE UNITS RANGE LAB L501.080 70-110 mg/dL High BEDSIDE GLU 174 Result Comment: MANAGEMENT OF PATIENT CARE PER NURSING PROTOCOL Performed By: #### L501.080 #### [facility] Point of Care [address] [place] [address] BEDSIDE GLUCOSE Collected: 11/20/2017 Status: F Source: [place] 7:43 AM [facility] TYPE CODE TESTS RESULT OUT OF REFERENCE UNITS RANGE LAB L501.080 70-110 mg/dL Low alert BEDSIDE GLU 41 Result Comment: Snack Given MANAGEMENT OF PATIENT CARE PER NURSING PROTOCOL Performed By: #### L501.080 #### [facility] Point of Care [address] [place], [place] [address] GLUCOSE Collected: 11/20/2017 Status: F Source: [place] 7:25 AM [facility] REPOSITORY TYPE CODE TESTS RESULT OUT OF RANGE REFERENCE UNITS LAB L501.0100 74-106 mg/dL Low alert GLU 33 Result Comment: Critical Result(s) Called at: 07:41:02 11/20/2017 by: Amrita Lynn Glucose result less than 50 mg/dL suggests HYPOGLYCEMIA. Please note revised GLUCOSE reference range effective 2017. Performed By: #### L501.0100 #### [facility] [address] [place], [place], [address] BEDSIDE GLUCOSE Collected: 11/20/2017 Status: F Source: [place] 7:24 AM [facility] REPOSITORY TYPE CODE TESTS RESULT OUT OF REFERENCE UNITS RANGE LAB L501.080 70-110 mg/dL Low alert BEDSIDE GLU 31 Result Comment: Snack Given MANAGEMENT OF PATIENT CARE PER NURSING PROTOCOL Performed By: #### L501.080 #### [facility] Point of Care [address] [place] [address] BEDSIDE GLUCOSE Collected: 11/20/2017 Status: F Source: [place] 7:01 AM [facility] REPOSITORY TYPE CODE TESTS RESULT OUT OF REFERENCE UNITS RANGE LAB L501.080 70-110 mg/dL Low alert BEDSIDE GLU 35 Result Comment: Snack Given MANAGEMENT OF PATIENT CARE PER NURSING PROTOCOL Performed By: #### L501.080 #### [facility] Point of Care [address] [place] [address] BASIC METABOLIC Collected: 11/20/2017 Status: F Source: [place] PROFILE (BMP) 5:54 AM [facility] REPOSITORY TYPE CODE TESTS RESULT OUT OF [...] GAP 8 Performed By: #### L500.2500 #### [facility] [address] [place], [place], [address] CBC W/DIFF, AUTOMATED Collected: 11/20/2017 Status: C Source: [place] 5:54 AM [facility] REPOSITORY TYPE CODE TESTS RESULT OUT OF [...] 11/20/17 1020 PATH REV previously reported as: Estela pierson Performed By: #### L100.0100 #### [facility] [address] [place], [place], [address] M R STAPH AUREUS Collected: 11/20/2017 Status: F Source: [place] DNA BY PCR 12:40 AM [facility] REPOSITORY TYPE CODE TESTS RESULT OUT OF RANGE REFERENCE UNITS LAB L8200.1100 Negative Normal MRSA Negative RESULT Performed By: #### L8200.1000 #### [facility] [place], [address] MRSA WOUND DNA BY Collected: 11/20/2017 Status: F Source: [place] PCR 12:40 AM [facility] REPOSITORY Order Comment: Interface Comments: Right Whitt wound TYPE CODE TESTS RESULT OUT OF RANGE REFERENCE UNITS LAB L8200.1100 Negative Normal MRSA Negative RESULT LAB L8200.1150 Negative High SA RESULT POSITIVE Performed By: #### L8200.1075 #### [facility] [address] [place], [address] Observed: 11/20/2017 Status: F Source: [place] CULTURE, BLOOD (WB) 12:15 AM [facility] REPOSITORY Has pt arrived? Y BC No growth in 5 days. Performed By: #### M200.1000 #### [facility] [address] [place], [address] BEDSIDE GLUCOSE Collected: 11/20/2017 Status: F Source: [place] 12:10 AM [facility] REPOSITORY TYPE CODE TESTS RESULT OUT OF REFERENCE UNITS RANGE LAB L501.080 70-110 mg/dL High BEDSIDE GLU 332 Result Comment: MANAGEMENT OF PATIENT CARE PER NURSING PROTOCOL Performed By: #### L501.080 #### [facility] Point of Care [address] [place] [address] HEMOGLOBIN A1C Collected: 11/20/2017 Status: F Source: [place] 12:05 AM [facility] REPOSITORY TYPE CODE TESTS RESULT OUT OF RANGE REFERENCE UNITS LAB L501.9985 4.2-6.3 % High HGB A1C 11.0 Performed By: #### L501.9985 #### [facility] [address] [place], [address] Observed: 11/20/2017 Status: F Source: [place] CULTURE, BLOOD (WB) 12:05 AM [facility] REPOSITORY Has pt arrived? Y BC No growth in 5 days. Performed By: #### M200.1000 #### [facility] [address] [place], [address] HISTORY AND PHYSICAL Observed: 11/19/2017 Status: F Source: [place] EXAM 11:42 PM [facility] REPOSITORY [facility] Medical Records Department [address] [place] [address] History and Physical 11/19/17 2310 MR#: [id number] Acct: [id number] Name: JOBAMARILYS Víctor Rep #: [id number] : 1975 41 From: Inocencio Espinoza MD PCP: Jose Graham MD Status: ADM IN Y Location: MS3 [id number] Problem List (1) Cellulitis of right leg [...] right knee: Patient is being admitted on MedSur floor. MRSA nasal screen. Patient received 1 [...] 78.0 H, Lymph % (Auto) 10.0 L, [place] % (Auto) 9.9, Eos % (Auto) 1.6, [...] fibula. Code Visit Inpatient E AND M: 96276 Init Hosp L3 11/19/17 2342 <Electronically signed by Inocencio Espinoza MD> Date Inocencio Espinoza MD Cosigner Signature: Date (if applicable) CC: Jose Graham MD; Inocencio Espinoza MD Signed EMERGENCY DEPARTMENT Observed: 11/19/2017 Status: F Source: [place] SUMMARY 9:51 PM [facility] REPOSITORY [facility] Medical Records Department [address] [place] [address] Emergency Department Summary 11/19/174 MR#: [id number] Acct: [id number] Name: AMARILYS KAISER Rep #: [id number] : 1975 41 From: Samantha Cowan MD [...] KADIE, hyperglycemia This note was generated with Agilys dictation software. It may contain incorrect words, [...] problems, contact your Primary Care Provider. Call [facility] ([phone]) or report to the closest Emergency Room. Call 911 if necessary. 11/19/17 2151 <Electronically signed by Samantha Cowan MD> Date Samantha Cowan MD Cosigner Signature (If Indicated): Date CC: Jose Graham MD CBC W/DIFF, AUTOMATED Collected: 11/19/2017 Status: F Source: [place] 8:23 PM [facility] REPOSITORY TYPE CODE TESTS RESULT OUT OF [...] 1.03 Performed By: #### L100.0100, L101.9900 #### [facility] [address] [place], [place], [address] ERYTHROCYTE SED RATE Collected: 11/19/2017 Status: F Source: [place] 8:23 PM [facility] REPOSITORY TYPE CODE TESTS RESULT OUT OF RANGE REFERENCE UNITS LAB L102.0000 0-15 mm/hr High SED RATE 81 Performed By: #### L100.0100, L101.9900 #### [facility] [address] [place], [place], [id number] BASIC METABOLIC Collected: 11/19/2017 Status: F Source: [place] PROFILE (BMP) 8:23 PM [facility] REPOSITORY TYPE CODE TESTS RESULT OUT OF [...] 11 Performed By: #### L500.2500, L501.6710 #### [facility] [address] [place], [place], [address] CRP Collected: 11/19/2017 Status: F Source: [place] 8:23 PM [facility] REPOSITORY TYPE CODE TESTS RESULT OUT OF RANGE REFERENCE UNITS LAB L501.6710 0.0-3.0 mg/L High 3.81 C-REACTIVE PROT Result Comment: C-Reactive Protein (CRP) provides useful information for the diagnosis, therapy and monitoring of inflammatory processes and associated diseases. For the evaluation of Relative Risk for Cardiovascular Disease, a High Sensitivity CRP (HSCRP) should be ordered. Performed By: #### L500.2500, L501.6710 #### [facility] [address] [place], [place], [address] TIBIA AND FIBULA Observed: 11/19/2017 Status: F Source: [place] 2 VIEWS 8:18 PM [facility] REPOSITORY [facility] Imaging Services [address] [place] [address] Tibia AND Fibula 2 Views MR#: [id number] Acct: [id number] Name: AMARILYS KAISER Rep #: [id number] : 1975 M 41 From: Alexandro Cortés MD PCP: Jose Graham MD Status: REG ER Study: Tibia AND Fibula 2 Views Date of Exam: 11/19/17 Exam# [id number] Ordering Dr: Samantha Cowan MD STUDY: X-RAY [...] CC: Samantha Cowan MD; Jose Graham MD Breaker Table Worker: Signed PROGRESS Observed: 11/14/2017 Status: COMPLETED Source: [place] 12:09 PM [facility] [place] REPOSITORY O ID: [id number] Author: Cassie Squires) Gladys Service: (none) Author [...] and depression - Asthma - Diabetic neuropathy ([facility]) Seeing Dr. Land - Emphysema lung ([facility]) early stages - GERD (gastroesophageal reflux disease) - Hyperlipidemia - Hypertension - IBS (irritable bowel syndrome) previously seeing GI - Myasthenia gravis ([facility]) Seeing Dr. Land-neurology - Shingles - Tobacco use - Type I diabetes mellitus ([facility]) Seeing Dr. Fam Previous Surgical History PAST [...] Mother Patient Allergies ALLERGIES Allergen Reactions - Nicoderm Rash - Reglan [Metoclopram* Hives [...] tablet TAKE 1 TABLET AT BEDTIME Insulin [place], Disposable, (BD ULTRA-FINE DAYA PEN NEEDLES) 32 [...] As needed based on activity. Dr. Land, [facility] metoprolol tartrate, short acting, (LOPRESSOR) 50 mg [...] MD CNOV Observed: 11/14/2017 Status: COMPLETED Source: [place] 12:00 PM [facility] REPOSITORY Office Visit ([facility]AMP[facility]) AMARILYS KAISER JR. ([id number]) 1975 M Date Time Provider Department 11/14/17 [...] and depression - Asthma - Diabetic neuropathy ([facility]) Seeing Dr. Land - Emphysema lung ([facility]) early stages - GERD (gastroesophageal reflux disease) - Hyperlipidemia - Hypertension - IBS (irritable bowel syndrome) previously seeing GI - Myasthenia gravis ([facility]) Seeing Dr. Land-neurology - Shingles - Tobacco use - Type I diabetes mellitus ([facility]) Seeing Dr. Fam Previous Surgical History PAST [...] Mother Patient Allergies ALLERGIES Allergen Reactions - Nicoderm Rash - Reglan [Metoclopram* Hives [...] tablet TAKE 1 TABLET AT BEDTIME Insulin [place], Disposable, (BD ULTRA-FINE DAYA PEN NEEDLES) 32 [...] As needed based on activity. Dr. Land, [facility] metoprolol tartrate, short acting, (LOPRESSOR) 50 mg [...] extremity edema [R60.0] Malnutrition of moderate degree ([facility]) [E44.0] Moderate persistent asthma without complication [J45.40] Diabetic polyneuropathy associated with type 1 diabetes mellitus (HCC) [E10.42] KADIE (acute kidney injury) ([facility]) [N17.9] Microalbuminuria [R80.9] Venous insufficiency of both lower extremities [I87.2] Order(s):sertraline (ZOLOFT) 100 mg tabletTake 1 tablet by mouth once daily.Disp: 90 tabletRfl: 1 Compression Knee HighsKNEE HIGH COMPRESSION STOCKINGS 20-30 MM. DX: EDEMADisp: 1 DeviceRfl: 1 CONSULT TO NEPHROLOGY [9018] Order #: [id number]: 1 losartan (COZAAR) 50 mg tabletTake 1 [...] 11/14/2017 12:28 PM >> CASSIE GRAHAM MD MonNov 14, 2017 12:28 PM Taking Problem List [...] End SERTRALINE 100 MG TABLET 90 t* 11/14/2017 Route: ORAL Sig: Take 1 tablet by mouth once daily. COMPOUNDED PRESCRIPTION 1 De* 11/14/2017 Class: Print RX Sig: KNEE HIGH [...] DISCHARGE INSTRUCTION Observed: 11/07/2017 Status: F Source: [place] 2:07 PM [facility] REPOSITORY [facility] Medical Records Department [address] [place] [address] Discharge Instruction 11/07/17 1406 MR#: [id number] Acct: [id number] Name: AMARILYS KAISER Rep #: [id number] : 1975 41 From: Juanita Matthews DO [...] your Primary Care Provider. Call [facility] ([phone]) or report to the closest Emergency Room. Call 911 if necessary. 11/07/17 1407 <Electronically signed by Juanita Matthews DO> Date Juanita Matthews DO Cosigner Signature (If Indicated): Date CC: Jose Graham MD EMERGENCY DEPARTMENT Observed: 11/07/2017 Status: F Source: [place] SUMMARY 2:06 PM [facility] REPOSITORY [facility] Medical Records Department [address] [place] [address] Emergency Department Summary 11/07/17 1404 MR#: [id number] Acct: [id number] Name: AMARILYS KAISER Rep #: [id number] : 1975 41 From: Juanita Matthews DO [...] Sting-local reaction] This note was generated with Agilys dictation software. It may contain incorrect words, [...] problems, contact your Primary Care Provider. Call [facility] ([phone]) or report to the closest Emergency Room. Call 911 if necessary. 11/07/17 1406 <Electronically signed by Juanita Matthews DO> Date Juanita Matthews DO Cosigner Signature (If Indicated): Date CC: Jose Graham MD ALBUMIN/CREAT RATIO Collected: 11/07/2017 Status: F Source: [place] 1:03 PM [facility] REPOSITORY TYPE CODE TESTS RESULT OUT OF REFERENCE UNITS RANGE LAB UCRR 20-300 mg/dL 86.8 Creatinine,Ur ine,Ran LAB UALBR 0.0-23.0 mg/L >4400.0 High Albumin Urine Random LAB UALBCR 0-30 mg/g Not Albumin/Creat calculated Ratio Performed By: #### UACR #### [facility] [address] [address] COMP METABOLIC PANEL Collected: 11/07/2017 Status: F Source: [place] 12:25 PM [facility] REPOSITORY TYPE CODE TESTS [...] mg/dL Glucose High 250 Result Comment: The [place] [employer] (ADA) provides guidance for cutoff [...] Standards of Medical Care in Diabetes 2016, [place] [employer]. Diabetes Care. 2016.39(Suppl 1). LAB [...] GFR. Performed By: #### CMP, HBA1C #### [facility] [address] [place], [place] [address] HEMOGLOBIN A1C Collected: 11/07/2017 Status: F Source: [place] 12:25 PM [facility] REPOSITORY TYPE CODE TESTS RESULT OUT OF REFERENCE UNITS RANGE LAB HGBA1C 4.3-5.6 % High Hemoglobin A1c 11.3 LAB HBA0 mg/dL Est. Average Glucose 278 Result Comment: eAG: (Estimated average glucose) is a calculated value from HgbA1c and is product support representative of the average blood glucose level in the last 2-3 month period. Performed By: #### CMP, HBA1C #### [facility] [address] [place], [place] [address] CNPTOUTREACH Observed: 10/24/2017 Status: COMPLETED Source: [place] 12:00 AM [facility] REPOSITORY Patient Outreach ([facility]) AMARILYS KAISER JR. ([id number]) 1975 M Date Time Provider Department 10/24/17 CASSIE GRAHAM) [facility] During your visit today, we recorded the following information about you: Allergies As of Date: 10/24/2017 Noted Allergy Reaction NICODERM 10/03/2016 2 - Rash REGLAN (METOCLOPRAMIDE HCL) 07/26/2016 4 - Hives Date Reviewed: 05/25/2017 Reviewed by: Awais Adhikari Ma - Fully Assessed Visit Diagnosis:Medication management [Z79.899] Order(s):ALBUMIN/CREAT RATIO RND UR [SQUACR] Order #: [id number] FUTURE Prescriptions as of 10/24/2017 Sig: X [...] [E10.9] More... Hyperlipidemia [E78.5] Encounter Status:Closed by STONE RODRIGUEZUSESunday on 01/05/18 PROGRESS Observed: 08/18/2017 Status: COMPLETED Source: [place] 3:38 PM [facility] REPOSITORY HNO ID: [id number] Author: Lisset Soler Service: (none) Author Type: Gold Leaf Printer Type: Progress Notes Filed: 08/23/2017 2:16 PM Note Text: Noted. PROGRESS Observed: 08/18/2017 Status: COMPLETED Source: [place] 1:16 PM [facility] REPOSITORY HNO ID: [id number] Author: Cassie Graham Service: (none) Author Type: Physician Type: Progress Notes Filed: 08/23/2017 2:16 PM Note Text: Patient seeing endo. Will have him follow up with Dr. Fam PROGRESS Observed: 08/17/2017 Status: COMPLETED Source: [place] 3:07 PM [facility] REPOSITORY HNO ID: [id number] Author: Lisset Soler Service: (none) Author Type: Gold Leaf Printer Type: Progress Notes Filed: 08/23/2017 2:16 PM Note Text: PHMA TEAMLET DOCUMENTATION Provider Action/FYI: Consult to pharmacy PSR Action/FYI: Teamlet has identified patient by name and date of . Team: Dr. Graham, Lisset Soler MA, Lisset Weathers, RN Pharmacy Resource Tech, Petr Paul MA, Alycia KhanPSR ? Last Office Visit:08/03/2017 ? Next Office [...] MA CNPTOUTREACH Observed: 08/17/2017 Status: COMPLETED Source: [place] 12:00 AM [facility] REPOSITORY Patient Outreach ([facility]) AMARILYS KAISER JR. ([id number]) 1975 M Date Time Provider Department 08/17/17 [facility], we recorded the following information about you: Lisset Soler MA 08/23/2017 2:16 PM Signed PHMA TEAMLET DOCUMENTATION Provider Action/FYI: Consult to pharmacy PSR Action/FYI: Teamlet has identified patient by name and date of . Team: Dr. Graham, Lisset Soler MA, Lisset Weathers, RN Pharmacy Resource Tech, Petr Paul MA, Alycia Khan,PSR ? Last [...] Assessed Reason for Visit: PHMA/Care Gap Outreach [4325] Prescriptions as of 08/17/2017 Sig: INSULIN ASPART [...] 08/23/17 PROGRESS Observed: 07/04/2017 Status: COMPLETED Source: [place] 8:36 AM [facility] REPOSITORY HNO ID: [id number] Author: Lisset Soler Service: (none) Author Type: Gold Leaf Printer Type: Progress Notes Filed: 07/04/2017 8:37 AM [...] MA CNCO Observed: 07/04/2017 Status: COMPLETED Source: [place] 12:00 AM [facility] REPOSITORY Letter Text Amarilys Kaiser Jr. [address] [address] 07/04/2017 [facility] #: [id number] Dear , Due to a change in [...] for you, please contact our office at [phone]. Thank you for choosing the [facility] as your Healthcare Provider . Sincerely, Family Medicine Appointment Office PROGRESS Observed: 07/03/2017 Status: COMPLETED Source: [place] 10:20 AM [facility] REPOSITORY HNO ID: [id number] Author: Cassie Graham Service: (none) Author Type: Physician Type: Progress Notes Filed: 07/04/2017 8:37 AM Note Text: Orders placed. PROGRESS Observed: 07/03/2017 Status: COMPLETED Source: [place] 10:17 AM [facility] REPOSITORY HNO ID: [id number] Author: Lisset Soler Service: (none) Author Type: Gold Leaf Printer Type: Progress Notes Filed: 07/04/2017 8:37 AM Note Text: Please file lab order. Thanks, STEPAN Gonzalez Dr. Patient has appointment tomorrow with Dr. Fam. Please Wait to file order. PROGRESS Observed: 07/03/2017 Status: COMPLETED Source: [place] 7:08 AM [facility] REPOSITORY HNO ID: [id number] Author: Shilpa Khan Psr Service: (none) Author Type: (none) Type: Progress Notes Filed: 07/04/2017 8:37 AM Note Text: Patient has been added to the appointment reminder calendar with lab . Labs still need ordered. PROGRESS Observed: 06/28/2017 Status: COMPLETED Source: [place] 9:08 AM [facility] REPOSITORY HNO ID: [id number] Author: Lisset Soler Service: (none) Author Type: Gold Leaf Printer Type: Progress Notes Filed: 07/04/2017 8:37 AM Note Text: PHMA TEAMLET DOCUMENTATION Provider Action/FYI: Patient has appointment scheduled, needs lab ordered, HgbA1c PSR Action/FYI: please call patient remind of appointment and lab work Thanks Teamlet has identified patient by name and date of . Team: Dr. Graham, Lisset Soler MA, , Petr Paul MA, Alycia Khan,BREER ? Last Office Visit:05/25/2017 ? Next Office [...] MA CNPTOUTREACH Observed: 06/28/2017 Status: COMPLETED Source: [place] 12:00 AM [facility] REPOSITORY Patient Outreach ([facility]) AMARILYS KAISER JR. ([id number]) 1975 M Date Time Provider Department 06/28/17 LISSET SOLER) [facility] During your visit today, [...] Labs, HM and Immunization: Labs: HGB A1C STEPAN Gonzalez Psr 07/04/2017 8:37 AM Signed Patient has [...] HgbA1c PHMA Documentation 07/04/2017 Opts out of [facility] No Appointments Scheduled Scheduled PCP Appt DM2 with No Urine Alb Lab Ordered DM2 with No DFE Record Requested A1C ANDgt; 8.9 Lab Ordered;Record Requested Lisset Soler MA Allergies As of Date: 06/28/2017 Noted Allergy Reaction NICODERM 10/03/2016 2 - Rash REGLAN (METOCLOPRAMIDE HCL) 07/26/2016 4 - Hives Date Reviewed: 05/25/2017 Reviewed by: Awais Adhikari Ma - Fully Assessed Reason for Visit: [facility]/Care Gap Outreach [3605] Primary Visit Diagnosis:Diabetic polyneuropathy associated with type 1 diabetes mellitus (HCC) [E10.42] Other Visit Diagnosis:Type 1 diabetes mellitus with diabetic polyneuropathy (HCC) [E10.42] Order(s):HGB A1C [[id number]] Order #: [id number] FUTURE COMP METABOLIC PANEL [SQCMP] Order #: [id number] FUTURE Prescriptions as of 06/28/2017 Sig: PEN [...] 07/04/17 PROGRESS Observed: 05/30/2017 Status: COMPLETED Source: [place] 1:47 PM [facility] REPOSITORY [facility] ID: [id number] Author: Lisset Soler Service: (none) Author Type: Gold Leaf Printer Type: Progress Notes Filed: 05/30/2017 2:06 PM Note Text: PHMA TEAMLET DOCUMENTATION Provider Action/FYI: patient has appointment 10-18-17 PSR Action/FYI: Teamlet has identified patient by name and date of . Team: Dr. Graham, Lisset Soler MA, Lisset Weathers, ERICH Pharmacy Resource Tech, JITENDRA Finney, Awais Roche MA, Petr Paul [...] MA CNPTOUTREACH Observed: 05/30/2017 Status: COMPLETED Source: [place] 12:00 AM [facility] REPOSITORY Patient Outreach ([facility]AMP[facility]) AMARILYS KAISER JR. ([id number]) 1975 M Date Time Provider Department 05/30/17 LISSET SOLER) [facility] During your visit today, we recorded the following information about you: Lisset Soler MA 05/30/2017 2:06 PM Signed PHMA TEAMLET DOCUMENTATION Provider Action/FYI: patient has appointment 10-18-17 PSR Action/FYI: Teamlet has identified patient by name and date of . Team: Dr. Graham, Lisset Soler MA, Lisset Weathers RN Pharmacy Resource Tech, JITENDRA Finney, Awais Rohce MA, Petr Paul MA, BREE GrayR ? Last Office Visit:05/25/2017 ? Next Office [...] Assessed Reason for Visit: PHMA/Care Gap Outreach [2625] Prescriptions as of 05/30/2017 Sig: GABAPENTIN 300 [...] 05/30/17 CNNURSE Observed: 05/25/2017 Status: COMPLETED Source: [place] 9:00 AM [facility] REPOSITORY [facility] AMARILYS KAISER JR. ([id number]) 1975 M Date Time Provider Department 05/25/17 9:00 AM [facility] NURSE ALEX During your visit today, we recorded the following information about you: Pulse Blood pressure 105/minute 116/80 Referring Provider: CASSIE GRAHAM) [[id number]] Allergies As of Date: 05/25/2017 Noted Allergy [...] 05/25/17 CNPN Observed: 05/25/2017 Status: COMPLETED Source: [place] 12:00 AM [facility] REPOSITORY [facility] AMARILYS KAISER JR. ([id number]) 1975 M Date Time Provider Department 05/25/17 [place] [facility] your visit today, we recorded [...] 05/25/2017 9:53 AM Signed Patient notified via Lignolt message. Allergies As of Date: 05/25/2017 Noted [...] 05/25/17 PROGRESS Observed: 04/27/2017 Status: COMPLETED Source: [place] 9:05 AM [facility] REPOSITORY HNO ID: [id number] Author: Patricia Grimm Ct Service: (none) Author [...] IV DATA: Not applicable SIGNED BY: Patricia aTtum April 27, 2017 9:[address] CHEST WO IVCON Observed: 04/27/2017 Status: F Source: [place] 9:01 AM [facility] REPOSITORY * * *Final Report* * * DATE OF EXAM: Apr 27 2017 9:01AM [facility] 0541 - CT CHEST WO IVCON / [...] 2. Postsurgical clips in the prevascular space Breaker Table Worker: MORIS Transcribe Date/Time: Apr 28 2017 8:48A Dictated by : ABDIRASHID HERNANDEZ DO This examination was interpreted and the report reviewed and electronically signed by: ABDIRASHID HERNANDEZ DO on Apr 28 2017 5:01PM EST [id number] VITAMIN B12 Collected: 04/25/2017 Status: F Source: [place] 7:54 AM [facility] REPOSITORY TYPE CODE TESTS RESULT OUT OF REFERENCE UNITS RANGE LAB B12 232-1245 pg/mL Vitamin B12 933 Performed By: #### B12, SERFOL, CMP, IRON, FERR, NTBNP, GGT, LIPB, HBA1C, HREMOP #### [facility] [address] [place], [place] [address] FOLATE, SERUM Collected: 04/25/2017 Status: F Source: [place] 7:54 AM [facility] REPOSITORY TYPE CODE TESTS RESULT OUT OF REFERENCE UNITS RANGE LAB SERFOL >4.7 ng/mL Folate, 7.1 Serum Performed By: #### B12, SERFOL, CMP, IRON, FERR, NTBNP, GGT, LIPB, HBA1C, HREMOP #### [facility] [address] Lisa Patton [place], [place] [address] COMP METABOLIC PANEL Collected: 04/25/2017 Status: F Source: [place] 7:54 AM [facility] REPOSITORY TYPE CODE TESTS [...] mg/dL Glucose High 296 Result Comment: The [place] Diabetes Association (ADA) provides guidance for cutoff [...] Standards of Medical Care in Diabetes 2016, [place] [employer]. Diabetes Care. 2016.39(Suppl 1). LAB [...] FERR, NTBNP, GGT, LIPB, HBA1C, HREMOP #### [place] [address] [place] [address] IRON AND TIBC Collected: 04/25/2017 Status: F Source: [place] 7:54 AM [facility] REPOSITORY TYPE CODE TESTS RESULT OUT OF REFERENCE UNITS RANGE LAB IRN 41-186 ug/dL Iron 55 LAB TIBC 232-386 ug/dL Low TIBC 217 LAB SAT 15-57 % Transferrin Saturatn 25 Performed By: #### B12, SERFOL, CMP, IRON, FERR, NTBNP, GGT, LIPB, HBA1C, HREMOP #### [place] [address] FERRITIN Collected: 04/25/2017 Status: F Source: [place] 7:54 AM [facility] REPOSITORY TYPE CODE TESTS RESULT OUT OF REFERENCE UNITS RANGE LAB FERR 30.3-565.7 ng/mL Ferritin 410.2 Performed By: #### B12, SERFOL, CMP, IRON, FERR, NTBNP, GGT, LIPB, HBA1C, HREMOP #### [place] [address] NT PRO BNP Collected: 04/25/2017 Status: F Source: [place] 7:54 AM [facility] REPOSITORY TYPE CODE TESTS RESULT OUT OF REFERENCE UNITS RANGE LAB PBNP <125 pg/mL High PRO B Natr 625 Peptide Performed By: #### B12, SERFOL, CMP, IRON, FERR, NTBNP, GGT, LIPB, HBA1C, HREMOP #### [address] [address] GGT Collected: 04/25/2017 Status: F Source: [place] 7:54 AM [facility] REPOSITORY TYPE CODE TESTS RESULT OUT OF RANGE REFERENCE UNITS LAB GGT 10-70 U/L High GGT 193 Performed By: #### B12, SERFOL, CMP, IRON, FERR, NTBNP, GGT, LIPB, HBA1C, HREMOP #### [facility] [address] [place] [address] LIPID PANEL, BASIC Collected: 04/25/2017 Status: F Source: [place] 7:54 AM [facility] REPOSITORY TYPE CODE TESTS RESULT OUT OF [...] Desk Reference: National Heart, Lung, and Blood [place]. National Institutes of Health. 2001: NIH Publication No. 01-3305. 2. An International Atherosclerosis Society position paper: global recommendations for the management of dyslipidemia: executive summary, Atherosclerosis. 2014: 232(2):410-413. Performed By: #### B12, SERFOL, CMP, IRON, FERR, NTBNP, GGT, LIPB, HBA1C, HREMOP #### [facility] [address] [place], [place] [id number] HEMOGLOBIN A1C Collected: 04/25/2017 Status: F Source: [place] 7:54 AM [facility] REPOSITORY TYPE CODE TESTS RESULT OUT OF REFERENCE UNITS RANGE LAB HGBA1C 4.3-5.6 % High Hemoglobin A1c 13.1 LAB HBA0 mg/dL Est. Average Glucose 329 Result Comment: eAG: (Estimated average glucose) is a calculated value from HgbA1c and is product support representative of the average blood glucose level in the last 2-3 month period. Performed By: #### B12, SERFOL, CMP, IRON, FERR, NTBNP, GGT, LIPB, HBA1C, HREMOP #### [facility] [address] [place], [place] [address] HEPATITIS REMOTE PANEL Collected: 04/25/2017 Status: F Source: [place] 7:54 AM [facility] REPOSITORY TYPE CODE TESTS RESULT OUT OF REFERENCE UNITS RANGE LAB AHBCOT Negative Hep B Core Ab,Total Negative LAB AHCV Negative Hepatitis C Ab Negative IA LAB HBSAGR Negative HBsAg Negative LAB AHBSAG Negative HepB Surface Ab,Qual Negative Result Comment: NEGATIVE Performed By: #### B12, SERFOL, CMP, IRON, FERR, NTBNP, GGT, LIPB, HBA1C, HREMOP #### [facility] [address] [place], [place] [address] ALLERGIES ALLERGIES DATE TYPE / NAME / CODE REACTION SEVERITY SOURCE CODE 12/07/2017 DRUG LEVOFLOXACIN OTHER: SEE C [address] Main [id number]([facility]) Repository 12/07/2017 DRUG LOSARTAN SWELLING [address] Main 4298765([facility]) Repository 11/23/2017 Drug metoclopramide Hives Unknown [place] Allergy/41 HCl/[id number](RXNOR Community 2043002([facility]) Repository 11/23/2017 Drug lisinopril/[id number] Angioedema Unknown [place] Allergy/41 8(RXNORM) Community 5469156([facility]) Repository 11/23/2017 Drug losartan/[id number]( Angioedema Unknown [place] Allergy/41 RXNORM) Community 7074544([facility]) Repository 11/14/2017 DRUG [facility]RIL OTHER: [facility] Main 3016192([facility]) Repository 10/03/2016 DRUG/42316 NICODERM RASH [place] 1003([facility]) [place] Repository 07/26/2016 DRUG METOCLOPRAMIDE HCL HIVES [facility]/41 [facility] Main [id number]([facility]) Repository ENCOUNTERS ENCOUNTERS ADMIT/DISCHARGE ACCOUNT ADMITTING ENCOUNTER LOCATION SOURCE NUMBER CLASS 04/20/2018/04/20/19 [id number] Ambulatory [address] Main [place] Repository 04/20/2018/04/20/19 [id number] Ambulatory [address] Main [place] Repository 04/18/2018 [id number] Ambulatory [facility] ing:US Repository 04/17/2018 [id number] Ambulatory [facility] ing:POLAB3 Repository 04/13/2018/04/13/19 [id number] Ambulatory [address] Main [place] Repository 03/09/2018/03/09/20 [id number] Ambulatory [address] Main [place] Repository 03/07/2018/03/09/20 [id number] Ambulatory [address] Main [place] Repository 03/06/2018/03/06/20 [id number] Ambulatory [address] Main [place] Repository 03/05/2018/03/06/20 [id number] Ambulatory [address] Main [place] Repository 03/01/2018/03/02/20 [id number] Ambulatory [address] Main [place] Repository 02/26/2018/02/27/20 [id number] Ambulatory [place] 18 [facility] Main [place] Repository 02/13/2018/02/14/20 [id number] Ambulatory [place] 18 [facility] Main [place] Repository 01/17/2018/10/25 [id number] Ambulatory [place] [facility] [address] [place] Repository 01/03/2018/01/04/20 [id number] Ambulatory [place] [facility] [address] [place] Repository 01/03/2018/01/04/20 [id number] Ambulatory [place] [facility] [address] [place] Repository 12/28/2017/12/29/19 [id number] Ambulatory [place] [facility] [address] [place] Repository 12/26/2017/12/27/19 [id number] Ambulatory [place] [facility] [place] Repository 12/26/2017/12/28/19 [id number] Ambulatory [place] [facility] [address] [place] Repository 12/22/2017/12/27/19 [id number] Ambulatory [place] [facility] [address] [place] Repository 12/22/2017/12/23/19 [id number] Ambulatory [place] [facility] [address] [place] Repository 12/21/2017/12/23/19 [id number] Ambulatory [place] 18 [facility] Main [place] Repository 12/18/2017/01/30/20 [id number] Ambulatory [place] [facility] [address] [place] Repository 12/07/2017/12/08/19 [id number] Ambulatory [place] [facility] [address] [place] Repository 12/07/2017/12/09/19 [id number] Ambulatory [place] 18 [facility] Main [place] Repository 11/30/2017/12/02/19 [id number] Ambulatory [place] 18 [facility] Main [place] Repository 11/23/2017/11/27/19 [id number] White, Heidi Inpatient [address] ing:VK7Wwwz: Repository [id number]: 1 11/23/2017 [id number] White, Heidi Ambulatory BMSBuilding:B [place].[facility] Repository 11/23/2017 [id number] White, Heidi Ambulatory BMSBuilding:B [place] MS.[facility] Repository 11/23/2017 [id number] White, Heidi Ambulatory BMSBuilding:B [place] MS.[facility] Repository 11/23/2017 [id number] Ambulatory BMSBuilding:B [place] MS.[facility] Repository 11/19/2017/11/22/19 [id number] Alexis, Inpatient [place] F[place] 18 [facility] Encounter [facility] ing:CG3Pdil: Repository [id number]: 1 11/19/2017 [id number] Alexis, Ambulatory BMSBuilding:Marbin Painter MS.[facility] Repository 11/19/2017 [id number] [facility], Ambulatory BMSBuilding:Marbin Painter MS.AZP [facility] Repository 11/19/2017/11/22/19 [id number] Ambulatory BMSBuilding:Marbin Madera MS.CF.[facility] Repository 11/19/2017 [id number] [facility], Ambulatory BMSBuilding:Marbin Painter MS.AZP [facility] Repository 11/14/2017/11/16/19 [id number] Ambulatory [address] Repository 11/07/2017/11/08/19 [id number] Emergency Fara Chaudhari 18 [facility] ing:ED Repository 11/07/2017 [id number] Ambulatory [facility] Repository 05/25/2017/05/26/19 [id number] Ambulatory [address] Repository 04/27/2017/04/27/19 [id number] Ambulatory [address] Repository 04/25/2017/04/25/19 [id number] Ambulatory [address] Repository PAYERS PAYERS ENCOUNTER GUARANTOR PAYER SUBSCRIBER SOURCE 04/18/2018 AMARILYS KAISER Primary AMARILYS Chaudhari [id number] [place] Insurance:[facility] JRDOB: [place], [place] *[place] [facility] [id number] Hospital [address]Prb: (330) Number: Repository () [id number] Date:4515-49-39FCOZ CLAIMS [address] [place] [address]BB: 04/18/2018 Secondary NOT GIVENUNK Fara Insurance:SELF PAY [facility] Number: Effective Repository Date:2018-04-17 04/17/2018 Amarilys Kaiser Primary AMARILYS Chaudhari [id number] Anuj [facility] [place], [place] *[place] [facility] [id number] Hospital [address]Hoj: (330) Number: Repository () [id number] Date:6990-65-60KTHH [place]S [address] [address]JU: 04/17/2018 Secondary NOT GIVENUNK Fara Insurance:SELF PAY [facility] Number: Effective Repository Date:2018-04-17 11/23/2017 Amarilys D Bettiechur Primary AMARILYS D Eagar [id number] [place] Insurance:MYCARE [facility] [place] [facility] [id number] Hospital [address]Xyh: (330) Number: Repository () [id number] Date:4053-02-70MIDJ [place]S [address] [address]GG: 11/23/2017 Secondary NOT GIVENUNK Fara Insurance:SELF PAY [facility] Number: Effective Repository Date:2017-11-23 11/23/2017 Amarilys D Buschur Primary AMARILYS D Fara [id number] [place] Insurance:MYCARE CR[facility] BUS[place]URDOB: [place] [facility] [id number] Hospital [address]Ody: (330) Number: Repository () [id number] Date:3423-76-88YCED [address]S [address] [address]BZ: 11/23/2017 Secondary NOT GIVENUNK [place] Insurance:SELF PAY [facility] Number: Effective Repository Date:2017-11-23 11/23/2017 Amarilsy D Buschur Primary AMARILYS D Eagar [id number] [place] Insurance:MYCARE [facility] BUS[place]URDOB: [place] [facility] [id number] [address]Tel: (330) Number: Repository () [id number] Date:8856-81-55FHKT [address]S [address] [address]ZS: 11/23/2017 Secondary NOT GIVENUNK Fara Insurance:SELF PAY [facility] Number: Effective Repository Date:2017-11-23 11/23/2017 Amarilys D Buschur Primary AMARILYS D Fara [id number] [place] Insurance:MYCARE CR[facility] BUS[place]URDOB: [place] [facility] [id number] Hospital [address]Zrx: (330) Number: Repository 421 () [id number] Date:0908-95-64UZGB [address]S [address] [address]NF: 11/23/2017 Secondary NOT GIVENUNK [place] Insurance:SELF PAY [facility] Number: Effective Repository Date:2017-11-23 11/23/2017 Amarilys D Bettiechur Primary AMARILYS D Eagar [id number] [place] Insurance:[facility]CARE [facility] BUS[place]URDOB: [place] [facility] [id number] Hospital [address]Umi: (330) Number: Repository () [id number] Date:6515-21-72BFMH [address]S [address] [address]PN: 11/23/2017 Secondary NOT GIVENUNK [place] Insurance:SELF PAY [facility] Number: Effective Repository Date:2017-11-23 11/19/2017 Amarilys D Buschur Primary AMARILYS D Fara [id number] [place] Insurance:MYCARE CRSC BUSCHURDOB: [place] [facility] [id number] Hospital [address]Xns: (330) Number: Repository 421 () [id number] Date:8274-50-59GVOT [address]S [address] [address]UH: 11/19/2017 Secondary NOT GIVENUNK [place] Insurance:SELF PAY [facility] Number: Effective Repository Date:2017-11-19 11/19/2017 Amarilys D Buschur Primary AMARILYS D Fara [id number] Anuj Insurance:MYCARE CR[facility] BUS[place]URDOB: [place] [facility] [id number] Hospital [address]Mkp: (330) Number: Repository () [id number] Date:8506-43-52RVPL CLAIMS [address], [place] [address]IY: 11/19/2017 Secondary NOT GIVENUNK Fara Insurance:SELF PAY [facility] Number: Effective Repository Date:2017-11-19 11/19/2017 Amarilys D Buschur Primary AMARILYS D Fara [id number] Anuj Insurance:MYCARE CR[facility] [place]URDOB: [place] [facility] [id number] Hospital [address]Ely: (330) Number: Repository () [id number] Date:2965-16-65UJMS CLAIMS [address], [place] [address]LZ: 11/19/2017 Secondary NOT GIVENUNK [place] Insurance:SELF PAY [facility] Number: Effective Repository Date:2017-11-19 11/19/2017 Amarilys D Buschur Primary AMARILYS D Fara [id number] Anuj Insurance:[facility]ARE [facility] BUS[place]URDOB: [place] [facility] [id number] Hospital [address]Dfi: (330) Number: Repository () [id number] Date:0730-82-41YHED CLAIMS [address] [address]HL: 11/19/2017 Secondary NOT GIVENUNK Fara Insurance:SELF PAY [facility] Number: Effective Repository Date:2017-11-19 11/19/2017 Amarilys D Buschur Primary AMARILYS D Eagar [id number] Anuj Insurance:MYCARE CR[facility] BUS[place]URDOB: [place] [facility] [id number] Hospital [address]Uat: (330) Number: Repository () [id number] Date:5513-31-91SBTT CLAIMS [address], [place] [address]YM: 11/19/2017 Secondary NOT GIVENUNK [place] Insurance:SELF PAY [facility] Number: Effective Repository Date:2017-11-19 11/07/2017 Amarilys Kaiser Primary AMARILYS Chaudhari [id number] [place] Insurance:[facility] JOBDOB: [place] [facility] [id number] Hospital [address]Erc: (330) Number: Repository () [id number] Date:5508-83-48HFMZ CLAIMS [address], [place] [address]TP: 11/07/2017 Secondary NOT GIVENUNK [place] Insurance:SELF PAY [facility] Number: Effective Repository Date:2017-11-07
== END ==
PROVIDERS: Family Provider Family Medicine; PCP Family Medicine; Referring Provider Internal Medicine Nephrology; Visit Provider Internal Medicine Nephrology
DX: E10.21 Type 1 diabetes mellitus with diabetic nephropathy (principal)
CPT/HCPCS: 76770

== ENCOUNTER → 2018-07-07 09:01 | Outpatient (CLI) | payer MEDICARE, SELFPAY ==
[2017-11-23 21:57] VITALS: BMI 22.5
[2018-07-07 10:21] LABS: Albumin, Serum 1.4 g/dL (3.2-5.0); BUN 30 mg/dL (7-18); BUN/Creat Ratio 21.4 RATIO (10-20); Chloride 100 mmol/L (98-107); EST Glomerular Filtration Rate 59 mL/min (>60); Est Glom Filt Rate - Afr Amer 71 mL/min (>60); Glucose 100 mg/dL (74-106); Phosphorus 2.9 mg/dL (2.5-4.9); Sodium Level 136 mmol/L (136-145)
[2018-07-10 16:07] LABS: PROELU- Albumin, Urine 57.9 % (.); PROELU- Alpha-1-Globulin,Ur 7.9 % (.); PROELU- Alpha-2-Globulin,Ur 8.8 % (.); PROELU- Beta Globulin, Ur 16.7 % (.); PROELU- Gamma Globulin, Ur 8.7 % (.)
[2018-07-11 11:46] LABS: Total Protein, Ur 961.5 mg/dL (Not Estab.)
== END ==
PROVIDERS: Family Provider Family Medicine; PCP Family Medicine; Referring Provider Internal Medicine Nephrology; Visit Provider Internal Medicine Nephrology
DX: N18.2 Chronic kidney disease, stage 2 (mild) (principal); N04.9 Nephrotic syndrome with unspecified morphologic changes
CPT/HCPCS: 36415; 80069; 84166

== ENCOUNTER → 2018-07-27 08:15 | Outpatient (CLI) | payer MEDICARE, SELFPAY ==
[2018-07-27 09:26] LABS: Anion Gap 11 (5-15); BUN 51 mg/dL (7-18); Calcium,Total 8.1 mg/dL (8.5-10.1); Chloride 93 mmol/L (98-107); Creatinine, Serum 2.04 mg/dL (0.70-1.30); EST Glomerular Filtration Rate 38 mL/min (>60); Est Glom Filt Rate - Afr Amer 46 mL/min (>60); Glucose 339 mg/dL (74-106); Potassium 3.7 mmol/L (3.5-5.1); Sodium Level 132 mmol/L (136-145)
[2018-07-30 16:08] LABS: Albumin 1.9 g/dL (2.9-4.4); Alpha-1-Globulins 0.3 g/dL (0.0-0.4); Free Kappa Light Chains 36.9 mg/L (3.3-19.4); Free Lambda Light Chains 39.1 mg/L (5.7-26.3); Gamma Globulin 0.4 g/dL (0.4-1.8); Immunoglobulin A 335 mg/dL (90-386); Immunoglobulin G 354 mg/dL (700-1600); Immunoglobulin M 140 mg/dL (20-172); PROEL- TOTAL PROTEIN 4.9 g/dL (6.0-8.5)
== END ==
PROVIDERS: Family Provider Family Medicine; PCP Family Medicine; Visit Provider Internal Medicine Nephrology
DX: N18.2 Chronic kidney disease, stage 2 (mild) (principal); N04.9 Nephrotic syndrome with unspecified morphologic changes
CPT/HCPCS: 36415; 80048; 82784; 83883; 84165; 86334

== ENCOUNTER 2018-08-21 08:08 | Outpatient (RCR) | payer MEDICARE, SELFPAY ==
[2018-08-21 10:41] LABS: BUN 58 mg/dL (7-18); BUN/Creat Ratio 23.8 RATIO (10-20); Chloride 93 mmol/L (98-107); Creatinine, Serum 2.44 mg/dL (0.70-1.30); EST Glomerular Filtration Rate 31 mL/min (>60); Est Glom Filt Rate - Afr Amer 37 mL/min (>60); Glucose 549 mg/dL (74-106); Potassium 4.8 mmol/L (3.5-5.1); Sodium Level 130 mmol/L (136-145)
[2018-08-21 10:42] LABS: Anion Gap 9 (5-15)
== END 2018-08-24 23:59 ==
LOC: LAB.FUTURE 08:08
PROVIDERS: Family Provider Family Medicine; PCP Family Medicine; Visit Provider Internal Medicine Nephrology
DX: N17.9 Acute kidney failure, unspecified (principal)
CPT/HCPCS: 36415; 80048

== ENCOUNTER 2018-08-30 18:53 | Emergency (ER) | payer MEDICARE, SELFPAY ==
[2018-08-30 18:53] VITALS: BP 163/110; PULSE 83; PULSE 84; RESP 14; RESP 16; TEMP 36.9; O2SAT 100; O2SAT 98; BMI 19.8
--- NOTE | 2018-08-30 19:01 | EKG12_ITS ---
Test Reason : ABD.PAIN Blood Pressure : / mmHG Vent. Rate : 080 BPM Atrial Rate : 080 BPM P-R Int : 122 ms QRS Dur : 090 ms QT Int : 396 ms P-R-T Axes : 073 074 056 degrees QTc Int : 456 ms Normal sinus rhythm Normal ECG Confirmed by CARMEN PACHECO, MICHELLE ([id number]), editor at large BART GATES ([id number]) on 09/04/2018 8:44:51 AM Referred By: Nina Vang Confirmed By:MICHELLE MORALES MD
--- NOTE | 2018-08-30 19:14 | ED.VIS.GEN ---
History of Present Illness Chief Complaint: Abd Pain Informant: Patient Onset: Days, Weeks Current Severity: Moderate Narrative: Patient reports a long history of diabetes gastroparesis abdominal pain vomiting, he is had extensive prior evaluation including ultrasounds plain films CAT scans EGDs he is scheduled next week to the procedure at [facility] endoscopic, where he indicates some thing internal to the stomach spine to be done to relax her stomach to allow the fluid to transit his blood sugars have been in the 2-300 range she has been taking his insulin despite his inability eat his blood sugar then became low and he was able to drink some orange juice and he came to the emergency department The syndrome he is having currently where he complains of upper abdominal pain constant dry heaving is not new the symptoms are very consistent and nearly identical to what he usually has Past Medical History - Allergies and Home Meds Allergies/Adverse Reactions: Allergies levofloxacin [From Levaquin] Allergy (Verified 08/30/18 20:23) Pain in joints lisinopril Allergy (Verified 08/30/18 20:23) Angioedema losartan Allergy (Verified 08/30/18 20:23) Angioedema metoclopramide HCl [From Reglan] Allergy (Verified 08/30/18 20:23) Hives Primary Care Physician: Jose Graham MD [Primary Care Provider] - Past Medical History: - - Had a prior thymectomy, insulin dep diabetes mellitus, gastroparesis Surgical History: - - Thymectomy, cholecystectomy, teeth resection. Smoking Status: Current some day smoker - Family History Maternal Family History: Reports: - - Crohn's disease and thyroid disease. Paternal Family History: Reports: Cancer, Hypertension, - Review of Systems All systems negative except as indicated General: Denies: Chills, Fever, Sweats Eyes: Denies: Visual changes - bilaterally, Diplopia ENT: Denies: Rhinorrhea, Sore throat Cardiovascular: Denies: Chest pain, Palpitations Respiratory: Denies: Dyspnea, Cough, Dyspnea on exertion Gastrointestinal: Reports: Abdominal pain, Nausea, Vomiting, Diarrhea. Denies: Melena, Hematochezia Genitourinary: Denies: Dysuria, Hematuria, Frequency Musculoskeletal: Denies: Back pain, Extremity Pain Skin: Denies: Rash, Wounds Neurological: Denies: Headache, Weakness, Numbness Physical Exam Vital Signs/Narrative: Vital Signs Temp Pulse Resp BP Pulse Ox 08/30/18 18:53 98.5 F 83 16 163/110 H 100 General: Well nourished, Well developed, No Acute Distress Head: Normocephalic, Atraumatic Eyes: Perrl, EOMI ENT: Moist mucous membranes, No rhinorrhea Neck: Supple, Nontender Cardiovascular: Regular rate, Regular rhythm, No murmurs Respiratory: No distress, CTA bilaterally, Chest nontender Abdomen: Soft, Nondistended, Guarding, - Back: Nontender, Normal Inspection Extremities: Nontender, No edema Skin: Normal color, No rash Neurological: Alert, Oriented x3, Cranial nerves II-XII grossly intact, Normal Strength, Normal Sensation Psychological: Normal affect, Normal Mood Diagnostic/Tx/Re-eval - Medical Decision Making given all the above we will obtain screening labs IV fluids pain management Dc Discussed CT imaging with the patient he declined that saying that basically is had a lot of different imaging studies he is never had an obstruction or anything that requires immediate intervention again he indicates the pain that he is having is very consistent with prior episodes of gastroparesis with vomiting he tried to manage this at home, took his insulin developed a low blood sugar because he could not eat and then came to the emergency department after being able to take some liquids Patient to continue to report that his pain was not totally resolved initially he felt he could not be discharged home, his physical exam findings were unchanged his screening labs were unremarkable CT unremarkable, he did have elevated liver result enzymes above his baseline he indicates he is 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 fluids here, one [place] tablet, he will be discharged on [place] No. 4 tablets to use very sparingly as per his discussion with hospitalist he is scheduled to be seen by pain management next week and otherwise he will follow-up with his [facility] specialty physicians if he is not improved or return to the hospital Final impression Acute recurrent abdominal pain Abnormal liver enzymes Diabetes mellitus ED Disposition - Plan for ED Patient: Diagnosis: Abdominal pain, Diabetes type I Instructions: ED Abdominal Pain Unkn Cause Prescriptions: Hydrocodone Bitart/Apap 5-325 [[place] 5MG-325MG] 1 tab PO Q4H PRN PRN 2 Days #7 tab PRN Reason: Pain Referrals: Jose Graham MD [Primary Care Provider] -
[2018-08-30] MEDS: 0.9% Normal Saline 1,000 ML 1000 ML IV (19:21)
--- NOTE | 2018-08-30 19:23 | ED.DCSUM_ITS ---
History of Present Illness Chief Complaint: Abd Pain Informant: Patient Onset: Days, Weeks Current Severity: Moderate Narrative: Patient reports a long history of diabetes gastroparesis abdominal pain vomiting, he is had extensive prior evaluation including ultrasounds plain films CAT scans EGDs he is scheduled next week to the procedure at [facility] endoscopic, where he indicates some thing internal to the stomach spine to be done to relax her stomach to allow the fluid to transit his blood sugars have been in the 2-300 range she has been taking his insulin despite his inability eat his blood sugar then became low and he was able to drink some orange juice and he came to the emergency department The syndrome he is having currently where he complains of upper abdominal pain constant dry heaving is not new the symptoms are very consistent and nearly identical to what he usually has Past Medical History - Allergies and Home Meds Allergies/Adverse Reactions: Allergies levofloxacin [From Levaquin] Allergy (Verified 08/30/18 20:23) Pain in joints lisinopril Allergy (Verified 08/30/18 20:23) Angioedema losartan Allergy (Verified 08/30/18 20:23) Angioedema metoclopramide HCl [From Reglan] Allergy (Verified 08/30/18 20:23) Hives Primary Care Physician: Jose Graham MD [Primary Care Provider] - Past Medical History: - - Had a prior thymectomy, insulin dep diabetes mellitus, gastroparesis Surgical History: - - Thymectomy, cholecystectomy, teeth resection. Smoking Status: Current some day smoker - Family History Maternal Family History: Reports: - - Crohn's disease and thyroid disease. Paternal Family History: Reports: Cancer, Hypertension, - Review of Systems All systems negative except as indicated General: Denies: Chills, Fever, Sweats Eyes: Denies: Visual changes - bilaterally, Diplopia ENT: Denies: Rhinorrhea, Sore throat Cardiovascular: Denies: Chest pain, Palpitations Respiratory: Denies: Dyspnea, Cough, Dyspnea on exertion Gastrointestinal: Reports: Abdominal pain, Nausea, Vomiting, Diarrhea. Denies: Melena, Hematochezia Genitourinary: Denies: Dysuria, Hematuria, Frequency Musculoskeletal: Denies: Back pain, Extremity Pain Skin: Denies: Rash, Wounds Neurological: Denies: Headache, Weakness, Numbness Physical Exam Vital Signs/Narrative: Vital Signs Temp Pulse Resp BP Pulse Ox 08/30/18 18:53 98.5 F 83 16 163/110 H 100 General: Well nourished, Well developed, No Acute Distress Head: Normocephalic, Atraumatic Eyes: Perrl, EOMI ENT: Moist mucous membranes, No rhinorrhea Neck: Supple, Nontender Cardiovascular: Regular rate, Regular rhythm, No murmurs Respiratory: No distress, CTA bilaterally, Chest nontender Abdomen: Soft, Nondistended, Guarding, - Back: Nontender, Normal Inspection Extremities: Nontender, No edema Skin: Normal color, No rash Neurological: Alert, Oriented x3, Cranial nerves II-XII grossly intact, Normal Strength, Normal Sensation Psychological: Normal affect, Normal Mood Diagnostic/Tx/Re-eval - Medical Decision Making given all the above we will obtain screening labs IV fluids pain management Dc Discussed CT imaging with the patient he declined that saying that basically is had a lot of different imaging studies he is never had an obstruction or anything that requires immediate intervention again he indicates the pain that he is having is very consistent with prior episodes of gastroparesis with vomiting he tried to manage this at home, took his insulin developed a low blood sugar because he could not eat and then came to the emergency department after being able to take some liquids Patient to continue to report that his pain was not totally resolved initially he felt he could not be discharged home, his physical exam findings were unchanged his screening labs were unremarkable CT unremarkable, he did have elevated liver result enzymes above his baseline he indicates he is aware of 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 fluids here, one [place] tablet, he will be discharged on [place] No. 4 tablets to use very sparingly as per his discussion with hospitalist he is scheduled to be seen by pain management next week and otherwise he will follow-up with his [facility] specialty physicians if he is not improved or return to the hospital Final impression Acute recurrent abdominal pain Abnormal liver enzymes Diabetes mellitus ED Disposition - Plan for ED Patient: Diagnosis: Abdominal pain, Diabetes type I Instructions: ED Abdominal Pain Unkn Cause Prescriptions: Hydrocodone Bitart/Apap 5-325 [[place] 5MG-325MG] 1 tab PO Q4H PRN PRN 2 Days #7 tab PRN Reason: Pain Referrals: Jose Graham MD [Primary Care Provider] -
[2018-08-30] MEDS: morphine 8 MG/ML Syringe IV (19:27)
[2018-08-30] MEDS: Ondansetron 4 MG/2 ML Vial IV (19:27)
[2018-08-30 19:46] LABS: Absolute Lymphocyte Count 1.57 X10^3/ul (0.83-4.51); Basophil# 0.02 X10^3/uL; Basophil% 0.2 % (0-1); Eosinophil# 0.25 X10^3/uL; Eosinophils% 2.4 % (0-5); Hematocrit 37.9 % (40-54); Hemoglobin 13.4 g/dl (13.0-16.5); Lymphocyte # 1.57 X10^3/ul (4.0); Lymphocyte % 14.9 % (19-41); Mean Corp Hgb Conc 35.4 g/gl (32-36); Mean Corpuscular Hgb 30.2 pg (27.0-32.0); Mean Corpuscular Volume 85.6 fL (80-94); Mean Platelet Vol. 11.9 fl (6.2-12.0); Monocyte# 0.63 X10^3/uL; Neutrophil # 8.04 X10^3/uL (2.7-7.7); Neutrophil % 76.1 % (47-70); Platelet Count 250 K/mm3 (150-450); RBC Distribution Width CV 14.3 % (11.6-14.6); RBC Distribution Width SD 44.6 fl (35.1-43.9); Red Blood Count 4.43 M/mm3 (4.6-6.2); White Blood Count 10.6 K/mm3 (4.4-11.0)
[2018-08-30 19:50] LABS: POSITIVE COUNT NO; POSITIVE DIFFERENTIAL NO; POSITIVE MORPHOLOGY NO
[2018-08-30 19:53] VITALS: BP 184/73
[2018-08-30 20:02] LABS: AST(SGOT) 224 U/L (15-37); Alanine Aminotransfer ALT/SGPT 235 U/L (16-61); Albumin, Serum 1.8 g/dL (3.2-5.0); Alkaline Phosphatase 922 U/L (45-117); Anion Gap 8 (5-15); BUN 38 mg/dL (7-18); BUN/Creat Ratio 22.9 RATIO (10-20); Bilirubin, Direct 0.33 mg/dL (0.00-0.30); Calcium,Total 8.5 mg/dL (8.5-10.1); Chloride 99 mmol/L (98-107); Creatinine, Serum 1.66 mg/dL (0.70-1.30); EST Glomerular Filtration Rate 48 mL/min (>60); Est Glom Filt Rate - Afr Amer 58 mL/min (>60); Estimated Creatinine Clearance 45.28 ml/min; Globulin 5.2 g/dL (2.2-4.2); Glucose 153 mg/dL (74-106); Lipase 87 U/L (73-393); Potassium 3.6 mmol/L (3.5-5.1); Sodium Level 135 mmol/L (136-145)
[2018-08-30 20:33] LABS: Mucous, Urine 0 SEEN /hpf (<or=2+)
[2018-08-30 20:45] LABS: Color, Urine Yellow (Yellow); Glucose, Dipstick 50 mg/dl (Normal); Ketone-Dipstick Negative (Negative); Leukocyte Esterase-Dipstick 25 /ul (Negative); Nitrite-Dipstick Negative (Negative); Occult Blood-Urine 25 /ul (Negative); Protein-Dipstick 500 mg/dl (Negative); Urine Bilirubin Dipstick Negative (Negative); Urine Clarity Clear (Clear); Urine Urobilinogen Normal (Normal); Urine pH 6.5 (5.0 - 8.0)
[2018-08-30 20:57] LABS: Bacteria RARE /hpf (None Seen); Hyaline Cast 0-5 SEEN /lpf (0-5); Red Blood Cells-Urine 0-5 SEEN /hpf (0-5); Squamous Epithelial Cells - UA 0-5 SEEN /hpf (0-5); White Blood Cells 0-5 SEEN /hpf (0-5)
--- NOTE | 2018-08-30 20:58 | CT_ITS ---
STUDY: CT ABDOMEN AND PELVIS WITHOUT CONTRAST REASON FOR EXAM: Male, 42 years old. Upper abdominal pain radiating into the back. History of diabetes IBS gastroparesis and myasthenia gravis gravis. Prior cholecystectomy. RADIATION DOSAGE (If Supplied By Facility): CTDIvol = ( 6.08 ) mGy, DLP = ( 302.31 ) mGycm TECHNIQUE: Transaxial images were obtained from the dome of the diaphragm to the symphysis pubis without oral contrast, and without intravenous contrast. Sagittal and coronal images were reconstructed. Individualized dose optimization techniques were used for this CT. COMPARISON: February 07, 2017. FINDINGS: The visualized lung bases are unremarkable. The visualized portions of the heart are within normal limits. Is evidence of prior median sternotomy. Normal liver. There are surgical clips in the gallbladder fossa consistent with a prior cholecystectomy. Normal spleen. There is diffuse atrophy of the pancreas. Normal bilateral adrenal glands. The right kidney is of normal size, contour and cortical thickness. There is mild stranding of perinephric fat thickening of the pararenal fascial planes. There is no renal mass or renal calculi. There is no hydronephrosis. Normal visualized right ureter. The left kidney is of normal size and cortical thickness. There is no mass or renal calculi. There is stranding of the perinephric fat with thickening of the pararenal fascial planes. Normal visualized left ureter. The stomach is incompletely distended but grossly normal. Normal small intestine. There is sigmoid diverticuli without acute inflammatory change. The proximal colon is unremarkable. The appendix is visualized and appears normal. There is diffuse atherosclerotic calcification of the abdominal aorta, without a demonstrated aneurysm. Normal inferior vena cava. Normal retroperitoneum. There is mild circumferential wall thickening of the incompletely distended urinary bladder. The prostate is enlarged. No pelvic lymphadenopathy. There is mild ascites seen in the subphrenic spaces and paracolic gutters and pelvis. There is no free air. There is mild anasarca of the soft tissues of the abdominal wall and flanks. Normal osseous structures. CT/Abdomen/Pelvis without Cont IMPRESSION: 1. Mild circumferential thickening of the bladder wall. This may be due to nondistention. It was not visualized on the prior study. 2. Mild anasarca not seen on the prior exam. 3. Mild stranding of the perinephric fat and pararenal fascial planes not previously appreciated. There is no structural abnormality of the kidneys. 4. No other major interval change. Electronically Signed: Eduin Kaplan DO at 21:27 EDT Tel [phone], Service support ,
[2018-08-30 22:23] VITALS: BP 178/116; PULSE 74; RESP 20; O2SAT 98
[2018-08-30] MEDS: HYDROcodone Bitartrate/Apap 5/325 Tablet PO (23:59)
[2018-08-31 00:01] VITALS: BP 167/117; PULSE 74; RESP 17; O2SAT 97
== END 2018-08-31 00:02 | disposition home or self-care (01) ==
LOC: ED 19:22
PROVIDERS: Emergency Provider Emergency Medicine; Family Provider Family Medicine; PCP Family Medicine
DX: R10.9 Unspecified abdominal pain (principal); E10.9 Type 1 diabetes mellitus without complications; R74.8 Abnormal levels of other serum enzymes; K31.84 Gastroparesis; F17.200 Nicotine dependence, unspecified, uncomplicated; Z90.49 Acquired absence of other specified parts of digestive tract; Z88.1 Allergy status to other antibiotic agents; Z79.4 Long term (current) use of insulin; Z88.8 Allergy status to other drugs, medicaments and biological substances
CPT/HCPCS: 74176; 80048; 80076; 81001; 82009; 83690; 84484; 85025; 93005; 96361; 96374; 96375; 99285; J7030; A4216; J2405

== ENCOUNTER 2018-09-21 12:56 | Outpatient (RCR) | payer MEDICARE, SELFPAY ==
[2017-11-23 21:57] VITALS: BMI 22.5
[2018-08-29 11:14] LABS: Anion Gap 9 (5-15); BUN 48 mg/dL (7-18); BUN/Creat Ratio 25.8 RATIO (10-20); Calcium,Total 8.4 mg/dL (8.5-10.1); Chloride 98 mmol/L (98-107); Creatinine, Serum 1.86 mg/dL (0.70-1.30); EST Glomerular Filtration Rate 42 mL/min (>60); Est Glom Filt Rate - Afr Amer 51 mL/min (>60); Glucose 185 mg/dL (74-106); Potassium 3.5 mmol/L (3.5-5.1); Sodium Level 135 mmol/L (136-145)
[2018-09-21 13:39] LABS: Anion Gap 7 (5-15); BUN 38 mg/dL (7-18); BUN/Creat Ratio 24.7 RATIO (10-20); Calcium,Total 8.1 mg/dL (8.5-10.1); Chloride 104 mmol/L (98-107); Creatinine, Serum 1.54 mg/dL (0.70-1.30); EST Glomerular Filtration Rate 53 mL/min (>60); Est Glom Filt Rate - Afr Amer 64 mL/min (>60); Glucose 64 mg/dL (74-106); Potassium 3.8 mmol/L (3.5-5.1); Sodium Level 138 mmol/L (136-145)
== END 2018-09-21 13:00 | disposition home or self-care (01) ==
LOC: LAB 12:56
PROVIDERS: Family Provider Family Medicine; PCP Family Medicine; Referring Provider Internal Medicine Nephrology; Visit Provider Internal Medicine Nephrology
DX: N17.9 Acute kidney failure, unspecified (principal)
CPT/HCPCS: 36415; 80048

== ENCOUNTER 2018-10-07 19:36 | Emergency (ER) | payer MEDICARE, SELFPAY ==
[2018-10-07 19:37] VITALS: BP 149/79; PULSE 89; RESP 17; TEMP 36.7; O2SAT 98; O2SAT 99; BMI 23.5
--- NOTE | 2018-10-07 19:47 | ED.VIS.GEN ---
History of Present Illness Chief Complaint: Abd Pain Detail of Chief Complaint: Diffuse pain Informant: Patient Onset: Days Context: Gradual Onset Timing: Continuous Quality: Sharp Location: Generalized Current Severity: Mild Maximum Severity: Severe Worsened by: P.o. intake Relieved by: Nothing Associated Symptoms: Chronic diarrhea, distention with nausea and vomiting Narrative: Patient is a 42-year-old male with gastroparesis secondary to diabetes. He has type 1 diabetes. He presents because of increased pain, distention and nausea with intermittent vomiting. He also reports chronic diarrhea, 6-7 watery stools per day. Denies blood or mucus in the stool. He reports decreased urine output. He complains of thirst, dry mouth and orthostatic symptoms. He denies blurred vision. He denies trouble with speech or swallowing. He denies cardiac arrest or symptoms. Prior similar symptoms: Yes Recent Illness/Hospitalization: Yes - Past Medical History (1) Gastroparesis due to DM Status: Acute (2) Diabetes type I Status: Chronic (3) HTN (hypertension) Status: Chronic (4) IBS (irritable bowel syndrome) Status: Chronic (5) Myasthenia gravis Status: Chronic Past Medical History - Allergies and Home Meds Allergies/Adverse Reactions: Allergies levofloxacin [From Levaquin] Allergy (Verified 10/07/18 19:36) Pain in joints lisinopril Allergy (Verified 10/07/18 19:36) Angioedema losartan Allergy (Verified 10/07/18 19:36) Angioedema metoclopramide HCl [From Reglan] Allergy (Verified 10/07/18 19:36) Hives Primary Care Physician: Jose Graham MD [Primary Care Provider] - Prior records reviewed: Yes Surgical History: - - Thymectomy, cholecystectomy, teeth resection. Smoking Status: Current some day smoker Alcohol: Rare - Family History Maternal Family History: Reports: - - Crohn's disease and thyroid disease. Paternal Family History: Reports: Cancer, Hypertension, - Review of Systems General: Denies: Chills, Fever, Malaise, Subjective, Sweats Eyes: Denies: Visual changes - bilaterally, Blurred Vision - bilaterally ENT: Denies: Bilateral ear pain, Rhinorrhea, Sore throat Cardiovascular: Denies: Chest pain, Palpitations, Heart racing Respiratory: Denies: Dyspnea, Cough, Sputum, Dyspnea on exertion Gastrointestinal: Reports: Abdominal pain, Nausea, Diarrhea. Denies: Vomiting Genitourinary: Denies: Dysuria, Hematuria, Frequency Musculoskeletal: Denies: Myalgias, Arthralgias, Neck pain, Back pain, Swelling, Extremity Pain, -, - Skin: Denies: Rash, Wounds Neurological: Denies: Headache, Weakness Hematologic: Denies: Easy bruising, Easy bleeding Allergy: Denies: Uticaria, Swelling of the mouth Physical Exam Vital Signs/Narrative: Vital Signs Temp Pulse Resp BP Pulse Ox 10/07/18 19:37 98.1 F 89 17 149/79 H 99 Inital Vital Signs reviewed: Yes General: Well nourished, Well developed, No Acute Distress Head: Normocephalic, Atraumatic Eyes: Perrl, EOMI. Negative for: Pale conjunctiva, Scleral icterus, - ENT: No rhinorrhea, TM's clear, Dry mucous membranes Neck: Negative for: Supple, Nontender, No lymphadenopathy, No JVD, - Cardiovascular: Regular rate, Regular rhythm, No murmurs, Normal S1, Normal S2 Respiratory: No distress, CTA bilaterally, Chest nontender Abdomen: Soft, No masses, Tender, Hypoactive bowel sounds, - - Abdomen is tympanitic to percussion. Negative for: Nontender, Nondistended, Normal bowel sounds, Guarding, Rebound tenderness Back: Nontender, Normal Inspection Extremities: Nontender, No edema Skin: Normal color, No rash, No Trauma. Negative for: Cyanosis, Diaphoresis, Jaundice Neurological: Alert, Oriented x3, Cranial nerves II-XII grossly intact, Normal Strength, Normal Sensation Psychological: Normal affect, Normal Mood Diagnostic/Tx/Re-eval Chest X-Ray - ED: Read by ED Physician, - - View x-ray of the abdomen was interpreted by me is unremarkable. There are sternal wires are noted. Surgical clips noted for cholecystectomy abdominal portion reveals no ossific gas pattern with no edema to the bowel wall or dilation. There is increased fecal matter noted descending colon and sigmoid colon. 10/07/18 23:37 Acute Abdomen Inc Chest [RAD] Stat Laboratory Results 10/07/18 10/07/18 10/07/18 20:15 20:15 21:35 WBC 5.1 RBC 4.16 L Hgb 12.4 L Hct 36.0 L MCV 86.5 MCH 29.8 MCHC 34.4 RDW 15.1 H RDW Differential 48.0 H Plt Count 266 MPV 11.1 Immature Gran % (Auto) 0.400 Neut % (Auto) 67.9 Lymph % (Auto) 22.0 [place] % (Auto) 6.7 Eos % (Auto) 2.2 Baso % (Auto) 0.8 Absolute Neuts (auto) 3.5 Absolute Lymphs (auto) 1.12 Total Counted Not Reportable Sodium 135 L Potassium 4.0 Chloride 102 Carbon Dioxide 26.0 Anion Gap 7 BUN 32 H Creatinine 1.92 H Estim Creat Clear Calc 44.77 Est GFR (MDRD) Af Amer 49 L Est GFR (MDRD) Non-Af 41 L BUN/Creatinine Ratio 16.7 Glucose 343 H Calcium 7.8 L Urine Color Yellow Urine Clarity Sl. Cloudy Urine pH 6.0 Ur Specific [place] 1.015 Urine Protein 500 H Urine Glucose (UA) 1000 H Urine Ketones 5 H Urine Occult Blood 10 H Urine Nitrite Negative Urine Bilirubin Negative Urine Urobilinogen Normal Ur Leukocyte Esterase Negative Urine RBC 0-5 SEEN Urine WBC 0 SEEN Ur Squamous Epith Cells 0-5 SEEN Urine Bacteria 0 SEEN Hyaline Casts 0-5 SEEN Urine Mucus 0 SEEN - Medical Decision Making Clinically patient is dehydrated. IV was established he was see 1 L normal saline. Since he is diabetic basic metabolic panel was obtained to assess glucose, anion gap and electrolytes as well as renal function. CBC was obtained. This was obtained to evaluate white count. If markedly elevated will image his abdomen. Because patient complained of persistent pain. An abdominal series was obtained. His abdominal x-ray does inconsistent. At times he guards at times he does not which would lead me to believe that he has voluntary guarding. Since his laboratory work is unremarkable there is no change in his creatinine, symmetric gravity of 1.015 which would indicate no dehydration and an abdominal series is unremarkable he will be discharged home ED Disposition - Plan for ED Patient: Disposition: Home or Assisted Living Diagnosis: Acute generalized abdominal pain, Hyperglycemia due to type 1 diabetes mellitus, History of diabetic gastroparesis Instructions: ABDOMINAL PAIN, Unkown Cause, (Male), ED Diabetic Gastroparesis Referrals: Jose Graham MD [Primary Care Provider] - 3-5 Days if not improving
[2018-10-07 20:21] LABS: Absolute Lymphocyte Count 1.12 X10^3/ul (0.83-4.51); Absolute Neutrophil Count 3.5 X10^3/uL (2.0-7.7); Basophil# 0.04 X10^3/uL; Basophil% 0.8 % (0-1); Eosinophil# 0.11 X10^3/uL; Eosinophils% 2.2 % (0-5); Hemoglobin 12.4 g/dl (13.0-16.5); Lymphocyte # 1.12 X10^3/ul (4.0); Mean Corp Hgb Conc 34.4 g/gl (32-36); Mean Corpuscular Hgb 29.8 pg (27.0-32.0); Mean Corpuscular Volume 86.5 fL (80-94); Mean Platelet Vol. 11.1 fl (6.2-12.0); Monocyte# 0.34 X10^3/uL; Monocyte% 6.7 % (0-10); Neutrophil # 3.45 X10^3/uL (2.7-7.7); Neutrophil % 67.9 % (47-70); Platelet Count 266 K/mm3 (150-450); RBC Distribution Width CV 15.1 % (11.6-14.6); Red Blood Count 4.16 M/mm3 (4.6-6.2); White Blood Count 5.1 K/mm3 (4.4-11.0)
[2018-10-07] MEDS: Morphine 4 MG/ML Syringe IV (20:25)
[2018-10-07] MEDS: 0.9% Normal Saline 1,000 ML 1000 ML IV (20:25)
[2018-10-07 20:26] LABS: POSITIVE DIFFERENTIAL NO; POSITIVE MORPHOLOGY NO
[2018-10-07] MEDS: Ondansetron 4 MG/2 ML Vial IV (20:26)
[2018-10-07 20:27] LABS: POSITIVE COUNT NO
[2018-10-07 20:35] LABS: Anion Gap 7 (5-15); BUN 32 mg/dL (7-18); BUN/Creat Ratio 16.7 RATIO (10-20); Calcium,Total 7.8 mg/dL (8.5-10.1); Chloride 102 mmol/L (98-107); Creatinine, Serum 1.92 mg/dL (0.70-1.30); EST Glomerular Filtration Rate 41 mL/min (>60); Est Glom Filt Rate - Afr Amer 49 mL/min (>60); Estimated Creatinine Clearance 44.77 ml/min; Glucose 343 mg/dL (74-106); Sodium Level 135 mmol/L (136-145)
[2018-10-07] MEDS: Dicyclomine 10 MG Capsule 20 MG PO (20:54)
[2018-10-07 20:57] VITALS: BP 165/99; PULSE 85; RESP 17; O2SAT 97
[2018-10-07 21:40] LABS: Bacteria 0 SEEN /hpf (None Seen); Mucous, Urine 0 SEEN /hpf (<or=2+); White Blood Cells 0 SEEN /hpf (0-5)
[2018-10-07 21:47] LABS: Color, Urine Yellow (Yellow); Glucose, Dipstick 1000 mg/dl (Normal); Ketone-Dipstick 5 mg/dl (Negative); Leukocyte Esterase-Dipstick Negative /ul (Negative); Nitrite-Dipstick Negative (Negative); Occult Blood-Urine 10 /ul (Negative); Protein-Dipstick 500 mg/dl (Negative); Specific Gravity, Urine 1.015 (1.002-1.030); Urine Bilirubin Dipstick Negative (Negative); Urine Clarity Sl. Cloudy (Clear); Urine Urobilinogen Normal (Normal)
[2018-10-07 21:57] LABS: Hyaline Cast 0-5 SEEN /lpf (0-5); Red Blood Cells-Urine 0-5 SEEN /hpf (0-5); Squamous Epithelial Cells - UA 0-5 SEEN /hpf (0-5)
[2018-10-07 22:13] VITALS: BP 167/97; PULSE 87; RESP 16; O2SAT 98
--- NOTE | 2018-10-07 23:37 | RAD_ITS ---
HISTORY: ABDOMEN PAIN AND NAUSEA EXAM: Abdomen acute series with chest. COMPARISON: Comparison CT scan of the lower lungs and abdomen and pelvis is August 30, 2018. No previous imaging of the chest FINDINGS: # of images incl. paperwork: 5 Sternal wires and mediastinal clips. Additional surgical clips about the pericardium likely related to previous CABG and were also present on the previous CT scan. Heart silhouette and mediastinal contours are normal. Lungs are clear. No effusions are present. No free air is present under the diaphragm. Cholecystectomy clips No osseous abnormalities are demonstrated. Bowel-gas pattern is normal. No organomegaly is present. RAD/Acute Abdomen Inc Chest IMPRESSION: No acute thoracic or abdominal disease perceived. at 0017 Reported and signed by: Ziggy Waller MD Electronically Signed: Ziggy Waller MD at 0:16 EDT Tel , Service support ,
[2018-10-08 00:22] VITALS: RESP 16
== END 2018-10-08 00:22 | disposition home or self-care (01) ==
PROVIDERS: Emergency Provider Emergency Medicine; Family Provider Family Medicine; PCP Family Medicine
DX: R10.84 Generalized abdominal pain (principal); E10.65 Type 1 diabetes mellitus with hyperglycemia; E10.43 Type 1 diabetes mellitus with diabetic autonomic (poly)neuropathy; K31.84 Gastroparesis; I10 Essential (primary) hypertension; K58.9 Irritable bowel syndrome, unspecified; G70.00 Myasthenia gravis without (acute) exacerbation; Z90.49 Acquired absence of other specified parts of digestive tract; Z79.4 Long term (current) use of insulin; Z79.899 Other long term (current) drug therapy; F17.200 Nicotine dependence, unspecified, uncomplicated
CPT/HCPCS: 74022; 80048; 81001; 85025; 96361; 96374; 96375; 99283; J7030; A4216; J2405

== ENCOUNTER → 2018-10-23 09:37 | Outpatient (CLI) | payer MEDICARE, SELFPAY ==
[2018-10-07 19:37] VITALS: BMI 23.5
[2018-10-23 11:40] LABS: Albumin, Serum 1.2 g/dL (3.2-5.0); BUN 30 mg/dL (7-18); Chloride 104 mmol/L (98-107); Creatinine, Serum 2.14 mg/dL (0.70-1.30); EST Glomerular Filtration Rate 36 mL/min (>60); Est Glom Filt Rate - Afr Amer 43 mL/min (>60); Glucose 210 mg/dL (74-106); Potassium 4.1 mmol/L (3.5-5.1); Sodium Level 137 mmol/L (136-145)
== END ==
PROVIDERS: Family Provider Family Medicine; PCP Family Medicine; Referring Provider Internal Medicine Nephrology; Visit Provider Internal Medicine Nephrology
DX: N18.2 Chronic kidney disease, stage 2 (mild) (principal)
CPT/HCPCS: 36415; 80069

== ENCOUNTER → 2018-11-15 08:25 | Outpatient (CLI) | payer MEDICARE, SELFPAY ==
[2018-11-15 09:32] LABS: Albumin, Serum 1.4 g/dL (3.2-5.0); BUN 34 mg/dL (7-18); BUN/Creat Ratio 14.3 RATIO (10-20); Calcium,Total 8.2 mg/dL (8.5-10.1); Chloride 103 mmol/L (98-107); Creatinine, Serum 2.37 mg/dL (0.70-1.30); EST Glomerular Filtration Rate 32 mL/min (>60); Est Glom Filt Rate - Afr Amer 39 mL/min (>60); Glucose 114 mg/dL (74-106); Phosphorus 3.3 mg/dL (2.5-4.9); Sodium Level 140 mmol/L (136-145)
== END ==
PROVIDERS: Family Provider Family Medicine; PCP Family Medicine; Referring Provider Internal Medicine Nephrology; Visit Provider Internal Medicine Nephrology
DX: N18.2 Chronic kidney disease, stage 2 (mild) (principal)
CPT/HCPCS: 36415; 80069

== ENCOUNTER → 2018-11-27 07:51 | Outpatient (CLI) | payer MEDICARE, SELFPAY ==
[2018-11-27 08:14] LABS: Hemoglobin 11.7 g/dL (13.0-16.5); Mean Corp Hgb Conc 31.6 g/dL (32-36); Mean Corpuscular Hgb 29.8 pg (27.0-32.0); Mean Corpuscular Volume 94.1 fL (80-94); Mean Platelet Vol. 11.2 fl (6.2-12.0); Platelet Count 303 K/mm3 (150-450); RBC Distribution Width CV 15.1 % (11.6-14.6); RBC Distribution Width SD 52.4 fl (35.1-43.9); Red Blood Count 3.93 M/mm3 (4.6-6.2); White Blood Count 5.1 K/mm3 (4.4-11.0)
[2018-11-27 08:20] LABS: International Normalized Ratio 0.8; Partial Thromboplast Time 29.1 Seconds (24.1-36.2)
== END ==
PROVIDERS: Family Provider Family Medicine; PCP Family Medicine; Referring Provider Internal Medicine Nephrology; Visit Provider Internal Medicine Nephrology
DX: E10.21 Type 1 diabetes mellitus with diabetic nephropathy (principal); N04.9 Nephrotic syndrome with unspecified morphologic changes
CPT/HCPCS: 36415; 85027; 85610; 85730

== ENCOUNTER → 2018-11-28 08:54 | Outpatient (CLI) | payer MEDICARE, SELFPAY ==
[2018-11-28] VITALS (10 sets, daily range): BP systolic 115–173; BP diastolic 62–102; PULSE 63–73; RESP 10–18; TEMP 36.4; O2SAT 91–121; BMI 20.1
--- NOTE | 2018-11-28 | KI_PTH ---
PATIENT: AMARILYS K[facility]ISER Jr. LOC: CT U#:[id number] AGE/SX: 49/M ROOM: RE11/28/[address]: Dr. Noble Rhodes MD : 1975 BED: DIS: SPEC #: [id number] RECD: 11/28/18 13:44 STATUS: KAROL RE #: [id number] MARTA: 11/28/18 00:[address]: Nina Vang DEPT: SURGICAL PATHOLOGY RECD BY: Floresita Miguel ENTERED: 11/28/18 13:45 SP TYPE: KIDNEY BX OTHR DR: MD Dr. Nina Jackson DO Dr. Tai Chi Kwok, MD Tissues: Kidney, NOS Procedures: Electron Microscopy ([facility]) Sp St Grp II Kidney ([facility]) Kidney Biopsy ([facility]) Comments: @ Ordering doctor for SUIV edited from to @ by RGOOD at 11/28/18 1524 @ Submitting doctor edited from to @ by RGOOD at 11/28/18 1524 HEADER OPERATION: CT guided right kidney biopsy PRE-OP DIAGNOSIS: Nephrotic syndrome. No history available from Dr. Vang's office or [place] medical records. TISSUE SUBMITTED: Right kidney, 18 gauge core x3 MICROSCOPIC DIAGNOSIS Right kidney, biopsies: Renal tissue with glomerulosclerosis, glomerular mesangial expansion and capillary thickening, prominent Kimmelstiel-Praveen nodules, moderate interstitial fibrosis, acute tubular necrosis and arteriole intimal thickening, consistent with diabetic nephropathy. COMMENT Correlate clinically with history and onset of symptoms. No history is available for review. The findings are quite supportive of diabetic nephropathy with chronic kidney disease. There is no evidence of an immune-mediated or inflammatory glomerulopathy. No glomeruli were present in frozen tissue given for immunofluorescence; deferred. MICROSCOPIC DESCRIPTION Light microscopy examined with H & E, PAS, Nieto silver and trichrome stains yields 36 glomeruli, of which 14 are globally sclerosed. A few glomeruli are partially sclerotic. The remaining glomeruli are mildly enlarged and show marked thickening of capillary loops, mesangial expansion and prominent well-defined Kimmelstiel-Praveen nodules. There is focal Paulino's capsule fibrosis. The tubules show variable acute tubule and prominent acute tubular necrosis. There is evidence of patchy moderate tubular atrophy. The tubules show focal Tamm-Horsfall proteinaceous material accumulation. Trichrome stain shows moderate diffuse interstitial fibrosis. The interstitium also shows mild lymphocytic infiltrate with focal lymphoid aggregates. [place] red stain is negative with no evidence of amyloid deposition. Examination of the medium sized arterioles show mild intimal layer thickening. The medullary renal tissue shows rare lipofuscin type pigment. Special stain positive controls are reviewed and deemed adequate. IMMUNOFLUORESCENCE: Tissue frozen and submitted for immunofluorescence evaluation yields no glomeruli for evaluation. ELECTRON MICROSCOPY: Toluidine blue semithin sections yields four glomeruli, of which one is globally sclerosed and two are partially sclerotic (consistent with light microscopy findings). Ultrastructure examination shows glomeruli with expanded mesangial matrix showing focal pseudonodular architecture. The glomerular basement membranes show variable thickening. The podocytes show focal hypertrophic changes and rare foot process effacement. There is no evidence of mesangial or basement membrane deposits. There are rare capillary loop fibrin cap structures. The tubules show mild degenerative changes. GROSS DESCRIPTION The specimen is sent entirely to [facility] for diagnosis. Received within polytransport media labeled with the patient's name and designated kidney biopsy are three cores of?pacheco-pink tissue ranging in size from 1.7 to 1.9 cm in length. Tissue is submitted fresh for immunofluorescence, in glutaraldehyde for electron microscopy and the remaining in formalin for light microscopy (cassette A1).
--- NOTE | 2018-11-28 08:59 | CT_ITS ---
PROCEDURE: CT GUIDED PERCUTANEOUS KIDNEY BIOPSY. DATE: November 28, 2018. INDICATION: Male, 43 years old. Nephrotic syndrome. PHYSICIAN: Raciel Garcia M.D. MEDICATIONS: 2 mg of Versed and 50 mcg of fentanyl intravenously ACCESS SITE: Lower pole of the right kidney. NEEDLE: 18-gauge core biopsy needle. SPECIMEN: 3 18-gauge cores EBL: None. COMPLICATIONS: None immediate. RADIATION DOSAGE (If Supplied By Facility): CTDIvol = ( 17.5 ) mGy, DLP = ( 738.66 ) mGycm The risks, benefits, and alternatives to the procedure and sedation were explained to the patient. The specific risk of hemorrhage requiring further treatment or intervention was detailed and accepted. Written informed consent was obtained. The patient was placed on the CT table in the prone position. Multiple axial images were obtained from the lung base through the caudal extent of the kidneys. An appropriate entry site was identified and a clotilde made on the skin. The skin overlying the [ right] posterior flank was prepped and draped in sterile fashion. 1% lidocaine was administered subcutaneously for local anesthesia. Initially, a 22 gauge needle was advanced and CT images confirmed good needle position. The 22 gauge needle was then exchanged for an 17 gauge introducer needle which was advanced. Repeat CT images confirmed good needle trajectory and tip position. The introducer needle was then advanced into the periphery of the inferior renal pole, and CT images were again obtained to confirm exact tip location. The inner stylet of the introducer needle was then removed and an 18 gauge coaxial needle was advanced thru the introducer needle and biopsy performed. A total of [3 ] passes were performed and the specimen collected was sent to Pathology for further evaluation. The needle was withdrawn. Hemostasis was achieved with manual compression and a sterile dressing was applied. Repeat CT images of the biopsy area was performed which demonstrated no gross bleeding or hematoma. The patient tolerated the procedure well without immediate complications. The patient was transported to the [floor/recovery area] in stable condition. CT/Biopsy/Inj or Needle Placement IMPRESSION: Successful CT guided percutaneous kidney biopsy. Electronically Signed: Raciel Garcia, at 13:16 EDT , Service support ,
[2018-11-28] MEDS: Midazolam 2 MG/2 ML Syringe IV (11:33)
[2018-11-28] MEDS: fentaNYL 100 MCG/2 ML Ampul IV (11:35)
== END ==
PROVIDERS: Family Provider Family Medicine; PCP Family Medicine; Referring Provider Family Medicine Geriatric Medicine; Visit Provider Family Medicine Geriatric Medicine
DX: N04.9 Nephrotic syndrome with unspecified morphologic changes (principal); N17.0 Acute kidney failure with tubular necrosis; E11.21 Type 2 diabetes mellitus with diabetic nephropathy; N26.9 Renal sclerosis, unspecified
CPT/HCPCS: 50200; 77012; 88305; 88313; 88348; 99156; J7040; A4216

== ENCOUNTER → 2018-12-25 07:47 | Outpatient (CLI) | payer MEDICARE, SELFPAY ==
[2018-11-28 09:15] VITALS: BMI 20.1
[2018-12-25 09:18] LABS: Hematocrit 35.5 % (40-54); Hemoglobin 11.6 g/dL (13.0-16.5); Mean Corp Hgb Conc 32.7 g/dL (32-36); Mean Corpuscular Hgb 30.1 pg (27.0-32.0); Mean Platelet Vol. 11.7 fl (6.2-12.0); Platelet Count 429 K/mm3 (150-450); RBC Distribution Width CV 14.9 % (11.6-14.6); RBC Distribution Width SD 49.8 fl (35.1-43.9); Red Blood Count 3.86 M/mm3 (4.6-6.2); White Blood Count 5.3 K/mm3 (4.4-11.0)
[2018-12-25 09:42] LABS: BUN 69 mg/dL (7-18); BUN/Creat Ratio 24.8 RATIO (10-20); Calcium,Total 8.6 mg/dL (8.5-10.1); Chloride 99 mmol/L (98-107); Creatinine, Serum 2.78 mg/dL (0.70-1.30); EST Glomerular Filtration Rate 27 mL/min (>60); Est Glom Filt Rate - Afr Amer 32 mL/min (>60); Glucose 267 mg/dL (74-106); Phosphorus 5.9 mg/dL (2.5-4.9); Potassium 3.6 mmol/L (3.5-5.1); Sodium Level 137 mmol/L (136-145)
[2018-12-25 09:45] LABS: Protein, Urine (Random) 406.9 mg/dL (<11.9); Protein:Creat Ratio 11462 mg/g CRE (0-200)
[2018-12-25 09:48] LABS: PTHIN 114.6 pg/mL (18.4-80.1)
== END ==
PROVIDERS: Family Provider Family Medicine; PCP Family Medicine; Referring Provider Internal Medicine Nephrology; Visit Provider Internal Medicine Nephrology
DX: N18.2 Chronic kidney disease, stage 2 (mild) (principal); N17.9 Acute kidney failure, unspecified; E10.21 Type 1 diabetes mellitus with diabetic nephropathy
CPT/HCPCS: 36415; 80069; 82570; 83970; 84156; 85027

== ENCOUNTER 2019-02-25 09:33 | Outpatient (RCR) | payer MEDICARE, SELFPAY ==
[2018-11-28 09:15] VITALS: BMI 20.1
[2019-02-25 16:59] LABS: Anion Gap 5 (5-15); BUN 68 mg/dL (7-18); BUN/Creat Ratio 19.2 RATIO (10-20); Calcium,Total 8.3 mg/dL (8.5-10.1); Chloride 110 mmol/L (98-107); Creatinine, Serum 3.55 mg/dL (0.70-1.30); EST Glomerular Filtration Rate 20 mL/min (>60); Est Glom Filt Rate - Afr Amer 24 mL/min (>60); Glucose 142 mg/dL (74-106); Sodium Level 139 mmol/L (136-145)
== END 2019-02-25 18:00 | disposition home or self-care (01) ==
LOC: POLAB3 09:33
PROVIDERS: Family Provider Family Medicine; PCP Family Medicine; Referring Provider Internal Medicine Nephrology; Visit Provider Internal Medicine Nephrology
DX: N17.9 Acute kidney failure, unspecified (principal)
CPT/HCPCS: 36415; 80048

== ENCOUNTER → 2019-03-08 07:42 | Outpatient (CLI) | payer MEDICARE, SELFPAY ==
[2018-11-28 09:15] VITALS: BMI 20.1
--- NOTE | 2019-03-08 07:46 | VDUE_ITS ---
Reason For Study: CKD4 Right Arm Left Arm Right Cephalic Vein at the wrist measures Left Cephalic Vein at the wrist measures 0.09 x 0.09 cm. 0.32 x 0.34 cm. Right Cephalic Vein in the forearm measures Left Cephalic Vein in the forearm measures 0.20 x 0.21 cm. 0.29 x 0.30 cm. Right Cephalic Vein below antecub measures Left Cephalic Vein below antecub measures 0.18 x 0.19 cm. 0.20 x 0.21 cm. Right Cephalic Vein above antecub measures Left Cephalic Vein above antecub measures 0.08 x 0.09 cm. 0.23 x 0.24 cm. Right Cephalic Vein mid bicep measures 0.05 Left Cephalic Vein at mid bicep measures x 0.04 cm. 0.22 x 0.22 cm. Right Cephalic Vein at the shoulder measures Left Cephalic Vein at the shoulder measures 0.05 x 0.05 cm. 0.26 x 0.27 cm. Right Basilic Vein at the origin measures Basilic vein at origin measures 0.33 x 0.33 0.27 x 0.25 cm. cm. Right Basilic Vein mid bicep measures 0.19 x Basilic vein at bicep measures 0.25 x 0.26 0.20 cm. cm. Right Basilic Vein above antecub measures Basilic vein above antecub measures 0.25 x 0.21 x 0.22 cm. 0.27 cm. Right Brachial artery measure 0.47 x 0.47 cm Left Brachial artery measures 0.45 x 0.46 cm with a velocity of 63 cm/sec. with a velocity of 65.9 cm/sec. Right Radial artery measures 0.26 x 0.28 cm Left Radial artery measures 0.25 x 0.26 cm with a velocity of 52.3 cm/sec. with a velocity of 43.5 cm/sec. Interpretation Summary Patent and compressible bilateral upper extremity cephalic and basilic veins with dimensions as noted Normal diameter and flow bilateral brachial and radial arteries Ordering Physician: Nina Vang Referring Physician: Bucky Graham Performed By: Claudia Palomo RVT ?
== END ==
PROVIDERS: Family Provider Family Medicine; PCP Family Medicine; Referring Provider Internal Medicine Nephrology; Visit Provider Internal Medicine Nephrology
DX: Z01.818 Encounter for other preprocedural examination (principal); N18.4 Chronic kidney disease, stage 4 (severe)
CPT/HCPCS: 93970; 93971; G0365

== ENCOUNTER 2019-03-29 08:39 | Day surgery (SDC) | payer MEDICARE, SELFPAY ==
--- NOTE | 2019-03-12 01:11 | HP_ITS ---
Intake Vital Signs 03/12/19 Height 5 ft 5 in 03/12/19 Weight: 118 lb 4 oz 03/12/19 BMI 19.6 03/12/19 BP 110/71 03/12/19 Blood Pressure Location Rt brachial 03/12/19 Position Sitting 03/12/19 Respiration 18 03/12/19 BMI 20.1 Intake Visit Reasons: NEEDS FISTULA/DR VANG ORDERING VEIN MAPPING Chief Complaint: redness, pain, wound rt lower ext Allergies levofloxacin [From Levaquin] Allergy (Verified 10/07/18 19:36) Pain in joints lisinopril Allergy (Verified 10/07/18 19:36) Angioedema losartan Allergy (Verified 10/07/18 19:36) Angioedema metoclopramide HCl [From Reglan] Allergy (Verified 10/07/18 19:36) Hives Medications Insulin Aspart [Novolog Flexpen] 0 units SUBCUT TIDCM 12/28/12 [History Confirmed 03/12/19] Albuterol Inhaler [Ventolin Hfa] 2 puff INHALATION Q4H PRN PRN 08/19/14 [History Confirmed 11/28/18] Budesonide/Formoterol 160/4.5 [Symbicort 160/4.5 Mcg Inhaler (SP)] 2 puff INHALATION BID 02/23/16 [History Confirmed 03/12/19] Sucralfate 1 gm PO 4X/DAY 06/21/16 [History Confirmed 03/12/19] Pyridostigmine [place] [Mestinon] 60 mg PO TID PRN PRN 12/03/16 [History Confirmed 03/12/19] Amlodipine [Norvasc] 10 mg PO DAILY 08/30/18 [History Confirmed 11/28/18] Insulin Detemir [Levemir (BKC)] 12 units SUBCUT DAILY 08/30/18 [History Confirmed 03/12/19] Levothyroxine [Synthroid] 50 mcg PO DAILY 08/30/18 [History Confirmed 03/12/19] Phenergan tablet 25 mg PO PRN PRN 08/30/18 [History Confirmed 03/12/19] Ursodiol 250 mg PO TID 08/30/18 [History Confirmed 03/12/19] hydrOXYzine pamoate capsule [Vistaril pamoate capsule] 25 mg PO TID PRN PRN 08/30/18 [History Confirmed 03/12/19] amitriptyline 10 mg tablet 10 mg PO DAILY 03/12/19 [History Confirmed 03/12/19] aprepitant 80 mg capsule 80 mg PO DAILY 03/12/19 [History Confirmed 03/12/19] azathioprine 50 mg tablet 50 mg PO DAILY 03/12/19 [History Confirmed 03/12/19] budesonide-formoterol HFA 80 mcg-4.5 mcg/actuation aerosol inhaler 2 puff INHALATION BID 03/12/19 [History Confirmed 03/12/19] cyclobenzaprine 10 mg tablet 10 mg PO HS 03/12/19 [History Confirmed 03/12/19] diltiazem HCl 300 mg capsule,24 hr,extended release 300 mg PO DAILY 03/12/19 [History Confirmed 03/12/19] duloxetine 60 mg capsule,delayed release 60 mg PO DAILY 03/12/19 [History Confirmed 03/12/19] furosemide 20 mg tablet 20 mg PO DAILY 03/12/19 [History Confirmed 03/12/19] furosemide 20 mg tablet 40 mg PO DAILY tab 03/12/19 [History Confirmed 03/12/19] gabapentin 300 mg capsule 600 mg PO TID cap 03/12/19 [History Confirmed 03/12/19] hydrochlorothiazide 50 mg tablet 50 mg PO DAILY 03/12/19 [History Confirmed 03/12/19] metolazone 5 mg tablet 5 mg PO DAILY 03/12/19 [History Confirmed 03/12/19] metoprolol tartrate 50 mg tablet 100 mg PO BID tab 03/12/19 [History Confirmed 03/12/19] omeprazole 10 mg capsule,delayed release 40 mg PO DAILY cap 03/12/19 [History Confirmed 03/12/19] pantoprazole 40 mg granules delayed-release for susp in packet 40 mg PO DAILY 03/12/19 [History Confirmed 03/12/19] prednisone 20 mg tablet 10 mg PO DAILY tab 03/12/19 [History Confirmed 03/12/19] pregabalin 50 mg capsule 50 mg PO TID 03/12/19 [History Confirmed 03/12/19] pregabalin 75 mg capsule 75 mg PO BID 03/12/19 [History Confirmed 03/12/19] sertraline 50 mg tablet 100 mg PO BID tab 03/12/19 [History Confirmed 03/12/19] FOR[facility]LY [facility] Medical History Gastroparesis due to DM (Acute) Cellulitis of right leg (Acute) IBS (irritable bowel syndrome) (Chronic) HTN (hypertension) (Chronic) Diabetes type I (Chronic) Myasthenia gravis (Chronic) Surgical History S/P thymectomy (Acute) Status post laparoscopic cholecystectomy (Acute) Family History Father Cancer Hypertension Mother Thyroid disorder Social History (Updated 03/12/19 @ 13:15 by Chao Wei MD) Smoking Status: Current every day smoker alcohol intake: never substance use type: marijuana HPI HPI HPI: AMARILYS KAISER, is a 43 M who presents to the office today for HPI HPI Surgical H&P: Yes HPI: AMARILYS KAISER, is a 43 M who presents to the office today for surgical consultation regarding creation of a arteriovenous hemodialysis fistula. The patient is referred by Dr. Nina Vang and a written copy of my surgical consult recommendations will return to her. 40-year-old gentleman with type 1 diabetes. He has been noncompliant for multiple years. He currently has gone from having a hemoglobin A1c of 13 down to 7.2 utilizing an insulin pump. He has been an almost lifelong cigarette smoker at the rate of a pack and 1/2/day. He has gastroparesis myasthenia gravis. He gets routine IVs for routine myasthenia gravis injections. He is right arm dominant. He had the following vein mapping procedure with findings as noted. [facility] [address] [place] [address] Saphenous Vein Mapping, Bilat 03/08/19 0807 MR#: [id number] Name:JOBAMARILYSRUBENS Renee Jr.Rep #:[id number] : 1975 43From:Chao Wei MD Attending Dr: Max Vang DOus: REG CLI Ordering Dr: Nina Vang DODate: 03/08/19 Location:CVSSex: Admitted: Reason For Study: CKD4 Right Arm Left Arm Right Cephalic Vein at the wrist measures Left Cephalic Vein at the wrist measures 0.09 x 0.09 cm. 0.32 x 0.34 cm. Right Cephalic Vein in the forearm measures Left Cephalic Vein in the forearm measures 0.20 x 0.21 cm. 0.29 x 0.30 cm. Right Cephalic Vein below antecub measures Left Cephalic Vein below antecub measures 0.18 x 0.19 cm. 0.20 x 0.21 cm. Right Cephalic Vein above antecub measures Left Cephalic Vein above antecub measures 0.08 x 0.09 cm. 0.23 x 0.24 cm. Right Cephalic Vein mid bicep measures 0.05 Left Cephalic Vein at mid bicep measures x 0.04 cm. 0.22 x 0.22 cm. Right Cephalic Vein at the shoulder measures Left Cephalic Vein at the shoulder measures 0.05 x 0.05 cm. 0.26 x 0.27 cm. Right Basilic Vein at the origin measures Basilic vein at origin measures 0.33 x 0.33 0.27 x 0.25 cm. cm. Right Basilic Vein mid bicep measures 0.19 x Basilic vein at bicep measures 0.25 x 0.26 0.20 cm. cm. Right Basilic Vein above antecub measures Basilic vein above antecub measures 0.25 x 0.21 x 0.22 cm. 0.27 cm. Right Brachial artery measure 0.47 x 0.47 cm Left Brachial artery measures 0.45 x 0.46 cm with a velocity of 63 cm/sec. with a velocity of 65.9 cm/sec. Right Radial artery measures 0.26 x 0.28 cm Left Radial artery measures 0.25 x 0.26 cm with a velocity of 52.3 cm/sec. with a velocity of 43.5 cm/sec. Interpretation Summary Patent and compressible bilateral upper extremity cephalic and basilic veins with dimensions as noted Normal diameter and flow bilateral brachial and radial arteries Ordering Physician: Nina Vang Referring Physician: Bucky Graham Performed By: Claudia Palomo RVT ? 03/08/19 1244 Date Chao Wei MD ROS General General: Yes weight change and fatigue; no appetite, colon cancer, breast cancer or weakness HEENT HEENT: No difficulty swallowing, eye injury, eye surgery, swollen glands or hoarseness Endo Endocrine: Yes thyroid disease and diabetes mellitus; no thyroid cancer, Hair loss, heat intolerance or cold intolerance Skin Skin: No rash or changing moles Breast Breast: No left breast lump, right breast lump, breast pain, abnormal mammogram, abnormal US or breast enlargement Musc Musculoskeletal: Yes back problems; no arthritis, rheumatoid arthritis, gout or joint pain Cardio Cardiovascular: Yes high blood pressure; no murmur, pacemaker, heart disease, atrial fibrillation, heart attack, heart stent, palpitations, shortness of breat with exertion or chest pain Psych Psychiatric: Yes depression and anxiety; no hearing voices Resp Respiratory: Yes shortness of breath, No sleep apnea, Yes cough, No COPD, Yes asthma, Yes emphysema, No wheezing Gastro Gastrointestinal: Yes abdominal pain, Yes nausea or vomiting, Yes diarrhea, Yes constipation, No blood in stool, Yes acid reflux, No hemorrhoids, No ulcers, No gallbladder problem, No black,tarry stools [place] Hematologic: No blood thinners, No blood disorders, No bleeding, No anemia, No blood clots Neuro Neurologic: No system reviewed and no additional complaints, except as docu, No as per HPI, No abnormal walking, No abnormal hearing, No abnormal movements, No abnormal speech, No behavioral changes, No burning sensations, No confusion, No seizure-like activity, No unsteadiness, No dizziness, No localized weakness, No frequent falls, No headache(s), No lack of coordination, No loss of vision, No memory loss, Yes numbness, No other visual disturbances, No radiating pain, No restless legs, No sensory deficit, No fainting, Yes tingling, No tremor(s), No weakness, No other Exam Const General: cooperative, no acute distress Nutritional Appearance: underweight Orientation: alert, awake, oriented x3 Chest Other: Increased anterior posterior diameter Resp Effort & Inspection: normal respiratory effort Auscultation: clear to auscultation bilaterally Cardio Heart Sounds: no murmurs GI Palpation: soft, no hepatosplenomegaly Auscultation: normal bowel sounds Skin General: no rashes or lesions noted Neuro Cognition: normal cognition Extrem Other: 3+ left radial pulse. Marco A test demonstrates adequate left ulnar flow. The left forearm cephalic and basilic veins both appear to be quite viable. They appear to be much larger than vein mapping size. Psych Affect: normal affect Assessment & Plan Problems 1. Chronic renal failure, stage 4 (severe) N18.4 Plan 43-year-old gentleman who by report has type 1 diabetes that was poorly controlled now with stage IV renal failure. In addition to that he has gastroparesis and other abdominal complaints. He has myasthenia gravis requiring routine IV injections. He is right arm dominant. My clinical examination suggests actually that the left forearm cephalic and basilic veins are reasonable for fistula creation. He seems to have a strong left radial pulse. I recommend to him a left forearm radial cephalic Arlen hemodialysis fistula creation and I have discussed the technique, benefits, risks, alternatives. This can be pursued under monitored anesthesia care local anesthetic. No guarantees of success have been offered. He has had an opportunity to ask and have questions answered. We will schedule and proceed at his discretion. It is of note that the cephalic vein branch is just slightly more proximal in the left distal forearm. The fistula may need to be performed slightly more proximally on the left at that bifurcation site. The cephalic vein is nicely more generous at that location. Cc: Dr. Bucky Graham and Dr. Nina Wei M.D., F.A.C.S. Coding Level of Care Code 05812 Diagnoses Chronic renal failure, stage 4 (severe) N18.4 03/12/19 8515 <Electronically signed by Chao szymanski MD> Date _ hCao Wei MD The patient is noted to have a slightly low glucose today on laboratory exam. He has been treated with dextrose solution per anesthesia. We anticipate proceeding as noted with creation of a left forearm radiocephalic arteriovenous hemodialysis fistula. Chao Wei M.D., F.A.C.S.
[2019-03-12 13:07] VITALS: BMI 19.6
--- NOTE | 2019-03-25 08:52 | EKG12_ITS ---
Test Reason : PRE OP Blood Pressure : / mmHG Vent. Rate : 082 BPM Atrial Rate : 082 BPM P-R Int : 134 ms QRS Dur : 088 ms QT Int : 376 ms P-R-T Axes : 080 080 065 degrees QTc Int : 439 ms Normal sinus rhythm Normal ECG Confirmed by CARMEN PACHECO, MICHELLE ([id number]), order editor BART GATES ([id number]) on 03/26/2019 9:25:33 AM Referred By: Chao Wei Confirmed By:MICHELLE MORAELS MD
[2019-03-25 09:13] LABS: Hematocrit 31.8 % (40-54); Hemoglobin 10.6 g/dL (13.0-16.5); Mean Corp Hgb Conc 33.3 g/dL (32-36); Mean Corpuscular Hgb 31.9 pg (27.0-32.0); Mean Corpuscular Volume 95.8 fL (80-94); Mean Platelet Vol. 12.1 fl (6.2-12.0); Platelet Count 277 K/mm3 (150-450); RBC Distribution Width SD 63.4 fl (35.1-43.9); Red Blood Count 3.32 M/mm3 (4.6-6.2); White Blood Count 5.4 K/mm3 (4.4-11.0)
[2019-03-25 09:32] LABS: Anion Gap 3 (5-15); BUN 59 mg/dL (7-18); BUN/Creat Ratio 18.4 RATIO (10-20); Calcium,Total 8.3 mg/dL (8.5-10.1); Chloride 109 mmol/L (98-107); Creatinine, Serum 3.21 mg/dL (0.70-1.30); EST Glomerular Filtration Rate 22 mL/min (>60); Est Glom Filt Rate - Afr Amer 27 mL/min (>60); Glucose 119 mg/dL (74-106); Potassium 3.8 mmol/L (3.5-5.1); Sodium Level 137 mmol/L (136-145)
[2019-03-29 09:15] VITALS: BP 151/91; PULSE 62; RESP 15; TEMP 36.5; O2SAT 100; BMI 19.1
[2019-03-29] MEDS: 0.45% Normal Saline 1,000 ML 60 ML IV (09:28)
[2019-03-29 09:56] LABS: Bedside Glucose 49 mg/dL (70-110)
[2019-03-29] MEDS: Dextrose 10%-Water 250 ML 999 ML IV (10:09)
--- NOTE | 2019-03-29 10:41 | PCM.DC.FIST ---
Discharge Diet: Renal Diet Discharge Activity: May Not Drive - for 2-3 days or while taking narcotic pain medications., May Shower, May Take a Tub Bath - in 5 days. Lifting Restrictions: 5 pounds Keep extremity elevated above heart level: - - Keep arm elevated above the heart level for 3 days. Additional Activity Instructions:: Exercise hand vigorously with a stress ball. Call your doctor if your incision/area has: Continuous Slow Oozing, Sudden Increased Bleeding - apply pressure and call your doctor., Increased Pain/ Swelling, Increased Redness, Foul Smelling Discharge Call your doctor if you observe: Fever of 101 or Higher Suture Line Care: Avoid Pulling/Pushing, Avoid Pinching/Bending Cleanse incision/area with: Keep Dressing Clean & Dry Additional Dressing/Incision Instructions:: Change or remove dressing in one day. May protect with a gauze bandaid. Allergies/Adverse Reactions: Allergies levofloxacin [From Levaquin] Allergy (Verified 03/29/19 09:03) Pain in joints lisinopril Allergy (Verified 03/29/19 09:03) Angioedema losartan Allergy (Verified 03/29/19 09:03) Angioedema metoclopramide HCl [From Reglan] Allergy (Verified 03/29/19 09:03) Hives Medications to take at Discharge Albuterol Inhaler [Ventolin Hfa] 2 puff INHALATION Q4H PRN PRN 08/19/14 Budesonide/Formoterol 160/4.5 [Symbicort 160/4.5 Mcg Inhaler (SP)] 2 puff INHALATION BID 02/23/16 Pyridostigmine [place] [Mestinon] 60 mg PO TID PRN PRN 12/03/16 Amlodipine [Norvasc] 10 mg PO DAILY 08/30/18 Levothyroxine [Synthroid] 50 mcg PO DAILY 08/30/18 Phenergan tablet 25 mg PO PRN PRN 08/30/18 amitriptyline 10 mg tablet 10 mg PO DAILY 03/12/19 azathioprine 50 mg tablet 50 mg PO DAILY 03/12/19 cyclobenzaprine 10 mg tablet 10 mg PO HS PRN 03/12/19 duloxetine 60 mg capsule,delayed release 60 mg PO DAILY 03/12/19 furosemide 20 mg tablet 80 mg PO BID tab 03/12/19 metolazone 5 mg tablet 5 mg PO DAILY 03/12/19 metoprolol tartrate 50 mg tablet 100 mg PO BID tab 03/12/19 omeprazole 10 mg capsule,delayed release 40 mg PO DAILY cap 03/12/19 Insulin Pump/Infus. Set/Meter 0 03/22/19 Montelukast Sodium [Singulair] 10 mg PO DAILY 03/22/19 Ondansetron [Zofran Odt] 4 mg PO Q12H PRN PRN 03/22/19 Pregabalin [Lyrica] 75 mg PO BID 03/22/19 Orders to be completed after discharge: Basic Metabolic Profile (BMP) Time Frame: 03/22/19, Facility: [facility], Location: Laboratory CBC-Complete Blood Cnt No Diff Time Frame: 03/22/19, Facility: [facility], Location: Laboratory Primary Care Physician: Jose Graham MD [Primary Care Provider] - Test Results: Test results from this visit will be discussed in further detail at your follow-up appointment, if applicable. Please Follow Up With: Chao Wei MD - [phone] When: Call to make an appointment for suture removal and follow up in 1 week.
[2019-03-29] MEDS: Heparin Injection (Vial) 5,000 UNIT/ML VIAL 5000 UNIT (11:00)
[2019-03-29] MEDS: Bupivacaine Mpf 0.5% 30 ML VIAL (11:10)
--- NOTE | 2019-03-29 11:58 | PCM.OPRPT ---
Problem List (1) Chronic renal failure, stage 4 (severe) Status: Chronic Report of Operation Date of Procedure: 03/29/19 Pre-Operative Diagnosis: Stage IV chronic renal insufficiency Post-Operative Diagnosis: Same Surgery/Procedure Performed:: Left forearm radiocephalic arteriovenous hemodialysis fistula creation Description of Surgical Findings:: Timeout informed consent was obtained. 43-year-old gentleman taken the operating placement table underwent monitored anesthesia care. The left extremity sterilely prepped and draped. 1% lidocaine mixed 50-50 with 0.5% Marcaine was used as a local anesthetic. Total 10 cc was used. An oblique incision was made in the left radial wrist area after local instillation chart of sections used to identify the cephalic vein at a branch point. I then identified the radial artery. The vein was ligated distally with hemoclips and that was spatulated at the branch point to allow for a larger anastomosis. Patient received 5000's of heparin. Peripheral astral clamps were placed on the radial artery and 11 blade was used to make an arteriotomy which is stented with Stone scissors. A end-to-side anastomosis created with running 7-0 Prolene. Very nice anastomosis was achieved. Clamps were placed. Good flow was noted. Hemostasis was intact. The patient received 20 mg of protamine. The subdermal tissues approximated up to 3-0 Vicryl. Skin edges approximated running septic or 4 Monocryl. Steri-Strips Telfa tape dressing applied. Sponge and instrument and needle counts reported surgical correct. Hand was viable no apparent complication. Specimens none. Drains none. Blood loss minimal. The patient was taken to the recovery area in satisfactory edition without apparent complication Chao Wei M.D., F.A.C.S. Type of Anesthesia:: Local MAC Anesthesiologist: Robi Alvarez
[2019-03-29 12:02] VITALS: BP 147/90; BP 151/91; PULSE 65; RESP 16; TEMP 36.2; O2SAT 99
[2019-03-29 12:10] VITALS: BP 133/77; BP 151/91; PULSE 62; RESP 16; O2SAT 99
[2019-03-29 12:15] VITALS: BP 137/93; BP 151/91; PULSE 65; RESP 16; O2SAT 99
[2019-03-29 12:20] VITALS: BP 149/92; BP 151/91; PULSE 62; RESP 16; TEMP 35.8; O2SAT 100
[2019-03-29] MEDS: HYDROcodone Bitartrate/Apap 5/325 Tablet PO (12:49)
[2019-03-29 13:36] VITALS: BP 143/90; BP 151/91; PULSE 68; RESP 18; TEMP 36.1; O2SAT 100
== END 2019-03-29 13:43 | disposition home or self-care (01) ==
LOC: SDC 08:39 → AC 08:41
PROVIDERS: Family Provider Family Medicine; PCP Family Medicine; Referring Provider Surgery; Visit Provider Surgery
PROC: (CPT 36821; principal; 2019-03-29 10:45)
DX: E10.22 Type 1 diabetes mellitus with diabetic chronic kidney disease (principal); I12.9 Hypertensive chronic kidney disease with stage 1 through stage 4 chronic kidney disease, or unspecified chronic kidney disease; N18.4 Chronic kidney disease, stage 4 (severe); E10.43 Type 1 diabetes mellitus with diabetic autonomic (poly)neuropathy; R63.6 Underweight; Z79.4 Long term (current) use of insulin; G70.00 Myasthenia gravis without (acute) exacerbation; K31.84 Gastroparesis; F17.210 Nicotine dependence, cigarettes, uncomplicated; Z88.1 Allergy status to other antibiotic agents; Z88.8 Allergy status to other drugs, medicaments and biological substances; Z91.19 Patient's noncompliance with other medical treatment and regimen; K58.9 Irritable bowel syndrome, unspecified; Z90.49 Acquired absence of other specified parts of digestive tract
CPT/HCPCS: 01844; 36821; 36415; 80048; 82962; 85027; 93005; J7120

== ENCOUNTER → 2019-04-10 11:48 | Outpatient (CLI) | payer MEDICARE, SELFPAY ==
[2018-11-28 09:15] VITALS: BMI 20.1
[2019-03-29 09:15] VITALS: BMI 19.1
[2019-04-10 12:35] LABS: Hemoglobin 10.4 g/dL (13.0-16.5); Mean Corp Hgb Conc 33.5 g/dL (32-36); Mean Corpuscular Hgb 33.1 pg (27.0-32.0); Mean Corpuscular Volume 98.7 fL (80-94); Mean Platelet Vol. 12.5 fl (6.2-12.0); Platelet Count 198 K/mm3 (150-450); RBC Distribution Width CV 17.2 % (11.6-14.6); Red Blood Count 3.14 M/mm3 (4.6-6.2); White Blood Count 4.4 K/mm3 (4.4-11.0)
[2019-04-10 12:56] LABS: Albumin, Serum 1.7 g/dL (3.2-5.0); BUN 54 mg/dL (7-18); Calcium,Total 8.5 mg/dL (8.5-10.1); Chloride 112 mmol/L (98-107); Creatinine, Serum 3.38 mg/dL (0.70-1.30); EST Glomerular Filtration Rate 21 mL/min (>60); Est Glom Filt Rate - Afr Amer 26 mL/min (>60); Glucose 175 mg/dL (74-106); Phosphorus 4.7 mg/dL (2.5-4.9); Potassium 3.7 mmol/L (3.5-5.1); Sodium Level 138 mmol/L (136-145)
[2019-04-10 14:44] LABS: PTHIN 160.9 pg/mL (18.4-80.1)
== END ==
PROVIDERS: Family Provider Family Medicine; PCP Family Medicine; Referring Provider Internal Medicine Nephrology; Visit Provider Internal Medicine Nephrology
DX: N18.4 Chronic kidney disease, stage 4 (severe) (principal); N25.81 Secondary hyperparathyroidism of renal origin
CPT/HCPCS: 36415; 80069; 83970; 85027

== ENCOUNTER → 2019-07-16 12:06 | Outpatient (CLI) | payer MEDICARE, MEDICAID, SELFPAY ==
[2019-07-16 13:54] LABS: Hemoglobin 11.8 g/dL (13.0-16.5); Mean Corp Hgb Conc 32.8 g/dL (32-36); Mean Corpuscular Hgb 30.9 pg (27.0-32.0); Mean Corpuscular Volume 94.2 fL (80-94); Mean Platelet Vol. 12.5 fl (6.2-12.0); Platelet Count 245 K/mm3 (150-450); RBC Distribution Width CV 12.9 % (11.6-14.6); RBC Distribution Width SD 44.1 fl (35.1-43.9); Red Blood Count 3.82 M/mm3 (4.6-6.2); White Blood Count 9.4 K/mm3 (4.4-11.0)
[2019-07-16 14:09] LABS: PTHIN 379.8 pg/mL (18.4-80.1)
[2019-07-16 14:16] LABS: Albumin, Serum 1.7 g/dL (3.2-5.0); BUN 58 mg/dL (7-18); Calcium,Total 7.9 mg/dL (8.5-10.1); Chloride 110 mmol/L (98-107); Creatinine, Serum 4.14 mg/dL (0.70-1.30); EST Glomerular Filtration Rate 17 mL/min (>60); Est Glom Filt Rate - Afr Amer 20 mL/min (>60); Glucose 110 mg/dL (74-106); Phosphorus 7.5 mg/dL (2.5-4.9); Potassium 4.5 mmol/L (3.5-5.1); Sodium Level 139 mmol/L (136-145)
[2019-07-16 14:19] LABS: Vitamin D,25 Hydroxy 10.1 ng/mL
== END ==
PROVIDERS: PCP Family Medicine; Referring Provider Internal Medicine Nephrology; Visit Provider Internal Medicine Nephrology
DX: N18.4 Chronic kidney disease, stage 4 (severe) (principal); N25.81 Secondary hyperparathyroidism of renal origin; E55.9 Vitamin D deficiency, unspecified
CPT/HCPCS: 36415; 80069; 82306; 83970; 85027

== ENCOUNTER 2019-08-16 18:50 | Emergency (ER) | payer MEDICARE, MEDICAID, SELFPAY ==
[2019-08-16 18:51] VITALS: BP 152/111; PULSE 97; RESP 18; TEMP 36.1; O2SAT 99; BMI 18.8
--- NOTE | 2019-08-16 19:35 | RAD_ITS ---
STUDY: X-RAY - RIGHT SHOULDER REASON FOR EXAM: Male, 43 years old. RIGHT SHOULDER PAIN, NO KNOWN INJURY TECHNIQUE: 4 view(s) of the shoulder. COMPARISON: None. FINDINGS: Normal glenohumeral articulation. Normal acromioclavicular joint. Normal acromion. There is a well-defined 7 mm sclerotic focus of the medial humeral head. The soft tissue structures are unremarkable. Normal visualized pulmonary apex. RAD/Shoulder min 2 Views IMPRESSION: Well-defined 7 mm sclerotic focus in the medial humeral head most likely representing benign process such as bone island. Electronically Signed: Shankar Garcia MD at 20:00 EDT , Service support ,
--- NOTE | 2019-08-16 20:20 | ED.VISSUMM ---
- ER Visit Summary Date of Service: 08/16/19 Chief Complaint: [Right shoulder pain] History of Present Illness: The patient is a 43 M [does the emergency department with right shoulder pain that started 2 days ago. Patient states that he was riding his new riding mower which tends to get stuck at times and does a lot of jerking and apparently felt a pop in his right shoulder at some point. Patient did not think much of it initially but over the following couple of days started having more severe pain in his right shoulder that kind of starts mid humerus and radiates up towards his neck. Patient has pain with range of motion. Patient has history of diabetes, hypertension, myasthenia gravis, GERD] Physical Examination: [HEENT-PERRLA, EOMI. Cranial nerves II through XII grossly intact. TMs clear. Mucous membranes moist. No adenopathy. Cardiovascular-regular rate and rhythm without murmur or ectopy Lungs-clear to auscultation, chest wall stable without crepitus or subcu emphysema Abdomen-normoactive bowel sounds, soft, nontender, no rebound or rigidity, no peritoneal signs. Extremities-intact ?4, normal range of motion, normal pulses, atraumatic. Right shoulder-no evidence of soft tissue swelling. There is no erythema or warmth noted. Patient has limited range of motion secondary to pain. He has pain with abduction at the shoulder. He is neurovascular intact distally] Test Results: [Rays of the right shoulder obtained showed a sclerotic focus in the proximal humerus measuring 7 mm believed to be a bone island and a benign process. No other acute processes noted.] Emergency Department Course and Treatment: [Patient was given a sling. Patient given a prescription for [place]ira [place]. Patient given 1 Mira [place] in the department.] Treatment Plan: [Follow-up with orthopedics in 3 to 5 days. Patient given a prescription for [place] for pain] Disposition: [Discharged home in stable condition] Impression: [Right shoulder sprain-possible internal derangement] This note was generated with [employer] dictation software. It may contain incorrect words, spelling, and punctuation that were not noted in review of the chart prior to signing ED Disposition - Plan for ED Patient: Referrals: Jsoe Graham MD [Primary Care Provider] -
--- NOTE | 2019-08-16 20:22 | ED.DEP ---
ED Disposition - Plan for ED Patient: Instructions: ED Shoulder Sprain Prescriptions: Hydrocodone Bitart/Apap 5-325 [[place] 5MG-325MG] 1 tab PO Q4H PRN PRN 2 Days #14 tab PRN Reason: Pain Prescription Printed Referrals: Jose Graham MD [Primary Care Provider] - Jason Pena DO [STAFF PHYSICIAN] - 3-5 Days
[2019-08-16] MEDS: HYDROcodone Bitartrate/Apap 5/325 Tablet PO (20:38)
[2019-08-16 20:53] VITALS: BP 148/91
== END 2019-08-16 20:54 | disposition home or self-care (01) ==
LOC: ED 20:23
PROVIDERS: Emergency Provider Emergency Medicine; PCP Family Medicine
DX: S43.401A Unspecified sprain of right shoulder joint, initial encounter (principal); X50.3XXA Overexertion from repetitive movements, initial encounter; Y93.H9 Activity, other involving exterior property and land maintenance, building and construction; Y92.096 Garden or yard of other non-institutional residence as the place of occurrence of the external cause; Y99.9 Unspecified external cause status; E11.9 Type 2 diabetes mellitus without complications; I10 Essential (primary) hypertension; K21.9 Gastro-esophageal reflux disease without esophagitis; G70.00 Myasthenia gravis without (acute) exacerbation
CPT/HCPCS: 73030; 99283

== ENCOUNTER → 2019-08-26 10:37 | Outpatient (CLI) | payer MEDICARE, MEDICAID, SELFPAY ==
[2019-08-26 10:33] VITALS: BMI 18.8
--- NOTE | 2019-08-26 10:38 | RAD_ITS ---
ACR Level 3 findings have been noted. An addendum which confirms receipt of the report will follow. STUDY: X-RAY - CERVICAL SPINE REASON FOR EXAM: Male, 43 years old. NECK AND RIGHT ARM PAIN TECHNIQUE: 5 view(s) of the cervical spine were obtained. COMPARISON: June 22, 2014 FINDINGS: No acute fracture. No acute dislocation. Cervical straightening. Patient''s head tilted to the right. No significant scoliosis. New endplate spondylosis predominating at C5-6 with endplate irregularities/sclerosis. Minimal grade 1 spondylolisthesis at C5-6. Mild multilevel neural foraminal narrowing, left slightly greater than right. Atlantoaxial articulation intact. Odontoid intact. Lateral masses well aligned. No significant soft tissue swelling. Median sternotomy. CABG. RAD/Cerv Spine 4 or 5 Views IMPRESSION: New endplate spondylosis at C5-6 with endplate irregularity/sclerosis (potential inflammatory/infectious etiology; consider MRI evaluation) Grade 1 spondylolisthesis at C5-6 Cervical straightening Electronically Signed: Ranulfo Rdz DO at 8:20 EDT Tel , Service support ,
== END ==
PROVIDERS: PCP Family Medicine; Referring Provider Orthopaedic Surgery; Visit Provider Orthopaedic Surgery
DX: M79.601 Pain in right arm (principal)
CPT/HCPCS: 72050

== ENCOUNTER → 2019-09-05 | Outpatient (CLI) | payer MEDICARE, MEDICAID, SELFPAY ==
[2019-08-26 10:33] VITALS: BMI 18.8
--- NOTE | 2019-09-05 10:05 | MRI_ITS ---
STUDY: MRI CERVICAL SPINE WITHOUT CONTRAST REASON FOR EXAM: Male, 43 years old. neck pain, rt shoulder pain, rt thumb numbness TECHNIQUE: Standardized fat and water weighted pulse sequences were obtained in the sagittal and axial planes. COMPARISON: X-ray 08/26/2019 FINDINGS: Normal foramen magnum and brainstem-cervical cord junction. Normal craniovertebral junction. Normal anterior atlantoaxial articulation. Normal odontoid process. Normal cervical lordosis. Normal vertebral bodies and posterior osseous elements. C2-3: Normal endplates. Normal disc height, signal and morphology. Normal central canal and intervertebral neural foramina. C3-4: Normal endplates. Normal disc height, signal and morphology. Normal central canal and intervertebral neural foramina. C4-5: Normal endplates. Normal disc height, signal and morphology. Normal central canal and intervertebral neural foramina. C5-6: Moderate broad disc osteophyte complex asymmetric to the right with Modic type I endplate changes produces moderate spinal stenosis with abutment of the right hemicord and mild right neural foraminal stenosis. C6-7: Normal endplates. Normal disc height, signal and morphology. Normal central canal and intervertebral neural foramina. C7-T1: Normal endplates. Normal disc height, signal and morphology. Normal central canal and intervertebral neural foramina. Normal cervical cord. Normal visualized soft tissue structures. MRI/Spine Cervical (Routine) IMPRESSION: Focal degenerative disc disease at C5/C6 disc asymmetric to the right as described above Electronically Signed: Guru Ramos MD at 11:16 EDT Tel , Service support ,
== END | disposition home or self-care (01) ==
LOC: MRI 10:05
PROVIDERS: PCP Family Medicine; Referring Provider Orthopaedic Surgery; Visit Provider Orthopaedic Surgery
DX: M47.812 Spondylosis without myelopathy or radiculopathy, cervical region (principal)
CPT/HCPCS: 72141

== ENCOUNTER 2019-09-17 15:02 | Emergency (ER) | payer MEDICARE, MEDICAID, SELFPAY ==
[2019-09-09 07:48] VITALS: BMI 18.8
[2019-09-17 15:02] VITALS: BP 109/74; PULSE 68; RESP 17; TEMP 36.1; O2SAT 97; BMI 17.6
--- NOTE | 2019-09-17 15:29 | ART_ITS ---
Reason For Study: LLE pain Procedure A bilateral lower extremity continuous wave Doppler with analog waveform analysis and ankle brachial indexes. Left Segmental Pressures Fistula in left upper extremity. Left posterior tibial artery = >255mmHg. Left dorsalis pedis artery = 43mmHg. Left digit = 0 mmHg. Right Segmental Pressures Right brachial= 193mmHg. Right posterior tibial artery = >255mmHg. Right dorsalis pedis artery = 175mmHg. Right digit = 185 mmHg. The right dorsalis pedis waveforms are monophasic. The right posterior tibial artery waveforms are monophasic. Indices The right ankle brachial index by the dorsalis pedis is 0.91. The right digital-brachial index is 0.96. ABIs of RLE are misleading due to monophasic waveforms. The left ankle brachial index by the dorsalis pedis is 0.22. Interpretation Summary Medial calcification of bilateral lower extremity vessels noted making ankle bracial indices inaccurate. The right dorsalis pedis and posterior tibialis doppler waveforms are monophasic consistent with severe disease. Severe multisegmental disease left lower extremity based upon ankle brachial dorsalis pedis index and monophasic waveforms. Ordering Physician: Andrés Jin Referring Physician: Bucky Graham Performed By: Chet Montiel RVT and Student
--- NOTE | 2019-09-17 15:31 | EKG12_ITS ---
Test Reason : Blood Pressure : / mmHG Vent. Rate : 071 BPM Atrial Rate : 071 BPM P-R Int : 144 ms QRS Dur : 092 ms QT Int : 404 ms P-R-T Axes : 065 066 079 degrees QTc Int : 439 ms Normal sinus rhythm Normal ECG Confirmed by TOMY EDWARDS ([id number]), publications editor BART GATES ([id number]) on 09/24/2019 8:10:36 AM Referred By: AMBROCIO Confirmed By:TOMY EDWARDS
--- NOTE | 2019-09-17 15:32 | ED.VIS.GEN ---
History of Present Illness Chief Complaint: Wound Informant: Patient Onset: Weeks - unk; thinks several, at least. Context: Gradual Onset Timing: Continuous Quality: purple wounds left foot/toes Location: left great toe and webspace between toes 3-4 Current Severity: Moderate - pain Maximum Severity: Moderate - pain Worsened by: walking, palpation Relieved by: leaving alone Associated Symptoms: left foot and lower leg feel cold often Narrative: Patient does not know the duration of the symptoms. He states he first noticed the wound a week or 2 ago. He states the last time he knows he saw it without wounds was maybe a month or 2 ago when he last had my nails trimmed. States he sees a director peoplesoft at [facility]. Denies any systemic symptoms. He states he had a telehealth visit today and showed this to someone in addition to the above symptoms and they advised that he seek care immediately. He is on no anticoagulants or antiplatelet medications. He denies any history of heart problems or stroke. States his myasthenia gravis has been making his legs feel weaker than usual lately, however he uses a walker and still has been getting around without any significant difficulty. He denies any recent injury that he knows of, but admits that he has peripheral neuropathy in his feet and they are usually numb. - Past Medical History (1) Gastroparesis due to DM Status: Chronic (2) Chronic renal failure, stage 4 (severe) Status: Chronic (3) Diabetes type I Status: Chronic (4) HTN (hypertension) Status: Chronic (5) IBS (irritable bowel syndrome) Status: Chronic (6) Myasthenia gravis Status: Chronic (7) Diabetic peripheral neuropathy Status: Chronic Past Medical History - Allergies and Home Meds Allergies/Adverse Reactions: Allergies levofloxacin [From Levaquin] Allergy (Verified 09/17/19 15:02) Pain in joints lisinopril Allergy (Verified 09/17/19 15:02) Angioedema losartan Allergy (Verified 09/17/19 15:02) Angioedema metoclopramide HCl [From Reglan] Allergy (Verified 09/17/19 15:02) Hives Primary Care Physician: Jose Graham MD [Primary Care Provider] - Surgical History: - - Thymectomy, cholecystectomy, teeth resection. Lives: Alone Smoking Status: Current every day smoker - Family History Maternal Family History: Family History (Last Reviewed 08/01/19 @ 12:44 by Dee Mukherjee) Father Cancer Hypertension Mother Thyroid disorder Family History: Reports: - Paternal Family History: Family History (Last Reviewed 08/01/19 @ 12:44 by Dee Mukherjee) Father Cancer Hypertension Mother Thyroid disorder Family History: Reports: Cancer, Hypertension, - Review of Systems General: Denies: Chills, Fever, Sweats Eyes: Denies: Visual changes - bilaterally, Diplopia ENT: Denies: Rhinorrhea, Sore throat Cardiovascular: Denies: Chest pain, Palpitations Respiratory: Denies: Dyspnea, Cough, Dyspnea on exertion Gastrointestinal: Denies: Abdominal pain, Nausea, Vomiting, Diarrhea, Melena, Hematochezia Genitourinary: Denies: Dysuria, Hematuria, Frequency Musculoskeletal: Reports: Extremity Pain - and feeling cold, LLE. Denies: Neck pain, Back pain, Swelling Skin: Reports: Wounds. Denies: Rash Neurological: Reports: Numbness - feet. Denies: Headache, Weakness Physical Exam Vital Signs/Narrative: Vital Signs Temp Pulse Resp BP Pulse Ox 09/17/19 15:02 97.0 F L 68 17 109/74 97 Inital Vital Signs reviewed: Yes General: Well nourished, Well developed, No Acute Distress Head: Normocephalic, Atraumatic Eyes: Perrl, EOMI ENT: Moist mucous membranes, No rhinorrhea Neck: Supple, Nontender Cardiovascular: Regular rate, Regular rhythm, No murmurs Respiratory: No distress, CTA bilaterally, Chest nontender Abdomen: Soft, Nontender, Nondistended, Normal bowel sounds Back: Nontender, Normal Inspection Extremities: No edema, Tenderness - all left toes, - - Delayed cap refill over 6 seconds left foot. No palpable DP pulse bilaterally. Right foot is warm. Left lower extremity is warm from the midfoot proximal, but the distal foot is cool. Skin: No rash, Pallor - distal LLE, cool compared w/ RLE, - - 2 small areas of wounds on the left foot, one is just distal to the nail at the tip of the great toe, the other is in the webspace between toes 3 and 4, they appear almost purpuric. There is no discharge or abscess. No more tender than surrounding areas. No erythema or signs of infection. No bullae, vesicles, petechia. Neurological: Alert, Oriented x3, Cranial nerves II-XII grossly intact, Normal Strength, Normal Sensation Psychological: Normal affect, Normal Mood Diagnostic/Tx/Re-eval Impressions Foot X-Ray 09/17/19 15:52 IMPRESSION: Normal x-ray examination of the foot. Electronically Signed: Guru Ramos MD at 16:13 EDT Tel , Service support , 09/17/19 15:52 Foot min 3 Views [RAD] Stat Laboratory Results 09/17/19 09/17/19 09/17/19 15:50 15:50 15:50 WBC 9.3 RBC 4.23 L Hgb 12.1 L Hct 37.5 L MCV 88.7 MCH 28.6 MCHC 32.3 RDW Std Deviation 50.0 H RDW Coeff of Fidel 15.7 H Plt Count 247 MPV 12.4 H Immature Gran % (Auto) 0.800 Neut % (Auto) 71.6 H Lymph % (Auto) 13.6 L [place] % (Auto) 10.4 H Eos % (Auto) 2.7 Baso % (Auto) 0.9 Absolute Neuts (auto) 6.6 Absolute Lymphs (auto) 1.26 Nucleated RBC % 0 APTT 33.3 Sodium 139 Potassium 3.9 Chloride 111 H Carbon Dioxide 18.0 L Anion Gap 10 BUN 73 H Creatinine 5.22 H Estim Creat Clear Calc 12.86 Est GFR (MDRD) Af Amer 15 L Est GFR (MDRD) Non-Af 13 L BUN/Creatinine Ratio 14.0 Glucose 104 Calcium 7.9 L - Rhythm Strip Rhythm Strip: Sinus Rhythm Rate: 71 Ectopy: None - EKG Initial EKG Interpretation: Sinus Rhythm, No Acute Injury Pattern - Medical Decision Making Patient is having more foot pain, I believe his pain and wounds are due to ischemia. From discussing with the patient, it sounds like this has been going on for over a week at least. I was able to get ankle-brachial indices, and at the left DP, the measurement is 0.22 whereas it is 0.91 on the right. The arterial duplex ultrasound was obtained but not able to be read emergently. In reviewing the images, it appears that in the digits of the left foot he has very little blood flow, there is no good waveform whereas it is excellent on the right. There is no one available injection moulding machine operator for vascular at this time. That is a limited resource at this hospital, and I am unable to establish close outpatient follow-up for this patient nor establish what he needs and does not need urgently for this issue that is subacute, and therefore I think he needs a higher level of care for further evaluation. He takes no antiplatelet or anticoagulant medications. I am starting him on heparin, treating his pain, and he states all of his doctors are within the [facility] system, so he prefers to be transferred there. Furthermore, his renal function is worsening. He states he sees Dr. Vang with [facility] for that, and is scheduled for another appointment 1 week from today. He knows that it has been worsening. Was able to get him accepted at [facility] by Dr. Schaeffer. - Critical Care Time Critical care time (excluding procedures): 30-74 minutes - 35 min, Including time spent:, Discussing w/Patient &/or Family/Business Solutions Analyst, Discussing w/Consultants, Arranging Admission or Transfer, Performing Direct Patient Care at Bedside ED Disposition - Plan for ED Patient: Disposition: [facility] Diagnosis: Ischemia of left lower extremity, Acute on chronic renal failure, Myasthenia gravis, Diabetic peripheral neuropathy, Diabetes type I Referrals: Jose Graham MD [Primary Care Provider] -
[2019-09-17] MEDS: HYDROcodone Bitartrate/Apap 5/325 Tablet PO (15:40)
--- NOTE | 2019-09-17 15:52 | RAD_ITS ---
STUDY: X-RAY - LEFT FOOT CLINICAL: Male, 43 years old. SORES BETWEEN 4TH AND 5TH DIGITS AND DISTAL 1ST DIGIT TECHNIQUE: 3 view(s) of the foot. COMPARISON: None. FINDINGS: Normal talus, calcaneus, and tarsal bones. Normal visualized subtalar, talonavicular, calcaneocuboid, tarsal and tarsometatarsal articulations. Normal metatarsi. Normal metatarsophalangeal joint of the great toe. Normal tibial and fibular sesamoid bones. Normal interphalangeal joint of the great toe. Normal phalanges of the great toe. Normal second through fifth metatarsophalangeal joints. Normal interphalangeal joints and phalanges of the lesser toes. The soft tissue structures are unremarkable. RAD/Foot min 3 Views IMPRESSION: Normal x-ray examination of the foot. Electronically Signed: Guru Ramos MD at 16:13 EDT Tel , Service support ,
[2019-09-17 15:57] LABS: Absolute Lymphocyte Count 1.26 X10^3/uL (0.83-4.51); Absolute Neutrophil Count 6.6 X10^3/uL (2.0-7.7); Basophil# 0.08 X10^3/uL; Basophil% 0.9 % (0-1); Eosinophil# 0.25 X10^3/uL; Eosinophils% 2.7 % (0-5); Hematocrit 37.5 % (40-54); Hemoglobin 12.1 g/dL (13.0-16.5); Lymphocyte # 1.26 X10^3/ul (4.0); Lymphocyte % 13.6 % (19-41); Mean Corp Hgb Conc 32.3 g/dL (32-36); Mean Corpuscular Hgb 28.6 pg (27.0-32.0); Mean Corpuscular Volume 88.7 fL (80-94); Mean Platelet Vol. 12.4 fl (6.2-12.0); Monocyte# 0.96 X10^3/uL; Monocyte% 10.4 % (0-10); NRBC Flagged by Analyzer 0 % (0-5); Neutrophil # 6.64 X10^3/uL (2.7-7.7); Neutrophil % 71.6 % (47-70); Platelet Count 247 K/mm3 (150-450); RBC Distribution Width CV 15.7 % (11.6-14.6); Red Blood Count 4.23 M/mm3 (4.6-6.2); White Blood Count 9.3 K/mm3 (4.4-11.0)
[2019-09-17 16:10] LABS: Anion Gap 10 (5-15); BUN 73 mg/dL (7-18); Calcium,Total 7.9 mg/dL (8.5-10.1); Chloride 111 mmol/L (98-107); Creatinine, Serum 5.22 mg/dL (0.70-1.30); EST Glomerular Filtration Rate 13 mL/min (>60); Est Glom Filt Rate - Afr Amer 15 mL/min (>60); Estimated Creatinine Clearance 12.86 ml/min; Glucose 104 mg/dL (74-106); Potassium 3.9 mmol/L (3.5-5.1); Sodium Level 139 mmol/L (136-145)
[2019-09-17 16:20] LABS: Partial Thromboplast Time 33.3 Seconds (24.1-36.2)
[2019-09-17 17:42] VITALS: BP 178/110; PULSE 70; RESP 18; TEMP 36.5; O2SAT 100
[2019-09-17] MEDS: Morphine 4 MG/ML Syringe IV ×2 (18:01→20:48)
--- NOTE | 2019-09-17 18:03 | NURSING ---
CALLED [facility] FOR TRANSFER. TALKING TO THEM
[2019-09-17] MEDS: Heparin Injection (Vial) 5,000 UNIT/ML VIAL 4000 UNIT IV (18:37)
[2019-09-17] MEDS: HEPARIN/D5w 25,000 UNITS 25,000 UNITS/250 ML IV.SOLN. 8 UNITS IV (18:40)
[2019-09-17 19:27] VITALS: BP 172/102; PULSE 72; RESP 16; TEMP 36.6; O2SAT 100
--- NOTE | 2019-09-17 19:57 | ED.RN ---
attempted to call report to [facility]- but RN will call back.
== END 2019-09-17 21:30 | disposition short-term general hospital (02) ==
PROVIDERS: Emergency Provider Emergency Medicine; PCP Family Medicine
DX: I99.8 Other disorder of circulatory system (principal); M79.605 Pain in left leg; I12.9 Hypertensive chronic kidney disease with stage 1 through stage 4 chronic kidney disease, or unspecified chronic kidney disease; N18.4 Chronic kidney disease, stage 4 (severe); N17.9 Acute kidney failure, unspecified; G70.00 Myasthenia gravis without (acute) exacerbation; Z79.4 Long term (current) use of insulin; E10.42 Type 1 diabetes mellitus with diabetic polyneuropathy; F17.200 Nicotine dependence, unspecified, uncomplicated; K58.9 Irritable bowel syndrome, unspecified; E10.43 Type 1 diabetes mellitus with diabetic autonomic (poly)neuropathy; K31.84 Gastroparesis; Z82.49 Family history of ischemic heart disease and other diseases of the circulatory system; Z88.1 Allergy status to other antibiotic agents; Z88.8 Allergy status to other drugs, medicaments and biological substances; Z90.49 Acquired absence of other specified parts of digestive tract; I73.9 Peripheral vascular disease, unspecified
CPT/HCPCS: 73630; 80048; 85025; 85730; 93005; 93922; 96374; 96376; 99285; A4216

== ENCOUNTER 2019-10-17 09:00 | Outpatient (RCR) | payer MEDICARE, MEDICAID, SELFPAY ==
[2019-09-09 07:48] VITALS: BMI 18.8
--- NOTE | 2019-09-12 09:50 | HP.PTEVAL_ITS ---
Patient's Visit Information MAARILYS KAISER Jr. is a 43 year old M referred to Physical Therapy by Dr. Jason Pena DO with a diagnosis of Cervical DDD and Right RTC. Date of Evaluation: 09/12/19 Physical Therapist: Giovanna Arias DPT - Visit Plan Frequency: 3x /Week Duration: 3 Weeks Plan: Gait Belt- Fall Risk. Focus on scapular s/s and cervical spine. Modality of US and E-stim- Trial manual traction prior to mechanical. Manual - Subjective Patient reports that he is here for his neck and right shoulder. He has DDD C5-C6- pain is located on the right side from his neck down to the tip of the shoulder. He was using a new riding mower with a wheel- and then woke up the next day- and he could not use his right arm. He is right hand dominate. His mom is currently staying with hiim to help out. He went to the ER and they took x-rays which were negative. Right hand dominate. Pain level worst 10/10 Best: 6/10. Agg: everything, movement Eases: heat and keeping it close to him. Was referred to Dr. Swanson for injections in his neck in 2 weeks. Pain radiates to the elbow and the right thumb is numb and tingling. The N/T is always there. No PEREZ, blurred vision, dizziness. Sleep: disturbed- wakes him up and is hard to get comfortable- use to be a belly sleeper so he is now sleeping on his side. Feels like he has lost coat operator insulator strength on the right Ex- hard to grab a glass of water. Has been falling more- he has significant weakness in his legs- left is worse- he has been seeing a neurologist- and is waiting on a return call from his office. They are aware of the problems. This has been going on for a few years he has Myasthenia Gravis. Uses a cane but does have a rollerator and plans to start using it as he fell at PT today. PMHx/Meds: see chart- Fall Risk - Objective Posture: poor- significant guarding of the cervical spine and right shoulder. Gait: severely antalgic and poor balance- decreased foot clearance on the left LE. Palpation: tender throughout cervical spine and right scapula, anterior shoulder and to the elbow- pt has trigger points throughout and is tender to light touch. Sensation: WNL. ROM: cervical: flexion: diminished by 50% extn: diminished by 75%, SB: diminished by 50% Rot: diminished by 50% with pain in all planes, Shoulder: Flexion: 90 degrees, Abd: WNL with pain, IR: equal with pain, ER: 60 degrees, Extn: WNl. Elbow:WNL, Wrist: WNL with pain, Shipping And Receiving Assistant: full. Strength:Shipping And Receiving Assistant Strength: Right: 10 lbs Left: 20 lbs, Elbow: 4-/5 with pain, Shoulder: 3+/5 with pain, Scap: poor. Special Test: Empty Can:positive, Belly Lift: positive, Impingment: positive Dural Signs: positive on right. Spurlings: positive. Very painful today hard to assess - Goals Goal 1:: Patient will be I with HEP and progression Goal Time Frame: 4-6 Weeks Goal 2:: Patient will demo full AROM of the shoulder and cervical spine without pain Goal Time Frame: 4-6 Weeks Goal 3:: Patient will report 0/10 pain with all normalized Goal Time Frame: 4-6 Weeks Goal 4:: Patient will maintain proper posture t/o tx session to demo increased scap s/s Goal Time Frame: 4-6 Weeks Goal 5:: Patient will have equal coat operator insulator strength Goal Time Frame: 4-6 Weeks - Rehabilitation Potential Physical Therapy Diagnosis: Patient presents with hypmobility- he has decreased ROM, strength and muscular endurance leading to poor posture and increased pain with ADL's. Rehabilitation Potential: Fair - Anticipated Interventions Patient/Client Instruction: Educate patient on: Benefits of Fitness Program Therapeutic Exercise to Include: Strength training, Endurance training, Balance training, Coordination, Agility training, Body mechanics, Postural training, Flexibilty training, Neuromotor development, Dynamic Lumbar Stabilization, Scapular Strength/Stabilization For the Purpose of:: To improve muscle performance and motor function TENS: Yes Cryotherapy (ice pack, ice massage): Yes Thermo therapy (hot pack): Yes Ultrasound (thermal/non thermal): Yes For the Purpose of:: To decrease pain Thank you for the opportunity to evaluate your patient. For Medicare and Medicare HMO plans, please review the plan of care and approve it. It will need to be FAXED BACK to us at [phone] for Medicare purposes. For Medicare only, by signing this I certify the plan of care. Please let me know if there are questions or concerns regarding this plan of care. Physician Signature: Date:
--- NOTE | 2019-10-10 09:23 | HP.PTREVAL ---
Dr. Jason Pena, DO, It has been my pleasure to treat AMARILYS KAISER Jr. over the last 2 visits for Cervical DDD and Right RTC. Please see the progress note below for an update on the physical therapy plan of care! Subjective: Since he has been here he found out he had a blood clot in his left leg- ended up with gangrene and had to have his 4th toe and his big toe nail removed. And put him in the boot- he will continue to wear it until the sutures come out- [facility]. Has been using the walker since then and has been in a boot. His mom has been out helping him at home. He had a fall at the hospital- no falls since he has been home. Went home September 24. He is also doing dyalysis 3 days a week now and is much- which has made him feel better. His right shoulder is still really bothering him and he has DDD in his cervical spine. He feels his neck/shoulder is about the same- weak and then when he reaches for things he has a lot of pain. Pains is located from the end of the deltoid up into the subocciptals on the right side- down the medial border of the scapula and into the bicipital groove. Worst: 10/10 Agg: reaching and certain positions Eases: heat and massage. Best: 0/10 when he is sleeping. Sleep: couple of times it has woken him up- side sleeper and belly. Today pain level is about a 6/10- in the deltoid. His left thumb is numb which is pretty constant. Objective/Function: Posture: poor- significant guarding of the cervical spine and right shoulder. Gait: rollerator and boot on left LE- no fear of falling today- no LOB Palpation: tender throughout cervical spine and right scapula, anterior shoulder and to the elbow Sensation: WNL. ROM: cervical: flexion: diminished by 50% extn: diminished by 75%, SB: diminished by 50% Rot: diminished by 50% with pain in all planes, Shoulder: Flexion: 90 degrees, Abd: WNL with pain, IR: equal with pain, ER: 60 degrees, Extn: WNl. Elbow:WNL, Wrist: WNL with pain, Windows Laptop Technician: full. Strength:Windows Laptop Technician Strength: Right: 10 lbs Left: 20 lbs, Elbow: 4-/5 with pain, Shoulder: 3+/5 with pain, Scap: poor. Special Test: Empty Can:positive, Belly Lift: positive, Impingment: positive Dural Signs: positive on right. Spurlings: positive. Plan Plan: Continue 2x 4 weeks-Focus on scapular s/s and cervical spine. Modality of US and E-stim- Trial manual traction prior to mechanical. Manual Goals Goal 1:: Patient will be I with HEP and progression Goal Time Frame: 4-6 Weeks Goal 2:: Patient will demo full AROM of the shoulder and cervical spine without pain Goal Time Frame: 4-6 Weeks Goal 3:: Patient will report 0/10 pain with all normalized Goal Time Frame: 4-6 Weeks Goal 4:: Patient will maintain proper posture t/o tx session to demo increased scap s/s Goal Time Frame: 4-6 Weeks Goal 5:: Patient will have equal asset management lead strength Goal Time Frame: 4-6 Weeks Anticipated Interventions Patient/Client Instruction: Educate patient on: Benefits of Fitness Program Therapeutic Exercise to Include: Strength training, Endurance training, Balance training, Coordination, Agility training, Body mechanics, Postural training, Flexibilty training, Neuromotor development, Dynamic Lumbar Stabilization, Scapular Strength/Stabilization For the Purpose of:: To improve muscle performance and motor function TENS: Yes Cryotherapy (ice pack, ice massage): Yes Thermo therapy (hot pack): Yes Ultrasound (thermal/non thermal): Yes For the Purpose of:: To decrease pain Please do not hesitate to contact me at [phone] by phone or if you have questions or concerns regarding this new plan of care! Sincerely, Giovanna Airas DPT
--- NOTE | 2019-12-23 16:26 | HP.PT.NRP ---
AMARILYS Víctor K[facility]IS[facility] Jr. was seen in my office for initial evaluation on 09/12/19. The following Plan of Care was established for this patient: Initial Frequency: 3x /Week Initial Duration: 3 Weeks Patient/Client Instruction: Educate patient on: Benefits of Fitness Program Therapeutic Exercise to Include: Strength training, Endurance training, Balance training, Coordination, Agility training, Body mechanics, Postural training, Flexibilty training, Neuromotor development, Dynamic Lumbar Stabilization, Scapular Strength/Stabilization For the Purpose of:: To improve muscle performance and motor function TENS: Yes Cryotherapy (ice pack, ice massage): Yes Thermo therapy (hot pack): Yes Ultrasound (thermal/non thermal): Yes For the Purpose of:: To decrease pain This patient was last seen in our office . Pertinent comments regarding their Physical therapy will appear below: Patient has not returned to PT in over 6 weeks- appropriate for d/c and return to MD for further evaluation as needed. At this point I will be discontinuing this patient from physical therapy. I would be happy to see this patient again in the future if found appropriate by the physician. Thank you! JENN LeosT
== END 2019-10-17 19:00 | disposition home or self-care (01) ==
LOC: PT 09:00
PROVIDERS: PCP Family Medicine; Referring Provider Orthopaedic Surgery; Visit Provider Orthopaedic Surgery
DX: M60.819 Other myositis, unspecified shoulder (principal); M50.10 Cervical disc disorder with radiculopathy, unspecified cervical region
CPT/HCPCS: 97014; 97035; 97110; 97162; 97164; G0283

== ENCOUNTER 2019-10-22 13:34 | Inpatient (IN) | payer MEDICARE, MEDICAID, SELFPAY ==
[2019-10-22 13:20] VITALS: BMI 21.5
[2019-10-22 13:22] VITALS: BP 180/92; PULSE 82; RESP 16; TEMP 37; O2SAT 97
--- NOTE | 2019-10-22 13:42 | PCM.HP.STD ---
Problem List (1) Foot ulcer, left Status: Acute (2) Left leg and foot cellulitis Status: Acute (3) Diabetic peripheral neuropathy Status: Chronic (4) Chronic renal failure, stage 4 (severe) Status: Chronic (5) Gastroparesis due to DM Status: Chronic (6) Cellulitis of right leg Status: Inactive (7) IBS (irritable bowel syndrome) Status: Chronic Qualifiers: Irritable bowel syndrome type: unspecified Qualified Code(s): K58.9 - Irritable bowel syndrome without diarrhea (8) HTN (hypertension) Status: Chronic Qualifiers: Hypertension type: essential hypertension Qualified Code(s): I10 - Essential (primary) hypertension (9) Diabetes type I Status: Chronic Qualifiers: Diabetes mellitus complication status: with unspecified complications (10) Myasthenia gravis Status: Chronic History of Present Illness Date of Admission: 10/22/19 Chief Complaint: Left foot ulcer and surrounding cellulitis, admitted from podiatry office The patient is a 43 year old M with multiple comorbidities including type 1 diabetes mellitus and myasthenia gravis admitted directly from director biology office on the floor for left foot ulcer tonsillitis. As per his director biology, Dr. Hdz patient left foot is red, swollen and 3 small openings/sinuses on left heel. He also had left toenail removed as per patient. Left lower leg and foot is covered with dressing. Left foot ulcer is present about 1 week to 2 weeks prior to ER visit on 09/16, patient does not know exact duration. On the ER visit, patient was transferred to [facility] for concern of left acute ischemic leg where he had angiogram and stent inserted. Patient denies any fever or chills. He was tested COVID-19 PCR negative about 3 weeks ago prior to angiogram and a stent of left leg. Denies cough, shortness of breath or other acute symptoms. Has chronic diarrhea for more than a year probably secondary to IBS. Patient also recently quit smoking about a month ago. History of smoking since age of 15 about a pack per day. [] Past Medical History Past Medical History (Chronic Problems): Chronic Problems (Last Reviewed 08/01/19 @ 12:44 by Dee Mukherjee) Diabetic peripheral neuropathy (Chronic) Chronic renal failure, stage 4 (severe) (Chronic) Gastroparesis due to DM (Chronic) IBS (irritable bowel syndrome) (Chronic) HTN (hypertension) (Chronic) Diabetes type I (Chronic) Myasthenia gravis (Chronic) Medical History: Medical History (Last Reviewed 08/01/19 @ 12:44 by Dee Mukherjee) Chronic renal failure, stage 4 (severe) (Chronic) N18.4 Gastroparesis due to DM (Chronic) E11.43, K31.84 Cellulitis of right leg (Acute) L03.115 IBS (irritable bowel syndrome) (Chronic) HTN (hypertension) (Chronic) I10 Diabetes type I (Chronic) Myasthenia gravis (Chronic) G70.00 Allergies levofloxacin [From Levaquin] Allergy (Verified 09/17/19 15:02) Pain in joints lisinopril Allergy (Verified 09/17/19 15:02) Angioedema losartan Allergy (Verified 09/17/19 15:02) Angioedema metoclopramide HCl [From Reglan] Allergy (Verified 09/17/19 15:02) Hives Home Medications: Ambulatory Orders Medication Instructions Recorded Albuterol Inhaler [Ventolin Hfa] 2 puff INHALATION Q4H PRN PRN 08/19/14 Budesonide/Formoterol 160/4.5 2 puff INHALATION BID 02/23/16 [Symbicort 160/4.5 Mcg Inhaler (SP)] Pyridostigmine [place] [Mestinon] 60 mg PO TID PRN PRN 12/03/16 Amlodipine [Norvasc] 10 mg PO DAILY 08/30/18 Levothyroxine [Synthroid] 50 mcg PO DAILY 08/30/18 Phenergan tablet 25 mg PO PRN PRN 08/30/18 amitriptyline 10 mg tablet 10 mg PO DAILY 03/12/19 furosemide 20 mg tablet 80 mg PO BID tab 03/12/19 metoprolol tartrate 50 mg tablet 100 mg PO BID tab 03/12/19 omeprazole 10 mg capsule,delayed 40 mg PO DAILY cap 03/12/19 release Insulin Pump/Infus. Set/Meter 0 03/22/19 Montelukast Sodium [Singulair] 10 mg PO DAILY 03/22/19 Ondansetron [Zofran Odt] 4 mg PO Q12H PRN PRN 03/22/19 Pregabalin [Lyrica] 75 mg PO BID 03/22/19 Aspirin 81 mg PO DAILY 10/22/19 Calcium Acetate [Phoslo Gel Cap] 667 mg PO TIDCM 10/22/19 Clopidogrel Bisulfate [Clopidogrel] 75 mg PO DAILY 10/22/19 Surgical History: Surgical History (Last Reviewed 08/01/19 @ 12:44 by Dee Mukherjee) S/P thymectomy Z90.89 Status post creation of arteriovenous fistula Onset Date: ~04/2019 Z98.890 Status post laparoscopic cholecystectomy Z90.49 Surgical History: - - Thymectomy, cholecystectomy, teeth resection. Psychiatric History: No pertinent psych hx Smoking Status: Current every day smoker - *Family History Maternal Family History: Family History (Last Reviewed 08/01/19 @ 12:44 by Dee Mukherjee) Father Cancer Hypertension Mother Thyroid disorder History Items: - Paternal Family History: Family History (Last Reviewed 08/01/19 @ 12:44 by Dee Mukherjee) Father Cancer Hypertension Mother Thyroid disorder History Items: Cancer, Hypertension, - Review of Systems Constitutional: Denies: Chills, Fever, Weight Change HEENT: Denies: Head Aches, Sinus Congestion, Sinus Drainage Cardiovascular: Denies: Chest Pain, Palpitations Respiratory: Denies: Cough, Shortness of breath at rest, Sputum production Gastrointestinal: Denies: Abdominal Pain, Nausea, Vomiting Genitourinary: Denies: Dysuria Musculoskeletal: Reports: Foot Pain, Joint Pain, Joint swelling. Denies: Joint Tenderness Skin: Denies: Rash, Wounds Neurological: Reports: Balance problems, - - Lower extremity muscle weakness secondary to myasthenia gravis. Denies: Focal weakness, Numbness, Tingling Psychiatric: Reports: Anxiety. Denies: Depression, Homicidal Ideations, Suicidal Ideations Hematologic/ Lymphatic: Denies: Easy Bruising, Easy Bleeding VTE Information - Inpt Only VTE Present on Admission: No VTE Mechan Device Prophylaxis: None VTE Pharm Prophylaxis ordered?: Yes Patient Problems: Active and Suspected Problems (Last Reviewed 08/01/19 @ 12:44 by Dee Mukherjee) Foot ulcer, left (Acute) Left leg and foot cellulitis (Acute) - Physical Exam Vitals/I&O's: Body Mass Index (BMI) 17.6 Finger Stick Blood Glucose 406 General: Alert, Oriented x3, Cooperative HEENT: Atraumatic, PERRLA, EOMI, Normocephalic Oral: No Gingival or Mucosal Lesions/ Ulcerations, Dry Mucosa Neck: Supple, No JVD, Negative Carotid Bruits Lungs: Clear to auscultation, No rhonchi, No wheeze, No rales, Diminished - Air entry diminished bilaterally lung bases Cardiovascular: Regular rate, Regular Rhythm, Normal S1, Normal S2, Murmur - Pansystolic murmur present over left lower sternal border Abdomen: Bowel Sounds Present, Soft, Non Tender Extremities: No edema, Capillary Refill Less than 3 Seconds Skin: Ulcer/ Wound - Ulcer in the heel. Left great toenail removed. Surrounding cellulitis of left foot and distal one third of left leg Musculoskeletal: Arthritic Changes, Muscle Wasting, Tenderness - Mild tenderness of left foot Neurological: Cranial nerves II-XII grossly intact Psych/Mental Status: Normal Affect, Appropriate Current Medications Sodium Chloride () 250 mls @ 15 mls/hr IV .[id number] PRN PRN Reason: Saline Flush Sodium Chloride () 10 - 40 ml IV UD PRN PRN Reason: SALINE FLUSH Assessment/Plan All Active Problems (Last Reviewed 08/01/19 @ 12:44 by Dee Mukherjee) Foot ulcer, left (Acute) Left leg and foot cellulitis (Acute) The patient is a 43 year old M with multiple comorbidities including type 1 diabetes mellitus and myasthenia gravis admitted directly from director biology office on the floor for left foot ulcer and contiguous cellulitis. [] 1. Left diabetic foot ulcer with surrounding cellulitis: Patient is admitted directly to [facility] floor. MRI of left foot ordered. Podiatry consult. Blood cultures x2, wound MRSA and culture and MRSA nasal screen. Basic labs labs including CRP, magnesium, phosphorus ordered. Started on broad-spectrum IV Zosyn. During previous admission on right leg cellulitis and ulcer, patient had MSSA cellulitis. Podiatry Dr. Hdz consult 2. Type 1 diabetes mellitus, complicated with gastroparesis ESRD, diabetic nephropathy on hemodialysis, neuropathy and peripheral arterial disease: Consult lsat instructor Dr. Vang. He is on dialysis Monday and Monday. Patient has insulin pump and monitor on the subcutaneous but has not brought refill. Accu-Chek before meals and at bedtime and cover with Humalog sliding scale. Need basal insulin. Glucose 104 on BMP. A1c tomorrow a.m. Patient had endoscopy pyloroplasty. Echo tomorrow a.m. as patient is on beta-mariama, history of peripheral arterial disease and has heart murmur. 3. Peripheral arterial disease with left leg stent: Patient had OBDULIO done in podiatry office. On 09/16 ER visit, patient had OBDULIO which showed medial calcification of bilateral lower extremity vessels making OBDULIO inaccurate. Right DPA and BUILDING DRAFTING [employer] waveforms are monophasic consistent with severe disease. 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 4. Possible COPD: Patient is on Symbicort inhaler at home. He does not know whether he had PFT. 6. Hypertension, irritable bowel syndrome and myasthenia gravis: Home medication reconciliation done. Patient is on Phenergan DVT prophylaxis: Heparin 5000 subcutaneous 3 times daily Inpatient E&M: [id number] Init Hosp L3
--- NOTE | 2019-10-22 14:23 | MRI_ITS ---
STUDY: MRI LEFT MIDFOOT REASON FOR EXAM: Male, 43 years old. LEFT foot/heel ulcer. Pt has 4th toe removed 3 weeks ago (continued drainage of this area), wound of great toe and heel. Hx of diabetes, CKD, htn, etc... TECHNIQUE: Standardized fat and water weighted pulse sequences were obtained in all 3 orthogonal planes. COMPARISON: Radiographs performed 09/17/2019. FINDINGS: There is diffuse cellulitis with decreased T1 and increased T2 signal within the soft tissues. There is prior amputation at the fourth metatarsal phalangeal joint. There is decreased T1 and increased T2 signal within the distal fourth metatarsal. There is also mild decreased T1 and increased T2 signal distal aspect fifth metatarsal and within the distal aspect of the third metatarsal. There is mild heterogeneous marrow signal within the calcaneus and talus. There is no intrinsic or extrinsic tendon or ligamentous disruption. There are no visualized fractures. There is significant focal fluid surrounding the fourth metatarsal. There is a small ankle joint effusion MRI/Lower Ext/No Jt/w/o IMPRESSION: Cellulitis of soft tissues Previous amputation at the fourth metatarsophalangeal joint Edema, likely osteomyelitis distal fourth metatarsal, significant fluid surrounding the first metatarsal, likely postsurgical, and suspicious for abscess Findings suspicious for osteomyelitis distal aspect of the third and fifth metatarsals Small ankle joint effusion which could be reactive versus synovitis but cannot exclude septic arthritis Mild heterogeneous signal within the calcaneus and talus which could represent reactive marrow edema, versus early osteomyelitis Electronically Signed: Chao Galicia, at 17:31 EDT Tel , Service support ,
--- NOTE | 2019-10-22 14:25 | ECHOD_ITS ---
Reason For Study: Aortic Systolic Murmur Procedure This was a 2D Doppler, Color Flow transthoracic echocardiogram. Apical images done with patient supine. Exam performed portable in patient room. Left Ventricle Moderate concentric left ventricular hypertrophy. Mildly dilated left ventricle. The estimated ejection fraction is 50-55 %. Normal diastology for age. No regional wall motion abnormalities noted. Right Ventricle Normal size and thickness. Normal systolic function. Atria Normal left atrium. Normal right atrium. Normal atrial septum. Mitral Valve The mitral valve is structurally normal. No prolapse or stenosis seen. Trivial mitral valve insufficiency. Tricuspid Valve Normal tricuspid valve. Trivial tricuspid valve insufficiency. Right ventricular systolic pressure estimated to be 34 mmHg. Aortic Valve Normal aortic valve. Trisinus/trileaflet aortic valve. Pulmonic Valve Normal pulmonic valve. Great Vessels Normal aortic root. Normal arch. Normal inferior vena cava. Inferior vena cava collapse with sniff. Pericardium/Pleural No pericardial effusion. Moderate size left pleural effusion. MMode/2D Measurements & Calculations LVIDd: 4.9 cm IVSd: 1.5 cm LA dimension: 3.4 cm LVIDs: 3.6 cm LVPWd: 1.3 cm RVDd: 3.5 cm FS: 26.8 % LAV(MOD-sp4): 52.7 ml LA A4 area: 19.5 cm2 RA A4 area: 14.3 cm2 Doppler Measurements & Calculations MV E max kelton: 87.8 cm/sec Lat Peak E' Kelton: 10.6 cm/sec Med Peak E' Kelton: 7.8 cm/sec MV A max kelton: 78.9 cm/sec E/E' lat: 8.2 E/E' med: 11.2 MV E/A: 1.1 MV V2 max: 95.0 cm/sec MV P1/2t max kelton: 91.9 cm/sec Ao V2 max: 136.6 cm/sec MV max P.6 mmHg MV P1/2t: 65.9 msec Ao max P.5 mmHg MV V2 mean: 56.7 cm/sec Ao V2 mean: 89.2 cm/sec MV mean P.5 mmHg MV dec slope: 408.7 cm/sec2 Ao mean P.6 mmHg MV V2 VTI: 24.0 cm MVA(P1/2t): 3.3 cm2 Ao V2 VTI: 28.8 cm LV V1 max: 100.6 cm/sec PA V2 max: 77.0 cm/sec TR max kelton: 271.0 cm/sec LV V1 max P.0 mmHg TR max P.4 mmHg LV V1 mean P.1 mmHg LV V1 mean: 67.2 cm/sec LV V1 VTI: 22.9 cm Interpretation Summary Moderate concentric left ventricular hypertrophy. Mildly dilated left ventricle. The estimated ejection fraction is 50-55 %. Normal diastology for age. Trivial mitral valve insufficiency. Trivial tricuspid valve insufficiency. Right ventricular systolic pressure estimated to be 34 mmHg. Moderate size left pleural effusion with fibrinous material noted in pleuarl space. There is no comparison study available. Ordering Physician: Inocencio Espinoza Referring Physician: Inocencio Espinoza Performed By: Juan Gonzales RCS
[2019-10-22] MEDS: 0.9% Saline Lock 10 ML Syringe IV ×2 (14:36→18:11)
[2019-10-22] MEDS: proMETHazine 25 MG/ML Syringe 12.5 MG IV (14:57)
[2019-10-22] MEDS: Morphine 2 MG/ML Syringe IV ×3 (15:01→21:18)
[2019-10-22 15:17] LABS: Absolute Lymphocyte Count 0.95 X10^3/uL (0.83-4.51); Absolute Neutrophil Count 18.1 X10^3/uL (2.0-7.7); Basophil# 0.05 X10^3/uL; Basophil% 0.2 % (0-1); Eosinophil# 0.13 X10^3/uL; Eosinophils% 0.6 % (0-5); Hematocrit 28.8 % (40-54); Hemoglobin 9.2 g/dL (13.0-16.5); Lymphocyte # 0.95 X10^3/ul (4.0); Lymphocyte % 4.5 % (19-41); Mean Corp Hgb Conc 31.9 g/dL (32-36); Mean Corpuscular Hgb 28.6 pg (27.0-32.0); Mean Corpuscular Volume 89.4 fL (80-94); Monocyte# 1.41 X10^3/uL; Monocyte% 6.7 % (0-10); NRBC Flagged by Analyzer 0 % (0-5); Neutrophil # 18.13 X10^3/uL (2.7-7.7); Neutrophil % 86.4 % (47-70); Platelet Count 268 K/mm3 (150-450); RBC Distribution Width CV 15.3 % (11.6-14.6); RBC Distribution Width SD 48.7 fl (35.1-43.9); Red Blood Count 3.22 M/mm3 (4.6-6.2)
--- NOTE | 2019-10-22 15:35 | NURSING ---
PT TO MRI VIA BED.
--- NOTE | 2019-10-22 15:49 | CPS ---
not called for preop covid or ekg. went up to check on patient and do ekg and swab. patient not in room, this was at 16:45
[2019-10-22 16:19] LABS: ALB/GLOB Ratio 0.3 RATIO (0.9-2.4); AST(SGOT) 27 U/L (15-37); Alanine Aminotransfer ALT/SGPT 44 U/L (16-61); Albumin, Serum 1.5 g/dL (3.2-5.0); Alkaline Phosphatase 461 U/L (45-117); Anion Gap 9 (5-15); BUN 43 mg/dL (7-18); BUN/Creat Ratio 10.9 RATIO (10-20); Calcium,Total 7.5 mg/dL (8.5-10.1); Chloride 104 mmol/L (98-107); Creatinine, Serum 3.96 mg/dL (0.70-1.30); EST Glomerular Filtration Rate 18 mL/min (>60); Est Glom Filt Rate - Afr Amer 21 mL/min (>60); Estimated Creatinine Clearance 20.37 ml/min; Globulin 5.1 g/dL (2.2-4.2); Glucose 87 mg/dL (74-106); Magnesium 2.1 mg/dL (1.6-2.6); Phosphorus 6.2 mg/dL (2.5-4.9); Potassium 3.9 mmol/L (3.5-5.1); Prealbumin 10.3 mg/dL (20.0-40.0); Protein, Total 6.6 g/dL (6.4-8.2); Sodium Level 138 mmol/L (136-145)
[2019-10-22 17:00] LABS: Bedside Glucose 144 mg/dL (70-110)
[2019-10-22] MEDS: Furosemide 80 MG Tablet PO (17:20)
[2019-10-22] MEDS: Calcium Acetate 667 MG Capsule PO (17:20)
[2019-10-22 19:45] VITALS: BP 173/101; PULSE 83; RESP 18; TEMP 37.2; O2SAT 97
[2019-10-22] MEDS: Acetaminophen 325 MG Tablet 650 MG PO (20:11)
[2019-10-22] MEDS: oxyCODONE 5 MG Tablet PO (20:12)
--- NOTE | 2019-10-22 20:15 | CON.PCM_ITS ---
Reason for Consult Date of Consultation: 10/22/19 Reason for Consultation: left foot cellulitis History of Present Illness: The patient is a 43 year old M with diabetes, pad, end stage renal disease directly admitted this morning by me for diabetic foot infection. He has recent aortogram with baloon angioplasty by vascular surgery at [facility] on September 18. He later underwent left 4th toe amputation and removal of left hallux toenail by Dr. Pantoja at [facility]. He was found to have mssa but states he did not discharge on any antibiotic. He was subsequently seen by me 2 weeks ago at which time I prescribed him augmentin and recommended santyl to left hallux and left lateral heel and he has been applying betadine to the left 4th toe amputation site. he presented to [facility] today to establish care with Dr. nigel Pritchard, vascular surgery. I was asked to evaluate the wound of left foot where his foot was found to be swollen, red, painful with drainage. I recommended admission to hospital and he was placed on zosyn and mri was performed. I am seeing patient this evening to discuss mri and establish plan going forward. Past Medical History Past Medical History (Chronic Problems): Chronic Problems (Last Reviewed 08/01/19 @ 12:44 by Dee Mukherjee) Diabetic peripheral neuropathy (Chronic) Chronic renal failure, stage 4 (severe) (Chronic) Gastroparesis due to DM (Chronic) IBS (irritable bowel syndrome) (Chronic) HTN (hypertension) (Chronic) Diabetes type I (Chronic) Myasthenia gravis (Chronic) Medical History: Medical History (Last Reviewed 08/01/19 @ 12:44 by Dee Mukherjee) Chronic renal failure, stage 4 (severe) (Chronic) N18.4 Gastroparesis due to DM (Chronic) E11.43, K31.84 Cellulitis of right leg (Inactive) L03.115 IBS (irritable bowel syndrome) (Chronic) HTN (hypertension) (Chronic) I10 Diabetes type I (Chronic) Myasthenia gravis (Chronic) G70.00 Allergies levofloxacin [From Levaquin] Allergy (Verified 09/17/19 15:02) Pain in joints lisinopril Allergy (Verified 09/17/19 15:02) Angioedema losartan Allergy (Verified 09/17/19 15:02) Angioedema metoclopramide HCl [From Reglan] Allergy (Verified 09/17/19 15:02) Hives Home Medications: Ambulatory Orders Medication Instructions Recorded Albuterol Inhaler [Ventolin Hfa] 2 puff INHALATION Q4H PRN PRN 08/19/14 Budesonide/Formoterol 160/4.5 2 puff INHALATION BID 02/23/16 [Symbicort 160/4.5 Mcg Inhaler (SP)] Pyridostigmine [place] [Mestinon] 60 mg PO TID PRN PRN 12/03/16 Amlodipine [Norvasc] 10 mg PO DAILY 08/30/18 Levothyroxine [Synthroid] 50 mcg PO DAILY 08/30/18 Phenergan tablet 25 mg PO Q8H PRN PRN 08/30/18 amitriptyline 10 mg tablet 10 mg PO DAILY 03/12/19 furosemide 20 mg tablet 80 mg PO BID tab 03/12/19 metoprolol tartrate 50 mg tablet 100 mg PO BID tab 03/12/19 omeprazole 10 mg capsule,delayed 40 mg PO QHS cap 03/12/19 release Insulin Pump/Infus. Set/Meter 0 03/22/19 Montelukast Sodium [Singulair] 10 mg PO QHS 03/22/19 Ondansetron [Zofran Odt] 4 mg PO Q12H PRN PRN 03/22/19 Pregabalin [Lyrica] 75 mg PO BID 03/22/19 Aspirin 81 mg PO DAILY 10/22/19 Calcium Acetate [Phoslo Gel Cap] 667 mg PO TIDCM 10/22/19 Clopidogrel Bisulfate [Clopidogrel] 75 mg PO DAILY 10/22/19 Surgical History: Surgical History (Last Reviewed 08/01/19 @ 12:44 by Dee Mukherjee) S/P thymectomy Z90.89 Status post creation of arteriovenous fistula Onset Date: ~04/2019 Z98.890 Status post laparoscopic cholecystectomy Z90.49 Surgical History: - - Thymectomy, cholecystectomy, teeth resection. Psychiatric History: No pertinent psych hx Smoking Status: Former smoker Tobacco Use: Cigarettes - *Family History Maternal Family History: Family History (Last Reviewed 08/01/19 @ 12:44 by Dee Mukherjee) Father Cancer Hypertension Mother Thyroid disorder History Items: - Paternal Family History: Family History (Last Reviewed 08/01/19 @ 12:44 by Dee Mukherjee) Father Cancer Hypertension Mother Thyroid disorder History Items: Cancer, Hypertension, - Patient Problems: Active and Suspected Problems (Last Reviewed 08/01/19 @ 12:44 by Dee Mukherjee) Foot ulcer, left (Acute) Left leg and foot cellulitis (Acute) Objective: patient is alert and orientated x 3. he does not appear in any distress vascular: DP and PT pulses are nonpalpable to left foot. CFT is delayed. Skin temperature is warm. the left foot is diffusely swollen and there is redness extending to left ankle. Derm: there is full thickness wound dehisence in left 4th interspace. there is necrotic eschar to tip of left hallux. there are scattered eschars to lateral left heel. m/s: there is pain with dorsiflexion and plantarflexion of left ankle. there is diffuse pain across left midfoot. there is swelling of left foot extending to ankle. no calf pain n oted. mri reviewed. there is decreased T1 and increased T2 in left 3rd, 4th and 5th metatarsal. there is marrow changes in left talus and left calcaneus. there is ankle effusion to left lower extremity. there is diffuse edema and cellulitis of left foot PVR reviewed from [facility] demonstrates calcified vessels with dampening of waveforms at ankle and midfoot. - Physical Exam Vitals/I&O's: Vital Signs Temp Pulse Resp BP Pulse Ox 98.6 F 82 16 180/92 H 97 10/22/19 13:22 10/22/19 13:22 10/22/19 13:22 10/22/19 13:22 10/22/19 13:22 Oxygen Delivery Method Room Air Weight: 60.5 kg Body Mass Index (BMI) 21.5 Finger Stick Blood Glucose 406 Laboratory Results 10/22/19 14:40: WBC 21.0 H, RBC 3.22 L, Hgb 9.2 L, Hct 28.8 L, MCV 89.4, MCH 28.6, MCHC 31.9 L, RDW Std Deviation 48.7 H, RDW Coeff of Fidel 15.3 H, Plt Count 268, MPV 12.0, Immature Gran % (Auto) 1.600 H, Neut % (Auto) 86.4 H, Lymph % (Auto) 4.5 L, Bra[place] % (Auto) 6.7, Eos % (Auto) 0.6, Baso % (Auto) 0.2, Absolute Neuts (auto) 18.1 H, Absolute Lymphs (auto) 0.95, Nucleated RBC % 0 10/22/19 14:40: Sodium 138, Potassium 3.9, Chloride 104, Carbon Dioxide 25.0, Anion Gap 9, BUN 43 H, Creatinine 3.96 H, Estim Creat Clear Calc 20.37, Est GFR (MDRD) Af Amer 21 L, Est GFR (MDRD) Non-Af 18 L, BUN/Creatinine Ratio 10.9, Glucose 87, Calcium 7.5 L, Phosphorus 6.2 H, Magnesium 2.1, Total Bilirubin 0 .30, AST 27, ALT 44, Alkaline Phosphatase 461 H, C-React Prot Ext Range 103.00 H , Total Protein 6.6, Albumin 1.5 L, Globulin 5.1 H, Albumin/Globulin Ratio 0.3 L , Prealbumin 10.3 L 10/22/19 16:49: POC Glucose 144 H Current Medications Acetaminophen (Tylenol) 650 mg PO Q6H PRN PRN PRN Reason: Pain Score 1-10/Temp > 100.7 F Last Admin: 10/22/19 20:11 Dose: 650 mg Documented by: Al Hydroxide/Mg Hydroxide (Mylanta Ii) 30 ml PO Q6H PRN PRN PRN Reason: Gastric Burning Albuterol Sulfate (Ventolin Aerosols) 2.5 mg INHALATION Q2H PRN PRN PRN Reason: Shortness of Breath/Wheezing Amitriptyline HCl (Elavil) 10 mg PO QHS [facility] Amlodipine Besylate (Norvasc) 10 mg PO DAILY [facility] Aspirin (Aspirin, Baby) 81 mg PO DAILY@0800 [facility] Budesonide (Pulmicort Aerosol) 0.5 mg INHALATION Q12H.RT [facility] Calcium Acetate (Phoslo Gel Cap) 667 mg PO TIDCM [facility] Last Admin: 10/22/19 17:20 Dose: 667 mg Documented by: Clopidogrel Bisulfate (Plavix) 75 mg PO DAILY [facility] Dextrose (D50w Syringe) 0 gm IV X1 PRN; Protocol PRN Reason: Hypoglycemia Famotidine (Pepcid) 20 mg PO BID [facility] Furosemide (Lasix) 80 mg PO BIDLX [facility] Last Admin: 07/28/20 17:20 Dose: 80 mg Documented by: Glucagon () 1 mg IM .X1 PRN PRN Reason: Hypoglycemia Heparin Sodium (Porcine) (Heparin Na) 5,000 unit SC Q8 [facility] Sodium Chloride () 250 mls @ 15 mls/hr IV .[id number] PRN PRN Reason: Saline Flush Last Admin: 10/22/19 14:35 Dose: 15 mls/hr Documented by: Piperacillin Sod/Tazobactam (Sod 3.375 gm/ Sodium Chloride) 50 mls @ 12.5 mls/hr IV Q12 [facility] Last Admin: 10/22/19 14:35 Dose: 12.5 mls/hr Documented by: Insulin Human Lispro (Humalog Kwikpen (Bkc)) 0 unit SC ACHS [facility]; Protocol Last Admin: 10/22/19 16:49 Dose: Not Given Documented by: Levothyroxine Sodium (Synthroid) 50 mcg PO DAILY@0600 [facility] Metoprolol Tartrate (Lopressor (Beta Allen)) 100 mg PO BID [facility] Montelukast Sodium (Singulair) 10 mg PO QHS [facility] Morphine Sulfate () 2 mg IV Q3H PRN PRN PRN Reason: Pain Score 6-10/10 Last Admin: 10/22/19 18:11 Dose: 2 mg Documented by: Nitroglycerin (Nitrostat) 0.4 mg SUBLINGUAL Q5M PRN PRN Reason: CARDIAC/CHEST PAIN Ondansetron HCl (Zofran Odt) 4 mg PO Q12H PRN PRN PRN Reason: NAUSEA Oxycodone HCl (Oxyir) 5 mg PO Q4H PRN PRN PRN Reason: Pain Score 4-5/10 Last Admin: 10/22/19 20:12 Dose: 5 mg Documented by: Pantoprazole Sodium (Protonix) 40 mg PO QHS [facility] Polyethylene Glycol (Miralax) 17 gm PO DAILY [facility] Pregabalin (Lyrica) 75 mg PO BID [facility] Prochlorperazine Edisylate (Compazine Iv) 5 mg IV Q4H PRN PRN PRN Reason: Breakthrough nausea/vomiting Promethazine HCl (Phenergan) 12.5 mg IV Q6H PRN PRN PRN Reason: Breakthrough nausea/vomiting Last Admin: 10/22/19 14:57 Dose: 12.5 mg Documented by: Promethazine HCl (Phenergan Tablet) 25 mg PO Q8H PRN PRN PRN Reason: NAUSEA Pyridostigmine [place] (Mestinon) 60 mg PO TID PRN PRN PRN Reason: MYASTHENIA GRAVIS Senna/Docusate Sodium (Senokot-S, Surekha-Colace) 2 tablet PO BID PRN PRN PRN Reason: Constipation Sodium Chloride () 10 - 40 ml IV UD PRN PRN Reason: SALINE FLUSH Last Admin: 10/22/19 18:11 Dose: 10 ml Documented by: Assessment/Plan All Active Problems (Last Reviewed 08/01/19 @ 12:44 by Dee Mukherjee) Foot ulcer, left (Acute) Left leg and foot cellulitis (Acute) Patient was examined and I discussed options in presence of Bassam Soto RN. I had long discussion regarding clinical findings of left foot and ankle and I had long discussion regarding mri. MRI is suggestive of osteomyelitis of left 3rd, 4th and 5th metatarsal with possible osteomyelitis or early osteomyelitis of calcaneus and talus. further, there is possible septic joint vs synovitis of left ankle. I had long discussion regarding his care. I recommended joint aspiration of left ankle to r/o septic joint. I planned on doing this tonight. I also discussed options regarding his left foot with possible infections of 3rd, 4th, 5th metatarsal with possible infection of calcaneus and cuboid. Regarding the possible osteomyelitis of 3-5th metatarsal, I discussed partial 4th ray resection with biopsy of 3rd and 5th metatarsal vs TMA. In addition, I offered biopsy of calcaneus and talus. this plan would be an option to perform limb salvage. I am prepared to offer this for patient tomorrow. I informed patient that he may or may not heal a tma directly and may require subsequent debridements vs aputation. This patient does not wish to pursue multiple surgeries or debridement. He desires one and done treatment. I informed him that I cannot guarantee that a tma would heal nor would he not be at risk of slow healing or need for further surgery or debridements. Patient states that he desires care that can get rid of his wounds and allow him to go on with his life. He is now interested in bka. I discussed bka with patient. patient understands that bka may be a definitive cure but it will place risk on his right limb. it will be critical to keep close follow-up on his right foot. I again discussed limb salvage but he states that this limb is a stress not only to him but everyone in his family. He is now prepared to proceed with bka. I informed patient that mortality following bka increases. I made a call out to ortho and was informed that the job specification writer provider does not do bka. I will make recommendation for transfer. I offered joint aspiration this evening and in presence of nursing staff, he declined stating his mind is made up regarding bka. I will have patient transfer to higher level center where bka can be performed. I did message Dr. Espinoza who will arrange for transfer for patient tomorrow.
[2019-10-22] MEDS: Budesonide Respules 0.5 MG/2 ML AMPUL.NEB. INHALATION (20:26)
[2019-10-22] MEDS: Albuterol 2.5 MG/3 ML VIAL.NEB. INHALATION (20:26)
[2019-10-22 20:27] VITALS: PULSE 88; RESP 18
[2019-10-22 20:36] VITALS: O2SAT 98
[2019-10-22 21:18] VITALS: PULSE 86
[2019-10-22] MEDS: Metoprolol Tartrate 100 MG Tablet PO (21:18)
[2019-10-22] MEDS: Insulin Lispro 100 UNIT/ML INSULN.PEN SC (21:28)
[2019-10-22] MEDS: Famotidine 20 MG Tablet PO (21:34)
[2019-10-22] MEDS: Pregabalin 75 MG Capsule PO (21:34)
[2019-10-22] MEDS: Pantoprazole Sodium 40 MG Tablet PO (21:34)
[2019-10-22] MEDS: Montelukast 10 MG Tablet PO (21:34)
[2019-10-22 21:46] LABS: Bedside Glucose 278 mg/dL (70-110)
[2019-10-22 21:54] LABS: Probe Check PASS; Specimen Processing Control PASS
[2019-10-22 21:55] LABS: M R Staph aureus DNA By PCR Negative (Negative); Probe Check PASS; Specimen Processing Control PASS; Staph aureus DNA By PCR POSITIVE (Negative)
[2019-10-23] VITALS (9 sets, daily range): BP systolic 116–170; BP diastolic 66–92; PULSE 65–81; RESP 16–18; TEMP 36.4–36.9; O2SAT 95–100
--- NOTE | 2019-10-23 00:21 | DIALYSIS ---
Pt tolerated HD tx well. net UF -2400ml. See flow record for tx data.
[2019-10-23] MEDS: Heparin Injection (Vial) 5,000 UNIT/ML VIAL 5000 UNIT SC ×3 (00:22→14:38)
[2019-10-23] MEDS: Morphine 2 MG/ML Syringe IV ×4 (02:15→19:51)
[2019-10-23 05:41] LABS: Absolute Lymphocyte Count 0.72 X10^3/uL (0.83-4.51); Absolute Neutrophil Count 12.7 X10^3/uL (2.0-7.7); Basophil# 0.05 X10^3/uL; Basophil% 0.3 % (0-1); Eosinophil# 0.21 X10^3/uL; Eosinophils% 1.4 % (0-5); Hematocrit 25.8 % (40-54); Hemoglobin 8.1 g/dL (13.0-16.5); Lymphocyte # 0.72 X10^3/ul (4.0); Lymphocyte % 4.9 % (19-41); Mean Corp Hgb Conc 31.4 g/dL (32-36); Mean Corpuscular Hgb 28.3 pg (27.0-32.0); Mean Corpuscular Volume 90.2 fL (80-94); Mean Platelet Vol. 11.8 fl (6.2-12.0); Monocyte# 0.98 X10^3/uL; Monocyte% 6.6 % (0-10); NRBC Flagged by Analyzer 0 % (0-5); Neutrophil # 12.65 X10^3/uL (2.7-7.7); Neutrophil % 85.7 % (47-70); Platelet Count 197 K/mm3 (150-450); RBC Distribution Width CV 15.3 % (11.6-14.6); RBC Distribution Width SD 49.1 fl (35.1-43.9); Red Blood Count 2.86 M/mm3 (4.6-6.2); White Blood Count 14.8 K/mm3 (4.4-11.0)
[2019-10-23 05:49] LABS: International Normalized Ratio 1.2
[2019-10-23 05:57] LABS: Anion Gap 6 (5-15); BUN 32 mg/dL (7-18); BUN/Creat Ratio 10.6 RATIO (10-20); Calcium,Total 7.3 mg/dL (8.5-10.1); Chloride 100 mmol/L (98-107); Creatinine, Serum 3.03 mg/dL (0.70-1.30); EST Glomerular Filtration Rate 24 mL/min (>60); Est Glom Filt Rate - Afr Amer 29 mL/min (>60); Estimated Creatinine Clearance 26.62 ml/min; Glucose 167 mg/dL (74-106); Potassium 3.8 mmol/L (3.5-5.1); Sodium Level 133 mmol/L (136-145)
[2019-10-23] MEDS: Levothyroxine 50 MCG Tablet PO (06:43)
[2019-10-23] MEDS: Insulin Lispro 100 UNIT/ML INSULN.PEN SC ×3 (06:43→16:57)
[2019-10-23 06:55] LABS: Bedside Glucose 169 mg/dL (70-110)
[2019-10-23 07:04] LABS: Hemoglobin A1c 6.3 % (3.8-5.6)
[2019-10-23] MEDS: Budesonide Respules 0.5 MG/2 ML AMPUL.NEB. INHALATION ×2 (07:14→18:45)
[2019-10-23] MEDS: Albuterol 2.5 MG/3 ML VIAL.NEB. INHALATION ×2 (07:14→18:45)
--- NOTE | 2019-10-23 07:50 | PCM.PN.SRG ---
Patient Problems: Active and Suspected Problems (Last Reviewed 08/01/19 @ 12:44 by Dee Mukherjee) Foot ulcer, left (Acute) Left leg and foot cellulitis (Acute) Subjective: patient is seen this morning without any complaints. patient denies n/v/f/c. patient states the pain in left foot has improved. He has given serious thought regarding his treatment and would like to proceed with transfer to discuss below knee amputation. Objective: patient is alert and orientated x 3. he does not appear in any distress left foot with full thickness dehiscence to left 4th interspace. the wound extends to 4th metatarsal head. there is no purulence on exam. the redness and warmth is trending down. there is left hallux with black eschar along distal nail bed. there is scattered black eschars noted to the posterior inferior lateral heel. no calf pain noted. - Physical Exam Vitals/I&O's: Vital Signs Temp Pulse Resp BP Pulse Ox 97.8 F 81 18 144/84 H 97 10/23/19 01:55 10/23/19 07:17 10/23/19 07:17 10/23/19 01:55 10/23/19 07:17 Oxygen Delivery Method Room Air Weight: 60.5 kg Body Mass Index (BMI) 21.5 Finger Stick Blood Glucose 406 Intake and Output for Last 24 Hours 10/21/19 10/22/19 10/23/19 23:59 23:59 23:59 Intake Total 375 / 375 396 / 396 Output Total 2400 / 2400 Balance 375 / -2024 -2003 / Laboratory Results 10/22/19 14:40: WBC 21.0 H, RBC 3.22 L, Hgb 9.2 L, Hct 28.8 L, MCV 89.4, MCH 28.6, MCHC 31.9 L, RDW Std Deviation 48.7 H, RDW Coeff of Fidel 15.3 H, Plt Count 268, MPV 12.0, Immature Gran % (Auto) 1.600 H, Neut % (Auto) 86.4 H, Lymph % (Auto) 4.5 L, [place] % (Auto) 6.7, Eos % (Auto) 0.6, Baso % (Auto) 0.2, Absolute Neuts (auto) 18.1 H, Absolute Lymphs (auto) 0.95, Nucleated RBC % 0 10/22/19 14:40: Sodium 138, Potassium 3.9, Chloride 104, Carbon Dioxide 25.0, Anion Gap 9, BUN 43 H, Creatinine 3.96 H, Estim Creat Clear Calc 20.37, Est GFR (MDRD) Af Amer 21 L, Est GFR (MDRD) Non-Af 18 L, BUN/Creatinine Ratio 10.9, Glucose 87, Calcium 7.5 L, Phosphorus 6.2 H, Magnesium 2.1, Total Bilirubin 0.30, AST 27, ALT 44, Alkaline Phosphatase 461 H, C-React Prot Ext Range 103.00 H, Total Protein 6.6, Albumin 1.5 L, Globulin 5.1 H, Albumin/Globulin Ratio 0.3 L, Prealbumin 10.3 L 10/22/19 16:49: POC Glucose 144 H 10/22/19 19:50: S.aureus Protein A PCR POSITIVE H, MRSA (PCR) Negative 10/22/19 20:35: COVID-19 (TENZIN) Negative 10/22/19 21:13: POC Glucose 278 H 10/23/19 05:30: Sodium 133 L, Potassium 3.8, Chloride 100, Carbon Dioxide 27.0, Anion Gap 6, BUN 32 H, Creatinine 3.03 H, Estim Creat Clear Calc 26.62, Est GFR (MDRD) Af Amer 29 L, Est GFR (MDRD) Non-Af 24 L, BUN/Creatinine Ratio 10.6, Glucose 167 H, Calcium 7.3 L 10/23/19 05:30: WBC 14.8 H, RBC 2.86 L, Hgb 8.1 L, Hct 25.8 L, MCV 90.2, MCH 28.3, MCHC 31.4 L, RDW Std Deviation 49.1 H, RDW Coeff of Fidel 15.3 H, Plt Count 197, MPV 11.8, Immature Gran % (Auto) 1.100 H, Neut % (Auto) 85.7 H, Lymph % (Auto) 4.9 L, [place] % (Auto) 6.6, Eos % (Auto) 1.4, Baso % (Auto) 0.3, Absolute Neuts (auto) 12.7 H, Absolute Lymphs (auto) 0.72 L, Nucleated RBC % 0 07/29/20 05:30: PT 15.0 H, INR 1.2 10/23/19 05:30: Hemoglobin A1c 6.3 H 10/23/19 06:40: POC Glucose 169 H Current Medications Acetaminophen (Tylenol) 650 mg PO Q6H PRN PRN PRN Reason: Pain Score 1-10/Temp > 100.7 F Last Admin: 10/22/19 20:11 Dose: 650 mg Documented by: Al Hydroxide/Mg Hydroxide (Mylanta Ii) 30 ml PO Q6H PRN PRN PRN Reason: Gastric Burning Albuterol Sulfate (Ventolin Aerosols) 2.5 mg INHALATION Q2H PRN PRN PRN Reason: Shortness of Breath/Wheezing Last Admin: 10/23/19 07:14 Dose: 2.5 mg Documented by: Amitriptyline HCl (Elavil) 10 mg PO QHS [facility] Amlodipine Besylate (Norvasc) 10 mg PO DAILY [facility] Aspirin (Aspirin, Baby) 81 mg PO DAILY@0800 [facility] Budesonide (Pulmicort Aerosol) 0.5 mg INHALATION Q12H.RT [facility] Last Admin: 10/23/19 07:14 Dose: 0.5 mg Documented by: Calcium Acetate (Phoslo Gel Cap) 667 mg PO TIDCM [facility] Last Admin: 10/22/19 17:20 Dose: 667 mg Documented by: Clopidogrel Bisulfate (Plavix) 75 mg PO DAILY [facility] Dextrose (D50w Syringe) 0 gm IV X1 PRN; Protocol PRN Reason: Hypoglycemia Famotidine (Pepcid) 20 mg PO BID [facility] Last Admin: 10/22/19 21:34 Dose: 20 mg Documented by: Furosemide (Lasix) 80 mg PO BIDLX [facility] Last Admin: 10/22/19 17:20 Dose: 80 mg Documented by: Glucagon () 1 mg IM .X1 PRN PRN Reason: Hypoglycemia Heparin Sodium (Porcine) (Heparin Na) 5,000 unit SC Q8 [facility] Last Admin: 10/23/19 06:43 Dose: 5,000 unit Documented by: Sodium Chloride () 250 mls @ 15 mls/hr IV .[id number] PRN PRN Reason: Saline Flush Last Infusion: 10/23/19 06:59 Dose: 0 mls/hr Documented by: Piperacillin Sod/Tazobactam (Sod 3.375 gm/ Sodium Chloride) 50 mls @ 12.5 mls/hr IV Q12 [facility] Last Infusion: 10/22/19 19:10 Dose: Infused Documented by: Insulin Human Lispro (Humalog [place] (Bkc)) 0 unit SC [facility]; Protocol Last Admin: 10/23/19 06:43 Dose: 2 units Documented by: Levothyroxine Sodium (Synthroid) 50 mcg PO DAILY@0600 [facility] Last Admin: 10/23/19 06:43 Dose: 50 mcg Documented by: Metoprolol Tartrate (Lopressor (Beta [place])) 100 mg PO BID [facility] Last Admin: 10/22/19 21:18 Dose: 100 mg Documented by: Montelukast Sodium (Singulair) 10 mg PO QHS [facility] Last Admin: 10/22/19 21:34 Dose: 10 mg Documented by: Morphine Sulfate () 2 mg IV Q3H PRN PRN PRN Reason: Pain Score 6-10/10 Last Admin: 10/23/19 06:45 Dose: 2 mg Documented by: Nitroglycerin (Nitrostat) 0.4 mg SUBLINGUAL Q5M PRN PRN Reason: CARDIAC/CHEST PAIN Ondansetron HCl (Zofran Odt) 4 mg PO Q12H PRN PRN PRN Reason: NAUSEA Oxycodone HCl (Oxyir) 5 mg PO Q4H PRN PRN PRN Reason: Pain Score 4-5/10 Last Admin: 10/22/19 20:12 Dose: 5 mg Documented by: Pantoprazole Sodium (Protonix) 40 mg PO QHS [facility] Last Admin: 10/22/19 21:34 Dose: 40 mg Documented by: Polyethylene Glycol (Miralax) 17 gm PO DAILY [facility] Pregabalin (Lyrica) 75 mg PO BID [facility] Last Admin: 10/22/19 21:34 Dose: 75 mg Documented by: Prochlorperazine Edisylate (Compazine Iv) 5 mg IV Q4H PRN PRN PRN Reason: Breakthrough nausea/vomiting Promethazine HCl (Phenergan) 12.5 mg IV Q6H PRN PRN PRN Reason: Breakthrough nausea/vomiting Last Admin: 10/22/19 14:57 Dose: 12.5 mg Documented by: Promethazine HCl (Phenergan Tablet) 25 mg PO Q8H PRN PRN PRN Reason: NAUSEA Pyridostigmine [place] (Mestinon) 60 mg PO TID PRN PRN PRN Reason: MYASTHENIA GRAVIS Senna/Docusate Sodium (Senokot-S, Surekha-Colace) 2 tablet PO BID PRN PRN PRN Reason: Constipation Sodium Chloride () 10 - 40 ml IV UD PRN PRN Reason: SALINE FLUSH Last Admin: 10/22/19 18:11 Dose: 10 ml Documented by: Medical Necessity - Tobacco Use Smoking Status: Former smoker Tobacco Use: Cigarettes Assessment/Plan All Active Problems (Last Reviewed 08/01/19 @ 12:44 by Dee Mukherjee) Foot ulcer, left (Acute) Left leg and foot cellulitis (Acute) patient was examined this morning in presence of nursing staff. A sterile irrigation of left foot open wound was performed. patients redness is improved. his white count is down from 21 to 14. he is afebrile with vital signs stable. I again discussed his left foot infection . MRI does suggest osteomyelitis of left 3rd metatarsal, left 4th metatarsal, left 5th metatarsal. there is marrow changes of left talus and left calcaneus that cannot exclude osteomyelitis. I again had long discussion with patient. He could elect for transmetatarsal amputation and biopsy of calcaneus and talus. I again offered this to patient. Although he undertands this is an option, he would like to proceed with lower leg amputation. He does not wish to pursue surgery on his foot only to see it not heal and he result in need for further amputation. He desires more definitive care so he can get on with his life. I had long discussion with Dr. Falguni Pritchard and Dr. Chao Robles. Dr. Chao Robles is his vascular surgeon who performed the baloon angioplasty. I would recommend he transfer to [facility] Dr. Robles to discuss possible bka. vascular consult is necessary as it will benefit to make certain prior to any definitive amputation, patient has enough perfusion to heal. Again, we discussed limb salvage as treatment and he would like to transfer for probable bka. will continue to monitor patient while in house but hopeful transfer today.
--- NOTE | 2019-10-23 09:20 | PCM.CONS.R ---
Consultation - Renal 10/23/19 PCP/ Referring MD: Requesting physician: [] Primary care physician: Dr. Jose Graham MD Reason for Consultation:: ESRD HD MWF - History of Present Illness History of Present Illness: The patient is a 43 year old M new to dialysis with ESRD due to DMT1 on HD MWF admitted for nonhealing diabetic foot ulcer on left followed by podiatry at out. He underwent angioplasty with stent of LLE on 09/16 at [facility]. He continues to have red, swollen persistent multiple foot ulcers. He complains of pain, drainage. Denied fever, chills, nausea, vomiting. WBC elevated at 21K on admission improving on iv antibx. Podiatry consulted suggest may need foot amputation. He is a former smoker, quit about a month ago. He received hemodialysis last night for missed treatment Monday. He is scheduled for hemodialysis again today. - Allergies Allergies: Allergies levofloxacin [From Levaquin] Allergy (Verified 09/17/19 15:02) Pain in joints lisinopril Allergy (Verified 09/17/19 15:02) Angioedema losartan Allergy (Verified 09/17/19 15:02) Angioedema metoclopramide HCl [From Reglan] Allergy (Verified 09/17/19 15:02) Hives - Current Medications Current Medications: Current Medications Acetaminophen (Tylenol) 650 mg PO Q6H PRN PRN PRN Reason: Pain Score 1-10/Temp > 100.7 F Last Admin: 10/22/19 20:11 Dose: 650 mg Documented by: Al Hydroxide/Mg Hydroxide (Mylanta Ii) 30 ml PO Q6H PRN PRN PRN Reason: Gastric Burning Albuterol Sulfate (Ventolin Aerosols) 2.5 mg INHALATION Q2H PRN PRN PRN Reason: Shortness of Breath/Wheezing Last Admin: 10/23/19 07:14 Dose: 2.5 mg Documented by: Amitriptyline HCl (Elavil) 10 mg PO QHS [facility] Amlodipine Besylate (Norvasc) 10 mg PO DAILY [facility] Aspirin (Aspirin, Baby) 81 mg PO DAILY@0800 [facility] Budesonide (Pulmicort Aerosol) 0.5 mg INHALATION Q12H.RT [facility] Last Admin: 10/23/19 07:14 Dose: 0.5 mg Documented by: Calcium Acetate (Phoslo Gel Cap) 667 mg PO TIDCM [facility] Last Admin: 10/22/19 17:20 Dose: 667 mg Documented by: Clopidogrel Bisulfate (Plavix) 75 mg PO DAILY [facility] Dextrose (D50w Syringe) 0 gm IV X1 PRN; Protocol PRN Reason: Hypoglycemia Famotidine (Pepcid) 20 mg PO BID [facility] Last Admin: 10/22/19 21:34 Dose: 20 mg Documented by: Furosemide (Lasix) 80 mg PO BIDLX [facility] Last Admin: 10/22/19 17:20 Dose: 80 mg Documented by: Glucagon () 1 mg IM .X1 PRN PRN Reason: Hypoglycemia Heparin Sodium (Porcine) (Heparin Na) 5,000 unit SC Q8 [facility] Last Admin: 10/23/19 06:43 Dose: 5,000 unit Documented by: Sodium Chloride () 250 mls @ 15 mls/hr IV .[id number] PRN PRN Reason: Saline Flush Last Infusion: 10/23/19 06:59 Dose: 0 mls/hr Documented by: Piperacillin Sod/Tazobactam (Sod 3.375 gm/ Sodium Chloride) 50 mls @ 12.5 mls/hr IV Q12 [facility] Last Infusion: 10/22/19 19:10 Dose: Infused Documented by: Insulin Human Lispro (Humalog Kwikpen (Bkc)) 0 unit SC ACHS [facility]; Protocol Last Admin: 10/23/19 06:43 Dose: 2 units Documented by: Levothyroxine Sodium (Synthroid) 50 mcg PO DAILY@0600 [facility] Last Admin: 10/23/19 06:43 Dose: 50 mcg Documented by: Metoprolol Tartrate (Lopressor (Beta Allen)) 100 mg PO BID [facility] Last Admin: 10/22/19 21:18 Dose: 100 mg Documented by: Montelukast Sodium (Singulair) 10 mg PO QHS [facility] Last Admin: 10/22/19 21:34 Dose: 10 mg Documented by: Morphine Sulfate () 2 mg IV Q3H PRN PRN PRN Reason: Pain Score 6-10/10 Last Admin: 10/23/19 06:45 Dose: 2 mg Documented by: Nitroglycerin (Nitrostat) 0.4 mg SUBLINGUAL Q5M PRN PRN Reason: CARDIAC/CHEST PAIN Ondansetron HCl (Zofran Odt) 4 mg PO Q12H PRN PRN PRN Reason: NAUSEA Oxycodone HCl (Oxyir) 5 mg PO Q4H PRN PRN PRN Reason: Pain Score 4-5/10 Last Admin: 10/22/19 20:12 Dose: 5 mg Documented by: Pantoprazole Sodium (Protonix) 40 mg PO QHS [facility] Last Admin: 10/22/19 21:34 Dose: 40 mg Documented by: Polyethylene Glycol (Miralax) 17 gm PO DAILY [facility] Pregabalin (Lyrica) 75 mg PO BID [facility] Last Admin: 10/22/19 21:34 Dose: 75 mg Documented by: Prochlorperazine Edisylate (Compazine Iv) 5 mg IV Q4H PRN PRN PRN Reason: Breakthrough nausea/vomiting Promethazine HCl (Phenergan) 12.5 mg IV Q6H PRN PRN PRN Reason: Breakthrough nausea/vomiting Last Admin: 10/22/19 14:57 Dose: 12.5 mg Documented by: Promethazine HCl (Phenergan Tablet) 25 mg PO Q8H PRN PRN PRN Reason: NAUSEA Pyridostigmine [place] (Mestinon) 60 mg PO TID PRN PRN PRN Reason: MYASTHENIA GRAVIS Senna/Docusate Sodium (Senokot-S, Surekha-Colace) 2 tablet PO BID PRN PRN PRN Reason: Constipation Sodium Chloride () 10 - 40 ml IV UD PRN PRN Reason: SALINE FLUSH Last Admin: 10/22/19 18:11 Dose: 10 ml Documented by: - Past Medical History Past Medical History (Chronic Problems): Chronic Problems (Last Reviewed 08/01/19 @ 12:44 by Dee Mukherjee) Diabetic peripheral neuropathy (Chronic) Chronic renal failure, stage 4 (severe) (Chronic) Gastroparesis due to DM (Chronic) IBS (irritable bowel syndrome) (Chronic) HTN (hypertension) (Chronic) Diabetes type I (Chronic) Myasthenia gravis (Chronic) - Past Surgical History Surgical History: - - Thymectomy, cholecystectomy, teeth resection. - Social History Smoking Status: Former smoker - Family History Maternal Family History: Family History (Last Reviewed 08/01/19 @ 12:44 by Dee Mukherjee) Father Cancer Hypertension Mother Thyroid disorder History Items: - Paternal Family History: Family History (Last Reviewed 08/01/19 @ 12:44 by Dee Mukherjee) Father Cancer Hypertension Mother Thyroid disorder History Items: Cancer, Hypertension, - Review of Systems Constitutional: Reports: Weakness. Denies: Anorexia, Chills, Fever HEENT: Denies: Head Aches Cardiovascular: Denies: Chest Pain, Edema, Syncope Respiratory: Denies: Cough, Shortness of Breath Gastrointestinal: Denies: Nausea, Vomiting Skin: Reports: Wounds - multiple on left foot, heel Neurological: Denies: Tremor, Seizures Hematologic/ Lymphatic: Reports: Anemia. Denies: Hx of blood clot Patient Problems: Active and Suspected Problems (Last Reviewed 08/01/19 @ 12:44 by Dee Mukherjee) Foot ulcer, left (Acute) Left leg and foot cellulitis (Acute) - Physical Exam Vitals/I&O's: Vital Signs Temp Pulse Resp BP Pulse Ox 97.8 F 81 18 144/84 H 97 10/23/19 01:55 10/23/19 07:17 10/23/19 07:17 10/23/19 01:55 10/23/19 07:17 Oxygen Delivery Method Room Air Weight: 60.5 kg Body Mass Index (BMI) 21.5 Finger Stick Blood Glucose 406 Intake and Output for Last 24 Hours 10/21/19 10/22/19 10/23/19 23:59 23:59 23:59 Intake Total 375 / 375 396 / 396 Output Total 2400 / 2400 Balance 375 / -2024 -2003 / General: Alert, Oriented x3, Cooperative, No apparent distress HEENT: PERRLA, EOMI Neck: Supple Lungs: Clear to auscultation Cardiovascular: Regular rate Abdomen: Bowel Sounds Present, Soft, Non Tender, Non-Distended Extremities: No edema, - - left foot wrapped, AVF left forearm with good thrill and bruit Musculoskeletal: Muscle Wasting Neurological: Cranial nerves II-XII grossly intact Psych/Mental Status: Normal Affect, Appropriate, Alert and oriented to time, place, person, mood and affect Laboratory Results 10/22/19 14:40: WBC 21.0 H, RBC 3.22 L, Hgb 9.2 L, Hct 28.8 L, MCV 89.4, MCH 28.6, MCHC 31.9 L, RDW Std Deviation 48.7 H, RDW Coeff of Fidel 15.3 H, Plt Count 268, MPV 12.0, Immature Gran % (Auto) 1.600 H, Neut % (Auto) 86.4 H, Lymph % (Auto) 4.5 L, Hill % (Auto) 6.7, Eos % (Auto) 0.6, Baso % (Auto) 0.2, Absolute Neuts (auto) 18.1 H, Absolute Lymphs (auto) 0.95, Nucleated RBC % 0 10/22/19 14:40: Sodium 138, Potassium 3.9, Chloride 104, Carbon Dioxide 25.0, Anion Gap 9, BUN 43 H, Creatinine 3.96 H, Estim Creat Clear Calc 20.37, Est GFR (MDRD) Af Amer 21 L, Est GFR (MDRD) Non-Af 18 L, BUN/Creatinine Ratio 10.9, Glucose 87, Calcium 7.5 L, Phosphorus 6.2 H, Magnesium 2.1, Total Bilirubin 0.30, AST 27, ALT 44, Alkaline Phosphatase 461 H, C-React Prot Ext Range 103.00 H, Total Protein 6.6, Albumin 1.5 L, Globulin 5.1 H, Albumin/Globulin Ratio 0.3 L, Prealbumin 10.3 L 10/22/19 16:49: POC Glucose 144 H 10/22/19 19:50: S.aureus Protein A PCR POSITIVE H, MRSA (PCR) Negative 10/22/19 20:35: COVID-19 (TENZIN) Negative 10/22/19 21:13: POC Glucose 278 H 10/23/19 05:30: Sodium 133 L, Potassium 3.8, Chloride 100, Carbon Dioxide 27.0, Anion Gap 6, BUN 32 H, Creatinine 3.03 H, Estim Creat Clear Calc 26.62, Est GFR (MDRD) Af Amer 29 L, Est GFR (MDRD) Non-Af 24 L, BUN/Creatinine Ratio 10.6, Glucose 167 H, Calcium 7.3 L 10/23/19 05:30: WBC 14.8 H, RBC 2.86 L, Hgb 8.1 L, Hct 25.8 L, MCV 90.2, MCH 28.3, MCHC 31.4 L, RDW Std Deviation 49.1 H, RDW Coeff of Fidel 15.3 H, Plt Count 197, MPV 11.8, Immature Gran % (Auto) 1.100 H, Neut % (Auto) 85.7 H, Lymph % (Auto) 4.9 L, Hill % (Auto) 6.6, Eos % (Auto) 1.4, Baso % (Auto) 0.3, Absolute Neuts (auto) 12.7 H, Absolute Lymphs (auto) 0.72 L, Nucleated RBC % 0 10/23/19 05:30: PT 15.0 H, INR 1.2 10/23/19 05:30: Hemoglobin A1c 6.3 H 10/23/19 06:40: POC Glucose 169 H Current Medications Acetaminophen (Tylenol) 650 mg PO Q6H PRN PRN PRN Reason: Pain Score 1-10/Temp > 100.7 F Last Admin: 10/22/19 20:11 Dose: 650 mg Documented by: Al Hydroxide/Mg Hydroxide (Mylanta Ii) 30 ml PO Q6H PRN PRN PRN Reason: Gastric Burning Albuterol Sulfate (Ventolin Aerosols) 2.5 mg INHALATION Q2H PRN PRN PRN Reason: Shortness of Breath/Wheezing Last Admin: 10/23/19 07:14 Dose: 2.5 mg Documented by: Amitriptyline HCl (Elavil) 10 mg PO QHS [facility] Amlodipine Besylate (Norvasc) 10 mg PO DAILY [facility] Aspirin (Aspirin, Baby) 81 mg PO DAILY@0800 [facility] Budesonide (Pulmicort Aerosol) 0.5 mg INHALATION Q12H.RT [facility] Last Admin: 10/23/19 07:14 Dose: 0.5 mg Documented by: Calcium Acetate (Phoslo Gel Cap) 667 mg PO TIDCM [facility] Last Admin: 10/22/19 17:20 Dose: 667 mg Documented by: Clopidogrel Bisulfate (Plavix) 75 mg PO DAILY [facility] Dextrose (D50w Syringe) 0 gm IV X1 PRN; Protocol PRN Reason: Hypoglycemia Famotidine (Pepcid) 20 mg PO BID [facility] Last Admin: 10/22/19 21:34 Dose: 20 mg Documented by: Furosemide (Lasix) 80 mg PO BIDLX [facility] Last Admin: 10/22/19 17:20 Dose: 80 mg Documented by: Glucagon () 1 mg IM .X1 PRN PRN Reason: Hypoglycemia Heparin Sodium (Porcine) (Heparin Na) 5,000 unit SC Q8 [facility] Last Admin: 10/23/19 06:43 Dose: 5,000 unit Documented by: Sodium Chloride () 250 mls @ 15 mls/hr IV .[id number] PRN PRN Reason: Saline Flush Last Infusion: 10/23/19 06:59 Dose: 0 mls/hr Documented by: Piperacillin Sod/Tazobactam (Sod 3.375 gm/ Sodium Chloride) 50 mls @ 12.5 mls/hr IV Q12 [facility] Last Infusion: 10/22/19 19:10 Dose: Infused Documented by: Insulin Human Lispro (Humalog Kwikpen (Bkc)) 0 unit SC ACHS [facility]; Protocol Last Admin: 10/23/19 06:43 Dose: 2 units Documented by: Levothyroxine Sodium (Synthroid) 50 mcg PO DAILY@0600 [facility] Last Admin: 10/23/19 06:43 Dose: 50 mcg Documented by: Metoprolol Tartrate (Lopressor (Beta [place])) 100 mg PO BID [facility] Last Admin: 10/22/19 21:18 Dose: 100 mg Documented by: Montelukast Sodium (Singulair) 10 mg PO QHS [facility] Last Admin: 10/22/19 21:34 Dose: 10 mg Documented by: Morphine Sulfate () 2 mg IV Q3H PRN PRN PRN Reason: Pain Score 6-10/10 Last Admin: 10/23/19 06:45 Dose: 2 mg Documented by: Nitroglycerin (Nitrostat) 0.4 mg SUBLINGUAL Q5M PRN PRN Reason: CARDIAC/CHEST PAIN Ondansetron HCl (Zofran Odt) 4 mg PO Q12H PRN PRN PRN Reason: NAUSEA Oxycodone HCl (Oxyir) 5 mg PO Q4H PRN PRN PRN Reason: Pain Score 4-5/10 Last Admin: 10/22/19 20:12 Dose: 5 mg Documented by: Pantoprazole Sodium (Protonix) 40 mg PO QHS [facility] Last Admin: 10/22/19 21:34 Dose: 40 mg Documented by: Polyethylene Glycol (Miralax) 17 gm PO DAILY [facility] Pregabalin (Lyrica) 75 mg PO BID [facility] Last Admin: 10/22/19 21:34 Dose: 75 mg Documented by: Prochlorperazine Edisylate (Compazine Iv) 5 mg IV Q4H PRN PRN PRN Reason: Breakthrough nausea/vomiting Promethazine HCl (Phenergan) 12.5 mg IV Q6H PRN PRN PRN Reason: Breakthrough nausea/vomiting Last Admin: 10/22/19 14:57 Dose: 12.5 mg Documented by: Promethazine HCl (Phenergan Tablet) 25 mg PO Q8H PRN PRN PRN Reason: NAUSEA Pyridostigmine [place] (Mestinon) 60 mg PO TID PRN PRN PRN Reason: MYASTHENIA GRAVIS Senna/Docusate Sodium (Senokot-S, Surekha-Colace) 2 tablet PO BID PRN PRN PRN Reason: Constipation Sodium Chloride () 10 - 40 ml IV UD PRN PRN Reason: SALINE FLUSH Last Admin: 10/22/19 18:11 Dose: 10 ml Documented by: Assessment/Plan All Active Problems (Last Reviewed 08/01/19 @ 12:44 by Dee Mukherjee) Foot ulcer, left (Acute) Left leg and foot cellulitis (Acute) 1. ESRD due to type 1 DM HD MWF. Dialysis today 2. Diabetic left foot ulcer iv antibx, leukocytosis improving. Bld cx pending 3. HTN stable 4. DM type 1 with neuropathy. primary care mgmt 5. PAD s/p LLE bypass 6. Former tobacco user. 7. anemia jake on dialysis
[2019-10-23] MEDS: Metoprolol Tartrate 100 MG Tablet PO (09:38)
[2019-10-23] MEDS: Clopidogrel Bisulfate 75 MG Tablet PO (09:38)
[2019-10-23] MEDS: Calcium Acetate 667 MG Capsule PO ×3 (09:38→16:57)
[2019-10-23] MEDS: Furosemide 80 MG Tablet PO ×2 (09:38→16:58)
[2019-10-23] MEDS: Pregabalin 75 MG Capsule PO (09:38)
[2019-10-23] MEDS: Aspirin 81 MG TAB.CHEW PO (09:38)
[2019-10-23] MEDS: 0.9% Saline Lock 10 ML Syringe IV ×2 (09:39→19:51)
[2019-10-23] MEDS: amLODIPine 10 MG Tablet PO (09:39)
[2019-10-23] MEDS: Famotidine 20 MG Tablet PO (09:39)
--- NOTE | 2019-10-23 10:56 | CASEMGMT ---
ERICH MAURICIO notified patient would like to transfer to [facility]. [facility] is in-network with patient's [facility].
--- NOTE | 2019-10-23 11:26 | DS.PCM_ITS ---
Discharge Date and Diagnosis - Problem List Patient Problems: Active and Suspected Problems (Last Reviewed 08/01/19 @ 12:44 by Dee Mukherjee) Foot ulcer, left (Acute) Left leg and foot cellulitis (Acute) Date of Admission: 10/22/19 Date of Discharge: 10/23/19 - Primary Discharge Diagnosis Acute Problems: Active Problems (Last Reviewed 08/01/19 @ 12:44 by Dee Mukherjee) Foot ulcer, left (Acute) Left leg and foot cellulitis (Acute) - Secondary Discharge Diagnosis Chronic Problems: Chronic Problems (Last Reviewed 08/01/19 @ 12:44 by Dee Mukherjee) Diabetic peripheral neuropathy (Chronic) Chronic renal failure, stage 4 (severe) (Chronic) Gastroparesis due to DM (Chronic) IBS (irritable bowel syndrome) (Chronic) HTN (hypertension) (Chronic) Diabetes type I (Chronic) Myasthenia gravis (Chronic) Hospital Course and Treatment Operations: None Summary of Care Provided: [] The patient is a 43 year old M with multiple comorbidities including type 1 diabetes mellitus and myasthenia gravis admitted directly from engineer remote [employer] office on the floor for left foot ulcer and contiguous cellulitis. [] 1. Left diabetic foot ulcer with surrounding cellulitis: Patient was admitted directly to [facility] floor. MRI of the foot was done which shows osteomyelitis of distal fourth, distal third and fifth metatarsal. A small ankle joint effusion with suspicion of septic arthritis. Suspicion of early osteomyelitis of the talus and calcaneum. Significant fluid surrounding the first metatarsal likely postsurgical. Patient was seen by engineer remote control diesel Dr. Hdz and offered ankle arthrocentesis to rule out septic arthritis but patient refused. With decreased vascular supply in left leg, there was no surety of healing of transmetatarsal amputation and patient understood it. He preferred left below-knee amputation. Initial Gram stain of wound of left foot shows staph aureus, most likely MSSA as MRSA nasal screen is negative. Antibiotic narrowed from Zosyn to Ancef. COVID-19 PCR is negative. As per patient wishes, I discussed her case summary with the bariatric program coordinator of [facility] and patient is excepted under care of . CRP and alkaline phosphatase elevated. A1c 6.3. Prealbumin low. 2. Type 1 diabetes mellitus, complicated with gastroparesis ESRD, diabetic nephropathy on hemodialysis, neuropathy and peripheral arterial disease: Consult supervisor nurse Dr. Vang. He is on dialysis Monday and Monday. Patient has insulin pump and monitor on the subcutaneous but has not brought refill. Accu-Chek before meals and at bedtime and cover with Humalog sliding scale. Need basal insulin. Glucose 167. A1c 6.3. Patient had endoscopy pyloroplasty. 2D echo was done found mildly dilated left ventricle, EF 50 to 55%. Trivial MR, trivial TR. Moderate size left pleural effusion noted on echo. 3. Peripheral arterial disease with left leg stent: Patient had OBDULIO done in podiatry office. On 09/16 ER visit, patient had OBDULIO which showed medial calcification of bilateral lower extremity vessels making OBDULIO inaccurate. Right DPA and MASSOTHERAPIST waveforms are monophasic consistent with severe disease. 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 Patient is on aspirin, Plavix and metoprolol 4. Possible COPD: Patient is on Symbicort inhaler at home. He does not know whether he had PFT. 6. Hypertension, irritable bowel syndrome and myasthenia gravis: Home medication reconciliation done. Patient is on Phenergan DVT prophylaxis: Heparin 5000 subcutaneous 3 times daily Patient is being transferred to [facility]. Dr. Hdz already spoke to Vascular surgeon Dr. Robles who knows the patient well and has perf ormed angiogram with stenting in August 2019. Plan for left below-knee amputation. Total time spent, exact 35 minutes on meds reconciliation, examination, coordination of care with nurses and ancillary staff, review of imaging and blood test and discussion with the patient on follow-up instructions Clinical Impression(s) from Imaging Studies Lower Extremity MRI 10/22/19 14:23 IMPRESSION: Cellulitis of soft tissues Previous amputation at the fourth metatarsophalangeal joint Edema, likely osteomyelitis distal fourth metatarsal, significant fluid surrounding the first metatarsal, likely postsurgical, and suspicious for abscess Findings suspicious for osteomyelitis distal aspect of the third and fifth metatarsals Small ankle joint effusion which could be reactive versus synovitis but cannot exclude septic arthritis Mild heterogeneous signal within the calcaneus and talus which could represent reactive marrow edema, versus early osteomyelitis Patient Problems: Active and Suspected Problems (Last Reviewed 08/01/19 @ 12:44 by Dee Mukherjee) Foot ulcer, left (Acute) Left leg and foot cellulitis (Acute) Objective: Seen and examined. No fever. No tachycardia. Findings of MRI discussed with the patient in presence of his mother. General: Alert, Oriented x3, Cooperative HEENT: Atraumatic, PERRLA, EOMI, Normocephalic Oral: No Gingival or Mucosal Lesions/ Ulcerations, Dry Mucosa Neck: Supple, No JVD, Negative Carotid Bruits Lungs: Clear to auscultation, No rhonchi, No wheeze, No rales, Air entry diminished bilaterally lung bases Cardiovascular: Regular rate, Regular Rhythm, Normal S1, Normal S2, Murmur - Pansystolic murmur present over left lower sternal border Abdomen: Bowel Sounds Present, Soft, Non Tender Extremities: Left leg edema has improved, Capillary Refill Less than 3 Seconds Skin: Ulcer in the heel. Left great toenail removed. Surrounding cellulitis of left foot and distal one third of left leg Musculoskeletal: Arthritic Changes, Muscle Wasting, Tenderness - Mild tenderness of left foot Neurological: Cranial nerves II-XII grossly intact Psych/Mental Status: Normal Affect, Appropriate - Physical Exam Vitals/I&O's: Vital Signs Temp Pulse Resp BP Pulse Ox 98.4 F 81 18 170/85 H 95 10/23/19 09:57 10/23/19 09:57 10/23/19 09:57 10/23/19 09:57 10/23/19 09:57 Oxygen Delivery Method Room Air Weight: 133 lb 6.075 oz Body Mass Index (BMI) 21.5 Finger Stick Blood Glucose 406 Intake and Output for Last 24 Hours 10/21/19 10/22/19 10/23/19 23:59 23:59 23:59 Intake Total 375 / 375 396 / 396 Output Total 2400 / 2400 Balance 375 / -2024 -2003 / Microbiology Past 72 Hours 10/22/19 19:50 Wound - Left Foot Gram Stain - Final Laboratory Results 10/22/19 14:40: WBC 21.0 H, RBC 3.22 L, Hgb 9.2 L, Hct 28.8 L, MCV 89.4, MCH 28.6, MCHC 31.9 L, RDW Std Deviation 48.7 H, RDW Coeff of Fidel 15.3 H, Plt Count 268, MPV 12.0, Immature Gran % (Auto) 1.600 H, Neut % (Auto) 86.4 H, Lymph % (Auto) 4.5 L, [place] % (Auto) 6.7, Eos % (Auto) 0.6, Baso % (Auto) 0.2, Absolute Neuts (auto) 18.1 H, Absolute Lymphs (auto) 0.95, Nucleated RBC % 0 10/22/19 14:40: Sodium 138, Potassium 3.9, Chloride 104, Carbon Dioxide 25.0, Anion Gap 9, BUN 43 H, Creatinine 3.96 H, Estim Creat Clear Calc 20.37, Est GFR (MDRD) Af Amer 21 L, Est GFR (MDRD) Non-Af 18 L, BUN/Creatinine Ratio 10.9, Glucose 87, Calcium 7.5 L, Phosphorus 6.2 H, Magnesium 2.1, Total Bilirubin 0.30, AST 27, ALT 44, Alkaline Phosphatase 461 H, C-React Prot Ext Range 103.00 H, Total Protein 6.6, Albumin 1.5 L, Globulin 5.1 H, Albumin/Globulin Ratio 0.3 L, Prealbumin 10.3 L 10/22/19 16:49: POC Glucose 144 H 10/22/19 19:50: S.aureus Protein A PCR POSITIVE H, MRSA (PCR) Negative 10/22/19 20:35: COVID-19 (TENZIN) Negative 10/22/19 21:13: POC Glucose 278 H 10/23/19 05:30: Sodium 133 L, Potassium 3.8, Chloride 100, Carbon Dioxide 27.0, Anion Gap 6, BUN 32 H, Creatinine 3.03 H, Estim Creat Clear Calc 26.62, Est GFR (MDRD) Af Amer 29 L, Est GFR (MDRD) Non-Af 24 L, BUN/Creatinine Ratio 10.6, Glucose 167 H, Calcium 7.3 L 10/23/19 05:30: WBC 14.8 H, RBC 2.86 L, Hgb 8.1 L, Hct 25.8 L, MCV 90.2, MCH 28.3, MCHC 31.4 L, RDW Std Deviation 49.1 H, RDW Coeff of Fidel 15.3 H, Plt Count 197, MPV 11.8, Immature Gran % (Auto) 1.100 H, Neut % (Auto) 85.7 H, Lymph % (Auto) 4.9 L, [place] % (Auto) 6.6, Eos % (Auto) 1.4, Baso % (Auto) 0.3, Absolute Neuts (auto) 12.7 H, Absolute Lymphs (auto) 0.72 L, Nucleated RBC % 0 10/23/19 05:30: PT 15.0 H, INR 1.2 10/23/19 05:30: Hemoglobin A1c 6.3 H 10/23/19 06:40: POC Glucose 169 H Current Medications Acetaminophen (Tylenol) 650 mg PO Q6H PRN PRN PRN Reason: Pain Score 1-10/Temp > 100.7 F Last Admin: 10/22/19 20:11 Dose: 650 mg Documented by: Al Hydroxide/Mg Hydroxide (Mylanta Ii) 30 ml PO Q6H PRN PRN PRN Reason: Gastric Burning Albuterol Sulfate (Ventolin Aerosols) 2.5 mg INHALATION Q2H PRN PRN PRN Reason: Shortness of Breath/Wheezing Last Admin: 10/23/19 07:14 Dose: 2.5 mg Documented by: Amitriptyline HCl (Elavil) 10 mg PO QHS [facility] Amlodipine Besylate (Norvasc) 10 mg PO DAILY [facility] Last Admin: 10/23/19 09:39 Dose: 10 mg Documented by: Aspirin (Aspirin, Baby) 81 mg PO DAILY@0800 [facility] Last Admin: 10/23/19 09:38 Dose: 81 mg Documented by: Budesonide (Pulmicort Aerosol) 0.5 mg INHALATION Q12H.RT [facility] Last Admin: 10/23/19 07:14 Dose: 0.5 mg Documented by: Calcium Acetate (Phoslo Gel Cap) 667 mg PO TIDCM [facility] Last Admin: 10/23/19 09:38 Dose: 667 mg Documented by: Clopidogrel Bisulfate (Plavix) 75 mg PO DAILY [facility] Last Admin: 10/23/19 09:38 Dose: 75 mg Documented by: Dextrose (D50w Syringe) 0 gm IV X1 PRN; Protocol PRN Reason: Hypoglycemia Famotidine (Pepcid) 20 mg PO BID [facility] Last Admin: 10/23/19 09:39 Dose: 20 mg Documented by: Furosemide (Lasix) 80 mg PO BIDLX [facility] Last Admin: 10/23/19 09:38 Dose: 80 mg Documented by: Glucagon () 1 mg IM .X1 PRN PRN Reason: Hypoglycemia Heparin Sodium (Porcine) (Heparin Na) 5,000 unit SC Q8 [facility] Last Admin: 10/23/19 06:43 Dose: 5,000 unit Documented by: Sodium Chloride () 250 mls @ 15 mls/hr IV .[id number] PRN PRN Reason: Saline Flush Last Infusion: 10/23/19 06:59 Dose: 0 mls/hr Documented by: Piperacillin Sod/Tazobactam (Sod 3.375 gm/ Sodium Chloride) 50 mls @ 12.5 mls/hr IV Q12 [facility] Last Admin: 10/23/19 09:53 Dose: 12.5 mls/hr Documented by: Insulin Human Lispro (Humalog Kwikpen (Bkc)) 0 unit SC ACHS [facility]; Protocol Last Admin: 10/23/19 06:43 Dose: 2 units Documented by: Levothyroxine Sodium (Synthroid) 50 mcg PO DAILY@0600 [facility] Last Admin: 10/23/19 06:43 Dose: 50 mcg Documented by: Metoprolol Tartrate (Lopressor (Beta Allen)) 100 mg PO BID [facility] Last Admin: 10/23/19 09:38 Dose: 100 mg Documented by: Montelukast Sodium (Singulair) 10 mg PO QHS [facility] Last Admin: 10/22/19 21:34 Dose: 10 mg Documented by: Morphine Sulfate () 2 mg IV Q3H PRN PRN PRN Reason: Pain Score 6-10/10 Last Admin: 10/23/19 09:39 Dose: 2 mg Documented by: Nitroglycerin (Nitrostat) 0.4 mg SUBLINGUAL Q5M PRN PRN Reason: CARDIAC/CHEST PAIN Nutritional Formula (Hi - [place] Flavor) [facility] Ondansetron HCl (Zofran Odt) 4 mg PO Q12H PRN PRN PRN Reason: NAUSEA Oxycodone HCl (Oxyir) 5 mg PO Q4H PRN PRN PRN Reason: Pain Score 4-5/10 Last Admin: 10/22/19 20:12 Dose: 5 mg Documented by: Pantoprazole Sodium (Protonix) 40 mg PO QHS [facility] Last Admin: 10/22/19 21:34 Dose: 40 mg Documented by: Polyethylene Glycol (Miralax) 17 gm PO DAILY [facility] Last Admin: 10/23/19 09:39 Dose: Not Given Documented by: Pregabalin (Lyrica) 75 mg PO BID [facility] Last Admin: 10/23/19 09:38 Dose: 75 mg Documented by: Prochlorperazine Edisylate (Compazine Iv) 5 mg IV Q4H PRN PRN PRN Reason: Breakthrough nausea/vomiting Promethazine HCl (Phenergan) 12.5 mg IV Q6H PRN PRN PRN Reason: Breakthrough nausea/vomiting Last Admin: 10/22/19 14:57 Dose: 12.5 mg Documented by: Promethazine HCl (Phenergan Tablet) 25 mg PO Q8H PRN PRN PRN Reason: NAUSEA Pyridostigmine [place] (Mestinon) 60 mg PO TID PRN PRN PRN Reason: MYASTHENIA GRAVIS Senna/Docusate Sodium (Senokot-S, Surekha-Colace) 2 tablet PO BID PRN PRN PRN Reason: Constipation Sodium Chloride () 10 - 40 ml IV UD PRN PRN Reason: SALINE FLUSH Last Admin: 10/23/19 09:39 Dose: 10 ml Documented by: Home Medications: Medications to take at Discharge Albuterol Inhaler [Ventolin Hfa] 2 puff INHALATION Q4H PRN PRN 08/19/14 Budesonide/Formoterol 160/4.5 [Symbicort 160/4.5 Mcg Inhaler (SP)] 2 puff INHALATION BID 02/23/16 Pyridostigmine [place] [Mestinon] 60 mg PO TID PRN PRN 12/03/16 Amlodipine [Norvasc] 10 mg PO DAILY 08/30/18 Levothyroxine [Synthroid] 50 mcg PO DAILY 08/30/18 Phenergan tablet 25 mg PO Q8H PRN PRN 08/30/18 amitriptyline 10 mg tablet 10 mg PO DAILY 03/12/19 furosemide 20 mg tablet 80 mg PO BID tab 03/12/19 metoprolol tartrate 50 mg tablet 100 mg PO BID tab 03/12/19 omeprazole 10 mg capsule,delayed release 40 mg PO QHS cap 03/12/19 Insulin Pump/Infus. Set/Meter 0 03/22/19 Montelukast Sodium [Singulair] 10 mg PO QHS 03/22/19 Ondansetron [Zofran Odt] 4 mg PO Q12H PRN PRN 03/22/19 Pregabalin [Lyrica] 75 mg PO BID 03/22/19 Aspirin 81 mg PO DAILY 10/22/19 Calcium Acetate [Phoslo Gel Cap] 667 mg PO TIDCM 10/22/19 Clopidogrel Bisulfate [Clopidogrel] 75 mg PO DAILY 10/22/19 Primary Care Physician: Jose Graham MD [Primary Care Provider] - Medical Necessity - Tobacco Use Smoking Status: Former smoker Tobacco Use: Cigarettes Meaningful Use Info Meaningful Use Diagnoses (Choose all that apply): None applicable Inpatient E&M: 48269 [facility]
[2019-10-23] MEDS: hydrALAZINE 50 MG Tablet PO (12:00)
[2019-10-23] MEDS: Acetaminophen 325 MG Tablet 650 MG PO (12:01)
[2019-10-23] MEDS: oxyCODONE 5 MG Tablet PO ×2 (12:01→17:06)
[2019-10-23 12:20] LABS: Bedside Glucose 163 mg/dL (70-110)
[2019-10-23 17:15] LABS: Bedside Glucose 191 mg/dL (70-110)
== END 2019-10-23 21:40 | disposition short-term general hospital (02) | DRG 539 ==
PROVIDERS: Admitting Provider Internal Medicine; PCP Family Medicine; Referring Provider Internal Medicine; Visit Provider Internal Medicine
DX: M86.172 Other acute osteomyelitis, left ankle and foot (principal); N18.6 End stage renal disease; L03.116 Cellulitis of left lower limb; I12.0 Hypertensive chronic kidney disease with stage 5 chronic kidney disease or end stage renal disease; E10.621 Type 1 diabetes mellitus with foot ulcer; L97.529 Non-pressure chronic ulcer of other part of left foot with unspecified severity; G70.00 Myasthenia gravis without (acute) exacerbation; Z79.4 Long term (current) use of insulin; E10.43 Type 1 diabetes mellitus with diabetic autonomic (poly)neuropathy; K31.84 Gastroparesis; K58.9 Irritable bowel syndrome, unspecified; Z87.891 Personal history of nicotine dependence; E10.22 Type 1 diabetes mellitus with diabetic chronic kidney disease; Z96.41 Presence of insulin pump (external) (internal); E10.51 Type 1 diabetes mellitus with diabetic peripheral angiopathy without gangrene; E10.628 Type 1 diabetes mellitus with other skin complications; Z79.02 Long term (current) use of antithrombotics/antiplatelets; Z79.51 Long term (current) use of inhaled steroids; Z79.82 Long term (current) use of aspirin; Z79.890 Hormone replacement therapy; Z82.49 Family history of ischemic heart disease and other diseases of the circulatory system; Z90.49 Acquired absence of other specified parts of digestive tract; Z99.2 Dependence on renal dialysis; M25.473 Effusion, unspecified ankle; D63.1 Anemia in chronic kidney disease
CPT/HCPCS: 36415; 73718; 80048; 80053; 82962; 83036; 83735; 84100; 84134; 85025; 85610; 86140; 87040; 87070; 87075; 87077; 87186; 87205; 87635; 87640; 90937; 93306; 94640; 94799; 97802; 99251; J7050; Q9957; A4216; G0257; G0463; U0003

== ENCOUNTER 2020-01-24 17:46 | Emergency (ER) | payer MEDICARE, MEDICAID, SELFPAY ==
[2019-10-22 13:20] VITALS: BMI 21.5
[2020-01-24 17:48] VITALS: BP 177/108; PULSE 76; RESP 18; TEMP 36.3; O2SAT 94
--- NOTE | 2020-01-24 18:11 | EKG12_ITS ---
Test Reason : SOB Blood Pressure : / mmHG Vent. Rate : 075 BPM Atrial Rate : 075 BPM P-R Int : 146 ms QRS Dur : 098 ms QT Int : 422 ms P-R-T Axes : 043 026 012 degrees QTc Int : 471 ms Normal sinus rhythm Possible Left atrial enlargement Cannot rule out Anterior infarct , age undetermined Abnormal ECG Confirmed by CARMEN PACHECO, MICHELLE ([id number]), editor producer BART GATES ([id number]) on 01/28/2020 11:15:55 AM Referred By: LIYAH Confirmed By:MICHELLE MORALES MD
--- NOTE | 2020-01-24 18:13 | RAD_ITS ---
STUDY: X-RAY CHEST REASON FOR EXAM: Male, 44 years old. Cough TECHNIQUE: Frontal view of the chest COMPARISON: 10/07/18 FINDINGS: There are moderate bilateral pleural effusions with overlying atelectasis. There are no focal infiltrates. The heart is normal in size. Again noted are sternotomy wires. The visualized osseous structures are within normal limits. RAD/Chest 1 View (Portable) IMPRESSION: Moderate bilateral pleural effusions with overlying atelectasis. Electronically Signed: Tez Vargas, at 19:30 EDT Tel , Service support ,
--- NOTE | 2020-01-24 18:15 | ED.VISSUMM ---
- ER Visit Summary Date of Service: 01/24/20 Chief Complaint: Shortness of breath History of Present Illness: The patient is a 44 M who presents with shortness of breath that began today. Patient states that he woke up this morning and was having some shortness of breath. Patient states he took his albuterol inhaler which helped. Patient states he went to dialysis and was having shortness of breath. Patient states he went through his dialysis which did not help his shortness of breath. Patient admits to a cough but denies any sputum. Patient admits to some rhinorrhea. Patient denies any fevers or chills. Patient admits to some tightness across his chest. Patient admits to nausea but denies any vomiting. Physical Examination: Vital signs are stable. Patient is afebrile. Patient is in no acute distress. Oral mucosa is pink and moist. Neck is supple. Trachea is midline. There is no JVD. Heart was regular rate and rhythm. Lungs showed rales in the bases bilaterally. There is good respiratory effort noted. Abdomen is soft. Bowel sounds are normal. There is some mild right upper quadrant tenderness. There is no rebound or guarding noted. Cranial nerves II through XII are intact. There are no focal motor or sensory deficits noted. Test Results: EKG shows normal sinus rhythm with a rate of 75. There are no acute ST or T wave changes. CBC was within normal limits. Comprehensive metabolic profile showed mild hypokalemia of 3.1. Alk phos was slightly elevated at 343. Troponin was less than 0.015. Portable chest x-ray was obtained. There are bilateral effusions but no acute infiltrate. Covid test was negative. Emergency Department Course and Treatment: Patient was given albuterol inhaler here. Patient is feeling better on reevaluation. Patient is not hypoxic. Patient's vital signs are normal. I feel patient is safe to be discharged home. Patient was advised to continue with his dialysis as scheduled. Patient was instructed to follow-up with his primary care physician in 5 to 7 days. Patient was instructed to take Tylenol as needed for any pain or fevers. Patient was instructed to continue his inhaler as prescribed. Patient understood and was agreeable with the plan. All questions were answered. Disposition: Discharge home Impression: Bilateral pleural effusions This note was generated with Epicrisisation software. It may contain incorrect words, spelling, and punctuation that were not noted in review of the chart prior to signing ED Disposition - Plan for ED Patient: Disposition: Home or Assisted Living Diagnosis: Bilateral pleural effusion Instructions: ED Effusion Pleural Referrals: Jose Graham MD [Primary Care Provider] - 5-7 Days
[2020-01-24 18:31] LABS: Absolute Lymphocyte Count 1.36 X10^3/uL (0.83-4.51); Absolute Neutrophil Count 6.9 X10^3/uL (2.0-7.7); Basophil# 0.06 X10^3/uL; Basophil% 0.6 % (0-1); Eosinophil# 0.22 X10^3/uL; Eosinophils% 2.3 % (0-5); Hematocrit 43.4 % (40-54); Hemoglobin 13.3 g/dL (13.0-16.5); Lymphocyte # 1.36 X10^3/ul (4.0); Lymphocyte % 14.2 % (19-41); Mean Corp Hgb Conc 30.6 g/dL (32-36); Mean Corpuscular Hgb 27.5 pg (27.0-32.0); Mean Corpuscular Volume 89.9 fL (80-94); Mean Platelet Vol. 13.3 fl (6.2-12.0); Monocyte% 10.5 % (0-10); NRBC Flagged by Analyzer 0 % (0-5); Neutrophil # 6.87 X10^3/uL (2.7-7.7); Neutrophil % 71.9 % (47-70); Platelet Count 171 K/mm3 (150-450); RBC Distribution Width CV 14.8 % (11.6-14.6); RBC Distribution Width SD 48.7 fl (35.1-43.9); Red Blood Count 4.83 M/mm3 (4.6-6.2); White Blood Count 9.6 K/mm3 (4.4-11.0)
[2020-01-24 18:44] LABS: ALB/GLOB Ratio 0.4 RATIO (0.9-2.4); AST(SGOT) 51 U/L (15-37); Alanine Aminotransfer ALT/SGPT 42 U/L (16-61); Alkaline Phosphatase 343 U/L (45-117); Anion Gap 7 (5-15); BUN 13 mg/dL (7-18); BUN/Creat Ratio 6.7 RATIO (10-20); Calcium,Total 7.6 mg/dL (8.5-10.1); Chloride 103 mmol/L (98-107); Creatinine, Serum 1.93 mg/dL (0.70-1.30); EST Glomerular Filtration Rate 40 mL/min (>60); Est Glom Filt Rate - Afr Amer 49 mL/min (>60); Estimated Creatinine Clearance 38.63 ml/min; Globulin 4.7 g/dL (2.2-4.2); Glucose 52 mg/dL (74-106); Potassium 3.1 mmol/L (3.5-5.1); Protein, Total 6.7 g/dL (6.4-8.2); Sodium Level 138 mmol/L (136-145)
[2020-01-24] MEDS: Acetaminophen 500 MG Tablet 1000 MG PO (18:45)
[2020-01-24 18:51] VITALS: PULSE 74; RESP 26
[2020-01-24 19:35] LABS: Lactic Acid 1.8 mmol/L (0.4-1.9)
[2020-01-24 19:45] LABS: Bedside Glucose 70 mg/dL (70-110)
[2020-01-24 21:21] VITALS: BP 170/106; PULSE 64; RESP 18; TEMP 35.9; O2SAT 94
[2020-01-24 21:25] LABS: Bedside Glucose 73 mg/dL (70-110)
[2020-01-24 22:28] VITALS: PULSE 73
== END 2020-01-24 22:28 | disposition home or self-care (01) ==
PROVIDERS: Emergency Provider Emergency Medicine; PCP Family Medicine
DX: J90 Pleural effusion, not elsewhere classified (principal); Z99.2 Dependence on renal dialysis; I12.0 Hypertensive chronic kidney disease with stage 5 chronic kidney disease or end stage renal disease; E11.22 Type 2 diabetes mellitus with diabetic chronic kidney disease; N18.6 End stage renal disease; E03.9 Hypothyroidism, unspecified; Z72.0 Tobacco use; Z90.49 Acquired absence of other specified parts of digestive tract
CPT/HCPCS: 36415; 71045; 80053; 82962; 83605; 84484; 85025; 87040; 87633; 87635; 93005; 94640; 99285; A4216; U0002

== ENCOUNTER 2020-02-14 16:59 | Emergency (ER) | payer MEDICARE, MEDICAID, SELFPAY ==
[2020-02-14 16:59] VITALS: BP 149/98; PULSE 65; RESP 12; TEMP 36.6; O2SAT 99; BMI 18.1
--- NOTE | 2020-02-14 17:15 | ED.VIS.GEN ---
History of Present Illness Chief Complaint: Hypoglycemia Informant: Patient Onset: Today Context: Gradual Onset Timing: Continuous Quality: shaky, weak/tired Location: all over Current Severity: - - gone Maximum Severity: Severe Worsened by: n/a Relieved by: getting IV D50 Narrative: Patient has had no illness recently. He was at dialysis today, he states his ride came earlier than he expected so he did not get to eat lunch, but he took his insulin today and he is a diabetic with the pump. His blood sugar got low and he was symptomatic with it, he completed most of his dialysis, he was given D50 and transported to the ER now he feels fine. - Past Medical History (1) Chronic renal failure, stage 4 (severe) Status: Chronic (2) Diabetes type I Status: Chronic (3) Diabetic peripheral neuropathy Status: Chronic (4) Gastroparesis due to DM Status: Chronic (5) HTN (hypertension) Status: Chronic (6) IBS (irritable bowel syndrome) Status: Chronic (7) Myasthenia gravis Status: Chronic Past Medical History - Allergies and Home Meds Allergies/Adverse Reactions: Allergies levofloxacin [From Levaquin] Allergy (Verified 01/24/20 17:52) Pain in joints lisinopril Allergy (Verified 01/24/20 17:52) Angioedema losartan Allergy (Verified 01/24/20 17:52) Angioedema metoclopramide HCl [From Reglan] Allergy (Verified 01/24/20 17:52) Hives Primary Care Physician: Jose Graham MD [Primary Care Provider] - As Needed Surgical History: - - Thymectomy, cholecystectomy, teeth resection. Smoking Status: Current every day smoker - Family History Maternal Family History: Family History (Last Reviewed 08/01/19 @ 12:44 by Dee Mukherjee) Father Cancer Hypertension Mother Thyroid disorder Family History: Reports: - Paternal Family History: Family History (Last Reviewed 08/01/19 @ 12:44 by Dee Mukherjee) Father Cancer Hypertension Mother Thyroid disorder Family History: Reports: Cancer, Hypertension, - Review of Systems General: Reports: Malaise. Denies: Chills, Fever, Sweats Eyes: Denies: Visual changes - bilaterally, Diplopia ENT: Denies: Rhinorrhea, Sore throat Cardiovascular: Denies: Chest pain, Palpitations Respiratory: Denies: Dyspnea, Cough, Dyspnea on exertion Gastrointestinal: Denies: Abdominal pain, Nausea, Vomiting, Diarrhea, Melena, Hematochezia Genitourinary: Denies: Dysuria, Hematuria, Frequency Musculoskeletal: Reports: Neck pain - Chronic per patient. Denies: Swelling Skin: Denies: Rash, Wounds Neurological: Denies: Headache, Weakness, Numbness Physical Exam Vital Signs/Narrative: Vital Signs Temp Pulse Resp BP Pulse Ox 02/14/20 16:59 98 F 65 12 149/98 H 99 Inital Vital Signs reviewed: Yes General: Well nourished, Well developed, No Acute Distress Head: Normocephalic, Atraumatic Eyes: Perrl, EOMI ENT: Moist mucous membranes, No rhinorrhea Neck: Supple, Nontender Cardiovascular: Regular rate, Regular rhythm, No murmurs Respiratory: No distress, CTA bilaterally, Chest nontender Abdomen: Soft, Nontender, Nondistended, Normal bowel sounds Back: Nontender, Normal Inspection Extremities: Nontender, No edema Skin: Normal color, No rash Neurological: Alert, Oriented x3 Psychological: Normal affect, Normal Mood Diagnostic/Tx/Re-eval - Medical Decision Making Patient put his pump on suspend, and we gave him a meal. We rechecked his blood sugar an hour after the last 1, it is 93 and he still feels fine. He is comfortable managing this at home now. ED Disposition - Plan for ED Patient: Diagnosis: Hypoglycemia associated with diabetes Instructions: ED HYPOGLYCEMIA Insulin Rxn Referrals: Jose Graham MD [Primary Care Provider] - As Needed
[2020-02-14] MEDS: Acetaminophen 325 MG Tablet 650 MG PO (17:37)
[2020-02-14 17:50] LABS: Bedside Glucose 93 mg/dL (70-110)
[2020-02-14 17:51] VITALS: BP 151/98; PULSE 67; RESP 16; O2SAT 99
--- NOTE | 2020-02-14 17:51 | ED.RN ---
IV DC'ED, CATHETER INTACT, SMALL GAUZE DRESSING PLACED. DISCHARGE INSTRUCTIONS GIVEN TO AND REVIEWED WITH PATIENT, PATIENT DENIES QUESTIONS OR CONCERNS AND VOICES UNDERSTANDING OF DISCHARGE INSTRUCTIONS.
--- NOTE | 2020-02-14 18:06 | ED.RN ---
PT TO PRIVATE VEHICLE VIA WHEELCHAIR.
[2020-02-17 07:21] LABS: Bedside Glucose 135 mg/dL (70-110)
== END 2020-02-14 18:07 | disposition home or self-care (01) ==
PROVIDERS: Emergency Provider Emergency Medicine; PCP Family Medicine
DX: E10.649 Type 1 diabetes mellitus with hypoglycemia without coma (principal); E10.22 Type 1 diabetes mellitus with diabetic chronic kidney disease; E10.42 Type 1 diabetes mellitus with diabetic polyneuropathy; E10.43 Type 1 diabetes mellitus with diabetic autonomic (poly)neuropathy; G70.00 Myasthenia gravis without (acute) exacerbation; I12.9 Hypertensive chronic kidney disease with stage 1 through stage 4 chronic kidney disease, or unspecified chronic kidney disease; N18.4 Chronic kidney disease, stage 4 (severe); K31.84 Gastroparesis; F17.200 Nicotine dependence, unspecified, uncomplicated; K58.9 Irritable bowel syndrome, unspecified; Z79.4 Long term (current) use of insulin; Z82.49 Family history of ischemic heart disease and other diseases of the circulatory system; Z88.1 Allergy status to other antibiotic agents; Z88.8 Allergy status to other drugs, medicaments and biological substances; Z90.49 Acquired absence of other specified parts of digestive tract; Z99.2 Dependence on renal dialysis
CPT/HCPCS: 82962; 99284; A4216

== ENCOUNTER 2020-02-15 18:34 | Emergency (ER) | payer MEDICARE, MEDICAID, SELFPAY ==
[2020-02-14 16:59] VITALS: BMI 18.1
[2020-02-15 18:36] VITALS: BP 129/89; PULSE 56; RESP 15; TEMP 36; O2SAT 98; BMI 19.6
--- NOTE | 2020-02-15 18:42 | ED.RN ---
CALLED FOR EKG AT 1840.
--- NOTE | 2020-02-15 18:56 | EKG12_ITS ---
Test Reason : CHEST TIGHTNESS Blood Pressure : / mmHG Vent. Rate : 060 BPM Atrial Rate : 060 BPM P-R Int : 146 ms QRS Dur : 100 ms QT Int : 460 ms P-R-T Axes : 055 014 085 degrees QTc Int : 460 ms Normal sinus rhythm Possible Left atrial enlargement Cannot rule out Anterior infarct (cited on or before 24-JAN-2020) Abnormal ECG Confirmed by CARMEN PACHECO, MICHELLE ([id number]), greeting card editor PRIETO GARZA ([id number]) on 02/19/2020 10:28:58 AM Referred By: STEFAN Confirmed By:MICHELLE MORALES MD
[2020-02-15 19:06] LABS: Bedside Glucose 107 mg/dL (70-110)
[2020-02-15 19:12] LABS: Absolute Lymphocyte Count 1.27 X10^3/uL (0.83-4.51); Absolute Neutrophil Count 4.5 X10^3/uL (2.0-7.7); Basophil# 0.05 X10^3/uL; Basophil% 0.8 % (0-1); Eosinophil# 0.09 X10^3/uL; Eosinophils% 1.4 % (0-5); Hematocrit 41.1 % (40-54); Hemoglobin 12.6 g/dL (13.0-16.5); Lymphocyte # 1.27 X10^3/ul (4.0); Lymphocyte % 19.7 % (19-41); Mean Corp Hgb Conc 30.7 g/dL (32-36); Monocyte# 0.47 X10^3/uL; Monocyte% 7.3 % (0-10); NRBC Flagged by Analyzer 0 % (0-5); Neutrophil # 4.53 X10^3/uL (2.7-7.7); Neutrophil % 70.3 % (47-70); Platelet Count 115 K/mm3 (150-450); RBC Distribution Width CV 15.8 % (11.6-14.6); RBC Distribution Width SD 50.4 fl (35.1-43.9); Red Blood Count 4.67 M/mm3 (4.6-6.2); White Blood Count 6.4 K/mm3 (4.4-11.0)
--- NOTE | 2020-02-15 19:15 | RAD_ITS ---
STUDY: X-RAY CHEST REASON FOR EXAM: Male, 44 years old. Chest pain. TECHNIQUE: 1 view COMPARISON: Prior chest radiograph of 01/24/2020 FINDINGS: Bilateral dependent pleural effusions may be modestly improved but are still substantial. Slightly less compressive atelectasis of the lower lobes. Upper lobes are clear. Normal cardiac size status post prior midline sternotomy. Normal mediastinum and nathaniel. Normal visualized pulmonary arteries. Normal visualized aortic arch and descending thoracic aorta. Normal visualized thoracic spine. Normal visualized ribs, clavicles, and shoulders. There is no demonstrated abnormality of the visualized soft tissue structures of the upper abdomen. RAD/Chest 1 View (Portable) IMPRESSION: Somewhat reduced but still with substantial bilateral dependent pleural effusions. Reduced bibasilar infiltrates and atelectasis. Upper lobes remain clear. Normal cardiac size status post prior midline sternotomy. Electronically Signed: Gabriella Kinney MD at 19:44 EST , Service support ,
[2020-02-15 19:32] LABS: Anion Gap 5 (5-15); BUN 22 mg/dL (7-18); Chloride 106 mmol/L (98-107); Creatinine, Serum 2.45 mg/dL (0.70-1.30); EST Glomerular Filtration Rate 31 mL/min (>60); Est Glom Filt Rate - Afr Amer 37 mL/min (>60); Estimated Creatinine Clearance 29.78 ml/min; Glucose 73 mg/dL (74-106); Potassium 3.6 mmol/L (3.5-5.1); Sodium Level 140 mmol/L (136-145)
--- NOTE | 2020-02-15 20:00 | ED.VISSUMM ---
- ER Visit Summary Date of Service: 02/15/20 Chief Complaint: Low blood sugar History of Present Illness: The patient is a [address] Graham, Dr. Vang, and Dr. Garcia. He has a longstanding history of diabetes and has an insulin pump. Reports that today he felt lightheaded as though he is going to pass out and confused. When EMS arrived his blood sugar was 36. They gave him oral glucose and his blood sugar improved to 51. He was then given a half after the D50 and his blood sugar increased to 107. Patient reports that he ate a much smaller lunch than usual. He reports that he has had chest pain that he describes as a tightness for the past 2 weeks that is constant. It waxes and wanes. 7 out of 10 currently 9 out of 10 at worst. It is increased with movement and decreased with rest. Physical Examination: Vitals: Stable. Afebrile. General: Well-nourished and well-developed. Head: Normocephalic atraumatic. Neck: Supple, no lymphadenopathy. No JVD. Nontender. Cardiovascular: Regular rate and rhythm. No murmurs. Respiratory: No respiratory distress. Clear to auscultation bilaterally. Abdominal: Soft, nontender, nondistended, normal bowel sounds. No guarding, rebound, or peritoneal signs. Back: Nontender. Extremities: Nontender, no edema. Left BKA. Skin: Normal color, no rash. Neurologic: Alert and oriented ?3. Cranial nerves II through XII are intact. Normal strength and sensation. Psych: Normal affect. Test Results: EKG is sinus at 60 with no acute changes. Is unchanged from last month. Troponin is negative. Chem-7 shows a glucose of 73, BUN 22, creatinine 2.45, and calcium of 7.0. CBC shows a hemoglobin of 12.6. Clinical Impression(s) from Imaging Studies Chest X-Ray 02/15/20 19:15 IMPRESSION: Somewhat reduced but still with substantial bilateral dependent pleural effusions. Reduced bibasilar infiltrates and atelectasis. Upper lobes remain clear. Normal cardiac size status post prior midline sternotomy. Electronically Signed: Gabriella Kinney MD at 19:44 EST , Service support , Emergency Department Course and Treatment: Patient was able to eat here without any difficulty. He turned off his insulin pump on arrival. Repeat blood sugar is 128. Treatment Plan: Patient is instructed that he needs to have fairly consistent meals with his insulin pump. He is instructed to check his blood sugar once an hour for the next 3 hours. If it is stabilized then check it every 2 hours overnight. Follow-up with his equipment oiler in 2 days for another exam. Return to the emergency department for any worsening symptoms. Disposition: To home in improved and stable condition. Impression: 1 1. Hypoglycemia. 2. Insulin-dependent diabetes mellitus with insulin pump. This note was generated with [employer] software. It may contain incorrect words, spelling, and punctuation that were not noted in review of the chart prior to signing ED Disposition - Plan for ED Patient: Instructions: ED HYPOGLYCEMIA Insulin Rxn Referrals: Jose Graham MD [Primary Care Provider] - 1-2 Days if not improving Additional Instructions: Follow-up with your equipment oiler as soon as possible for modification of your insulin pump.
[2020-02-15 20:16] LABS: Bedside Glucose 128 mg/dL (70-110)
[2020-02-15 20:24] VITALS: BP 141/93; PULSE 65; RESP 19; O2SAT 97
== END 2020-02-15 20:24 | disposition home or self-care (01) ==
LOC: ED 18:48
PROVIDERS: Emergency Provider Emergency Medicine; PCP Family Medicine
DX: E11.649 Type 2 diabetes mellitus with hypoglycemia without coma (principal); Z79.4 Long term (current) use of insulin; Z96.41 Presence of insulin pump (external) (internal); J90 Pleural effusion, not elsewhere classified; Z89.512 Acquired absence of left leg below knee
CPT/HCPCS: 71045; 80048; 82962; 84484; 85025; 93005; 99285; J7030; A4216

== ENCOUNTER 2020-02-18 10:09 | Emergency (ER) | payer MEDICARE, MEDICAID, SELFPAY ==
[2020-02-18 10:10] VITALS: BP 129/94; PULSE 58; RESP 14; TEMP 36.9; O2SAT 94; BMI 18.5
[2020-02-18 10:18] VITALS: BP 129/94; PULSE 58; RESP 14; TEMP 36.9; O2SAT 94; BMI 18.5
[2020-02-18] MEDS: Dextrose 50%-Water 25 GM/50 ML DISP.SYRIN IV ×2 (10:23→12:11)
[2020-02-18 10:46] LABS: Bedside Glucose 138 mg/dL (70-110)
[2020-02-18 10:46] LABS: Bedside Glucose 47 mg/dL (70-110)
[2020-02-18 11:18] LABS: Absolute Lymphocyte Count 1.09 X10^3/uL (0.83-4.51); Absolute Neutrophil Count 3.9 X10^3/uL (2.0-7.7); Basophil# 0.05 X10^3/uL; Basophil% 0.9 % (0-1); Eosinophil# 0.06 X10^3/uL; Eosinophils% 1.1 % (0-5); Hematocrit 39.2 % (40-54); Hemoglobin 11.6 g/dL (13.0-16.5); Lymphocyte # 1.09 X10^3/ul (4.0); Lymphocyte % 19.4 % (19-41); Mean Corp Hgb Conc 29.6 g/dL (32-36); Mean Corpuscular Hgb 26.4 pg (27.0-32.0); Mean Corpuscular Volume 89.1 fL (80-94); Monocyte# 0.52 X10^3/uL; Monocyte% 9.3 % (0-10); NRBC Flagged by Analyzer 0 % (0-5); Neutrophil # 3.88 X10^3/uL (2.7-7.7); Neutrophil % 68.9 % (47-70); Platelet Count 105 K/mm3 (150-450); RBC Distribution Width CV 16.6 % (11.6-14.6); RBC Distribution Width SD 53.6 fl (35.1-43.9); White Blood Count 5.6 K/mm3 (4.4-11.0)
--- NOTE | 2020-02-18 11:21 | ED.VIS.GEN ---
History of Present Illness Chief Complaint: Hypoglycemia Informant: Patient Onset: Today Maximum Severity: Mild Narrative: The patient presents with a blood sugar of 22 at home he was given some liquid foods presents with a similar blood sugar here in the ED and given D50 Patient has history of insulin-dependent diabetes mellitus, insulin pump, he indicates has had labile blood sugars recently with use of insulin pump he is not sure he is managing the pump correctly, he basically indicates he went to bed with a blood sugar of 230 woke with a blood sugar of 50 and later his blood sugar fell to the low level he was unresponsive his family took his blood sugar recorded to be around 22 he was given something to wake him up and he presents again with a blood sugar of 22 we have turned off his insulin pump He indicates he basically does not usually check his blood sugars, as it is difficult for him to do so, he has chronic abdominal pain related to gastroparesis, he has poor p.o. intake chronically, does believe he ate normal amounts of food yesterday. Indicates he is on a normal diet he does not stick to a diabetic diet, indicates his blood sugars usually run in the 100s His abdominal pain is chronic and has been evaluated, he said no fever no cough normal bowel bladder habits, he has end-stage renal disease left arm fistula was dialyzed yesterday without difficulty He sees live in housekeeper at the [facility] the [facility] facility who help manage his blood sugars and manage his insulin pump Past Medical History - Allergies and Home Meds Allergies/Adverse Reactions: Allergies levofloxacin [From Levaquin] Allergy (Verified 02/15/20 18:34) Pain in joints lisinopril Allergy (Verified 02/15/20 18:34) Angioedema losartan Allergy (Verified 02/15/20 18:34) Angioedema metoclopramide HCl [From Reglan] Allergy (Verified 02/15/20 18:34) Hives Primary Care Physician: Jose Graham MD [Primary Care Provider] - Past Medical History: - Surgical History: - - Thymectomy, cholecystectomy, teeth resection. Smoking Status: Current every day smoker - Family History Maternal Family History: Family History (Last Reviewed 08/01/19 @ 12:44 by Dee Mukherjee) Father Cancer Hypertension Mother Thyroid disorder Family History: Reports: - Paternal Family History: Family History (Last Reviewed 08/01/19 @ 12:44 by Dee Mukherjee) Father Cancer Hypertension Mother Thyroid disorder Family History: Reports: Cancer, Hypertension, - Review of Systems ROS: - Diabetes mellitus insulin pump gastroparesis General: Denies: Chills, Fever, Sweats Eyes: Denies: Visual changes - bilaterally, Diplopia ENT: Denies: Rhinorrhea, Sore throat Cardiovascular: Denies: Chest pain, Palpitations Respiratory: Denies: Dyspnea, Cough, Dyspnea on exertion Gastrointestinal: Reports: Abdominal pain. Denies: Nausea, Vomiting, Diarrhea, Melena, Hematochezia Genitourinary: Denies: Dysuria, Hematuria, Frequency Musculoskeletal: Denies: Back pain, Extremity Pain Skin: Denies: Rash, Wounds Neurological: Denies: Headache, Weakness, Numbness Physical Exam Vital Signs/Narrative: Vital Signs Temp Pulse Resp BP Pulse Ox 02/18/20 10:18 98.5 F 58 L 14 129/94 H 94 02/18/20 10:10 98.5 F 58 L 14 129/94 H 94 General: Well nourished, Well developed, No Acute Distress Head: Normocephalic, Atraumatic Eyes: Perrl, EOMI ENT: Moist mucous membranes, No rhinorrhea Neck: Supple, Nontender Cardiovascular: Regular rate, Regular rhythm, No murmurs Respiratory: No distress, CTA bilaterally, Chest nontender Abdomen: Soft, Nondistended, Normal bowel sounds, Tender. Negative for: Guarding, Rebound tenderness Back: Nontender, Normal Inspection Extremities: Nontender, No edema Skin: Normal color, No rash Neurological: Alert, Oriented x3, Cranial nerves II-XII grossly intact, Normal Strength, Normal Sensation Psychological: Normal affect, Normal Mood Diagnostic/Tx/Re-eval - Medical Decision Making He has a nonspecific abdominal tenderness that is chronic for himself he actually states he feels hungry now he would like to eat we will obtain screening labs, we spoke with his hemodynamically wound clinic providers endocrinology related to all of the above they have asked that he basically contact the pump company to help him understand how to manage it to stick to his normal diets and he has an appointment to see them tomorrow at 11 AM to go under the evaluation he is again wanting to eat screening labs are obtained reassess him At this time the patient screening labs are generally unremarkable, he is been observed he is eating and he is feeling better he wants to go home we discussed again his insulin pump issues with his providers at [facility] with the patient The patient has an appointment to see his providers tomorrow he will contact the insulin pump management team when he leaves today, he will not turn the insulin pump on until he is seen by his providers, he will check his blood sugars and take sliding scale insulin that he has at home if his blood sugars are more than 300 he will return for change in symptoms, To coordinate all the above again we spoke with his providers at [facility], we spoke with the patient's mother who will be staying with him to help coordinate his care and make sure he keeps all his appointments And the patient is feeling back to baseline he wants to go home to follow-up with his outpatient providers and feels this is appropriate plan Home stable declined admission Final impression insulin-dependent diabetes mellitus, possible malfunction or mall use of insulin pump ED Disposition - Plan for ED Patient: Diagnosis: Diabetes type I, Chronic renal failure, stage 4 (severe) Instructions: ED END STAGE RENAL DISEASE, ED HYPOGLYCEMIA Insulin Rxn Referrals: Jose Graham MD [Primary Care Provider] - Additional Instructions: Do not turn on your insulin pump until you follow-up with your providers, Take your insulin via your home supply if your blood sugar is more than 300 using sliding scale you have used in the past, return for change in symptoms
[2020-02-18 11:52] LABS: AST(SGOT) 47 U/L (15-37); Alanine Aminotransfer ALT/SGPT 132 U/L (16-61); Albumin, Serum 1.6 g/dL (3.2-5.0); Alkaline Phosphatase 677 U/L (45-117); Anion Gap 4 (5-15); BUN 20 mg/dL (7-18); BUN/Creat Ratio 7.4 RATIO (10-20); Bilirubin, Direct 0.07 mg/dL (0.00-0.30); Calcium,Total 6.6 mg/dL (8.5-10.1); Chloride 113 mmol/L (98-107); Creatinine, Serum 2.69 mg/dL (0.70-1.30); EST Glomerular Filtration Rate 27 mL/min (>60); Est Glom Filt Rate - Afr Amer 33 mL/min (>60); Estimated Creatinine Clearance 25.51 ml/min; Globulin 3.9 g/dL (2.2-4.2); Glucose 93 mg/dL (74-106); Lipase < 10 U/L (73-393); Potassium 3.5 mmol/L (3.5-5.1); Protein, Total 5.5 g/dL (6.4-8.2); Sodium Level 144 mmol/L (136-145)
[2020-02-18 12:00] LABS: Bedside Glucose 56 mg/dL (70-110)
--- NOTE | 2020-02-18 12:03 | ED.RN ---
talked with his mother and informed her of his appt for tomorrow as well
[2020-02-18 12:19] VITALS: BP 139/84; PULSE 76; RESP 15; O2SAT 98
[2020-02-18 12:45] LABS: Bedside Glucose 180 mg/dL (70-110)
[2020-02-18 13:44] VITALS: BP 126/86
== END 2020-02-18 13:46 | disposition home or self-care (01) ==
LOC: ED 11:46
PROVIDERS: Emergency Provider Emergency Medicine; PCP Family Medicine
DX: E10.22 Type 1 diabetes mellitus with diabetic chronic kidney disease (principal); N18.4 Chronic kidney disease, stage 4 (severe); E10.649 Type 1 diabetes mellitus with hypoglycemia without coma; F17.200 Nicotine dependence, unspecified, uncomplicated; Z79.4 Long term (current) use of insulin; Z82.49 Family history of ischemic heart disease and other diseases of the circulatory system; Z88.1 Allergy status to other antibiotic agents; Z88.8 Allergy status to other drugs, medicaments and biological substances; Z90.49 Acquired absence of other specified parts of digestive tract; R10.9 Unspecified abdominal pain; G89.29 Other chronic pain
CPT/HCPCS: 80048; 80076; 82962; 83690; 85025; 99285; A4216

== ENCOUNTER 2020-02-22 09:05 | Inpatient (IN) | payer MEDICARE, MEDICAID, SELFPAY ==
[2020-02-22] VITALS (28 sets, daily range): BP systolic 83–134; BP diastolic 41–98; PULSE 45–66; RESP 14–20; TEMP 34.6–37.2; O2SAT 88–100; BMI 18.6; BMI 17.1
[2020-02-22 09:15] LABS: Bedside Glucose 69 mg/dL (70-110)
[2020-02-22 09:33] LABS: Absolute Lymphocyte Count 0.98 X10^3/uL (0.83-4.51); Basophil# 0.02 X10^3/uL; Basophil% 0.2 % (0-1); Eosinophil# 0.03 X10^3/uL; Eosinophils% 0.3 % (0-5); Hematocrit 39.4 % (40-54); Hemoglobin 12.5 g/dL (13.0-16.5); Lymphocyte # 0.98 X10^3/ul (4.0); Lymphocyte % 10.2 % (19-41); Mean Corp Hgb Conc 31.7 g/dL (32-36); Mean Corpuscular Hgb 27.2 pg (27.0-32.0); Mean Corpuscular Volume 85.7 fL (80-94); Mean Platelet Vol. 14.2 fl (6.2-12.0); Monocyte# 0.62 X10^3/uL; Monocyte% 6.4 % (0-10); NRBC Flagged by Analyzer 0.2 % (0-5); Neutrophil # 7.95 X10^3/uL (2.7-7.7); Neutrophil % 82.4 % (47-70); POSITIVE MORPHOLOGY YES; Platelet Count 127 K/mm3 (150-450); RBC Distribution Width SD 52.1 fl (35.1-43.9); White Blood Count 9.7 K/mm3 (4.4-11.0)
[2020-02-22 09:35] LABS: Differential Indicated SCAN CRITERIA MET
--- NOTE | 2020-02-22 09:59 | ED.DCSUM_ITS ---
- ER Visit Summary Date of Service: 02/22/20 Chief Complaint: Hypoglycemia History of Present Illness: The patient is a 44 M who presents with a hypoglycemic episode that occurred this morning. Patient called EMS because his insulin pump was alarming. EMS checked the patient's blood sugar and it was 41. Patient did state that he ate breakfast this morning. Patient states he feels weak. Patient denies any nausea or vomiting. Patient is on dialysis and has minimal urination. Patient denies any chest pain or shortness of breath. Patient denies any fevers. Physical Examination: Vital signs are stable except for a pulse ox of 89% on room air. Patient is afebrile. Patient is in no acute distress. Cranial nerves II through XII are grossly intact. There are no focal motor or sensory deficits noted. Neck is supple. Trachea is midline. There is no JVD. Heart was regular rate and rhythm. Lungs are clear and equal bilaterally. Abdomen is soft. Bowel sounds are normal. There is no tenderness. Extremities are intact. There is no calf tenderness or edema. Test Results: Initial BGT was 69. Glucose on metabolic profile was 29. Alk phos was slightly elevated at 561 and ALT was slightly elevated at 82. Creatinine was 2.98 which is consistent with prior results. BUN was 20. CBC showed a mild anemia with a hemoglobin of 12.5 and hematocrit 39.4. One-view portable chest x-ray was obtained. On my interpretation, there are increasing p leural effusions and bilateral infiltrates. There is no pneumothorax. Bony thorax is normal. Radiologist also interpreted the x-ray and agrees. Rapid antigen COVID-19 test was ordered and was negative. Lactate was added on and is pending. Emergency Department Course and Treatment: Patient was given 1 amp of D50. Patient was also given a regular diet tray. Patient's insulin pump was discontinued. Patient's blood sugar improved to 210 but then decreased to 59. Patient was given a repeat dose of D50. Patient was placed on 2 L of oxygen by nasal cannula. Patient's pulse oximeter remained around 92% on 2 L of nasal cannula. Patient was started on Rocephin and Zithromax. Case was discussed with the hospitalist. She will admit the patient to her service. Patient understood and was agreeable with the plan. All questions were answered. Disposition: Admit to hospital Impression: 1. Pneumonia 2. Hypoxia 3. Hypoglycemia This note was generated with [employer] dictation software. It may contain incorrect words, spelling, and punctuation that were not noted in review of the chart prior to signing ED Disposition - Plan for ED Patient: Disposition: Acute Care Hospital [facility] Diagnosis: Pneumonia, Hypoxia, Hypoglycemia Referrals: Jose Graham MD [Primary Care Provider] -
[2020-02-22 10:02] LABS: ALB/GLOB Ratio 0.4 RATIO (0.9-2.4); AST(SGOT) 33 U/L (15-37); Alanine Aminotransfer ALT/SGPT 82 U/L (16-61); Albumin, Serum 1.7 g/dL (3.2-5.0); Alkaline Phosphatase 561 U/L (45-117); Anion Gap 3 (5-15); BUN 20 mg/dL (7-18); BUN/Creat Ratio 6.7 RATIO (10-20); Calcium,Total 7.2 mg/dL (8.5-10.1); Chloride 107 mmol/L (98-107); Creatinine, Serum 2.98 mg/dL (0.70-1.30); EST Glomerular Filtration Rate 24 mL/min (>60); Est Glom Filt Rate - Afr Amer 29 mL/min (>60); Estimated Creatinine Clearance 23.25 ml/min; Globulin 4.3 g/dL (2.2-4.2); Glucose 29 mg/dL (74-106); Potassium 4.5 mmol/L (3.5-5.1); Sodium Level 138 mmol/L (136-145)
[2020-02-22] MEDS: Dextrose 50%-Water 25 GM/50 ML DISP.SYRIN IV ×3 (10:03→14:47)
[2020-02-22 10:14] LABS: Platelet Estimate SLT DEC (ADEQ); Platelet Morphology LARGE
[2020-02-22 10:26] LABS: Bedside Glucose 210 mg/dL (70-110)
[2020-02-22 11:11] LABS: Bedside Glucose 53 mg/dL (70-110)
--- NOTE | 2020-02-22 11:36 | RAD_ITS ---
STUDY: X-RAY CHEST REASON FOR EXAM: Male, 44 years old. Patient unresponsive. Possible COVID. TECHNIQUE: Single frontal view of the chest. COMPARISON: 02/15/2020 FINDINGS: Diffuse pulmonary opacities, left slightly greater than right, which are new since the prior study. Increase in bilateral pleural effusions. Cardiomegaly with sternotomy wires unchanged. Normal mediastinum and nathaniel. Normal visualized pulmonary arteries. Normal visualized aortic arch and descending thoracic aorta. Normal visualized thoracic spine. Normal visualized ribs, clavicles, and shoulders. There is no demonstrated abnormality of the visualized soft tissue structures of the upper abdomen. RAD/Chest 1 View (Portable) IMPRESSION: Marked progression of pulmonary opacities and increasing pleural effusions since the prior study. Findings are compatible with extensive pneumonia. Electronically Signed: Riley Diaz MD at 12:19 EST , Service support ,
[2020-02-22 11:56] LABS: Bedside Glucose 108 mg/dL (70-110)
[2020-02-22] MEDS: Ceftriaxone 1 GM/50 ML BAG IV (12:41)
--- NOTE | 2020-02-22 12:42 | HP.PCM_ITS ---
History of Present Illness The patient is a 44 year old M [] Past Medical History Past Medical History (Chronic Problems): Chronic Problems (Last Reviewed 08/01/19 @ 12:44 by Dee Mukherjee) Diabetic peripheral neuropathy (Chronic) Chronic renal failure, stage 4 (severe) (Chronic) Gastroparesis due to DM (Chronic) IBS (irritable bowel syndrome) (Chronic) HTN (hypertension) (Chronic) Diabetes type I (Chronic) Myasthenia gravis (Chronic) Medical History: Medical History (Last Reviewed 08/01/19 @ 12:44 by Dee Mukherjee) Chronic renal failure, stage 4 (severe) (Chronic) N18.4 Gastroparesis due to DM (Chronic) E11.43, K31.84 Cellulitis of right leg (Inactive) L03.115 IBS (irritable bowel syndrome) (Chronic) HTN (hypertension) (Chronic) I10 Diabetes type I (Chronic) Myasthenia gravis (Chronic) G70.00 Allergies levofloxacin [From Levaquin] Allergy (Verified 02/22/20 09:13) Pain in joints lisinopril Allergy (Verified 02/22/20 09:13) Angioedema losartan Allergy (Verified 02/22/20 09:13) Angioedema metoclopramide HCl [From Reglan] Allergy (Verified 02/22/20 09:13) Hives Home Medications: Ambulatory Orders Medication Instructions Recorded Amitriptyline HCl 2 tab PO QHS 02/14/20 Amlodipine Besylate [Norvasc] 10 mg PO QHS 02/14/20 Aspirin [Aspirin, Baby] 81 mg PO DAILY@0800 02/14/20 Calcium Acetate 1 cap PO TIDCM 02/14/20 Cholestyramine (with Sugar) 4 gm PO BID 02/14/20 [Questran Packet] Clopidogrel Bisulfate [Plavix] 75 mg PO DAILY 02/14/20 Furosemide [Lasix] 2 tab PO BID 02/14/20 Humalog 02/14/20 Levothyroxine [Synthroid] 50 mcg PO DAILY 02/14/20 Metoprolol Tartrate [Lopressor] 200 mg PO BID 02/14/20 Montelukast Sodium [Singulair] 10 mg PO QHS 02/14/20 Pregabalin [Lyrica] 75 mg PO BID 02/14/20 Venlafaxine XR [Effexor Xr] 150 mg PO DAILY 02/14/20 Bupropion HCl [Wellbutrin Xl] 150 mg PO BID 02/22/20 Cyclobenzaprine HCl 5 mg PO TID PRN 02/22/20 Folic Acid/Vit B Complex and C 0.8 mg PO DAILY 02/22/20 [Renal-Alessandro Tablet] Insulin Glargine [Lantus (BKC)] units SC DAILY PRN PRN 02/22/20 Pantoprazole Sodium [Protonix] 40 mg PO DAILY 02/22/20 Pyridostigmine [place] [Mestinon] 60 mg PO DAILY 02/22/20 Triphrocaps 1 mg PO DAILY 02/22/20 Surgical History: Surgical History (Last Reviewed 08/01/19 @ 12:44 by Dee Mukherjee) S/P thymectomy Z90.89 Status post creation of arteriovenous fistula Onset Date: ~04/2019 Z98.890 Status post laparoscopic cholecystectomy Z90.49 Surgical History: - - Thymectomy, cholecystectomy, teeth resection. Psychiatric History: No pertinent psych hx Smoking Status: Current every day smoker - *Family History Maternal Family History: Family History (Last Reviewed 08/01/19 @ 12:44 by Dee Mukherjee) Father Cancer Hypertension Mother Thyroid disorder History Items: - Paternal Family History: Family History (Last Reviewed 08/01/19 @ 12:44 by Dee Mukherjee) Father Cancer Hypertension Mother Thyroid disorder History Items: Cancer, Hypertension, - - Physical Exam Vitals/I&O's: Vital Signs Temp Pulse Resp BP Pulse Ox 97.6 F L 58 L 16 111/84 H 92 02/22/20 09:05 02/22/20 11:50 02/22/20 11:50 02/22/20 11:50 02/22/20 11:50 Oxygen Flow Rate (L/min) 2 Oxygen Delivery Method Nasal Cannula Weight: 52.5 kg Body Mass Index (BMI) 18.6 Finger Stick Blood Glucose 108 Microbiology Past 72 Hours 02/22/20 11:50 Mucosa - Nose SARS-CoV-2 Antigen (Rapid) - Final Laboratory Results 02/22/20 09:09: POC Glucose 69 L 02/22/20 09:10: WBC 9.7, RBC 4.60, Hgb 12.5 L, Hct 39.4 L, MCV 85.7, MCH 27.2, MCHC 31.7 L D, RDW Std Deviation 52.1 H, RDW Coeff of Fidel 17.0 H, Plt Count 127 L, MPV 14.2 H, Immature Gran % (Auto) 0.500, Neut % (Auto) 82.4 H, Lymph % (Auto) 10.2 L, [place] % (Auto) 6.4, Eos % (Auto) 0.3, Baso % (Auto) 0.2, Absolute Neuts (auto) 8.0 H, Absolute Lymphs (auto) 0.98, Nucleated RBC % 0.2, Platelet Estimate SLT DEC, Plt Morphology Comment LARGE 02/22/20 09:10: Sodium 138, Potassium 4.5, Chloride 107, Carbon Dioxide 28.0, Anion Gap 3 L, BUN 20 H, Creatinine 2.98 H, Estim Creat Clear Calc 23.25, Est GFR (MDRD) Af Amer 29 L, Est GFR (MDRD) Non-Af 24 L, BUN/Creatinine Ratio 6.7 L, Glucose 29 L*, Calcium 7.2 L, Total Bilirubin 0.30, AST 33, ALT 82 H, Alkaline Phosphatase 561 H, Total Protein 6.0 L, Albumin 1.7 L, Globulin 4.3 H, Albumin/Globulin Ratio 0.4 L 02/22/20 10:18: POC Glucose 210 H 02/22/20 10:54: POC Glucose 53 L 02/22/20 11:48: POC Glucose 108 Current Medications Azithromycin 500 mg/ Dextrose 255 mls @ 250 mls/hr IV X1 ONE Stop: 02/22/20 13:27 Ceftriaxone Sodium (Rocephin) 1 gm in 50 mls @ 100 mls/hr IV X1 ONE Stop: 02/22/20 12:55 Last Admin: 02/22/20 12:41 Dose: 100 mls/hr Documented by: Assessment/Plan All Active Problems (Last Reviewed 08/01/19 @ 12:44 by Dee Mukherjee) Foot ulcer, left (Acute) Left leg and foot cellulitis (Acute)
[2020-02-22 12:51] LABS: Bedside Glucose 205 mg/dL (70-110)
--- NOTE | 2020-02-22 13:07 | NURSING ---
med surg paintsil pheumonia, hypoxia, hypoglycemia
--- NOTE | 2020-02-22 13:43 | HP.PCM_ITS ---
<Chuckie Schmidt - Last Filed: 02/22/20 14:02> Problem List (1) Pneumonia Status: Acute (2) Hypoglycemia Status: Acute (3) ESRD (end stage renal disease) Status: Chronic (4) IBS (irritable bowel syndrome) Status: Chronic Qualifiers: Irritable bowel syndrome type: unspecified Qualified Code(s): K58.9 - Irritable bowel syndrome without diarrhea (5) HTN (hypertension) Status: Chronic Qualifiers: Hypertension type: essential hypertension Qualified Code(s): I10 - Essential (primary) hypertension (6) Diabetes type I Status: Chronic Qualifiers: Diabetes mellitus complication status: with unspecified complications (7) Myasthenia gravis Status: Chronic (8) PAD (peripheral artery disease) Status: Chronic History of Present Illness Date of Admission: 02/22/20 Chief Complaint: SOB The patient is a 44 year old M with past medical history of type 1 diabetes, COPD-emphysema, myasthenia gravis, end-stage renal disease patient of Dr. Vang on dialysis Monday, PAD status post left BKA, nicotine abuse, who presents to the ER with c/o SOB. This patient has been feeling unwell for 5-6 days with generalized achiness. About 2 days ago he has been progressively more SOB. He has a nonproductive cough. He denies fever/chills. He denies sick contacts. He was brought to the ER and was mildly hypoxic at 89% and with hypoglycemia. His insulin pump was removed and he was given D50. He remains lethargic and groggy. He is a lifelong smoker 1 ppd. [] Past Medical History Past Medical History (Chronic Problems): Chronic Problems (Last Reviewed 08/01/19 @ 12:44 by Dee Mukherjee) Diabetic peripheral neuropathy (Chronic) ESRD (end stage renal disease) (Chronic) PAD (peripheral artery disease) (Chronic) Chronic renal failure, stage 4 (severe) (Chronic) Gastroparesis due to DM (Chronic) IBS (irritable bowel syndrome) (Chronic) HTN (hypertension) (Chronic) Diabetes type I (Chronic) Myasthenia gravis (Chronic) Medical History: Medical History (Last Reviewed 08/01/19 @ 12:44 by Dee Mukherjee) Chronic renal failure, stage 4 (severe) (Chronic) N18.4 Gastroparesis due to DM (Chronic) E11.43, K31.84 Cellulitis of right leg (Inactive) L03.115 IBS (irritable bowel syndrome) (Chronic) HTN (hypertension) (Chronic) I10 Diabetes type I (Chronic) Myasthenia gravis (Chronic) G70.00 Allergies levofloxacin [From Levaquin] Allergy (Verified 02/22/20 09:13) Pain in joints lisinopril Allergy (Verified 02/22/20 09:13) Angioedema losartan Allergy (Verified 02/22/20 09:13) Angioedema metoclopramide HCl [From Reglan] Allergy (Verified 02/22/20 09:13) Hives Home Medications: Ambulatory Orders Medication Instructions Recorded Amitriptyline HCl 2 tab PO QHS 02/14/20 Amlodipine Besylate [Norvasc] 10 mg PO QHS 02/14/20 Aspirin [Aspirin, Baby] 81 mg PO DAILY@0800 02/14/20 Calcium Acetate 1 cap PO TIDCM 02/14/20 Cholestyramine (with Sugar) 4 gm PO BID 02/14/20 [Questran Packet] Clopidogrel Bisulfate [Plavix] 75 mg PO DAILY 02/14/20 Furosemide [Lasix] 2 tab PO BID 02/14/20 Humalog 02/14/20 Levothyroxine [Synthroid] 50 mcg PO DAILY 02/14/20 Metoprolol Tartrate [Lopressor] 200 mg PO BID 02/14/20 Montelukast Sodium [Singulair] 10 mg PO QHS 02/14/20 Pregabalin [Lyrica] 75 mg PO BID 02/14/20 Venlafaxine XR [Effexor Xr] 150 mg PO DAILY 02/14/20 Bupropion HCl [Wellbutrin Xl] 150 mg PO BID 02/22/20 Cyclobenzaprine HCl 5 mg PO TID PRN 02/22/20 Folic Acid/Vit B Complex and C 0.8 mg PO DAILY 02/22/20 [Renal-Alessandro Tablet] Insulin Glargine [Lantus (BKC)] units SC DAILY PRN PRN 02/22/20 Pantoprazole Sodium [Protonix] 40 mg PO DAILY 02/22/20 Pyridostigmine [place] [Mestinon] 60 mg PO DAILY 02/22/20 Triphrocaps 1 mg PO DAILY 02/22/20 Surgical History: Surgical History (Last Reviewed 08/01/19 @ 12:44 by Dee Mukherjee) S/P thymectomy Z90.89 Status post creation of arteriovenous fistula Onset Date: ~04/2019 Z98.890 Status post laparoscopic cholecystectomy Z90.49 Surgical History: - - Thymectomy, cholecystectomy, teeth resection. Psychiatric History: No pertinent psych hx Lives: With Family Smoking Status: Current every day smoker Tobacco Use: Cigarettes Alcohol: None Drugs: None - *Family History Maternal Family History: Family History (Last Reviewed 08/01/19 @ 12:44 by Dee Mukherjee) Father Cancer Hypertension Mother Thyroid disorder History Items: - Paternal Family History: Family History (Last Reviewed 08/01/19 @ 12:44 by Dee Mukherjee) Father Cancer Hypertension Mother Thyroid disorder History Items: Cancer, Hypertension, - Review of Systems Constitutional: Denies: Chills, Fever, Weight Change HEENT: Denies: Head Aches, Sinus Congestion, Sinus Drainage Cardiovascular: Denies: Chest Pain, Palpitations Respiratory: Denies: Cough, Shortness of breath at rest, Sputum production Gastrointestinal: Denies: Abdominal Pain, Nausea, Vomiting Genitourinary: Denies: Dysuria Musculoskeletal: Denies: Joint Pain, Joint Tenderness Skin: Reports: Rash. Denies: Wounds Neurological: Denies: Numbness, Tingling, Focal weakness Psychiatric: Denies: Anxiety, Depression, Homicidal Ideations, Suicidal Ideations Hematologic/ Lymphatic: Denies: Easy Bruising, Easy Bleeding VTE Information - Inpt Only VTE Present on Admission: No VTE Mechan Device Prophylaxis: None VTE Pharm Prophylaxis ordered?: Yes Patient Problems: Active and Suspected Problems (Last Reviewed 08/01/19 @ 12:44 by Dee Mukherjee) Pneumonia (Acute) Hypoxia (Acute) Hypoglycemia (Acute) - Physical Exam Vitals/I&O's: Vital Signs Temp Pulse Resp BP Pulse Ox 98.4 F 57 L 14 111/77 97 02/22/20 13:23 02/22/20 13:23 02/22/20 13:23 02/22/20 13:23 02/22/20 13:23 Oxygen Flow Rate (L/min) 2 Oxygen Delivery Method Room Air Weight: 115 lb 11.883 oz Body Mass Index (BMI) 18.6 Finger Stick Blood Glucose 205 General: Alert, Oriented x3, Cooperative, Lethargic, - - cachexia HEENT: Atraumatic, PERRLA, EOMI, Normocephalic Neck: Supple, No JVD, Negative Carotid Bruits Lungs: Diminished, Rales, Wheezes Cardiovascular: Regular rate, No murmurs Abdomen: Bowel Sounds Present, Soft, Non Tender Extremities: No edema, Capillary Refill Less than 3 Seconds, - - left stump has small wound, dry cracked skin Skin: No breakdown, Rash Present - RUE petechial rash Musculoskeletal: No Tenderness to Palpation of Joints or Extremities, Cachexia Neurological: Cranial nerves II-XII grossly intact Psych/Mental Status: - - lethargic, Alert and oriented to time, place, person, mood and affect Microbiology Past 72 Hours 02/22/20 11:50 Mucosa - Nose SARS-CoV-2 Antigen (Rapid) - Final Laboratory Results 02/22/20 09:09: POC Glucose 69 L 02/22/20 09:10: WBC 9.7, RBC 4.60, Hgb 12.5 L, Hct 39.4 L, MCV 85.7, MCH 27.2, M CHC 31.7 L D, RDW Std Deviation 52.1 H, RDW Coeff of Fidel 17.0 H, Plt Count 127 L , MPV 14.2 H, Immature Gran % (Auto) 0.500, Neut % (Auto) 82.4 H, Lymph % (Auto) 10.2 L, [place] % (Auto) 6.4, Eos % (Auto) 0.3, Baso % (Auto) 0.2, Absolute Neuts (auto) 8.0 H, Absolute Lymphs (auto) 0.98, Nucleated RBC % 0.2, Platelet Estimate SLT DEC, Plt Morphology Comment LARGE 02/22/20 09:10: Sodium 138, Potassium 4.5, Chloride 107, Carbon Dioxide 28.0, Anion Gap 3 L, BUN 20 H, Creatinine 2.98 H, Estim Creat Clear Calc 23.25, Est GFR (MDRD) Af Amer 29 L, Est GFR (MDRD) Non-Af 24 L, BUN/Creatinine Ratio 6.7 L, Glucose 29 L*, Calcium 7.2 L, Total Bilirubin 0.30, AST 33, ALT 82 H, Alkaline Phosphatase 561 H, Total Protein 6.0 L, Albumin 1.7 L, Globulin 4.3 H, Albumin/Globulin Ratio 0.4 L 02/22/20 10:18: POC Glucose 210 H 02/22/20 10:54: POC Glucose 53 L 02/22/20 11:48: POC Glucose 108 02/22/20 12:43: POC Glucose 205 H Assessment/Plan All Active Problems (Last Reviewed 08/01/19 @ 12:44 by Dee Mukherjee) Foot ulcer, left (Acute) Left leg and foot cellulitis (Acute) Pneumonia (Acute) Hypoxia (Acute) Hypoglycemia (Acute) 1. Acute hypoxia 2/2 bilateral pna and COPD exacerbation - CXR with extensive pna, pleural effusions. covid neg. no fever/leukocytosis. Rales and wheezing on exam. Start azithro/rocephin, solumedrol, aerosols, IS, PEP therapy. Obtain Blood cx, lactate pending, check urine antigens, resp panel. 2. Pleural effusions - no LE edema - check BNP. Consider lasix. 3. T1 DM with Hypoglycemia, hx gastroparesis, hx neuropathy - pump removed and given d50 - now resolved. continue accucheck and SSI if needed. 4. Acute metabolic encephalopathy 2/2 #1/#3 - treatment as per above 5. Abnormal LFTs - elevated ALT/Alk phos elevated, bili normal. Platelets low. Check INR. Check Hep Panel. 6. ESRD - dialysis MWF, pt of Dr. Vang 7. Myasthenia gravis - hx thymectomy 8. PAD - hx Left BKA 9. HTN - home meds 10. Suspect protein calorie malnutrition - consult cloth cutter, pt is cachectic DVT ppx: SCDs, pt thrombocytopenic DC planning: PTOT evals. Pt was on [facility] prior This patient was seen by Chuckie Schmidt PA-C under the supervision of Dr. Cao. <[facility] - Last Filed: 02/22/20 17:37> History of Present Illness The patient is a 44 year old M [] Past Medical History Medical History: Medical History (Last Reviewed 08/01/19 @ 12:44 by Dee Mukherjee) Chronic renal failure, stage 4 (severe) (Chronic) N18.4 Gastroparesis due to DM (Chronic) E11.43, K31.84 Cellulitis of right leg (Inactive) L03.115 IBS (irritable bowel syndrome) (Chronic) HTN (hypertension) (Chronic) I10 Diabetes type I (Chronic) Myasthenia gravis (Chronic) G70.00 Allergies levofloxacin [From Levaquin] Allergy (Verified 02/22/20 09:13) Pain in joints lisinopril Allergy (Verified 02/22/20 09:13) Angioedema losartan Allergy (Verified 02/22/20 09:13) Angioedema metoclopramide HCl [From Reglan] Allergy (Verified 02/22/20 09:13) Hives Surgical History: Surgical History (Last Reviewed 08/01/19 @ 12:44 by Dee Mukherjee) S/P thymectomy Z90.89 Status post creation of arteriovenous fistula Onset Date: ~04/2019 Z98.890 Status post laparoscopic cholecystectomy Z90.49 - *Family History Maternal Family History: Family History (Last Reviewed 08/01/19 @ 12:44 by Dee Mukherjee) Father Cancer Hypertension Mother Thyroid disorder Paternal Family History: Family History (Last Reviewed 08/01/19 @ 12:44 by Dee Mukherjee) Father Cancer Hypertension Mother Thyroid disorder - Physical Exam Vitals/I&O's: Vital Signs Temp Pulse Resp BP Pulse Ox 96.6 F L 56 L 20 H 112/81 H 92 02/22/20 14:30 02/22/20 14:30 02/22/20 14:30 02/22/20 14:30 02/22/20 14:30 Oxygen Flow Rate (L/min) 3 Oxygen Delivery Method Nasal Cannula Weight: 48.1 kg Body Mass Index (BMI) 17.1 Finger Stick Blood Glucose 205 Intake and Output for Last 24 Hours 02/20/20 02/21/20 02/22/20 23:59 23:59 23:59 Intake Total 50 / 50 Balance 50 / 50 Microbiology Past 72 Hours 02/22/20 11:50 Mucosa - Nose SARS-CoV-2 Antigen (Rapid) - Final Laboratory Results 02/22/20 09:09: POC Glucose 69 L 02/22/20 09:10: WBC 9.7, RBC 4.60, Hgb 12.5 L, Hct 39.4 L, MCV 85.7, MCH 27.2, MCHC 31.7 L D, RDW Std Deviation 52.1 H, RDW Coeff of Fidel 17.0 H, Plt Count 127 L, MPV 14.2 H, Immature Gran % (Auto) 0.500, Neut % (Auto) 82.4 H, Lymph % (Auto) 10.2 L, [place] % (Auto) 6.4, Eos % (Auto) 0.3, Baso % (Auto) 0.2, Absolute Neuts (auto) 8.0 H, Absolute Lymphs (auto) 0.98, Nucleated RBC % 0.2, Platelet Estimate SLT DEC, Plt Morphology Comment LARGE 02/22/20 09:10: Sodium 138, Potassium 4.5, Chloride 107, Carbon Dioxide 28.0, Anion Gap 3 L, BUN 20 H, Creatinine 2.98 H, Estim Creat Clear Calc 23.25, Est GFR (MDRD) Af Amer 29 L, Est GFR (MDRD) Non-Af 24 L, BUN/Creatinine Ratio 6.7 L, Glucose 29 L*, Calcium 7.2 L, Total Bilirubin 0.30, AST 33, ALT 82 H, Alkaline Phosphatase 561 H, Total Protein 6.0 L, Albumin 1.7 L, Globulin 4.3 H, Albumin/Globulin Ratio 0.4 L 02/22/20 09:10: Phosphorus 3.3 02/22/20 10:18: POC Glucose 210 H 02/22/20 10:54: POC Glucose 53 L 02/22/20 11:48: POC Glucose 108 02/22/20 12:43: POC Glucose 205 H 02/22/20 13:47: Lactic Acid 1.3 02/22/20 13:47: PT 16.8 H, INR 1.4 02/22/20 14:19: Ammonia 29.0 02/22/20 14:37: POC Glucose 67 L 02/22/20 16:06: POC Glucose 166 H Current Medications Acetaminophen (Acetaminophen 325 Mg Tablet) 650 mg PO Q6H PRN PRN PRN Reason: Pain Score 1-10/Temp > 100.7 F Albuterol Sulfate (Albuterol 2.5 Mg/3 Ml Vial.Neb.) 2.5 mg INHALATION Q2H PRN PRN PRN Reason: Shortness of Breath/Wheezing Albuterol/Ipratropium (Ipratropium/Albuterol Sulfate 3 Ml Ampul.Neb) 3 ml INHAL ATION Q4HWA.RT [facility] Last Admin: 02/22/20 15:39 Dose: 3 ml Documented by: Amitriptyline HCl (Amitriptyline 10 Mg Tablet) 20 mg PO QHS [facility] Aspirin (Aspirin 81 Mg Tab.Chew) 81 mg PO DAILY@0800 [facility] Bupropion HCl (Bupropion (Sr) 150 Mg Tablet.Sa) 150 mg PO BID [facility] Calcium Acetate (Calcium Acetate 667 Mg Capsule) 667 mg PO TIDCM [facility] Cholestyramine Resin (Cholestyramine/Sucrose 4 Gm/Packet) 4 gm PO BIDCM [facility] Clopidogrel Bisulfate (Clopidogrel Bisulfate 75 Mg Tablet) 75 mg PO DAILY [facility] Glucagon (Glucagon 1 Mg/Ml Syringe) 1 mg IM .X1 PRN PRN Reason: Hypoglycemia Sodium Chloride () 250 mls @ 15 mls/hr IV .[id number] PRN PRN Reason: Saline Flush Sodium Chloride () 250 mls @ 15 mls/hr IV .[id number] PRN PRN Reason: Additional IVPB Infusion Piperacillin Sod/Tazobactam (Sod 3.375 gm/ Sodium Chloride) 50 mls @ 12.5 mls/hr IV Q12 [facility] Vancomycin IV Pharmacy to Dose (1 ea/ Sodium Chloride) 500 mls @ 250 mls/hr IV X1 PRN; Protocol PRN Reason: Rx to Dose Insulin Human Lispro (Insulin Lispro 100 Unit/Ml Insuln.Pen) 0 unit SC ACHS [facility]; Protocol Last Admin: 02/22/20 16:27 Dose: Not Given Documented by: Levothyroxine Sodium (Levothyroxine 50 Mcg Tablet) 50 mcg PO DAILY@0600 [facility] Methylprednisolone (Methylprednisolone 40 Mg/Ml Vial) 40 mg IV Q8 [facility] Metoprolol Tartrate (Metoprolol Tartrate 100 Mg Tablet) 100 mg PO BID [facility] Montelukast Sodium (Montelukast 10 Mg Tablet) 10 mg PO QHS [facility] Multivit/Ca Carb/B Cmplx/FA/Prenat (Folic Acid/Vitamin B Comp W-C 1 Capsule) 1 capsule PO DAILY [facility] Nitroglycerin (Nitroglycerin (Inpatient Use) 0.4 Mg Tab.Subl) 0.4 mg SUBLINGUAL Q5M PRN PRN Reason: CARDIAC/CHEST PAIN Ondansetron HCl (Ondansetron 4 Mg/2 Ml Vial) 4 mg IV Q8H PRN PRN PRN Reason: NAUSEA/VOMITING Pantoprazole Sodium (Pantoprazole Sodium 40 Mg Tablet) 40 mg PO DAILY [place] Pyridostigmine [place] (Pyridostigmine [place] 60 Mg Tablet) 60 mg PO DAILY [place] Sodium Chloride (0.9% Saline Lock 10 Ml Syringe) 10 - 40 ml IV UD PRN PRN Reason: SALINE FLUSH Assessment/Plan This patient was seen in conjunction with PAULY Fry. I have independently interviewed and examined the patient and reviewed pertinent historical, laboratory, and other data. Please refer to PAULY Fry note for his patient's presentation, findings, and recommendations. I have reviewed and his note and concur with his documentation 44-year-old male with past medical history of type I DM, ESRD on hemodialysis, severe PAD status post left BKA, COPD not on home oxygen who presents with lethargy. Parents was brought to the emergency room with low blood sugar. Patient has stated that he has been trying to keep his blood sugars up. His blood sugar was 41 with the EMS. He admitted that he had toast for breakfast. He has insulin pump that kept going off. Urgency department, his blood sugar was 29, he received an amp of D50. He was also fed a regular diet. His insulin pump was discontinued. His blood sugars improved to 210 then decreased to 56. His other work-up was remarkable for negative COVID-19 rapid antigen testing. Chest x-ray showed marked progression of pulmonary opacities and increasing pleural effusion. It showed extensive pneumonia. Physical Exam: Gen: Cachetic, dishevelled, unwell, lethargic, not pale, not jaundiced CVS:HS I +II, regular, no murmurs RESP: Diminished at lung bases GI: BS present and normal, soft, nontender, no palpable organs EXT:No edema, left BKA SKIN: Petechial rash all over his arms ASSESSMENT: 1. Acute metabolic encephalopathy 2. Recurrent hypoglycemia 3. Elevated LFTs 4. Severe malnutrition 5. ESRD on hemodialysis 6. Myasthenia gravis 7. Severe PAD status post left BKA 8. Hypertension Plan: Continue on IV ceftriaxone azithromycin Urine Legionella enterococcal antigen Continue blood pressure medications Nephrology consult Ammonia level Inpatient E&M: [id number] Init Hosp L3
[2020-02-22 14:03] LABS: International Normalized Ratio 1.4; Prothrombin Time (Protime)PT. 16.8 SECONDS (11.7-14.9)
--- NOTE | 2020-02-22 14:15 | ED.RN ---
pt's mother kenji notified of pt admission/room # and phone # to [id number]
[2020-02-22 14:29] LABS: Lactic Acid 1.3 mmol/L (0.4-1.9)
--- NOTE | 2020-02-22 14:44 | PCM.CONS.R ---
Consultation - Renal 02/22/20 PCP/ Referring MD: Requesting physician: [] Primary care physician: Dr. Jose Graham MD Reason for Consultation:: ESRD HD MWF - History of Present Illness History of Present Illness: The patient is a 44 year old cachectic M with ESRD due to diabetes type 1 s/p BKA for diabetic foot ulcer admitted for hypoglycemia BS 29 on BMP with altered mental status, weakness.Treated with D50 in ED, insulin pump discontinued. Albumin low at 1.7. Seen in ED 3 times within 4 days 02/13- for hypoglycemia. CXR with bilateral alveolar infiltrates and bilateral pleural effusions. Denies CP, SOB, fever, chills. He was hypoxic on RA at 89% on presentation. Rapid antigen COVID-19 test was negative. Started on iv antibx for presumptive pneumonia. Last hemodialysis treatment yesterday at [facility]. History of noncompliance with treatments. Will arrange ultrafiltration for today and remove fluid as tolerated. BP low normal. Will adjust BP meds. E - Allergies Allergies: Allergies levofloxacin [From Levaquin] Allergy (Verified 02/22/20 09:13) Pain in joints lisinopril Allergy (Verified 02/22/20 09:13) Angioedema losartan Allergy (Verified 02/22/20 09:13) Angioedema metoclopramide HCl [From Reglan] Allergy (Verified 02/22/20 09:13) Hives - Current Medications Current Medications: Current Medications Acetaminophen (Acetaminophen 325 Mg Tablet) 650 mg PO Q6H PRN PRN PRN Reason: Pain Score 1-10/Temp > 100.7 F Albuterol Sulfate (Albuterol 2.5 Mg/3 Ml Vial.Neb.) 2.5 mg INHALATION Q2H PRN PRN PRN Reason: Shortness of Breath/Wheezing Albuterol/Ipratropium (Ipratropium/Albuterol Sulfate 3 Ml Ampul.Neb) 3 ml INHALATION Q4HWA.RT [facility] Amitriptyline HCl (Amitriptyline 10 Mg Tablet) 20 mg PO QHS [facility] Aspirin (Aspirin 81 Mg Tab.Chew) 81 mg PO DAILY@0800 [facility] Bupropion HCl (Bupropion (Sr) 150 Mg Tablet.Sa) 150 mg PO BID [facility] Calcium Acetate (Calcium Acetate 667 Mg Capsule) 667 mg PO TIDCM [facility] Cholestyramine Resin (Cholestyramine/Sucrose 4 Gm/Packet) 4 gm PO BIDCM [facility] Clopidogrel Bisulfate (Clopidogrel Bisulfate 75 Mg Tablet) 75 mg PO DAILY [facility] Dextrose (Dextrose 50%-Water 25 Gm/50 Ml Disp.Syrin) 25 gm IV X1 ONE Stop: 02/22/20 14:41 Glucagon (Glucagon 1 Mg/Ml Syringe) 1 mg IM .X1 PRN PRN Reason: Hypoglycemia Ceftriaxone Sodium 2 gm/ (Sodium Chloride) 50 mls @ 100 mls/hr IV Q24 [facility] Azithromycin 500 mg/ Dextrose 255 mls @ 250 mls/hr IV Q24 [facility] Sodium Chloride () 250 mls @ 15 mls/hr IV .[id number] PRN PRN Reason: Saline Flush Sodium Chloride () 250 mls @ 15 mls/hr IV .[id number] PRN PRN Reason: Additional IVPB Infusion Insulin Human Lispro (Insulin Lispro 100 Unit/Ml Insuln.Pen) 0 unit SC ACHS [facility]; Protocol Levothyroxine Sodium (Levothyroxine 50 Mcg Tablet) 50 mcg PO DAILY@0600 [facility] Methylprednisolone (Methylprednisolone 40 Mg/Ml Vial) 40 mg IV Q8 [facility] Metoprolol Tartrate (Metoprolol Tartrate 100 Mg Tablet) 100 mg PO BID [facility] Montelukast Sodium (Montelukast 10 Mg Tablet) 10 mg PO QHS [facility] Multivit/Ca Carb/B Cmplx/FA/Prenat (Folic Acid/Vitamin B Comp W-C 1 Capsule) 1 capsule PO DAILY [facility] Nitroglycerin (Nitroglycerin (Inpatient Use) 0.4 Mg Tab.Subl) 0.4 mg SUBLINGUAL Q5M PRN PRN Reason: CARDIAC/CHEST PAIN Ondansetron HCl (Ondansetron 4 Mg/2 Ml Vial) 4 mg IV Q8H PRN PRN PRN Reason: NAUSEA/VOMITING Pantoprazole Sodium (Pantoprazole Sodium 40 Mg Tablet) 40 mg PO DAILY [facility] Pyridostigmine [place] (Pyridostigmine [place] 60 Mg Tablet) 60 mg PO DAILY [facility] Sodium Chloride (0.9% Saline Lock 10 Ml Syringe) 10 - 40 ml IV UD PRN PRN Reason: SALINE FLUSH - Past Medical History Past Medical History (Chronic Problems): Chronic Problems (Last Reviewed 08/01/19 @ 12:44 by Dee Mukherjee) Diabetic peripheral neuropathy (Chronic) ESRD (end stage renal disease) (Chronic) PAD (peripheral artery disease) (Chronic) Chronic renal failure, stage 4 (severe) (Chronic) Gastroparesis due to DM (Chronic) IBS (irritable bowel syndrome) (Chronic) HTN (hypertension) (Chronic) Diabetes type I (Chronic) Myasthenia gravis (Chronic) - Past Surgical History Surgical History: - - Thymectomy, cholecystectomy, teeth resection. - Social History Smoking Status: Current every day smoker Alcohol: None Drugs: None - Family History Maternal Family History: Family History (Last Reviewed 08/01/19 @ 12:44 by Dee Mukherjee) Father Cancer Hypertension Mother Thyroid disorder History Items: - Paternal Family History: Family History (Last Reviewed 08/01/19 @ 12:44 by Dee Mukherjee) Father Cancer Hypertension Mother Thyroid disorder History Items: Cancer, Hypertension, - Review of Systems Unable to obtain accurate/complete ROS d/t: lethargic, poor historian Patient Problems: Active and Suspected Problems (Last Reviewed 08/01/19 @ 12:44 by Dee Mukherjee) Foot ulcer, left (Acute) Left leg and foot cellulitis (Acute) Pneumonia (Acute) Hypoxia (Acute) Hypoglycemia (Acute) - Physical Exam Vitals/I&O's: Vital Signs Temp Pulse Resp BP Pulse Ox 96.6 F L 56 L 20 H 112/81 H 92 02/22/20 14:30 02/22/20 14:30 02/22/20 14:30 02/22/20 14:30 02/22/20 14:30 Oxygen Flow Rate (L/min) 3 Oxygen Delivery Method Nasal Cannula Weight: 48.1 kg Body Mass Index (BMI) 17.1 Finger Stick Blood Glucose 205 General: Lethargic Lungs: Rales Cardiovascular: Regular rate Extremities: Edema Microbiology Past 72 Hours 02/22/20 11:50 Mucosa - Nose SARS-CoV-2 Antigen (Rapid) - Final Laboratory Results 02/22/20 09:09: POC Glucose 69 L 02/22/20 09:10: WBC 9.7, RBC 4.60, Hgb 12.5 L, Hct 39.4 L, MCV 85.7, MCH 27.2, MCHC 31.7 L D, RDW Std Deviation 52.1 H, RDW Coeff of Fidel 17.0 H, Plt Count 127 L, MPV 14.2 H, Immature Gran % (Auto) 0.500, Neut % (Auto) 82.4 H, Lymph % (Auto) 10.2 L, [place] % (Auto) 6.4, Eos % (Auto) 0.3, Baso % (Auto) 0.2, Absolute Neuts (auto) 8.0 H, Absolute Lymphs (auto) 0.98, Nucleated RBC % 0.2, Platelet Estimate SLT DEC, Plt Morphology Comment LARGE 02/22/20 09:10: Sodium 138, Potassium 4.5, Chloride 107, Carbon Dioxide 28.0, Anion Gap 3 L, BUN 20 H, Creatinine 2.98 H, Estim Creat Clear Calc 23.25, Est GFR (MDRD) Af Amer 29 L, Est GFR (MDRD) Non-Af 24 L, BUN/Creatinine Ratio 6.7 L, Glucose 29 L*, Calcium 7.2 L, Total Bilirubin 0.30, AST 33, ALT 82 H, Alkaline Phosphatase 561 H, Total Protein 6.0 L, Albumin 1.7 L, Globulin 4.3 H, Albumin/Globulin Ratio 0.4 L 02/22/20 10:18: POC Glucose 210 H 02/22/20 10:54: POC Glucose 53 L 02/22/20 11:48: POC Glucose 108 02/22/20 12:43: POC Glucose 205 H 02/22/20 13:47: Lactic Acid 1.3 02/22/20 13:47: PT 16.8 H, INR 1.4 Clinical Impression(s) from Imaging Studies Chest X-Ray 02/22/20 11:36 IMPRESSION: Marked progression of pulmonary opacities and increasing pleural effusions since the prior study. Findings are compatible with extensive pneumonia. Electronically Signed: Riley Diaz MD at 12:19 EST , Service support , Current Medications Acetaminophen (Acetaminophen 325 Mg Tablet) 650 mg PO Q6H PRN PRN PRN Reason: Pain Score 1-10/Temp > 100.7 F Albuterol Sulfate (Albuterol 2.5 Mg/3 Ml Vial.Neb.) 2.5 mg INHALATION Q2H PRN PRN PRN Reason: Shortness of Breath/Wheezing Albuterol/Ipratropium (Ipratropium/Albuterol Sulfate 3 Ml Ampul.Neb) 3 ml INHALATION Q4HWA.RT [facility] Amitriptyline HCl (Amitriptyline 10 Mg Tablet) 20 mg PO QHS [facility] Aspirin (Aspirin 81 Mg Tab.Chew) 81 mg PO DAILY@0800 [facility] Bupropion HCl (Bupropion (Sr) 150 Mg Tablet.Sa) 150 mg PO BID [facility] Calcium Acetate (Calcium Acetate 667 Mg Capsule) 667 mg PO TIDCM [facility] Cholestyramine Resin (Cholestyramine/Sucrose 4 Gm/Packet) 4 gm PO BIDCM [facility] Clopidogrel Bisulfate (Clopidogrel Bisulfate 75 Mg Tablet) 75 mg PO DAILY [facility] Dextrose (Dextrose 50%-Water 25 Gm/50 Ml Disp.Syrin) 25 gm IV X1 ONE Stop: 02/22/20 14:41 Glucagon (Glucagon 1 Mg/Ml Syringe) 1 mg IM .X1 PRN PRN Reason: Hypoglycemia Ceftriaxone Sodium 2 gm/ (Sodium Chloride) 50 mls @ 100 mls/hr IV Q24 [facility] Azithromycin 500 mg/ Dextrose 255 mls @ 250 mls/hr IV Q24 [facility] Sodium Chloride () 250 mls @ 15 mls/hr IV .[id number] PRN PRN Reason: Saline Flush Sodium Chloride () 250 mls @ 15 mls/hr IV .[id number] PRN PRN Reason: Additional IVPB Infusion Insulin Human Lispro (Insulin Lispro 100 Unit/Ml Insuln.Pen) 0 unit SC ACHS [facility]; Protocol Levothyroxine Sodium (Levothyroxine 50 Mcg Tablet) 50 mcg PO DAILY@0600 [facility] Methylprednisolone (Methylprednisolone 40 Mg/Ml Vial) 40 mg IV Q8 [facility] Metoprolol Tartrate (Metoprolol Tartrate 100 Mg Tablet) 100 mg PO BID [facility] Montelukast Sodium (Montelukast 10 Mg Tablet) 10 mg PO QHS [facility] Multivit/Ca Carb/B Cmplx/FA/Prenat (Folic Acid/Vitamin B Comp W-C 1 Capsule) 1 capsule PO DAILY [facility] Nitroglycerin (Nitroglycerin (Inpatient Use) 0.4 Mg Tab.Subl) 0.4 mg SUBLINGUAL Q5M PRN PRN Reason: CARDIAC/CHEST PAIN Ondansetron HCl (Ondansetron 4 Mg/2 Ml Vial) 4 mg IV Q8H PRN PRN PRN Reason: NAUSEA/VOMITING Pantoprazole Sodium (Pantoprazole Sodium 40 Mg Tablet) 40 mg PO DAILY [facility] Pyridostigmine [place] (Pyridostigmine [place] 60 Mg Tablet) 60 mg PO DAILY [facility] Sodium Chloride (0.9% Saline Lock 10 Ml Syringe) 10 - 40 ml IV UD PRN PRN Reason: SALINE FLUSH Assessment/Plan All Active Problems (Last Reviewed 08/01/19 @ 12:44 by Dee Mukherjee) Foot ulcer, left (Acute) Left leg and foot cellulitis (Acute) Pneumonia (Acute) Hypoxia (Acute) Hypoglycemia (Acute) 1. ESRD HD MWF. Last treatment Monday. Noncompliance with dialysis treatements about once a week. Next HD Monday. 2. Bilateral pleural effusion with alveolar infiltrates. Arrange UF only as tolerated today with albumin if needed. 3. Hypoglycemia on insulin pump 4. DM type 1 with foot ulcer s/p amputation 5. HTN adjust BP medications as needed. 6. Bradycardia decrease metoprolol 7. Protein calorie malnutrition add protein supplements. 8. Hyperphosphatemia check phos level, binders as needed addendum: hypoxic, hypotensive, restless with respiratory arrest shortly starting dialysis. Dialysis terminated. PLASTIC DIE MAKER APPRENTICE called and pt intubated, transferred to ICU. UF restarted after stabilized after transfer to ICU. UF 1.6L total.
[2020-02-22 14:46] LABS: Bedside Glucose 67 mg/dL (70-110)
[2020-02-22] MEDS: Ipratropium/Albuterol Sulfate 3 ML AMPUL.NEB INHALATION ×2 (15:39→20:45)
[2020-02-22 15:56] LABS: Phosphorus 3.3 mg/dL (2.5-4.9)
[2020-02-22 16:11] LABS: Bedside Glucose 166 mg/dL (70-110)
--- NOTE | 2020-02-22 17:20 | RAD_ITS ---
STUDY: X-RAY CHEST REASON FOR EXAM: Male, 44 years old. ETT PLACEMENT TECHNIQUE: AP COMPARISON: Earlier today FINDINGS: Endotracheal tube identified with tip terminating at the level of clavicles. Enteric tube extends the left upper abdomen. Bilateral multilobar airspace disease overall similar in distribution since earlier today. The bilateral pleural effusions appear relatively smaller as compared to earlier today. No pneumothorax. There is mild cardiac enlargement. Sternal wires and mediastinal surgical clips compatible with prior CABG. Normal visualized pulmonary arteries. Normal visualized aortic arch and descending thoracic aorta. No acute bony process. There is no demonstrated abnormality of the visualized soft tissue structures of the upper abdomen. RAD/CXR for Line Placement IMPRESSION: 1. Satisfactory position of endotracheal and enteric tubes. 2. Multilobar airspace disease and pleural effusions, the latter mildly decreased. Electronically Signed: Guilherme Mazariegos MD ([place]) at 17:56 EST , Service support ,
--- NOTE | 2020-02-22 17:20 | RAD_ITS ---
STUDY: X-RAY - ABDOMEN/PELVIS REASON FOR EXAM: Male, 44 years old. NG/OG PLACEMENT TECHNIQUE: Single AP view of the abdomen / pelvis. COMPARISON: 02/22/2020 FINDINGS: Endotracheal tube is seen terminating in at the level of clavicles. Enteric tube extends left upper abdomen/stomach. There is bilateral pulmonary consolidation with bilateral pleural effusions, not substantially changed since earlier today. Relative diffuse lucency throughout the central upper abdomen could be artifact of technique although pneumoperitoneum cannot be excluded. No dilated loops of air-filled small bowel seen. The visualized liver, spleen and kidneys are grossly normal in size and morphology. Normal soft tissue structures. There are diffuse degenerative changes of the visualized lumbar spine. RAD/Abdomen Single View (Portable) IMPRESSION: 1. Satisfactory position of enteric tube. Relative lucency of the upper abdomen could be artifactual although pneumoperitoneum cannot be excluded. 2. Bilateral airspace disease and pleural effusions. Electronically Signed: Guilherme Mazariegos MD ([place]) at 17:53 EST , Service support ,
--- NOTE | 2020-02-22 17:38 | RRT_ITS ---
Rapid Response Note A rapid response was called at 1650 hrs. Patient blood pressure 75/50, he was progressively lethargic. He was on dialysis. Blood sugar was 219. Heart rate was 129. ABGs ordered showed pH of 7.08, PCO2 was 91.2, PO2 of 57.4 Patient was made to intubate patient. Patient was made to intubate patient. Patient was intubated by Dr. Patel. He was moved to ICU See procedure note. Critical care informed Patient was put on vent settings of tidal volume 450, FiO2 50%, PEEP of 5 Will be maintained on fentanyl drip with monitoring of blood pressure Would discontinue ceftriaxone and azithromycin Start on IV vancomycin and Zosyn Patient's mother who is the next of kin was informed. Time spent at the bedside: 65 minutes; evaluating, coordinating care Patient Problems: Active and Suspected Problems (Last Reviewed 08/01/19 @ 12:44 by Dee Mukherjee) Pneumonia (Acute) Hypoxia (Acute) Hypoglycemia (Acute) - Physical Exam Vitals/I&O's: Vital Signs Temp Pulse Resp BP Pulse Ox 96.6 F L 54 L 20 H 101/73 92 02/22/20 14:30 02/22/20 17:08 02/22/20 14:30 02/22/20 17:08 02/22/20 14:30 Oxygen Flow Rate (L/min) 3 Oxygen Delivery Method Nasal Cannula Weight: 48.1 kg Body Mass Index (BMI) 17.1 Finger Stick Blood Glucose 205 Intake and Output for Last 24 Hours 02/20/20 02/21/20 02/22/20 23:59 23:59 23:59 Intake Total 50 / 50 Balance 50 / 50 Microbiology Past 72 Hours 02/22/20 11:50 Mucosa - Nose SARS-CoV-2 Antigen (Rapid) - Final Laboratory Results 02/22/20 09:09: POC Glucose 69 L 02/22/20 09:10: WBC 9.7, RBC 4.60, Hgb 12.5 L, Hct 39.4 L, MCV 85.7, MCH 27.2, MCHC 31.7 L D, RDW Std Deviation 52.1 H, RDW Coeff of Fidel 17.0 H, Plt Count 127 L, MPV 14.2 H, Immature Gran % (Auto) 0.500, Neut % (Auto) 82.4 H, Lymph % (Auto) 10.2 L, [place] % (Auto) 6.4, Eos % (Auto) 0.3, Baso % (Auto) 0.2, Absolute Neuts (auto) 8.0 H, Absolute Lymphs (auto) 0.98, Nucleated RBC % 0.2, Platelet Estimate SLT DEC, Plt Morphology Comment LARGE 02/22/20 09:10: Sodium 138, Potassium 4.5, Chloride 107, Carbon Dioxide 28.0, Anion Gap 3 L, BUN 20 H, Creatinine 2.98 H, Estim Creat Clear Calc 23.25, Est GFR (MDRD) Af Amer 29 L, Est GFR (MDRD) Non-Af 24 L, BUN/Creatinine Ratio 6.7 L, Glucose 29 L*, Calcium 7.2 L, Total Bilirubin 0.30, AST 33, ALT 82 H, Alkaline Phosphatase 561 H, Total Protein 6.0 L, Albumin 1.7 L, Globulin 4.3 H, Albumin/Globulin Ratio 0.4 L 02/22/20 09:10: Phosphorus 3.3 02/22/20 10:18: POC Glucose 210 H 02/22/20 10:54: POC Glucose 53 L 02/22/20 11:48: POC Glucose 108 02/22/20 12:43: POC Glucose 205 H 02/22/20 13:47: Lactic Acid 1.3 02/22/20 13:47: PT 16.8 H, INR 1.4 02/22/20 14:19: Ammonia 29.0 02/22/20 14:37: POC Glucose 67 L 02/22/20 16:06: POC Glucose 166 H Current Medications Acetaminophen (Acetaminophen 325 Mg Tablet) 650 mg PO Q6H PRN PRN PRN Reason: Pain Score 1-10/Temp > 100.7 F Albuterol Sulfate (Albuterol 2.5 Mg/3 Ml Vial.Neb.) 2.5 mg INHALATION Q2H PRN PRN PRN Reason: Shortness of Breath/Wheezing Albuterol/Ipratropium (Ipratropium/Albuterol Sulfate 3 Ml Ampul.Neb) 3 ml INHALATION Q4HWA.RT [facility] Last Admin: 02/22/20 15:39 Dose: 3 ml Documented by: Amitriptyline HCl (Amitriptyline 10 Mg Tablet) 20 mg PO QHS [facility] Aspirin (Aspirin 81 Mg Tab.Chew) 81 mg PO DAILY@0800 [facility] Bupropion HCl (Bupropion (Sr) 150 Mg Tablet.Sa) 150 mg PO BID [facility] Calcium Acetate (Calcium Acetate 667 Mg Capsule) 667 mg PO TIDCM [facility] Cholestyramine Resin (Cholestyramine/Sucrose 4 Gm/Packet) 4 gm PO BIDCM [facility] Clopidogrel Bisulfate (Clopidogrel Bisulfate 75 Mg Tablet) 75 mg PO DAILY [facility] Glucagon (Glucagon 1 Mg/Ml Syringe) 1 mg IM .X1 PRN PRN Reason: Hypoglycemia Sodium Chloride () 250 mls @ 15 mls/hr IV .[id number] PRN PRN Reason: Saline Flush Sodium Chloride () 250 mls @ 15 mls/hr IV .[id number] PRN PRN Reason: Additional IVPB Infusion Piperacillin Sod/Tazobactam (Sod 3.375 gm/ Sodium Chloride) 50 mls @ 12.5 mls/hr IV Q12 [facility] Vancomycin IV Pharmacy to Dose (1 ea/ Sodium Chloride) 500 mls @ 250 mls/hr IV X1 PRN; Protocol PRN Reason: Rx to Dose Fentanyl Citrate 1,000 mcg/ (Sodium Chloride) 100 mls @ 5 mls/hr CONT INF .Q20H [facility]; Protocol Dextrose/Sodium Chloride (Dextrose 5%/0.9% Nacl) 1,000 mls @ 100 mls/hr IV .Q10 H [facility] Insulin Human Lispro (Insulin Lispro 100 Unit/Ml Insuln.Pen) 0 unit SC ACHS [facility]; Protocol Last Admin: 02/22/20 16:27 Dose: Not Given Documented by: Levothyroxine Sodium (Levothyroxine 50 Mcg Tablet) 50 mcg PO DAILY@0600 [facility] Methylprednisolone (Methylprednisolone 40 Mg/Ml Vial) 40 mg IV Q8 [facility] Metoprolol Tartrate (Metoprolol Tartrate 100 Mg Tablet) 100 mg PO BID [facility] Montelukast Sodium (Montelukast 10 Mg Tablet) 10 mg PO QHS [facility] Multivit/Ca Carb/B Cmplx/FA/Prenat (Folic Acid/Vitamin B Comp W-C 1 Capsule) 1 capsule PO DAILY [facility] Nitroglycerin (Nitroglycerin (Inpatient Use) 0.4 Mg Tab.Subl) 0.4 mg SUBLINGUAL Q5M PRN PRN Reason: CARDIAC/CHEST PAIN Ondansetron HCl (Ondansetron 4 Mg/2 Ml Vial) 4 mg IV Q8H PRN PRN PRN Reason: NAUSEA/VOMITING Pantoprazole Sodium (Pantoprazole Sodium 40 Mg Tablet) 40 mg PO DAILY [facility] Pyridostigmine [place] (Pyridostigmine [place] 60 Mg Tablet) 60 mg PO DAILY [facility] Sodium Chloride (0.9% Saline Lock 10 Ml Syringe) 10 - 40 ml IV UD PRN PRN Reason: SALINE FLUSH Assessment/Plan All Active Problems (Last Reviewed 08/01/19 @ 12:44 by Dee Mukherjee) Foot ulcer, left (Acute) Left leg and foot cellulitis (Acute) Pneumonia (Acute) Hypoxia (Acute) Hypoglycemia (Acute)
--- NOTE | 2020-02-22 17:38 | EKG12_ITS ---
Test Reason : POST INTUBATION Blood Pressure : / mmHG Vent. Rate : 056 BPM Atrial Rate : 056 BPM P-R Int : 158 ms QRS Dur : 098 ms QT Int : 498 ms P-R-T Axes : 056 045 097 degrees QTc Int : 480 ms Sinus bradycardia Low voltage QRS (Limb Leads) Poor R wave progression Confirmed by BUBBA PACHECO, PEDRO ([id number]), editor dictionary BART GATES ([id number]) on 02/26/2020 10:02:34 AM Referred By: HOMA Confirmed By:PEDRO MAC MD
[2020-02-22 17:46] LABS: Bedside Glucose 219 mg/dL (70-110)
--- NOTE | 2020-02-22 17:50 | NURSING ---
Warm blankets applied for hypothermia; will monitor
--- NOTE | 2020-02-22 18:00 | CPS ---
Critical values were notified to Dr. Cao.
--- NOTE | 2020-02-22 18:37 | NURSING ---
Around 1640 lithographic platemaker requested more oxygen for pt as she had already increased his NC to 6L. scribing machine operator and this RN enter room with non rebreather. Noticed oxygen saturation in the 80's. Dr. Cao paged. BP obtained and was dropping to 70's/40's so APPRAISAL TECHNICIAN called at 1645. Pt only responsive to sternal rub. Decision was made to intubate at bedside. Mother, Lisset, called with update around 1706 and notified of pt status and transfer to ICU. Face to face report given to Tashi BATTERY HAND.
--- NOTE | 2020-02-22 20:15 | CPS ---
Venous blood drawn instead of Arterial.
--- NOTE | 2020-02-22 20:19 | PN_ITS ---
Progress Note Rapid response was called at around 1650. I responded with the PA to the room patient was recently admitted to the hospital this afternoon and was undergoing dialysis when he became hypotensive, unresponsive. His oxygen saturations dropped into the 80s. His dialysis was discontinued immediately and dialysis was reversed. He became a little bit more alert and then became unresponsive again at this point his oxygen saturations dropped into the 70s. An ABG had been obtained prior to this and initially BiPAP was going to be instituted how ever he decompensated quicker than expected and therefore he was intubated. He was given a dose of etomidate and succinylcholine, and the vocal cords were visualized and the ET tube was inserted under direct visualization. Bilateral lung sounds were heard and then an OG was placed and gastric sounds were heard. Chest x-ray was was obtained demonstrating excellent position of the ET tube, and the OG tube is seen going into the stomach. He does have bilateral fluffy infiltrates as well as pleural effusions. ABG did come back after intubation, and pH was 7.08 with a PCO2 of 91.2 and a PO2 of 57.4. He was transferred to the ICU in stable condition. He was continued on IV antibiotics and critical care was notified. Critical care time spent at bedside 45 minutes STROKE Vital Signs/Narrative: Vital Signs Temp Pulse Resp BP BP Pulse Ox 02/22/20 20:00 56 L 16 119/90 H 99 02/22/20 19:00 95.1 F L 56 L 15 109/86 H 02/22/20 18:45 95.2 F L 58 L 14 118/86 H 98 02/22/20 18:30 94.8 F L 58 L 14 117/87 H 99 02/22/20 18:15 94.7 F L 56 L 14 118/90 H 98 02/22/20 18:00 94.4 F L 56 L 14 119/92 H 99 02/22/20 17:58 99 02/22/20 17:45 94.3 F L 56 L 14 117/94 H 99 02/22/20 17:41 55 L 15 100 02/22/20 17:08 54 L 101/73 Procedures: [id number] Critial Care 1st Hr
[2020-02-22 20:26] LABS: Blood Gas Specimen Type VEN; O2 Delivery Device Adult Vent; PEEP 5; SITE R Radial; VBG BASE EXCESS 1 mmol/L (-1.0-3.5); VBG Bicarbonate 25 mmol/L (22-26); VBG PO2 48 mmHg (25-40); VBG SO2 83 % (50-70); VBG TCO2 27 mmol/L (23-33); VBG pCO2 40.8 mmHg (41-51)
--- NOTE | 2020-02-22 20:53 | DIALYSIS ---
IUF completed x 2 hrs. Access via [facility] AVF.Net fluid removal 1600ml . Pt stable post tx. See HD flowsheet on chart.
[2020-02-22] MEDS: Metoprolol Tartrate 100 MG Tablet PO (21:07)
[2020-02-22] MEDS: Amitriptyline 10 MG Tablet 20 MG PO (21:07)
[2020-02-22] MEDS: buPROPion (SR) 150 MG Tablet.SA PO (21:08)
[2020-02-22] MEDS: Montelukast 10 MG Tablet PO (21:08)
[2020-02-22 21:15] LABS: Bedside Glucose 213 mg/dL (70-110)
[2020-02-22] MEDS: Insulin Lispro 100 UNIT/ML INSULN.PEN SC (21:30)
[2020-02-23] VITALS (34 sets, daily range): BP systolic 107–149; BP diastolic 70–100; PULSE 67–77; RESP 14–21; TEMP 36.8–38.6; O2SAT 89–99; BMI 17.2
--- NOTE | 2020-02-23 01:29 | PCM.RX.CS ---
Consult Pharmacy has been consulted to manage selected antiobiotic: Vancomycin Type of Consult: New start Suspected Infection: Pneumonia Prior Doses of Antibiotics Received/Current Regimen: Medications Vancomycin HCl 750 mg/ Sodium (Chloride) 265 mls @ 250 mls/hr IV X1 ONE Stop: 02/22/20 21:48 Last Admin: 02/22/20 21:31 Dose: 250 mls/hr Labs: Sodium 138 mmol/L (136-145) 02/22/20 09:10 Potassium 4.5 mmol/L (3.5-5.1) 02/22/20 09:10 Chloride 107 mmol/L (98-107) 02/22/20 09:10 Carbon Dioxide 28.0 mmol/L (21.0-32.0) 02/22/20 09:10 Anion Gap 3 (5-15) L 02/22/20 09:10 BUN 20 mg/dL (7-18) H 02/22/20 09:10 Creatinine 2.98 mg/dL (0.70-1.30) H 02/22/20 09:10 Est GFR (MDRD) Af Amer 29 mL/min (>60) L 02/22/20 09:10 Est GFR (MDRD) Non-Af 24 mL/min (>60) L 02/22/20 09:10 BUN/Creatinine Ratio 6.7 RATIO (10-20) L 02/22/20 09:10 Glucose 29 mg/dL (74-106) L* 02/22/20 09:10 Microbiology: Microbiology 02/22/20 18:35 Urine Catheter - Catheter Streptococcus pneumoniae Antigen (M - Final 02/22/20 18:35 Urine Catheter - [place] Legionella Antigen - Final 02/22/20 15:37 Mucosa - Nasopharyngeal Respiratory Panel (PCR) - Final 02/22/20 11:50 Mucosa - Nose SARS-CoV-2 Antigen (Rapid) - Final Weight used for dosin.1 kg Estimated Creatinine Clearance: 23 Goal Trough: 15-20 mcg/mL Pharmacy Plan for Drug Dosing: Initial vancomycin dose of 750mg was given 02/22/20 @2131. Further doses will be timed after dialysis sessions. Pharmacy will verify HD timing with RN. Pharmacy Service will continue to monitor and adjust dosing as required.
[2020-02-23] MEDS: Ipratropium/Albuterol Sulfate 3 ML AMPUL.NEB INHALATION ×5 (03:25→18:30)
[2020-02-23 05:16] LABS: Bedside Glucose 123 mg/dL (70-110)
[2020-02-23 05:25] LABS: Absolute Lymphocyte Count 0.23 X10^3/uL (0.83-4.51); Absolute Neutrophil Count 5.7 X10^3/uL (2.0-7.7); Hematocrit 36.2 % (40-54); Hemoglobin 11.5 g/dL (13.0-16.5); Lymphocyte # 0.23 X10^3/ul (4.0); Lymphocyte % 3.7 % (19-41); Mean Corp Hgb Conc 31.8 g/dL (32-36); Monocyte# 0.17 X10^3/uL; Monocyte% 2.8 % (0-10); NRBC Flagged by Analyzer 0 % (0-5); Neutrophil # 5.74 X10^3/uL (2.7-7.7); Neutrophil % 92.9 % (47-70); POSITIVE COUNT YES; POSITIVE DIFFERENTIAL YES; Platelet Count 72 K/mm3 (150-450); RBC Distribution Width CV 17.2 % (11.6-14.6); RBC Distribution Width SD 52.5 fl (35.1-43.9); Red Blood Count 4.26 M/mm3 (4.6-6.2); White Blood Count 6.2 K/mm3 (4.4-11.0)
[2020-02-23 05:30] LABS: Differential Indicated SCAN CRITERIA MET
[2020-02-23 05:43] LABS: ALB/GLOB Ratio 0.4 RATIO (0.9-2.4); AST(SGOT) 26 U/L (15-37); Alanine Aminotransfer ALT/SGPT 63 U/L (16-61); Albumin, Serum 1.6 g/dL (3.2-5.0); Alkaline Phosphatase 521 U/L (45-117); Anion Gap 13 (5-15); BUN 24 mg/dL (7-18); Calcium,Total 7.1 mg/dL (8.5-10.1); Chloride 103 mmol/L (98-107); Creatinine, Serum 2.99 mg/dL (0.70-1.30); EST Glomerular Filtration Rate 24 mL/min (>60); Est Glom Filt Rate - Afr Amer 29 mL/min (>60); Estimated Creatinine Clearance 21.23 ml/min; Globulin 3.9 g/dL (2.2-4.2); Glucose 124 mg/dL (74-106); Potassium 4.1 mmol/L (3.5-5.1); Protein, Total 5.5 g/dL (6.4-8.2); Sodium Level 137 mmol/L (136-145)
[2020-02-23 05:46] LABS: Platelet Estimate MOD DEC (ADEQ)
[2020-02-23 07:00] LABS: Allen Test Positive; Base Excess -2 mmol/L (-2 to +2); Bicarbonate 27.8 mmol/L (22-26); Blood Gas Specimen Type ART; FI02 100; O2 Delivery Device NRB; PO2 55 mmHG (75-100); SITE R Radial; SO2 72 % (95-99); Total Carbon Dioxide 31 mmol/L; pCO2 95.6 mmHg (35-45); pH 7.07 (7.35-7.45)
--- NOTE | 2020-02-23 07:30 | PN_ITS ---
Patient Problems: Active and Suspected Problems (Last Reviewed 08/01/19 @ 12:44 by Dee Mukherjee) Foot ulcer, left (Acute) Left leg and foot cellulitis (Acute) Pneumonia (Acute) Hypoxia (Acute) Hypoglycemia (Acute) Reason for Visit: Follow-up on respiratory failure/bilateral pneumonia Subjective: [place] was seen and examined. Overnight, his vital signs remained stable. He was hypothermic earlier on, bear hugger was used. Attempt at spontaneous weaning trial was unsuccessful. He denied any fever or chills. Objective: Physical exam: General: Intubated, on mechanical ventilator HEENT: Atraumatic, PERRLA, EOMI, Normocephalic Neck: Supple, No JVD, Negative Carotid Bruits Lungs: Diminished, Rales, Wheezes Cardiovascular: Regular rate, No murmurs Abdomen: Bowel Sounds Present, Soft, Non Tender Extremities: No edema, - - left BKA stump has small wound, dry cracked skin Skin: No breakdown, Rash Present - RUE petechial rash Musculoskeletal: No Tenderness to Palpation of Joints or Extremities, Cachexia Vitals/I&O's: Vital Signs Temp Pulse Resp BP Pulse Ox 99.2 F H 73 18 130/81 H 96 02/23/20 07:00 02/23/20 07:00 02/23/20 07:00 02/23/20 07:00 02/23/20 07:00 Oxygen Flow Rate (L/min) 6 Oxygen Delivery Method Mechanical Ventilator Weight: 48.5 kg Body Mass Index (BMI) 17.1 Finger Stick Blood Glucose 205 Intake and Output for Last 24 Hours 02/21/20 02/22/20 02/23/20 23:59 23:59 23:59 Intake Total 305 / 305 Output Total 1750 / 1760 Balance -1445 / -1455 -10 Microbiology Past 72 Hours 02/22/20 18:35 Urine Catheter - Catheter Streptococcus pneumoniae Antigen (M - Final 02/22/20 18:35 Urine Catheter - [place] Legionella Antigen - Final 02/22/20 15:37 Mucosa - Nasopharyngeal Respiratory Panel (PCR) - Final 02/22/20 11:50 Mucosa - Nose SARS-CoV-2 Antigen (Rapid) - Final Laboratory Results 02/22/20 09:09: POC Glucose 69 L 02/22/20 09:10: WBC 9.7, RBC 4.60, Hgb 12.5 L, Hct 39.4 L, MCV 85.7, MCH 27.2, MCHC 31.7 L D, RDW Std Deviation 52.1 H, RDW Coeff of Fidel 17.0 H, Plt Count 127 L, MPV 14.2 H, Immature Gran % (Auto) 0.500, Neut % (Auto) 82.4 H, Lymph % (Auto) 10.2 L, [place] % (Auto) 6.4, Eos % (Auto) 0.3, Baso % (Auto) 0.2, Absolute Neuts (auto) 8.0 H, Absolute Lymphs (auto) 0.98, Nucleated RBC % 0.2, Platelet Estimate SLT DEC, Plt Morphology Comment LARGE 02/22/20 09:10: Sodium 138, Potassium 4.5, Chloride 107, Carbon Dioxide 28.0, Anion Gap 3 L, BUN 20 H, Creatinine 2.98 H, Estim Creat Clear Calc 23.25, Est GFR (MDRD) Af Amer 29 L, Est GFR (MDRD) Non-Af 24 L, BUN/Creatinine Ratio 6.7 L, Glucose 29 L*, Calcium 7.2 L, Total Bilirubin 0.30, AST 33, ALT 82 H, Alkaline Phosphatase 561 H, Total Protein 6.0 L, Albumin 1.7 L, Globulin 4.3 H, Albumin/Globulin Ratio 0.4 L 02/22/20 09:10: Phosphorus 3.3 02/22/20 10:18: POC Glucose 210 H 02/22/20 10:54: POC Glucose 53 L 02/22/20 11:48: POC Glucose 108 02/22/20 12:43: POC Glucose 205 H 02/22/20 13:47: Lactic Acid 1.3 02/22/20 13:47: PT 16.8 H, INR 1.4 02/22/20 14:19: Ammonia 29.0 02/22/20 14:37: POC Glucose 67 L 02/22/20 16:06: POC Glucose 166 H 02/22/20 16:47: POC Glucose 219 H 02/22/20 17:03: Specimen Type ART, Sample Site R Radial, pH 7.07 L*, Bicarbonate Actual 27.8 H, Total CO2 31, Base Excess -2, O2 Saturation 72 L, O2 % 100, ABG pCO2 95.6 H*, ABG pO2 55 L, Marco A Test Positive, O2 Delivery Device NRB 02/22/20 20:17: Specimen Type DANITA, Sample Site R Radial, VBG pH 7.40, VBG pO2 48 H, VBG HCO3 25, VBG Total CO2 27, VBG O2 Sat (Calc) 83 H, VBG Base Excess 1, POC Mix VBG pCO2 Pt Tmp 40.8 L, O2 Delivery Device Adult Vent, POC PEEP 5 02/22/20 20:24: POC Glucose 213 H 02/23/20 05:05: WBC 6.2, RBC 4.26 L, Hgb 11.5 L, Hct 36.2 L, MCV 85.0, MCH 27.0, MCHC 31.8 L, RDW Std Deviation 52.5 H, RDW Coeff of Fidel 17.2 H, Plt Count 72 L, Immature Gran % (Auto) 0.600, Neut % (Auto) 92.9 H, Lymph % (Auto) 3.7 L, [place] % (Auto) 2.8, Eos % (Auto) 0.0, Baso % (Auto) 0.0, Absolute Neuts (auto) 5.7, Absolute Lymphs (auto) 0.23 L, Nucleated RBC % 0, Platelet Estimate MOD DEC 02/23/20 05:05: Sodium 137, Potassium 4.1, Chloride 103, Carbon Dioxide 21.0, Anion Gap 13, BUN 24 H, Creatinine 2.99 H, Estim Creat Clear Calc 21.23, Est GFR (MDRD) Af Amer 29 L, Est GFR (MDRD) Non-Af 24 L, BUN/Creatinine Ratio 8.0 L, Glucose 124 H, Calcium 7.1 L, Total Bilirubin 0.30, AST 26, ALT 63 H, Alkaline Phosphatase 521 H, Total Protein 5.5 L, Albumin 1.6 L, Globulin 3.9, Albumin/Globulin Ratio 0.4 L 02/23/20 05:13: POC Glucose 123 H Current Medications Acetaminophen (Acetaminophen 650 Mg/20 Ml Udc) 650 mg GT Q6H PRN PRN PRN Reason: Pain Score 1-10/Temp > 100.7 F Albuterol Sulfate (Albuterol 2.5 Mg/3 Ml Vial.Neb.) 2.5 mg INHALATION Q2H PRN PRN PRN Reason: Shortness of Breath/Wheezing Albuterol/Ipratropium (Ipratropium/Albuterol Sulfate 3 Ml Ampul.Neb) 3 ml INHALATION Q4HWA.RT [facility] Last Admin: 02/23/20 03:25 Dose: 3 ml Documented by: Amitriptyline HCl (Amitriptyline 10 Mg Tablet) 20 mg PO QHS [facility] Last Admin: 02/22/20 21:07 Dose: 20 mg Documented by: Aspirin (Aspirin 81 Mg Tab.Chew) 81 mg PO DAILY@0800 [facility] Bupropion HCl (Bupropion (Sr) 150 Mg Tablet.Sa) 150 mg PO BID [facility] Last Admin: 02/22/20 21:08 Dose: 150 mg Documented by: Calcium Acetate (Calcium Acetate 667 Mg Capsule) 667 mg PO TIDCM [facility] Last Admin: 02/22/20 18:05 Dose: Not Given Documented by: Cholestyramine Resin (Cholestyramine/Sucrose 4 Gm/Packet) 4 gm PO BIDCM [facility] Last Admin: 02/22/20 18:05 Dose: Not Given Documented by: Clopidogrel Bisulfate (Clopidogrel Bisulfate 75 Mg Tablet) 75 mg PO DAILY [facility] Glucagon (Glucagon 1 Mg/Ml Syringe) 1 mg IM .X1 PRN PRN Reason: Hypoglycemia Sodium Chloride () 250 mls @ 15 mls/hr IV .[id number] PRN PRN Reason: Saline Flush Sodium Chloride () 250 mls @ 15 mls/hr IV .[id number] PRN PRN Reason: Additional IVPB Infusion Vancomycin IV Pharmacy to Dose (1 ea/ Sodium Chloride) 500 mls @ 250 mls/hr IV PRN PRN; Protocol PRN Reason: Rx to Dose Fentanyl Citrate 1,000 mcg/ (Sodium Chloride) 100 mls @ 5 mls/hr CONT INF .Q20H [facility]; Protocol Last Admin: 02/23/20 01:16 Dose: 50 mcg/hr, 5 mls/hr Documented by: Piperacillin Sod/Tazobactam (Sod 3.375 gm/ Sodium Chloride) 50 mls @ 12.5 mls/hr IV Q12 [place] Insulin Human Lispro (Insulin Lispro 100 Unit/Ml Insuln.Pen) 0 unit SC ACHS [facility]; Protocol Last Admin: 02/22/20 21:30 Dose: 1 u Documented by: Levothyroxine Sodium (Levothyroxine 50 Mcg Tablet) 50 mcg PO DAILY@0600 [facility] Methylprednisolone (Methylprednisolone 40 Mg/Ml Vial) 40 mg IV Q8 [facility] Last Admin: 02/22/20 21:07 Dose: 40 mg Documented by: Metoprolol Tartrate (Metoprolol Tartrate 100 Mg Tablet) 100 mg PO BID [facility] Last Admin: 02/22/20 21:07 Dose: 100 mg Documented by: Montelukast Sodium (Montelukast 10 Mg Tablet) 10 mg PO QHS [facility] Last Admin: 02/22/20 21:08 Dose: 10 mg Documented by: Multivit/Ca Carb/B Cmplx/FA/Prenat (Folic Acid/Vitamin B Comp W-C 1 Capsule) 1 capsule PO DAILY [facility] Nitroglycerin (Nitroglycerin (Inpatient Use) 0.4 Mg Tab.Subl) 0.4 mg SUBLINGUAL Q5M PRN PRN Reason: CARDIAC/CHEST PAIN Ondansetron HCl (Ondansetron 4 Mg/2 Ml Vial) 4 mg IV Q8H PRN PRN PRN Reason: NAUSEA/VOMITING Pantoprazole Sodium (Pantoprazole Sodium 40 Mg Tablet) 40 mg PO DAILY [facility] Pyridostigmine [place] (Pyridostigmine [place] 60 Mg Tablet) 60 mg PO DAILY [facility] Sodium Chloride (0.9% Saline Lock 10 Ml Syringe) 10 - 40 ml IV UD PRN PRN Reason: SALINE FLUSH STROKE Vital Signs/Narrative: Vital Signs Temp Pulse Resp BP Pulse Ox 02/23/20 07:00 99.2 F H 73 18 130/81 H 96 02/23/20 06:00 99.4 F H 68 17 108/70 92 02/23/20 05:00 100 F H 67 16 118/77 98 02/23/20 04:00 100.5 F H 69 18 110/74 97 Medical Necessity - Tobacco Use Smoking Status: Current every day smoker Tobacco Use: Cigarettes Assessment/Plan All Active Problems (Last Reviewed 08/01/19 @ 12:44 by Dee Mukherjee) Foot ulcer, left (Acute) Left leg and foot cellulitis (Acute) Pneumonia (Acute) Hypoxia (Acute) Hypoglycemia (Acute) 1. Acute respiratory failure secondary to acute bilateral pneumonia/ acute COPD exacerbation Chest x-ray showed multilobular airspace disease/pleural effusion Urinary Legionella and streptococcal antigen negative COVID-19 rapid antigen test is negative Continue on IV vancomycin and Zosyn 2. Acute metabolic encephalopathy currently #1, patient currently is intubated 3. Acute COPD exacerbation secondary to bilateral pneumonia Respiratory panel is negative 4. Recurrent hypoglycemia, blood sugars are improved, patient insulin pump has been switched off May need to be resumed as patient is being fed. Patient is a type I diabetic 4. Elevated LFTs, improving 5. Severe malnutrition, BMI 17.3, currently tube feeds 5. ESRD on hemodialysis - 6. Myasthenia gravis, continue on Pyridostigmine 7. Severe PAD status post left BKA, continue on aspirin, Plavix 8. Hypertension, controlled, continue metoprolol Continue to monitor vitals 9. Thrombocytopenia, likely related to sepsis, platelet count is 72 We will hold off on DVT chemoprophylaxis Repeat blood work in am 10. DVT PPx- SCDs Inpatient E&M: [id number] [facility] L[facility]
--- NOTE | 2020-02-23 08:01 | CON.PCM_ITS ---
Problem List (1) Diabetic peripheral neuropathy Status: Chronic (2) Foot ulcer, left Status: Acute (3) Left leg and foot cellulitis Status: Acute (4) ESRD (end stage renal disease) Status: Chronic (5) PAD (peripheral artery disease) Status: Chronic (6) Chronic renal failure, stage 4 (severe) Status: Chronic (7) Gastroparesis due to DM Status: Chronic (8) HTN (hypertension) Status: Chronic Qualifiers: Hypertension type: essential hypertension Qualified Code(s): I10 - Essential (primary) hypertension (9) Diabetes type I Status: Chronic Qualifiers: Diabetes mellitus complication status: with unspecified complications (10) Myasthenia gravis Status: Chronic Reason for Consult Date of Consultation: 02/23/20 Reason for Consultation: Respiratory failure History of Present Illness: The patient is a 44 year old M, with past medical history listed below, who presented [facility] 02/22/2020 secondary to hypoglycemic episode. Patient reportedly had an alarming insulin pump and blood sugar was noted to be 41. Patient did report eating breakfast on the day of presentation, but overall has felt weak. Patient denied any nausea or vomiting. Patient has end-stage renal disease and has reported minimal urination, and denies any chest pain, shortness of breath or fevers. On arrival to the ER, patient was noted to be slightly hypoxic at 89% on room air. Laboratory work-up showed initial BG T of 69, but chemistry showed a glucose of 29. Patient also had elevated liver function studies. Hemoglobin was noted to be 12.5. Chest x-ray showed increasing bilateral pleural effusions. Covid testing was negative. Patient was given 1 amp of D50 and insulin pump was discontinued. Patient was placed on 2 L nasal cannula, Rocephin, Zithromax and admitted to the floor for further evaluation. Rapid response was called on 02/22/2020 at 1650 hrs. Patient was noted to be hypotensive at 75/50 and progressively lethargic on dialysis. ABG showed a pH of 7.08, PCO2 of 91.2 and a PO2 of 57.4. Patient was intubated and moved to the intensive care unit for further evaluation. Patient was increased to Vanco and Zosyn for antibiotic coverage. This morning, patient is on minimal vent settings. However, when patient was attempted on spontaneous awakening trial he was apneic, so this was not continued initially. Patient would open his eyes, but is not following commands on my evaluation. No review of systems could be obtained secondary to intubation. Patient has not required any pressors.Blood sugars have been acceptable since being on the ventilator. Past Medical History Past Medical History (Chronic Problems): Chronic Problems (Last Reviewed 08/01/19 @ 12:44 by Dee Mukherjee) Diabetic peripheral neuropathy (Chronic) ESRD (end stage renal disease) (Chronic) PAD (peripheral artery disease) (Chronic) Chronic renal failure, stage 4 (severe) (Chronic) Gastroparesis due to DM (Chronic) IBS (irritable bowel syndrome) (Chronic) HTN (hypertension) (Chronic) Diabetes type I (Chronic) Myasthenia gravis (Chronic) Medical History: Medical History (Last Reviewed 08/01/19 @ 12:44 by Dee Mukherjee) Chronic renal failure, stage 4 (severe) (Chronic) N18.4 Gastroparesis due to DM (Chronic) E11.43, K31.84 Cellulitis of right leg (Inactive) L03.115 IBS (irritable bowel syndrome) (Chronic) HTN (hypertension) (Chronic) I10 Diabetes type I (Chronic) Myasthenia gravis (Chronic) G70.00 Allergies levofloxacin [From Levaquin] Allergy (Verified 02/22/20 09:13) Pain in joints lisinopril Allergy (Verified 02/22/20 09:13) Angioedema losartan Allergy (Verified 02/22/20 09:13) Angioedema metoclopramide HCl [From Reglan] Allergy (Verified 02/22/20 09:13) Hives Home Medications: Ambulatory Orders Medication Instructions Recorded Amitriptyline HCl 2 tab PO QHS 02/14/20 Amlodipine Besylate [Norvasc] 10 mg PO QHS 02/14/20 Aspirin [Aspirin, Baby] 81 mg PO DAILY@0800 02/14/20 Calcium Acetate 1 cap PO TIDCM 02/14/20 Cholestyramine (with Sugar) 4 gm PO BID 02/14/20 [Questran Packet] Clopidogrel Bisulfate [Plavix] 75 mg PO DAILY 02/14/20 Furosemide [Lasix] 2 tab PO BID 02/14/20 Humalog 02/14/20 Levothyroxine [Synthroid] 50 mcg PO DAILY 02/14/20 Metoprolol Tartrate [Lopressor] 200 mg PO BID 02/14/20 Montelukast Sodium [Singulair] 10 mg PO QHS 02/14/20 Pregabalin [Lyrica] 75 mg PO BID 02/14/20 Venlafaxine XR [Effexor Xr] 150 mg PO DAILY 02/14/20 Bupropion HCl [Wellbutrin Xl] 150 mg PO BID 02/22/20 Cyclobenzaprine HCl 5 mg PO TID PRN 02/22/20 Folic Acid/Vit B Complex and C 0.8 mg PO DAILY 02/22/20 [Renal-Alessandro Tablet] Insulin Glargine [Lantus (BKC)] units SC DAILY PRN PRN 02/22/20 Pantoprazole Sodium [Protonix] 40 mg PO DAILY 02/22/20 Pyridostigmine [place] [Mestinon] 60 mg PO DAILY 02/22/20 Triphrocaps 1 mg PO DAILY 02/22/20 Surgical History: Surgical History (Last Reviewed 08/01/19 @ 12:44 by Dee Mukherjee) S/P thymectomy Z90.89 Status post creation of arteriovenous fistula Onset Date: ~04/2019 Z98.890 Status post laparoscopic cholecystectomy Z90.49 Surgical History: - - Thymectomy, cholecystectomy, teeth resection. Psychiatric History: No pertinent psych hx Lives: With Family Smoking Status: Current every day smoker Tobacco Use: Cigarettes Alcohol: None Drugs: None - *Family History Maternal Family History: Family History (Last Reviewed 08/01/19 @ 12:44 by Dee Mukherjee) Father Cancer Hypertension Mother Thyroid disorder History Items: - Paternal Family History: Family History (Last Reviewed 08/01/19 @ 12:44 by Dee Mukherjee) Father Cancer Hypertension Mother Thyroid disorder History Items: Cancer, Hypertension, - Review of Systems Unable to obtain accurate/complete ROS d/t: Intubated and sedated Patient Problems: Active and Suspected Problems (Last Reviewed 08/01/19 @ 12:44 by Dee Mukherjee) Pneumonia (Acute) Hypoxia (Acute) Hypoglycemia (Acute) Objective: Chest x-rays were personally reviewed. Patient has support devices in appropriate position. Bilateral pleural effusions with pulmonary edema noted on post intubation chest x-ray. Patient's last echocardiogram was completed in September 2019 showing an EF of 55% with RVSP of 34 mmHg. No significant valvular abnormalities were appreciated. Patient does have a normal pulmonary function test from 2013. - Physical Exam Vitals/I&O's: Vital Signs Temp Pulse Resp BP Pulse Ox 37.3 C H 74 18 130/81 H 97 02/23/20 07:00 02/23/20 07:33 02/23/20 07:33 02/23/20 07:00 02/23/20 07:33 Oxygen Flow Rate (L/min) 6 Oxygen Delivery Method Mechanical Ventilator Weight: 48.5 kg Body Mass Index (BMI) 17.1 Finger Stick Blood Glucose 205 Intake and Output for Last 24 Hours 02/21/20 02/22/20 02/23/20 23:59 23:59 23:59 Intake Total 305 / 305 Output Total 1750 / 1760 Balance -1445 / -1455 - General: - - Intubated and sedated. Cachectic. Good vent synchrony. HEENT: Atraumatic, PERRLA, EOMI, Normocephalic, - - No scleral icterus or injection noted Oral: No Gingival or Mucosal Lesions/ Ulcerations, Dry Mucosa Neck: Supple, No JVD, No Nodes, Trachea Midline Lungs: No rhonchi, No wheeze, No rales, Diminished Cardiovascular: Regular rate, Regular Rhythm, Normal S1, Normal S2, No murmurs, No rub noted, No Gallop Abdomen: Bowel Sounds Present, Soft, Non Tender, Non-Distended Extremities: No cyanosis, No edema, Capillary Refill Less than 3 Seconds, Clubbing Skin: No rashes Musculoskeletal: No Tenderness to Palpation of Joints or Extremities Lymphatic: No Cervical, Supraclavicular, or Inguinal Adenopathy Neurological: Cranial nerves II-XII grossly intact, Neuro grossly intact, Motor Exam 5/5 strength throughout Psych/Mental Status: Flat Affect Microbiology Past 72 Hours 02/22/20 18:35 Urine Catheter - Catheter Streptococcus pneumoniae Antigen (M - Final 02/22/20 18:35 Urine Catheter - [place] Legionella Antigen - Final 02/22/20 15:37 Mucosa - Nasopharyngeal Respiratory Panel (PCR) - Final 02/22/20 11:50 Mucosa - Nose SARS-CoV-2 Antigen (Rapid) - Final Laboratory Results 02/22/20 09:09: POC Glucose 69 L 02/22/20 09:10: WBC 9.7, RBC 4.60, Hgb 12.5 L, Hct 39.4 L, MCV 85.7, MCH 27.2, MCHC 31.7 L D, RDW Std Deviation 52.1 H, RDW Coeff of Fidel 17.0 H, Plt Count 127 L, MPV 14.2 H, Immature Gran % (Auto) 0.500, Neut % (Auto) 82.4 H, Lymph % (Auto) 10.2 L, [place] % (Auto) 6.4, Eos % (Auto) 0.3, Baso % (Auto) 0.2, Absolute Neuts (auto) 8.0 H, Absolute Lymphs (auto) 0.98, Nucleated RBC % 0.2, Platelet Estimate SLT DEC, Plt Morphology Comment LARGE 02/22/20 09:10: Sodium 138, Potassium 4.5, Chloride 107, Carbon Dioxide 28.0, Anion Gap 3 L, BUN 20 H, Creatinine 2.98 H, Estim Creat Clear Calc 23.25, Est GFR (MDRD) Af Amer 29 L, Est GFR (MDRD) Non-Af 24 L, BUN/Creatinine Ratio 6.7 L, Glucose 29 L*, Calcium 7.2 L, Total Bilirubin 0.30, AST 33, ALT 82 H, Alkaline Phosphatase 561 H, Total Protein 6.0 L, Albumin 1.7 L, Globulin 4.3 H, Albumin/Globulin Ratio 0.4 L 02/22/20 09:10: Phosphorus 3.3 02/22/20 10:18: POC Glucose 210 H 02/22/20 10:54: POC Glucose 53 L 02/22/20 11:48: POC Glucose 108 02/22/20 12:43: POC Glucose 205 H 02/22/20 13:47: Lactic Acid 1.3 02/22/20 13:47: PT 16.8 H, INR 1.4 02/22/20 14:19: Ammonia 29.0 02/22/20 14:37: POC Glucose 67 L 02/22/20 16:06: POC Glucose 166 H 02/22/20 16:47: POC Glucose 219 H 02/22/20 17:03: Specimen Type ART, Sample Site R Radial, pH 7.07 L*, Bicarbonate Actual 27.8 H, Total CO2 31, Base Excess -2, O2 Saturation 72 L, O2 % 100, ABG pCO2 95.6 H*, ABG pO2 55 L, Marco A Test Positive, O2 Delivery Device NRB 02/22/20 20:17: Specimen Type DANITA, Sample Site R Radial, VBG pH 7.40, VBG pO2 48 H, VBG HCO3 25, VBG Total CO2 27, VBG O2 Sat (Calc) 83 H, VBG Base Excess 1, POC Mix VBG pCO2 Pt Tmp 40.8 L, O2 Delivery Device Adult Vent, POC PEEP 5 02/22/20 20:24: POC Glucose 213 H 02/23/20 05:05: WBC 6.2, RBC 4.26 L, Hgb 11.5 L, Hct 36.2 L, MCV 85.0, MCH 27.0, MCHC 31.8 L, RDW Std Deviation 52.5 H, RDW Coeff of Fidel 17.2 H, Plt Count 72 L, Immature Gran % (Auto) 0.600, Neut % (Auto) 92.9 H, Lymph % (Auto) 3.7 L, [place] % (Auto) 2.8, Eos % (Auto) 0.0, Baso % (Auto) 0.0, Absolute Neuts (auto) 5.7, Absolute Lymphs (auto) 0.23 L, Nucleated RBC % 0, Platelet Estimate MOD DEC 02/23/20 05:05: Sodium 137, Potassium 4.1, Chloride 103, Carbon Dioxide 21.0, Anion Gap 13, BUN 24 H, Creatinine 2.99 H, Estim Creat Clear Calc 21.23, Est GFR (MDRD) Af Amer 29 L, Est GFR (MDRD) Non-Af 24 L, BUN/Creatinine Ratio 8.0 L, Glucose 124 H, Calcium 7.1 L, Total Bilirubin 0.30, AST 26, ALT 63 H, Alkaline Phosphatase 521 H, Total Protein 5.5 L, Albumin 1.6 L, Globulin 3.9, Albumin/Globulin Ratio 0.4 L 02/23/20 05:13: POC Glucose 123 H Current Medications Acetaminophen (Acetaminophen 650 Mg/20 Ml Udc) 650 mg GT Q6H PRN PRN PRN Reason: Pain Score 1-10/Temp > 100.7 F Albuterol Sulfate (Albuterol 2.5 Mg/3 Ml Vial.Neb.) 2.5 mg INHALATION Q2H PRN PRN PRN Reason: Shortness of Breath/Wheezing Albuterol/Ipratropium (Ipratropium/Albuterol Sulfate 3 Ml Ampul.Neb) 3 ml INHALATION Q4HWA.RT [facility] Last Admin: 02/23/20 07:33 Dose: 3 ml Documented by: Amitriptyline HCl (Amitriptyline 10 Mg Tablet) 20 mg PO QHS [facility] Last Admin: 02/22/20 21:07 Dose: 20 mg Documented by: Aspirin (Aspirin 81 Mg Tab.Chew) 81 mg PO DAILY@0800 [facility] Bupropion HCl (Bupropion (Sr) 150 Mg Tablet.Sa) 150 mg PO BID [facility] Last Admin: 02/22/20 21:08 Dose: 150 mg Documented by: Calcium Acetate (Calcium Acetate 667 Mg Capsule) 667 mg PO TIDCM [facility] Last Admin: 02/22/20 18:05 Dose: Not Given Documented by: Cholestyramine Resin (Cholestyramine/Sucrose 4 Gm/Packet) 4 gm PO BIDCM [facility] Last Admin: 02/22/20 18:05 Dose: Not Given Documented by: Clopidogrel Bisulfate (Clopidogrel Bisulfate 75 Mg Tablet) 75 mg PO DAILY [facility] Glucagon (Glucagon 1 Mg/Ml Syringe) 1 mg IM .X1 PRN PRN Reason: Hypoglycemia Sodium Chloride () 250 mls @ 15 mls/hr IV .[id number] PRN PRN Reason: Saline Flush Sodium Chloride () 250 mls @ 15 mls/hr IV .[id number] PRN PRN Reason: Additional IVPB Infusion Vancomycin IV Pharmacy to Dose (1 ea/ Sodium Chloride) 500 mls @ 250 mls/hr IV PRN PRN; Protocol PRN Reason: Rx to Dose Fentanyl Citrate 1,000 mcg/ (Sodium Chloride) 100 mls @ 5 mls/hr CONT INF .Q20H [facility]; Protocol Last Admin: 02/23/20 01:16 Dose: 50 mcg/hr, 5 mls/hr Documented by: Piperacillin Sod/Tazobactam (Sod 3.375 gm/ Sodium Chloride) 50 mls @ 12.5 mls/hr IV Q12 [facility] Insulin Human Lispro (Insulin Lispro 100 Unit/Ml Insuln.Pen) 0 unit SC ACHS [facility]; Protocol Last Admin: 02/22/20 21:30 Dose: 1 u Documented by: Levothyroxine Sodium (Levothyroxine 50 Mcg Tablet) 50 mcg PO DAILY@0600 [facility] Methylprednisolone (Methylprednisolone 40 Mg/Ml Vial) 40 mg IV Q8 [facility] Last Admin: 02/22/20 21:07 Dose: 40 mg Documented by: Metoprolol Tartrate (Metoprolol Tartrate 100 Mg Tablet) 100 mg PO BID [facility] Last Admin: 02/22/20 21:07 Dose: 100 mg Documented by: Montelukast Sodium (Montelukast 10 Mg Tablet) 10 mg PO QHS [facility] Last Admin: 02/22/20 21:08 Dose: 10 mg Documented by: Multivit/Ca Carb/B Cmplx/FA/Prenat (Folic Acid/Vitamin B Comp W-C 1 Capsule) 1 capsule PO DAILY [facility] Nitroglycerin (Nitroglycerin (Inpatient Use) 0.4 Mg Tab.Subl) 0.4 mg SUBLINGUAL Q5M PRN PRN Reason: CARDIAC/CHEST PAIN Ondansetron HCl (Ondansetron 4 Mg/2 Ml Vial) 4 mg IV Q8H PRN PRN PRN Reason: NAUSEA/VOMITING Pantoprazole Sodium (Pantoprazole Sodium 40 Mg Tablet) 40 mg PO DAILY [facility] Pyridostigmine [place] (Pyridostigmine [place] 60 Mg Tablet) 60 mg PO DAILY [facility] Sodium Chloride (0.9% Saline Lock 10 Ml Syringe) 10 - 40 ml IV UD PRN PRN Reason: SALINE FLUSH Clinical Impression(s) from Imaging Studies Chest X-Ray 02/22/20 11:36 IMPRESSION: Marked progression of pulmonary opacities and increasing pleural effusions since the prior study. Findings are compatible with extensive pneumonia. Electronically Signed: Riley Diaz MD at 12:19 EST , Service support , Chest X-Ray 02/22/20 17:20 IMPRESSION: 1. Satisfactory position of endotracheal and enteric tubes. 2. Multilobar airspace disease and pleural effusions, the latter mildly decreased. Electronically Signed: Guilherme Mazariegos MD ([place]) at 17:56 EST , Service support , KUB X-Ray 02/22/20 17:20 IMPRESSION: 1. Satisfactory position of enteric tube. Relative lucency of the upper abdomen could be artifactual although pneumoperitoneum cannot be excluded. 2. Bilateral airspace disease and pleural effusions. Electronically Signed: Guilherme Mazariegos MD ([place]) at 17:53 EST , Service support , Assessment/Plan Active and Suspected Problems (Last Reviewed 08/01/19 @ 12:44 by Dee Mukherjee) Pneumonia (Acute) Hypoxia (Acute) Hypoglycemia (Acute) RECOMMENDATIONS: 1. Continue to hold sedation with possible spontaneous breathing trial later this morning 2. Monitor blood sugars closely 3. Possibly start tube feeds if fails spontaneous breathing trial today 4. Defer to nephrology on timing of dialysis 5. Possible thoracentesis as an outpatient IMPRESSIONS: 1. Acute combined respiratory failure secondary to hypoglycemia and possible pneumonia Pulmonary function testing was within normal limits in 2012. Patient does have end-stage renal disease, so medication accumulation would be a concern. Patient is on empiric antibiotics at this time. Patient was apneic this morning. Differential would include overventilation or possible retention of metabolites. We will continue to hold sedation and reattempt spontaneous breathing trial. If patient continues to be apneic, ABG to evaluate for overventilation would be appropriate. Patient does have pleural effusions and pulmonary edema on chest x-ray, but oxygenation appears to be well controlled at this time. 2. Hypoglycemia secondary to possible pump failure/gastroparesis/end-stage renal disease Insulin pump has been discontinued. Blood sugars have been controlled to this point. We will continue to monitor closely. Patient does have an element of gastroparesis, which will complicate feeding regimen. Will attempt to extubate and see if this can be managed by an oral route prior to initiation of tube feeds. Defer to nephrology on timing of hemodialysis. 3. Cachexia/PAD/hypertension/acute metabolic encephalopathy/pleural effusions Complicates care, management, recovery and prognosis. Will attempt to address hypercarbia and other electrolytes. Patient is cachectic with an albumin of 1.6. Dietitian has been consulted. TIME: 33 minutes critical care time spent addressing patient's acute combined respiratory failure, hypoglycemia, review of all data and collaboration with care team (6:45 AM to 7:45 AM) [id number]: [id number] Critical care first hour
[2020-02-23] MEDS: Levothyroxine 50 MCG Tablet PO (08:22)
[2020-02-23] MEDS: Acetaminophen 650 MG/20 ML UDC GT ×2 (08:42→18:11)
[2020-02-23] MEDS: Cholestyramine/Sucrose 4 GM/PACKET PO ×2 (08:43→16:12)
[2020-02-23] MEDS: Clopidogrel Bisulfate 75 MG Tablet PO (08:44)
[2020-02-23] MEDS: Calcium Acetate 667 MG Capsule PO (08:44)
[2020-02-23] MEDS: Aspirin 81 MG TAB.CHEW PO (08:44)
[2020-02-23] MEDS: Pantoprazole Sodium 40 MG Tablet PO (08:44)
[2020-02-23] MEDS: Metoprolol Tartrate 100 MG Tablet PO ×2 (08:45→21:11)
[2020-02-23] MEDS: Folic Acid/Vitamin B Comp W-C 1 Capsule 1 CAP PO (08:45)
[2020-02-23] MEDS: buPROPion (SR) 150 MG Tablet.SA PO ×2 (08:46→21:12)
[2020-02-23] MEDS: Pyridostigmine Bromide 60 MG Tablet PO (08:46)
[2020-02-23 09:30] LABS: Allen Test Positive; Base Excess -6 mmol/L (-2 to +2); Bicarbonate 19.7 mmol/L (22-26); Blood Gas Specimen Type ART; FI02 40; Mode CPAP/PS; O2 Delivery Device Adult Vent; PEEP 5; PO2 60 mmHG (75-100); PS 5; SITE R Radial; SO2 89 % (95-99); Total Carbon Dioxide 21 mmol/L; pCO2 37.1 mmHg (35-45); pH 7.33 (7.35-7.45)
--- NOTE | 2020-02-23 10:27 | PCM.NTREPORT ---
Nutrition Therapy Report - History Nutrition Services has been consulted to:: Manage enteral nutrition Current diet / nutrition support order:: NPO - Anthropometric Measurements Height:: 5 ft 6 in Weight:: 48.5 kg Body Mass Index (BMI):: 17.2 - Relevant Labs Relevant Labs:: RBC 4.26 M/mm3 (4.6-6.2) L 02/23/20 05:05 Hgb 11.5 g/dL (13.0-16.5) L 02/23/20 05:05 Hct 36.2 % (40-54) L 02/23/20 05:05 MCHC 31.8 g/dL (32-36) L 02/23/20 05:05 RDW Std Deviation 52.5 fl (35.1-43.9) H 02/23/20 05:05 RDW Coeff of Fidel 17.2 % (11.6-14.6) H 02/23/20 05:05 Plt Count 72 K/mm3 (150-450) L 02/23/20 05:05 MPV 14.2 fl (6.2-12.0) H 02/22/20 09:10 Neut % (Auto) 92.9 % (47-70) H 02/23/20 05:05 Lymph % (Auto) 3.7 % (19-41) L 02/23/20 05:05 Absolute Neuts (auto) 8.0 X10^3/uL (2.0-7.7) H 02/22/20 09:10 Absolute Lymphs (auto) 0.23 X10^3/uL (0.83-4.51) L 02/23/20 05:05 PT 16.8 SECONDS (11.7-14.9) H 02/22/20 13:47 Anion Gap 3 (5-15) L 02/22/20 09:10 BUN 24 mg/dL (7-18) H 02/23/20 05:05 Creatinine 2.99 mg/dL (0.70-1.30) H 02/23/20 05:05 Est GFR (MDRD) Af Amer 29 mL/min (>60) L 02/23/20 05:05 Est GFR (MDRD) Non-Af 24 mL/min (>60) L 02/23/20 05:05 BUN/Creatinine Ratio 8.0 RATIO (10-20) L 02/23/20 05:05 Glucose 124 mg/dL (74-106) H 02/23/20 05:05 Calcium 7.1 mg/dL (8.5-10.1) L 02/23/20 05:05 ALT 63 U/L (16-61) H 02/23/20 05:05 Alkaline Phosphatase 521 U/L (45-117) H 02/23/20 05:05 Total Protein 5.5 g/dL (6.4-8.2) L 02/23/20 05:05 Albumin 1.6 g/dL (3.2-5.0) L 02/23/20 05:05 Globulin 4.3 g/dL (2.2-4.2) H 02/22/20 09:10 Albumin/Globulin Ratio 0.4 RATIO (0.9-2.4) L 02/23/20 05:05 - Assessment Food / Nutrition-Related History:: Discussed in ICU rounds. Pt intubated w/ OG in place. TF to be intiated this day. Pt w/ hx gastroparesis. Dialysis yesterday w/ 1600 ml removed. Has insulin pump--removed at this time. CBW 106.9#; wt hx per EMR 10/23/19 133.4# however per EMR pt wt increased at that time d/t no dialysis x 5 days and non-pitting LLE edema; UBW reported by pt previous admin 115-120#-- suspect wt loss 13.1#/11% x 4 months (severe). Per nutrition screen pt reported unintentional wt loss; reported no to eating poorly d/t decreased appetite. Upon visual observation pt w/ mild temporal depression, mild orbital bone depression, moderate clavicle bone protrusion. - Nutrition Diagnosis Problem / Etiology / Signs & Symptoms (PES):: Inadequate oral intake RT respiratory distress resulting in intubation AEB NPO status w/ OG in place Evidence of Malnutrition Exists:: No - Nutrition Intervention Nutrition Prescription:: Estimated nutrient needs: 7684-1672 calories, 55-65 grams protein. 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 Mild-Mod s/s of physical muscle/fat wasting at this time. Nutrition support ordered as / adjusted to:: Rec Vital AF 1.2 via OG-- intiate TF at 10 mL per hour and increase by 10 ml every 12 hours until goal rate of 65 ml/hr achieved. Provide 75 mL H2O flush every 4 hours. TF at goal rate will provide 1872 calories, 117 grams protein, 1715 mL total fluid per day. Nutrition education provided?: No - MNT Monitoring Further MNT monitoring and evaluation required?: Yes MNT Follow-up in:: 3-5 days - Please call RDN at ext [phone] as needed.
[2020-02-23] MEDS: Vital AF 1.2 Cal Liquid 1,000 ML 10 ML GT (11:00)
[2020-02-23] MEDS: Insulin Lispro 100 UNIT/ML INSULN.PEN SC ×2 (16:14→22:30)
[2020-02-23 20:41] LABS: Bedside Glucose 190 mg/dL (70-110)
[2020-02-23] MEDS: Amitriptyline 10 MG Tablet 20 MG PO (21:11)
[2020-02-23] MEDS: 0.9% Saline Lock 10 ML Syringe IV (21:13)
[2020-02-23] MEDS: Montelukast 10 MG Tablet PO (21:50)
[2020-02-24] VITALS (35 sets, daily range): BP systolic 89–153; BP diastolic 66–98; PULSE 66–84; RESP 10–32; TEMP 36.5–37.1; O2SAT 88–99
[2020-02-24 00:06] LABS: Bedside Glucose 235 mg/dL (70-110)
[2020-02-24 04:46] LABS: Absolute Lymphocyte Count 0.72 X10^3/uL (0.83-4.51); Absolute Neutrophil Count 9.7 X10^3/uL (2.0-7.7); Basophil# 0.01 X10^3/uL; Basophil% 0.1 % (0-1); Eosinophil# 0.01 X10^3/uL; Eosinophils% 0.1 % (0-5); Hematocrit 37.8 % (40-54); Hemoglobin 11.6 g/dL (13.0-16.5); Lymphocyte # 0.72 X10^3/ul (4.0); Lymphocyte % 6.7 % (19-41); Mean Corp Hgb Conc 30.7 g/dL (32-36); Mean Corpuscular Hgb 26.9 pg (27.0-32.0); Mean Corpuscular Volume 87.5 fL (80-94); Monocyte# 0.27 X10^3/uL; Monocyte% 2.5 % (0-10); NRBC Flagged by Analyzer 0 % (0-5); Neutrophil # 9.72 X10^3/uL (2.7-7.7); Neutrophil % 89.9 % (47-70); Platelet Count 102 K/mm3 (150-450); RBC Distribution Width CV 17.8 % (11.6-14.6); RBC Distribution Width SD 55.7 fl (35.1-43.9); Red Blood Count 4.32 M/mm3 (4.6-6.2); White Blood Count 10.8 K/mm3 (4.4-11.0)
[2020-02-24 05:02] LABS: Albumin, Serum 1.5 g/dL (3.2-5.0); BUN 39 mg/dL (7-18); BUN/Creat Ratio 10.1 RATIO (10-20); Calcium,Total 7.2 mg/dL (8.5-10.1); Chloride 102 mmol/L (98-107); Creatinine, Serum 3.86 mg/dL (0.70-1.30); EST Glomerular Filtration Rate 18 mL/min (>60); Est Glom Filt Rate - Afr Amer 22 mL/min (>60); Estimated Creatinine Clearance 16.58 ml/min; Glucose 271 mg/dL (74-106); Phosphorus 6.3 mg/dL (2.5-4.9); Sodium Level 135 mmol/L (136-145)
[2020-02-24] MEDS: Levothyroxine 50 MCG Tablet PO (05:19)
[2020-02-24 06:30] LABS: Base Excess -15 mmol/L (-2 to +2); Bicarbonate 12.2 mmol/L (22-26); Blood Gas Specimen Type ART; FI02 25; Mode CPAP/PS; O2 Delivery Device Adult Vent; PEEP 5; PO2 69 mmHG (75-100); PS 5; SITE R Radial; SO2 91 % (95-99); Total Carbon Dioxide 13 mmol/L; pCO2 27.9 mmHg (35-45); pH 7.25 (7.35-7.45)
[2020-02-24] MEDS: Sodium Bicarbonate 8.4% 50 ML Syringe 50 MEQ IV (06:56)
[2020-02-24] MEDS: Ipratropium/Albuterol Sulfate 3 ML AMPUL.NEB INHALATION ×4 (07:24→18:44)
--- NOTE | 2020-02-24 07:31 | PCM.PN.INT ---
Subjective: Patient did well overnight. Blood sugars have been well controlled. Patient was able to pass a spontaneous breathing trial this morning. ABG afterwards showed significant metabolic acidosis with respiratory compensation. Patient was given an amp of bicarbonate and extubated. General: Alert, Cooperative, No apparent distress, - - Cachectic. Appears older than stated age. HEENT: Atraumatic, PERRLA, EOMI, Normocephalic, - - No scleral icterus or injection noted Oral: Moist Mucosa, No Gingival or Mucosal Lesions/ Ulcerations Neck: Supple, No JVD, No Nodes, Trachea Midline Lungs: No rhonchi, No wheeze, No rales, Diminished, - - Symmetric expansion. No dullness to percussion. Cardiovascular: Regular rate, Regular Rhythm, Normal S1, Normal S2, No murmurs, No rub noted, No Gallop Abdomen: Bowel Sounds Present, Soft, Non Tender, Non-Distended Extremities: No cyanosis, No edema, Capillary Refill Less than 3 Seconds Skin: - - No change from previous Musculoskeletal: No Tenderness to Palpation of Joints or Extremities Lymphatic: No Cervical, Supraclavicular, or Inguinal Adenopathy Neurological: Cranial nerves II-XII grossly intact, Neuro grossly intact, Motor Exam 5/5 strength throughout Psych/Mental Status: Appropriate, Flat Affect Vital Signs Temp Pulse Resp BP Pulse Ox 36.7 C 82 14 112/75 96 02/24/20 05:00 02/24/20 05:00 02/24/20 05:00 02/24/20 05:00 02/24/20 05:00 Oxygen Flow Rate (L/min) 6 Oxygen Delivery Method Mechanical Ventilator Weight: 48.6 kg Body Mass Index (BMI) 17.2 Finger Stick Blood Glucose 205 Intake and Output for Last 24 Hours 02/22/20 02/23/20 02/24/20 23:59 23:59 23:59 Intake Total 305 / 305 275.34 / 680.34 455 / 455 Output Total 1750 / 1760 80 / 95 15 / 15 Balance -1445 / -1455 195.34 / 585.34 440 / 440 Labs (Last 48 Hours) 02/22/20 02/22/20 02/22/20 09:09 09:10 09:10 WBC 9.7 RBC 4.60 Hgb 12.5 L Hct 39.4 L MCV 85.7 MCH 27.2 MCHC 31.7 L D RDW Std Deviation 52.1 H RDW Coeff of Fidel 17.0 H Plt Count 127 L MPV 14.2 H Immature Gran % (Auto) 0.500 Neut % (Auto) 82.4 H Lymph % (Auto) 10.2 L [place] % (Auto) 6.4 Eos % (Auto) 0.3 Baso % (Auto) 0.2 Absolute Neuts (auto) 8.0 H Absolute Lymphs (auto) 0.98 Nucleated RBC % 0.2 Platelet Estimate SLT DEC Plt Morphology Comment LARGE PT INR Specimen Type Sample Site pH Bicarbonate Actual Total CO2 Base Excess O2 Saturation O2 % ABG pCO2 ABG pO2 Marco A Test VBG pH VBG pO2 VBG HCO3 VBG Total CO2 VBG O2 Sat (Calc) VBG Base Excess POC Mix VBG pCO2 Pt Tmp O2 Delivery Device Vent Mode POC PEEP POC Pressure Suppt Sodium 138 Potassium 4.5 Chloride 107 Carbon Dioxide 28.0 Anion Gap 3 L BUN 20 H Creatinine 2.98 H Estim Creat Clear Calc 23.25 Est GFR (MDRD) Af Amer 29 L Est GFR (MDRD) Non-Af 24 L BUN/Creatinine Ratio 6.7 L Glucose 29 L* Lactic Acid Calcium 7.2 L Phosphorus Total Bilirubin 0.30 AST 33 ALT 82 H Alkaline Phosphatase 561 H Ammonia Total Protein 6.0 L Albumin 1.7 L Globulin 4.3 H Albumin/Globulin Ratio 0.4 L Hepatitis A IgM Ab Hep Bs Antigen Hep B Core IgM Ab Hepatitis C Ab (EIA) POC Glucose 69 L 02/22/20 02/22/20 02/22/20 09:10 10:18 10:54 WBC RBC Hgb Hct MCV MCH MCHC RDW Std Deviation RDW Coeff of Fidel Plt Count MPV Immature Gran % (Auto) Neut % (Auto) Lymph % (Auto) [place] % (Auto) Eos % (Auto) Baso % (Auto) Absolute Neuts (auto) Absolute Lymphs (auto) Nucleated RBC % Platelet Estimate Plt Morphology Comment PT INR Specimen Type Sample Site pH Bicarbonate Actual Total CO2 Base Excess O2 Saturation O2 % ABG pCO2 ABG pO2 Marco A Test VBG pH VBG pO2 VBG HCO3 VBG Total CO2 VBG O2 Sat (Calc) VBG Base Excess POC Mix VBG pCO2 Pt Tmp O2 Delivery Device Vent Mode POC PEEP POC Pressure Suppt Sodium Potassium Chloride Carbon Dioxide Anion Gap BUN Creatinine Estim Creat Clear Calc Est GFR (MDRD) Af Amer Est GFR (MDRD) Non-Af BUN/Creatinine Ratio Glucose Lactic Acid Calcium Phosphorus 3.3 Total Bilirubin AST ALT Alkaline Phosphatase Ammonia Total Protein Albumin Globulin Albumin/Globulin Ratio Hepatitis A IgM Ab Hep Bs Antigen Hep B Core IgM Ab Hepatitis C Ab (EIA) POC Glucose 210 H 53 L 02/22/20 02/22/20 02/22/20 11:48 12:43 13:47 WBC RBC Hgb Hct MCV MCH MCHC RDW Std Deviation RDW Coeff of Fidel Plt Count MPV Immature Gran % (Auto) Neut % (Auto) Lymph % (Auto) [place] % (Auto) Eos % (Auto) Baso % (Auto) Absolute Neuts (auto) Absolute Lymphs (auto) Nucleated RBC % Platelet Estimate Plt Morphology Comment PT INR Specimen Type Sample Site pH Bicarbonate Actual Total CO2 Base Excess O2 Saturation O2 % ABG pCO2 ABG pO2 Marco A Test VBG pH VBG pO2 VBG HCO3 VBG Total CO2 VBG O2 Sat (Calc) VBG Base Excess POC Mix VBG pCO2 Pt Tmp O2 Delivery Device Vent Mode POC PEEP POC Pressure Suppt Sodium Potassium Chloride Carbon Dioxide Anion Gap BUN Creatinine Estim Creat Clear Calc Est GFR (MDRD) Af Amer Est GFR (MDRD) Non-Af BUN/Creatinine Ratio Glucose Lactic Acid 1.3 Calcium Phosphorus Total Bilirubin AST ALT Alkaline Phosphatase Ammonia Total Protein Albumin Globulin Albumin/Globulin Ratio Hepatitis A IgM Ab Hep Bs Antigen Hep B Core IgM Ab Hepatitis C Ab (EIA) POC Glucose 108 205 H 02/22/20 02/22/20 02/22/20 13:47 14:19 14:37 WBC RBC Hgb Hct MCV MCH MCHC RDW Std Deviation RDW Coeff of Fidel Plt Count MPV Immature Gran % (Auto) Neut % (Auto) Lymph % (Auto) [place] % (Auto) Eos % (Auto) Baso % (Auto) Absolute Neuts (auto) Absolute Lymphs (auto) Nucleated RBC % Platelet Estimate Plt Morphology Comment PT 16.8 H INR 1.4 Specimen Type Sample Site pH Bicarbonate Actual Total CO2 Base Excess O2 Saturation O2 % ABG pCO2 ABG pO2 Marco A Test VBG pH VBG pO2 VBG HCO3 VBG Total CO2 VBG O2 Sat (Calc) VBG Base Excess POC Mix VBG pCO2 Pt Tmp O2 Delivery Device Vent Mode POC PEEP POC Pressure Suppt Sodium Potassium Chloride Carbon Dioxide Anion Gap BUN Creatinine Estim Creat Clear Calc Est GFR (MDRD) Af Amer Est GFR (MDRD) Non-Af BUN/Creatinine Ratio Glucose Lactic Acid Calcium Phosphorus Total Bilirubin AST ALT Alkaline Phosphatase Ammonia 29.0 Total Protein Albumin Globulin Albumin/Globulin Ratio Hepatitis A IgM Ab Hep Bs Antigen Hep B Core IgM Ab Hepatitis C Ab (EIA) POC Glucose 67 L 02/22/20 02/22/20 02/22/20 16:06 16:47 17:03 WBC RBC Hgb Hct MCV MCH MCHC RDW Std Deviation RDW Coeff of Fidel Plt Count MPV Immature Gran % (Auto) Neut % (Auto) Lymph % (Auto) [place] % (Auto) Eos % (Auto) Baso % (Auto) Absolute Neuts (auto) Absolute Lymphs (auto) Nucleated RBC % Platelet Estimate Plt Morphology Comment PT INR Specimen Type ART Sample Site R Radial pH 7.07 L* Bicarbonate Actual 27.8 H Total CO2 31 Base Excess -2 O2 Saturation 72 L O2 % 100 ABG pCO2 95.6 H* ABG pO2 55 L Marco A Test Positive VBG pH VBG pO2 VBG HCO3 VBG Total CO2 VBG O2 Sat (Calc) VBG Base Excess POC Mix VBG pCO2 Pt Tmp O2 Delivery Device NRB Vent Mode POC PEEP POC Pressure Suppt Sodium Potassium Chloride Carbon Dioxide Anion Gap BUN Creatinine Estim Creat Clear Calc Est GFR (MDRD) Af Amer Est GFR (MDRD) Non-Af BUN/Creatinine Ratio Glucose Lactic Acid Calcium Phosphorus Total Bilirubin AST ALT Alkaline Phosphatase Ammonia Total Protein Albumin Globulin Albumin/Globulin Ratio Hepatitis A IgM Ab Hep Bs Antigen Hep B Core IgM Ab Hepatitis C Ab (EIA) POC Glucose 166 H 219 H 02/22/20 02/22/20 02/23/20 20:17 20:24 05:05 WBC 6.2 RBC 4.26 L Hgb 11.5 L Hct 36.2 L MCV 85.0 MCH 27.0 MCHC 31.8 L RDW Std Deviation 52.5 H RDW Coeff of Fidel 17.2 H Plt Count 72 L MPV Immature Gran % (Auto) 0.600 Neut % (Auto) 92.9 H Lymph % (Auto) 3.7 L [place] % (Auto) 2.8 Eos % (Auto) 0.0 Baso % (Auto) 0.0 Absolute Neuts (auto) 5.7 Absolute Lymphs (auto) 0.23 L Nucleated RBC % 0 Platelet Estimate MOD DEC Plt Morphology Comment PT INR Specimen Type DANITA Sample Site R Radial pH Bicarbonate Actual Total CO2 Base Excess O2 Saturation O2 % ABG pCO2 ABG pO2 Marco A Test VBG pH 7.40 VBG pO2 48 H VBG HCO3 25 VBG Total CO2 27 VBG O2 Sat (Calc) 83 H VBG Base Excess 1 POC Mix VBG pCO2 Pt Tmp 40.8 L O2 Delivery Device Adult Vent Vent Mode POC PEEP 5 POC Pressure Suppt Sodium Potassium Chloride Carbon Dioxide Anion Gap BUN Creatinine Estim Creat Clear Calc Est GFR (MDRD) Af Amer Est GFR (MDRD) Non-Af BUN/Creatinine Ratio Glucose Lactic Acid Calcium Phosphorus Total Bilirubin AST ALT Alkaline Phosphatase Ammonia Total Protein Albumin Globulin Albumin/Globulin Ratio Hepatitis A IgM Ab Hep Bs Antigen Hep B Core IgM Ab Hepatitis C Ab (EIA) POC Glucose 213 H 02/23/20 02/23/20 02/23/20 05:05 05:13 09:23 WBC RBC Hgb Hct MCV MCH MCHC RDW Std Deviation RDW Coeff of Fidel Plt Count MPV Immature Gran % (Auto) Neut % (Auto) Lymph % (Auto) [place] % (Auto) Eos % (Auto) Baso % (Auto) Absolute Neuts (auto) Absolute Lymphs (auto) Nucleated RBC % Platelet Estimate Plt Morphology Comment PT INR Specimen Type ART Sample Site R Radial pH 7.33 L Bicarbonate Actual 19.7 L Total CO2 21 Base Excess -6 L O2 Saturation 89 L O2 % 40 ABG pCO2 37.1 ABG pO2 60 L Marco A Test Positive VBG pH VBG pO2 VBG HCO3 VBG Total CO2 VBG O2 Sat (Calc) VBG Base Excess POC Mix VBG pCO2 Pt Tmp O2 Delivery Device Adult Vent Vent Mode CPAP/PS POC PEEP 5 POC Pressure Suppt 5 Sodium 137 Potassium 4.1 Chloride 103 Carbon Dioxide 21.0 Anion Gap 13 BUN 24 H Creatinine 2.99 H Estim Creat Clear Calc 21.23 Est GFR (MDRD) Af Amer 29 L Est GFR (MDRD) Non-Af 24 L BUN/Creatinine Ratio 8.0 L Glucose 124 H Lactic Acid Calcium 7.1 L Phosphorus Total Bilirubin 0.30 AST 26 ALT 63 H Alkaline Phosphatase 521 H Ammonia Total Protein 5.5 L Albumin 1.6 L Globulin 3.9 Albumin/Globulin Ratio 0.4 L Hepatitis A IgM Ab Hep Bs Antigen Hep B Core IgM Ab Hepatitis C Ab (EIA) POC Glucose 123 H 02/23/20 02/23/20 02/24/20 20:30 23:55 04:30 WBC RBC Hgb Hct MCV MCH MCHC RDW Std Deviation RDW Coeff of Fidel Plt Count MPV Immature Gran % (Auto) Neut % (Auto) Lymph % (Auto) [place] % (Auto) Eos % (Auto) Baso % (Auto) Absolute Neuts (auto) Absolute Lymphs (auto) Nucleated RBC % Platelet Estimate Plt Morphology Comment PT INR Specimen Type Sample Site pH Bicarbonate Actual Total CO2 Base Excess O2 Saturation O2 % ABG pCO2 ABG pO2 Marco A Test VBG pH VBG pO2 VBG HCO3 VBG Total CO2 VBG O2 Sat (Calc) VBG Base Excess POC Mix VBG pCO2 Pt Tmp O2 Delivery Device Vent Mode POC PEEP POC Pressure Suppt Sodium Potassium Chloride Carbon Dioxide Anion Gap BUN Creatinine Estim Creat Clear Calc Est GFR (MDRD) Af Amer Est GFR (MDRD) Non-Af BUN/Creatinine Ratio Glucose Lactic Acid Calcium Phosphorus Total Bilirubin AST ALT Alkaline Phosphatase Ammonia Total Protein Albumin Globulin Albumin/Globulin Ratio Hepatitis A IgM Ab Pending Hep Bs Antigen Pending Hep B Core IgM Ab Pending Hepatitis C Ab (EIA) Pending POC Glucose 190 H 235 H 02/24/20 02/24/20 02/24/20 04:30 04:30 06:22 WBC 10.8 RBC 4.32 L Hgb 11.6 L Hct 37.8 L MCV 87.5 MCH 26.9 L MCHC 30.7 L RDW Std Deviation 55.7 H RDW Coeff of Fidel 17.8 H Plt Count 102 L MPV Immature Gran % (Auto) 0.700 Neut % (Auto) 89.9 H Lymph % (Auto) 6.7 L [place] % (Auto) 2.5 Eos % (Auto) 0.1 Baso % (Auto) 0.1 Absolute Neuts (auto) 9.7 H Absolute Lymphs (auto) 0.72 L Nucleated RBC % 0 Platelet Estimate Plt Morphology Comment PT INR Specimen Type ART Sample Site R Radial pH 7.25 L Bicarbonate Actual 12.2 L Total CO2 13 Base Excess -15 L O2 Saturation 91 L O2 % 25 ABG pCO2 27.9 L ABG pO2 69 L Marco A Test VBG pH VBG pO2 VBG HCO3 VBG Total CO2 VBG O2 Sat (Calc) VBG Base Excess POC Mix VBG pCO2 Pt Tmp O2 Delivery Device Adult Vent Vent Mode CPAP/PS POC PEEP 5 POC Pressure Suppt 5 Sodium 135 L Potassium 5.0 Chloride 102 Carbon Dioxide 13.0 L Anion Gap BUN 39 H Creatinine 3.86 H Estim Creat Clear Calc 16.58 Est GFR (MDRD) Af Amer 22 L Est GFR (MDRD) Non-Af 18 L BUN/Creatinine Ratio 10.1 Glucose 271 H Lactic Acid Calcium 7.2 L Phosphorus 6.3 H Total Bilirubin AST ALT Alkaline Phosphatase Ammonia Total Protein Albumin 1.5 L Globulin Albumin/Globulin Ratio Hepatitis A IgM Ab Hep Bs Antigen Hep B Core IgM Ab Hepatitis C Ab (EIA) POC Glucose Microbiology 02/22/20 18:35 Urine Catheter - Catheter Streptococcus pneumoniae Antigen (M - Final 02/22/20 18:35 Urine Catheter - Triana Legionella Antigen - Final 02/22/20 15:37 Mucosa - Nasopharyngeal Respiratory Panel (PCR) - Final 02/22/20 11:50 Mucosa - Nose SARS-CoV-2 Antigen (Rapid) - Final Medical Necessity - Tobacco Use Smoking Status: Current every day smoker Tobacco Use: Cigarettes Assessment/Plan All Active Problems (Last Reviewed 08/01/19 @ 12:44 by Dee Mukherjee) Foot ulcer, left (Acute) Left leg and foot cellulitis (Acute) Pneumonia (Acute) Hypoxia (Acute) Hypoglycemia (Acute) RECOMMENDATIONS: 1. Consider initiation of p.o. bicarbonate 2. Monitor blood sugars closely 3. Increase activity as tolerated 4. Defer to nephrology on timing of dialysis 5. Possible thoracentesis as an outpatient IMPRESSIONS: 1. Acute combined respiratory failure secondary to hypoglycemia and possible pneumonia Pulmonary function testing was within normal limits in 2013. Patient does have end-stage renal disease, so medication accumulation would be a concern. Patient is on empiric antibiotics at this time. Patient was apneic this morning. Differential would include overventilation or possible retention of metabolites. Patient able to pass a spontaneous breathing trial this morning, but did have significant acidosis from a metabolic standpoint. Patient was extubated, but would likely benefit from p.o. bicarbonate 2. Hypoglycemia secondary to possible pump failure/gastroparesis/end-stage renal disease Insulin pump has been discontinued. Blood sugars have been controlled to this point. We will continue to monitor closely. Patient does have an element of gastroparesis, which will complicate feeding regimen. Defer to nephrology on timing of hemodialysis. Patient can be initiated on p.o. diet once passes bedside swallow evaluation 3. Cachexia/PAD/hypertension/acute metabolic encephalopathy/pleural effusions Complicates care, management, recovery and prognosis. Will attempt to address hypercarbia and other electrolytes. Patient is cachectic with an albumin of 1.6. Dietitian has been consulted. TIME: 31 minutes critical care time spent addressing patient's acute combined respiratory failure, hypoglycemia, review of all data and collaboration with care team (6:30 AM to 7:30 AM) [phone] [id number] Critical care first hour
[2020-02-24 09:26] LABS: Bedside Glucose 334 mg/dL (70-110)
--- NOTE | 2020-02-24 09:51 | PCM.RX.CS ---
Consult Pharmacy has been consulted to manage selected antiobiotic: Vancomycin Type of Consult: Follow-up Suspected Infection: Pneumonia Prior Doses of Antibiotics Received/Current Regimen: 750mg iv x 1 on 02.22.20 Labs: Sodium 135 mmol/L (136-145) L 02/24/20 04:30 Potassium 5.0 mmol/L (3.5-5.1) 02/24/20 04:30 Chloride 102 mmol/L (98-107) 02/24/20 04:30 Carbon Dioxide 13.0 mmol/L (21.0-32.0) L 02/24/20 04:30 Anion Gap 13 (5-15) 02/23/20 05:05 BUN 39 mg/dL (7-18) H 02/24/20 04:30 Creatinine 3.86 mg/dL (0.70-1.30) H 02/24/20 04:30 Est GFR (MDRD) Af Amer 22 mL/min (>60) L 02/24/20 04:30 Est GFR (MDRD) Non-Af 18 mL/min (>60) L 02/24/20 04:30 BUN/Creatinine Ratio 10.1 RATIO (10-20) 02/24/20 04:30 Glucose 271 mg/dL (74-106) H 02/24/20 04:30 Microbiology: Microbiology 02/22/20 18:35 Urine Catheter - Catheter Streptococcus pneumoniae Antigen (M - Final 02/22/20 18:35 Urine Catheter - Triana Legionella Antigen - Final 02/22/20 15:37 Mucosa - Nasopharyngeal Respiratory Panel (PCR) - Final 02/22/20 11:50 Mucosa - Nose SARS-CoV-2 Antigen (Rapid) - Final Weight used for dosin.6 kg Estimated Creatinine Clearance: ~17ml/min Goal Trough: 15-20 mcg/mL Pharmacy Plan for Drug Dosing: Dialysis today 02.24.20. Have ordered 500mg iv x 1 to be given post dialysis session. Random level ordered for AM of 02.26.20 before next dialysis. Pharmacy Service will continue to monitor and adjust dosing as required. Follow-Up Labs: Trough Vancomycin - random 02.26.20 @0600
[2020-02-24] MEDS: Albumin Human 25% (100 mL) 25 GM/100 ML BAG IV (10:03)
[2020-02-24 10:53] LABS: Anion Gap 21 (5-15); BUN 41 mg/dL (7-18); BUN/Creat Ratio 10.1 RATIO (10-20); Calcium,Total 7.3 mg/dL (8.5-10.1); Chloride 103 mmol/L (98-107); Creatinine, Serum 4.07 mg/dL (0.70-1.30); EST Glomerular Filtration Rate 17 mL/min (>60); Est Glom Filt Rate - Afr Amer 21 mL/min (>60); Estimated Creatinine Clearance 15.76 ml/min; Glucose 321 mg/dL (74-106); Sodium Level 137 mmol/L (136-145)
[2020-02-24 10:58] LABS: Osmolality, Serum 321 mOsm/KG (275-295)
[2020-02-24 11:00] LABS: Hemoglobin A1c 6.6 % (3.8-5.6)
[2020-02-24 11:10] LABS: Bedside Glucose 216 mg/dL (70-110)
[2020-02-24] MEDS: Sodium Chloride 19.25 MEQ in Dextrose 10%-Water 250 ML 40 MEQ IV ×2 (12:03→18:26)
--- NOTE | 2020-02-24 12:53 | PN.RENAL_ITS ---
Patient Problems: Active and Suspected Problems (Last Reviewed 08/01/19 @ 12:44 by Dee Mukherjee) Foot ulcer, left (Acute) Left leg and foot cellulitis (Acute) Pneumonia (Acute) Hypoxia (Acute) Hypoglycemia (Acute) Subjective: seen on dialysis, extubated this morning. Somnolent on dialysis. UF as tolerated with iv albumin for low BP. - Physical Exam Vitals/I&O's: Vital Signs Temp Pulse Resp BP Pulse Ox 98.1 F 79 18 117/78 92 02/24/20 08:00 02/24/20 11:43 02/24/20 11:43 02/24/20 11:00 02/24/20 11:00 Oxygen Flow Rate (L/min) 3 Oxygen Delivery Method Nasal Cannula Weight: 48.6 kg Body Mass Index (BMI) 17.2 Finger Stick Blood Glucose 176 Intake and Output for Last 24 Hours 02/22/20 02/23/20 02/24/20 23:59 23:59 23:59 Intake Total 305 / 305 275.34 / 680.34 877.39 / 877.39 Output Total 1750 / 1760 80 / 95 Balance -1445 / -1455 195.34 / 585.34 862.39 / 862.39 General: Lethargic - arrousable Oral: Dry Mucosa Neck: No JVD Lungs: Clear to auscultation - anteriorly Cardiovascular: Regular rate Abdomen: Bowel Sounds Present, Soft, Non Tender, Non-Distended Extremities: Edema - mild RLE, BKA left Musculoskeletal: Cachexia, Muscle Wasting, - - left BKA Psych/Mental Status: - - somnolent, disoriented to time, states year is 2020 Microbiology Past 72 Hours 02/22/20 18:35 Urine Catheter - Catheter Streptococcus pneumoniae Antigen (M - Final 02/22/20 18:35 Urine Catheter - Triana Legionella Antigen - Final 02/22/20 15:37 Mucosa - Nasopharyngeal Respiratory Panel (PCR) - Final 02/22/20 11:50 Mucosa - Nose SARS-CoV-2 Antigen (Rapid) - Final Laboratory Results 02/23/20 20:30: POC Glucose 190 H 02/23/20 23:55: POC Glucose 235 H 02/24/20 04:30: Hepatitis A IgM Ab Pending, Hep Bs Antigen Pending, Hep B Core IgM Ab Pending, Hepatitis C Ab (EIA) Pending 02/24/20 04:30: Sodium 135 L, Potassium 5.0, Chloride 102, Carbon Dioxide 13.0 L , BUN 39 H, Creatinine 3.86 H, Estim Creat Clear Calc 16.58, Est GFR (MDRD) Af Amer 22 L, Est GFR (MDRD) Non-Af 18 L, BUN/Creatinine Ratio 10.1, Glucose 271 H, Calcium 7.2 L, Phosphorus 6.3 H, Albumin 1.5 L 02/24/20 04:30: WBC 10.8, RBC 4.32 L, Hgb 11.6 L, Hct 37.8 L, MCV 87.5, MCH 26.9 L, MCHC 30.7 L, RDW Std Deviation 55.7 H, RDW Coeff of Fidel 17.8 H, Plt Count 102 L, Immature Gran % (Auto) 0.700, Neut % (Auto) 89.9 H, Lymph % (Auto) 6.7 L, [place] % (Auto) 2.5, Eos % (Auto) 0.1, Baso % (Auto) 0.1, Absolute Neuts (auto) 9.7 H, Absolute Lymphs (auto) 0.72 L, Nucleated RBC % 0 02/24/20 06:22: Specimen Type ART, Sample Site R Radial, pH 7.25 L, Bicarbonate Actual 12.2 L, Total CO2 13, Base Excess -15 L, O2 Saturation 91 L, O2 % 25, ABG pCO2 27.9 L, ABG pO2 69 L, O2 Delivery Device Adult Vent, Vent Mode CPAP/PS, POC PEEP 5, POC Pressure Suppt 5 02/24/20 09:22: POC Glucose 334 H 02/24/20 09:30: Carbon Dioxide 13.0 L 02/24/20 09:30: Acetone Level LARGE H 02/24/20 09:30: Hemoglobin A1c 6.6 H 02/24/20 09:30: Serum Osmolality 321 H 02/24/20 09:30: Sodium 137, Potassium 5.0, Chloride 103, Carbon Dioxide 13.0 L, Anion Gap 21 H, BUN 41 H, Creatinine 4.07 H, Estim Creat Clear Calc 15.76, Est GFR (MDRD) Af Amer 21 L, Est GFR (MDRD) Non-Af 17 L, BUN/Creatinine Ratio 10.1, Glucose 321 H, Calcium 7.3 L 02/24/20 11:03: POC Glucose 216 H Current Medications Acetaminophen (Acetaminophen 650 Mg/20 Ml Udc) 650 mg GT Q6H PRN PRN PRN Reason: Pain Score 1-10/Temp > 100.7 F Last Admin: 02/23/20 18:11 Dose: 650 mg Documented by: Albuterol Sulfate (Albuterol 2.5 Mg/3 Ml Vial.Neb.) 2.5 mg INHALATION Q2H PRN PRN PRN Reason: Shortness of Breath/Wheezing Albuterol/Ipratropium (Ipratropium/Albuterol Sulfate 3 Ml Ampul.Neb) 3 ml INHALATION Q4HWA.RT [facility] Last Admin: 02/24/20 11:42 Dose: 3 ml Documented by: Amitriptyline HCl (Amitriptyline 10 Mg Tablet) 20 mg PO QHS [facility] Last Admin: 02/23/20 21:11 Dose: 20 mg Documented by: Aspirin (Aspirin 81 Mg Tab.Chew) 81 mg PO DAILY@0800 [facility] Last Admin: 02/23/20 08:44 Dose: 81 mg Documented by: Bupropion HCl (Bupropion (Sr) 150 Mg Tablet.Sa) 150 mg PO BID [facility] Last Admin: 02/23/20 21:12 Dose: 150 mg Documented by: Calcium Acetate (Calcium Acetate 667 Mg Capsule) 667 mg NG TIDCM [facility] Cholestyramine Resin (Cholestyramine/Sucrose 4 Gm/Packet) 4 gm PO BIDCM [facility] Last Admin: 02/24/20 11:47 Dose: Not Given Documented by: Clopidogrel Bisulfate (Clopidogrel Bisulfate 75 Mg Tablet) 75 mg PO DAILY [facility] Last Admin: 02/23/20 08:44 Dose: 75 mg Documented by: Dextrose (Dextrose 50%-Water 25 Gm/50 Ml Disp.Syrin) 0 gm IV X1 PRN; Protocol PRN Reason: HYPOGLYCEMIA Glucagon (Glucagon 1 Mg/Ml Syringe) 1 mg IM .X1 PRN PRN Reason: Hypoglycemia Sodium Chloride () 250 mls @ 15 mls/hr IV .[id number] PRN PRN Reason: Saline Flush Sodium Chloride () 250 mls @ 15 mls/hr IV .[id number] PRN PRN Reason: Additional IVPB Infusion Vancomycin IV Pharmacy to Dose (1 ea/ Sodium Chloride) 500 mls @ 250 mls/hr IV PRN PRN; Protocol PRN Reason: Rx to Dose Piperacillin Sod/Tazobactam (Sod 3.375 gm/ Sodium Chloride) 50 mls @ 12.5 mls/hr IV Q12 [facility] Last Infusion: 02/24/20 01:50 Dose: Infused Documented by: Insulin Human Lispro 100 unit/ (Sodium Chloride) 100 mls @ 4.86 mls/hr CONT INF .[id number] [facility]; Protocol Last Titration: 02/24/20 12:00 Dose: 0.05 units/kg/hr, 2.4 mls/hr Documented by: Vancomycin HCl () 500 mg in 100 mls @ 100 mls/hr IV X1 ONE Stop: 02/24/20 16:59 Sodium Chloride 19.25 meq/ (Dextrose) 254.8125 mls @ 40 mls/hr IV .[id number] [facility] Stop: 02/25/20 13:00 Last Admin: 02/24/20 12:03 Dose: 40 mls/hr Documented by: Levothyroxine Sodium (Levothyroxine 50 Mcg Tablet) 50 mcg PO DAILY@0600 [facility] Last Admin: 02/24/20 05:19 Dose: 50 mcg Documented by: Methylprednisolone (Methylprednisolone 40 Mg/Ml Vial) 40 mg IV Q8 [facility] Last Admin: 02/24/20 05:18 Dose: 40 mg Documented by: Metoprolol Tartrate (Metoprolol Tartrate 100 Mg Tablet) 100 mg PO BID [facility] Last Admin: 02/23/20 21:11 Dose: 100 mg Documented by: Montelukast Sodium (Montelukast 10 Mg Tablet) 10 mg PO QHS [facility] Last Admin: 02/23/20 21:50 Dose: 10 mg Documented by: Multivit/Ca Carb/B Cmplx/FA/Prenat (Folic Acid/Vitamin B Comp W-C 1 Capsule) 1 capsule PO DAILY [facility] Last Admin: 02/23/20 08:45 Dose: 1 capsule Documented by: Nitroglycerin (Nitroglycerin (Inpatient Use) 0.4 Mg Tab.Subl) 0.4 mg SUBLINGUAL Q5M PRN PRN Reason: CARDIAC/CHEST PAIN Ondansetron HCl (Ondansetron 4 Mg/2 Ml Vial) 4 mg IV Q8H PRN PRN PRN Reason: NAUSEA/VOMITING Pantoprazole Sodium (Pantoprazole Sodium 40 Mg Tablet) 40 mg PO DAILY [facility] Last Admin: 02/23/20 08:44 Dose: 40 mg Documented by: Pyridostigmine Burnett (Pyridostigmine Burnett 60 Mg Tablet) 60 mg PO DAILY [facility] Last Admin: 02/23/20 08:46 Dose: 60 mg Documented by: Sodium Chloride (0.9% Saline Lock 10 Ml Syringe) 10 - 40 ml IV UD PRN PRN Reason: SALINE FLUSH Last Admin: 02/23/20 21:13 Dose: 10 ml Documented by: Medical Necessity - Tobacco Use Smoking Status: Current every day smoker Tobacco Use: Cigarettes Assessment/Plan All Active Problems (Last Reviewed 08/01/19 @ 12:44 by Dee Mukherjee) Foot ulcer, left (Acute) Left leg and foot cellulitis (Acute) Pneumonia (Acute) Hypoxia (Acute) Hypoglycemia (Acute) 1. ESRD HD MWF. seen on dialysis. Attempt 3L fluid removal as tolerated. iv albumin x2. 2. Bilateral pleural effusion with alveolar infiltrates. UF on Satur and UF 3L today with HD. 3. Hypoglycemia D10W 4. DM type 1 with left BKA 5. HTN adjust BP medications as needed. 6. Bradycardia resolved 7. Protein calorie malnutrition add protein supplements. 8. Hyperphosphatemia resume binders 9. Metabolic acidosis due to DKA. Acetone large from today. Resume insulin drip DW hospitalist
[2020-02-24 13:16] LABS: Bedside Glucose 145 mg/dL (70-110)
[2020-02-24 13:16] LABS: Bedside Glucose 176 mg/dL (70-110)
--- NOTE | 2020-02-24 13:33 | DIALYSIS ---
HD x 3.5 hours complete. Tolerated tx well. Albumin given as ordered. UF of 2800ml. Used left arm access. [place] removed post tx and pressure applied x 10 minutes. Hemostasis achieved. Fresh gauze and tape applied. Positive thrill/bruit noted. Report was given to ERICH Corea.
[2020-02-24] MEDS: Pantoprazole Sodium 40 MG Tablet PO (13:44)
[2020-02-24] MEDS: Folic Acid/Vitamin B Comp W-C 1 Capsule 1 CAP PO (13:45)
[2020-02-24] MEDS: buPROPion (SR) 150 MG Tablet.SA PO (13:45)
[2020-02-24] MEDS: Clopidogrel Bisulfate 75 MG Tablet PO (13:45)
[2020-02-24] MEDS: Aspirin 81 MG TAB.CHEW PO (13:46)
[2020-02-24] MEDS: Pyridostigmine Bromide 60 MG Tablet PO (13:46)
[2020-02-24] MEDS: Metoprolol Tartrate 25 MG Tablet PO (13:48)
[2020-02-24 14:15] LABS: Bedside Glucose 160 mg/dL (70-110)
--- NOTE | 2020-02-24 14:23 | PN_ITS ---
Patient Problems: Active and Suspected Problems (Last Reviewed 08/01/19 @ 12:44 by Dee Mukherjee) Foot ulcer, left (Acute) Left leg and foot cellulitis (Acute) Pneumonia (Acute) Hypoxia (Acute) Hypoglycemia (Acute) Reason for Visit: Follow-up on respiratory failure/bilateral pneumonia Subjective: Patient was seen and examined. He was extubated this morning, 02/24/20. He complains of some discomfort in his throat. Denied any chest pain or shortness of breath. He is on 3 L of oxygen. Patient's insulin drip remains turned off. Records obtained from his recovery unit operator in the [facility] showed patient had problems with his insulin pump, he was supposed to have the pump turned off and reach out to [employer]. He was supposed to be on Lantus 10 units nightly while the pump was turned off as well as premeal insulin. Objective: Physical exam: General: Alert oriented x3, pale, not jaundiced, mildly dehydrated HEENT: Atraumatic, PERRLA, EOMI, Normocephalic Neck: Supple, No JVD, Negative Carotid Bruits Lungs: Diminished, Rales, Wheezes Cardiovascular: Regular rate, No murmurs Abdomen: Bowel Sounds Present, Soft, Non Tender Extremities: No edema, - - left BKA stump has small wound, dry cracked skin Skin: No breakdown, Rash Present - RUE petechial rash Musculoskeletal: No Tenderness to Palpation of Joints or Extremities, Cachexia Vitals/I&O's: Vital Signs Temp Pulse Resp BP Pulse Ox 98.0 F 80 16 145/89 H 92 02/24/20 13:32 02/24/20 13:48 02/24/20 13:32 02/24/20 13:48 02/24/20 11:00 Oxygen Flow Rate (L/min) 3 Oxygen Delivery Method Nasal Cannula Weight: 48.6 kg Body Mass Index (BMI) 17.2 Finger Stick Blood Glucose 160 Intake and Output for Last 24 Hours 02/22/20 02/23/20 02/24/20 23:59 23:59 23:59 Intake Total 305 / 305 275.34 / 680.34 882.19 / 882.19 Output Total 1750 / 1760 80 / 95 15 / 15 Balance -1445 / -1455 195.34 / 585.34 867.19 / 867.19 Microbiology Past 72 Hours 11/28/20 18:35 Urine Catheter - Catheter Streptococcus pneumoniae Antigen (M - Final 02/22/20 18:35 Urine Catheter - [place] Legionella Antigen - Final 02/22/20 15:37 Mucosa - Nasopharyngeal Respiratory Panel (PCR) - Final 02/22/20 11:50 Mucosa - Nose SARS-CoV-2 Antigen (Rapid) - Final Laboratory Results 02/23/20 20:30: POC Glucose 190 H 02/23/20 23:55: POC Glucose 235 H 02/24/20 04:30: Hepatitis A IgM Ab Pending, Hep Bs Antigen Pending, Hep B Core IgM Ab Pending, Hepatitis C Ab (EIA) Pending 02/24/20 04:30: Sodium 135 L, Potassium 5.0, Chloride 102, Carbon Dioxide 13.0 L , BUN 39 H, Creatinine 3.86 H, Estim Creat Clear Calc 16.58, Est GFR (MDRD) Af Amer 22 L, Est GFR (MDRD) Non-Af 18 L, BUN/Creatinine Ratio 10.1, Glucose 271 H, Calcium 7.2 L, Phosphorus 6.3 H, Albumin 1.5 L 02/24/20 04:30: WBC 10.8, RBC 4.32 L, Hgb 11.6 L, Hct 37.8 L, MCV 87.5, MCH 26.9 L, MCHC 30.7 L, RDW Std Deviation 55.7 H, RDW Coeff of Fidel 17.8 H, Plt Count 102 L, Immature Gran % (Auto) 0.700, Neut % (Auto) 89.9 H, Lymph % (Auto) 6.7 L, [place] % (Auto) 2.5, Eos % (Auto) 0.1, Baso % (Auto) 0.1, Absolute Neuts (auto) 9.7 H, Absolute Lymphs (auto) 0.72 L, Nucleated RBC % 0 02/24/20 06:22: Specimen Type ART, Sample Site R Radial, pH 7.25 L, Bicarbonate Actual 12.2 L, Total CO2 13, Base Excess -15 L, O2 Saturation 91 L, O2 % 25, ABG pCO2 27.9 L, ABG pO2 69 L, O2 Delivery Device Adult Vent, Vent Mode CPAP/PS, POC PEEP 5, POC Pressure Suppt 5 02/24/20 09:22: POC Glucose 334 H 02/24/20 09:30: Carbon Dioxide 13.0 L 02/24/20 09:30: Acetone Level LARGE H 02/24/20 09:30: Hemoglobin A1c 6.6 H 02/24/20 09:30: Serum Osmolality 321 H 02/24/20 09:30: Sodium 137, Potassium 5.0, Chloride 103, Carbon Dioxide 13.0 L, Anion Gap 21 H, BUN 41 H, Creatinine 4.07 H, Estim Creat Clear Calc 15.76, Est GFR (MDRD) Af Amer 21 L, Est GFR (MDRD) Non-Af 17 L, BUN/Creatinine Ratio 10.1, Glucose 321 H, Calcium 7.3 L 02/24/20 11:03: POC Glucose 216 H 02/24/20 11:58: POC Glucose 176 H 02/24/20 13:11: POC Glucose 145 H 02/24/20 14:00: Sodium Pending, Potassium Pending, Chloride Pending, Carbon Dioxide Pending, Anion Gap Pending, BUN Pending, Creatinine Pending, Est GFR (MDRD) Af Amer Pending, Est GFR (MDRD) Non-Af Pending, BUN/Creatinine Ratio Pending, Glucose Pending, Calcium Pending 02/24/20 14:10: POC Glucose 160 H Current Medications Acetaminophen (Acetaminophen 650 Mg/20 Ml Udc) 650 mg GT Q6H PRN PRN PRN Reason: Pain Score 1-10/Temp > 100.7 F Last Admin: 02/23/20 18:11 Dose: 650 mg Documented by: Albuterol Sulfate (Albuterol 2.5 Mg/3 Ml Vial.Neb.) 2.5 mg INHALATION Q2H PRN PRN PRN Reason: Shortness of Breath/Wheezing Albuterol/Ipratropium (Ipratropium/Albuterol Sulfate 3 Ml Ampul.Neb) 3 ml INHALATION Q4HWA.RT [facility] Last Admin: 02/24/20 11:42 Dose: 3 ml Documented by: Amitriptyline HCl (Amitriptyline 10 Mg Tablet) 20 mg PO QHS [facility] Last Admin: 02/23/20 21:11 Dose: 20 mg Documented by: Aspirin (Aspirin 81 Mg Tab.Chew) 81 mg PO DAILY@0800 [facility] Last Admin: 02/24/20 13:46 Dose: 81 mg Documented by: Bupropion HCl (Bupropion (Sr) 150 Mg Tablet.Sa) 150 mg PO BID [facility] Last Admin: 02/24/20 13:45 Dose: 150 mg Documented by: Calcium Acetate (Calcium Acetate 667 Mg Capsule) 667 mg PO TIDCM [facility] Cholestyramine Resin (Cholestyramine/Sucrose 4 Gm/Packet) 4 gm PO BIDCM [facility] Last Admin: 02/24/20 11:47 Dose: Not Given Documented by: Clopidogrel Bisulfate (Clopidogrel Bisulfate 75 Mg Tablet) 75 mg PO DAILY [facility] Last Admin: 02/24/20 13:45 Dose: 75 mg Documented by: Dextrose (Dextrose 50%-Water 25 Gm/50 Ml Disp.Syrin) 0 gm IV X1 PRN; Protocol PRN Reason: HYPOGLYCEMIA Glucagon (Glucagon 1 Mg/Ml Syringe) 1 mg IM .X1 PRN PRN Reason: Hypoglycemia Sodium Chloride () 250 mls @ 15 mls/hr IV .[id number] PRN PRN Reason: Saline Flush Sodium Chloride () 250 mls @ 15 mls/hr IV .[id number] PRN PRN Reason: Additional IVPB Infusion Vancomycin IV Pharmacy to Dose (1 ea/ Sodium Chloride) 500 mls @ 250 mls/hr IV PRN PRN; Protocol PRN Reason: Rx to Dose Piperacillin Sod/Tazobactam (Sod 3.375 gm/ Sodium Chloride) 50 mls @ 12.5 mls/hr IV Q12 [facility] Last Admin: 02/24/20 14:10 Dose: 12.5 mls/hr Documented by: Insulin Human Lispro 100 unit/ (Sodium Chloride) 100 mls @ 4.86 mls/hr CONT INF .[id number] [facility]; Protocol Last Titration: 02/24/20 14:00 Dose: 0.07 units/kg/hr, 3.4 mls/hr Documented by: Vancomycin HCl () 500 mg in 100 mls @ 100 mls/hr IV X1 ONE Stop: 02/24/20 16:59 Sodium Chloride 19.25 meq/ (Dextrose) 254.8125 mls @ 40 mls/hr IV .[id number] [facility] Stop: 02/25/20 13:00 Last Admin: 02/24/20 12:03 Dose: 40 mls/hr Documented by: Levothyroxine Sodium (Levothyroxine 50 Mcg Tablet) 50 mcg PO DAILY@0600 [facility] Last Admin: 02/24/20 05:19 Dose: 50 mcg Documented by: Methylprednisolone (Methylprednisolone 40 Mg/Ml Vial) 40 mg IV Q8 [facility] Last Admin: 02/24/20 13:45 Dose: 40 mg Documented by: Metoprolol Tartrate (Metoprolol Tartrate 25 Mg Tablet) 25 mg PO BID [facility] Last Admin: 02/24/20 13:48 Dose: 25 mg Documented by: Montelukast Sodium (Montelukast 10 Mg Tablet) 10 mg PO QHS [facility] Last Admin: 02/23/20 21:50 Dose: 10 mg Documented by: Multivit/Ca Carb/B Cmplx/FA/Prenat (Folic Acid/Vitamin B Comp W-C 1 Capsule) 1 capsule PO DAILY [facility] Last Admin: 02/24/20 13:45 Dose: 1 capsule Documented by: Nitroglycerin (Nitroglycerin (Inpatient Use) 0.4 Mg Tab.Subl) 0.4 mg SUBLINGUAL Q5M PRN PRN Reason: CARDIAC/CHEST PAIN Ondansetron HCl (Ondansetron 4 Mg/2 Ml Vial) 4 mg IV Q8H PRN PRN PRN Reason: NAUSEA/VOMITING Pantoprazole Sodium (Pantoprazole Sodium 40 Mg Tablet) 40 mg PO DAILY [facility] Last Admin: 02/24/20 13:44 Dose: 40 mg Documented by: Pyridostigmine [place] (Pyridostigmine [place] 60 Mg Tablet) 60 mg PO DAILY [facility] Last Admin: 02/24/20 13:46 Dose: 60 mg Documented by: Sodium Chloride (0.9% Saline Lock 10 Ml Syringe) 10 - 40 ml IV UD PRN PRN Reason: SALINE FLUSH Last Admin: 02/23/20 21:13 Dose: 10 ml Documented by: STROKE Vital Signs/Narrative: Vital Signs Temp Pulse Resp BP BP Pulse Ox 02/24/20 13:48 80 145/89 H 02/24/20 13:32 98.0 F 79 16 142/87 H 02/24/20 11:43 79 18 02/24/20 11:00 76 18 117/78 92 Medical Necessity - Tobacco Use Smoking Status: Current every day smoker Tobacco Use: Cigarettes Assessment/Plan All Active Problems (Last Reviewed 08/01/19 @ 12:44 by Dee Mukherjee) Foot ulcer, left (Acute) Left leg and foot cellulitis (Acute) Pneumonia (Acute) Hypoxia (Acute) Hypoglycemia (Acute) 1. Acute respiratory failure secondary to acute bilateral pneumonia/ acute COPD exacerbation, RESOLVED Status post extubation on 02/24/20 Chest x-ray showed multilobular airspace disease/pleural effusion Urinary Legionella and streptococcal antigen negative COVID-19 rapid antigen test is negative Continue on IV vancomycin and Zosyn 2. Acute metabolic encephalopathy secondary to #1, resolved 3. Acute COPD exacerbation secondary to bilateral pneumonia, improving Respiratory panel is negative Continue on IV Solu-Medrol as well as breathing treatments 4. Recurrent hypoglycemia, resolved 5. Acute DKA in a type I diabetic, patient was started on tube feeds yesterday, Anion gap is 21; started on insulin drip, will follow per protocol Blood sugar now is 216, would add D10 water at 40ml/hour When his gap is closed, will switch to Lantus 10 units nightly, 5 units premeal lispro and insulin sliding scale Continue to monitor blood sugars 6. Severe malnutrition, BMI 17.3, teacher tutor consulted 7. ESRD on hemodialysis - , dialysis today Nephrology consulted 8. Myasthenia gravis, continue on Pyridostigmine 9. Severe PAD status post left BKA, continue on aspirin, Plavix 10. Hypertension, controlled, continue metoprolol Continue to monitor vitals 11. Thrombocytopenia, likely related to sepsis, platelet count is improved to 102 from 72 We will hold off on DVT chemoprophylaxis Repeat blood work in am 12. DVT PPx- SCDs Inpatient E&M: [id number] [facility] L[facility]
[2020-02-24 14:34] LABS: Anion Gap 8 (5-15); BUN 13 mg/dL (7-18); BUN/Creat Ratio 7.6 RATIO (10-20); Calcium,Total 6.8 mg/dL (8.5-10.1); Chloride 100 mmol/L (98-107); Creatinine, Serum 1.72 mg/dL (0.70-1.30); EST Glomerular Filtration Rate 46 mL/min (>60); Est Glom Filt Rate - Afr Amer 56 mL/min (>60); Estimated Creatinine Clearance 37.28 ml/min; Glucose 149 mg/dL (74-106); Potassium 3.1 mmol/L (3.5-5.1); Sodium Level 137 mmol/L (136-145)
--- NOTE | 2020-02-24 15:08 | NURSING ---
This RN completed the dysphagia screen with patient, and passed. However, patient began coughing with pills, weak cough. Patient made NPO and speech therapy consulted.
[2020-02-24 15:16] LABS: Bedside Glucose 141 mg/dL (70-110)
--- NOTE | 2020-02-24 15:32 | RAD_ITS ---
STUDY: X-RAY CHEST REASON FOR EXAM: Male, 44 years old. Bilateral pneumonia. TECHNIQUE: Single AP portable view of the chest. COMPARISON: 02/22/2020. FINDINGS: Absence of the endotracheal tube and nasogastric tube seen on the prior study. There is markedly improved aeration in both lungs with persistent but decreased infiltrates in the upper lobes. There is continued patchy density at the right lung base with small bilateral pleural effusions. Sternal cerclage wires are present from a prior sternotomy. The heart is normal in size. Normal mediastinum and nathaniel. Normal visualized pulmonary arteries. Normal visualized aortic arch and descending thoracic aorta. Normal visualized thoracic spine. Normal visualized ribs, clavicles, and shoulders. There is no demonstrated abnormality of the visualized soft tissue structures of the upper abdomen. RAD/Chest 1 View (Portable) IMPRESSION: 1. Removal of the endotracheal tube and nasogastric tube present on the earlier study. 2. Marked improvement in the upper lobe pulmonary infiltrates. 3. Persistent pleural effusions with atelectasis versus infiltrate at the right lung base Electronically Signed: Eduin Kaplan DO at 17:04 EST Tel [phone], Service support ,
[2020-02-24 16:16] LABS: Bedside Glucose 147 mg/dL (70-110)
[2020-02-24 17:26] LABS: Bedside Glucose 141 mg/dL (70-110)
[2020-02-24 17:55] LABS: Anion Gap 6 (5-15); BUN 15 mg/dL (7-18); BUN/Creat Ratio 7.2 RATIO (10-20); Calcium,Total 6.9 mg/dL (8.5-10.1); Chloride 101 mmol/L (98-107); Creatinine, Serum 2.09 mg/dL (0.70-1.30); EST Glomerular Filtration Rate 37 mL/min (>60); Est Glom Filt Rate - Afr Amer 44 mL/min (>60); Estimated Creatinine Clearance 30.68 ml/min; Glucose 137 mg/dL (74-106); Potassium 3.4 mmol/L (3.5-5.1); Sodium Level 139 mmol/L (136-145)
[2020-02-24 18:20] LABS: Bedside Glucose 133 mg/dL (70-110)
[2020-02-24] MEDS: Vancomycin IV 500 MG/100 ML BAG 100 MG IV (18:23)
[2020-02-24 19:11] LABS: Bedside Glucose 140 mg/dL (70-110)
[2020-02-24 20:30] LABS: Bedside Glucose 124 mg/dL (70-110)
--- NOTE | 2020-02-24 22:36 | CPS ---
Patient's oxygen needs continue to increase over the night. If patient continues to desaturate, APPRAISER AUDITOR would recommend BiPAP for shallow breathing. This may be causing decrease in pulse ox that started during the night. Patient B.S. were crackles heard in the bases, but not really changed from previous heard breath sounds with 1840 aerosol tx.
[2020-02-24 22:55] LABS: Bedside Glucose 154 mg/dL (70-110)
[2020-02-25] VITALS (35 sets, daily range): BP systolic 125–168; BP diastolic 87–111; PULSE 75–95; RESP 13–27; TEMP 35.9–37.4; O2SAT 89–100
[2020-02-25 00:31] LABS: Bedside Glucose 147 mg/dL (70-110)
[2020-02-25 04:42] LABS: Absolute Lymphocyte Count 0.43 X10^3/uL (0.83-4.51); Basophil# 0.02 X10^3/uL; Basophil% 0.2 % (0-1); Hematocrit 36.9 % (40-54); Hemoglobin 12.3 g/dL (13.0-16.5); Lymphocyte # 0.43 X10^3/ul (4.0); Lymphocyte % 3.3 % (19-41); Mean Corp Hgb Conc 33.3 g/dL (32-36); Mean Corpuscular Hgb 27.4 pg (27.0-32.0); Mean Corpuscular Volume 82.2 fL (80-94); Monocyte# 0.37 X10^3/uL; Monocyte% 2.8 % (0-10); NRBC Flagged by Analyzer 0 % (0-5); Neutrophil # 12.03 X10^3/uL (2.7-7.7); Neutrophil % 92.5 % (47-70); POSITIVE COUNT YES; POSITIVE DIFFERENTIAL YES; Platelet Count 98 K/mm3 (150-450); RBC Distribution Width CV 17.5 % (11.6-14.6); RBC Distribution Width SD 51.3 fl (35.1-43.9); Red Blood Count 4.49 M/mm3 (4.6-6.2)
[2020-02-25 04:43] LABS: Differential Indicated SCAN CRITERIA MET
[2020-02-25 04:58] LABS: BUN 18 mg/dL (7-18); BUN/Creat Ratio 7.6 RATIO (10-20); Creatinine, Serum 2.36 mg/dL (0.70-1.30); EST Glomerular Filtration Rate 32 mL/min (>60); Est Glom Filt Rate - Afr Amer 39 mL/min (>60); Estimated Creatinine Clearance 25.27 ml/min; Glucose 166 mg/dL (74-106); Protein, Total 6.3 g/dL (6.4-8.2)
[2020-02-25 04:59] LABS: ALB/GLOB Ratio 0.5 RATIO (0.9-2.4); AST(SGOT) 39 U/L (15-37); Alanine Aminotransfer ALT/SGPT 49 U/L (16-61); Alkaline Phosphatase 424 U/L (45-117); Anion Gap 10 (5-15); Calcium,Total 7.1 mg/dL (8.5-10.1); Chloride 98 mmol/L (98-107); Globulin 4.3 g/dL (2.2-4.2); Phosphorus 3.2 mg/dL (2.5-4.9); Potassium 3.5 mmol/L (3.5-5.1); Sodium Level 136 mmol/L (136-145)
[2020-02-25 05:06] LABS: HEPATITIS B SURFACE AG Negative (Negative); Hepatitis A IgM Antibody Negative (Negative); Hepatitis B Core AB IgM Negative (Negative)
[2020-02-25] MEDS: Insulin Lispro 100 UNIT/ML INSULN.PEN SC ×3 (05:20→20:57)
[2020-02-25] MEDS: Albuterol 2.5 MG/3 ML VIAL.NEB. INHALATION (05:37)
--- NOTE | 2020-02-25 06:00 | RAD_ITS ---
STUDY: X-RAY CHEST REASON FOR EXAM: Male, 44 years old. Short of breath. TECHNIQUE: AP portable upright COMPARISON: 02/24/2020 at 3:31 PM FINDINGS: Multifocal bilateral alveolar opacities in the lungs are similar to previous. No apparent pneumothorax. Small bilateral pleural effusions with adjacent atelectasis, mild cardiomegaly, sternotomy wires are also unchanged. RAD/Chest 1 View (Portable) IMPRESSION: Little change compared to prior. Persistent bilateral alveolar opacities which could represent bilateral pneumonia or edema. Small pleural effusions. Electronically Signed: Shankar Valdez, at 7:14 EST Tel , Service support ,
[2020-02-25] MEDS: Ipratropium/Albuterol Sulfate 3 ML AMPUL.NEB INHALATION ×3 (06:46→19:02)
--- NOTE | 2020-02-25 06:56 | CPS ---
Patient was tried off BiPAP on 15L HFNC. Within 10mins patient started to desaturate into the 80s for his pulse ox. Patient was placed on NRB till DIRECTOR OF MEDICARE could place patient on BiPAP.
--- NOTE | 2020-02-25 07:06 | PCM.PN.INT ---
Subjective: Patient did okay for most of the day yesterday and was down to 2 L nasal cannula. Patient did develop DKA and was on insulin drip. Patient corrected quickly, but was not started on p.o. diet secondary to swallow concerns. Patient had been made n.p.o. secondary to swallow concerns and did have some hypertension. Patient also tolerated hemodialysis well with 2.5 L removed. However, at approximately 5 PM, oxygen status significantly worsened. Patient has since required BiPAP with increasing FiO2. Patient is not reporting any chest pain, diaphoresis, nausea or vomiting. General: Alert, Cooperative, - - Mild to moderate respiratory distress HEENT: Atraumatic, PERRLA, EOMI, Normocephalic, - - Slight scleral injection. Pulling at mask frequently. Oral: No Gingival or Mucosal Lesions/ Ulcerations, Dry Mucosa Neck: Supple, No Nodes, Trachea Midline, JVD, Right Lungs: No rhonchi, No wheeze, Diminished, Rales, - - Symmetric expansion Cardiovascular: Regular rate, Regular Rhythm, Normal S1, Normal S2, No murmurs, No rub noted, No Gallop Abdomen: Bowel Sounds Present, Soft, Non Tender, Non-Distended Extremities: No clubbing, No cyanosis, No edema Skin: - - No change compared to previous Musculoskeletal: No Tenderness to Palpation of Joints or Extremities Lymphatic: No Cervical, Supraclavicular, or Inguinal Adenopathy Neurological: Cranial nerves II-XII grossly intact, Neuro grossly intact, Motor Exam 5/5 strength throughout Psych/Mental Status: Anxious, Restless Vital Signs Temp Pulse Resp BP Pulse Ox 36.6 C 82 21 H 159/108 H 95 02/25/20 04:00 02/25/20 06:00 02/25/20 06:00 02/25/20 06:00 02/25/20 06:00 Oxygen Flow Rate (L/min) 15 Oxygen Delivery Method Nasal Cannula Weight: 45.2 kg Body Mass Index (BMI) 17.2 Finger Stick Blood Glucose 140 Intake and Output for Last 24 Hours 02/23/20 02/24/20 02/25/20 23:59 23:59 23:59 Intake Total 275.34 / 680.34 1298.0125 / 1298.0125 50 / 50 Output Total 80 / 95 2915 / 2920 5 / 5 Balance 195.34 / 585.34 -1616.9875 / -1621.9875 45 / 45 Labs (Last 48 Hours) 02/23/20 02/23/20 02/23/20 09:23 20:30 23:55 WBC RBC Hgb Hct MCV MCH MCHC RDW Std Deviation RDW Coeff of Fidel Plt Count Immature Gran % (Auto) Neut % (Auto) Lymph % (Auto) Bartholomew % (Auto) Eos % (Auto) Baso % (Auto) Absolute Neuts (auto) Absolute Lymphs (auto) Nucleated RBC % Specimen Type ART Sample Site R Radial pH 7.33 L Bicarbonate Actual 19.7 L Total CO2 21 Base Excess -6 L O2 Saturation 89 L O2 % 40 ABG pCO2 37.1 ABG pO2 60 L Marco A Test Positive O2 Delivery Device Adult Vent Vent Mode CPAP/PS POC PEEP 5 POC Pressure Suppt 5 Sodium Potassium Chloride Carbon Dioxide Anion Gap BUN Creatinine Estim Creat Clear Calc Est GFR (MDRD) Af Amer Est GFR (MDRD) Non-Af BUN/Creatinine Ratio Glucose Hemoglobin A1c Serum Osmolality Calcium Phosphorus Total Bilirubin AST ALT Alkaline Phosphatase Total Protein Albumin Globulin Albumin/Globulin Ratio Acetone Level Hepatitis A IgM Ab Hep Bs Antigen Hep B Core IgM Ab Hepatitis C Ab (EIA) POC Glucose 190 H 235 H 02/24/20 02/24/20 02/24/20 04:30 04:30 04:30 WBC 10.8 RBC 4.32 L Hgb 11.6 L Hct 37.8 L MCV 87.5 MCH 26.9 L MCHC 30.7 L RDW Std Deviation 55.7 H RDW Coeff of Fidel 17.8 H Plt Count 102 L Immature Gran % (Auto) 0.700 Neut % (Auto) 89.9 H Lymph % (Auto) 6.7 L Bartholomew % (Auto) 2.5 Eos % (Auto) 0.1 Baso % (Auto) 0.1 Absolute Neuts (auto) 9.7 H Absolute Lymphs (auto) 0.72 L Nucleated RBC % 0 Specimen Type Sample Site pH Bicarbonate Actual Total CO2 Base Excess O2 Saturation O2 % ABG pCO2 ABG pO2 Marco A Test O2 Delivery Device Vent Mode POC PEEP POC Pressure Suppt Sodium 135 L Potassium 5.0 Chloride 102 Carbon Dioxide 13.0 L Anion Gap BUN 39 H Creatinine 3.86 H Estim Creat Clear Calc 16.58 Est GFR (MDRD) Af Amer 22 L Est GFR (MDRD) Non-Af 18 L BUN/Creatinine Ratio 10.1 Glucose 271 H Hemoglobin A1c Serum Osmolality Calcium 7.2 L Phosphorus 6.3 H Total Bilirubin AST ALT Alkaline Phosphatase Total Protein Albumin 1.5 L Globulin Albumin/Globulin Ratio Acetone Level Hepatitis A IgM Ab Pending Hep Bs Antigen Pending Hep B Core IgM Ab Pending Hepatitis C Ab (EIA) Pending POC Glucose 02/24/20 02/24/20 02/24/20 06:22 09:22 09:30 WBC RBC Hgb Hct MCV MCH MCHC RDW Std Deviation RDW Coeff of Fidel Plt Count Immature Gran % (Auto) Neut % (Auto) Lymph % (Auto) Bartholomew % (Auto) Eos % (Auto) Baso % (Auto) Absolute Neuts (auto) Absolute Lymphs (auto) Nucleated RBC % Specimen Type ART Sample Site R Radial pH 7.25 L Bicarbonate Actual 12.2 L Total CO2 13 Base Excess -15 L O2 Saturation 91 L O2 % 25 ABG pCO2 27.9 L ABG pO2 69 L Marco A Test O2 Delivery Device Adult Vent Vent Mode CPAP/PS POC PEEP 5 POC Pressure Suppt 5 Sodium Potassium Chloride Carbon Dioxide 13.0 L Anion Gap BUN Creatinine Estim Creat Clear Calc Est GFR (MDRD) Af Amer Est GFR (MDRD) Non-Af BUN/Creatinine Ratio Glucose Hemoglobin A1c Serum Osmolality Calcium Phosphorus Total Bilirubin AST ALT Alkaline Phosphatase Total Protein Albumin Globulin Albumin/Globulin Ratio Acetone Level Hepatitis A IgM Ab Hep Bs Antigen Hep B Core IgM Ab Hepatitis C Ab (EIA) POC Glucose 334 H 02/24/20 02/24/20 02/24/20 09:30 09:30 09:30 WBC RBC Hgb Hct MCV MCH MCHC RDW Std Deviation RDW Coeff of Fidel Plt Count Immature Gran % (Auto) Neut % (Auto) Lymph % (Auto) Bartholomew % (Auto) Eos % (Auto) Baso % (Auto) Absolute Neuts (auto) Absolute Lymphs (auto) Nucleated RBC % Specimen Type Sample Site pH Bicarbonate Actual Total CO2 Base Excess O2 Saturation O2 % ABG pCO2 ABG pO2 Marco A Test O2 Delivery Device Vent Mode POC PEEP POC Pressure Suppt Sodium Potassium Chloride Carbon Dioxide Anion Gap BUN Creatinine Estim Creat Clear Calc Est GFR (MDRD) Af Amer Est GFR (MDRD) Non-Af BUN/Creatinine Ratio Glucose Hemoglobin A1c 6.6 H Serum Osmolality 321 H Calcium Phosphorus Total Bilirubin AST ALT Alkaline Phosphatase Total Protein Albumin Globulin Albumin/Globulin Ratio Acetone Level LARGE H Hepatitis A IgM Ab Hep Bs Antigen Hep B Core IgM Ab Hepatitis C Ab (EIA) POC Glucose 02/24/20 02/24/20 02/24/20 09:30 11:03 11:58 WBC RBC Hgb Hct MCV MCH MCHC RDW Std Deviation RDW Coeff of Fidel Plt Count Immature Gran % (Auto) Neut % (Auto) Lymph % (Auto) Bartholomew % (Auto) Eos % (Auto) Baso % (Auto) Absolute Neuts (auto) Absolute Lymphs (auto) Nucleated RBC % Specimen Type Sample Site pH Bicarbonate Actual Total CO2 Base Excess O2 Saturation O2 % ABG pCO2 ABG pO2 Marco A Test O2 Delivery Device Vent Mode POC PEEP POC Pressure Suppt Sodium 137 Potassium 5.0 Chloride 103 Carbon Dioxide 13.0 L Anion Gap 21 H BUN 41 H Creatinine 4.07 H Estim Creat Clear Calc 15.76 Est GFR (MDRD) Af Amer 21 L Est GFR (MDRD) Non-Af 17 L BUN/Creatinine Ratio 10.1 Glucose 321 H Hemoglobin A1c Serum Osmolality Calcium 7.3 L Phosphorus Total Bilirubin AST ALT Alkaline Phosphatase Total Protein Albumin Globulin Albumin/Globulin Ratio Acetone Level Hepatitis A IgM Ab Hep Bs Antigen Hep B Core IgM Ab Hepatitis C Ab (EIA) POC Glucose 216 H 176 H 02/24/20 02/24/20 02/24/20 13:11 14:00 14:10 WBC RBC Hgb Hct MCV MCH MCHC RDW Std Deviation RDW Coeff of Fidel Plt Count Immature Gran % (Auto) Neut % (Auto) Lymph % (Auto) Bartholomew % (Auto) Eos % (Auto) Baso % (Auto) Absolute Neuts (auto) Absolute Lymphs (auto) Nucleated RBC % Specimen Type Sample Site pH Bicarbonate Actual Total CO2 Base Excess O2 Saturation O2 % ABG pCO2 ABG pO2 Marco A Test O2 Delivery Device Vent Mode POC PEEP POC Pressure Suppt Sodium 137 Potassium 3.1 L Chloride 100 Carbon Dioxide 29.0 Anion Gap 8 BUN 13 Creatinine 1.72 H Estim Creat Clear Calc 37.28 Est GFR (MDRD) Af Amer 56 L Est GFR (MDRD) Non-Af 46 L BUN/Creatinine Ratio 7.6 L Glucose 149 H Hemoglobin A1c Serum Osmolality Calcium 6.8 L Phosphorus Total Bilirubin AST ALT Alkaline Phosphatase Total Protein Albumin Globulin Albumin/Globulin Ratio Acetone Level Hepatitis A IgM Ab Hep Bs Antigen Hep B Core IgM Ab Hepatitis C Ab (EIA) POC Glucose 145 H 160 H 02/24/20 02/24/20 02/24/20 15:06 16:08 17:12 WBC RBC Hgb Hct MCV MCH MCHC RDW Std Deviation RDW Coeff of Fidel Plt Count Immature Gran % (Auto) Neut % (Auto) Lymph % (Auto) Bartholomew % (Auto) Eos % (Auto) Baso % (Auto) Absolute Neuts (auto) Absolute Lymphs (auto) Nucleated RBC % Specimen Type Sample Site pH Bicarbonate Actual Total CO2 Base Excess O2 Saturation O2 % ABG pCO2 ABG pO2 Marco A Test O2 Delivery Device Vent Mode POC PEEP POC Pressure Suppt Sodium Potassium Chloride Carbon Dioxide Anion Gap BUN Creatinine Estim Creat Clear Calc Est GFR (MDRD) Af Amer Est GFR (MDRD) Non-Af BUN/Creatinine Ratio Glucose Hemoglobin A1c Serum Osmolality Calcium Phosphorus Total Bilirubin AST ALT Alkaline Phosphatase Total Protein Albumin Globulin Albumin/Globulin Ratio Acetone Level Hepatitis A IgM Ab Hep Bs Antigen Hep B Core IgM Ab Hepatitis C Ab (EIA) POC Glucose 141 H 147 H 141 H 02/24/20 02/24/20 02/24/20 17:20 18:15 19:08 WBC RBC Hgb Hct MCV MCH MCHC RDW Std Deviation RDW Coeff of Fidel Plt Count Immature Gran % (Auto) Neut % (Auto) Lymph % (Auto) Bartholomew % (Auto) Eos % (Auto) Baso % (Auto) Absolute Neuts (auto) Absolute Lymphs (auto) Nucleated RBC % Specimen Type Sample Site pH Bicarbonate Actual Total CO2 Base Excess O2 Saturation O2 % ABG pCO2 ABG pO2 Marco A Test O2 Delivery Device Vent Mode POC PEEP POC Pressure Suppt Sodium 139 Potassium 3.4 L Chloride 101 Carbon Dioxide 32.0 Anion Gap 6 BUN 15 Creatinine 2.09 H Estim Creat Clear Calc 30.68 Est GFR (MDRD) Af Amer 44 L Est GFR (MDRD) Non-Af 37 L BUN/Creatinine Ratio 7.2 L Glucose 137 H Hemoglobin A1c Serum Osmolality Calcium 6.9 L Phosphorus Total Bilirubin AST ALT Alkaline Phosphatase Total Protein Albumin Globulin Albumin/Globulin Ratio Acetone Level Hepatitis A IgM Ab Hep Bs Antigen Hep B Core IgM Ab Hepatitis C Ab (EIA) POC Glucose 133 H 140 H 02/24/20 02/24/20 02/25/20 20:23 22:48 00:27 WBC RBC Hgb Hct MCV MCH MCHC RDW Std Deviation RDW Coeff of Fidel Plt Count Immature Gran % (Auto) Neut % (Auto) Lymph % (Auto) Bartholomew % (Auto) Eos % (Auto) Baso % (Auto) Absolute Neuts (auto) Absolute Lymphs (auto) Nucleated RBC % Specimen Type Sample Site pH Bicarbonate Actual Total CO2 Base Excess O2 Saturation O2 % ABG pCO2 ABG pO2 Marco A Test O2 Delivery Device Vent Mode POC PEEP POC Pressure Suppt Sodium Potassium Chloride Carbon Dioxide Anion Gap BUN Creatinine Estim Creat Clear Calc Est GFR (MDRD) Af Amer Est GFR (MDRD) Non-Af BUN/Creatinine Ratio Glucose Hemoglobin A1c Serum Osmolality Calcium Phosphorus Total Bilirubin AST ALT Alkaline Phosphatase Total Protein Albumin Globulin Albumin/Globulin Ratio Acetone Level Hepatitis A IgM Ab Hep Bs Antigen Hep B Core IgM Ab Hepatitis C Ab (EIA) POC Glucose 124 H 154 H 147 H 02/25/20 02/25/20 04:30 04:30 WBC 13.0 H RBC 4.49 L Hgb 12.3 L Hct 36.9 L MCV 82.2 D MCH 27.4 MCHC 33.3 D RDW Std Deviation 51.3 H RDW Coeff of Fidel 17.5 H Plt Count 98 L Immature Gran % (Auto) 1.200 H Neut % (Auto) 92.5 H Lymph % (Auto) 3.3 L Bartholomew % (Auto) 2.8 Eos % (Auto) 0.0 Baso % (Auto) 0.2 Absolute Neuts (auto) 12.0 H Absolute Lymphs (auto) 0.43 L Nucleated RBC % 0 Specimen Type Sample Site pH Bicarbonate Actual Total CO2 Base Excess O2 Saturation O2 % ABG pCO2 ABG pO2 Marco A Test O2 Delivery Device Vent Mode POC PEEP POC Pressure Suppt Sodium 136 Potassium 3.5 Chloride 98 Carbon Dioxide 28.0 Anion Gap 10 BUN 18 Creatinine 2.36 H Estim Creat Clear Calc 25.27 Est GFR (MDRD) Af Amer 39 L Est GFR (MDRD) Non-Af 32 L BUN/Creatinine Ratio 7.6 L Glucose 166 H Hemoglobin A1c Serum Osmolality Calcium 7.1 L Phosphorus 3.2 Total Bilirubin 0.40 AST 39 H ALT 49 Alkaline Phosphatase 424 H Total Protein 6.3 L Albumin 2.0 L Globulin 4.3 H Albumin/Globulin Ratio 0.5 L Acetone Level Hepatitis A IgM Ab Hep Bs Antigen Hep B Core IgM Ab Hepatitis C Ab (EIA) POC Glucose Clinical Impression(s) from Imaging Studies Chest X-Ray 02/24/20 15:32 IMPRESSION: 1. Removal of the endotracheal tube and nasogastric tube present on the earlier study. 2. Marked improvement in the upper lobe pulmonary infiltrates. 3. Persistent pleural effusions with atelectasis versus infiltrate at the right lung base Electronically Signed: Eduin Kaplan DO at 17:04 EST Tel [phone], Service support , Medical Necessity - Tobacco Use Smoking Status: Current every day smoker Tobacco Use: Cigarettes Assessment/Plan All Active Problems (Last Reviewed 08/01/19 @ 12:44 by Dee Mukherjee) Foot ulcer, left (Acute) Left leg and foot cellulitis (Acute) Pneumonia (Acute) Hypoxia (Acute) Hypoglycemia (Acute) RECOMMENDATIONS: 1. Initiate basal insulin 2. Monitor blood sugars closely 3. Increase activity as tolerated 4. Possible need for repeat dialysis 5. Possible thoracentesis as an outpatient 6. Transition to Airvo with p.o. medications okay by speech therapy IMPRESSIONS: 1. Acute combined respiratory failure secondary to flash pulmonary edema Pulmonary function testing was within normal limits in 2013. Patient does have end-stage renal disease, so medication accumulation would be a concern. Patient is on empiric antibiotics at this time. Patient was successfully extubated and doing well on 2 L nasal cannula. Then patient developed hypertension with elevated diastolics and progressive hypoxia. Patient has responded to positive pressure ventilation. Patient may require additional fluid removal by dialysis as he makes very little urine 2. Hypoglycemia secondary to possible pump failure/gastroparesis/end-stage renal disease/DKA Insulin pump has been discontinued. Blood sugars have been controlled. Patient has been receiving D10 to limit fluid. However, patient has not received basal insulin since yesterday evening. This will be initiated immediately and titrate D10 drip as necessary to keep blood sugars appropriate. 3. Cachexia/PAD/hypertension/acute metabolic encephalopathy/pleural effusions Complicates care, management, recovery and prognosis. Will attempt to address hypercarbia and other electrolytes. Patient is cachectic with an albumin of 1.6. Dietitian has been consulted. TIME: 35 minutes critical care time spent addressing patient's acute combined respiratory failure, hypoglycemia, review of all data and collaboration with care team (5:30 AM to 6:30 AM) [id number] Critical care first hour
--- NOTE | 2020-02-25 07:37 | PN_ITS ---
Patient Problems: Active and Suspected Problems (Last Reviewed 08/01/19 @ 12:44 by Dee Mukherjee) Foot ulcer, left (Acute) Left leg and foot cellulitis (Acute) Pneumonia (Acute) Hypoxia (Acute) Hypoglycemia (Acute) Subjective: Insulin ggt off and 10 u Lantus given. Now on BIPAP though as BP got high and pt into flash pulmonary edema. Possible HD today. Pt states that he feels a bit confused and jittery right now but overall is better than he was earlier today. Vitals/I&O's: Vital Signs Temp Pulse Resp BP Pulse Ox 97.9 F 82 21 H 159/108 H 95 02/25/20 04:00 02/25/20 06:00 02/25/20 06:00 02/25/20 06:00 02/25/20 06:00 Oxygen Flow Rate (L/min) 15 Oxygen Delivery Method Bi-pap Weight: 45.2 kg Body Mass Index (BMI) 17.2 Finger Stick Blood Glucose 140 Intake and Output for Last 24 Hours 02/23/20 02/24/20 02/25/20 23:59 23:59 23:59 Intake Total 275.34 / 680.34 1298.0125 / 1298.0125 50 / 50 Output Total 80 / 95 2915 / 2920 5 / 5 Balance 195.34 / 585.34 -1616.9875 / -1621.9875 45 / 45 General: Alert, Oriented x3, Cooperative, No apparent distress, - - Thin, WM lying in bed who appears older than stated age HEENT: Atraumatic, PERRLA, EOMI, Normocephalic, EAC Clear Oral: No Gingival or Mucosal Lesions/ Ulcerations, Dry Mucosa, - - poor dentition Neck: Supple, No JVD, Negative Hepatojugular Reflux, No Nodes, Trachea Midline, Thyroid Normal Size and Texture, - Lungs: Clear to auscultation, No rhonchi, No wheeze, No rales, Diminished - diffusely Cardiovascular: Regular rate, Regular Rhythm, Normal S1, Normal S2, No murmurs, No Ectopic Activity, No rub noted, No Gallop Abdomen: Bowel Sounds Present, Soft, Non Tender, Non-Distended, No Hepato- splenomegaly, No hernias noted Extremities: No clubbing, No cyanosis, No edema, Capillary Refill Less than 3 Seconds, Peripheral Pulses Normal Skin: No breakdown, Rash Present, Excoriated, - - legs with cracked skin and excoriations Musculoskeletal: No Tenderness to Palpation of Joints or Extremities, No Muscle Wasting, - - BKA on L Neurological: Cranial nerves II-XII grossly intact, Neuro grossly intact, - - neuropathy Psych/Mental Status: Normal Affect, Appropriate, - - calm currently but gets fidgity per nsg Microbiology Past 72 Hours 02/22/20 18:35 Urine Catheter - Catheter Streptococcus pneumoniae Antigen (M - Final 02/22/20 18:35 Urine Catheter - [place] Legionella Antigen - Final 02/22/20 15:37 Mucosa - Nasopharyngeal Respiratory Panel (PCR) - Final 02/22/20 11:50 Mucosa - Nose SARS-CoV-2 Antigen (Rapid) - Final Laboratory Results 02/24/20 09:22: POC Glucose 334 H 02/24/20 09:30: Carbon Dioxide 13.0 L 02/24/20 09:30: Acetone Level LARGE H 02/24/20 09:30: Hemoglobin A1c 6.6 H 02/24/20 09:30: Serum Osmolality 321 H 02/24/20 09:30: Sodium 137, Potassium 5.0, Chloride 103, Carbon Dioxide 13.0 L, Anion Gap 21 H, BUN 41 H, Creatinine 4.07 H, Estim Creat Clear Calc 15.76, Est GFR (MDRD) Af Amer 21 L, Est GFR (MDRD) Non-Af 17 L, BUN/Creatinine Ratio 10.1, Glucose 321 H, Calcium 7.3 L 02/24/20 11:03: POC Glucose 216 H 02/24/20 11:58: POC Glucose 176 H 02/24/20 13:11: POC Glucose 145 H 02/24/20 14:00: Sodium 137, Potassium 3.1 L, Chloride 100, Carbon Dioxide 29.0, Anion Gap 8, BUN 13, Creatinine 1.72 H, Estim Creat Clear Calc 37.28, Est GFR (MDRD) Af Amer 56 L, Est GFR (MDRD) Non-Af 46 L, BUN/Creatinine Ratio 7.6 L, Glucose 149 H, Calcium 6.8 L 02/24/20 14:10: POC Glucose 160 H 02/24/20 15:06: POC Glucose 141 H 11/30/20 16:08: POC Glucose 147 H 02/24/20 17:12: POC Glucose 141 H 02/24/20 17:20: Sodium 139, Potassium 3.4 L, Chloride 101, Carbon Dioxide 32.0, Anion Gap 6, BUN 15, Creatinine 2.09 H, Estim Creat Clear Calc 30.68, Est GFR (MDRD) Af Amer 44 L, Est GFR (MDRD) Non-Af 37 L, BUN/Creatinine Ratio 7.2 L, Glucose 137 H, Calcium 6.9 L 02/24/20 18:15: POC Glucose 133 H 02/24/20 19:08: POC Glucose 140 H 02/24/20 20:23: POC Glucose 124 H 02/24/20 22:48: POC Glucose 154 H 02/25/20 00:27: POC Glucose 147 H 02/25/20 04:30: WBC 13.0 H, RBC 4.49 L, Hgb 12.3 L, Hct 36.9 L, MCV 82.2 D, MCH 27.4, MCHC 33.3 D, RDW Std Deviation 51.3 H, RDW Coeff of Fidel 17.5 H, Plt Count 98 L, Immature Gran % (Auto) 1.200 H, Neut % (Auto) 92.5 H, Lymph % (Auto) 3.3 L , [place] % (Auto) 2.8, Eos % (Auto) 0.0, Baso % (Auto) 0.2, Absolute Neuts (auto) 12.0 H, Absolute Lymphs (auto) 0.43 L, Nucleated RBC % 0 02/25/20 04:30: Sodium 136, Potassium 3.5, Chloride 98, Carbon Dioxide 28.0, Anion Gap 10, BUN 18, Creatinine 2.36 H, Estim Creat Clear Calc 25.27, Est GFR (MDRD) Af Amer 39 L, Est GFR (MDRD) Non-Af 32 L, BUN/Creatinine Ratio 7.6 L, Glucose 166 H, Calcium 7.1 L, Phosphorus 3.2, Total Bilirubin 0.40, AST 39 H, ALT 49, Alkaline Phosphatase 424 H, Total Protein 6.3 L, Albumin 2.0 L, Globulin 4.3 H, Albumin/Globulin Ratio 0.5 L Current Medications Acetaminophen (Acetaminophen 650 Mg/20 Ml Udc) 650 mg GT Q6H PRN PRN PRN Reason: Pain Score 1-10/Temp > 100.7 F Last Admin: 02/23/20 18:11 Dose: 650 mg Documented by: Albuterol Sulfate (Albuterol 2.5 Mg/3 Ml Vial.Neb.) 2.5 mg INHALATION Q2H PRN PRN PRN Reason: Shortness of Breath/Wheezing Last Admin: 02/25/20 05:37 Dose: 2.5 mg Documented by: Albuterol/Ipratropium (Ipratropium/Albuterol Sulfate 3 Ml Ampul.Neb) 3 ml INHALATION Q4HWA.RT [facility] Last Admin: 02/25/20 06:46 Dose: 3 ml Documented by: Amitriptyline HCl (Amitriptyline 10 Mg Tablet) 20 mg PO QHS [facility] Last Admin: 02/24/20 20:27 Dose: Not Given Documented by: Aspirin (Aspirin 81 Mg Tab.Chew) 81 mg PO DAILY@0800 [facility] Last Admin: 02/24/20 13:46 Dose: 81 mg Documented by: Bupropion HCl (Bupropion (Sr) 150 Mg Tablet.Sa) 150 mg PO BID [facility] Last Admin: 02/24/20 20:28 Dose: Not Given Documented by: Calcium Acetate (Calcium Acetate 667 Mg Capsule) 667 mg PO TIDCM [facility] Last Admin: 02/24/20 16:58 Dose: Not Given Documented by: Cholestyramine Resin (Cholestyramine/Sucrose 4 Gm/Packet) 4 gm PO BIDCM [facility] Last Admin: 02/24/20 16:58 Dose: Not Given Documented by: Clopidogrel Bisulfate (Clopidogrel Bisulfate 75 Mg Tablet) 75 mg PO DAILY [facility] Last Admin: 02/24/20 13:45 Dose: 75 mg Documented by: Dextrose (Dextrose 50%-Water 25 Gm/50 Ml Disp.Syrin) 0 gm IV X1 PRN; Protocol PRN Reason: HYPOGLYCEMIA Glucagon (Glucagon 1 Mg/Ml Syringe) 1 mg IM .X1 PRN PRN Reason: Hypoglycemia Sodium Chloride () 250 mls @ 15 mls/hr IV .[id number] PRN PRN Reason: Saline Flush Sodium Chloride () 250 mls @ 15 mls/hr IV .[id number] PRN PRN Reason: Additional IVPB Infusion Vancomycin IV Pharmacy to Dose (1 ea/ Sodium Chloride) 500 mls @ 250 mls/hr IV PRN PRN; Protocol PRN Reason: Rx to Dose Piperacillin Sod/Tazobactam (Sod 3.375 gm/ Sodium Chloride) 50 mls @ 12.5 mls/hr IV Q12 [facility] Last Infusion: 02/25/20 02:10 Dose: Infused Documented by: Sodium Chloride 19.25 meq/ (Dextrose) 254.8125 mls @ 20 mls/hr IV .[id number] [facility] Stop: 02/26/20 14:00 Last Infusion: 02/24/20 20:30 Dose: 20 mls/hr Documented by: Insulin Human Lispro (Insulin Lispro 100 Unit/Ml Insuln.Pen) 0 unit SC Q4 [facility]; Protocol Last Admin: 02/25/20 05:20 Dose: 2 u Documented by: Levothyroxine Sodium (Levothyroxine 50 Mcg Tablet) 50 mcg PO DAILY@0600 [facility] Last Admin: 02/24/20 05:19 Dose: 50 mcg Documented by: Methylprednisolone (Methylprednisolone 40 Mg/Ml Vial) 40 mg IV Q8 [facility] Last Admin: 02/25/20 05:50 Dose: 40 mg Documented by: Metoprolol Tartrate (Metoprolol Tartrate 25 Mg Tablet) 25 mg PO BID [facility] Last Admin: 02/24/20 20:27 Dose: Not Given Documented by: Montelukast Sodium (Montelukast 10 Mg Tablet) 10 mg PO QHS [facility] Last Admin: 02/24/20 20:27 Dose: Not Given Documented by: Multivit/Ca Carb/B Cmplx/FA/Prenat (Folic Acid/Vitamin B Comp W-C 1 Capsule) 1 capsule PO DAILY [facility] Last Admin: 02/24/20 13:45 Dose: 1 capsule Documented by: Nitroglycerin (Nitroglycerin (Inpatient Use) 0.4 Mg Tab.Subl) 0.4 mg SUBLINGUAL Q5M PRN PRN Reason: CARDIAC/CHEST PAIN Ondansetron HCl (Ondansetron 4 Mg/2 Ml Vial) 4 mg IV Q8H PRN PRN PRN Reason: NAUSEA/VOMITING Pantoprazole Sodium (Pantoprazole Sodium 40 Mg Tablet) 40 mg PO DAILY [facility] Last Admin: 02/24/20 13:44 Dose: 40 mg Documented by: Pyridostigmine [place] (Pyridostigmine [place] 60 Mg Tablet) 60 mg PO DAILY [facility] Last Admin: 02/24/20 13:46 Dose: 60 mg Documented by: Sodium Chloride (0.9% Saline Lock 10 Ml Syringe) 10 - 40 ml IV UD PRN PRN Reason: SALINE FLUSH Last Admin: 02/23/20 21:13 Dose: 10 ml Documented by: STROKE Vital Signs/Narrative: Vital Signs Temp Pulse Resp BP Pulse Ox 02/25/20 06:00 82 21 H 159/108 H 95 02/25/20 05:36 80 27 H 02/25/20 05:05 90 02/25/20 05:00 19 H 145/100 H 96 02/25/20 04:00 97.9 F 77 16 138/94 H 95 Medical Necessity - Tobacco Use Smoking Status: Current every day smoker Tobacco Use: Cigarettes Assessment/Plan All Active Problems (Last Reviewed 08/01/19 @ 12:44 by Dee Mukherjee) Foot ulcer, left (Acute) Left leg and foot cellulitis (Acute) Pneumonia (Acute) Hypoxia (Acute) Hypoglycemia (Acute) Acute Hypoxic Respiratory Failure-Multifactorial -flash pulm edema/Acute B PNA/AECOPD -now on BIPAP with FiO2 60% -wean as able -COVID was neg -Urinary Legionella and streptococcal antigen negative -resp viral PCR neg -will deescalte to [facility] only for abx day 47 -possible HD today for volume removal -continue solumedrol but decrease to 40 BID DKA -resolved -off ggt and 10 u lantus given this am -pt is on D10 ggt as well to maintain BGT DM-1 with severe Hypoglycemia -2/2 Insulin pump failure, gastroparesis and ESRD -Lantus 10 u given this am -D10 for now -NPO as pt did poorly with [employer] eval -monitor BGT and labs Dysphagia -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 -did not do well yesterday with eval ESRD on HD -possible HD today for volume removal with flash pulm edema -typically TRS HD -Nephro is following Thrombocytopenia -suspected to be related to sepsis -overall stable -restart DVT prophylaxis today and monitor closely Anemia of Chronic Renal Disease -hgb is stable -monitor Myasthenia gravis -continue pyridostigmine Severe PAD -asa and plavix -s/p L BKA HTN -prn labetalol q 4 hrs 40 mg Depression -meds on hold until able to take PO Hypothyroidism -synthroid when able to take PO Severe Malnutrition -dietitian consulted -NPO at this time -start PO as soon as possible DVT Prophylaxis -Restart heparin BID -watch plts Code status -Full Inpatient E&M: 65359 Subs Hosp L3
[2020-02-25] MEDS: Sodium Chloride 19.25 MEQ in Dextrose 10%-Water 250 ML 20 MEQ IV (07:46)
[2020-02-25] MEDS: 0.9% Saline Lock 10 ML Syringe IV (08:17)
[2020-02-25] MEDS: Haloperidol Lactate 5 MG/ML Vial 3 MG IV (08:17)
[2020-02-25 08:33] LABS: Hep C Antibodies <0.1 s/co ratio (0.0-0.9)
[2020-02-25 10:41] LABS: Bedside Glucose 128 mg/dL (70-110)
--- NOTE | 2020-02-25 11:07 | PCM.PN.REN ---
Patient Problems: Active and Suspected Problems (Last Reviewed 08/01/19 @ 12:44 by Dee Mukherjee) Foot ulcer, left (Acute) Left leg and foot cellulitis (Acute) Pneumonia (Acute) Hypoxia (Acute) Hypoglycemia (Acute) - Physical Exam Vitals/I&O's: Vital Signs Temp Pulse Resp BP Pulse Ox 97.4 F L 85 18 146/101 H 99 02/25/20 08:00 02/25/20 08:00 02/25/20 08:00 02/25/20 08:00 02/25/20 08:00 Oxygen Flow Rate (L/min) 15 Oxygen Delivery Method Airvo Weight: 45.2 kg Body Mass Index (BMI) 17.2 Finger Stick Blood Glucose 140 Intake and Output for Last 24 Hours 02/23/20 02/24/20 02/25/20 23:59 23:59 23:59 Intake Total 275.34 / 680.34 1398.0125 / 1398.0125 222.1425 / 222.1425 Output Total 80 / 95 2915 / 2920 5 / 5 Balance 195.34 / 585.34 -1516.9875 / -1521.9875 217.1425 / 217.1425 Microbiology Past 72 Hours 02/22/20 18:35 Urine Catheter - Catheter Streptococcus pneumoniae Antigen (M - Final 02/22/20 18:35 Urine Catheter - [place] Legionella Antigen - Final 02/22/20 15:37 Mucosa - Nasopharyngeal Respiratory Panel (PCR) - Final 02/22/20 11:50 Mucosa - Nose SARS-CoV-2 Antigen (Rapid) - Final Laboratory Results 02/24/20 04:30: Hepatitis A IgM Ab Negative, Hep Bs Antigen Negative, Hep B Core IgM Ab Negative, Hepatitis C Ab (EIA) <0.1 02/24/20 11:03: POC Glucose 216 H 02/24/20 11:58: POC Glucose 176 H 02/24/20 13:11: POC Glucose 145 H 02/24/20 14:00: Sodium 137, Potassium 3.1 L, Chloride 100, Carbon Dioxide 29.0, Anion Gap 8, BUN 13, Creatinine 1.72 H, Estim Creat Clear Calc 37.28, Est GFR (MDRD) Af Amer 56 L, Est GFR (MDRD) Non-Af 46 L, BUN/Creatinine Ratio 7.6 L, Glucose 149 H, Calcium 6.8 L 02/24/20 14:10: POC Glucose 160 H 02/24/20 15:06: POC Glucose 141 H 02/24/20 16:08: POC Glucose 147 H 02/24/20 17:12: POC Glucose 141 H 02/24/20 17:20: Sodium 139, Potassium 3.4 L, Chloride 101, Carbon Dioxide 32.0, Anion Gap 6, BUN 15, Creatinine 2.09 H, Estim Creat Clear Calc 30.68, Est GFR (MDRD) Af Amer 44 L, Est GFR (MDRD) Non-Af 37 L, BUN/Creatinine Ratio 7.2 L, Glucose 137 H, Calcium 6.9 L 02/24/20 18:15: POC Glucose 133 H 02/24/20 19:08: POC Glucose 140 H 02/24/20 20:23: POC Glucose 124 H 02/24/20 22:48: POC Glucose 154 H 02/25/20 00:27: POC Glucose 147 H 02/25/20 04:30: WBC 13.0 H, RBC 4.49 L, Hgb 12.3 L, Hct 36.9 L, MCV 82.2 D, MCH 27.4, MCHC 33.3 D, RDW Std Deviation 51.3 H, RDW Coeff of Fidel 17.5 H, Plt Count 98 L, Immature Gran % (Auto) 1.200 H, Neut % (Auto) 92.5 H, Lymph % (Auto) 3.3 L, [place] % (Auto) 2.8, Eos % (Auto) 0.0, Baso % (Auto) 0.2, Absolute Neuts (auto) 12.0 H, Absolute Lymphs (auto) 0.43 L, Nucleated RBC % 0 02/25/20 04:30: Sodium 136, Potassium 3.5, Chloride 98, Carbon Dioxide 28.0, Anion Gap 10, BUN 18, Creatinine 2.36 H, Estim Creat Clear Calc 25.27, Est GFR (MDRD) Af Amer 39 L, Est GFR (MDRD) Non-Af 32 L, BUN/Creatinine Ratio 7.6 L, Glucose 166 H, Calcium 7.1 L, Phosphorus 3.2, Total Bilirubin 0.40, AST 39 H, ALT 49, Alkaline Phosphatase 424 H, Total Protein 6.3 L, Albumin 2.0 L, Globulin 4.3 H, Albumin/Globulin Ratio 0.5 L 02/25/20 10:27: POC Glucose 128 H Current Medications Acetaminophen (Acetaminophen 650 Mg/20 Ml Udc) 650 mg GT Q6H PRN PRN PRN Reason: Pain Score 1-10/Temp > 100.7 F Last Admin: 02/23/20 18:11 Dose: 650 mg Documented by: Albuterol Sulfate (Albuterol 2.5 Mg/3 Ml Vial.Neb.) 2.5 mg INHALATION Q2H PRN PRN PRN Reason: Shortness of Breath/Wheezing Last Admin: 02/25/20 05:37 Dose: 2.5 mg Documented by: Albuterol/Ipratropium (Ipratropium/Albuterol Sulfate 3 Ml Ampul.Neb) 3 ml INHALATION Q4HWA.RT [facility] Last Admin: 02/25/20 06:46 Dose: 3 ml Documented by: Amitriptyline HCl (Amitriptyline 10 Mg Tablet) 20 mg PO QHS [facility] Last Admin: 02/24/20 20:27 Dose: Not Given Documented by: Aspirin (Aspirin 81 Mg Tab.Chew) 81 mg PO DAILY@0800 [facility] Last Admin: 02/25/20 07:48 Dose: Not Given Documented by: Bupropion HCl (Bupropion (Sr) 150 Mg Tablet.Sa) 150 mg PO BID [facility] Last Admin: 02/25/20 10:30 Dose: Not Given Documented by: Calcium Acetate (Calcium Acetate 667 Mg Capsule) 667 mg PO TIDCM [facility] Last Admin: 02/25/20 07:48 Dose: Not Given Documented by: Cholestyramine Resin (Cholestyramine/Sucrose 4 Gm/Packet) 4 gm PO BIDCM [facility] Last Admin: 02/25/20 07:48 Dose: Not Given Documented by: Clopidogrel Bisulfate (Clopidogrel Bisulfate 75 Mg Tablet) 75 mg PO DAILY [facility] Last Admin: 02/25/20 10:30 Dose: Not Given Documented by: Dextrose (Dextrose 50%-Water 25 Gm/50 Ml Disp.Syrin) 0 gm IV X1 PRN; Protocol PRN Reason: HYPOGLYCEMIA Glucagon (Glucagon 1 Mg/Ml Syringe) 1 mg IM .X1 PRN PRN Reason: Hypoglycemia Heparin Sodium (Porcine) (Heparin Injection (Vial) 5,000 Unit/Ml Vial) 5,000 unit SC Q12 [facility] Sodium Chloride () 250 mls @ 15 mls/hr IV .[id number] PRN PRN Reason: Saline Flush Sodium Chloride () 250 mls @ 15 mls/hr IV .[id number] PRN PRN Reason: Additional IVPB Infusion Sodium Chloride 19.25 meq/ (Dextrose) 254.8125 mls @ 20 mls/hr IV .[id number] [facility] Stop: 02/26/20 14:00 Last Admin: 02/25/20 07:46 Dose: 20 mls/hr Documented by: Ampicillin Sodium/Sulbactam (Sodium 3 gm/ Sodium Chloride) 112 mls @ 150 mls/hr IV Q24H [facility] Insulin Human Lispro (Insulin Lispro 100 Unit/Ml Insuln.Pen) 0 unit SC Q4 [facility]; Protocol Last Admin: 02/25/20 05:20 Dose: 2 u Documented by: Labetalol HCl (Labetalol (Prefilled) 20 Mg/4 Ml) 40 mg IV Q4H PRN PRN PRN Reason: SBP > 160 Levothyroxine Sodium (Levothyroxine 50 Mcg Tablet) 50 mcg PO DAILY@0600 [facility] Last Admin: 02/25/20 07:33 Dose: Not Given Documented by: Methylprednisolone (Methylprednisolone 40 Mg/Ml Vial) 40 mg IV Q12 [facility] Metoprolol Tartrate (Metoprolol Tartrate 25 Mg Tablet) 25 mg PO BID [facility] Last Admin: 02/25/20 10:29 Dose: Not Given Documented by: Montelukast Sodium (Montelukast 10 Mg Tablet) 10 mg PO QHS [facility] Last Admin: 02/24/20 20:27 Dose: Not Given Documented by: Multivit/Ca Carb/B Cmplx/FA/Prenat (Folic Acid/Vitamin B Comp W-C 1 Capsule) 1 capsule PO DAILY [facility] Last Admin: 02/25/20 10:30 Dose: Not Given Documented by: Nitroglycerin (Nitroglycerin (Inpatient Use) 0.4 Mg Tab.Subl) 0.4 mg SUBLINGUAL Q5M PRN PRN Reason: CARDIAC/CHEST PAIN Ondansetron HCl (Ondansetron 4 Mg/2 Ml Vial) 4 mg IV Q8H PRN PRN PRN Reason: NAUSEA/VOMITING Pantoprazole Sodium (Pantoprazole Sodium 40 Mg Tablet) 40 mg PO DAILY [facility] Last Admin: 02/25/20 10:30 Dose: Not Given Documented by: Pyridostigmine [place] (Pyridostigmine [place] 60 Mg Tablet) 60 mg PO DAILY [facility] Last Admin: 02/25/20 10:29 Dose: Not Given Documented by: Sodium Chloride (0.9% Saline Lock 10 Ml Syringe) 10 - 40 ml IV UD PRN PRN Reason: SALINE FLUSH Last Admin: 02/25/20 08:17 Dose: 10 ml Documented by: Medical Necessity - Tobacco Use Smoking Status: Current every day smoker Tobacco Use: Cigarettes Assessment/Plan All Active Problems (Last Reviewed 08/01/19 @ 12:44 by Dee Mukherjee) Foot ulcer, left (Acute) Left leg and foot cellulitis (Acute) Pneumonia (Acute) Hypoxia (Acute) Hypoglycemia (Acute)
--- NOTE | 2020-02-25 11:08 | PCM.PN.REN ---
Patient Problems: Active and Suspected Problems (Last Reviewed 08/01/19 @ 12:44 by Dee Mukherjee) Foot ulcer, left (Acute) Left leg and foot cellulitis (Acute) Pneumonia (Acute) Hypoxia (Acute) Hypoglycemia (Acute) Subjective: back on BIPAP for pulmonary edema. Chest heaviness all day. Off D10 and insulin drip for DKA. HD yesterday with 2.8L off. Will UF today as tolerated for respiratory distress. - Physical Exam Vitals/I&O's: Vital Signs Temp Pulse Resp BP Pulse Ox 97.4 F L 85 18 146/101 H 99 02/25/20 08:00 02/25/20 08:00 02/25/20 08:00 02/25/20 08:00 02/25/20 08:00 Oxygen Flow Rate (L/min) 15 Oxygen Delivery Method Airvo Weight: 45.2 kg Body Mass Index (BMI) 17.2 Finger Stick Blood Glucose 140 Intake and Output for Last 24 Hours 02/23/20 02/24/20 02/25/20 23:59 23:59 23:59 Intake Total 275.34 / 680.34 1398.0125 / 1398.0125 222.1425 / 222.1425 Output Total 80 / 95 2915 / 2920 5 / 5 Balance 195.34 / 585.34 -1516.9875 / -1521.9875 217.1425 / 217.1425 General: Alert, Oriented x3, Cooperative, - - on airvo Oral: Dry Mucosa Lungs: Rales Cardiovascular: Regular rate Abdomen: Bowel Sounds Present, Soft, Non Tender, Non-Distended Extremities: No edema Psych/Mental Status: Alert and oriented to time, place, person, mood and affect Microbiology Past 72 Hours 02/22/20 18:35 Urine Catheter - Catheter Streptococcus pneumoniae Antigen (M - Final 02/22/20 18:35 Urine Catheter - [place] Legionella Antigen - Final 02/22/20 15:37 Mucosa - Nasopharyngeal Respiratory Panel (PCR) - Final 02/22/20 11:50 Mucosa - Nose SARS-CoV-2 Antigen (Rapid) - Final Laboratory Results 02/24/20 04:30: Hepatitis A IgM Ab Negative, Hep Bs Antigen Negative, Hep B Core IgM Ab Negative, Hepatitis C Ab (EIA) <0.1 02/24/20 11:03: POC Glucose 216 H 02/24/20 11:58: POC Glucose 176 H 02/24/20 13:11: POC Glucose 145 H 02/24/20 14:00: Sodium 137, Potassium 3.1 L, Chloride 100, Carbon Dioxide 29.0, Anion Gap 8, BUN 13, Creatinine 1.72 H, Estim Creat Clear Calc 37.28, Est GFR (MDRD) Af Amer 56 L, Est GFR (MDRD) Non-Af 46 L, BUN/Creatinine Ratio 7.6 L, Glucose 149 H, Calcium 6.8 L 02/24/20 14:10: POC Glucose 160 H 02/24/20 15:06: POC Glucose 141 H 02/24/20 16:08: POC Glucose 147 H 02/24/20 17:12: POC Glucose 141 H 02/24/20 17:20: Sodium 139, Potassium 3.4 L, Chloride 101, Carbon Dioxide 32.0, Anion Gap 6, BUN 15, Creatinine 2.09 H, Estim Creat Clear Calc 30.68, Est GFR (MDRD) Af Amer 44 L, Est GFR (MDRD) Non-Af 37 L, BUN/Creatinine Ratio 7.2 L, Glucose 137 H, Calcium 6.9 L 02/24/20 18:15: POC Glucose 133 H 02/24/20 19:08: POC Glucose 140 H 02/24/20 20:23: POC Glucose 124 H 02/24/20 22:48: POC Glucose 154 H 02/25/20 00:27: POC Glucose 147 H 02/25/20 04:30: WBC 13.0 H, RBC 4.49 L, Hgb 12.3 L, Hct 36.9 L, MCV 82.2 D, MCH 27.4, MCHC 33.3 D, RDW Std Deviation 51.3 H, RDW Coeff of Fidel 17.5 H, Plt Count 98 L, Immature Gran % (Auto) 1.200 H, Neut % (Auto) 92.5 H, Lymph % (Auto) 3.3 L, [place] % (Auto) 2.8, Eos % (Auto) 0.0, Baso % (Auto) 0.2, Absolute Neuts (auto) 12.0 H, Absolute Lymphs (auto) 0.43 L, Nucleated RBC % 0 02/25/20 04:30: Sodium 136, Potassium 3.5, Chloride 98, Carbon Dioxide 28.0, Anion Gap 10, BUN 18, Creatinine 2.36 H, Estim Creat Clear Calc 25.27, Est GFR (MDRD) Af Amer 39 L, Est GFR (MDRD) Non-Af 32 L, BUN/Creatinine Ratio 7.6 L, Glucose 166 H, Calcium 7.1 L, Phosphorus 3.2, Total Bilirubin 0.40, AST 39 H, ALT 49, Alkaline Phosphatase 424 H, Total Protein 6.3 L, Albumin 2.0 L, Globulin 4.3 H, Albumin/Globulin Ratio 0.5 L 02/25/20 10:27: POC Glucose 128 H Clinical Impression(s) from Imaging Studies Chest X-Ray 02/24/20 15:32 IMPRESSION: 1. Removal of the endotracheal tube and nasogastric tube present on the earlier study. 2. Marked improvement in the upper lobe pulmonary infiltrates. 3. Persistent pleural effusions with atelectasis versus infiltrate at the right lung base Electronically Signed: Eduin Kaplan DO at 17:04 EST Tel [phone], Service support , Chest X-Ray 02/25/20 06:00 IMPRESSION: Little change compared to prior. Persistent bilateral alveolar opacities which could represent bilateral pneumonia or edema. Small pleural effusions. Electronically Signed: Shankar Valdez, at 7:14 EST Tel , Service support , Current Medications Acetaminophen (Acetaminophen 650 Mg/20 Ml [facility] [place]) 650 mg GT Q6H PRN PRN PRN Reason: Pain Score 1-10/Temp > 100.7 F Last Admin: 02/23/20 18:11 Dose: 650 mg Documented by: Albuterol Sulfate (Albuterol 2.5 Mg/3 Ml Vial.Neb.) 2.5 mg INHALATION Q2H PRN PRN PRN Reason: Shortness of Breath/Wheezing Last Admin: 02/25/20 05:37 Dose: 2.5 mg Documented by: Albuterol/Ipratropium (Ipratropium/Albuterol Sulfate 3 Ml Ampul.Neb) 3 ml INHALATION Q4HWA.RT [place] Last Admin: 02/25/20 06:46 Dose: 3 ml Documented by: Amitriptyline HCl (Amitriptyline 10 Mg Tablet) 20 mg PO QHS COUNT INCLUDES THE [facility] Last Admin: 02/24/20 20:27 Dose: Not Given Documented by: Aspirin (Aspirin 81 Mg Tab.Chew) 81 mg PO DAILY@0800 COUNT INCLUDES THE [facility] Last Admin: 02/25/20 07:48 Dose: Not Given Documented by: Bupropion HCl (Bupropion (Sr) 150 Mg Tablet.Sa) 150 mg PO BID COUNT INCLUDES THE [facility] Last Admin: 02/25/20 10:30 Dose: Not Given Documented by: Calcium Acetate (Calcium Acetate 667 Mg Capsule) 667 mg PO TIDCM COUNT INCLUDES THE [facility] Last Admin: 02/25/20 07:48 Dose: Not Given Documented by: Cholestyramine Resin (Cholestyramine/Sucrose 4 Gm/Packet) 4 gm PO BIDCM COUNT INCLUDES THE [facility] Last Admin: 02/25/20 07:48 Dose: Not Given Documented by: Clopidogrel Bisulfate (Clopidogrel Bisulfate 75 Mg Tablet) 75 mg PO DAILY COUNT INCLUDES THE [facility] Last Admin: 02/25/20 10:30 Dose: Not Given Documented by: Dextrose (Dextrose 50%-Water 25 Gm/50 Ml Disp.Syrin) 0 gm IV X1 PRN; Protocol PRN Reason: HYPOGLYCEMIA Glucagon (Glucagon 1 Mg/Ml Syringe) 1 mg IM .X1 PRN PRN Reason: Hypoglycemia Heparin Sodium (Porcine) (Heparin Injection (Vial) 5,000 Unit/Ml Vial) 5,000 unit SC Q12 COUNT INCLUDES THE [facility] Sodium Chloride () 250 mls @ 15 mls/hr IV .[id number] PRN PRN Reason: Saline Flush Sodium Chloride () 250 mls @ 15 mls/hr IV .[id number] PRN PRN Reason: Additional IVPB Infusion Sodium Chloride 19.25 meq/ (Dextrose) 254.8125 mls @ 20 mls/hr IV .[id number] COUNT INCLUDES THE [facility] Stop: 02/26/20 14:00 Last Admin: 02/25/20 07:46 Dose: 20 mls/hr Documented by: Ampicillin Sodium/Sulbactam (Sodium 3 gm/ Sodium Chloride) 112 mls @ 150 mls/hr IV Q24H COUNT INCLUDES THE [facility] Insulin Human Lispro (Insulin Lispro 100 Unit/Ml Insuln.Pen) 0 unit SC Q4 COUNT INCLUDES THE [facility]; Protocol Last Admin: 02/25/20 05:20 Dose: 2 u Documented by: Labetalol HCl (Labetalol (Prefilled) 20 Mg/4 Ml) 40 mg IV Q4H PRN PRN PRN Reason: SBP > 160 Levothyroxine Sodium (Levothyroxine 50 Mcg Tablet) 50 mcg PO DAILY@0600 COUNT INCLUDES THE [facility] Last Admin: 02/25/20 07:33 Dose: Not Given Documented by: Methylprednisolone (Methylprednisolone 40 Mg/Ml Vial) 40 mg IV Q12 COUNT INCLUDES THE [facility] Metoprolol Tartrate (Metoprolol Tartrate 25 Mg Tablet) 25 mg PO BID COUNT INCLUDES THE [facility] Last Admin: 02/25/20 10:29 Dose: Not Given Documented by: Montelukast Sodium (Montelukast 10 Mg Tablet) 10 mg PO QHS COUNT INCLUDES THE [facility] Last Admin: 02/24/20 20:27 Dose: Not Given Documented by: Multivit/Ca Carb/B Cmplx/FA/Prenat (Folic Acid/Vitamin B Comp W-C 1 Capsule) 1 capsule PO DAILY COUNT INCLUDES THE [facility] Last Admin: 02/25/20 10:30 Dose: Not Given Documented by: Nitroglycerin (Nitroglycerin (Inpatient Use) 0.4 Mg Tab.Subl) 0.4 mg SUBLINGUAL Q5M PRN PRN Reason: CARDIAC/CHEST PAIN Ondansetron HCl (Ondansetron 4 Mg/2 Ml Vial) 4 mg IV Q8H PRN PRN PRN Reason: NAUSEA/VOMITING Pantoprazole Sodium (Pantoprazole Sodium 40 Mg Tablet) 40 mg PO DAILY COUNT INCLUDES THE [facility] Last Admin: 02/25/20 10:30 Dose: Not Given Documented by: Pyridostigmine [place] (Pyridostigmine [place] 60 Mg Tablet) 60 mg PO DAILY COUNT INCLUDES THE [facility] Last Admin: 02/25/20 10:29 Dose: Not Given Documented by: Sodium Chloride (0.9% Saline Lock 10 Ml Syringe) 10 - 40 ml IV UD PRN PRN Reason: SALINE FLUSH Last Admin: 02/25/20 08:17 Dose: 10 ml Documented by: Medical Necessity - Tobacco Use Smoking Status: Current every day smoker Tobacco Use: Cigarettes Assessment/Plan All Active Problems (Last Reviewed 08/01/19 @ 12:44 by Dee Mukherjee) Foot ulcer, left (Acute) Left leg and foot cellulitis (Acute) Pneumonia (Acute) Hypoxia (Acute) Hypoglycemia (Acute) 1. ESRD HD MWF. 2.8L fluid removed yesterday. UF today for pulmonary edema. 2. Bilateral pleural effusion with alveolar infiltrates. UF today. 3. DKA off insulin drip and D10 4. DM type 1 with left BKA 5. HTN adjust BP medications as needed. DW nursing staff
[2020-02-25] MEDS: Heparin Injection (Vial) 5,000 UNIT/ML VIAL 5000 UNIT SC ×2 (11:40→20:37)
--- NOTE | 2020-02-25 12:59 | CASEMGMT ---
RN CM Assessment Note Chart reviewed. Unable to speak with pt currently as he is still on Bipap. Will speak with pt when he is able to participated. Per PT/OT patient is max assist currently. -Participated in ICU interdisciplinary rounds. Oxygen needs Bipap and airvo. Failed mobility screening so PT/OT on hold today. Remains on IV Solu-Medrol, antibiotic and will receive UF today for pulmonary edema. Presentation: shortness of breath Diagnosis: respiratory failure, pneumonia, hypoglycemia, metabolic encephalopathy PCP: Dr. Graham Specialists: nephrology Dialysis: MWF @ [facility]. Not always compliant with dialysis. Transportation provided through [employer]. (If patient becomes covid +, would need to change dialysis facilities.) [facility] Preferred Pharmacy: [facility] Prescription Benefit: yes LNOK: other Living Arrangements: one story home, lives alone. Currently patient is max assist of 2 for activity. Pt has a walker and prosthesis for BKA Tranportation: [employer] provides transportation DME: wheeled walker, prosthetic HHC: unknown SNF: unknown DC Plan: undetermined. Pt remains on Bipap and unable to participate fully in PT/OT. Will continue to follow and assist with dc needs. Contact CM for any concerns/needs that may arise. Cari ZACARIAS RN ACM
[2020-02-25 14:06] LABS: Bedside Glucose 126 mg/dL (70-110)
[2020-02-25] MEDS: Metoprolol Tartrate 25 MG Tablet PO ×2 (15:31→20:47)
[2020-02-25] MEDS: Clopidogrel Bisulfate 75 MG Tablet PO (15:32)
[2020-02-25] MEDS: Folic Acid/Vitamin B Comp W-C 1 Capsule 1 CAP PO (15:32)
[2020-02-25] MEDS: Pantoprazole Sodium 40 MG Tablet PO (15:32)
[2020-02-25] MEDS: buPROPion (SR) 150 MG Tablet.SA PO ×2 (15:33→20:47)
[2020-02-25] MEDS: Aspirin 81 MG TAB.CHEW PO (15:33)
[2020-02-25] MEDS: Levothyroxine 50 MCG Tablet PO (15:33)
[2020-02-25] MEDS: Pyridostigmine Bromide 60 MG Tablet PO (15:33)
--- NOTE | 2020-02-25 16:14 | DIALYSIS ---
2 hours ultrafiltration treatment complete via left forearm AV fistula with 2 liters fluid removed. Stasis obtained after dialysis needles removed. Pt tolerated treatment without difficulty.
[2020-02-25 18:20] LABS: Bedside Glucose 244 mg/dL (70-110)
[2020-02-25] MEDS: Calcium Acetate 667 MG Capsule PO (18:30)
--- NOTE | 2020-02-25 18:33 | NURSING ---
ed on chronic illness deferred till acute illness resolving
--- NOTE | 2020-02-25 18:54 | NURSING ---
Addendum entered by Zulema Heart 02/26/20 15:39: The below note documented by Rima Dallas was documented in the wrong pts chart. This note does not pertain to Mr. Flores. Original Note: 1809-Discussed patient status with Marianna, Guardian. She decided to go ahead and make patient DNR Comfort Care Only. Verified with Marleen JUNG. Dr. Vang notified. New orders to be given.
[2020-02-25] MEDS: Montelukast 10 MG Tablet PO (20:47)
[2020-02-25] MEDS: Amitriptyline 10 MG Tablet 20 MG PO (20:47)
[2020-02-25 21:01] LABS: Bedside Glucose 185 mg/dL (70-110)
[2020-02-26] VITALS (29 sets, daily range): BP systolic 102–161; BP diastolic 47–110; PULSE 73–103; RESP 12–30; TEMP 36.3–36.9; O2SAT 92–99
[2020-02-26] MEDS: Insulin Lispro 100 UNIT/ML INSULN.PEN SC ×2 (01:34→18:00)
[2020-02-26 01:41] LABS: Bedside Glucose 176 mg/dL (70-110)
[2020-02-26] MEDS: Albuterol 2.5 MG/3 ML VIAL.NEB. INHALATION (02:15)
[2020-02-26] MEDS: LORazepam 0.5 MG Tablet PO (02:46)
[2020-02-26 05:43] LABS: Absolute Lymphocyte Count 0.33 X10^3/uL (0.83-4.51); Absolute Neutrophil Count 7.7 X10^3/uL (2.0-7.7); Eosinophil# 0.01 X10^3/uL; Eosinophils% 0.1 % (0-5); Hematocrit 36.4 % (40-54); Hemoglobin 11.8 g/dL (13.0-16.5); Lymphocyte # 0.33 X10^3/ul (4.0); Mean Corp Hgb Conc 32.4 g/dL (32-36); Mean Corpuscular Hgb 26.8 pg (27.0-32.0); Mean Corpuscular Volume 82.5 fL (80-94); Monocyte# 0.28 X10^3/uL; Monocyte% 3.4 % (0-10); NRBC Flagged by Analyzer 0 % (0-5); Neutrophil # 7.65 X10^3/uL (2.7-7.7); Neutrophil % 91.7 % (47-70); POSITIVE COUNT YES; POSITIVE DIFFERENTIAL YES; Platelet Count 67 K/mm3 (150-450); RBC Distribution Width CV 17.7 % (11.6-14.6); RBC Distribution Width SD 52.4 fl (35.1-43.9); Red Blood Count 4.41 M/mm3 (4.6-6.2); White Blood Count 8.3 K/mm3 (4.4-11.0)
[2020-02-26 05:50] LABS: Differential Indicated SCAN CRITERIA MET
[2020-02-26 05:57] LABS: ALB/GLOB Ratio 0.4 RATIO (0.9-2.4); AST(SGOT) 34 U/L (15-37); Alanine Aminotransfer ALT/SGPT 42 U/L (16-61); Albumin, Serum 1.6 g/dL (3.2-5.0); Alkaline Phosphatase 362 U/L (45-117); Anion Gap 7 (5-15); BUN 23 mg/dL (7-18); Calcium,Total 7.3 mg/dL (8.5-10.1); Chloride 103 mmol/L (98-107); Creatinine, Serum 2.87 mg/dL (0.70-1.30); EST Glomerular Filtration Rate 25 mL/min (>60); Est Glom Filt Rate - Afr Amer 31 mL/min (>60); Estimated Creatinine Clearance 20.78 ml/min; Globulin 4.1 g/dL (2.2-4.2); Glucose 148 mg/dL (74-106); Phosphorus 2.6 mg/dL (2.5-4.9); Potassium 3.3 mmol/L (3.5-5.1); Protein, Total 5.7 g/dL (6.4-8.2); Sodium Level 139 mmol/L (136-145)
--- NOTE | 2020-02-26 07:16 | PN_ITS ---
Patient Problems: Active and Suspected Problems (Last Reviewed 08/01/19 @ 12:44 by Dee Mukherjee) Foot ulcer, left (Acute) Left leg and foot cellulitis (Acute) Pneumonia (Acute) Hypoxia (Acute) Hypoglycemia (Acute) Subjective: Pt received 1 dose of ativan overnight. Sleepy this am but awakens and does state that he feels a bit better. No distress. happy to be able to eat some now. Vitals/I&O's: Vital Signs Temp Pulse Resp BP Pulse Ox 97.9 F 91 12 154/98 H 99 02/26/20 00:00 02/26/20 06:00 02/26/20 06:00 02/26/20 06:00 02/26/20 06:00 Oxygen Flow Rate (L/min) 60 Oxygen Delivery Method Airvo Weight: 45.2 kg Body Mass Index (BMI) 17.2 Finger Stick Blood Glucose 140 Intake and Output for Last 24 Hours 02/24/20 02/25/20 02/26/20 23:59 23:59 23:59 Intake Total 1398.0125 / 1398.0125 583.4725 / 583.4725 Output Total 2915 / 2920 2004 0 / 0 Balance -1516.9875 / -1521.9875 -1421.5275 / -1421.5275 0 / 0 General: Cooperative, No apparent distress, - - sleeping but awakens for exam, calm HEENT: Atraumatic, PERRLA, EOMI, Normocephalic, EAC Clear Oral: Moist Mucosa, - - thrush+ Neck: Supple, No JVD, Negative Carotid Bruits, No Nodes, Trachea Midline, Thyroid Normal Size and Texture Lungs: No rhonchi, No rales, Diminished - diffusely, Wheezes - few scattered Cardiovascular: Regular rate, Regular Rhythm, Normal S1, Normal S2, No murmurs, No Ectopic Activity, No rub noted, No Gallop Abdomen: Bowel Sounds Present, Soft, Non Tender, Non-Distended, No Hepato- splenomegaly, No hernias noted, - - thin Extremities: No clubbing, No cyanosis, No edema, Capillary Refill Less than 3 Seconds, Peripheral Pulses Normal - UE only Skin: No breakdown, Excoriated - B LE Musculoskeletal: No Tenderness to Palpation of Joints or Extremities, Muscle Wasting - diffuse, - - BKA on L Lymphatic: No Cervical, Supraclavicular, or Inguinal Adenopathy Neurological: Cranial nerves II-XII grossly intact, Neuro grossly intact, Muscle tone normal, Coordination normal Psych/Mental Status: Flat Affect Laboratory Results 02/24/20 04:30: Hepatitis A IgM Ab Negative, Hep Bs Antigen Negative, Hep B Core IgM Ab Negative, Hepatitis C Ab (EIA) <0.1 02/25/20 10:27: POC Glucose 128 H 02/25/20 13:59: POC Glucose 126 H 02/25/20 18:16: POC Glucose 244 H 02/25/20 20:35: POC Glucose 185 H 02/26/20 01:30: POC Glucose 176 H 02/26/20 05:30: WBC 8.3, RBC 4.41 L, Hgb 11.8 L, Hct 36.4 L, MCV 82.5, MCH 26.8 L, MCHC 32.4, RDW Std Deviation 52.4 H, RDW Coeff of Fidel 17.7 H, Plt Count 67 L, Immature Gran % (Auto) 0.800, Neut % (Auto) 91.7 H, Lymph % (Auto) 4.0 L, [place] % (Auto) 3.4, Eos % (Auto) 0.1, Baso % (Auto) 0.0, Absolute Neuts (auto) 7.7, Absolute Lymphs (auto) 0.33 L, Nucleated RBC % 0 02/26/20 05:30: Sodium 139, Potassium 3.3 L, Chloride 103, Carbon Dioxide 29.0, Anion Gap 7, BUN 23 H, Creatinine 2.87 H, Estim Creat Clear Calc 20.78, Est GFR (MDRD) Af Amer 31 L, Est GFR (MDRD) Non-Af 25 L, BUN/Creatinine Ratio 8.0 L, Glucose 148 H, Calcium 7.3 L, Phosphorus 2.6, Total Bilirubin 0.40, AST 34, ALT 42, Alkaline Phosphatase 362 H, Total Protein 5.7 L, Albumin 1.6 L, Globulin 4.1, Albumin/Globulin Ratio 0.4 L Current Medications Acetaminophen (Acetaminophen 650 Mg/20 Ml Udc) 650 mg GT Q6H PRN PRN PRN Reason: Pain Score 1-10/Temp > 100.7 F Last Admin: 02/23/20 18:11 Dose: 650 mg Documented by: Albuterol Sulfate (Albuterol 2.5 Mg/3 Ml Vial.Neb.) 2.5 mg INHALATION Q2H PRN PRN PRN Reason: Shortness of Breath/Wheezing Last Admin: 02/26/20 02:15 Dose: 2.5 mg Documented by: Albuterol/Ipratropium (Ipratropium/Albuterol Sulfate 3 Ml Ampul.Neb) 3 ml INHALATION Q4HWA.RT [facility] Last Admin: 02/25/20 19:02 Dose: 3 ml Documented by: Amitriptyline HCl (Amitriptyline 10 Mg Tablet) 20 mg PO QHS [facility] Last Admin: 02/25/20 20:47 Dose: 20 mg Documented by: Aspirin (Aspirin 81 Mg Tab.Chew) 81 mg PO DAILY@0800 [facility] Last Admin: 02/25/20 15:33 Dose: 81 mg Documented by: Bupropion HCl (Bupropion (Sr) 150 Mg Tablet.Sa) 150 mg PO BID [facility] Last Admin: 02/25/20 20:47 Dose: 150 mg Documented by: Calcium Acetate (Calcium Acetate 667 Mg Capsule) 667 mg PO TIDCM [facility] Last Admin: 02/25/20 18:30 Dose: 667 mg Documented by: Cholestyramine Resin (Cholestyramine/Sucrose 4 Gm/Packet) 4 gm PO BIDCM [facility] Last Admin: 02/25/20 18:32 Dose: Not Given Documented by: Clopidogrel Bisulfate (Clopidogrel Bisulfate 75 Mg Tablet) 75 mg PO DAILY [facility] Last Admin: 02/25/20 15:32 Dose: 75 mg Documented by: Dextrose (Dextrose 50%-Water 25 Gm/50 Ml Disp.Syrin) 0 gm IV X1 PRN; Protocol PRN Reason: HYPOGLYCEMIA Glucagon (Glucagon 1 Mg/Ml Syringe) 1 mg IM .X1 PRN PRN Reason: Hypoglycemia Heparin Sodium (Porcine) (Heparin Injection (Vial) 5,000 Unit/Ml Vial) 5,000 unit SC Q12 [facility] Last Admin: 02/25/20 20:37 Dose: 5,000 unit Documented by: Sodium Chloride () 250 mls @ 15 mls/hr IV .[id number] PRN PRN Reason: Saline Flush Sodium Chloride () 250 mls @ 15 mls/hr IV .[id number] PRN PRN Reason: Additional IVPB Infusion Sodium Chloride 19.25 meq/ (Dextrose) 254.8125 mls @ 20 mls/hr IV .[id number] [facility] Stop: 02/26/20 14:00 Last Infusion: 02/25/20 20:14 Dose: 0 mls/hr Documented by: Ampicillin Sodium/Sulbactam (Sodium 3 gm/ Sodium Chloride) 112 mls @ 150 mls/hr IV Q24H [facility] Last Infusion: 02/25/20 20:16 Dose: Infused Documented by: Insulin Human Lispro (Insulin Lispro 100 Unit/Ml Insuln.Pen) 0 unit SC Q4 [facility]; Protocol Last Admin: 02/26/20 01:34 Dose: 2 u Documented by: Labetalol HCl (Labetalol (Prefilled) 20 Mg/4 Ml) 40 mg IV Q4H PRN PRN PRN Reason: SBP > 160 Levothyroxine Sodium (Levothyroxine 50 Mcg Tablet) 50 mcg PO DAILY@0600 [facility] Last Admin: 02/25/20 15:33 Dose: 50 mcg Documented by: Melatonin (Melatonin 3 Mg Tablet) 3 mg PO QHS PRN PRN Reason: SLEEP Methylprednisolone (Methylprednisolone 40 Mg/Ml Vial) 40 mg IV Q12 [facility] Last Admin: 02/25/20 20:43 Dose: 40 mg Documented by: Metoprolol Tartrate (Metoprolol Tartrate 25 Mg Tablet) 25 mg PO BID [facility] Last Admin: 02/25/20 20:47 Dose: 25 mg Documented by: Montelukast Sodium (Montelukast 10 Mg Tablet) 10 mg PO QHS [facility] Last Admin: 02/25/20 20:47 Dose: 10 mg Documented by: Multivit/Ca Carb/B Cmplx/FA/Prenat (Folic Acid/Vitamin B Comp W-C 1 Capsule) 1 capsule PO DAILY [facility] Last Admin: 02/25/20 15:32 Dose: 1 capsule Documented by: Nitroglycerin (Nitroglycerin (Inpatient Use) 0.4 Mg Tab.Subl) 0.4 mg SUBLINGUAL Q5M PRN PRN Reason: CARDIAC/CHEST PAIN Ondansetron HCl (Ondansetron 4 Mg/2 Ml Vial) 4 mg IV Q8H PRN PRN PRN Reason: NAUSEA/VOMITING Pantoprazole Sodium (Pantoprazole Sodium 40 Mg Tablet) 40 mg PO DAILY [facility] Last Admin: 12/01/20 15:32 Dose: 40 mg Documented by: Pyridostigmine [place] (Pyridostigmine [place] 60 Mg Tablet) 60 mg PO DAILY [facility] Last Admin: 02/25/20 15:33 Dose: 60 mg Documented by: Sodium Chloride (0.9% Saline Lock 10 Ml Syringe) 10 - 40 ml IV UD PRN PRN Reason: SALINE FLUSH Last Admin: 02/25/20 08:17 Dose: 10 ml Documented by: STROKE Vital Signs/Narrative: Vital Signs Pulse Resp BP Pulse Ox 02/26/20 06:00 91 12 154/98 H 99 02/26/20 05:05 74 02/26/20 05:00 77 12 151/101 H 98 02/26/20 04:00 73 15 128/93 H 99 Medical Necessity - Tobacco Use Smoking Status: Current every day smoker Tobacco Use: Cigarettes Assessment/Plan All Active Problems (Last Reviewed 08/01/19 @ 12:44 by Dee Mukherjee) Diabetic nephropathy, type I (Acute) Foot ulcer, left (Acute) Left leg and foot cellulitis (Acute) Pneumonia (Acute) Hypoxia (Acute) Hypoglycemia (Acute) Acute Hypoxic Respiratory Failure-Multifactorial -flash pulm edema/Acute B PNA/AECOPD -now on Airvo with FiO2 58% and Flow of 60 lpm--> has weaned some since yesterday -wean as able -COVID was neg 02/21 -Urinary Legionella and streptococcal antigen negative -resp viral PCR neg -Unasyn only for abx day 5/7 -UF done yesterday -continue solumedrol at 40 BID -repeat CXR in am -pulm following DKA -resolved DM-1 with severe Hypoglycemia -2/2 Insulin pump failure, gastroparesis and ESRD -Lantus 8 u ordered for daily am -passed for a Puree/NTL diet -SSI only for now and add scheduled log as needed -monitor BGT and labs Hypokalemia -replace and repeat in am -check am Mag level Thrush -add nystatin Dysphagia -[employer] to re-evaluate this am -did not do well yesterday with eval ESRD on HD -UF done yesterday -typically TRS HD -HD today -Nephro is following Thrombocytopenia -suspected to be related to sepsis -decreased today with start of heparin -d/c heparin -HIT ab ordered Anemia of Chronic Renal Disease -hgb is stable -monitor Myasthenia gravis -continue pyridostigmine Severe PAD -asa and plavix--> watch plts -s/p L BKA HTN -BP is elevated -increase Metoprolol to 75 mg BID (home dose 200 BID) -restart Amlodipine at 5 mg daily (home dose 10 mg daily) -PRN Labetalol available -monitor Depression -meds on hold until able to take PO Hypothyroidism -synthroid when able to take PO Severe Malnutrition -dietitian consulted -PO diet started DVT/GI Prophylaxis -drop in plts -stop heparin -scd's -PPI Code status -Full Inpatient E&M: 57653 Subs Hosp L3
[2020-02-26] MEDS: Ipratropium/Albuterol Sulfate 3 ML AMPUL.NEB INHALATION ×4 (07:22→19:23)
[2020-02-26 08:01] LABS: Bedside Glucose 97 mg/dL (70-110)
[2020-02-26 08:47] LABS: Vancomycin, Random Level 15.9 ug/mL (0.0-15.0)
--- NOTE | 2020-02-26 09:41 | CASEMGMT ---
Social Work Pt receives services from [facility]. Stephania Garcia is his counseling case manager and he has a medical alert but no other services currently. SW to follow for continued needs. ISA Bell
--- NOTE | 2020-02-26 10:41 | PCM.PN.REN ---
Patient Problems: Active and Suspected Problems (Last Reviewed 08/01/19 @ 12:44 by Dee Mukherjee) Foot ulcer, left (Acute) Left leg and foot cellulitis (Acute) Pneumonia (Acute) Hypoxia (Acute) Hypoglycemia (Acute) Subjective: seen on dialysis. Tolerating so far. Remains on airvo. - Physical Exam Vitals/I&O's: Vital Signs Temp Pulse Resp BP Pulse Ox 97.9 F 93 17 161/110 H 95 02/26/20 00:00 02/26/20 07:00 02/26/20 07:00 02/26/20 07:00 02/26/20 07:00 Oxygen Flow Rate (L/min) 60 Oxygen Delivery Method Airvo Weight: 45.2 kg Body Mass Index (BMI) 17.2 Finger Stick Blood Glucose 140 Intake and Output for Last 24 Hours 02/24/20 02/25/20 02/26/20 23:59 23:59 23:59 Intake Total 1398.0125 / 1398.0125 583.4725 / 583.4725 Output Total 2915 / 2920 2004 0 / 0 Balance -1516.9875 / -1521.9875 -1421.5275 / -1421.5275 0 / 0 General: - - somnolent Oral: Dry Mucosa Lungs: Rales Cardiovascular: Regular rate Abdomen: Bowel Sounds Present, Soft, Non Tender, Non-Distended Extremities: No edema Psych/Mental Status: - - somolent Laboratory Results 02/25/20 10:27: POC Glucose 128 H 02/25/20 13:59: POC Glucose 126 H 02/25/20 18:16: POC Glucose 244 H 02/25/20 20:35: POC Glucose 185 H 02/26/20 01:30: POC Glucose 176 H 02/26/20 05:30: WBC 8.3, RBC 4.41 L, Hgb 11.8 L, Hct 36.4 L, MCV 82.5, MCH 26.8 L, MCHC 32.4, RDW Std Deviation 52.4 H, RDW Coeff of Fidel 17.7 H, Plt Count 67 L, Immature Gran % (Auto) 0.800, Neut % (Auto) 91.7 H, Lymph % (Auto) 4.0 L, [place] % (Auto) 3.4, Eos % (Auto) 0.1, Baso % (Auto) 0.0, Absolute Neuts (auto) 7.7, Absolute Lymphs (auto) 0.33 L, Nucleated RBC % 0 02/26/20 05:30: Sodium 139, Potassium 3.3 L, Chloride 103, Carbon Dioxide 29.0, Anion Gap 7, BUN 23 H, Creatinine 2.87 H, Estim Creat Clear Calc 20.78, Est GFR (MDRD) Af Amer 31 L, Est GFR (MDRD) Non-Af 25 L, BUN/Creatinine Ratio 8.0 L, Glucose 148 H, Calcium 7.3 L, Phosphorus 2.6, Total Bilirubin 0.40, AST 34, ALT 42, Alkaline Phosphatase 362 H, Total Protein 5.7 L, Albumin 1.6 L, Globulin 4.1, Albumin/Globulin Ratio 0.4 L 02/26/20 07:40: Heparin-induced Plt Ab Pending 02/26/20 07:40: Random Vancomycin 15.9 H 02/26/20 07:52: POC Glucose 97 Current Medications Acetaminophen (Acetaminophen 650 Mg/20 Ml Udc) 650 mg GT Q6H PRN PRN PRN Reason: Pain Score 1-10/Temp > 100.7 F Last Admin: 02/23/20 18:11 Dose: 650 mg Documented by: Albuterol Sulfate (Albuterol 2.5 Mg/3 Ml Vial.Neb.) 2.5 mg INHALATION Q2H PRN PRN PRN Reason: Shortness of Breath/Wheezing Last Admin: 02/26/20 02:15 Dose: 2.5 mg Documented by: Albuterol/Ipratropium (Ipratropium/Albuterol Sulfate 3 Ml Ampul.Neb) 3 ml INHALATION Q4HWA.RT [facility] Last Admin: 02/26/20 07:22 Dose: 3 ml Documented by: Amitriptyline HCl (Amitriptyline 10 Mg Tablet) 20 mg PO QHS [facility] Last Admin: 02/25/20 20:47 Dose: 20 mg Documented by: Amlodipine Besylate (Amlodipine 5 Mg Tablet) 5 mg PO DAILY [facility] Aspirin (Aspirin 81 Mg Tab.Chew) 81 mg PO DAILY@0800 [facility] Last Admin: 02/25/20 15:33 Dose: 81 mg Documented by: Bupropion HCl (Bupropion (Sr) 150 Mg Tablet.Sa) 150 mg PO BID [facility] Last Admin: 02/25/20 20:47 Dose: 150 mg Documented by: Calcium Acetate (Calcium Acetate 667 Mg Capsule) 667 mg PO TIDCM [facility] Last Admin: 02/25/20 18:30 Dose: 667 mg Documented by: Cholestyramine Resin (Cholestyramine/Sucrose 4 Gm/Packet) 4 gm PO BIDCM [facility] Last Admin: 02/25/20 18:32 Dose: Not Given Documented by: Clopidogrel Bisulfate (Clopidogrel Bisulfate 75 Mg Tablet) 75 mg PO DAILY [facility] Last Admin: 02/25/20 15:32 Dose: 75 mg Documented by: Dextrose (Dextrose 50%-Water 25 Gm/50 Ml Disp.Syrin) 0 gm IV X1 PRN; Protocol PRN Reason: HYPOGLYCEMIA Glucagon (Glucagon 1 Mg/Ml Syringe) 1 mg IM .X1 PRN PRN Reason: Hypoglycemia Sodium Chloride () 250 mls @ 15 mls/hr IV .[id number] PRN PRN Reason: Saline Flush Sodium Chloride () 250 mls @ 15 mls/hr IV .[id number] PRN PRN Reason: Additional IVPB Infusion Sodium Chloride 19.25 meq/ (Dextrose) 254.8125 mls @ 20 mls/hr IV .[id number] [facility] Stop: 02/26/20 14:00 Last Admin: 02/26/20 08:43 Dose: Not Given Documented by: Ampicillin Sodium/Sulbactam (Sodium 3 gm/ Sodium Chloride) 112 mls @ 150 mls/hr IV Q24H [facility] Last Infusion: 02/25/20 20:16 Dose: Infused Documented by: Insulin Glargine (Insulin Glargine 100 Units/Ml Pen) 8 units SC BREAKFAST [facility] Insulin Human Lispro (Insulin Lispro 100 Unit/Ml Insuln.Pen) 0 unit SC Q4 [facility]; Protocol Last Admin: 02/26/20 08:45 Dose: Not Given Documented by: Labetalol HCl (Labetalol (Prefilled) 20 Mg/4 Ml) 40 mg IV Q4H PRN PRN PRN Reason: SBP > 160 Levothyroxine Sodium (Levothyroxine 50 Mcg Tablet) 50 mcg PO DAILY@0600 [facility] Last Admin: 02/25/20 15:33 Dose: 50 mcg Documented by: Melatonin (Melatonin 3 Mg Tablet) 3 mg PO QHS PRN PRN Reason: SLEEP Methylprednisolone (Methylprednisolone 40 Mg/Ml Vial) 40 mg IV Q12 [facility] Last Admin: 02/25/20 20:43 Dose: 40 mg Documented by: Metoprolol Tartrate (Metoprolol Tartrate 25 Mg Tablet) 75 mg PO BID [facility] Montelukast Sodium (Montelukast 10 Mg Tablet) 10 mg PO QHS [facility] Last Admin: 02/25/20 20:47 Dose: 10 mg Documented by: Multivit/Ca Carb/B Cmplx/FA/Prenat (Folic Acid/Vitamin B Comp W-C 1 Capsule) 1 capsule PO DAILY [facility] Last Admin: 02/25/20 15:32 Dose: 1 capsule Documented by: Nitroglycerin (Nitroglycerin (Inpatient Use) 0.4 Mg Tab.Subl) 0.4 mg SUBLINGUAL Q5M PRN PRN Reason: CARDIAC/CHEST PAIN Nystatin (Nystatin 500,000 Unit/5 Ml Udc) 500,000 unit PO 4X/DAY [facility] Stop: 03/02/20 10:01 Ondansetron HCl (Ondansetron 4 Mg/2 Ml Vial) 4 mg IV Q8H PRN PRN PRN Reason: NAUSEA/VOMITING Pantoprazole Sodium (Pantoprazole Sodium 40 Mg Tablet) 40 mg PO DAILY [facility] Last Admin: 02/25/20 15:32 Dose: 40 mg Documented by: Pyridostigmine [place] (Pyridostigmine [place] 60 Mg Tablet) 60 mg PO DAILY [facility] Last Admin: 02/25/20 15:33 Dose: 60 mg Documented by: Sodium Chloride (0.9% Saline Lock 10 Ml Syringe) 10 - 40 ml IV UD PRN PRN Reason: SALINE FLUSH Last Admin: 02/25/20 08:17 Dose: 10 ml Documented by: Medical Necessity - Tobacco Use Smoking Status: Current every day smoker Tobacco Use: Cigarettes Assessment/Plan All Active Problems (Last Reviewed 08/01/19 @ 12:44 by Dee Mukherjee) Diabetic nephropathy, type I (Acute) Foot ulcer, left (Acute) Left leg and foot cellulitis (Acute) Pneumonia (Acute) Hypoxia (Acute) Hypoglycemia (Acute) 1. ESRD HD MWF. Seen on dialysis. Attempt 2L fluid removal today. Remains on airvo. UF yesterday 2L for pulmonary edema. 2. Bilateral pleural effusion with alveolar infiltrates. IUF yesterday. 3. DKA resolved 4. DM type 1 with left BKA 5. HTN adjust BP medications as needed.
--- NOTE | 2020-02-26 11:18 | PCM.PN.INT ---
Subjective: The patient was seen and examined at the bedside this morning. Events from the last 24 hours have been reviewed. The patient is currently afebrile, hemodynamically stable and maintaining appropriate oxygen saturations on Airvo heated high flow with an FiO2 requirement of 60%. Potassium is low this morning at 3.3. The patient did tolerate 2 L of fluid removal yesterday via ultrafiltration. Objective: The patient's most recent lab work, culture data and imaging studies have all been personally reviewed. General: Alert, Cooperative, No apparent distress, - - Currently on dialysis HEENT: Atraumatic, PERRLA, Normocephalic Oral: No Gingival or Mucosal Lesions/ Ulcerations Neck: Supple, No Nodes, Trachea Midline Lungs: Diminished, Rales Cardiovascular: Regular rate, Regular Rhythm, No murmurs Abdomen: Bowel Sounds Present, Soft, Non Tender Extremities: No clubbing, No cyanosis, No edema Skin: No breakdown Musculoskeletal: No Tenderness to Palpation of Joints or Extremities Lymphatic: No Cervical, Supraclavicular, or Inguinal Adenopathy Neurological: Cranial nerves II-XII grossly intact, Neuro grossly intact Psych/Mental Status: Normal Affect Vital Signs Temp Pulse Resp BP Pulse Ox 97.9 F 93 15 161/110 H 94 02/26/20 00:00 02/26/20 07:22 02/26/20 07:22 02/26/20 07:00 02/26/20 07:22 Oxygen Flow Rate (L/min) 60 Oxygen Delivery Method Airvo Weight: 99 lb 10.383 oz Body Mass Index (BMI) 17.2 Finger Stick Blood Glucose 140 Intake and Output for Last 24 Hours 02/24/20 02/25/20 02/26/20 23:59 23:59 23:59 Intake Total 1398.0125 / 1398.0125 583.4725 / 583.4725 Output Total 2915 / 2920 2004 0 / 0 Balance -1516.9875 / -1521.9875 -1421.5275 / -1421.5275 0 / 0 Labs (Last 48 Hours) 02/24/20 02/24/20 02/24/20 04:30 11:58 13:11 WBC RBC Hgb Hct MCV MCH MCHC RDW Std Deviation RDW Coeff of Fidel Plt Count Immature Gran % (Auto) Neut % (Auto) Lymph % (Auto) [place] % (Auto) Eos % (Auto) Baso % (Auto) Absolute Neuts (auto) Absolute Lymphs (auto) Nucleated RBC % Sodium Potassium Chloride Carbon Dioxide Anion Gap BUN Creatinine Estim Creat Clear Calc Est GFR (MDRD) Af Amer Est GFR (MDRD) Non-Af BUN/Creatinine Ratio Glucose Calcium Phosphorus Total Bilirubin AST ALT Alkaline Phosphatase Total Protein Albumin Globulin Albumin/Globulin Ratio Random Vancomycin Heparin-induced Plt Ab Hepatitis A IgM Ab Negative Hep Bs Antigen Negative Hep B Core IgM Ab Negative Hepatitis C Ab (EIA) <0.1 POC Glucose 176 H 145 H 02/24/20 02/24/20 02/24/20 14:00 14:10 15:06 WBC RBC Hgb Hct MCV MCH MCHC RDW Std Deviation RDW Coeff of Fidel Plt Count Immature Gran % (Auto) Neut % (Auto) Lymph % (Auto) [place] % (Auto) Eos % (Auto) Baso % (Auto) Absolute Neuts (auto) Absolute Lymphs (auto) Nucleated RBC % Sodium 137 Potassium 3.1 L Chloride 100 Carbon Dioxide 29.0 Anion Gap 8 BUN 13 Creatinine 1.72 H Estim Creat Clear Calc 37.28 Est GFR (MDRD) Af Amer 56 L Est GFR (MDRD) Non-Af 46 L BUN/Creatinine Ratio 7.6 L Glucose 149 H Calcium 6.8 L Phosphorus Total Bilirubin AST ALT Alkaline Phosphatase Total Protein Albumin Globulin Albumin/Globulin Ratio Random Vancomycin Heparin-induced Plt Ab Hepatitis A IgM Ab Hep Bs Antigen Hep B Core IgM Ab Hepatitis C Ab (EIA) POC Glucose 160 H 141 H 02/24/20 02/24/20 02/24/20 16:08 17:12 17:20 WBC RBC Hgb Hct MCV MCH MCHC RDW Std Deviation RDW Coeff of Fidel Plt Count Immature Gran % (Auto) Neut % (Auto) Lymph % (Auto) [place] % (Auto) Eos % (Auto) Baso % (Auto) Absolute Neuts (auto) Absolute Lymphs (auto) Nucleated RBC % Sodium 139 Potassium 3.4 L Chloride 101 Carbon Dioxide 32.0 Anion Gap 6 BUN 15 Creatinine 2.09 H Estim Creat Clear Calc 30.68 Est GFR (MDRD) Af Amer 44 L Est GFR (MDRD) Non-Af 37 L BUN/Creatinine Ratio 7.2 L Glucose 137 H Calcium 6.9 L Phosphorus Total Bilirubin AST ALT Alkaline Phosphatase Total Protein Albumin Globulin Albumin/Globulin Ratio Random Vancomycin Heparin-induced Plt Ab Hepatitis A IgM Ab Hep Bs Antigen Hep B Core IgM Ab Hepatitis C Ab (EIA) POC Glucose 147 H 141 H 02/24/20 02/24/20 02/24/20 18:15 19:08 20:23 WBC RBC Hgb Hct MCV MCH MCHC RDW Std Deviation RDW Coeff of Fidel Plt Count Immature Gran % (Auto) Neut % (Auto) Lymph % (Auto) [place] % (Auto) Eos % (Auto) Baso % (Auto) Absolute Neuts (auto) Absolute Lymphs (auto) Nucleated RBC % Sodium Potassium Chloride Carbon Dioxide Anion Gap BUN Creatinine Estim Creat Clear Calc Est GFR (MDRD) Af Amer Est GFR (MDRD) Non-Af BUN/Creatinine Ratio Glucose Calcium Phosphorus Total Bilirubin AST ALT Alkaline Phosphatase Total Protein Albumin Globulin Albumin/Globulin Ratio Random Vancomycin Heparin-induced Plt Ab Hepatitis A IgM Ab Hep Bs Antigen Hep B Core IgM Ab Hepatitis C Ab (EIA) POC Glucose 133 H 140 H 124 H 02/24/20 02/25/20 02/25/20 22:48 00:27 04:30 WBC 13.0 H RBC 4.49 L Hgb 12.3 L Hct 36.9 L MCV 82.2 D MCH 27.4 MCHC 33.3 D RDW Std Deviation 51.3 H RDW Coeff of Fidel 17.5 H Plt Count 98 L Immature Gran % (Auto) 1.200 H Neut % (Auto) 92.5 H Lymph % (Auto) 3.3 L [place] % (Auto) 2.8 Eos % (Auto) 0.0 Baso % (Auto) 0.2 Absolute Neuts (auto) 12.0 H Absolute Lymphs (auto) 0.43 L Nucleated RBC % 0 Sodium Potassium Chloride Carbon Dioxide Anion Gap BUN Creatinine Estim Creat Clear Calc Est GFR (MDRD) Af Amer Est GFR (MDRD) Non-Af BUN/Creatinine Ratio Glucose Calcium Phosphorus Total Bilirubin AST ALT Alkaline Phosphatase Total Protein Albumin Globulin Albumin/Globulin Ratio Random Vancomycin Heparin-induced Plt Ab Hepatitis A IgM Ab Hep Bs Antigen Hep B Core IgM Ab Hepatitis C Ab (EIA) POC Glucose 154 H 147 H 02/25/20 02/25/20 02/25/20 04:30 10:27 13:59 WBC RBC Hgb Hct MCV MCH MCHC RDW Std Deviation RDW Coeff of Fidel Plt Count Immature Gran % (Auto) Neut % (Auto) Lymph % (Auto) [place] % (Auto) Eos % (Auto) Baso % (Auto) Absolute Neuts (auto) Absolute Lymphs (auto) Nucleated RBC % Sodium 136 Potassium 3.5 Chloride 98 Carbon Dioxide 28.0 Anion Gap 10 BUN 18 Creatinine 2.36 H Estim Creat Clear Calc 25.27 Est GFR (MDRD) Af Amer 39 L Est GFR (MDRD) Non-Af 32 L BUN/Creatinine Ratio 7.6 L Glucose 166 H Calcium 7.1 L Phosphorus 3.2 Total Bilirubin 0.40 AST 39 H ALT 49 Alkaline Phosphatase 424 H Total Protein 6.3 L Albumin 2.0 L Globulin 4.3 H Albumin/Globulin Ratio 0.5 L Random Vancomycin Heparin-induced Plt Ab Hepatitis A IgM Ab Hep Bs Antigen Hep B Core IgM Ab Hepatitis C Ab (EIA) POC Glucose 128 H 126 H 02/25/20 02/25/20 02/26/20 18:16 20:35 01:30 WBC RBC Hgb Hct MCV MCH MCHC RDW Std Deviation RDW Coeff of Fidel Plt Count Immature Gran % (Auto) Neut % (Auto) Lymph % (Auto) [place] % (Auto) Eos % (Auto) Baso % (Auto) Absolute Neuts (auto) Absolute Lymphs (auto) Nucleated RBC % Sodium Potassium Chloride Carbon Dioxide Anion Gap BUN Creatinine Estim Creat Clear Calc Est GFR (MDRD) Af Amer Est GFR (MDRD) Non-Af BUN/Creatinine Ratio Glucose Calcium Phosphorus Total Bilirubin AST ALT Alkaline Phosphatase Total Protein Albumin Globulin Albumin/Globulin Ratio Random Vancomycin Heparin-induced Plt Ab Hepatitis A IgM Ab Hep Bs Antigen Hep B Core IgM Ab Hepatitis C Ab (EIA) POC Glucose 244 H 185 H 176 H 02/26/20 02/26/20 02/26/20 05:30 05:30 07:40 WBC 8.3 RBC 4.41 L Hgb 11.8 L Hct 36.4 L MCV 82.5 MCH 26.8 L MCHC 32.4 RDW Std Deviation 52.4 H RDW Coeff of Fidel 17.7 H Plt Count 67 L Immature Gran % (Auto) 0.800 Neut % (Auto) 91.7 H Lymph % (Auto) 4.0 L [place] % (Auto) 3.4 Eos % (Auto) 0.1 Baso % (Auto) 0.0 Absolute Neuts (auto) 7.7 Absolute Lymphs (auto) 0.33 L Nucleated RBC % 0 Sodium 139 Potassium 3.3 L Chloride 103 Carbon Dioxide 29.0 Anion Gap 7 BUN 23 H Creatinine 2.87 H Estim Creat Clear Calc 20.78 Est GFR (MDRD) Af Amer 31 L Est GFR (MDRD) Non-Af 25 L BUN/Creatinine Ratio 8.0 L Glucose 148 H Calcium 7.3 L Phosphorus 2.6 Total Bilirubin 0.40 AST 34 ALT 42 Alkaline Phosphatase 362 H Total Protein 5.7 L Albumin 1.6 L Globulin 4.1 Albumin/Globulin Ratio 0.4 L Random Vancomycin Heparin-induced Plt Ab Pending Hepatitis A IgM Ab Hep Bs Antigen Hep B Core IgM Ab Hepatitis C Ab (EIA) POC Glucose 02/26/20 02/26/20 07:40 07:52 WBC RBC Hgb Hct MCV MCH MCHC RDW Std Deviation RDW Coeff of Fidel Plt Count Immature Gran % (Auto) Neut % (Auto) Lymph % (Auto) [place] % (Auto) Eos % (Auto) Baso % (Auto) Absolute Neuts (auto) Absolute Lymphs (auto) Nucleated RBC % Sodium Potassium Chloride Carbon Dioxide Anion Gap BUN Creatinine Estim Creat Clear Calc Est GFR (MDRD) Af Amer Est GFR (MDRD) Non-Af BUN/Creatinine Ratio Glucose Calcium Phosphorus Total Bilirubin AST ALT Alkaline Phosphatase Total Protein Albumin Globulin Albumin/Globulin Ratio Random Vancomycin 15.9 H Heparin-induced Plt Ab Hepatitis A IgM Ab Hep Bs Antigen Hep B Core IgM Ab Hepatitis C Ab (EIA) POC Glucose 97 Clinical Impression(s) from Imaging Studies Chest X-Ray 02/22/20 11:36 IMPRESSION: Marked progression of pulmonary opacities and increasing pleural effusions since the prior study. Findings are compatible with extensive pneumonia. Electronically Signed: Riley Diaz MD at 12:19 EST , Service support , Chest X-Ray 02/22/20 17:20 IMPRESSION: 1. Satisfactory position of endotracheal and enteric tubes. 2. Multilobar airspace disease and pleural effusions, the latter mildly decreased. Electronically Signed: Guilherme Mazariegos MD ([place]) at 17:56 EST , Service support , KUB X-Ray 02/22/20 17:20 IMPRESSION: 1. Satisfactory position of enteric tube. Relative lucency of the upper abdomen could be artifactual although pneumoperitoneum cannot be excluded. 2. Bilateral airspace disease and pleural effusions. Electronically Signed: Guilherme Mazariegos MD ([place]) at 17:53 EST , Service support , Chest X-Ray 02/24/20 15:32 IMPRESSION: 1. Removal of the endotracheal tube and nasogastric tube present on the earlier study. 2. Marked improvement in the upper lobe pulmonary infiltrates. 3. Persistent pleural effusions with atelectasis versus infiltrate at the right lung base Electronically Signed: Eduin Kaplan DO at 17:04 EST Tel [phone], Service support , Chest X-Ray 02/25/20 06:00 IMPRESSION: Little change compared to prior. Persistent bilateral alveolar opacities which could represent bilateral pneumonia or edema. Small pleural effusions. Electronically Signed: Shankar Valdez at 7:14 EST Tel , Service support , Medical Necessity - Tobacco Use Smoking Status: Current every day smoker Tobacco Use: Cigarettes Assessment/Plan All Active Problems (Last Reviewed 08/01/19 @ 12:44 by Dee Mukherjee) Diabetic nephropathy, type I (Acute) Foot ulcer, left (Acute) Left leg and foot cellulitis (Acute) Pneumonia (Acute) Hypoxia (Acute) Hypoglycemia (Acute) RECOMMENDATIONS: 1. Continue empiric antimicrobials. 2. Continue dialysis with additional volume removal per nephrology recommendations. 3. Continue to wean FiO2 to maintain oxygen saturations at or above 90%. 4. Encourage incentive spirometer use and mobilize patient as tolerated. IMPRESSIONS: 1. Acute combined respiratory failure Clinical concern for multifactorial etiology with flash pulmonary edema and/or bilateral pneumonia contributing. Pulmonary function testing was within normal limits in 2012. The patient remains on empiric antimicrobials, with plans for continued volume removal via dialysis per nephrology recommendations. Continue to wean FiO2 to maintain oxygen saturations at or above 90%. 2. Diabetes mellitus Continue Lantus and sliding scale insulin coverage. 3. End-stage renal disease on hemodialysis Continue attempts at additional volume removal per nephrology recommendations. 4. Cachexia/PAD/hypertension/acute metabolic encephalopathy/pleural effusions Complicates care, management, recovery and prognosis. Continue current supportive measures as noted above. This note was generated with [employer] dictation software. It may contain incorrect words, spelling, and punctuation that were not noted in checking the note before signing. Inpatient E&M: 55932 Subs Hosp L3
[2020-02-26] MEDS: Aspirin 81 MG TAB.CHEW PO (11:20)
[2020-02-26] MEDS: Levothyroxine 50 MCG Tablet PO (11:20)
[2020-02-26] MEDS: Pyridostigmine Bromide 60 MG Tablet PO (11:21)
[2020-02-26] MEDS: Cholestyramine/Sucrose 4 GM/PACKET PO ×2 (11:21→17:21)
[2020-02-26] MEDS: Metoprolol Tartrate 25 MG Tablet 75 MG PO ×2 (11:21→21:44)
[2020-02-26] MEDS: Folic Acid/Vitamin B Comp W-C 1 Capsule 1 CAP PO (11:21)
[2020-02-26] MEDS: Calcium Acetate 667 MG Capsule PO ×2 (11:21→17:21)
[2020-02-26] MEDS: amLODIPine 5 MG Tablet PO (11:21)
[2020-02-26] MEDS: NYSTATIN 500,000 UNIT/5 ML UDC 500000 UNIT PO ×4 (11:22→21:45)
[2020-02-26] MEDS: Pantoprazole Sodium 40 MG Tablet PO (11:22)
[2020-02-26] MEDS: Clopidogrel Bisulfate 75 MG Tablet PO (11:22)
[2020-02-26] MEDS: buPROPion (SR) 150 MG Tablet.SA PO ×2 (11:22→21:44)
[2020-02-26 12:10] LABS: Bedside Glucose 150 mg/dL (70-110)
[2020-02-26] MEDS: Albumin Human 25% (100 mL) 25 GM/100 ML BAG IV (13:03)
--- NOTE | 2020-02-26 14:16 | DIALYSIS ---
HD x3.5 hours completed on a 4K bath, tolerated fair, UF 900mL, became hypotensive 2hrs into tx, restless and cramping, received order for Albumin, BP and O2 improved and then able to pull fluid, accessed via LFA AVF using 15G needles, worked well, pt moves access arm frequently, very forgetful, needles well secured and closely monitored, switched from HiFlo to NC during dialysis, needles pulled post tx and stasis achieved without issue
[2020-02-26 15:25] LABS: Bedside Glucose 142 mg/dL (70-110)
[2020-02-26] MEDS: Amitriptyline 10 MG Tablet 20 MG PO (21:44)
[2020-02-26] MEDS: Montelukast 10 MG Tablet PO (21:44)
[2020-02-26] MEDS: MELATONIN 3 MG TABLET PO (21:45)
[2020-02-26 22:31] LABS: Bedside Glucose 144 mg/dL (70-110)
[2020-02-27] VITALS (15 sets, daily range): BP systolic 115–152; BP diastolic 71–91; PULSE 68–89; RESP 16–20; TEMP 36.5–37.1; O2SAT 92–98
[2020-02-27 00:35] LABS: Bedside Glucose 210 mg/dL (70-110)
[2020-02-27 01:55] LABS: Bedside Glucose 113 mg/dL (70-110)
--- NOTE | 2020-02-27 05:55 | RAD_ITS ---
STUDY: X-RAY CHEST REASON FOR EXAM: Male, 44 years old patient with respiratory distress. TECHNIQUE: Single AP portable view of the chest. COMPARISON: 02/25/2020. FINDINGS: The patient is status post sternotomy. Cardiac monitoring leads are present. The lungs are underexpanded. There is heterogeneous airspace consolidation in both lungs. There are small bilateral pleural effusions. There is borderline cardiomegaly. Normal mediastinum and nathaniel. Normal visualized pulmonary arteries. Normal visualized aortic arch and descending thoracic aorta. Normal visualized thoracic spine. Normal visualized ribs, clavicles, and shoulders. There is no demonstrated abnormality of the visualized soft tissue structures of the upper abdomen. RAD/Chest 1 View (Portable) IMPRESSION: Unchanged appearance to bilateral airspace consolidation. Electronically Signed: Ashli Eagle MD at 5:33 EST , Service support ,
[2020-02-27 06:15] LABS: Bedside Glucose 92 mg/dL (70-110)
[2020-02-27] MEDS: Levothyroxine 50 MCG Tablet PO (06:16)
[2020-02-27] MEDS: Ipratropium/Albuterol Sulfate 3 ML AMPUL.NEB INHALATION ×3 (06:54→20:42)
[2020-02-27 07:43] LABS: Absolute Lymphocyte Count 0.53 X10^3/uL (0.83-4.51); Absolute Neutrophil Count 6.9 X10^3/uL (2.0-7.7); Basophil# 0.01 X10^3/uL; Basophil% 0.1 % (0-1); Eosinophil# 0.07 X10^3/uL; Eosinophils% 0.9 % (0-5); Hematocrit 32.8 % (40-54); Hemoglobin 10.3 g/dL (13.0-16.5); Lymphocyte # 0.53 X10^3/ul (4.0); Lymphocyte % 6.8 % (19-41); Mean Corp Hgb Conc 31.4 g/dL (32-36); Mean Corpuscular Hgb 26.6 pg (27.0-32.0); Mean Corpuscular Volume 84.8 fL (80-94); Monocyte# 0.27 X10^3/uL; Monocyte% 3.5 % (0-10); NRBC Flagged by Analyzer 0 % (0-5); Neutrophil # 6.86 X10^3/uL (2.7-7.7); Neutrophil % 87.8 % (47-70); POSITIVE COUNT YES; POSITIVE DIFFERENTIAL YES; Platelet Count 85 K/mm3 (150-450); RBC Distribution Width CV 17.8 % (11.6-14.6); RBC Distribution Width SD 54.1 fl (35.1-43.9); Red Blood Count 3.87 M/mm3 (4.6-6.2); White Blood Count 7.8 K/mm3 (4.4-11.0)
[2020-02-27 07:48] LABS: Differential Indicated SCAN CRITERIA MET
[2020-02-27 08:01] LABS: Anion Gap 6 (5-15); BUN 12 mg/dL (7-18); BUN/Creat Ratio 5.6 RATIO (10-20); Calcium,Total 8.2 mg/dL (8.5-10.1); Chloride 106 mmol/L (98-107); Creatinine, Serum 2.13 mg/dL (0.70-1.30); EST Glomerular Filtration Rate 36 mL/min (>60); Est Glom Filt Rate - Afr Amer 43 mL/min (>60); Estimated Creatinine Clearance 27.75 ml/min; Glucose 134 mg/dL (74-106); Magnesium 2.1 mg/dL (1.6-2.6); Phosphorus 1.5 mg/dL (2.5-4.9); Potassium 4.2 mmol/L (3.5-5.1); Sodium Level 139 mmol/L (136-145)
[2020-02-27] MEDS: Cholestyramine/Sucrose 4 GM/PACKET PO ×2 (08:09→16:43)
[2020-02-27] MEDS: Calcium Acetate 667 MG Capsule PO ×3 (08:09→16:43)
[2020-02-27] MEDS: Metoprolol Tartrate 25 MG Tablet 75 MG PO (08:09)
[2020-02-27] MEDS: amLODIPine 5 MG Tablet PO (08:11)
[2020-02-27] MEDS: NYSTATIN 500,000 UNIT/5 ML UDC 500000 UNIT PO ×4 (08:14→20:09)
[2020-02-27 08:17] LABS: Platelet Estimate MOD DEC (ADEQ); Platelet Morphology LARGE
[2020-02-27] MEDS: Aspirin 81 MG TAB.CHEW PO (08:17)
[2020-02-27] MEDS: Pantoprazole Sodium 40 MG Tablet PO (08:17)
[2020-02-27] MEDS: Clopidogrel Bisulfate 75 MG Tablet PO (08:17)
[2020-02-27] MEDS: Insulin Lispro 100 UNIT/ML INSULN.PEN SC (10:16)
[2020-02-27] MEDS: buPROPion (SR) 150 MG Tablet.SA PO ×2 (10:17→20:08)
[2020-02-27] MEDS: Folic Acid/Vitamin B Comp W-C 1 Capsule 1 CAP PO (10:17)
[2020-02-27] MEDS: Pyridostigmine Bromide 60 MG Tablet PO (10:17)
[2020-02-27 10:25] LABS: Bedside Glucose 240 mg/dL (70-110)
--- NOTE | 2020-02-27 12:32 | PCM.PN.PUL ---
Patient Problems: Active and Suspected Problems (Last Reviewed 08/01/19 @ 12:44 by Dee Mukherjee) Foot ulcer, left (Acute) Left leg and foot cellulitis (Acute) Pneumonia (Acute) Hypoxia (Acute) Hypoglycemia (Acute) Subjective: The patient was seen and examined at the bedside this morning. Events from the last 24 hours have been reviewed. The patient is currently afebrile, hemodynamically stable and maintaining appropriate oxygen saturations on 4 L/min via nasal cannula. The patient has remained clinically stable following transfer out of the intensive care unit yesterday. The patient did tolerate an additional 900 cc of fluid removal yesterday. Objective: The patient's most recent lab work, culture data and imaging studies have all been personally reviewed. - Physical Exam Vitals/I&O's: Vital Signs Temp Pulse Resp BP Pulse Ox 98.0 F 82 20 H 152/91 H 95 02/27/20 08:05 02/27/20 11:45 02/27/20 11:06 02/27/20 08:05 02/27/20 08:05 Oxygen Flow Rate (L/min) 4 Oxygen Delivery Method Nasal Cannula Weight: 98 lb 12.273 oz Body Mass Index (BMI) 17.2 Finger Stick Blood Glucose 140 Intake and Output for Last 24 Hours 02/25/20 02/26/20 02/27/20 23:59 23:59 23:59 Intake Total 583.4725 / 583.4725 412 / 412 440 / 440 Output Total 2004 900 / 900 Balance -1421.5275 / -1421.5275 -488 / -488 440 / 440 General: Alert, No apparent distress HEENT: Atraumatic, Normocephalic Oral: Moist Mucosa Neck: Supple, No Nodes, Trachea Midline Lungs: Diminished, Rales Cardiovascular: Regular rate, Regular Rhythm Abdomen: Bowel Sounds Present, Soft, Non Tender Extremities: No clubbing, No cyanosis, No edema Skin: No breakdown Musculoskeletal: No Tenderness to Palpation of Joints or Extremities Lymphatic: No Cervical, Supraclavicular, or Inguinal Adenopathy Neurological: Cranial nerves II-XII grossly intact, Neuro grossly intact Psych/Mental Status: Normal Affect Labs (Last 48 Hours) 02/25/20 02/25/20 02/25/20 13:59 18:16 20:35 WBC RBC Hgb Hct MCV MCH MCHC RDW Std Deviation RDW Coeff of Fidel Plt Count MPV Immature Gran % (Auto) Neut % (Auto) Lymph % (Auto) [place] % (Auto) Eos % (Auto) Baso % (Auto) Absolute Neuts (auto) Absolute Lymphs (auto) Nucleated RBC % Platelet Estimate Plt Morphology Comment Sodium Potassium Chloride Carbon Dioxide Anion Gap BUN Creatinine Estim Creat Clear Calc Est GFR (MDRD) Af Amer Est GFR (MDRD) Non-Af BUN/Creatinine Ratio Glucose Calcium Phosphorus Magnesium Total Bilirubin AST ALT Alkaline Phosphatase Total Protein Albumin Globulin Albumin/Globulin Ratio Random Vancomycin Heparin-induced Plt Ab POC Glucose 126 H 244 H 185 H 02/26/20 02/26/20 02/26/20 01:30 05:30 05:30 WBC 8.3 RBC 4.41 L Hgb 11.8 L Hct 36.4 L MCV 82.5 MCH 26.8 L MCHC 32.4 RDW Std Deviation 52.4 H RDW Coeff of Fidel 17.7 H Plt Count 67 L MPV Immature Gran % (Auto) 0.800 Neut % (Auto) 91.7 H Lymph % (Auto) 4.0 L [place] % (Auto) 3.4 Eos % (Auto) 0.1 Baso % (Auto) 0.0 Absolute Neuts (auto) 7.7 Absolute Lymphs (auto) 0.33 L Nucleated RBC % 0 Platelet Estimate Plt Morphology Comment Sodium 139 Potassium 3.3 L Chloride 103 Carbon Dioxide 29.0 Anion Gap 7 BUN 23 H Creatinine 2.87 H Estim Creat Clear Calc 20.78 Est GFR (MDRD) Af Amer 31 L Est GFR (MDRD) Non-Af 25 L BUN/Creatinine Ratio 8.0 L Glucose 148 H Calcium 7.3 L Phosphorus 2.6 Magnesium Total Bilirubin 0.40 AST 34 ALT 42 Alkaline Phosphatase 362 H Total Protein 5.7 L Albumin 1.6 L Globulin 4.1 Albumin/Globulin Ratio 0.4 L Random Vancomycin Heparin-induced Plt Ab POC Glucose 176 H 02/26/20 02/26/20 02/26/20 07:40 07:40 07:52 WBC RBC Hgb Hct MCV MCH MCHC RDW Std Deviation RDW Coeff of Fidel Plt Count MPV Immature Gran % (Auto) Neut % (Auto) Lymph % (Auto) [place] % (Auto) Eos % (Auto) Baso % (Auto) Absolute Neuts (auto) Absolute Lymphs (auto) Nucleated RBC % Platelet Estimate Plt Morphology Comment Sodium Potassium Chloride Carbon Dioxide Anion Gap BUN Creatinine Estim Creat Clear Calc Est GFR (MDRD) Af Amer Est GFR (MDRD) Non-Af BUN/Creatinine Ratio Glucose Calcium Phosphorus Magnesium Total Bilirubin AST ALT Alkaline Phosphatase Total Protein Albumin Globulin Albumin/Globulin Ratio Random Vancomycin 15.9 H Heparin-induced Plt Ab Pending POC Glucose 97 02/26/20 02/26/20 02/26/20 12:06 15:00 17:31 WBC RBC Hgb Hct MCV MCH MCHC RDW Std Deviation RDW Coeff of Fidel Plt Count MPV Immature Gran % (Auto) Neut % (Auto) Lymph % (Auto) [place] % (Auto) Eos % (Auto) Baso % (Auto) Absolute Neuts (auto) Absolute Lymphs (auto) Nucleated RBC % Platelet Estimate Plt Morphology Comment Sodium Potassium Chloride Carbon Dioxide Anion Gap BUN Creatinine Estim Creat Clear Calc Est GFR (MDRD) Af Amer Est GFR (MDRD) Non-Af BUN/Creatinine Ratio Glucose Calcium Phosphorus Magnesium Total Bilirubin AST ALT Alkaline Phosphatase Total Protein Albumin Globulin Albumin/Globulin Ratio Random Vancomycin Heparin-induced Plt Ab POC Glucose 150 H 142 H 210 H 02/26/20 02/27/20 02/27/20 21:37 01:50 06:11 WBC RBC Hgb Hct MCV MCH MCHC RDW Std Deviation RDW Coeff of Fidel Plt Count MPV Immature Gran % (Auto) Neut % (Auto) Lymph % (Auto) [place] % (Auto) Eos % (Auto) Baso % (Auto) Absolute Neuts (auto) Absolute Lymphs (auto) Nucleated RBC % Platelet Estimate Plt Morphology Comment Sodium Potassium Chloride Carbon Dioxide Anion Gap BUN Creatinine Estim Creat Clear Calc Est GFR (MDRD) Af Amer Est GFR (MDRD) Non-Af BUN/Creatinine Ratio Glucose Calcium Phosphorus Magnesium Total Bilirubin AST ALT Alkaline Phosphatase Total Protein Albumin Globulin Albumin/Globulin Ratio Random Vancomycin Heparin-induced Plt Ab POC Glucose 144 H 113 H 92 02/27/20 02/27/20 02/27/20 07:05 07:05 10:15 WBC 7.8 RBC 3.87 L Hgb 10.3 L Hct 32.8 L MCV 84.8 MCH 26.6 L MCHC 31.4 L RDW Std Deviation 54.1 H RDW Coeff of Fidel 17.8 H Plt Count 85 L MPV TNP Immature Gran % (Auto) 0.900 Neut % (Auto) 87.8 H Lymph % (Auto) 6.8 L [place] % (Auto) 3.5 Eos % (Auto) 0.9 Baso % (Auto) 0.1 Absolute Neuts (auto) 6.9 Absolute Lymphs (auto) 0.53 L Nucleated RBC % 0 Platelet Estimate MOD DEC Plt Morphology Comment LARGE Sodium 139 Potassium 4.2 Chloride 106 Carbon Dioxide 27.0 Anion Gap 6 BUN 12 Creatinine 2.13 H Estim Creat Clear Calc 27.75 Est GFR (MDRD) Af Amer 43 L Est GFR (MDRD) Non-Af 36 L BUN/Creatinine Ratio 5.6 L Glucose 134 H Calcium 8.2 L Phosphorus 1.5 L Magnesium 2.1 Total Bilirubin AST ALT Alkaline Phosphatase Total Protein Albumin Globulin Albumin/Globulin Ratio Random Vancomycin Heparin-induced Plt Ab POC Glucose 240 H Microbiology 02/27/20 08:05 Stool C. difficile DNA Amplification - Final Clinical Impression(s) from Imaging Studies Chest X-Ray 02/22/20 11:36 IMPRESSION: Marked progression of pulmonary opacities and increasing pleural effusions since the prior study. Findings are compatible with extensive pneumonia. Electronically Signed: Riley Diaz MD at 12:19 EST , Service support , Chest X-Ray 02/22/20 17:20 IMPRESSION: 1. Satisfactory position of endotracheal and enteric tubes. 2. Multilobar airspace disease and pleural effusions, the latter mildly decreased. Electronically Signed: Guilherme Mazariegos MD ([place]) at 17:56 EST , Service support , KUB X-Ray 02/22/20 17:20 IMPRESSION: 1. Satisfactory position of enteric tube. Relative lucency of the upper abdomen could be artifactual although pneumoperitoneum cannot be excluded. 2. Bilateral airspace disease and pleural effusions. Electronically Signed: Guilherme Mazariegos MD ([place]) at 17:53 EST , Service support , Chest X-Ray 02/24/20 15:32 IMPRESSION: 1. Removal of the endotracheal tube and nasogastric tube present on the earlier study. 2. Marked improvement in the upper lobe pulmonary infiltrates. 3. Persistent pleural effusions with atelectasis versus infiltrate at the right lung base Electronically Signed: Eduin Kpalan DO at 17:04 EST Tel [phone], Service support , Chest X-Ray 02/25/20 06:00 IMPRESSION: Little change compared to prior. Persistent bilateral alveolar opacities which could represent bilateral pneumonia or edema. Small pleural effusions. Electronically Signed: Shankar Valdez, at 7:14 EST Tel , Service support , Chest X-Ray 02/27/20 05:55 IMPRESSION: Unchanged appearance to bilateral airspace consolidation. Electronically Signed: Ashli Eagle MD at 5:33 EST , Service support , Current Medications Acetaminophen (Acetaminophen 650 Mg/20 Ml Udc) 650 mg GT Q6H PRN PRN PRN Reason: Pain Score 1-10/Temp > 100.7 F Last Admin: 02/23/20 18:11 Dose: 650 mg Documented by: Albuterol Sulfate (Albuterol 2.5 Mg/3 Ml Vial.Neb.) 2.5 mg INHALATION Q2H PRN PRN PRN Reason: Shortness of Breath/Wheezing Last Admin: 02/26/20 02:15 Dose: 2.5 mg Documented by: Albuterol/Ipratropium (Ipratropium/Albuterol Sulfate 3 Ml Ampul.Neb) 3 ml INHALATION Q4HWA.RT [place] Last Admin: 02/27/20 11:06 Dose: 3 ml Documented by: Amitriptyline HCl (Amitriptyline 10 Mg Tablet) 20 mg PO QHS [place] Last Admin: 02/26/20 21:44 Dose: 20 mg Documented by: Amlodipine Besylate (Amlodipine 5 Mg Tablet) 5 mg PO DAILY [facility] Last Admin: 02/27/20 08:11 Dose: 5 mg Documented by: Aspirin (Aspirin 81 Mg Tab.Chew) 81 mg PO DAILY@0800 [facility] Last Admin: 02/27/20 08:17 Dose: 81 mg Documented by: Bupropion HCl (Bupropion (Sr) 150 Mg Tablet.Sa) 150 mg PO BID [facility] Last Admin: 02/27/20 10:17 Dose: 150 mg Documented by: Calcium Acetate (Calcium Acetate 667 Mg Capsule) 667 mg PO TIDCM [facility] Last Admin: 02/27/20 10:17 Dose: 667 mg Documented by: Cholestyramine Resin (Cholestyramine/Sucrose 4 Gm/Packet) 4 gm PO BIDCM [facility] Last Admin: 02/27/20 08:09 Dose: 4 gm Documented by: Clopidogrel Bisulfate (Clopidogrel Bisulfate 75 Mg Tablet) 75 mg PO DAILY [facility] Last Admin: 02/27/20 08:17 Dose: 75 mg Documented by: Glucagon (Glucagon 1 Mg/Ml Syringe) 1 mg IM .X1 PRN PRN Reason: Hypoglycemia Sodium Chloride () 250 mls @ 15 mls/hr IV .[id number] PRN PRN Reason: Saline Flush Sodium Chloride () 250 mls @ 15 mls/hr IV .[id number] PRN PRN Reason: Additional IVPB Infusion Ampicillin Sodium/Sulbactam (Sodium 3 gm/ Sodium Chloride) 112 mls @ 150 mls/hr IV Q24H [facility] Last Infusion: 02/26/20 18:06 Dose: Infused Documented by: Insulin Glargine (Insulin Glargine 100 Units/Ml Pen) 8 units SC BREAKFAST [facility] Last Admin: 02/27/20 08:09 Dose: 8 u Documented by: Insulin Human Lispro (Insulin Lispro 100 Unit/Ml Insuln.Pen) 0 unit SC Q4 [facility]; Protocol Last Admin: 02/27/20 10:16 Dose: 4 u Documented by: Labetalol HCl (Labetalol (Prefilled) 20 Mg/4 Ml) 40 mg IV Q4H PRN PRN PRN Reason: SBP > 160 Levothyroxine Sodium (Levothyroxine 50 Mcg Tablet) 50 mcg PO DAILY@0600 [facility] Last Admin: 02/27/20 06:16 Dose: 50 mcg Documented by: Melatonin (Melatonin 3 Mg Tablet) 3 mg PO QHS PRN PRN Reason: SLEEP Last Admin: 02/26/20 21:45 Dose: 3 mg Documented by: Methylprednisolone (Methylprednisolone 40 Mg/Ml Vial) 40 mg IV Q12 [facility] Last Admin: 02/27/20 08:12 Dose: 40 mg Documented by: Metoprolol Tartrate (Metoprolol Tartrate 25 Mg Tablet) 75 mg PO BID [facility] Last Admin: 02/27/20 08:09 Dose: 75 mg Documented by: Montelukast Sodium (Montelukast 10 Mg Tablet) 10 mg PO QHS [facility] Last Admin: 02/26/20 21:44 Dose: 10 mg Documented by: Multivit/Ca Carb/B Cmplx/FA/Prenat (Folic Acid/Vitamin B Comp W-C 1 Capsule) 1 capsule PO DAILY [facility] Last Admin: 02/27/20 10:17 Dose: 1 capsule Documented by: Nitroglycerin (Nitroglycerin (Inpatient Use) 0.4 Mg Tab.Subl) 0.4 mg SUBLINGUAL Q5M PRN PRN Reason: CARDIAC/CHEST PAIN Nystatin (Nystatin 500,000 Unit/5 Ml Udc) 500,000 unit PO 4X/DAY [facility] Stop: 03/02/20 10:01 Last Admin: 02/27/20 08:14 Dose: 500,000 unit Documented by: Ondansetron HCl (Ondansetron 4 Mg/2 Ml Vial) 4 mg IV Q8H PRN PRN PRN Reason: NAUSEA/VOMITING Pantoprazole Sodium (Pantoprazole Sodium 40 Mg Tablet) 40 mg PO DAILY [facility] Last Admin: 02/27/20 08:17 Dose: 40 mg Documented by: Pyridostigmine [place] (Pyridostigmine [place] 60 Mg Tablet) 60 mg PO DAILY [facility] Last Admin: 02/27/20 10:17 Dose: 60 mg Documented by: Sodium Chloride (0.9% Saline Lock 10 Ml Syringe) 10 - 40 ml IV UD PRN PRN Reason: SALINE FLUSH Last Admin: 02/25/20 08:17 Dose: 10 ml Documented by: Medical Necessity - Tobacco Use Smoking Status: Current every day smoker Tobacco Use: Cigarettes Assessment/Plan All Active Problems (Last Reviewed 08/01/19 @ 12:44 by Dee Mukherjee) Diabetic nephropathy, type I (Acute) Foot ulcer, left (Acute) Left leg and foot cellulitis (Acute) Pneumonia (Acute) Hypoxia (Acute) Hypoglycemia (Acute) RECOMMENDATIONS: 1. Continue empiric antimicrobials to complete a 7-day treatment course. 2. Continue dialysis with additional volume removal per nephrology recommendations. 3. Wean supplemental oxygen to maintain saturations at or above 90%. 4. Encourage incentive spirometer use and mobilize patient as tolerated. 5. Will sign off from a critical care perspective. Please call with any additional questions. IMPRESSIONS: 1. Acute combined respiratory failure Clinical concern for multifactorial etiology with flash pulmonary edema and/or bilateral pneumonia contributing. Pulmonary function testing was within normal limits in 2012. The patient remains on empiric antimicrobials, with plans for continued volume removal via dialysis per nephrology recommendations. Continue to wean FiO2 to maintain oxygen saturations at or above 90%. 2. Diabetes mellitus Continue Lantus and sliding scale insulin coverage. 3. End-stage renal disease on hemodialysis Continue attempts at additional volume removal per nephrology recommendations. 4. Cachexia/PAD/hypertension/acute metabolic encephalopathy/pleural effusions Complicates care, management, recovery and prognosis. Continue current supportive measures as noted above. This note was generated with [employer] dictation software. It may contain incorrect words, spelling, and punctuation that were not noted in checking the note before signing. Inpatient E&M: 84373 Subs Hosp L2
--- NOTE | 2020-02-27 13:01 | PN_ITS ---
Patient Problems: Active and Suspected Problems (Last Reviewed 08/01/19 @ 12:44 by Dee Mukherjee) Foot ulcer, left (Acute) Left leg and foot cellulitis (Acute) Pneumonia (Acute) Hypoxia (Acute) Hypoglycemia (Acute) Subjective: Pt states that breathing is overall better but still not baseline. Tired today. No overnight issues. Vitals/I&O's: Vital Signs Temp Pulse Resp BP Pulse Ox 98.0 F 82 20 H 152/91 H 95 02/27/20 08:05 02/27/20 11:45 02/27/20 11:06 02/27/20 08:05 02/27/20 08:05 Oxygen Flow Rate (L/min) 4 Oxygen Delivery Method Nasal Cannula Weight: 44.8 kg Body Mass Index (BMI) 17.2 Finger Stick Blood Glucose 140 Intake and Output for Last 24 Hours 02/25/20 02/26/20 02/27/20 23:59 23:59 23:59 Intake Total 583.4725 / 583.4725 412 / 412 440 / 440 Output Total 2004 900 / 900 Balance -1421.5275 / -1421.5275 -488 / -488 440 / 440 General: Alert, Oriented x3, Cooperative, No apparent distress, Well developed, Well nourished, - - thin, cachetic male, lying in bed, appears much older than stated age HEENT: Atraumatic, PERRLA, EOMI, Normocephalic, EAC Clear Oral: Moist Mucosa, No Gingival or Mucosal Lesions/ Ulcerations, - - poor dentition Neck: Supple, Trachea Midline, Thyroid Normal Size and Texture Lungs: No rhonchi, No wheeze, Diminished - diffusely, Rales - scattered Cardiovascular: Regular rate, Regular Rhythm, Normal S1, Normal S2, No murmurs, No Ectopic Activity, No rub noted, No Gallop Abdomen: Bowel Sounds Present, Soft, Non Tender, Non-Distended, No hernias noted Extremities: No clubbing, No cyanosis, No edema, Capillary Refill Less than 3 Seconds, Peripheral Pulses Normal Skin: No rashes, No breakdown Musculoskeletal: No Tenderness to Palpation of Joints or Extremities, Cachexia, Muscle Wasting Lymphatic: No Cervical, Supraclavicular, or Inguinal Adenopathy Neurological: Cranial nerves II-XII grossly intact, Neuro grossly intact, - - sig generalized weakness Psych/Mental Status: Normal Affect, Appropriate, - - pleasant Microbiology Past 72 Hours 02/27/20 08:05 Stool C. difficile DNA Amplification - Final Laboratory Results 02/26/20 15:00: POC Glucose 142 H 02/26/20 17:31: POC Glucose 210 H 02/26/20 21:37: POC Glucose 144 H 02/27/20 01:50: POC Glucose 113 H 02/27/20 06:11: POC Glucose 92 02/27/20 07:05: Sodium 139, Potassium 4.2, Chloride 106, Carbon Dioxide 27.0, Anion Gap 6, BUN 12, Creatinine 2.13 H, Estim Creat Clear Calc 27.75, Est GFR (MDRD) Af Amer 43 L, Est GFR (MDRD) Non-Af 36 L, BUN/Creatinine Ratio 5.6 L, Glucose 134 H, Calcium 8.2 L, Phosphorus 1.5 L, Magnesium 2.1 02/27/20 07:05: WBC 7.8, RBC 3.87 L, Hgb 10.3 L, Hct 32.8 L, MCV 84.8, MCH 26.6 L, MCHC 31.4 L, RDW Std Deviation 54.1 H, RDW Coeff of Fidel 17.8 H, Plt Count 85 L, MPV TNP, Immature Gran % (Auto) 0.900, Neut % (Auto) 87.8 H, Lymph % (Auto) 6.8 L, [place] % (Auto) 3.5, Eos % (Auto) 0.9, Baso % (Auto) 0.1, Absolute Neuts (auto) 6.9, Absolute Lymphs (auto) 0.53 L, Nucleated RBC % 0, Platelet Estimate MOD DEC, Plt Morphology Comment LARGE 02/27/20 10:15: POC Glucose 240 H Current Medications Acetaminophen (Acetaminophen 650 Mg/20 Ml Udc) 650 mg GT Q6H PRN PRN PRN Reason: Pain Score 1-10/Temp > 100.7 F Last Admin: 02/23/20 18:11 Dose: 650 mg Documented by: Albuterol Sulfate (Albuterol 2.5 Mg/3 Ml Vial.Neb.) 2.5 mg INHALATION Q2H PRN PRN PRN Reason: Shortness of Breath/Wheezing Last Admin: 02/26/20 02:15 Dose: 2.5 mg Documented by: Albuterol/Ipratropium (Ipratropium/Albuterol Sulfate 3 Ml Ampul.Neb) 3 ml INHALATION Q4HWA.RT ON LICENSE OF [facility] Last Admin: 02/27/20 11:06 Dose: 3 ml Documented by: Amitriptyline HCl (Amitriptyline 10 Mg Tablet) 20 mg PO QHS ON [facility] OF [facility] Last Admin: 02/26/20 21:44 Dose: 20 mg Documented by: Amlodipine Besylate (Amlodipine 5 Mg Tablet) 5 mg PO DAILY ON [facility] OF [facility] Last Admin: 02/27/20 08:11 Dose: 5 mg Documented by: Aspirin (Aspirin 81 Mg Tab.Chew) 81 mg PO DAILY@0800 ON [facility] OF [facility] Last Admin: 02/27/20 08:17 Dose: 81 mg Documented by: Bupropion HCl (Bupropion (Sr) 150 Mg Tablet.Sa) 150 mg PO BID ON [facility] OF [facility] Last Admin: 02/27/20 10:17 Dose: 150 mg Documented by: Calcium Acetate (Calcium Acetate 667 Mg Capsule) 667 mg PO TIDCM ON LICENSE OF [facility] Last Admin: 02/27/20 10:17 Dose: 667 mg Documented by: Cholestyramine Resin (Cholestyramine/Sucrose 4 Gm/Packet) 4 gm PO BIDCM ON LICENSE OF [facility] Last Admin: 02/27/20 08:09 Dose: 4 gm Documented by: Clopidogrel Bisulfate (Clopidogrel Bisulfate 75 Mg Tablet) 75 mg PO DAILY ON [facility] OF [facility] Last Admin: 02/27/20 08:17 Dose: 75 mg Documented by: Glucagon (Glucagon 1 Mg/Ml Syringe) 1 mg IM .X1 PRN PRN Reason: Hypoglycemia Sodium Chloride () 250 mls @ 15 mls/hr IV .[id number] PRN PRN Reason: Saline Flush Sodium Chloride () 250 mls @ 15 mls/hr IV .[id number] PRN PRN Reason: Additional IVPB Infusion Ampicillin Sodium/Sulbactam (Sodium 3 gm/ Sodium Chloride) 112 mls @ 150 mls/hr IV Q24H ON [facility] OF [facility] Last Infusion: 02/26/20 18:06 Dose: Infused Documented by: Insulin Glargine (Insulin Glargine 100 Units/Ml Pen) 8 units SC BREAKFAST ON [facility] OF [facility] Last Admin: 02/27/20 08:09 Dose: 8 u Documented by: Insulin Human Lispro (Insulin Lispro 100 Unit/Ml Insuln.Pen) 0 unit SC ACHS ON [facility] OF [facility]; Protocol Labetalol HCl (Labetalol (Prefilled) 20 Mg/4 Ml) 40 mg IV Q4H PRN PRN PRN Reason: SBP > 160 Levothyroxine Sodium (Levothyroxine 50 Mcg Tablet) 50 mcg PO DAILY@0600 ON [facility] OF [facility] Last Admin: 02/27/20 06:16 Dose: 50 mcg Documented by: Melatonin (Melatonin 3 Mg Tablet) 3 mg PO QHS PRN PRN Reason: SLEEP Last Admin: 02/26/20 21:45 Dose: 3 mg Documented by: Methylprednisolone (Methylprednisolone 40 Mg/Ml Vial) 40 mg IV Q12 ON [facility] OF [facility] Last Admin: 02/27/20 08:12 Dose: 40 mg Documented by: Metoprolol Tartrate (Metoprolol Tartrate 25 Mg Tablet) 75 mg PO BID ON [facility] OF [facility] Last Admin: 02/27/20 08:09 Dose: 75 mg Documented by: Montelukast Sodium (Montelukast 10 Mg Tablet) 10 mg PO QHS ON [facility] OF [facility] Last Admin: 02/26/20 21:44 Dose: 10 mg Documented by: Multivit/Ca Carb/B Cmplx/FA/Prenat (Folic Acid/Vitamin B Comp W-C 1 Capsule) 1 capsule PO DAILY ON [facility] OF [facility] Last Admin: 02/27/20 10:17 Dose: 1 capsule Documented by: Nitroglycerin (Nitroglycerin (Inpatient Use) 0.4 Mg Tab.Subl) 0.4 mg SUBLINGUAL Q5M PRN PRN Reason: CARDIAC/CHEST PAIN Nystatin (Nystatin 500,000 Unit/5 Ml Udc) 500,000 unit PO 4X/DAY ON [facility] OF [facility] Stop: 03/02/20 10:01 Last Admin: 02/27/20 08:14 Dose: 500,000 unit Documented by: Ondansetron HCl (Ondansetron 4 Mg/2 Ml Vial) 4 mg IV Q8H PRN PRN PRN Reason: NAUSEA/VOMITING Pantoprazole Sodium (Pantoprazole Sodium 40 Mg Tablet) 40 mg PO DAILY ON [facility] OF [facility] Last Admin: 02/27/20 08:17 Dose: 40 mg Documented by: Pyridostigmine [place] (Pyridostigmine [place] 60 Mg Tablet) 60 mg PO DAILY ON LICENSE OF [facility] Last Admin: 02/27/20 10:17 Dose: 60 mg Documented by: Sodium Chloride (0.9% Saline Lock 10 Ml Syringe) 10 - 40 ml IV UD PRN PRN Reason: SALINE FLUSH Last Admin: 02/25/20 08:17 Dose: 10 ml Documented by: STROKE Vital Signs/Narrative: Vital Signs Pulse Resp 02/27/20 11:45 82 02/27/20 11:06 89 20 H Medical Necessity - Tobacco Use Smoking Status: Current every day smoker Tobacco Use: Cigarettes Assessment/Plan All Active Problems (Last Reviewed 08/01/19 @ 12:44 by Dee Mukherjee) Diabetic nephropathy, type I (Acute) Foot ulcer, left (Acute) Left leg and foot cellulitis (Acute) Pneumonia (Acute) Hypoxia (Acute) Hypoglycemia (Acute) Acute Hypoxic Respiratory Failure-Multifactorial -flash pulm edema/Acute B PNA/AECOPD -now on 4L nasal cannula -wean as able -COVID was neg 02/21 -Urinary Legionella and streptococcal antigen negative -resp viral PCR neg -Unasyn only for abx day 6/7 -wean to prednisone 40 mg daily -CXR stable to sightly improved -pulm following DKA -resolved DM-1 with severe Hypoglycemia -2/2 Insulin pump failure, gastroparesis and ESRD -Lantus 8 u daily am -cont Puree/NTL diet -SSI only for now and add scheduled log as needed -monitor BGT and labs Hypokalemia -resolved Hypophosphatemia -30 mmol bolus and repeat in am Thrush -nystatin x5 day Dysphagia -SECURITY OPERATIONS SPECIALIST following -puree/NTL ESRD on HD -typically TRS HD -Nephro is following Thrombocytopenia -suspected to be related to sepsis -some better today -hold heparin products -HIT ab pending Anemia of Chronic Renal Disease -hgb is stable -monitor Myasthenia gravis -continue pyridostigmine Severe PAD -asa and plavix--> watch plts -s/p L BKA HTN -BP remains elevated -increase Metoprolol to 100 mg BID (home dose 200 BID) -increase Amlodipine to 10 mg daily (home dose 10 mg daily) -PRN Labetalol available -monitor Depression -restart meds on d/c Hypothyroidism -synthroid when able to take PO Severe Malnutrition -dietitian following -PO diet started DVT/GI Prophylaxis -drop in plts -no heparin -scd's -PPI Code status -Full DISPO -D/C SNF in next 24-48 hrs most likely Inpatient E&M: 22977 Subs Hosp L3
--- NOTE | 2020-02-27 15:10 | CASEMGMT ---
Social Work Note SNF is being recommended. SW in to speak with pt. SW introduced self and role at [facility]. Pt is alert and orientated x3. Pt confirms agreeable to SNF. SW provided pt with list of SNF that accept pt's insurance. Pt agreeable to [facility]. SW explained referral process. KENTRELL placed a call to Lauren at [facility] and provided referral. KENTRELL informed [facility] that pt is on dialysis, will need transportation to and from dialysis. Lauren states understanding. KENTRELL faxed referral to [facility]. Plan: [facility] pending acceptance and pre-cert Claudia Stroud CAFETERIA CASHIER, PAD EXTRACTION TENDER
[2020-02-27 16:55] LABS: Bedside Glucose 59 mg/dL (70-110)
[2020-02-27] MEDS: Acetaminophen 650 MG/20 ML UDC GT (20:04)
[2020-02-27] MEDS: 0.9% Saline Lock 10 ML Syringe IV (20:04)
[2020-02-27] MEDS: Amitriptyline 10 MG Tablet 20 MG PO (20:06)
[2020-02-27] MEDS: Montelukast 10 MG Tablet PO (20:08)
[2020-02-27] MEDS: Metoprolol Tartrate 100 MG Tablet PO (20:08)
[2020-02-27] MEDS: MELATONIN 3 MG TABLET PO (20:23)
[2020-02-28] VITALS (18 sets, daily range): BP systolic 115–163; BP diastolic 78–102; PULSE 68–112; RESP 14–21; TEMP 36.4–36.7; O2SAT 91–100
[2020-02-28 02:20] LABS: Bedside Glucose 101 mg/dL (70-110)
[2020-02-28] MEDS: Levothyroxine 50 MCG Tablet PO (05:47)
[2020-02-28] MEDS: 0.9% Saline Lock 10 ML Syringe IV ×2 (05:48→05:51)
[2020-02-28] MEDS: Ipratropium/Albuterol Sulfate 3 ML AMPUL.NEB INHALATION ×3 (07:01→19:33)
[2020-02-28 08:15] LABS: Bedside Glucose 137 mg/dL (70-110)
[2020-02-28 08:32] LABS: Absolute Lymphocyte Count 0.45 X10^3/uL (0.83-4.51); Absolute Neutrophil Count 6.5 X10^3/uL (2.0-7.7); Basophil# 0.01 X10^3/uL; Basophil% 0.1 % (0-1); Eosinophil# 0.27 X10^3/uL; Eosinophils% 3.6 % (0-5); Hematocrit 39.2 % (40-54); Hemoglobin 12.4 g/dL (13.0-16.5); Lymphocyte # 0.45 X10^3/ul (4.0); Mean Corp Hgb Conc 31.6 g/dL (32-36); Mean Corpuscular Hgb 26.8 pg (27.0-32.0); Mean Corpuscular Volume 84.8 fL (80-94); Monocyte# 0.18 X10^3/uL; Monocyte% 2.4 % (0-10); NRBC Flagged by Analyzer 0 % (0-5); Neutrophil # 6.49 X10^3/uL (2.7-7.7); Neutrophil % 87.1 % (47-70); POSITIVE COUNT YES; POSITIVE DIFFERENTIAL YES; Platelet Count 96 K/mm3 (150-450); RBC Distribution Width CV 18.1 % (11.6-14.6); RBC Distribution Width SD 54.6 fl (35.1-43.9); Red Blood Count 4.62 M/mm3 (4.6-6.2); White Blood Count 7.5 K/mm3 (4.4-11.0)
[2020-02-28 08:34] LABS: Differential Indicated SCAN CRITERIA MET
[2020-02-28 08:39] LABS: Anion Gap 9 (5-15); BUN 18 mg/dL (7-18); BUN/Creat Ratio 6.2 RATIO (10-20); Calcium,Total 8.5 mg/dL (8.5-10.1); Chloride 109 mmol/L (98-107); Creatinine, Serum 2.89 mg/dL (0.70-1.30); EST Glomerular Filtration Rate 25 mL/min (>60); Est Glom Filt Rate - Afr Amer 31 mL/min (>60); Estimated Creatinine Clearance 20.45 ml/min; Glucose 133 mg/dL (74-106); Sodium Level 143 mmol/L (136-145)
[2020-02-28] MEDS: Aspirin 81 MG TAB.CHEW PO (09:08)
[2020-02-28] MEDS: Calcium Acetate 667 MG Capsule PO (09:10)
[2020-02-28] MEDS: Pantoprazole Sodium 40 MG Tablet PO (09:11)
[2020-02-28] MEDS: Cholestyramine/Sucrose 4 GM/PACKET PO ×2 (09:12→17:31)
[2020-02-28] MEDS: predniSONE 20 MG Tablet 40 MG PO (09:12)
[2020-02-28] MEDS: Clopidogrel Bisulfate 75 MG Tablet PO (09:14)
[2020-02-28] MEDS: amLODIPine 10 MG Tablet PO (09:14)
[2020-02-28] MEDS: Metoprolol Tartrate 100 MG Tablet PO ×2 (09:15→23:01)
[2020-02-28] MEDS: buPROPion (SR) 150 MG Tablet.SA PO ×2 (09:15→23:01)
[2020-02-28] MEDS: Folic Acid/Vitamin B Comp W-C 1 Capsule 1 CAP PO (09:16)
[2020-02-28] MEDS: Pyridostigmine Bromide 60 MG Tablet PO (09:17)
[2020-02-28] MEDS: NYSTATIN 500,000 UNIT/5 ML UDC 500000 UNIT PO ×4 (09:17→23:00)
--- NOTE | 2020-02-28 09:36 | PCM.PN.BLA ---
Progress Note transferred to GM floor. Oxygenation stable on NC. Low phos, stop binders. ESRD HD MWF. Dialysis rescheduled for tomorrow due to staffing issues. STROKE Vital Signs/Narrative: Vital Signs Temp Pulse Resp BP BP Pulse Ox 02/28/20 09:15 72 02/28/20 08:44 98.1 F 72 14 138/95 H 138/95 H 96 02/28/20 08:00 98.1 F 72 14 138/95 H 96 02/28/20 07:01 78 21 H 91 02/28/20 05:54 147/99 H
--- NOTE | 2020-02-28 09:41 | CASEMGMT ---
Social Work Note SW received call from Lauren at [facility] stating she is able to accept pt. Lauren states pt's insurance doesn't require pre-cert so pt is able to admit whenever medically cleared. Lauren states she will call [facility] to inquire about pt's dialysis time. Plan: [facility] when medically cleared Claudia Stroud NATURALIST, TEST DRILLER
[2020-02-28 09:52] LABS: Platelet Estimate MOD DEC (ADEQ)
[2020-02-28 11:51] LABS: Bedside Glucose 220 mg/dL (70-110)
[2020-02-28] MEDS: Insulin Lispro 100 UNIT/ML INSULN.PEN SC ×3 (12:27→23:00)
--- NOTE | 2020-02-28 12:58 | NURSING ---
PT APPROVED TO TRANSFER TO [facility] TODAY. [facility] HAS NO TRANSPORT ON SAT & SUN. DR Jo ESCOTO NOTIFIED. PT CAN BE DC'D MONDAY AFTER DIALYSIS TO [facility].
--- NOTE | 2020-02-28 13:18 | CASEMGMT ---
Addendum entered by Claudia Stroud 02/28/20 13:54: SW spoke with pt. Pt confirms that he spoke to his mother and provided update on discharge plans. SW placed a call to pt's CM Stephania Garcia and updated her that plan is for pt to admit to [facility] tomorrow. Stephania states understanding. Original Note: Social Work Note SW in to speak with pt. SW updated pt that [facility] has been accepted and pt can discharge when medically ready. Pt states understanding, thanked this worker. Pt denied additional needs or concerns at this time. KENTRELL spoke with RN, asked if pt will get dialysis today (pt is normally M,W,F schedule). RN states pt will not get dialysis today, plan is for dialysis tomorrow. KENTRELL explained that [facility] has transportation arranged for M,W, F schedule, will not be able to transport pt tomorrow to dialysis. RN to update physician. SW updated that plan is for pt to remain at [facility] today and discharge to [facility] tomorrow after dialysis. KENTRELL placed a call to Lauren at [facility] and updated her that pt will be discharged tomorrow to [facility] after dialysis. Lauren confirms, [facility] would not be able to transport pt to dialysis tomorrow. KENTRELL completed convalescent 7000 in HENS. KENTRELL placed Green sheet, transport form, COVID screening tool and HENS on pt's chart. Plan: [facility] tomorrow after dialysis Claudia Stroud INSPECTOR RAG SORTING, CLINICAL DATA ASSISTANT
--- NOTE | 2020-02-28 13:25 | PCM.TXEXTCAR ---
- Diet 02/25/20 15:43 Diet: Carbohydrate Controlled Food consistency:: Pureed Liquid Consistency:: Sarben/Mildly Thick Dietary Modifications:: No Added Salt Type of Dietary Supplement:: Nepro Is pt able to select menu?: No Diet Comments: 120mL w/ meals-thickened; all liquids by straw - Routine Orders/Code Status Suppository Type: Dulcolax 10mg Suppository Frequency: Daily PRN O2 Frequency: Continuous - 2 L Keep PO Greater than or Equal to (%): 92 Routine Lab Work: CBC, BMP Code Status: Full Code - Wound(s) Generalized Wound Type: multiple scabbed areas left stump Wound Type: few scabbed areas - Therapies Physical Therapy: Eval and Treat Occupational Therapy: Eval and Treat Speech Therapy: Eval and Treat - Allergies/Procedures Done in Hospital Allergies/Adverse Reactions: Allergies levofloxacin [From Levaquin] Allergy (Verified 02/22/20 09:13) Pain in joints lisinopril Allergy (Verified 02/22/20 09:13) Angioedema losartan Allergy (Verified 02/22/20 09:13) Angioedema metoclopramide HCl [From Reglan] Allergy (Verified 02/22/20 09:13) Hives - Type of Care/Length of Stay Estimated LOS: More Than 30 Days Type of Care Needed: Skilled Rehab Potential: Fair Prognosis: Fair - Additional Orders/Day of Discharge Day of Discharge: 02/28/20 - Dietary and Speech Recommendations Dietitian Recommendations/Changes: Continue carbohydrate controlled, no added salt diet- consistency per DEHYDROGENATION OPERATOR HEAD. Will add 120mL Nepro CarbSteady ONS w/ meals. - Follow Up Care Primary Care Physician: Jose Graham MD [Primary Care Provider] - Please follow up with your Primary Care Physician in: 1-2 weeks after d/c from SNF
--- NOTE | 2020-02-28 13:27 | DS.PCM_ITS ---
Discharge Date and Diagnosis - Problem List Patient Problems: Active and Suspected Problems (Last Reviewed 08/01/19 @ 12:44 by Dee Mukherjee) Foot ulcer, left (Acute) Left leg and foot cellulitis (Acute) Pneumonia (Acute) Hypoxia (Acute) Hypoglycemia (Acute) Date of Admission: 02/22/20 Date of Discharge: 02/28/20 - Primary Discharge Diagnosis Acute Problems: Active Problems (Last Reviewed 08/01/19 @ 12:44 by Dee Mukherjee) Foot ulcer, left (Acute) Left leg and foot cellulitis (Acute) Pneumonia (Acute) Hypoxia (Acute) Hypoglycemia (Acute) - Secondary Discharge Diagnosis Chronic Problems: Chronic Problems (Last Reviewed 08/01/19 @ 12:44 by Dee Mukherjee) Diabetic peripheral neuropathy (Chronic) ESRD (end stage renal disease) (Chronic) PAD (peripheral artery disease) (Chronic) Chronic renal failure, stage 4 (severe) (Chronic) Gastroparesis due to DM (Chronic) IBS (irritable bowel syndrome) (Chronic) HTN (hypertension) (Chronic) Diabetes type I (Chronic) Myasthenia gravis (Chronic) Hospital Course and Treatment Pulm[facility] Nephrology Operations: None Summary of Care Provided: The patient is a 44 year old M [] Patient Problems: Active and Suspected Problems (Last Reviewed 08/01/19 @ 12:44 by Dee Mukherjee) Foot ulcer, left (Acute) Left leg and foot cellulitis (Acute) Pneumonia (Acute) Hypoxia (Acute) Hypoglycemia (Acute) - Physical Exam Vitals/I&O's: Vital Signs Temp Pulse Resp BP Pulse Ox 97.8 F 112 H 14 115/78 92 02/28/20 13:12 02/28/20 13:12 02/28/20 13:12 02/28/20 13:12 02/28/20 13:12 Oxygen Flow Rate (L/min) 3 Oxygen Delivery Method Nasal Cannula Weight: 40.2 kg Body Mass Index (BMI) 17.2 Finger Stick Blood Glucose 140 Intake and Output for Last 24 Hours 02/26/20 02/27/20 02/28/20 23:59 23:59 23:59 Intake Total 412 / 412 1462 / 1512 55 / 55 Output Total 900 / 900 Balance -488 / -488 1462 / 1512 55 / 55 Microbiology Past 72 Hours 02/27/20 08:05 Stool C. difficile DNA Amplification - Final Laboratory Results 02/27/20 16:42: POC Glucose 59 L 02/27/20 22:01: POC Glucose 101 02/28/20 07:50: WBC 7.5, RBC 4.62, Hgb 12.4 L, Hct 39.2 L, MCV 84.8, MCH 26.8 L, MCHC 31.6 L, RDW Std Deviation 54.6 H, RDW Coeff of Fidel 18.1 H, Plt Count 96 L, Immature Gran % (Auto) 0.800, Neut % (Auto) 87.1 H, Lymph % (Auto) 6.0 L, [place] % (Auto) 2.4, Eos % (Auto) 3.6, Baso % (Auto) 0.1, Absolute Neuts (auto) 6.5, Absolute Lymphs (auto) 0.45 L, Nucleated RBC % 0, Differential Comment COMMENT, Platelet Estimate MOD DEC 02/28/20 07:50: Sodium 143, Potassium 4.0, Chloride 109 H, Carbon Dioxide 25.0, Anion Gap 9, BUN 18, Creatinine 2.89 H, Estim Creat Clear Calc 20.45, Est GFR (MDRD) Af Amer 31 L, Est GFR (MDRD) Non-Af 25 L, BUN/Creatinine Ratio 6.2 L, Glucose 133 H, Calcium 8.5 02/28/20 08:06: POC Glucose 137 H 02/28/20 11:44: POC Glucose 220 H Current Medications Acetaminophen (Acetaminophen 650 Mg/20 Ml Udc) 650 mg GT Q6H PRN PRN PRN Reason: Pain Score 1-10/Temp > 100.7 F Last Admin: 02/27/20 20:04 Dose: 650 mg Documented by: Albuterol Sulfate (Albuterol 2.5 Mg/3 Ml Vial.Neb.) 2.5 mg INHALATION Q2H PRN PRN PRN Reason: Shortness of Breath/Wheezing Last Admin: 02/26/20 02:15 Dose: 2.5 mg Documented by: Albuterol/Ipratropium (Ipratropium/Albuterol Sulfate 3 Ml Ampul.Neb) 3 ml INHALATION Q4HWA.RT [place] Last Admin: 02/28/20 07:01 Dose: 3 ml Documented by: Amitriptyline HCl (Amitriptyline 10 Mg Tablet) 20 mg PO QHS [facility] Last Admin: 02/27/20 20:06 Dose: 20 mg Documented by: Amlodipine Besylate (Amlodipine 10 Mg Tablet) 10 mg PO DAILY [facility] Last Admin: 02/28/20 09:14 Dose: 10 mg Documented by: Aspirin (Aspirin 81 Mg Tab.Chew) 81 mg PO DAILY@0800 [facility] Last Admin: 02/28/20 09:08 Dose: 81 mg Documented by: Bupropion HCl (Bupropion (Sr) 150 Mg Tablet.Sa) 150 mg PO BID [facility] Last Admin: 02/28/20 09:15 Dose: 150 mg Documented by: Calamine/Phenol (Menthol/Lanolin/Calamine/Znox 113 Gm Tube) 1 applic TOPICAL TID [facility]; Protocol Cholestyramine Resin (Cholestyramine/Sucrose 4 Gm/Packet) [facility] Last Admin: 02/28/20 09:12 Dose: 4 gm Documented by: Clopidogrel Bisulfate (Clopidogrel Bisulfate 75 Mg Tablet) 75 mg PO DAILY [facility] Last Admin: 02/28/20 09:14 Dose: 75 mg Documented by: Glucagon (Glucagon 1 Mg/Ml Syringe) 1 mg IM .X1 PRN PRN Reason: Hypoglycemia Sodium Chloride () 250 mls @ 15 mls/hr IV .[id number] PRN PRN Reason: Saline Flush Sodium Chloride () 250 mls @ 15 mls/hr IV .[id number] PRN PRN Reason: Additional IVPB Infusion Ampicillin Sodium/Sulbactam (Sodium 3 gm/ Sodium Chloride) 112 mls @ 150 mls/hr IV Q24H [facility] Last Infusion: 02/27/20 20:00 Dose: Infused Documented by: Insulin Glargine (Insulin Glargine 100 Units/Ml Pen) 8 units SC BREAKFAST [facility] Last Admin: 02/28/20 09:09 Dose: 8 u Documented by: Insulin Human Lispro (Insulin Lispro 100 Unit/Ml Insuln.Pen) 0 unit SC [facility]; Protocol Last Admin: 02/28/20 12:27 Dose: 4 units Documented by: Labetalol HCl (Labetalol (Prefilled) 20 Mg/4 Ml) 40 mg IV Q4H PRN PRN PRN Reason: SBP > 160 Levothyroxine Sodium (Levothyroxine 50 Mcg Tablet) 50 mcg PO DAILY@0600 [facility] Last Admin: 02/28/20 05:47 Dose: 50 mcg Documented by: Melatonin (Melatonin 3 Mg Tablet) 3 mg PO QHS PRN PRN Reason: SLEEP Last Admin: 02/27/20 20:23 Dose: 3 mg Documented by: Metoprolol Tartrate (Metoprolol Tartrate 100 Mg Tablet) 100 mg PO BID [facility] Last Admin: 02/28/20 09:15 Dose: 100 mg Documented by: Montelukast Sodium (Montelukast 10 Mg Tablet) 10 mg PO QHS [facility] Last Admin: 02/27/20 20:08 Dose: 10 mg Documented by: Multivit/Ca Carb/B Cmplx/FA/Prenat (Folic Acid/Vitamin B Comp W-C 1 Capsule) 1 capsule PO DAILY [facility] Last Admin: 02/28/20 09:16 Dose: 1 capsule Documented by: Nitroglycerin (Nitroglycerin (Inpatient Use) 0.4 Mg Tab.Subl) 0.4 mg SUBLINGUAL Q5M PRN PRN Reason: CARDIAC/CHEST PAIN Nystatin (Nystatin 500,000 Unit/5 Ml Udc) 500,000 unit PO 4X/DAY [facility] Stop: 03/02/20 10:01 Last Admin: 02/28/20 09:17 Dose: 500,000 unit Documented by: Ondansetron HCl (Ondansetron 4 Mg/2 Ml Vial) 4 mg IV Q8H PRN PRN PRN Reason: NAUSEA/VOMITING Pantoprazole Sodium (Pantoprazole Sodium 40 Mg Tablet) 40 mg PO DAILY [facility] Last Admin: 02/28/20 09:11 Dose: 40 mg Documented by: Prednisone (Prednisone 20 Mg Tablet) 40 mg PO DAILY@0800 [facility] Last Admin: 02/28/20 09:12 Dose: 40 mg Documented by: Pyridostigmine [place] (Pyridostigmine [place] 60 Mg Tablet) 60 mg PO DAILY [facility] Last Admin: 02/28/20 09:17 Dose: 60 mg Documented by: Sodium Chloride (0.9% Saline Lock 10 Ml Syringe) 10 - 40 ml IV UD PRN PRN Reason: SALINE FLUSH Last Admin: 02/28/20 05:51 Dose: 10 ml Documented by: Home Medications: Medications to take at Discharge Amitriptyline HCl 2 tab PO QHS 02/14/20 Aspirin [Aspirin, Baby] 81 mg PO DAILY@0800 02/14/20 Calcium Acetate 1 cap PO TIDCM 02/14/20 Cholestyramine (with Sugar) [Questran Packet] 4 gm PO BID 02/14/20 Clopidogrel Bisulfate [Plavix] 75 mg PO DAILY 02/14/20 Levothyroxine [Synthroid] 50 mcg PO DAILY 02/14/20 Montelukast Sodium [Singulair] 10 mg PO QHS 02/14/20 Venlafaxine XR [Effexor Xr] 150 mg PO DAILY 02/14/20 Bupropion HCl [Wellbutrin Xl] 150 mg PO BID 02/22/20 Folic Acid/Vit B Complex and C [Renal-Alessandro Tablet] 0.8 mg PO DAILY 02/22/20 Pantoprazole Sodium [Protonix] 40 mg PO DAILY 02/22/20 Pyridostigmine [place] [Mestinon] 60 mg PO DAILY 02/22/20 Triphrocaps 1 mg PO DAILY 02/22/20 Acetaminophen Liquid [Tylenol Liquid] 650 mg GT Q6H PRN PRN udc 02/28/20 Albuterol Aerosols [Ventolin Aerosols] 2.5 mg INHALATION Q2H PRN PRN vial.neb. 02/28/20 Amlodipine [Norvasc] 10 mg PO DAILY #0 tab 02/28/20 Amoxicillin/Potassium Clav [Augmentin 875-125 Tablet] 1 each PO BID #2 tablet 02/28/20 Insulin Glargine [Lantus SoloStar Pen] 8 units SC BREAKFAST pen 02/28/20 Insulin Lispro [Humalog KwikPen] See Protocol SC ACHS insuln.pen 02/28/20 Ipratropium/Albuterol Sulfate [Duoneb] 3 ml INHALATION Q4HWA.RT ampul.neb 02/28/20 Melatonin 3 mg PO QHS PRN tab 02/28/20 Menthol/Lanolin/Calamine/Znox [Calmoseptine Ointment] 1 applic TOPICAL TID tube 02/28/20 Metoprolol Tartrate [Lopressor (beta mariama)] 100 mg PO BID tab 02/28/20 Nystatin 500,000 unit PO 4X/DAY udc 02/28/20 predniSONE tablet 40 mg PO DAILY@0800 tab 02/28/20 Following Prescriptions Were Given to Patient: Amoxicillin/Potassium Clav [Augmentin 875-125 Tablet] 1 each PO BID #2 tablet Primary Care Physician: Jose Graham MD [Primary Care Provider] - Please follow up with your Primary Care Physician in: 1-2 weeks after d/c from SNF Medical Necessity - Tobacco Use Smoking Status: Current every day smoker Tobacco Use: Cigarettes
--- NOTE | 2020-02-28 13:36 | PCM.PN.HOSP ---
Patient Problems: Active and Suspected Problems (Last Reviewed 08/01/19 @ 12:44 by Dee Mukherjee) Foot ulcer, left (Acute) Left leg and foot cellulitis (Acute) Pneumonia (Acute) Hypoxia (Acute) Hypoglycemia (Acute) Subjective: Feels okay. No issues overnight. Overall better. O2 stable on 3 l n/c. Vitals/I&O's: Vital Signs Temp Pulse Resp BP Pulse Ox 97.8 F 112 H 14 115/78 92 02/28/20 13:12 02/28/20 13:12 02/28/20 13:12 02/28/20 13:12 02/28/20 13:12 Oxygen Flow Rate (L/min) 3 Oxygen Delivery Method Nasal Cannula Weight: 40.2 kg Body Mass Index (BMI) 17.2 Finger Stick Blood Glucose 140 Intake and Output for Last 24 Hours 02/26/20 02/27/20 02/28/20 23:59 23:59 23:59 Intake Total 412 / 412 1462 / 1512 55 / 55 Output Total 900 / 900 Balance -488 / -488 1462 / 1512 55 / 55 General: Alert, Oriented x3, Cooperative, No apparent distress, - - Thin, WM appears much older than stated age Lungs: No rhonchi, No wheeze, No rales, Diminished Cardiovascular: Regular rate, Regular Rhythm, Normal S1, Normal S2, No murmurs, No Ectopic Activity, No rub noted, No Gallop Abdomen: Bowel Sounds Present, Soft, Non Tender, Non-Distended Extremities: No clubbing, No cyanosis, No edema, - - L BKA Skin: No rashes, Excoriated Neurological: Cranial nerves II-XII grossly intact, Neuro grossly intact Psych/Mental Status: Appropriate, Flat Affect Microbiology Past 72 Hours 02/27/20 08:05 Stool C. difficile DNA Amplification - Final Laboratory Results 02/27/20 16:42: POC Glucose 59 L 02/27/20 22:01: POC Glucose 101 02/28/20 07:50: WBC 7.5, RBC 4.62, Hgb 12.4 L, Hct 39.2 L, MCV 84.8, MCH 26.8 L, MCHC 31.6 L, RDW Std Deviation 54.6 H, RDW Coeff of Fidel 18.1 H, Plt Count 96 L, Immature Gran % (Auto) 0.800, Neut % (Auto) 87.1 H, Lymph % (Auto) 6.0 L, [place] % (Auto) 2.4, Eos % (Auto) 3.6, Baso % (Auto) 0.1, Absolute Neuts (auto) 6.5, Absolute Lymphs (auto) 0.45 L, Nucleated RBC % 0, Differential Comment COMMENT, Platelet Estimate MOD 02/28/20 07:50: Sodium 143, Potassium 4.0, Chloride 109 H, Carbon Dioxide 25.0, Anion Gap 9, BUN 18, Creatinine 2.89 H, Estim Creat Clear Calc 20.45, Est GFR (MDRD) Af Amer 31 L, Est GFR (MDRD) Non-Af 25 L, BUN/Creatinine Ratio 6.2 L, Glucose 133 H, Calcium 8.5 02/28/20 08:06: POC Glucose 137 H 02/28/20 11:44: POC Glucose 220 H Current Medications Acetaminophen (Acetaminophen 650 Mg/20 Ml Udc) 650 mg GT Q6H PRN PRN PRN Reason: Pain Score 1-10/Temp > 100.7 F Last Admin: 02/27/20 20:04 Dose: 650 mg Documented by: Albuterol Sulfate (Albuterol 2.5 Mg/3 Ml Vial.Neb.) 2.5 mg INHALATION Q2H PRN PRN PRN Reason: Shortness of Breath/Wheezing Last Admin: 02/26/20 02:15 Dose: 2.5 mg Documented by: Albuterol/Ipratropium (Ipratropium/Albuterol Sulfate 3 Ml Ampul.Neb) 3 ml INHALATION Q4HWA.RT [facility] Last Admin: 02/28/20 07:01 Dose: 3 ml Documented by: Amitriptyline HCl (Amitriptyline 10 Mg Tablet) 20 mg PO QHS [facility] Last Admin: 02/27/20 20:06 Dose: 20 mg Documented by: Amlodipine Besylate (Amlodipine 10 Mg Tablet) 10 mg PO DAILY [facility] Last Admin: 02/28/20 09:14 Dose: 10 mg Documented by: Aspirin (Aspirin 81 Mg Tab.Chew) 81 mg PO DAILY@0800 [facility] Last Admin: 02/28/20 09:08 Dose: 81 mg Documented by: Bupropion HCl (Bupropion (Sr) 150 Mg Tablet.Sa) 150 mg PO BID [facility] Last Admin: 02/28/20 09:15 Dose: 150 mg Documented by: Calamine/Phenol (Menthol/Lanolin/Calamine/Znox 113 Gm Tube) 1 applic TOPICAL TID [facility]; Protocol Cholestyramine Resin (Cholestyramine/Sucrose 4 Gm/Packet) 4 gm PO BIDCM [facility] Last Admin: 02/28/20 09:12 Dose: 4 gm Documented by: Clopidogrel Bisulfate (Clopidogrel Bisulfate 75 Mg Tablet) 75 mg PO DAILY [facility] Last Admin: 02/28/20 09:14 Dose: 75 mg Documented by: Glucagon (Glucagon 1 Mg/Ml Syringe) 1 mg IM .X1 PRN PRN Reason: Hypoglycemia Sodium Chloride () 250 mls @ 15 mls/hr IV .[id number] PRN PRN Reason: Saline Flush Sodium Chloride () 250 mls @ 15 mls/hr IV .[id number] PRN PRN Reason: Additional IVPB Infusion Ampicillin Sodium/Sulbactam (Sodium 3 gm/ Sodium Chloride) 112 mls @ 150 mls/hr IV Q24H [facility] Last Infusion: 02/27/20 20:00 Dose: Infused Documented by: Insulin Glargine (Insulin Glargine 100 Units/Ml Pen) 8 units SC BREAKFAST [facility] Last Admin: 02/28/20 09:09 Dose: 8 u Documented by: Insulin Human Lispro (Insulin Lispro 100 Unit/Ml Insuln.Pen) 0 unit SC ACHS [facility]; Protocol Last Admin: 02/28/20 12:27 Dose: 4 units Documented by: Labetalol HCl (Labetalol (Prefilled) 20 Mg/4 Ml) 40 mg IV Q4H PRN PRN PRN Reason: SBP > 160 Levothyroxine Sodium (Levothyroxine 50 Mcg Tablet) 50 mcg PO DAILY@0600 [facility] Last Admin: 02/28/20 05:47 Dose: 50 mcg Documented by: Melatonin (Melatonin 3 Mg Tablet) 3 mg PO QHS PRN PRN Reason: SLEEP Last Admin: 02/27/20 20:23 Dose: 3 mg Documented by: Metoprolol Tartrate (Metoprolol Tartrate 100 Mg Tablet) 100 mg PO BID [facility] Last Admin: 02/28/20 09:15 Dose: 100 mg Documented by: Montelukast Sodium (Montelukast 10 Mg Tablet) 10 mg PO QHS [facility] Last Admin: 02/27/20 20:08 Dose: 10 mg Documented by: Multivit/Ca Carb/B Cmplx/FA/Prenat (Folic Acid/Vitamin B Comp W-C 1 Capsule) 1 capsule PO DAILY [facility] Last Admin: 02/28/20 09:16 Dose: 1 capsule Documented by: Nitroglycerin (Nitroglycerin (Inpatient Use) 0.4 Mg Tab.Subl) 0.4 mg SUBLINGUAL Q5M PRN PRN Reason: CARDIAC/CHEST PAIN Nystatin (Nystatin 500,000 Unit/5 Ml Udc) 500,000 unit PO 4X/DAY [facility] Stop: 03/02/20 10:01 Last Admin: 02/28/20 09:17 Dose: 500,000 unit Documented by: Ondansetron HCl (Ondansetron 4 Mg/2 Ml Vial) 4 mg IV Q8H PRN PRN PRN Reason: NAUSEA/VOMITING Pantoprazole Sodium (Pantoprazole Sodium 40 Mg Tablet) 40 mg PO DAILY [facility] Last Admin: 02/28/20 09:11 Dose: 40 mg Documented by: Prednisone (Prednisone 20 Mg Tablet) 40 mg PO DAILY@0800 [facility] Last Admin: 02/28/20 09:12 Dose: 40 mg Documented by: Pyridostigmine [place] (Pyridostigmine [place] 60 Mg Tablet) 60 mg PO DAILY [facility] Last Admin: 02/28/20 09:17 Dose: 60 mg Documented by: Sodium Chloride (0.9% Saline Lock 10 Ml Syringe) 10 - 40 ml IV UD PRN PRN Reason: SALINE FLUSH Last Admin: 02/28/20 05:51 Dose: 10 ml Documented by: STROKE Vital Signs/Narrative: Vital Signs Temp Pulse Resp BP Pulse Ox 02/28/20 13:12 97.8 F 112 H 14 115/78 92 02/28/20 12:58 76 Medical Necessity - Tobacco Use Smoking Status: Current every day smoker Tobacco Use: Cigarettes Assessment/Plan All Active Problems (Last Reviewed 08/01/19 @ 12:44 by Dee Mukherjee) Diabetic nephropathy, type I (Acute) Foot ulcer, left (Acute) Left leg and foot cellulitis (Acute) Pneumonia (Acute) Hypoxia (Acute) Hypoglycemia (Acute) Acute Hypoxic Respiratory Failure-Multifactorial -flash pulm edema/Acute B PNA/AECOPD -now on 4L nasal cannula -wean as able -COVID was neg 02/21 -Urinary Legionella and streptococcal antigen negative -resp viral PCR neg -Unasyn only for abx day 09/30--> completes today -prednisone 40 mg daily--> would taper slowly at [facility] (last decreased on 02/26) -CXR stable to sightly improved -pulm following DKA -resolved DM-1 with severe Hypoglycemia -2/2 Insulin pump failure, gastroparesis and ESRD -Lantus 8 u daily am -cont Puree/NTL diet -SSI -add scheduled log if needed -monitor BGT and labs Hypokalemia -resolved Hypophosphatemia -30 mmol bolus and repeat in am Thrush -nystatin x5 day -resolving Dysphagia -PROGRAM DIRECTOR SCOUTING following -puree/NTL ESRD on HD -typically TRS HD -Nephro is following Thrombocytopenia -suspected to be related to sepsis -better again today -hold heparin products -HIT ab pending--> drawn 02/25 Anemia of Chronic Renal Disease -hgb is stable -monitor Myasthenia gravis -continue pyridostigmine Severe PAD -asa and plavix--> watch plts -s/p L BKA HTN -BP remains elevated -increase Metoprolol to 100 mg BID (home dose 200 BID) -increase Amlodipine to 10 mg daily (home dose 10 mg daily) -PRN Labetalol available -monitor Depression -restart meds on d/c Hypothyroidism -synthroid Severe Malnutrition -dietitian following -PO diet started DVT/GI Prophylaxis -drop in plts -no heparin -scd's -PPI Code status -Full DISPO -D/C SNF tomorrow after HD Inpatient E&M: [id number] Subs Hosp L2
[2020-02-28 16:40] LABS: Bedside Glucose 250 mg/dL (70-110)
[2020-02-28] MEDS: Menthol/Lanolin/Calamine/Znox 113 GM Tube 1 APPLIC TOPICAL ×2 (17:30→23:02)
[2020-02-28] MEDS: Amitriptyline 10 MG Tablet 20 MG PO (23:01)
[2020-02-28] MEDS: Montelukast 10 MG Tablet PO (23:02)
[2020-02-29] VITALS (10 sets, daily range): BP systolic 130–152; BP diastolic 88–96; PULSE 63–87; RESP 16–18; TEMP 36.4–36.7; O2SAT 97–100
[2020-02-29 02:10] LABS: Bedside Glucose 224 mg/dL (70-110)
[2020-02-29] MEDS: Levothyroxine 50 MCG Tablet PO (06:32)
[2020-02-29] MEDS: Menthol/Lanolin/Calamine/Znox 113 GM Tube 1 APPLIC TOPICAL ×2 (06:32→13:59)
[2020-02-29 06:46] LABS: Bedside Glucose 233 mg/dL (70-110)
[2020-02-29] MEDS: Ipratropium/Albuterol Sulfate 3 ML AMPUL.NEB INHALATION ×3 (06:54→14:57)
[2020-02-29] MEDS: Insulin Lispro 100 UNIT/ML INSULN.PEN SC ×2 (07:15→16:51)
[2020-02-29 08:10] LABS: Absolute Lymphocyte Count 0.78 X10^3/uL (0.83-4.51); Absolute Neutrophil Count 7.8 X10^3/uL (2.0-7.7); Basophil# 0.01 X10^3/uL; Basophil% 0.1 % (0-1); Eosinophils% 2.2 % (0-5); Hematocrit 39.6 % (40-54); Hemoglobin 12.5 g/dL (13.0-16.5); Lymphocyte # 0.78 X10^3/ul (4.0); Lymphocyte % 8.6 % (19-41); Mean Corp Hgb Conc 31.6 g/dL (32-36); Mean Corpuscular Hgb 26.7 pg (27.0-32.0); Mean Corpuscular Volume 84.6 fL (80-94); Monocyte# 0.25 X10^3/uL; Monocyte% 2.8 % (0-10); NRBC Flagged by Analyzer 0 % (0-5); Neutrophil # 7.79 X10^3/uL (2.7-7.7); Neutrophil % 85.9 % (47-70); Platelet Count 130 K/mm3 (150-450); RBC Distribution Width CV 18.1 % (11.6-14.6); RBC Distribution Width SD 54.9 fl (35.1-43.9); Red Blood Count 4.68 M/mm3 (4.6-6.2); White Blood Count 9.1 K/mm3 (4.4-11.0)
[2020-02-29 08:32] LABS: Anion Gap 8 (5-15); BUN 27 mg/dL (7-18); BUN/Creat Ratio 7.4 RATIO (10-20); Calcium,Total 8.6 mg/dL (8.5-10.1); Chloride 109 mmol/L (98-107); Creatinine, Serum 3.66 mg/dL (0.70-1.30); EST Glomerular Filtration Rate 19 mL/min (>60); Est Glom Filt Rate - Afr Amer 23 mL/min (>60); Estimated Creatinine Clearance 14.34 ml/min; Glucose 243 mg/dL (74-106); Phosphorus 3.7 mg/dL (2.5-4.9); Sodium Level 141 mmol/L (136-145)
[2020-02-29 11:36] LABS: Bedside Glucose 181 mg/dL (70-110)
--- NOTE | 2020-02-29 12:34 | DIALYSIS ---
Hemodialysis completed. Fluid removed was 1 liter. Patient tolerated well. Next HD will be Monday03/02/20 at outpatient clinic
[2020-02-29] MEDS: amLODIPine 10 MG Tablet PO (13:56)
[2020-02-29] MEDS: Metoprolol Tartrate 100 MG Tablet PO (13:56)
[2020-02-29] MEDS: buPROPion (SR) 150 MG Tablet.SA PO (13:57)
[2020-02-29] MEDS: predniSONE 20 MG Tablet 40 MG PO (13:57)
[2020-02-29] MEDS: NYSTATIN 500,000 UNIT/5 ML UDC 500000 UNIT PO ×2 (13:57)
[2020-02-29] MEDS: Aspirin 81 MG TAB.CHEW PO (13:57)
[2020-02-29] MEDS: Cholestyramine/Sucrose 4 GM/PACKET PO (13:57)
[2020-02-29] MEDS: Pyridostigmine Bromide 60 MG Tablet PO (13:58)
[2020-02-29] MEDS: Folic Acid/Vitamin B Comp W-C 1 Capsule 1 CAP PO (13:58)
[2020-02-29] MEDS: Pantoprazole Sodium 40 MG Tablet PO (13:58)
[2020-02-29] MEDS: Clopidogrel Bisulfate 75 MG Tablet PO (13:59)
--- NOTE | 2020-02-29 14:21 | TREXTCAR_ITS ---
- Diet 02/25/20 15:43 Diet: Carbohydrate Controlled Food consistency:: Pureed Liquid Consistency:: Moncure/Mildly Thick Dietary Modifications:: No Added Salt Type of Dietary Supplement:: Nepro Is pt able to select menu?: No Diet Comments: 120mL w/ meals-thickened; all liquids by straw - Routine Orders/Code Status Suppository Type: Dulcolax 10mg Suppository Frequency: Daily PRN O2 Frequency: Continuous - 2 L Keep PO Greater than or Equal to (%): 92 Routine Lab Work: CBC, BMP Code Status: Full Code - Wound(s) Generalized Wound Type: multiple scabbed areas left stump Wound Type: few scabbed areas - Therapies Physical Therapy: Eval and Treat Occupational Therapy: Eval and Treat Speech Therapy: Eval and Treat - Problem/Diagnosis (1) Respiratory failure Status: Acute (2) End stage chronic kidney disease Status: Chronic (3) Diabetic peripheral neuropathy Status: Chronic (4) Pneumonia Status: Acute (5) Diabetes type I Status: Chronic (6) Myasthenia gravis Status: Chronic (7) Peripheral vascular disease Status: Chronic Comment: remote left BKA (8) Hypoglycemia Status: Acute (9) HTN (hypertension) Status: Chronic - Allergies/Procedures Done in Hospital Allergies/Adverse Reactions: Allergies levofloxacin [From Levaquin] Allergy (Verified 02/22/20 09:13) Pain in joints lisinopril Allergy (Verified 02/22/20 09:13) Angioedema losartan Allergy (Verified 02/22/20 09:13) Angioedema metoclopramide HCl [From Reglan] Allergy (Verified 02/22/20 09:13) Hives - Type of Care/Length of Stay Estimated LOS: More Than 30 Days Type of Care Needed: Skilled Rehab Potential: Fair Prognosis: Fair - Additional Orders/Day of Discharge Day of Discharge: 02/28/20 - Dietary and Speech Recommendations Dietitian Recommendations/Changes: Continue carbohydrate controlled, no added salt diet- consistency per [employer] C[employer]ER. Will add 120mL Nepro CarbSteady ONS w/ meals. - Follow Up Care Primary Care Physician: Jose Graham MD [Primary Care Provider] - Please follow up with your Primary Care Physician in: 1-2 weeks after d/c from SNF
--- NOTE | 2020-02-29 16:47 | NURSING ---
Placed a call to [facility], Transport to [place] set up for [address] Aware.
[2020-02-29 17:01] LABS: Bedside Glucose 330 mg/dL (70-110)
--- NOTE | 2020-03-01 16:28 | DS.PCM_ITS ---
Discharge Date and Diagnosis - Problem List Patient Problems: Active and Suspected Problems (Last Reviewed 08/01/19 @ 12:44 by Dee Mukherjee) Respiratory failure (Acute) Foot ulcer, left (Acute) Left leg and foot cellulitis (Acute) Pneumonia (Acute) Hypoxia (Acute) Hypoglycemia (Acute) Date of Admission: 02/22/20 Date of Discharge: 02/29/20 - Primary Discharge Diagnosis Acute Problems: Active Problems (Last Reviewed 08/01/19 @ 12:44 by Dee Mukherjee) #1 acute combined respiratory failure secondary to hypoglycemia and possible community-acquired pneumonia #2 possible community-acquired pneumonia #3 hypoglycemia secondary to insulin pump failure and gastroparesis on a backdrop of end-stage renal disease #4 end-stage renal disease on dialysis #5 peripheral vascular disease #6 acute metabolic encephalopathy #7 asthenia gravis #8 anemia of chronic renal disease #9 diabetic ketoacidosis #10 type 1 diabetes Patient has no confirmatory documentation for malnutrition - Secondary Discharge Diagnosis Chronic Problems: Chronic Problems (Last Reviewed 08/01/19 @ 12:44 by Dee Mukherjee) End stage chronic kidney disease (Chronic) Peripheral vascular disease (Chronic) remote left BKA Diabetic peripheral neuropathy (Chronic) ESRD (end stage renal disease) (Chronic) PAD (peripheral artery disease) (Chronic) Chronic renal failure, stage 4 (severe) (Chronic) Gastroparesis due to DM (Chronic) IBS (irritable bowel syndrome) (Chronic) HTN (hypertension) (Chronic) Diabetes type I (Chronic) Myasthenia gravis (Chronic) Hospital Course and Treatment Operations: None Procedures: Dialysis, Intubation Summary of Care Provided: The patient is a 44 year old M was seen in the emergency room at [facility] after being brought in by squad due to hypoglycemia. Patient has an insulin pump and is a type I diabetic. Work-up in the emergency room showed her his initial blood glucose level to be 69, his glucose on metabolic profile was 29, creatinine was 2.98, BUN was 20. Patient CBC showed mild anemia with hemoglobin of 12.5, chest x-ray was obtained and showed pleural effusions bilateral infiltrates but no pneumothorax. Rapid COVID-19 test was ordered and it was negative. Patient was given an amp of D50 and the patient's insulin pump was disconnected. Patient was placed on 2 L of oxygen and started on Rocephin and Zithromax for possible community-acquired pneumonia. Patient was admitted, kept on IV antibiotics, seen in consultation by nephrology due to his end-stage renal disease and on 02/22/2020, rapid response was called and the patient had to be emergently intubated due to acidosis and respiratory failure. Patient's antibiotic coverage was changed and he was seen by critical care, patient was placed on an insulin drip for DKA. Patient's condition stabilized over the next several days and he was moved out to [place] [id number]. He was seen by PT and OT as well as nutritional services. Nutritional services could not find a confirming diagnosis of malnutrition. It was a recommendation of physical therapy that the patient consider transfer to a [facility] facility at the time of discharge for further inpatient skilled services and he agreed. On 02/29/2020, patient was seen and examined: On examination he appeared in good health and spirits. Vital signs as documented. Skin warm and dry and without overt rashes. Neck without JVD, neck was supple, trachea midline, thyroid was normal. Lungs clear bilaterally, normal air movement was noted. Heart exam notable for regular rhythm, normal sounds and absence of murmurs, rubs or gallops. Abdomen unremarkable and without evidence of organomegaly, masses, or abdominal aortic enlargement. Bowel sounds are present, abdomen is not distended. Extremities nonedematous-patient has a below the knee amputation noted on the left which is remote, no cyanosis was noted, no clubbing was noted. Neuro: Cranial nerves II through XII are grossly intact, no focal motor deficits were noted, sensation to light touch and pinprick intact, motor exam 5/5 throughout. Psych: Patient is alert and oriented x3, he does not appear anxious or depressed, he does not appear agitated. Patient appears stable for discharge to [facility] facility on 02/29/2020. Patient Problems: Active and Suspected Problems (Last Reviewed 08/01/19 @ 12:44 by Dee Mukherjee) Respiratory failure (Acute) Foot ulcer, left (Acute) Left leg and foot cellulitis (Acute) Pneumonia (Acute) Hypoxia (Acute) Hypoglycemia (Acute) - Physical Exam Vitals/I&O's: Vital Signs Temp Pulse Resp BP Pulse Ox 98.0 F 74 16 135/89 H 97 02/29/20 13:54 02/29/20 14:57 02/29/20 14:57 02/29/20 13:54 02/29/20 13:54 Oxygen Flow Rate (L/min) 2 Oxygen Delivery Method Room Air Weight: 39.78 kg Body Mass Index (BMI) 17.2 Finger Stick Blood Glucose 140 Intake and Output for Last 24 Hours 02/28/20 02/29/20 03/01/20 23:59 23:59 23:59 Intake Total 172 / 1727 240 / 240 Output Total 1999 Balance 1727 / 1727 -1760 / -1760 Microbiology Past 72 Hours 02/29/20 13:16 Mucosa - Nose SARS-CoV-2 Antigen (Rapid) - Final Laboratory Results 02/29/20 16:49: POC Glucose 330 H Home Medications: Medications to take at Discharge Amitriptyline HCl 2 tab PO QHS 02/14/20 Aspirin [Aspirin, Baby] 81 mg PO DAILY@0800 02/14/20 Calcium Acetate 1 cap PO TIDCM 02/14/20 Cholestyramine (with Sugar) [Questran Packet] 4 gm PO BID 02/14/20 Clopidogrel Bisulfate [Plavix] 75 mg PO DAILY 02/14/20 Levothyroxine [Synthroid] 50 mcg PO DAILY 02/14/20 Montelukast Sodium [Singulair] 10 mg PO QHS 02/14/20 Venlafaxine XR [Effexor Xr] 150 mg PO DAILY 02/14/20 Bupropion HCl [Wellbutrin Xl] 150 mg PO BID 02/22/20 Folic Acid/Vit B Complex and C [Renal-Alessandro Tablet] 0.8 mg PO DAILY 02/22/20 Pantoprazole Sodium [Protonix] 40 mg PO DAILY 02/22/20 Pyridostigmine Toney [Mestinon] 60 mg PO DAILY 02/22/20 Triphrocaps 1 mg PO DAILY 02/22/20 Acetaminophen Liquid [Tylenol Liquid] 650 mg GT Q6H PRN PRN udc 02/28/20 Albuterol Aerosols [Ventolin Aerosols] 2.5 mg INHALATION Q2H PRN PRN vial.neb. 02/28/20 Amlodipine [Norvasc] 10 mg PO DAILY #0 tab 02/28/20 Amoxicillin/Potassium Clav [Augmentin 875-125 Tablet] 1 ea PO BID #2 tab 02/28/20 Insulin Glargine [Lantus SoloStar Pen] 8 units SC BREAKFAST pen 02/28/20 Insulin Lispro [Humalog KwikPen] See Protocol SC ACHS insuln.pen 02/28/20 Ipratropium/Albuterol Sulfate [Duoneb] 3 ml INHALATION Q4HWA.RT ampul.neb 02/28/20 Melatonin 3 mg PO QHS PRN tab 02/28/20 Menthol/Lanolin/Calamine/Znox [Calmoseptine Ointment] 1 applic TOPICAL TID tube 02/28/20 Metoprolol Tartrate [Lopressor (beta mariama)] 100 mg PO BID tab 02/28/20 Nystatin 500,000 unit PO 4X/DAY udc 02/28/20 predniSONE tablet 40 mg PO DAILY@0800 tab 02/28/20 Following Prescriptions Were Given to Patient: Amoxicillin/Potassium Clav [Augmentin 875-125 Tablet] 1 ea PO BID #2 tab Primary Care Physician: Jose Graham MD [Primary Care Provider] - Please follow up with your Primary Care Physician in: 1-2 weeks after d/c from SNF Disposition: Senior Living facility Minutes spent on discharge:: 32 Patient Condition:: Stable Medical Necessity - Tobacco Use Smoking Status: Current every day smoker Tobacco Use: Cigarettes Meaningful Use Info Meaningful Use Diagnoses (Choose all that apply): None applicable Inpatient E&M: 35581 Disch Hosp
[2020-03-02 04:25] LABS: Heparin-Induced Plt Ab 0.357 OD (0.000-0.400)
== END 2020-02-29 19:00 | disposition skilled nursing facility (03) | DRG 208 ==
LOC: ED 13:07 → MS3 13:16 → ICU 02-23 18:45 → MS3 02-26 20:28
PROVIDERS: Internal Medicine; Internal Medicine Nephrology; Physician Assistant; Admitting Provider Internal Medicine; Emergency Provider Emergency Medicine; PCP Family Medicine; Visit Provider Internal Medicine
DX: J18.9 Pneumonia, unspecified organism (principal); E10.10 Type 1 diabetes mellitus with ketoacidosis without coma; G93.41 Metabolic encephalopathy; N18.6 End stage renal disease; E43 Unspecified severe protein-calorie malnutrition; J81.0 Acute pulmonary edema; J96.01 Acute respiratory failure with hypoxia; A41.9 Sepsis, unspecified organism; T85.694A Other mechanical complication of insulin pump, initial encounter; J44.1 Chronic obstructive pulmonary disease with (acute) exacerbation; J90 Pleural effusion, not elsewhere classified; R64 Cachexia; J81.1 Chronic pulmonary edema; B37.9 Candidiasis, unspecified; D63.1 Anemia in chronic kidney disease; Z79.4 Long term (current) use of insulin; E87.6 Hypokalemia; E83.39 Other disorders of phosphorus metabolism; T38.3X5A Adverse effect of insulin and oral hypoglycemic [antidiabetic] drugs, initial encounter; E16.0 Drug-induced hypoglycemia without coma; D69.59 Other secondary thrombocytopenia; K31.84 Gastroparesis; Y74.2 Prosthetic and other implants, materials and accessory general hospital and personal-use devices associated with adverse incidents; G70.00 Myasthenia gravis without (acute) exacerbation; F17.210 Nicotine dependence, cigarettes, uncomplicated; Z79.02 Long term (current) use of antithrombotics/antiplatelets; Z99.2 Dependence on renal dialysis; Z79.890 Hormone replacement therapy; Z82.49 Family history of ischemic heart disease and other diseases of the circulatory system; Z89.512 Acquired absence of left leg below knee; Z90.49 Acquired absence of other specified parts of digestive tract; Z91.15 Patient's noncompliance with renal dialysis; Z91.19 Patient's noncompliance with other medical treatment and regimen; Z96.41 Presence of insulin pump (external) (internal); K58.9 Irritable bowel syndrome, unspecified; R13.10 Dysphagia, unspecified; F32.9 Major depressive disorder, single episode, unspecified; E03.9 Hypothyroidism, unspecified; I73.9 Peripheral vascular disease, unspecified; E10.621 Type 1 diabetes mellitus with foot ulcer; E10.43 Type 1 diabetes mellitus with diabetic autonomic (poly)neuropathy; E10.42 Type 1 diabetes mellitus with diabetic polyneuropathy; E10.649 Type 1 diabetes mellitus with hypoglycemia without coma; L97.529 Non-pressure chronic ulcer of other part of left foot with unspecified severity; E10.51 Type 1 diabetes mellitus with diabetic peripheral angiopathy without gangrene
CPT/HCPCS: 31500; 31720; 36415; 36600; 71045; 74018; 80048; 80053; 80069; 80074; 80202; 82009; 82140; 82374; 82803; 82962; 83036; 83605; 83735; 83930; 84100; 85025; 85610; 86022; 87426; 87449; 87493; 87633; 90937; 92526; 92610; 93005; 94002; 94003; 94640; 94660; 97162; 97166; 97530; 97535; 97802; 97803; 99251; 99285; 99406; J7030; J7050; P9047; A4216; G0257; G0463; J0295; J3010

== ENCOUNTER 2020-05-19 10:47 | Emergency (ER) | payer MEDICARE, MEDICAID, SELFPAY ==
[2020-02-23 10:34] VITALS: BMI 17.2
[2020-05-19 10:48] VITALS: BP 181/105; PULSE 78; RESP 16; TEMP 36.4; O2SAT 97; BMI 16.4
--- NOTE | 2020-05-19 11:02 | ED.DCSUM_ITS ---
- ER Visit Summary Date of Service: 05/19/20 Chief Complaint: Bleeding from left forearm dialysis fistula History of Present Illness: The patient is a 44 M 3 of independent diabetes, COPD, end-stage renal disease with dialysis Monday last dialyzed yesterday and history of gastroparesis. Patient is anticoagulated when he gets dialysis he gets heparin he is also on Plavix and aspirin daily. Patient states since his dialysis yesterday which was 1145 to about 4 PM he has been mildly oozing. The dressing was last changed about 3 hours ago. He denies any pulsatile bleeding. No swelling to his arm. He has had this happen in the past. Physical Examination: Middle-aged male no acute distress vital signs stable afebrile. H EENT exam unremarkable. Lungs clear to auscultation. Heart regular rhythm rate about 75 no murmur. Chest were nontender. Abdomen soft n ontender. Patient moving all 4 extremities. He has a left below the knee amputation. Neurologically is awake and alert with no focal motor deficits. Test Results: None Emergency Department Course and Treatment: We will clean and redress the left forearm fistula where it is very mildly oozing. There is no pulsatile bleeding. We will apply pressure and Gelfoam to the area. Dr. Chao Wei came to evaluate the patient. Asked me to place a [id number]-[id number]-dayel stitch which I did. Parental watches his loss of bleeding as stopped and will be discharged home with a dressing on it. Remove the stitch in 5 days. Treatment Plan: Watch for any signs of bleeding. Pressure to the area. Stitch out in 5 days. Return if any issues. Disposition: Discharge Impression: Bleeding from the left forearm fistula site History of end-stage renal disease with dialysis Anticoagulated on aspirin and Plavix History of diabetes This note was generated with [employer] software. It may contain incorrect words, spelling, and punctuation that were not noted in review of the chart prior to signing ED Disposition - Plan for ED Patient: Referrals: Jose Graham MD [Primary Care Provider] -
[2020-05-19] MEDS: Lidocaine/Epi/Tetracaine 50 ML 1 APPLIC TOPICAL (11:30)
[2020-05-19 12:52] VITALS: BP 164/94; PULSE 78
--- NOTE | 2020-05-19 13:00 | ED.DEP ---
ED Disposition - Plan for ED Patient: Disposition: Home or Assisted Living Referrals: Chao Wei MD [STAFF PHYSICIAN] - 5 Days for suture removal Additional Instructions: Follow-up with Dr. Wei if needed. We can take the stitches out or you can or the dialysis center can. It should come out in 5 days. Rec pressure of the area. Leave the dressing on unless it gets soaked with blood.
[2020-05-19 13:35] VITALS: BP 169/74; PULSE 79; RESP 16; O2SAT 98
--- NOTE | 2020-05-19 13:35 | ED.RN ---
Called for transport back to [place]. ETA 90 min
--- NOTE | 2020-05-19 13:36 | ED.RN ---
NURSE TO NURSE CALLED TO [facility]
== END 2020-05-19 15:10 ==
PROVIDERS: Emergency Provider Emergency Medicine; PCP Family Medicine
DX: T82.838A Hemorrhage due to vascular prosthetic devices, implants and grafts, initial encounter (principal); Y83.8 Other surgical procedures as the cause of abnormal reaction of the patient, or of later complication, without mention of misadventure at the time of the procedure; Y92.9 Unspecified place or not applicable; E11.22 Type 2 diabetes mellitus with diabetic chronic kidney disease; E11.43 Type 2 diabetes mellitus with diabetic autonomic (poly)neuropathy; J44.9 Chronic obstructive pulmonary disease, unspecified; N18.6 End stage renal disease; Z79.02 Long term (current) use of antithrombotics/antiplatelets; Z79.82 Long term (current) use of aspirin; Z99.2 Dependence on renal dialysis; Z89.512 Acquired absence of left leg below knee; K31.84 Gastroparesis; Z72.0 Tobacco use; I13.0 Hypertensive heart and chronic kidney disease with heart failure and stage 1 through stage 4 chronic kidney disease, or unspecified chronic kidney disease
CPT/HCPCS: 12001; 99284; A4216

== ENCOUNTER → 2020-07-04 06:51 | Outpatient (CLI) | payer MEDICARE, MEDICAID, SELFPAY ==
--- NOTE | 2020-07-04 07:18 | MRI_ITS ---
STUDY: MRI RIGHT SHOULDER REASON FOR EXAM: Male, 44 years old. PAIN TECHNIQUE: Standardized fat and water weighted pulse sequences were obtained in all 3 orthogonal planes. COMPARISON: X-ray 08/16/2019 FINDINGS: Mild supraspinatus and infraspinatus tendinosis and peritendinitis is but no macro tear or muscular atrophy. Normal subscapularis tendon. Normal teres minor tendon. Normal supraspinatus muscle. Normal infraspinatus muscle. Normal subscapularis muscle. Normal teres minor muscle. Normal glenohumeral articulation. Mild stress reaction of the greater tuberosity at the insertion of the infraspinatus. Subcentimeter of a markedly hypointense lesion of the humeral head consistent with a bone island as seen on radiograph. Normal biceps labral complex. Normal intracapsular long biceps tendon. Normal labrum. Normal capsulo- ligamentous complex. Normal rotator interval. There is mild osteoarthritis of the acromioclavicular articulation. There is a Type II morphology (curved), with a neutral orientation. There is no subacromial-subdeltoid bursal fluid. Normal visualized coracohumeral and coracoacromial ligaments. Normal quadrilateral space. Normal axillary space. Normal deltoid muscle. Normal trapezius muscle. MRI/Upper Ext Joint Only(Routine) IMPRESSION: 1. Mild supraspinatus and infraspinatus tendinosis and peritendinitis is but no macro tear or muscular atrophy. 2. Mild acromioclavicular joint arthrosis. Electronically Signed: Guru Ramos MD at 16:53 EDT Tel , Service support ,
== END ==
PROVIDERS: PCP Family Medicine; Referring Provider Registered Nurse; Visit Provider Registered Nurse
DX: G89.29 Other chronic pain (principal)
CPT/HCPCS: 73221

== ENCOUNTER 2020-07-18 14:09 | Emergency (ER) | payer MEDICARE, MEDICAID, SELFPAY ==
[2020-07-07 13:56] VITALS: BMI 17.7
[2020-07-18 14:10] VITALS: BP 103/69; PULSE 71; RESP 16; TEMP 36.5; O2SAT 95; BMI 17.1
[2020-07-18 14:42] LABS: Absolute Lymphocyte Count 0.88 X10^3/uL (0.83-4.51); Basophil# 0.06 X10^3/uL; Eosinophils% 3.5 % (0-5); Hematocrit 35.7 % (40-54); Hemoglobin 10.9 g/dL (13.0-16.5); Lymphocyte # 0.88 X10^3/ul (0.83-4.51); Lymphocyte % 15.3 % (19-41); Mean Corp Hgb Conc 30.5 g/dL (32-36); Mean Corpuscular Hgb 29.8 pg (27.0-32.0); Mean Corpuscular Volume 97.5 fL (80-94); Mean Platelet Vol. 11.8 fl (6.2-12.0); Monocyte# 0.61 X10^3/uL; Monocyte% 10.6 % (0-10); NRBC Flagged by Analyzer 0 % (0-5); Neutrophil # 3.97 X10^3/uL (2.7-7.7); Neutrophil % 69.3 % (47-70); Platelet Count 208 K/mm3 (150-450); RBC Distribution Width CV 14.5 % (11.6-14.6); RBC Distribution Width SD 52.5 fl (35.1-43.9); Red Blood Count 3.66 M/mm3 (4.6-6.2); White Blood Count 5.7 K/mm3 (4.4-11.0)
[2020-07-18 14:50] LABS: International Normalized Ratio 1.1; Prothrombin Time (Protime)PT. 13.3 SECONDS (11.7-14.9)
[2020-07-18 14:51] LABS: Partial Thromboplast Time 33.9 Seconds (24.1-36.2)
[2020-07-18 14:59] LABS: Anion Gap 7 (5-15); BUN 44 mg/dL (7-18); BUN/Creat Ratio 14.7 RATIO (10-20); Chloride 100 mmol/L (98-107); EST Glomerular Filtration Rate 24 mL/min (>60); Est Glom Filt Rate - Afr Amer 29 mL/min (>60); Estimated Creatinine Clearance 21.15 ml/min; Glucose 316 mg/dL (74-106); Potassium 4.2 mmol/L (3.5-5.1); Sodium Level 134 mmol/L (136-145)
[2020-07-18] MEDS: Lidocaine 1% /Epi 1:100 (20ml) 20 ML Vial INFILT (15:12)
--- NOTE | 2020-07-18 15:22 | ED.VISSUMM ---
- ER Visit Summary Date of Service: 07/18/20 Chief Complaint: Bleeding from fistula History of Present Illness: The patient is a [address] Vang and Dr. Lopez. Patient reports that he had dialysis 2 days ago and has been oozing from the insertion site in his fistula ever since. He last change dressing 7:00 this morning. He denies any other complaints. Physical Examination: Vitals: Stable. Afebrile. General: Well-nourished and well-developed. Head: Normocephalic atraumatic. Neck: Supple, no lymphadenopathy. No JVD. Nontender. Cardiovascular: Regular rate and rhythm. No murmurs. Respiratory: No respiratory distress. Clear to auscultation bilaterally. Abdominal: Soft, nontender, nondistended, normal bowel sounds. No guarding, rebound, or peritoneal signs. Back: Nontender. Extremities: Left forearm fistula does have mild active bleeding. There is a thrill.. Skin: Normal color, no rash. Neurologic: Alert and oriented ?3. Cranial nerves II through XII are intact. Normal strength and sensation. Psych: Normal affect. Test Results: CBC shows an H&H 10.9 and 35.7. Of note his platelets are normal at 208. Chem-7 shows a sodium 134, glucose 316, BUN 44, creatinine 3.0, calcium of 8.0. INR is 1.1. PTT is 33.9. Emergency Department Course and Treatment: Patient initially had Gelfoam and a dressing placed. Unfortunately this did not stop the bleeding. He then had the area anesthetized with 1% lidocaine with epinephrine and a single stitch was placed with 5-0 Ethilon. He tolerated this well and the bleeding resolved. Treatment Plan: Patient had this fistula placed approximately [address] Chao Wei. He will be discharged instructions follow-up with him in 1 week for suture removal. Return to the emergency department for any worsening symptoms. Disposition: To home in improved and stable condition. Impression: Bleeding from left forearm AV fistula. 2. Anemia. 3. End-stage renal disease. This note was generated with [employer] software. It may contain incorrect words, spelling, and punctuation that were not noted in review of the chart prior to signing ED Disposition - Plan for ED Patient: Disposition: Home or Assisted Living Instructions: ED Hemodialysis Access Bleeding Referrals: Chao Wei MD [STAFF PHYSICIAN] - 7 Days for suture removal
[2020-07-18 15:38] VITALS: RESP 18
== END 2020-07-18 15:39 | disposition home or self-care (01) ==
LOC: ED 14:37
PROVIDERS: Emergency Provider Emergency Medicine; PCP Family Medicine
DX: T82.838A Hemorrhage due to vascular prosthetic devices, implants and grafts, initial encounter (principal); Y83.8 Other surgical procedures as the cause of abnormal reaction of the patient, or of later complication, without mention of misadventure at the time of the procedure; Y92.9 Unspecified place or not applicable; D64.9 Anemia, unspecified; N18.6 End stage renal disease; Z99.2 Dependence on renal dialysis
CPT/HCPCS: 12001; 80048; 85025; 85610; 85730; 99284; A4216

== ENCOUNTER 2020-09-24 10:30 | Outpatient (RCR) | payer MEDICARE, MEDICAID, SELFPAY ==
--- NOTE | 2020-07-28 10:03 | HP.PTEVAL_ITS ---
Patient's Visit Information AMARILYS KAISER Jr. is a 44 year old M referred to Physical Therapy by Dr. Ant Bridges MD with a diagnosis of Left BKA. Date of Evaluation: 07/28/20 Physical Therapist: Giovanna Arias DPT - Visit Plan Frequency: 2x /Week Duration: 4 Weeks Plan: Focus on LE and core strength/stabilization with functional mobility- gait belt. Missing knee extension bilaterally. HEP Give IE: marching, LAQ, HR/TR, hip abd, hip add, glut sets, bolster extension stretch seated - Subjective Patient reports that he has been through a lot since the last time he was here. He had c-diff, blood clots and gangrene which eventually led to the amputation of his left leg. He also had pneomia which they placed him in a medical coma for and then he went to [facility]. He was released 07/19/2020. He went home to a single story home with a finished basement. Mother and daughter can help but he wants to be more self sufficient. He reports that when he left [place] he was able to ambulate 300 feet with a FWW and his temp prosthetic over grass, gravel and blacktop with the therapist. His primary mode of transportation at this time is his wheelchair. He is waiting for a walker and leg rest for his wheelchair. He has a lot of neck pain (plans to see Dr. Swanson) and his left leg does have phantom pain in the ankle. Feels like his ankle needs to pop but it is not there. He normally has pain after wearing the prosthetic for a few hours. Worst: 10 Agg: having the leg on. Best: 10 Eases: medication. Sleep:does not wake him up at night. His current prosthetic normally places it on in the AM and takes it off at night. He is happy with progress but wants to keep moving forwards. PMHx/Meds: listed in chart. - Objective Posture: FH, RS can correct with verbal cues but does not maintain. Gait: unable. Transfers: moderate assist with sit to stand to // bars- slide board transfer with SBA for safety. Standing at // bars: 3 seconds with UE A and moderate A from PT. ROM: hip: WFL, Knee: flexion: WFL, Extn: Left: 10 degrees, Right: 20 degrees, Right Ankle: WFL. Strength: Core: Poor, Hip: Left: flexion/abd: 4/5, Add: 4+/5, extn: 4/5, Right: 4-/5 throughout. Knee: 4/5 in available range. Ankle: 4/5. Wheelchair mobility: good- he was able to propel himself back to treatment room 300 feet without incidence of running into object but demo fatigue. Flex: HS: severe, - Goals Goal 1:: Patient will be I with HEP and progression Goal Time Frame: 4-6 Weeks Goal 2:: Patient will stand for 30 min with UE support without LOB Goal Time Frame: 4-6 Weeks Goal 3:: Patient will ambulate >50 feet LRD and supervision to ease ADL's. Goal Time Frame: 4-6 Weeks Goal 4:: Patient will sit to stand with SBA to walker Goal Time Frame: 4-6 Weeks Goal 5:: Patient will demo full extension of bilateral knees - Rehabilitation Potential Physical Therapy Diagnosis: Patient presents with hypomobility- he has decreased ROM,strength, flex and muscular endurance leading to abnormal gait and decreased participation in ADL's. Rehabilitation Potential: Fair - Anticipated Interventions Patient/Client Instruction: Educate patient on: Benefits of Fitness Program Therapeutic Exercise to Include: Strength training, Endurance training, Balance training, Body mechanics, Postural training, Flexibilty training, Gait and locomotor training, Neuromotor development, Dynamic Lumbar Stabilization, Scapular Strength/Stabilization For the Purpose of:: To improve muscle performance and motor function, To improve ability to perform ADL's Functional Training to Include: ADL Training, Gait training For the Purpose of:: To improve tolerance to ADL's Thank you for the opportunity to evaluate your patient. For Medicare and Medicare HMO plans, please review the plan of care and approve it. It will need to be FAXED BACK to us at [phone] for Medicare purposes. For Medicare only, by signing this I certify the plan of care. Please let me know if there are questions or concerns regarding this plan of care. Physician Signature: Date:
--- NOTE | 2020-08-04 10:04 | HP.OTEVAL_ITS ---
Patient's Visit Information AMARILYS KAISER Jr. is a 44 year old M, referred to Occupational Therapy by Dr. Ant Bridges MD, with a diagnosis of Myasthenia Gravis UB weakness. Date of Evaluation: 08/04/20 Occupational Therapist: Paula Khan, OTR/Rajinder, CHT - Subjective This 44 year old male was seen for OT eval with dx of Myasthenia Gravis without Exacerbation. pt has a 16 year old dtr and his mother moved in with pt until pt is back to being able to perform more home mtg. tasks. pt states weakness limits his mobility and the ability to perform home mtg. tasks. pt lives in a ranch home with basement stairs with one railing. pts laundry is in basement and family is assisting with this at this time. pt states his right shoulder is weak pt states. pt states he was given HEP of UB strengthening from [facility]- pt states he is only doing exercises 2-3 x week- pt demo ind. with w/c mobility, using sliding board for tsf. pt goes to dialysis MWF. pts family supportive. - ADLs Comments: pt has hospital bed, sliding board, rollator, standard walker, ramp into home, pt has shower chair pt has BSC. - Pain right shoulder 7 Pain Intensity Range: 9 - ROM ROM Comments: pt demo with full functional ROM of bilateral UE - Strength Shoulder: right 4/5 left 4/5 Elbow: right 3+/5 left 3+/5 Motor Coach Tour Operator: right 15# left 15# Lateral Pinch: right 4# left 6# Tripod Pinch: right 6# left 6# Strength Comments: pt demo with weakness of bilateral UE - Goals Goal:: Pt will demo an increase in MMT of bilateral UE to 4+/5 or greater to increase pts ind. with ADls and IADLs by d/c. PT will demo an increase in corporate scheduler strength by 20# to increase independent with basic occupations of daily living to return pt to PLOF by D/C. Pt will demo an increase in lateral and tripod pinch by 2# to increase pts independent with opening baggies, containers at PLOF by D/C. - Rehabilitation General Assessment: pt demo with bilateral UE/corporate scheduler weakness. This limits his ind. with ADLs and IADLs . pt would benefit from skilled OT services 1-2x week for 4 weeks to increase pts strength for home mtg. tasks and basic ADLs. Today therapist ed. pt on a PRE isometric exercises as biceps,triceps and shoulder IR/ER asking pt to hold exercise for 8 sec. completing 2 -3 sets of 10 and performing 3-4 x a day. pt demo understanding and agree to POC. Rehabilitation Potential: Good - Anticipated Interventions A/AAROM/PROM, Strengthening - Visit Plan Frequency: 1-2x /Week Duration: 4 Weeks General Plan: therapist ed. pt on isometric biceps/triceps shoulder IR/ER gave handout on exercises TEXT: Thank you for the opportunity to evaluate your patient. For Medicare and Medicare HMO plans, please review the plan of care and approve it. It will need to be FAXED BACK to us at [phone] for Medicare purposes. Please let me know if there are questions or concerns regarding this plan of care. Physician Signature: Date:
--- NOTE | 2020-09-24 12:59 | HP.OTDCSUM ---
It has been my pleasure to treat AMARILYS KAISER Jr. under orders from Dr. Ant Bridges MD, for the diagnosis of Myasthenia Gravis UB weakness for a total of 3 visit(s). Please see the following information for a summary of their discharge status. Objective/Function: pt was unable to attend july apts due to transportation issues- pt reports he is COLTEN with all ADls and IADls. Patient Goals: Regain Strength Goal:: Pt will demo an increase in MMT of bilateral UE to 4+/5 or greater to increase pts ind. with ADls and IADLs by d/c. 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 Pt will demo an increase in lateral and tripod pinch by 2# to increase pts independent with opening baggies, containers at PLOF by D/C. Plan: D/C Discharge Comments: pt was seen on August 04, 2020 for OT eval and was unable to attend therapy services consistently. pt was seen for 2 3 visits and given a HEP for pt to perform. pt has not been doing his exercise. Due to inconsistencies in attendance pt made little gains in strength. Therapist advised pt to perform exercise daily vs every few days. If there are questions or concerns regarding this patient's occupational therapy, please fell free to call me at [phone]. Thank you for the referral of this patient. Sincerely, Paula Khan, OTR/L, CHT
== END 2020-09-24 19:00 | disposition home or self-care (01) ==
LOC: OT 10:30
PROVIDERS: PCP Family Medicine; Referring Provider Family Medicine; Visit Provider Family Medicine
DX: G70.01 Myasthenia gravis with (acute) exacerbation (principal); M25.511 Pain in right shoulder
CPT/HCPCS: 97110; 97162; 97166; 97530

== ENCOUNTER → 2020-09-24 11:05 | Outpatient (CLI) | payer MEDICARE, MEDICAID, SELFPAY ==
--- NOTE | 2020-09-24 11:09 | RAD_ITS ---
STUDY: X-RAY - CERVICAL SPINE REASON FOR EXAM: Male, 44 years old. RIGHT SHOULDER AND NECK PAIN TECHNIQUE: 3 view(s) of the cervical spine were obtained. COMPARISON: 08/26/2019 x-ray, 09/05/2019 MRI FINDINGS: Normal anterior atlantoaxial articulation. Normal odontoid process. Progressing disc space narrowing with sclerosis and irregularity of C5-C6. There is now localized reversal of cervical curvature at this level with at least 5 mm of retrolisthesis of C5 in relation to C6, new since prior x-ray/MRI. Normal remaining vertebral bodies and endplates. Normal remaining disc space heights. The soft tissue structures are unremarkable. RAD/Cerv Spine 2 or 3 Views IMPRESSION: Since August 2019, unfavorable change. Progressing degenerative changes at C5-C6 with new retrolisthesis. Canal stenosis felt to be likely. Additional evaluation with MRI recommended. Given localized appearance and pronounced oil changer the last year, possibility of infection/discitis should be considered (IV contrast with MRI) versus changes related to intervening surgery (none reported). Electronically Signed: Guilherme Mazariegos MD ([place]) at 8:42 EDT , Service support ,
== END ==
PROVIDERS: PCP Family Medicine; Referring Provider Anesthesiology Pain Medicine; Visit Provider Anesthesiology Pain Medicine
DX: M54.2 Cervicalgia (principal); M25.511 Pain in right shoulder
CPT/HCPCS: 72040

== ENCOUNTER 2020-09-29 08:21 | Emergency (ER) | payer MEDICARE, MEDICAID, SELFPAY ==
[2020-09-29 08:28] VITALS: BP 117/84; PULSE 74; RESP 16; TEMP 36.2; O2SAT 100; BMI 13.6
[2020-09-29 08:41] LABS: Bedside Glucose 138 mg/dL (70-110)
[2020-09-29 09:16] LABS: Bedside Glucose 110 mg/dL (70-110)
--- NOTE | 2020-09-29 09:16 | EDS_ITS ---
HPI History of Present Illness Chief Complaint: Hypoglycemia Informant: patient and EMS Narrative Narrative: Patient is a 44-year-old male with history of type 1 diabetes mellitus with an insulin pump and continuous glucose detector as well as end- stage renal disease on hemodialysis presenting after an unresponsive episode. Patient was found by his mother and sister, whom he lives with. Blood sugar low last night low at 41. Son checked it and gave him OJ and Sandwhich sugar then 97. Turned insulin pump off. This AM unresponsive and breathing heavily. Wouldn't wake up. Blood sugar this morning was 41. D10 given from EMS. Started taking new pain patch recently. Has seemed more sleepy lately and eating less. [facility] Medical History (Updated 09/29/20 @ 14:[address] Janneth Devries, ) Cellulitis of right leg Chronic renal failure, stage 4 (severe) Diabetes type I Diabetic nephropathy, type I Diabetic peripheral neuropathy End stage chronic kidney disease ESRD (end stage renal disease) Foot ulcer, left Gastroparesis due to DM HTN (hypertension) Hypoglycemia Hypoxia IBS (irritable bowel syndrome) Left leg and foot cellulitis Myasthenia gravis PAD (peripheral artery disease) Peripheral vascular disease Pneumonia Respiratory failure Home Medications Calcium Acetate 1 cap PO TIDCM 02/14/20 [History Last Taken Unknown] amitriptyline 2 tab PO QHS 02/14/20 [History Last Taken Unknown] aspirin 81 mg PO DAILY@0800 02/14/20 [History Last Taken Unknown] cholestyramine (with sugar) 4 gm PO BID 02/14/20 [History Last Taken Unknown] clopidogrel 75 mg PO DAILY 02/14/20 [History Last Taken Unknown] levothyroxine 50 mcg PO DAILY 02/14/20 [History Last Taken Unknown] montelukast 10 mg PO QHS 02/14/20 [History Last Taken Unknown] venlafaxine 150 mg PO DAILY 02/14/20 [History Last Taken Unknown] B complex-vitamin C-folic acid 0.8 mg PO DAILY 02/22/20 [History Last Taken Unknown] Triphrocaps 1 mg PO DAILY 02/22/20 [History Last Taken Unknown] bupropion HCl 150 mg PO BID 02/22/20 [History Last Taken Unknown] pantoprazole 40 mg PO DAILY 02/22/20 [History Last Taken Unknown] pyridostigmine bromide 60 mg PO DAILY 02/22/20 [History Last Taken Unknown] amlodipine 10 mg PO DAILY #0 tab 02/28/20 [Rx Last Taken Unknown] insulin glargine 8 units SC BREAKFAST pen 02/28/20 [Rx Last Taken Unknown] insulin lispro See Protocol SC ACHS insuln.pen 02/28/20 [Rx Last Taken Unknown] melatonin 3 mg PO QHS PRN tab 02/28/20 [Rx Last Taken Unknown] menthol-zinc oxide 1 applic TOPICAL TID tube 02/28/20 [Rx Last Taken Unknown] metoprolol tartrate 100 mg PO BID tab 02/28/20 [Rx Last Taken Unknown] nystatin 500,000 unit PO 4X/DAY udc 02/28/20 [Rx Last Taken Unknown] albuterol sulfate 90 mcg/actuation aerosol inhaler 2 puff INHALATION Q4H PRN #18 gm 07/14/20 [Rx Last Taken Unknown] fluticasone furoate 100 mcg-vilanterol 25 mcg/dose inhalation powder 1 inh INHALATION DAILY #60 each 07/14/20 [Rx Last Taken Unknown] Allergy/AdvReac Type Severity Reaction Status Date / Time levofloxacin [From Levaquin] Allergy Pain in Verified 09/29/20 08:32 joints lisinopril Allergy Angioedema Verified 09/29/20 08:32 losartan Allergy Angioedema Verified 09/29/20 08:32 metoclopramide HCl Allergy Hives Verified 09/29/20 08:32 [From Reglan] Family History (Reviewed 07/07/20 @ 14:10 by Margaux Boone GENERAL PRODUCTION MANAGER, GENERAL PRODUCTION MANAGER-C) Father Cancer Hypertension Mother Thyroid disorder Surgical History S/P thymectomy Status post creation of arteriovenous fistula (~04/2019) Status post laparoscopic cholecystectomy Social History (Updated 07/07/20 @ 15:05 by Margaux Boone GENERAL PRODUCTION MANAGER, GENERAL PRODUCTION MANAGER-C) Smoking Status: Current every day smoker tobacco type: cigarettes alcohol intake: never substance use type: marijuana ROS ROS ED Constitutional Constitutional ED: Denies chills or fever(s) Eyes Eyes: Denies blurry vision or change in vision ENT ENT ED: Denies sore throat Cardiovascular Cardiovascular: Denies chest pain or palpitations Respiratory/Chest Respiratory/Chest: Denies cough or dyspnea Gastrointestinal Gastrointestinal: Reports constipation; Denies abdominal pain Musculoskeletal Musculoskeletal: Denies myalgias Integumentary Denies rash Neurologic Neurologic: Reports paresthesias; Denies headache(s) EXAM Physical Exam Const Vital Signs: 09/29/20 08:28 09/29/20 12:35 09/29/20 14:24 Temperature 97.2 F L Pulse Rate 74 64 70 Respiratory Rate 16 15 12 Respiratory Effort Normal Non-Labored Respiratory Pattern Normal Blood Pressure 117/84 H 120/79 133/75 H Blood Pressure Mean 95 92 Pulse Ox 100 95 98 Oxygen Delivery Method Nasal Cannula Nasal Cannula Oxygen Flow Rate (L/min) 2 2 Positive cachectic General Appearance ED: cachectic and NAD Nutritional Appearance: cachectic HEENT Reports moist mucous membranes Eyes PERRL and EOMs intact bilaterally Neck supple and no JVD Chest Wall inspection of chest normal Resp normal respiratory effort and clear to auscultation bilaterally Cardio regular rate, regular rhythm and no murmurs Rate: other Other Details: AV fistula in the left upper extremity GI non-tender and non-distended Palpation: soft Extremity General Extremety ED: Negative for edema General Extremity: Negative for edema Neuro oriented x3 and CN's II-XII intact bilaterally Neuro Narrative: Patient is generally weak but does not appear to have any focal deficits Sensorium / Orientation: alert Psych mental status grossly normal Skin no rashes or lesions noted Skin Narrative: Insulin pump and continuous glucose monitor in place MDM MDM MDM Narrative Medical decision making narrative: Patient is evaluated for hypoglycemia. He previously received D10 in route. His blood sugar remains normal in the emergency room. He is able to eat and drink in the ER. He is monitored for couple hours does not have any further hypoglycemia. He does seem generally weak and sleepy in the ER. Given that he does have a history of pneumonia and respiratory failure I did obtain an ABG and a chest x-ray. ABG has a normal pH and is consistent with a chronic hypercapnia. Chest x-ray reviewed by myself as well as radiology is consistent with atelectasis and marked improvement from prior chest x-ray. Is a small pleural effusion but I do not think that is his issue at this time. He is on any focal neurologic deficits I do not suspect an intracranial process causing his presentation. His BMP does show marked electrolyte abnormalities what is consistent with end-stage renal disease. Patient mother is at the bedside who states he has been a little more sleepy lately but attributes that to his new pain patch. I suspect patient might have a component of polypharmacy causing his decreased appetite and activity. Patient feels well and is comfortable going home. He will be discharged home in the care of his mother. I did touch base with the nurse practitioner sees him for endocrinology. She will follow-up outpatient with him. Patient is instructed to decrease his insulin boluses and to turn off his pump if his blood sugars are dropping below 150 for the next 24 hours. He verbalizes agreement understanding this plan. Patient discharged home in stable and improved condition. Lab Data Labs: Laboratory Results - last 24 hr 09/29/20 09/29/20 09/29/20 08:35 09:07 09:40 WBC 9.5 RBC 4.75 Hgb 13.7 Hct 43.8 MCV 92.2 MCH 28.8 MCHC 31.3 L RDW Std Deviation 57.3 H RDW Coeff of Fidel 16.9 H Plt Count 180 MPV 12.3 H Immature Gran % (Auto) 0.400 Neut % (Auto) 86.0 H Lymph % (Auto) 7.2 L [place] % (Auto) 6.1 Eos % (Auto) 0.2 Baso % (Auto) 0.1 Absolute Neuts (auto) 8.1 H Absolute Lymphs (auto) 0.68 L Nucleated RBC % 0 Sodium Potassium Chloride Carbon Dioxide Anion Gap BUN Creatinine Estim Creat Clear Calc Est GFR (MDRD) Af Amer Est GFR (MDRD) Non-Af BUN/Creatinine Ratio Glucose Calcium POC Glucose 138 H 110 09/29/20 09/29/20 09/29/20 09:40 10:00 10:39 WBC RBC Hgb Hct MCV MCH MCHC RDW Std Deviation RDW Coeff of Fidel Plt Count MPV Immature Gran % (Auto) Neut % (Auto) Lymph % (Auto) [place] % (Auto) Eos % (Auto) Baso % (Auto) Absolute Neuts (auto) Absolute Lymphs (auto) Nucleated RBC % Sodium Cancelled Cancelled 129 L Potassium Cancelled Cancelled 3.9 Chloride Cancelled Cancelled 96 L Carbon Dioxide Cancelled Cancelled 27.0 Anion Gap Cancelled Cancelled 6 BUN Cancelled Cancelled 19 H Creatinine Cancelled Cancelled 2.68 H Estim Creat Clear Calc Cancelled Cancelled 21.27 Est GFR (MDRD) Af Amer Cancelled Cancelled 33 L Est GFR (MDRD) Non-Af Cancelled Cancelled 27 L BUN/Creatinine Ratio Cancelled Cancelled 7.1 L Glucose Cancelled Cancelled 107 H Calcium Cancelled Cancelled 7.6 L POC Glucose 09/29/20 09/29/20 09/29/20 10:51 12:31 14:16 WBC RBC Hgb Hct MCV MCH MCHC RDW Std Deviation RDW Coeff of Fidel Plt Count MPV Immature Gran % (Auto) Neut % (Auto) Lymph % (Auto) [place] % (Auto) Eos % (Auto) Baso % (Auto) Absolute Neuts (auto) Absolute Lymphs (auto) Nucleated RBC % Sodium Potassium Chloride Carbon Dioxide Anion Gap BUN Creatinine Estim Creat Clear Calc Est GFR (MDRD) Af Amer Est GFR (MDRD) Non-Af BUN/Creatinine Ratio Glucose Calcium POC Glucose 94 167 H 112 H ABG Data ABG results: ABG 09/29/20 11:08 Specimen Type ART Sample Site R Radial pH 7.31 L Bicarbonate Actual 25.7 Total CO2 27 Base Excess -1 O2 Saturation 94 L ABG pCO2 51.0 H ABG pO2 77 Marco A Test Positive Radiography Chest X-Ray - ED: 1 View, Read by ED Physician, Read by Radiologist and No Acute Disease Diagnostic Testing: Radiology Impression Chest X-Ray 09/29/20 10:00 IMPRESSION: Small bilateral pleural effusions with atelectasis and/or infiltrate at the left lung base with mild increased markings at the right lung base although there has been improvement as compared to prior study. Electronically Signed: Raciel Garcia MD at 10:28 EDT , Service support , Discharge Plan Triage Chief Complaint: Hypoglycemia ED Provider: Janneth Devries Dx/Rx/DC Orders Clinical Impression: Hypoglycemia Instructions: Hypoglycemia (Low Blood Sugar) Prescriptions: No Action albuterol sulfate [Ventolin HFA] 90 mcg/actuation HFA aerosol inhaler 2 puff INHALATION Q4H PRN (Reason: shortness of breath or wheezing) Qty: 18 RF: 6 Breo Ellipta 100-25 mcg/dose blister with device 1 inh INHALATION DAILY Qty: 60 RF: 6 venlafaxine 150 MG capsule 150 mg PO DAILY RF: 0 clopidogrel 75 MG tablet 75 mg PO DAILY RF: 0 amitriptyline 10 MG tablet 2 tab PO QHS RF: 0 levothyroxine 50 MCG tablet 50 mcg PO DAILY RF: 0 aspirin 81 MG tablet,chewable 81 mg PO DAILY@0800 RF: 0 montelukast 10 MG tablet 10 mg PO QHS RF: 0 cholestyramine (with sugar) 4 GM powder in packet 4 gm PO BID RF: 0 Calcium Acetate 667 MG capsule 1 cap PO TIDCM RF: 0 pantoprazole 40 MG tablet 40 mg PO DAILY RF: 0 pyridostigmine bromide 60 MG tablet 60 mg PO DAILY RF: 0 B complex-vitamin C-folic acid 0.8 MG tablet 0.8 mg PO DAILY RF: 0 bupropion HCl 150 MG tablet extended release 24 hr 150 mg PO BID RF: 0 Triphrocaps 1 mg PO DAILY RF: 0 nystatin 500,000 UNIT/5 ML suspension 500,000 unit PO 4X/DAY RF: 0 metoprolol tartrate 100 MG tablet 100 mg PO BID RF: 0 melatonin 3 MG tablet 3 mg PO QHS PRN (Reason: SLEEP) RF: 0 amlodipine 10 MG tablet 10 mg PO DAILY Qty: 0 RF: 0 insulin lispro 100 UNIT/ML insulin pen See Protocol unit SC ACHS RF: 0 insulin glargine 100 UNITS/ML insulin pen 8 units SC BREAKFAST RF: 0 menthol-zinc oxide 1 APPLIC ointment 1 applic TOPICAL TID RF: 0 Primary Care Provider: Jose Graham Referrals: Jose Graham MD [Primary Care Provider] - Activity Restrictions/Additional Instructions: Call your long chain dyeing machine operator office (appointment desk) or contact through [facility] for close follow up. Keep insulin pump off till tomorrow or till blood sugar is over 150 consistently. Disposition Disposition: Home, Self Care Discharge Date/Time: 09/29/20 14:25
[2020-09-29 09:55] LABS: Absolute Lymphocyte Count 0.68 X10^3/uL (0.83-4.51); Absolute Neutrophil Count 8.1 X10^3/uL (2.0-7.7); Basophil# 0.01 X10^3/uL; Basophil% 0.1 % (0-1); Eosinophil# 0.02 X10^3/uL; Eosinophils% 0.2 % (0-5); Hematocrit 43.8 % (40-54); Hemoglobin 13.7 g/dL (13.0-16.5); Lymphocyte # 0.68 X10^3/ul (0.83-4.51); Lymphocyte % 7.2 % (19-41); Mean Corp Hgb Conc 31.3 g/dL (32-36); Mean Corpuscular Hgb 28.8 pg (27.0-32.0); Mean Corpuscular Volume 92.2 fL (80-94); Mean Platelet Vol. 12.3 fl (6.2-12.0); Monocyte# 0.58 X10^3/uL; Monocyte% 6.1 % (0-10); NRBC Flagged by Analyzer 0 % (0-5); Neutrophil # 8.14 X10^3/uL (2.7-7.7); Platelet Count 180 K/mm3 (150-450); RBC Distribution Width CV 16.9 % (11.6-14.6); RBC Distribution Width SD 57.3 fl (35.1-43.9); Red Blood Count 4.75 M/mm3 (4.6-6.2); White Blood Count 9.5 K/mm3 (4.4-11.0)
--- NOTE | 2020-09-29 10:00 | RAD_ITS ---
STUDY: X-RAY CHEST REASON FOR EXAM: Male, 44 years old. Weakness TECHNIQUE: Single AP portable view of the chest. COMPARISON: Comparison is made with prior study dated 02/27/2020. FINDINGS: Blunting of both cost phrenic angle suggestive of small bilateral effusions left greater than right. Focal left basilar density suggestive of either infiltration and/or atelectasis. Mild increased markings at the right lung base although there has been a marked improvement as compared to prior study. Sternal cerclage wires are present from a prior sternotomy. Normal mediastinum and nathaniel. Normal visualized pulmonary arteries. Normal visualized aortic arch and descending thoracic aorta. Normal visualized thoracic spine. Normal visualized ribs, clavicles, and shoulders. There is no demonstrated abnormality of the visualized soft tissue structures of the upper abdomen. RAD/Chest 1 View (Portable) IMPRESSION: Small bilateral pleural effusions with atelectasis and/or infiltrate at the left lung base with mild increased markings at the right lung base although there has been improvement as compared to prior study. Electronically Signed: Raciel Garcia MD at 10:28 EDT , Service support ,
[2020-09-29 10:55] LABS: Bedside Glucose 94 mg/dL (70-110)
[2020-09-29 11:02] LABS: Anion Gap 6 (5-15); BUN 19 mg/dL (7-18); BUN/Creat Ratio 7.1 RATIO (10-20); Calcium,Total 7.6 mg/dL (8.5-10.1); Chloride 96 mmol/L (98-107); Creatinine, Serum 2.68 mg/dL (0.70-1.30); EST Glomerular Filtration Rate 27 mL/min (>60); Est Glom Filt Rate - Afr Amer 33 mL/min (>60); Estimated Creatinine Clearance 21.27 ml/min; Glucose 107 mg/dL (74-106); Potassium 3.9 mmol/L (3.5-5.1); Sodium Level 129 mmol/L (136-145)
[2020-09-29 11:15] LABS: Allen Test Positive; Base Excess -1 mmol/L (-2 to +2); Bicarbonate 25.7 mmol/L (22-26); Blood Gas Specimen Type ART; PO2 77 mmHG (75-100); SITE R Radial; SO2 94 % (95-99); Total Carbon Dioxide 27 mmol/L; pH 7.31 (7.35-7.45)
[2020-09-29 12:35] VITALS: BP 120/79; PULSE 64; RESP 15; O2SAT 95
[2020-09-29 12:35] LABS: Bedside Glucose 167 mg/dL (70-110)
--- NOTE | 2020-09-29 12:59 | ED.RN ---
SPOKE WITH PT MOM, MOM IS ON HER WAY.
--- NOTE | 2020-09-29 13:40 | NURSING ---
LEFT MESSAGE FOR CLOTILDE DÍAZ NP, AT [facility]
[2020-09-29 14:20] LABS: Bedside Glucose 112 mg/dL (70-110)
[2020-09-29 14:24] VITALS: BP 133/75; PULSE 70; RESP 12; O2SAT 98
== END 2020-09-29 14:25 | disposition home or self-care (01) ==
PROVIDERS: Emergency Provider Emergency Medicine; PCP Family Medicine
DX: E10.649 Type 1 diabetes mellitus with hypoglycemia without coma (principal); J90 Pleural effusion, not elsewhere classified; J98.11 Atelectasis; Z87.01 Personal history of pneumonia (recurrent); F17.210 Nicotine dependence, cigarettes, uncomplicated; E10.22 Type 1 diabetes mellitus with diabetic chronic kidney disease; E10.42 Type 1 diabetes mellitus with diabetic polyneuropathy; E10.43 Type 1 diabetes mellitus with diabetic autonomic (poly)neuropathy; E10.51 Type 1 diabetes mellitus with diabetic peripheral angiopathy without gangrene; E10.621 Type 1 diabetes mellitus with foot ulcer; G70.00 Myasthenia gravis without (acute) exacerbation; I12.0 Hypertensive chronic kidney disease with stage 5 chronic kidney disease or end stage renal disease; K58.9 Irritable bowel syndrome, unspecified; N18.6 End stage renal disease; K31.84 Gastroparesis; Z79.4 Long term (current) use of insulin; Z79.82 Long term (current) use of aspirin; Z79.899 Other long term (current) drug therapy; Z96.41 Presence of insulin pump (external) (internal); Z99.2 Dependence on renal dialysis
CPT/HCPCS: 36415; 36600; 71045; 80048; 82803; 82962; 85025; 99285; A4216

== ENCOUNTER → 2020-10-06 09:19 | Outpatient (CLI) | payer MEDICARE, MEDICAID, SELFPAY ==
[2020-07-07 13:56] VITALS: BMI 17.7
[2020-09-29 08:28] VITALS: BMI 13.6
--- NOTE | 2020-10-07 09:48 | PFT ---
INTRODUCTION: The patient is a 44-year-old male that presents for pulmonary function studies secondary to a diagnosis of dyspnea on exertion. Respiratory therapy reports good patient effort. Bronchodilators were used during testing. INTERPRETATION: Forced expiration spirometry demonstrates no evidence of a large airways obstructive ventilatory defect. There was no significant response to aerosolized bronchodilators. Spirograms are of good quality and plateau gradually indicating slow emptying of the lungs. Body plethysmography was performed and revealed a decreased TLC to 4.04 L, 68% of predicted, indicative of a moderate restrictive ventilatory impairment. Diffusing capacity by single breath CO is significantly reduced at 32% of predicted. IMPRESSION: Moderate restrictive ventilatory impairment with disproportionate severe reduction in diffusing capacity.
== END ==
PROVIDERS: PCP Family Medicine; Referring Provider Nurse Practitioner Acute Care; Visit Provider Nurse Practitioner Acute Care
DX: R06.00 Dyspnea, unspecified (principal)
CPT/HCPCS: 94060; 94726; 94729

== ENCOUNTER 2020-10-11 19:55 | Emergency (ER) | payer MEDICARE, MEDICAID, SELFPAY ==
[2020-10-11 19:57] VITALS: BP 100/83; PULSE 71; RESP 16; TEMP 35.8; O2SAT 96; BMI 13.5
[2020-10-11 20:01] VITALS: BP 100/83; PULSE 59; RESP 10; RESP 11; TEMP 35.8; O2SAT 98; O2SAT 99
--- NOTE | 2020-10-11 20:33 | EDS_ITS ---
HPI History of Present Illness Chief Complaint: Alt LOC Narrative Narrative: Patient presenting via EMS with altered mental status and cannot speak. His his right foot and distal tibia are erythematous. He has a left BKA. His vital signs are stable. [facility] Medical History Cellulitis of right leg Chronic renal failure, stage 4 (severe) Diabetes type I Diabetic nephropathy, type I Diabetic peripheral neuropathy End stage chronic kidney disease ESRD (end stage renal disease) Foot ulcer, left Gastroparesis due to DM HTN (hypertension) Hypoglycemia Hypoxia IBS (irritable bowel syndrome) Left leg and foot cellulitis Myasthenia gravis PAD (peripheral artery disease) Peripheral vascular disease Pneumonia Respiratory failure Home Medications Calcium Acetate 1 cap PO TIDCM 02/14/20 [History Last Taken Unknown] amitriptyline 2 tab PO QHS 02/14/20 [History Last Taken Unknown] aspirin 81 mg PO DAILY@0800 02/14/20 [History Last Taken Unknown] cholestyramine (with sugar) 4 gm PO BID 02/14/20 [History Last Taken Unknown] clopidogrel 75 mg PO DAILY 02/14/20 [History Last Taken Unknown] levothyroxine 50 mcg PO DAILY 02/14/20 [History Last Taken Unknown] montelukast 10 mg PO QHS 02/14/20 [History Last Taken Unknown] venlafaxine 150 mg PO DAILY 02/14/20 [History Last Taken Unknown] B complex-vitamin C-folic acid 0.8 mg PO DAILY 02/22/20 [History Last Taken Unknown] Triphrocaps 1 mg PO DAILY 02/22/20 [History Last Taken Unknown] bupropion HCl 150 mg PO BID 02/22/20 [History Last Taken Unknown] pantoprazole 40 mg PO DAILY 02/22/20 [History Last Taken Unknown] pyridostigmine bromide 60 mg PO DAILY 02/22/20 [History Last Taken Unknown] amlodipine 10 mg PO DAILY #0 tab 02/28/20 [Rx Last Taken Unknown] insulin glargine 8 units SC BREAKFAST pen 02/28/20 [Rx Last Taken Unknown] insulin lispro See Protocol SC ACHS insuln.pen 02/28/20 [Rx Last Taken Unknown] melatonin 3 mg PO QHS PRN tab 02/28/20 [Rx Last Taken Unknown] menthol-zinc oxide 1 applic TOPICAL TID tube 02/28/20 [Rx Last Taken Unknown] metoprolol tartrate 100 mg PO BID tab 02/28/20 [Rx Last Taken Unknown] nystatin 500,000 unit PO 4X/DAY udc 02/28/20 [Rx Last Taken Unknown] albuterol sulfate 90 mcg/actuation aerosol inhaler 2 puff INHALATION Q4H PRN #18 gm 07/14/20 [Rx Last Taken Unknown] fluticasone furoate 100 mcg-vilanterol 25 mcg/dose inhalation powder 1 inh INHALATION DAILY #60 each 07/14/20 [Rx Last Taken Unknown] Allergy/AdvReac Type Severity Reaction Status Date / Time levofloxacin [From Levaquin] Allergy Pain in Verified 10/11/20 19:56 joints lisinopril Allergy Angioedema Verified 10/11/20 19:56 losartan Allergy Angioedema Verified 10/11/20 19:56 metoclopramide HCl Allergy Hives Verified 10/11/20 19:56 [From Reglan] Family History Father Cancer Hypertension Mother Thyroid disorder Surgical History S/P thymectomy Status post creation of arteriovenous fistula (~04/2019) Status post laparoscopic cholecystectomy Social History Smoking Status: Former smoker alcohol intake: never substance use type: marijuana ROS ROS ED Review of Systems ROS Unobtainable: due to encephalopathy, due to mental condition, due to mental status and other EXAM Physical Exam Const Vital Signs: 10/11/20 19:57 10/11/20 20:01 10/11/20 20:34 Temperature 96.5 F L 96.5 F L Temperature Source Temporal Temporal Pulse Rate 71 59 L Respiratory Rate 16 10 L 17 Blood Pressure 100/83 H 100/83 H Blood Pressure Mean 88 88 Pulse Ox 96 99 99 Oxygen Delivery Method Room Air Room Air 10/11/20 21:01 Temperature 97.6 F L Temperature Source Temporal Pulse Rate 69 Respiratory Rate 16 Blood Pressure 106/84 H Blood Pressure Mean 91 Pulse Ox 99 Oxygen Delivery Method Room Air Positive cachectic and unkempt General Appearance ED: unkempt and cachectic Nutritional Appearance: cachectic HEENT Reports dry mucous membranes Negative for trauma Mouth ED: Yes dry mucous membranes Mouth: dry mucous membranes Eyes PERRL and EOMs intact bilaterally Resp normal respiratory effort and clear to auscultation bilaterally Cardio regular rate; Negative for regular rhythm, S1 normal heart sound, S2 normal heart sound or no murmurs Palpation: Negative for palpable S3 or palpable S4 Rate: Negative for bradycardia, tachycardic or other Rhythm: Negative for abnormal rhythm GI GI Narrative: No apparent abdominal tenderness Extremity Extremity Narrative: Right lower extremity has dopplerable posterior tibial artery. There is no pulse in the dorsalis pedis. Right foot is cold. There is a left-sided BKA. Neuro Neuro Narrative: Opens eyes looks around does not speak. Psych Appearance: unkempt and other Skin Skin Narrative: Right distal tibia and foot are cold and erythematous. MDM MDM MDM Narrative Medical decision making narrative: Patient presenting with altered mental status. Initially was not talking to me. I did wake him up and he stated that he was just tired. His vital signs are stable and he is afebrile. He has no complaints specifically except for fatigue. I did obtain lab work and he has no leukocytosis. His hemoglobin had are stable. Renal function is as expected for end-stage renal disease on dialysis Monday and Monday per his mother Lisset. Glucose is 213. I spoke with his mother who stated that he had sugars between 102 100 today. She called her son's wire spring relay adjuster and told him about the red foot and he has had concern for cellulitis. When I asked her about the redness of the right foot and distal tibia she stated it had been there for weeks. She has a follow-up this next week for evaluation from vascular surgery to do a vascular stent. This does sound chronic. He does have a dopplerable pulse. I doubt this is infectious in nature given the timeframe. Given his initial altered mental status I did obtain CT imaging of the brain which is negative for acute findings. Chest x-ray shows bilateral pleural effusions are chronic. Patient's mother stated she only sent him in I have concerned that he might have an infection given what her son's wire spring relay adjuster said. She did state that he was having a less p.o. intake recently and has been trying to get Ensure into him. She stated that she was trying to give him cake earlier in the day at a green party, and I counseled her if she had concern for high blood sugars that she should not give him cake. She acknowledged understanding of this. Impression: 1. Hyperglycemia 2. Altered mental status resolved 3. Ischemic limb chronic 4. History of end-stage renal disease on dialysis. Lab Data Attestation: I reviewed the patient's lab results. Labs: Laboratory Results - last 24 hr 10/11/20 10/11/20 10/11/20 20:12 20:12 20:12 WBC 7.9 RBC 4.75 Hgb 13.5 Hct 43.5 MCV 91.6 MCH 28.4 MCHC 31.0 L RDW Std Deviation 56.9 H RDW Coeff of Fidel 16.7 H Plt Count 184 MPV 12.0 Immature Gran % (Auto) 2.200 H Neut % (Auto) 83.2 H Lymph % (Auto) 6.7 L [place] % (Auto) 6.9 Eos % (Auto) 0.5 Baso % (Auto) 0.5 Absolute Neuts (auto) 6.6 Absolute Lymphs (auto) 0.53 L Nucleated RBC % 0 Differential Comment SCANNED Platelet Estimate ADEQUATE Anisocytosis 1+ Sodium 135 L Potassium 4.0 Chloride 101 Carbon Dioxide 26.0 Anion Gap 8 BUN 38 H Creatinine 2.84 H Estim Creat Clear Calc 17.70 Est GFR (MDRD) Af Amer 31 L Est GFR (MDRD) Non-Af 26 L BUN/Creatinine Ratio 13.4 Glucose 213 H Lactic Acid 0.8 Calcium 8.2 L Radiography Diagnostic Testing: Radiology Impression Brain CT 10/11/20 20:34 IMPRESSION: Normal unenhanced CT scan of the brain. Electronically Signed: Ady Kaur MD at 21:25 EDT , Service support , Chest X-Ray 10/11/20 20:53 IMPRESSION: Small bilateral pleural effusions unchanged Electronically Signed: Ady Kaur MD at 21:31 EDT , Service support , Discharge Plan Triage Chief Complaint: Alt LOC ED Provider: Gurpreet Valle Dx/Rx/DC Orders Instructions: Critical Limb Ischemia, ED Pleural Effusion, ED Weakness (Uncertain Cause) Prescriptions: No Action albuterol sulfate [Ventolin HFA] 90 mcg/actuation HFA aerosol inhaler 2 puff INHALATION Q4H PRN (Reason: shortness of breath or wheezing) Qty: 18 RF: 6 Breo Ellipta 100-25 mcg/dose blister with device 1 inh INHALATION DAILY Qty: 60 RF: 6 venlafaxine 150 MG capsule 150 mg PO DAILY RF: 0 clopidogrel 75 MG tablet 75 mg PO DAILY RF: 0 amitriptyline 10 MG tablet 2 tab PO QHS RF: 0 levothyroxine 50 MCG tablet 50 mcg PO DAILY RF: 0 aspirin 81 MG tablet,chewable 81 mg PO DAILY@0800 RF: 0 montelukast 10 MG tablet 10 mg PO QHS RF: 0 cholestyramine (with sugar) 4 GM powder in packet 4 gm PO BID RF: 0 Calcium Acetate 667 MG capsule 1 cap PO TIDCM RF: 0 pantoprazole 40 MG tablet 40 mg PO DAILY RF: 0 pyridostigmine bromide 60 MG tablet 60 mg PO DAILY RF: 0 B complex-vitamin C-folic acid 0.8 MG tablet 0.8 mg PO DAILY RF: 0 bupropion HCl 150 MG tablet extended release 24 hr 150 mg PO BID RF: 0 Triphrocaps 1 mg PO DAILY RF: 0 nystatin 500,000 UNIT/5 ML suspension 500,000 unit PO 4X/DAY RF: 0 metoprolol tartrate 100 MG tablet 100 mg PO BID RF: 0 melatonin 3 MG tablet 3 mg PO QHS PRN (Reason: SLEEP) RF: 0 amlodipine 10 MG tablet 10 mg PO DAILY Qty: 0 RF: 0 insulin lispro 100 UNIT/ML insulin pen See Protocol unit SC ACHS RF: 0 insulin glargine 100 UNITS/ML insulin pen 8 units SC BREAKFAST RF: 0 menthol-zinc oxide 1 APPLIC ointment 1 applic TOPICAL TID RF: 0 Primary Care Provider: Jose Graham Referrals: Jose Graham MD [Primary Care Provider] - Disposition Disposition: Home, Self Care
[2020-10-11 20:34] VITALS: RESP 17; O2SAT 100; O2SAT 99
--- NOTE | 2020-10-11 20:34 | CT_ITS ---
STUDY: CT BRAIN WITHOUT CONTRAST REASON FOR EXAM: Male, 44 years old. altered mental status RADIATION DOSAGE (If Supplied By Facility): CTDIvol = ( 44.99 ) mGy, DLP = ( 812.98 ) mGycm TECHNIQUE: Transaxial CT imaging of the brain was performed without administration of intravenous contrast material. Individualized dose optimization techniques were used for this CT. COMPARISON: No relevant priors. FINDINGS: Normal soft tissue structures. Normal calvarium. Normal size ventricles and extra-axial spaces for the patient''s age. Normal white matter tracts of the cerebral hemispheres. Normal basal ganglia and thalami. Normal brainstem. Normal cerebellum. There is no intracranial hemorrhage. There are no findings of an acute ischemic infarction. Normal visualized paranasal sinuses. CT/Brain/Head without Contrast IMPRESSION: Normal unenhanced CT scan of the brain. Electronically Signed: Ady Kaur MD at 21:25 EDT , Service support ,
[2020-10-11 20:37] LABS: Absolute Lymphocyte Count 0.53 X10^3/uL (0.83-4.51); Absolute Neutrophil Count 6.6 X10^3/uL (2.0-7.7); Basophil# 0.04 X10^3/uL; Basophil% 0.5 % (0-1); Eosinophil# 0.04 X10^3/uL; Eosinophils% 0.5 % (0-5); Hematocrit 43.5 % (40-54); Hemoglobin 13.5 g/dL (13.0-16.5); Lymphocyte # 0.53 X10^3/ul (0.83-4.51); Lymphocyte % 6.7 % (19-41); Mean Corpuscular Hgb 28.4 pg (27.0-32.0); Mean Corpuscular Volume 91.6 fL (80-94); Monocyte# 0.54 X10^3/uL; Monocyte% 6.9 % (0-10); NRBC Flagged by Analyzer 0 % (0-5); Neutrophil # 6.56 X10^3/uL (2.7-7.7); Neutrophil % 83.2 % (47-70); POSITIVE DIFFERENTIAL YES; Platelet Count 184 K/mm3 (150-450); RBC Distribution Width CV 16.7 % (11.6-14.6); RBC Distribution Width SD 56.9 fl (35.1-43.9); Red Blood Count 4.75 M/mm3 (4.6-6.2); White Blood Count 7.9 K/mm3 (4.4-11.0)
--- NOTE | 2020-10-11 20:37 | EKG12_ITS ---
Test Reason : DYSRHYTHMIA Blood Pressure : / mmHG Vent. Rate : 058 BPM Atrial Rate : 058 BPM P-R Int : 168 ms QRS Dur : 108 ms QT Int : 454 ms P-R-T Axes : 076 070 080 degrees QTc Int : 445 ms Sinus bradycardia Otherwise normal ECG Confirmed by CARMEN PACHECO, MICHELLE ([id number]), television news video editor BART GATES ([id number]) on 10/12/2020 11:51:01 AM Referred By: KLAUDIA Confirmed By:MICHELLE MORALES MD
[2020-10-11 20:52] LABS: Anion Gap 8 (5-15); BUN 38 mg/dL (7-18); BUN/Creat Ratio 13.4 RATIO (10-20); Calcium,Total 8.2 mg/dL (8.5-10.1); Chloride 101 mmol/L (98-107); Creatinine, Serum 2.84 mg/dL (0.70-1.30); EST Glomerular Filtration Rate 26 mL/min (>60); Est Glom Filt Rate - Afr Amer 31 mL/min (>60); Glucose 213 mg/dL (74-106); Sodium Level 135 mmol/L (136-145)
--- NOTE | 2020-10-11 20:53 | RAD_ITS ---
STUDY: X-RAY CHEST REASON FOR EXAM: Male, 44 years old. altered mental status TECHNIQUE: Single frontal view of the chest. COMPARISON: 09/29/2020 FINDINGS: Sternotomy wires. The lungs are clear and expanded. Small bilateral pleural effusions. Normal size heart. Normal mediastinum and nathaniel. Normal visualized pulmonary arteries. Normal visualized aortic arch and descending thoracic aorta. Normal visualized thoracic spine. Normal visualized ribs, clavicles, and shoulders. There is no demonstrated abnormality of the visualized soft tissue structures of the upper abdomen. RAD/Chest 1 View (Portable) IMPRESSION: Small bilateral pleural effusions unchanged Electronically Signed: Ady Kaur MD at 21:31 EDT , Service support ,
[2020-10-11 20:54] LABS: Differential Indicated SCAN CRITERIA MET
[2020-10-11 21:01] VITALS: BP 106/84; PULSE 69; RESP 16; TEMP 36.4; O2SAT 99
[2020-10-11 21:06] LABS: Lactic Acid 0.8 mmol/L (0.4-1.9)
[2020-10-11 21:20] LABS: Anisocytosis 1+; Differential Comment SCANNED; Platelet Estimate ADEQUATE (ADEQ)
== END 2020-10-12 03:05 | disposition home or self-care (01) ==
PROVIDERS: Emergency Provider Student in an Organized Health Care Education/Training Program; PCP Family Medicine
DX: R55 Syncope and collapse (principal); J90 Pleural effusion, not elsewhere classified; E10.65 Type 1 diabetes mellitus with hyperglycemia; I99.8 Other disorder of circulatory system; E10.22 Type 1 diabetes mellitus with diabetic chronic kidney disease; N18.6 End stage renal disease; E10.42 Type 1 diabetes mellitus with diabetic polyneuropathy; E10.43 Type 1 diabetes mellitus with diabetic autonomic (poly)neuropathy; E10.51 Type 1 diabetes mellitus with diabetic peripheral angiopathy without gangrene; E10.621 Type 1 diabetes mellitus with foot ulcer; E10.649 Type 1 diabetes mellitus with hypoglycemia without coma; G70.00 Myasthenia gravis without (acute) exacerbation; I12.0 Hypertensive chronic kidney disease with stage 5 chronic kidney disease or end stage renal disease; K31.84 Gastroparesis; Z79.4 Long term (current) use of insulin; Z79.82 Long term (current) use of aspirin; Z79.899 Other long term (current) drug therapy; Z87.891 Personal history of nicotine dependence; Z89.512 Acquired absence of left leg below knee; Z99.2 Dependence on renal dialysis
CPT/HCPCS: 70450; 71045; 80048; 83605; 85025; 87040; 93005; 94760; 99285; J7030

== ENCOUNTER 2020-10-12 11:23 | Observation (INO) | payer MEDICARE, MEDICAID, SELFPAY ==
[2020-10-11 19:57] VITALS: BMI 13.5
[2020-10-12] VITALS (15 sets, daily range): BP systolic 62–92; BP diastolic 38–64; PULSE 52–92; RESP 9–18; TEMP 33.9–36.3; O2SAT 80–100; BMI 17.9; BMI 15.0
--- NOTE | 2020-10-12 11:49 | RAD_ITS ---
STUDY: X-RAY CHEST REASON FOR EXAM: Male, 44 years old. Line placement. TECHNIQUE: Single frontal view of the chest. COMPARISON: 10/11/2020. FINDINGS: NG tube placed with side hole at the GE junction. Tube should be advanced at least 4 cm. Tip of endotracheal tube approximately 4.1 cm above the amie. Right internal jugular catheter placed with tip projected over the lower SVC. Near right pneumothorax with stable hyperexpansion and bilateral fluid collections. There is no demonstrated pleural abnormality. Normal size heart. Normal mediastinum and nathaniel. Normal visualized pulmonary arteries. Normal visualized aortic arch and descending thoracic aorta. Normal visualized thoracic spine. Normal visualized ribs, clavicles, and shoulders. There is no demonstrated abnormality of the visualized soft tissue structures of the upper abdomen. RAD/Chest 1 View (Portable) IMPRESSION: Placement of NG tube, endotracheal tube and right subclavian catheter. Hyperexpansion with small right pneumothorax which is new since the comparison study. N.B. : The above Results were Read Back by Riley Diaz MD to Dr. Zacarias MD, and understanding confirmed on 10/12/2020 12:41:30 (ET). Electronically Signed: Riley Diaz MD at 12:42 EDT , Service support ,
--- NOTE | 2020-10-12 11:49 | EKG12_ITS ---
Test Reason : POST ARREST Blood Pressure : / mmHG Vent. Rate : 088 BPM Atrial Rate : 088 BPM P-R Int : 176 ms QRS Dur : 106 ms QT Int : 396 ms P-R-T Axes : 072 057 099 degrees QTc Int : 479 ms Normal sinus rhythm Nonspecific T wave abnormality Prolonged QT Poor R wave progression Abnormal ECG Confirmed by BUBBA PACHECO, PEDRO ([id number]), book or script editor BART GATES ([id number]) on 10/14/2020 12:32:28 PM Referred By: EDITH Confirmed By:PEDRO MAC MD
--- NOTE | 2020-10-12 12:02 | CM.ED ---
SOCIAL WORK No family present at this time. Call to patient's mother who reports we are on our way. SW to remain available. Leydi Colon, SORTING MACHINE ATTENDANT, MACHINE WEDGER
[2020-10-12 12:03] LABS: Absolute Lymphocyte Count 0.67 X10^3/uL (0.83-4.51); Absolute Neutrophil Count 10.1 X10^3/uL (2.0-7.7); Basophil# 0.06 X10^3/uL; Basophil% 0.5 % (0-1); Eosinophil# 0.04 X10^3/uL; Eosinophils% 0.3 % (0-5); Hematocrit 43.6 % (40-54); Hemoglobin 13.7 g/dL (13.0-16.5); Lymphocyte # 0.67 X10^3/ul (0.83-4.51); Lymphocyte % 5.7 % (19-41); Mean Corp Hgb Conc 31.4 g/dL (32-36); Mean Corpuscular Hgb 28.6 pg (27.0-32.0); Mean Platelet Vol. 11.9 fl (6.2-12.0); Monocyte# 0.83 X10^3/uL; NRBC Flagged by Analyzer 0.5 % (0-5); Neutrophil # 10.06 X10^3/uL (2.7-7.7); Platelet Count 193 K/mm3 (150-450); RBC Distribution Width CV 16.9 % (11.6-14.6); RBC Distribution Width SD 56.3 fl (35.1-43.9); Red Blood Count 4.79 M/mm3 (4.6-6.2); White Blood Count 11.8 K/mm3 (4.4-11.0)
[2020-10-12 12:14] LABS: International Normalized Ratio 1.4; Prothrombin Time (Protime)PT. 16.5 SECONDS (11.7-14.9)
[2020-10-12 12:15] LABS: Partial Thromboplast Time 34.3 Seconds (24.1-36.2)
--- NOTE | 2020-10-12 12:25 | CM.ED ---
SOCIAL WORK Family arrived to ER. Dr. Adames met with family. Plan to extubate once all family has been in. Emotional support provided to family in room. Leydi Colon, SANITATION WORKER CLEANING EQUIPMENT, PHARMACY CUSTOMER CARE SPECIALIST
[2020-10-12 12:53] LABS: ALB/GLOB Ratio 0.5 RATIO (0.9-2.4); AST(SGOT) 973 U/L (15-37); Alanine Aminotransfer ALT/SGPT 530 U/L (16-61); Albumin, Serum 1.9 g/dL (3.2-5.0); Alkaline Phosphatase 1734 U/L (45-117); Anion Gap 15 (5-15); BUN 52 mg/dL (7-18); BUN/Creat Ratio 16.6 RATIO (10-20); Calcium,Total 8.1 mg/dL (8.5-10.1); Chloride 100 mmol/L (98-107); Creatinine, Serum 3.14 mg/dL (0.70-1.30); EST Glomerular Filtration Rate 23 mL/min (>60); Est Glom Filt Rate - Afr Amer 28 mL/min (>60); Estimated Creatinine Clearance 17.44 ml/min; Globulin 4.2 g/dL (2.2-4.2); Glucose 226 mg/dL (74-106); Lipase < 10 U/L (73-393); Protein, Total 6.1 g/dL (6.4-8.2); Sodium Level 135 mmol/L (136-145); Troponin-I HS 18.6 pg/mL (3.0-78.5)
[2020-10-12 12:54] LABS: Lactic Acid 4.1 mmol/L (0.4-1.9)
--- NOTE | 2020-10-12 13:41 | EX.ED.DYSGE1 ---
HPI History of Present Illness Chief Complaint: CPR Informant: family and EMS Narrative Narrative: 44-year-old male with multiple medical problems including end-stage renal disease on dialysis and coronary artery disease had a witnessed cardiac arrest today. EMS arrived within about 5 minutes. Presenting rhythm was ventricular fibrillation and received 3 defibrillations and 1 epinephrine. They placed an eye gel transported. EMS states that they were told by family that he does not want to exist in a persistent vegetative state but they wanted him to receive CPR and ACLS. [facility] Medical History (Updated 10/12/20 @ 13:[address] Rome Adames, DO) Cellulitis of right leg Chronic renal failure, stage 4 (severe) Diabetes type I Diabetic nephropathy, type I Diabetic peripheral neuropathy End stage chronic kidney disease ESRD (end stage renal disease) Foot ulcer, left Gastroparesis due to DM HTN (hypertension) Hypoglycemia Hypoxia IBS (irritable bowel syndrome) Left leg and foot cellulitis Myasthenia gravis PAD (peripheral artery disease) Peripheral vascular disease Pneumonia Respiratory failure Home Medications Calcium Acetate 1 cap PO TIDCM 02/14/20 [History Last Taken Unknown] amitriptyline 2 tab PO QHS 02/14/20 [History Last Taken Unknown] aspirin 81 mg PO DAILY@0800 02/14/20 [History Last Taken Unknown] cholestyramine (with sugar) 4 gm PO BID 02/14/20 [History Last Taken Unknown] clopidogrel 75 mg PO DAILY 02/14/20 [History Last Taken Unknown] levothyroxine 50 mcg PO DAILY 02/14/20 [History Last Taken Unknown] montelukast 10 mg PO QHS 02/14/20 [History Last Taken Unknown] venlafaxine 150 mg PO DAILY 02/14/20 [History Last Taken Unknown] B complex-vitamin C-folic acid 0.8 mg PO DAILY 02/22/20 [History Last Taken Unknown] Triphrocaps 1 mg PO DAILY 02/22/20 [History Last Taken Unknown] bupropion HCl 150 mg PO BID 02/22/20 [History Last Taken Unknown] pantoprazole 40 mg PO DAILY 02/22/20 [History Last Taken Unknown] pyridostigmine bromide 60 mg PO DAILY 02/22/20 [History Last Taken Unknown] amlodipine 10 mg PO DAILY #0 tab 02/28/20 [Rx Last Taken Unknown] insulin glargine 8 units SC BREAKFAST pen 02/28/20 [Rx Last Taken Unknown] insulin lispro See Protocol SC ACHS insuln.pen 02/28/20 [Rx Last Taken Unknown] melatonin 3 mg PO QHS PRN tab 02/28/20 [Rx Last Taken Unknown] menthol-zinc oxide 1 applic TOPICAL TID tube 02/28/20 [Rx Last Taken Unknown] metoprolol tartrate 100 mg PO BID tab 02/28/20 [Rx Last Taken Unknown] nystatin 500,000 unit PO 4X/DAY udc 02/28/20 [Rx Last Taken Unknown] albuterol sulfate 90 mcg/actuation aerosol inhaler 2 puff INHALATION Q4H PRN #18 gm 07/14/20 [Rx Last Taken Unknown] fluticasone furoate 100 mcg-vilanterol 25 mcg/dose inhalation powder 1 inh INHALATION DAILY #60 each 07/14/20 [Rx Last Taken Unknown] Allergy/AdvReac Type Severity Reaction Status Date / Time levofloxacin [From Levaquin] Allergy Pain in Verified 10/12/20 11:42 joints lisinopril Allergy Angioedema Verified 10/12/20 11:42 losartan Allergy Angioedema Verified 10/12/20 11:42 metoclopramide HCl Allergy Hives Verified 10/12/20 11:42 [From Reglan] Family History Father Cancer Hypertension Mother Thyroid disorder Surgical History S/P thymectomy Status post creation of arteriovenous fistula (~04/2019) Status post laparoscopic cholecystectomy Social History Smoking Status: Former smoker alcohol intake: never substance use type: marijuana ROS ROS ED Review of Systems ROS Unobtainable: due to mental status EXAM Physical Exam Const Vital Signs: 10/12/20 11:24 10/12/20 11:34 10/12/20 11:35 Temperature 97.4 F L Temperature Source Temporal Pulse Rate 92 Respiratory Rate 9 L Respiratory Effort Agonal Blood Pressure 92/38 L Blood Pressure Mean 56 Pulse Ox 96 Oxygen Delivery Method Ambu-Bag Mechanical Ventilator Fraction of Inspired Oxygen (FIO2) 10/12/20 11:36 10/12/20 11:40 10/12/20 11:50 Temperature Temperature Source Pulse Rate 92 Respiratory Rate 12 14 Respiratory Effort Blood Pressure 62/38 L 76/57 L Blood Pressure Mean 63 Pulse Ox 80 99 97 Oxygen Delivery Method Ambu-Bag Ambu-Bag Fraction of Inspired Oxygen (FIO2) 50 40 10/12/20 12:15 10/12/20 12:55 10/12/20 13:02 Temperature Temperature Source Pulse Rate 68 61 60 Respiratory Rate 15 14 16 Respiratory Effort Blood Pressure 71/62 L 71/60 L 71/61 L Blood Pressure Mean 65 63 64 Pulse Ox 97 97 97 Oxygen Delivery Method Room Air Mechanical Ventilator Mechanical Ventilator Fraction of Inspired Oxygen (FIO2) 10/12/20 14:27 10/12/20 15:18 Temperature Temperature Source Pulse Rate 60 60 Respiratory Rate 15 18 Respiratory Effort Blood Pressure 77/64 L 66/57 L Blood Pressure Mean 68 60 Pulse Ox 91 91 Oxygen Delivery Method Room Air Room Air Fraction of Inspired Oxygen (FIO2) Positive cachectic and unkempt General Appearance ED: unkempt and cachectic Nutritional Appearance: cachectic HEENT Reports normocephalic, head/scalp atraumatic and dry mucous membranes HEENT Narrative: There is an eye gel in place Mouth ED: Yes dry mucous membranes Mouth: dry mucous membranes Eyes Eyes Narrative: Pupils are fixed at 3 mm. No corneal reflex. Neck no lymphadenopathy, supple and no JVD Resp Resp Narrative: Patient is apneic. Respirations are be given through the eye gel Cardio regular rate, regular rhythm and no murmurs GI normal to inspection, nondistended, normoactive bowel sounds Palpation: soft Narrative: Loss of bowel control and bladder control Back/Spine normal ROM Extremity Extremity Narrative: Left BKA. Positive thrill in fistula left forearm. IO present in left proximal humerus General Extremety ED: Yes edema General Extremity: edema Neuro Neuro Narrative: Patient is unresponsive Psych Appearance: unkempt Mood & Affect: depressed and tearful Skin no rashes or lesions noted MDM MDM MDM Narrative Medical decision making narrative: A right internal jugular central line was placed using ultrasound guidance using the modified Seldinger technique on the first attempt. Was secured into place. He was intubated with an 8 oh endotracheal tube in the first attempt without any difficulty. Post intubation x-ray shows small pneumothorax on the right side probably due to CPR. Patient received IV fluids. He has not required any sedation. He is noted to have few agonal breaths. The patient's mother and family have come to the emergency room. They note that he does not want to live on machines. They understand that we are essentially keeping him alive at the present time. They would like to call his children and from their homes to say goodbye to him and then they would like him extubated. I think this is a reasonable request. Patient was extubated. After 1 hour of observation I spoke with the hospitalist and the patient will be admitted. DNR form on chart. Lab Data Attestation: I reviewed the patient's lab results. Labs: Laboratory Results - last 24 hr 10/12/20 10/12/20 10/12/20 11:55 11:55 11:55 WBC 11.8 H RBC 4.79 Hgb 13.7 Hct 43.6 MCV 91.0 MCH 28.6 MCHC 31.4 L RDW Std Deviation 56.3 H RDW Coeff of Fidel 16.9 H Plt Count 193 MPV 11.9 Immature Gran % (Auto) 1.500 H Neut % (Auto) 85.0 H Lymph % (Auto) 5.7 L [place] % (Auto) 7.0 Eos % (Auto) 0.3 Baso % (Auto) 0.5 Absolute Neuts (auto) 10.1 H Absolute Lymphs (auto) 0.67 L Nucleated RBC % 0.5 PT 16.5 H INR 1.4 APTT 34.3 Sodium 135 L Potassium 4.0 Chloride 100 Carbon Dioxide 20.0 L Anion Gap 15 BUN 52 H Creatinine 3.14 H Estim Creat Clear Calc 17.44 Est GFR (MDRD) Af Amer 28 L Est GFR (MDRD) Non-Af 23 L BUN/Creatinine Ratio 16.6 Glucose 226 H Lactic Acid Calcium 8.1 L Total Bilirubin 0.50 AST 973 H ALT 530 H Alkaline Phosphatase 1734 H Troponin I High Sens 18.6 Total Protein 6.1 L Albumin 1.9 L Globulin 4.2 Albumin/Globulin Ratio 0.5 L Lipase < 10 L 10/12/20 11:55 WBC RBC Hgb Hct MCV MCH MCHC RDW Std Deviation RDW Coeff of Fidel Plt Count MPV Immature Gran % (Auto) Neut % (Auto) Lymph % (Auto) [place] % (Auto) Eos % (Auto) Baso % (Auto) Absolute Neuts (auto) Absolute Lymphs (auto) Nucleated RBC % PT INR APTT Sodium Potassium Chloride Carbon Dioxide Anion Gap BUN Creatinine Estim Creat Clear Calc Est GFR (MDRD) Af Amer Est GFR (MDRD) Non-Af BUN/Creatinine Ratio Glucose Lactic Acid 4.1 H* Calcium Total Bilirubin AST ALT Alkaline Phosphatase Troponin I High Sens Total Protein Albumin Globulin Albumin/Globulin Ratio Lipase Radiography Diagnostic Testing: Radiology Impression Chest X-Ray 10/12/20 11:49 IMPRESSION: Placement of NG tube, endotracheal tube and right subclavian catheter. Hyperexpansion with small right pneumothorax which is new since the comparison study. N.B. : The above Results were Read Back by Riley Diaz MD to Dr. Zacarias MD, and understanding confirmed on 10/12/2020 12:41:30 (ET). Electronically Signed: Riley Diaz MD at 12:42 EDT , Service support , ADDENDUM: 10/12/20 1249 IMPRESSION: Placement of NG tube, endotracheal tube and right subclavian catheter. Hyperexpansion with small right pneumothorax which is new since the comparison study. N.B. : The above Results were Read Back by Riley Diaz MD to Dr. Zacarias MD, and understanding confirmed on 10/12/2020 12:41:30 (ET). Electronically Signed: Riley Diaz MD at 12:42 EDT , Service support , EKG Initial EKG: Attestation: I personally reviewed and interpreted this EKG as follows: Comments: EKG demonstrates a normal sinus rhythm at a rate of 88 bpm. Critical Care Time Critical Care Time: Yes Critical care time (excluding procedures): 30-74 minutes (35 minutes), Including time spent:, Discussing w/Patient &/or Family/Automotive Glass Specialist, Discussing w/Consultants, Arranging Admission or Transfer and Performing Direct Patient Care at Bedside Discharge Plan Dx/Rx/DC Orders Clinical Impression: Cardiac arrest with ventricular fibrillation Disposition [facility]position: [facility]
--- NOTE | 2020-10-12 14:10 | CM.ED ---
SOCIAL WORK Family requesting extubation at this time. Emotional support provided. Nursing and Dr. Zacarias Colon, IT SUPPORT CONSULTANT, BAGGAGE CHECKER
[2020-10-12] MEDS: LORazepam 2 MG/ML Syringe 1 MG IV (14:14)
[2020-10-12] MEDS: Morphine 4 MG/ML Syringe IV (14:14)
[2020-10-12] MEDS: Glycopyrrolate 0.2 MG/ML Vial 0.1 MG IV ×2 (14:20→23:24)
--- NOTE | 2020-10-12 14:37 | CPS ---
Pt terminally extubated by this JOURNEY LINEMAN at 14:23 per .
--- NOTE | 2020-10-12 15:17 | CHAPLAIN ---
Type of Pastoral Visit _x__ Initial Visit ___ Follow-up Visit ___ On-call Visit ___ General Patient Visit ___ Spiritual Assessment ___ Family Conference ___ Bereavement ___ Rapid Response ___ Code Blue ___ Other (describe below) Pastoral Care Referral From ___ Patient ___ Family ___ Nurse _x__ Physician ___ Shelf Drier Operator ___ Circulation Supervisor ___ Other (describe below) Sacrament/Intervention _x__ Active listening ___ Anointing ___ Advent _x__ Bereavement ___ Communion ___ Radha exploration ___ ___ Life review _x__ Prayer ___ Reconciliation ___ Sacrament of Sick _x__ Supportive presence ___ Wedding ___ Other (describe below) Pastoral Comments patient was extubated in trauma room with multiple family members at bedside; offer of presence and support given; mother of pt welcomes a prayer spoken; at extubation the family remains in room and so does this sausage mixer; again support and prayer offered;
[2020-10-12 15:59] LABS: Reflex Lactate? Y
--- NOTE | 2020-10-12 16:03 | PCM.HP.STD ---
HPI - General HPI Narrative AMARILYS KAISER, is a 44 M who presented after witnessed cardiac arrest at home. EMS arrived within 5 minutes. His presenting rhythm was ventricular fibrillation. He was defibrillated x3 and had 1 round of epinephrine during transport. EMS reported to the emergency department that he was told by family that he did not want a exist in a persistent vegetative state but they wanted him to receive CPR and ACLS upon arrival of the squad. Mr. Lopes has multiple medical problems(see below). ROSC was achieved in the field. Upon arrival he was intubated and a right internal jugular central venous catheter was placed. He has not required any sedation since he arrived in the emergency department has had few agonal breaths on the ventilator. Upon arrival of his family to the ED his family indicated that he would not want to live like this and called his children in to say goodbye and terminally extubated him. He was extubated but did not . He was observed for approximately 60 minutes in the emergency department and had a blood pressure of 66/57, pulse of 60, respiratory rate of approximately 18 and an oxygen saturation of 91% so request for admission for end-of-life care was made. He will be admitted for [facility] for end-of-life care. [facility] Medical History (Updated 10/12/20 @ 16:[address] Sharmaine Vang DO) Cellulitis of right leg Chronic renal failure, stage 4 (severe) Diabetes type I Diabetic nephropathy, type I Diabetic peripheral neuropathy End stage chronic kidney disease ESRD (end stage renal disease) Foot ulcer, left Gastroparesis due to DM HTN (hypertension) Hypoglycemia Hypoxia IBS (irritable bowel syndrome) Left leg and foot cellulitis Myasthenia gravis PAD (peripheral artery disease) Peripheral vascular disease Pneumonia Respiratory failure Home Medications Calcium Acetate 1 cap PO TIDCM 02/14/20 [History Last Taken Unknown] amitriptyline 2 tab PO QHS 02/14/20 [History Last Taken Unknown] aspirin 81 mg PO DAILY@0800 02/14/20 [History Last Taken Unknown] cholestyramine (with sugar) 4 gm PO BID 02/14/20 [History Last Taken Unknown] clopidogrel 75 mg PO DAILY 02/14/20 [History Last Taken Unknown] levothyroxine 50 mcg PO DAILY 02/14/20 [History Last Taken Unknown] montelukast 10 mg PO QHS 02/14/20 [History Last Taken Unknown] venlafaxine 150 mg PO DAILY 02/14/20 [History Last Taken Unknown] B complex-vitamin C-folic acid 0.8 mg PO DAILY 02/22/20 [History Last Taken Unknown] Triphrocaps 1 mg PO DAILY 02/22/20 [History Last Taken Unknown] bupropion HCl 150 mg PO BID 02/22/20 [History Last Taken Unknown] pantoprazole 40 mg PO DAILY 02/22/20 [History Last Taken Unknown] pyridostigmine bromide 60 mg PO DAILY 02/22/20 [History Last Taken Unknown] amlodipine 10 mg PO DAILY #0 tab 02/28/20 [Rx Last Taken Unknown] insulin glargine 8 units SC BREAKFAST pen 02/28/20 [Rx Last Taken Unknown] insulin lispro See Protocol SC ACHS insuln.pen 02/28/20 [Rx Last Taken Unknown] melatonin 3 mg PO QHS PRN tab 02/28/20 [Rx Last Taken Unknown] menthol-zinc oxide 1 applic TOPICAL TID tube 02/28/20 [Rx Last Taken Unknown] metoprolol tartrate 100 mg PO BID tab 02/28/20 [Rx Last Taken Unknown] nystatin 500,000 unit PO 4X/DAY udc 02/28/20 [Rx Last Taken Unknown] albuterol sulfate 90 mcg/actuation aerosol inhaler 2 puff INHALATION Q4H PRN #18 gm 07/14/20 [Rx Last Taken Unknown] fluticasone furoate 100 mcg-vilanterol 25 mcg/dose inhalation powder 1 inh INHALATION DAILY #60 each 07/14/20 [Rx Last Taken Unknown] Allergy/AdvReac Type Severity Reaction Status Date / Time levofloxacin [From Levaquin] Allergy Pain in Verified 10/12/20 11:42 joints lisinopril Allergy Angioedema Verified 10/12/20 11:42 losartan Allergy Angioedema Verified 10/12/20 11:42 metoclopramide HCl Allergy Hives Verified 10/12/20 11:42 [From Reglan] Family History Father Cancer Hypertension Mother Thyroid disorder Surgical History S/P thymectomy Status post creation of arteriovenous fistula (~04/2019) Status post laparoscopic cholecystectomy Social History Smoking Status: Former smoker alcohol intake: never substance use type: marijuana ROS Review of Systems ROS Unobtainable: due to endotracheal tube and due to mental status Vital Signs Vital Signs Vital Signs: 10/12/20 11:24 10/12/20 11:34 10/12/20 11:35 Temperature 97.4 F L Temperature Source Temporal Pulse Rate 92 Respiratory Rate 9 L Respiratory Effort Agonal Blood Pressure 92/38 L Blood Pressure Mean 56 Pulse Ox 96 Oxygen Delivery Method Ambu-Bag Mechanical Ventilator Fraction of Inspired Oxygen (FIO2) 10/12/20 11:36 10/12/20 11:40 10/12/20 11:50 Temperature Temperature Source Pulse Rate 92 Respiratory Rate 12 14 Respiratory Effort Blood Pressure 62/38 L 76/57 L Blood Pressure Mean 63 Pulse Ox 80 99 97 Oxygen Delivery Method Ambu-Bag Ambu-Bag Fraction of Inspired Oxygen (FIO2) 50 40 10/12/20 12:15 10/12/20 12:55 10/12/20 13:02 Temperature Temperature Source Pulse Rate 68 61 60 Respiratory Rate 15 14 16 Respiratory Effort Blood Pressure 71/62 L 71/60 L 71/61 L Blood Pressure Mean 65 63 64 Pulse Ox 97 97 97 Oxygen Delivery Method Room Air Mechanical Ventilator Mechanical Ventilator Fraction of Inspired Oxygen (FIO2) 10/12/20 14:27 10/12/20 15:18 Temperature Temperature Source Pulse Rate 60 60 Respiratory Rate 15 18 Respiratory Effort Blood Pressure 77/64 L 66/57 L Blood Pressure Mean 68 60 Pulse Ox 91 91 Oxygen Delivery Method Room Air Room Air Fraction of Inspired Oxygen (FIO2) Weight Weight: 41.5 kg Body Mass Index (BMI) 17.9 Physical Exam Const Constitutional Narrative: Cachectic appearing white male lying on the gurney in the emergency department, surrounded by family, shallow intermittent respirations with no meaningful response to any type of stimuli HEENT normocephalic and head/scalp atraumatic Eyes Eyes Narrative: Pupils are fixed and dilated Neck Neck Narrative: Right internal jugular venous catheter in place Resp Resp Narrative: Shallow respiratory efforts but no signs of distress Cardio regular rate, regular rhythm, S1 normal heart sound and S2 normal heart sound GI soft to palpation, non-tender and non-distended GI Narrative: Nondistended, flat, hypoactive bowel sounds Extremity Extremity Narrative: Severely diminished lean muscle mass, right BKA, pedal pulses are barely palpable, no clubbing, no edema Skin Skin Narrative: Thin skin with multiple scattered ecchymosis bilateral upper extremities Neuro Neuro Narrative: No meaningful interaction, no gag reflex, no pupillary reflex, no corneal reflex Results Lab / Micro Data Attestation: I reviewed the patient's lab results. Result Diagrams: 10/12/20 11:55 10/12/20 11:55 Labs: Laboratory Results - last 24 hr 10/12/20 11:55: WBC 11.8 H, RBC 4.79, Hgb 13.7, Hct 43.6, MCV 91.0, MCH 28.6, MCHC 31.4 L, RDW Std Deviation 56.3 H, RDW Coeff of Fidel 16.9 H, Plt Count 193, MPV 11.9, Immature Gran % (Auto) 1.500 H, Neut % (Auto) 85.0 H, Lymph % (Auto) 5.7 L, Craven % (Auto) 7.0, Eos % (Auto) 0.3, Baso % (Auto) 0.5, Absolute Neuts (auto) 10.1 H, Absolute Lymphs (auto) 0.67 L, Nucleated RBC % 0.5 10/12/20 11:55: PT 16.5 H, INR 1.4, APTT 34.3 10/12/20 11:55: Sodium 135 L, Potassium 4.0, Chloride 100, Carbon Dioxide 20.0 L, Anion Gap 15, BUN 52 H, Creatinine 3.14 H, Estim Creat Clear Calc 17.44, Est GFR (MDRD) Af Amer 28 L, Est GFR (MDRD) Non-Af 23 L, BUN/Creatinine Ratio 16.6, Glucose 226 H, Calcium 8.1 L, Total Bilirubin 0.50, AST 973 H, ALT 530 H, Alkaline Phosphatase 1734 H, Troponin I High Sens 18.6, Total Protein 6.1 L, Albumin 1.9 L, Globulin 4.2, Albumin/Globulin Ratio 0.5 L, Lipase < 10 L 10/12/20 11:55: Lactic Acid 4.1 H* Radiology Impression Chest X-Ray 10/12/20 11:49 IMPRESSION: Placement of NG tube, endotracheal tube and right subclavian catheter. Hyperexpansion with small right pneumothorax which is new since the comparison study. N.B. : The above Results were Read Back by Riley Diaz MD to Dr. Zacarias MD, and understanding confirmed on 10/12/2020 12:41:30 (ET). Electronically Signed: Riley Diaz MD at 12:42 EDT , Service support , ADDENDUM: 10/12/20 1249 IMPRESSION: Placement of NG tube, endotracheal tube and right subclavian catheter. Hyperexpansion with small right pneumothorax which is new since the comparison study. N.B. : The above Results were Read Back by Riley Diaz MD to Dr. Zacarias MD, and understanding confirmed on 10/12/2020 12:41:30 (ET). Electronically Signed: Riley Diaz MD at 12:42 EDT , Service support , Assessment & Plan Assessment/Plan (1) Cardiac arrest with ventricular fibrillation: (2) Shock liver: (3) End stage chronic kidney disease: (4) Lactic acidosis: (5) Diabetes type I: QUALIFIERS: Diabetes mellitus complication status: with unspecified complications Qualified Code(s): E10.8 - Type 1 diabetes mellitus with unspecified complications PLAN: Assessment: Cardiopulmonary arrest Shock liver Lactic acidosis End-stage renal disease on hemodialysis DM-1 Peripheral vascular disease Chronic anemia secondary to renal disease Myasthenia gravis Hypertension Hypothyroidism Depression Severe malnutrition Plan: Patient extubated in the emergency department but did not within 60 minutes of extubation so we were asked to admit the patient for end-of-life care -As needed Dilaudid for terminal agitation/dyspnea -As needed Robinul -3 units of Lantus every morning to prevent DKA as patient is a type I diabetic -No blood sugar checks -Life expectancy is minutes to hours Charges/Coding Visit Charges Inpatient E&M: 69307 Init Hosp L2
[2020-10-12] MEDS: HYDROmorphone 0.5 MG/0.5 ML SYRINGE IV ×2 (20:22→22:57)
[2020-10-12] MEDS: 0.9% Saline Lock 10 ML Syringe IV ×3 (20:23→23:24)
[2020-10-12 20:41] LABS: Bedside Glucose 272 mg/dL (70-110)
[2020-10-13] MEDS: 0.9% Saline Lock 10 ML Syringe IV ×3 (02:55→16:56)
[2020-10-13] MEDS: HYDROmorphone 0.5 MG/0.5 ML SYRINGE IV ×3 (02:55→16:56)
[2020-10-13 07:48] VITALS: BP 60/41; PULSE 50; RESP 16; TEMP 35.7; O2SAT 92
[2020-10-13 08:01] LABS: Bedside Glucose 238 mg/dL (70-110)
--- NOTE | 2020-10-13 11:15 | CASEMGMT ---
Social Work Note SW received referral that pt's family moncho like to talk to SW regarding POA and financial POA. SW in to speak with pt's family. SW discussed case with other SW's, pt is nonresponsive not able to sign any documents at this time. KENTRELL placed a call to Rossana PFEIFFER at [facility] to inquire how they handle this certain information. Rossana confirms that there is nothing that can be done as pt is not able to sign documents. Rossana states that once pt expires, HCPOA expires as well. If pt has an executive of estate, it would go to that individual for decision making after pt expires but if pt doesn't have an executive of estate, pt's family will need to go through the courts. Pt is nonresponsive and end of life care. Pt's sister present in room. Pt's sister states pt has completed HCPOA and LW. KENTRELL spoke with pt's sister that those documents once pt expires. SW asked pt's sister if pt has executive of estate and pt's sister states pt doesn't have executive of the estate. SW informed pt's sister that the family will need to go through the court system then. Pt's sister states that her main concern is her niece, pt's daughter who is 16, turning 17 next month. Pt's sister states pt has primary custody of his daughter as the biological mother signed away her parental rights. Pt's sister states she wants pt's social security, disability, to go into a trust for his daughter. SW informed pt's sister that pt is not responsive, this SW is not able to have pt sign anything. SW informed pt's sister that even if pt was responsive, this worker cannot complete financial POA and that has to go through a solar installer technician regardless. SW asked pt's sister who pt's daughter is staying with at this time. Pt's sister states pt's mother has been staying at pt's home and will continue to take care of the 16 year old. Pt's sister states pt also has another child, a son, but he is 18. Physician in room during most of conversation and recommended pt's sister get an estate solar installer technician. Physician also mentioned possibly transitioning pt to inpatient hospice later today. SW provided support to pt's sister throughout conversation and encouraged pt's sister to look into a solar installer technician at discharge. SW to continue to follow. Claudia Stroud LUNG GUN OPERATOR, AIR BRAKE MECHANIC
--- NOTE | 2020-10-13 12:30 | CASEMGMT ---
Social Work Note KENTRELL updated that pt's family will need to seek parental rights for pt's 16 year old daughter. SW in to speak with pt's family. Pt's mother Lisset and additional guest in pt's room. Lisset confirms she has been staying at pt's home recently and wants the best for pt's 16 year old daughter. Lisset states pt's daughter will continue to stay with her during this time. Lisset confirms that she would like pt's disability, social security to go into an account for pt's daughter. Lisset states she has her own money, doesn't need pt's, but she wants pt's mother for pt's daughter. Lisset confirms that pt's daughter, her biological mother, signed away her parental rights. KENTRELL spoke with Lisset about filing for parental rights for pt's 16 year old daughter. Lisset states her family is already at Probate Court to get guardianship paperwork for pt's daughter. KENTRELL educated pt that calling [facility] is also a good place to start in regards to guardianship for pt. Lisset states she is aware of [facility] and location as pt lives right [place] the [place] from the agency. KENTRELL encouraged Lisset as well to look into getting bank operations officer and Children Services involved in pt's case regarding his 16 year old daughter. Lisset states understanding. SW to continue to follow. Claudia Stroud OUTSIDE SALES CONSULTANT, FREEZER LABORATORY TECHNICIAN
--- NOTE | 2020-10-13 14:37 | CHAPLAIN ---
Type of Pastoral Visit ___ Initial Visit _x__ Follow-up Visit ___ On-call Visit ___ General Patient Visit ___ Spiritual Assessment ___ Family Conference ___ Bereavement ___ Rapid Response ___ Code Blue ___ Other (describe below) Pastoral Care Referral From ___ Patient _x__ Family ___ Nurse ___ Physician ___ Digital Media Associate ___ Email Marketer ___ Other (describe below) Sacrament/Intervention _x__ Active listening ___ Anointing ___ Spiritism _x__ Bereavement ___ Communion _x__ Radha exploration ___ _x__ Life review _x__ Prayer ___ Reconciliation ___ Sacrament of Sick _x__ Supportive presence ___ Wedding ___ Other (describe below) Pastoral Comments patient is unresponsive and at end of life; hospice is being brought in to offer care; mother and another family member are in room; both are talkative and give life review and a background of spiritual radha; both are open to spiritual care and support; prayer given
--- NOTE | 2020-10-13 15:56 | DCINST_ITS ---
Discharge Instructions Follow Up Care Test Results: Test results from this visit will be discussed in further detail at your follow-up appointment, if applicable. Discharge Plan Admission Admit Date/Time: 10/12/20 16:33 Attending Provider: Kadeem Patel Primary Care Provider: Jose Graham Consulting Providers: Susanna Bronson ; Van Burton ; Candi Rob ; Roberta Dallas ; Sia Junior ; Rosalee Juarez PUBLICITY AGENT Discharge Orders/Prescriptions Prescriptions: No Action albuterol sulfate [Ventolin HFA] 90 mcg/actuation HFA aerosol inhaler 2 puff INHALATION Q4H PRN (Reason: shortness of breath or wheezing) Qty: 18 RF: 6 Breo Ellipta 100-25 mcg/dose blister with device 1 inh INHALATION DAILY Qty: 60 RF: 6 venlafaxine 150 MG capsule 150 mg PO DAILY RF: 0 clopidogrel 75 MG tablet 75 mg PO DAILY RF: 0 amitriptyline 10 MG tablet 2 tab PO QHS RF: 0 levothyroxine 50 MCG tablet 50 mcg PO DAILY RF: 0 aspirin 81 MG tablet,chewable 81 mg PO DAILY@0800 RF: 0 montelukast 10 MG tablet 10 mg PO QHS RF: 0 cholestyramine (with sugar) 4 GM powder in packet 4 gm PO BID RF: 0 Calcium Acetate 667 MG capsule 1 cap PO TIDCM RF: 0 pantoprazole 40 MG tablet 40 mg PO DAILY RF: 0 pyridostigmine bromide 60 MG tablet 60 mg PO DAILY RF: 0 B complex-vitamin C-folic acid 0.8 MG tablet 0.8 mg PO DAILY RF: 0 bupropion HCl 150 MG tablet extended release 24 hr 150 mg PO BID RF: 0 Triphrocaps 1 mg PO DAILY RF: 0 nystatin 500,000 UNIT/5 ML suspension 500,000 unit PO 4X/DAY RF: 0 metoprolol tartrate 100 MG tablet 100 mg PO BID RF: 0 melatonin 3 MG tablet 3 mg PO QHS PRN (Reason: SLEEP) RF: 0 amlodipine 10 MG tablet 10 mg PO DAILY Qty: 0 RF: 0 insulin lispro 100 UNIT/ML insulin pen See Protocol unit SC ACHS RF: 0 insulin glargine 100 UNITS/ML insulin pen 8 units SC BREAKFAST RF: 0 menthol-zinc oxide 1 APPLIC ointment 1 applic TOPICAL TID RF: 0 Referrals / Follow Up: Jose Graham MD [Primary Care Provider] - Disposition Disposition (needs filled in before D/C Order can be placed): Hospice in Medical Facility
--- NOTE | 2020-10-13 15:58 | PCM.DC.SUM ---
Providers Date of Admission: 10/12/20 Primary Care Physician: Dr. Jose Graham MD Consultations 10/13/20 12:07 Consult: Hospice / Palliative Care Routine Consulting Provider: [facility] Reason for Consult: hospice referral EMERGENT Consult: No MD Notified: Yes Date Notified: 10/13/20 Time Notified: 12:07 Method of Notification: Answering Service Reason For Visit: CPA S/P TERMINAL EXTUBATION Diagnosis Discharge Diagnosis (1) Cardiac arrest with ventricular fibrillation: Status: Acute Code(s): I46.9 - Cardiac arrest, cause unspecified; I49.01 - Ventricular fibrillation (2) Shock liver: Status: Acute Code(s): K72.00 - Acute and subacute hepatic failure without coma (3) End stage chronic kidney disease: Status: Chronic Code(s): N18.6 - End stage renal disease (4) Lactic acidosis: Status: Acute Code(s): E87.2 - Acidosis (5) Diabetes type I: Status: Chronic Qualifiers: Diabetes mellitus complication status: with unspecified complications Qualified Code(s): E10.8 - Type 1 diabetes mellitus with unspecified complications Medications at Discharge Home Medications Calcium Acetate 1 cap PO TIDCM 02/14/20 amitriptyline 2 tab PO QHS 02/14/20 aspirin 81 mg PO DAILY@0800 02/14/20 cholestyramine (with sugar) 4 gm PO BID 02/14/20 clopidogrel 75 mg PO DAILY 02/14/20 levothyroxine 50 mcg PO DAILY 02/14/20 montelukast 10 mg PO QHS 02/14/20 venlafaxine 150 mg PO DAILY 02/14/20 B complex-vitamin C-folic acid 0.8 mg PO DAILY 02/22/20 Triphrocaps 1 mg PO DAILY 02/22/20 bupropion HCl 150 mg PO BID 02/22/20 pantoprazole 40 mg PO DAILY 02/22/20 pyridostigmine bromide 60 mg PO DAILY 02/22/20 amlodipine 10 mg PO DAILY #0 tab 02/28/20 insulin glargine 8 units SC BREAKFAST pen 02/28/20 insulin lispro See Protocol SC ACHS insuln.pen 02/28/20 melatonin 3 mg PO QHS PRN tab 02/28/20 menthol-zinc oxide 1 applic TOPICAL TID tube 02/28/20 metoprolol tartrate 100 mg PO BID tab 02/28/20 nystatin 500,000 unit PO 4X/DAY udc 02/28/20 albuterol sulfate 90 mcg/actuation aerosol inhaler 2 puff INHALATION Q4H PRN #18 gm 07/14/20 fluticasone furoate 100 mcg-vilanterol 25 mcg/dose inhalation powder 1 inh INHALATION DAILY #60 each 07/14/20 Hospital Course Operations None Procedures CPR performed and Intubation Summary of Care Provided Minutes Spent on Discharge: 40 Hospital Course: Per HPI: AMARILYS KAISER, is a 44 M who presented after witnessed cardiac arrest at home. EMS arrived within 5 minutes. His presenting rhythm was ventricular fibrillation. He was defibrillated x3 and had 1 round of epinephrine during transport. EMS reported to the emergency department that he was told by family that he did not want a exist in a persistent vegetative state but they wanted him to receive CPR and ACLS upon arrival of the squad. Mr. Lopes has multiple medical problems(see below). ROSC was achieved in the field. Upon arrival he was intubated and a right internal jugular central venous catheter was placed. He has not required any sedation since he arrived in the emergency department has had few agonal breaths on the ventilator. Upon arrival of his family to the ED his family indicated that he would not want to live like this and called his children in to say goodbye and terminally extubated him. He was extubated but did not . He was observed for approximately 60 minutes in the emergency department and had a blood pressure of 66/57, pulse of 60, respiratory rate of approximately 18 and an oxygen saturation of 91% so request for admission for end-of-life care was made. He will be admitted for [facility] for end-of-life care. Hospital Course: 44-year-old male presents from home with witnessed cardiac arrest. He does have a history of myasthenia gravis as well as type 1 diabetes and renal failure necessitating dialysis 3 days a week. Family states that he did fine on Monday but was little bit more lethargic on Monday and then Monday morning he was found down and his family started CPR on him. He was brought into the hospital and was intubated however when family arrived they stated that he did not want to be intubated or on the machine therefore he was terminally extubated and hospice was consulted. Initially he was kept down in the ER for an hour to see if he would deteriorate quickly however he did maintain his oxygen saturations and heart rate therefore he was brought upstairs to the hospital for end-of-life management and he was able to make a 24 hours so with discussions in the family, they would prefer if he can be transferred to inpatient hospice unit for further care. Of note he has been on a low-dose Lantus while here and his blood sugar has remained in the 200s. Most recent vital signs are from this morning with a mean arterial pressure of 47, and a heart rate in the 50s. Physical Exam Const Orientation / Consciousness: comatose Nutritional Appearance: cachectic HEENT normocephalic Mouth: dry mucous membranes Eyes conjunctivae normal Eyes Narrative: No pupillary reaction Neck supple and no JVD Resp normal respiratory effort, no retractions and no use of accessory muscles Auscultation: Negative for crackles, rales, rhonchi or wheezes Cardio regular rhythm, S1 normal heart sound, S2 normal heart sound and no murmurs Rate: bradycardia GI soft to palpation and non-distended; Negative for hepatosplenomegaly Extremity no clubbing, cyanosis or edema Skin no rashes or lesions noted Neuro Neuro Narrative: No meaningful interaction Weight / BMI Weight Weight: 85 lb Body Mass Index (BMI) 15.0 ABG / Lab / Microbiology Data Result Diagrams: 10/12/20 11:55 10/12/20 11:55 Laboratory: Laboratory Results - last 24 hr 10/12/20 17:32: Lactic Acid Cancelled 10/12/20 20:10: POC Glucose 272 H 10/13/20 07:56: POC Glucose 238 H Meaningful Use Info Meaningful Use Diagnoses (Choose all that apply): None applicable Discharge Plan Admission Admit Date/Time: 10/12/20 16:33 Attending Provider: Kadeem Patel Primary Care Provider: Jose Graham Consulting Providers: Susanna Bronson ; Van Butron ; Candi Rob ; Roberta Dallas ; Sia Junior ; Rosalee Juarez WIRE HARNESS DESIGN ENGINEER Discharge Orders/Prescriptions Prescriptions: No Action albuterol sulfate [Ventolin HFA] 90 mcg/actuation HFA aerosol inhaler 2 puff INHALATION Q4H PRN (Reason: shortness of breath or wheezing) Qty: 18 RF: 6 Breo Ellipta 100-25 mcg/dose blister with device 1 inh INHALATION DAILY Qty: 60 RF: 6 venlafaxine 150 MG capsule 150 mg PO DAILY RF: 0 clopidogrel 75 MG tablet 75 mg PO DAILY RF: 0 amitriptyline 10 MG tablet 2 tab PO QHS RF: 0 levothyroxine 50 MCG tablet 50 mcg PO DAILY RF: 0 aspirin 81 MG tablet,chewable 81 mg PO DAILY@0800 RF: 0 montelukast 10 MG tablet 10 mg PO QHS RF: 0 cholestyramine (with sugar) 4 GM powder in packet 4 gm PO BID RF: 0 Calcium Acetate 667 MG capsule 1 cap PO TIDCM RF: 0 pantoprazole 40 MG tablet 40 mg PO DAILY RF: 0 pyridostigmine bromide 60 MG tablet 60 mg PO DAILY RF: 0 B complex-vitamin C-folic acid 0.8 MG tablet 0.8 mg PO DAILY RF: 0 bupropion HCl 150 MG tablet extended release 24 hr 150 mg PO BID RF: 0 Triphrocaps 1 mg PO DAILY RF: 0 nystatin 500,000 UNIT/5 ML suspension 500,000 unit PO 4X/DAY RF: 0 metoprolol tartrate 100 MG tablet 100 mg PO BID RF: 0 melatonin 3 MG tablet 3 mg PO QHS PRN (Reason: SLEEP) RF: 0 amlodipine 10 MG tablet 10 mg PO DAILY Qty: 0 RF: 0 insulin lispro 100 UNIT/ML insulin pen See Protocol unit SC ACHS RF: 0 insulin glargine 100 UNITS/ML insulin pen 8 units SC BREAKFAST RF: 0 menthol-zinc oxide 1 APPLIC ointment 1 applic TOPICAL TID RF: 0 Referrals / Follow Up: Jose Graham MD [Primary Care Provider] - Disposition Disposition (needs filled in before D/C Order can be placed): Hospice in Medical Facility Charges/Coding Visit Charges OBSV E&M: 16490 Observation care discharge
--- NOTE | 2020-10-13 16:55 | CASEMGMT ---
Social Work Note KENTRELL updated that pt will be transferred to [facility] inpatient unit today. KENTRELL placed a call to pt's CM Stephaniaisabel Garcia and updated her. KENTRELL discussed case with Jc Lopez, Breastfeeding Peer Counselor, KENTRELL to make CPS report to provide update on pt's situation. KENTRELL attempted to call [facility] CPS, they are closed for the day. At this time, pt's 16 year old daughter has a safe environment and adults taking care of her during pt's admission to [facility]. SW to make CPS report tomorrow to provide update on pt's situation and that pt's family is to seek guardianship for 16 year old. SW to follow up tomorrow with CPS to make CPS report. Plan: Pt to discharge to inpatient hospice unit today. Claudia Stroud SPECIAL EFFECTS PERSON, WATER SYSTEMS DESIGNER
--- NOTE | 2020-10-14 08:45 | CASEMGMT ---
Social Work Note SW placed a call to [facility] CPS and provided report/update to [place] with CPS. Claudia Stroud INSTRUMENTATION TECHNOLOGIST, JACQUARD TWINE POLISHER OPERATOR
== END 2020-10-13 17:19 | disposition hospice, inpatient (51) ==
LOC: ED 15:53 → MS3 16:29
PROVIDERS: Admitting Provider Internal Medicine; Emergency Provider Emergency Medicine; PCP Family Medicine; Visit Provider Family Medicine
DX: I46.9 Cardiac arrest, cause unspecified (principal); I49.01 Ventricular fibrillation; E10.51 Type 1 diabetes mellitus with diabetic peripheral angiopathy without gangrene; I12.0 Hypertensive chronic kidney disease with stage 5 chronic kidney disease or end stage renal disease; N18.6 End stage renal disease; E10.22 Type 1 diabetes mellitus with diabetic chronic kidney disease; K72.00 Acute and subacute hepatic failure without coma; E10.42 Type 1 diabetes mellitus with diabetic polyneuropathy; K58.9 Irritable bowel syndrome, unspecified; G70.00 Myasthenia gravis without (acute) exacerbation; Z79.82 Long term (current) use of aspirin; Z79.899 Other long term (current) drug therapy; Z87.891 Personal history of nicotine dependence; Z79.4 Long term (current) use of insulin; Z99.2 Dependence on renal dialysis; I25.10 Atherosclerotic heart disease of native coronary artery without angina pectoris
CPT/HCPCS: 31500; 36556; 51702; 71045; 80053; 82962; 83605; 83690; 84484; 85025; 85610; 85730; 93005; 94002; 96374; 96375; 96376; 99218; 99251; 99285; J7030; J7050; A4216; G0378; G0463